=== PATIENT | female | born 1945 | race Caucasian/White ===

== ENCOUNTER 2016-11-04 13:53 | Inpatient (IN) ==
--- NOTE | 2016-11-04 14:21 | Emergency Department Note ---
Disposition Clinical Impression: Acute exacerbation of CHF (congestive heart failure) Qualifiers: Congestive heart failure type: diastolic Qualified Code(s): I50.33 - Acute on chronic diastolic (congestive) heart failure Dyspnea Qualifiers: Dyspnea type: unspecified Qualified Code(s): R06.00 - Dyspnea, unspecified Disposition: Admitted As Inpatient Referrals: Adalberto Quijano MD [Primary Care Provider] - Forms: ED Satisfaction Letter SOB HPI - General Chief Complaint: ED Shortness of Breath/Dyspnea Stated Complaint: Shortness of breaths Time Seen by Provider: 11/04/16 14:13 Source: patient, family Limitations: no limitations Nursing Notes Reviewed: Yes Vital Signs Reviewed: Yes - History of Present Illness She is a 71-year-old female who presents today from [facility] for increasing shortness of breath and fluid retention. The patient has gained weight over the past 2 weeks she took an extra dose of Lasix for several days and then went back to her once a day 40 mg. 's [facility] office today she has been complaining of more dyspnea she was sent down here for admission for IV diuresis. She has some intermittent chest pain but no chest pain at this time she denies any fevers chills or productive cough. She states she is having some lower extremity and abdominal swelling. Pt Subjective Complaint: shortness of breath Onset (ago): week(s) (1) Severity: mild Consistency/Duration: gradually worsening Improves with: oxygen, rest, upright position Worsens with: lying flat, exertion Associated symptoms: Reports: lower extremity pain. Denies: sputum production Treatment prior to arrival: none Cough present: No Sputum production: No - Related Data Home Medications Medication Instructions Recorded Confirmed Escitalopram [Lexapro] 20 mg PO QAM 05/16/15 09/19/16 Rosuvastatin [Crestor] 40 mg PO QPM 05/16/15 09/19/16 Warfarin [Coumadin] 1.5 mg PO SUWETHFR 01/15/16 09/19/16 Linaclotide [Linzess] 290 mcg PO DAILY PRN 01/23/16 09/19/16 Insulin Glargine,Hum.rec.anlog 20 unit SQ QPM 07/06/16 09/19/16 [Lantus Solostar] Insulin LISPRO [Humalog] 8 unit SQ TIDWM MDD Sliding 07/06/16 09/19/16 Losartan Potassium [Cozaar] 50 mg PO DAILY 07/06/16 09/19/16 Warfarin [Coumadin] 3 mg PO MOWEFR 07/06/16 09/19/16 Cholecalciferol (Vitamin D3) 8,000 unit PO DAILY 08/07/16 09/19/16 [Vitamin D3] Oxygen 2 l NS HS 08/07/16 09/19/16 Isosorbide MONOnitrate (24 HR) 90 mg PO DAILY 09/19/16 09/19/16 [Imdur] Melatonin 10 mg PO HS 09/19/16 09/19/16 Previous Rx's Medication Instructions Recorded Ranolazine [Ranexa] 1,000 mg PO BID #60 tab.er.12h 08/01/15 Aspirin 81 mg PO DAILY tab.chew 02/05/16 Magnesium Oxide [Mag-Ox] 400 mg PO BID 30 Days 02/05/16 Potassium Chloride 10 meq PO BIDWM 30 Days 02/05/16 Furosemide [Lasix] 60 mg PO BID #100 tablet 03/13/16 Metoprolol [Lopressor] 100 mg PO BID #0 tablet 07/10/16 Nitroglycerin 0.4 mg SL Q5MIN PRN #0 tab.subl 07/10/16 Clopidogrel [Plavix] 75 mg PO DAILY #30 tablet 08/15/16 Pantoprazole Sodium [Protonix] 40 mg PO DAILY #30 tablet. 08/15/16 Sucralfate [Carafate] 1 gm PO TID #90 udc 08/15/16 Furosemide [Lasix] 40 mg PO AD #15 tablet 10/17/16 Potassium Chloride [K-Tab ER] 20 meq PO DAILY #30 tablet.er 10/30/16 Allergies Allergy/AdvReac Type Severity Reaction Status Date / Time phenylbutazone Allergy Rash Verified 09/07/16 13:54 [From Butazolidin] amitriptyline [From Elavil] AdvReac Headache Verified 09/07/16 13:54 codeine AdvReac Headache Verified 09/07/16 13:54 desipramine AdvReac Headache Verified 09/07/16 13:54 lisinopril AdvReac Cough Verified 09/07/16 13:54 meperidine [From Demerol] AdvReac Headache Verified 09/07/16 13:54 nalbuphine AdvReac Headache Verified 09/07/16 13:54 Nortriptyline AdvReac Headache Verified 09/07/16 13:54 tiagabine AdvReac Headache Verified 09/07/16 13:54 All systems ED: reviewed and negative except as stated. Constitutional: Reports: weakness. Denies: fever, chills Gastrointestinal: Denies: abdominal pain, vomiting, melena Past Medical History - Past Medical History Source: patient, old records reviewed, nursing notes reviewed Medical history: Reports: arthritis, atrial fibrillation, cancer, CHF, coronary artery disease, CVA, DVT, diabetes, GERD, hyperlipidemia, hypertension, myocardial infarction, osteoporosis, peripheral artery disease, renal disease, TIA, valvular heart disease, other Surgical history: Reports: angioplasty/stent, breast surgery, carotid endarterectomy, cholecystectomy, orthopedic, other, other Psychiatric history: Reports: anxiety, depression INFORMATION SYSTEMS ARCHITECT history: Reports: no INFORMATION SYSTEMS ARCHITECT history - Social History Smoking Status: Never smoker Smokeless Tobacco Status: No Alcohol use: Reports: rarely Drug use: Reports: none Physical Exam - General Limitations: no limitations General appearance: alert, in no apparent distress Course Vital Signs Temperature 98.7 F 11/04/16 13:54 Pulse Rate 51 11/04/16 13:54 Respiratory Rate 18 11/04/16 13:54 Blood Pressure 139/87 11/04/16 13:54 O2 Sat by Pulse Oximetry 98 11/04/16 13:54 Temperature 98.7 F 11/04/16 13:54 Pulse Rate 48 11/04/16 15:00 Respiratory Rate 18 11/04/16 15:00 Blood Pressure 129/68 11/04/16 15:00 O2 Sat by Pulse Oximetry 93 L 11/04/16 15:00 Oxygen Delivery Oxygen Delivery Room Air Shortness of Breath/Dyspnea - MDM Narrative Medical decision making narrative: Cardiology team Dr. Coronado came down to evaluate the patient limited to the hospitalist service. - Differential Diagnosis Likely: acute exacerbation of chronic obstructive airways disease, congestive heart failure, pneumonia, asthma with exacerbation, pulmonary embolism, arrhythmia - Medical Records Medical records reviewed: Yes I reviewed the patient's medical records. - Lab Data Lab results reviewed: Yes I reviewed the patient's lab results. Result diagrams: 11/04/16 14:47 11/04/16 14:47 Lab Results 11/04/16 11/04/16 11/04/16 Range/Units 14:47 14:47 14:47 WBC 5.5 (4.3-11.1) K/mcL RBC 4.09 (3.82-4.97) M/mcL Hgb 10.9 L (11.5-15.4) g/dL Hct 32.9 L (35.3-44.9) % MCV 80.4 L (83.0-100.0) fL MCH 26.7 L (28.0-33.3) pg MCHC 33.1 (31.6-35.5) g/dL RDW 14.6 H (11.5-14.5) % Plt Count 187 (140-400) K/mcL MPV 10.0 (9.4-12.4) fL Immature Gran % 0.9 (0-4) % Seg Neutrophils % 65.0 % Lymphocytes % 22.0 % Monocytes % 7.7 % Eosinophils % 4.0 % Basophils % 0.4 % Neutrophils # 3.6 (1.6-8.9) K/mcL Lymphocytes # 1.2 (0.6-4.6) K/mcL Monocytes # 0.4 (0.0-1.3) K/mcL Eosinophils # 0.2 (0.0-0.6) K/mcL Basophils # 0.0 (0.0-0.2) K/mcL Sodium 140 (136-145) mEq/L Potassium 3.7 (3.5-4.5) mEq/L Chloride 105 (98-109) mEq/L Carbon Dioxide 26 (19-29) mEq/L BUN 21 H (7-20) mg/dL Creatinine 0.97 (0.57-1.11) mg/dL Est GFR ( Amer) > 60 (> 60) Est GFR (Non-Af Amer) 57 L (> 60) BUN/Creatinine Ratio 22 (6-26) Glucose 223 H (70-99) mg/dL Calculated Osmolality 300 (280-300) Calcium 9.4 (8.6-10.8) mg/dL Troponin I 0.05 H* (0-0.03) ng/mL B-Natriuretic Peptide (0-100) pg/mL 11/04/16 Range/Units 14:47 WBC (4.3-11.1) K/mcL RBC (3.82-4.97) M/mcL Hgb (11.5-15.4) g/dL Hct (35.3-44.9) % MCV (83.0-100.0) fL MCH (28.0-33.3) pg MCHC (31.6-35.5) g/dL RDW (11.5-14.5) % Plt Count (140-400) K/mcL MPV (9.4-12.4) fL Immature Gran % (0-4) % Seg Neutrophils % % Lymphocytes % % Monocytes % % Eosinophils % % Basophils % % Neutrophils # (1.6-8.9) K/mcL Lymphocytes # (0.6-4.6) K/mcL Monocytes # (0.0-1.3) K/mcL Eosinophils # (0.0-0.6) K/mcL Basophils # (0.0-0.2) K/mcL Sodium (136-145) mEq/L Potassium (3.5-4.5) mEq/L Chloride (98-109) mEq/L Carbon Dioxide (19-29) mEq/L BUN (7-20) mg/dL Creatinine (0.57-1.11) mg/dL Est GFR ( Amer) (> 60) Est GFR (Non-Af Amer) (> 60) BUN/Creatinine Ratio (6-26) Glucose (70-99) mg/dL Calculated Osmolality (280-300) Calcium (8.6-10.8) mg/dL Troponin I (0-0.03) ng/mL B-Natriuretic Peptide 451 H (0-100) pg/mL - Radiology Data Radiology results reviewed: Yes I reviewed the patient's radiology results. - EKG Data EKG attestation: Yes I reviewed and interpreted this EKG. EKG shows normal: Reports: sinus rhythm Rate: Reports: bradycardia (49) Heart block present: Reports: 1st Degree Interpretation: Reports: nonspecific ST-T wave changes
--- NOTE | 2016-11-04 14:38 | Cardiology Consult Note ---
<Amaury Espinal - Last Filed: 11/04/16 14:31> Date of Encounter: 11/04/16 Time of Encounter: 14:31 Assessment and Plan (1) Acute exacerbation of CHF (congestive heart failure) Current Visit: No Status: Acute Failed outpatient management IV diuresis Echocardiogram Admission to Hospitalist Group Qualifiers: Congestive heart failure type: diastolic Qualified Code(s): I50.33 - Acute on chronic diastolic (congestive) heart failure (2) Diastolic heart failure Current Visit: No Status: Chronic Noted from previous echo. Qualifiers: Heart failure chronicity: acute on chronic Qualified Code(s): I50.33 - Acute on chronic diastolic (congestive) heart failure (3) Atrial fibrillation Current Visit: No Status: Chronic Paraoxysmal. On Warfarin. Last INR 2.2 Qualifiers: Atrial fibrillation type: paroxysmal Qualified Code(s): I48.0 - Paroxysmal atrial fibrillation (4) Diabetes Current Visit: No Status: Acute Qualifiers: Diabetes mellitus type: type 1 Diabetes mellitus complication status: without complication Qualified Code(s): E10.9 - Type 1 diabetes mellitus without complications (5) HTN (hypertension) Current Visit: No Status: Chronic Qualifiers: Hypertension type: essential hypertension Qualified Code(s): I10 - Essential (primary) hypertension (6) CAD (coronary artery disease) Current Visit: No Status: Chronic Qualifiers: Coronary Disease-Associated Artery/Lesion type: [place] artery [place] vs. transplanted heart: [place] heart Associated angina: with unspecified angina Qualified Code(s): I25.119 - Atherosclerotic heart disease of [place] coronary artery with unspecified angina pectoris (7) COPD (chronic obstructive pulmonary disease) Current Visit: No Status: Chronic Qualifiers: COPD type: unspecified COPD Qualified Code(s): J44.9 - Chronic obstructive pulmonary disease, unspecified (8) Factor V Leiden Current Visit: No Status: Chronic On warfarin therapy. No new complaints. No unilateral leg swelling. Discussion w patient/family: The assessment and plan as outlined above was discussed with the patient and/or family members who expressed understanding and agreement. All questions were answered. Thank you for involving us in the care of your patient. Please call with any questions. History of Present Illness Consult date: 11/04/16 Requesting physician: Mo Glover Consult reason: CHF exacerbation Chief complaint: Weight gain, fatuge, Dyspnea History of present illness: Ms. Fischer is a 71 year old female with history of CHF arrives to the outpatient cardiology office for concern for weight gain and generalized fatigue. The patient was sent to the ED for further work-up and possible admission for failed outpatient management of CHF. The patient recently received cardiac cath in 09/30. A stent was placed at that time. The patient has since been admitted at [facility] and was placed on IV lasix at that admission with an Echo performed with noted LVEF of 45%. The patient was also noted to have Diastolic dysfunction as well. The patient was discharged on no diuretic home. She saw Dr. Hewitt in outpatient clinic and was started again on lasix 40 mg Daily. She subsequently, roughly 5 days later, went to the ED for dyspnea and generalized fatigue where her dose was increased to 40 mg BID. The patient states that she has continued to gain weight, roughly 7 lbs in 1 month. She states that she becomes short of breath when she lies flat. She does admit to intermittent chest pressure that goes unrelieved by nitro. She does state that the nitro does help her breathing after she takes it when she lies down. She does admit to new leg swelling, but not over the last few days. Patient does admit to Hx of HTN, DMII, Factor V Leiden. She is currently on coumadin with her last INR 2 days ago at 2.2. She denies fever, chills, vomiting, abdominal pain, focalized neuro deficits. Past Med Surg Social Fam HX - Past Medical History Attestation: Yes The following information was validated with the patient. Source: patient, old records reviewed Medical history: arthritis, atrial fibrillation, cancer, CHF, coronary artery disease, CVA, DVT, diabetes, GERD, hyperlipidemia, hypertension, myocardial infarction, osteoporosis, peripheral artery disease, renal disease, TIA, valvular heart disease, other Psychiatric history: anxiety, depression - Past Surgical History Surgical History: angioplasty/stent, breast surgery, carotid endarterectomy, cholecystectomy, orthopedic, other, other - Social History Smoking Status: Never smoker Smokeless Tobacco Status: No Alcohol use: rarely Drug use: none - Family History Father Family Member Ethnicity: Non- Living Status: Hx Family Cardiac Disorders: Yes Hx Family Respiratory Disorders: No Hx Family Cancer: No Hx Family GI Disorders: No Hx Family Endocrine Disorder: Yes Hx Family Neuromuscular Disorders: No Hx Family Neurologic Disorders: Yes Hx Family HEENT Disorders: No Hx Family Autoimmune Disorders: Yes Mother Family Member Ethnicity: Non- Living Status: Hx Family Cardiac Disorders: Yes Hx Family Respiratory Disorders: No Hx Family Cancer: Yes Hx Family GI Disorders: No Hx Family Endocrine Disorder: Yes Hx Family Neuromuscular Disorders: No Hx Family Neurologic Disorders: No Hx Family HEENT Disorders: No Hx Family Autoimmune Disorders: Yes (RA) Sister Living Status: Still Living Hx Family Cardiac Disorders: Yes Hx Family Respiratory Disorders: No Hx Family Cancer: No Hx Family GI Disorders: No Hx Family Endocrine Disorder: Yes Hx Family Neuromuscular Disorders: No Hx Family Neurologic Disorders: Yes Hx Family HEENT Disorders: No Hx Family Autoimmune Disorders: No Brother Living Status: Still Living Hx Family Cardiac Disorders: Yes Hx Family Respiratory Disorders: No Hx Family Cancer: No Hx Family GI Disorders: No Hx Family Endocrine Disorder: No Hx Family Neuromuscular Disorders: No Hx Family Neurologic Disorders: No Hx Family HEENT Disorders: No Hx Family Autoimmune Disorders: No Medications and Allergies Escitalopram [Lexapro] 20 mg PO QAM 05/16/15 [History] Rosuvastatin [Crestor] 40 mg PO QPM 05/16/15 [History] Ranolazine [Ranexa] 1,000 mg PO BID #60 tab.er.12h 08/01/15 [Rx] Warfarin [Coumadin] 1.5 mg PO SUTUSA 01/15/16 [History] Aspirin 81 mg PO DAILY tab.chew 02/05/16 [Rx] Insulin Glargine,Hum.rec.anlog [Lantus Solostar] 20 unit SQ QPM 07/06/16 [ History] Insulin LISPRO [Humalog] 10 unit SQ TIDWM MDD Sliding 07/06/16 [History] Losartan Potassium [Cozaar] 50 mg PO DAILY 07/06/16 [History] Warfarin [Coumadin] 3 mg PO MOWETHFR 07/06/16 [History] Nitroglycerin 0.4 mg SL Q5MIN PRN #0 tab.subl 07/10/16 [Rx] Oxygen 2 l NS HS 08/07/16 [History] Clopidogrel [Plavix] 75 mg PO DAILY #30 tablet 08/15/16 [Rx] Pantoprazole Sodium [Protonix] 40 mg PO DAILY #30 tablet.dr 08/15/16 [Rx] Sucralfate [Carafate] 1 gm PO TID #90 udc 08/15/16 [Rx] Melatonin 10 mg PO HS 09/19/16 [History] Potassium Chloride [K-Tab ER] 20 meq PO DAILY #30 tablet.er 10/30/16 [Rx] Albuterol Sulfate [Ventolin Hfa] 2 puff IH Q4H PRN 11/04/16 [History] Amlodipine [Norvasc] 5 mg PO DAILY 11/04/16 [History] Anastrozole [Arimidex] 1 mg PO DAILY 11/04/16 [History] Carvedilol 12.5 mg PO BID 11/04/16 [History] Cholecalciferol (D-3) [Vitamin D] 1,000 unit PO DAILY 11/04/16 [History] Furosemide [Lasix] 40 mg PO DAILY 11/04/16 [History] Isosorbide MONOnitrate [Isosorbide Mononitrate ER] 120 mg PO DAILY 11/04/16 [ History] Allergies phenylbutazone [From Butazolidin] Allergy (Verified 09/07/16 13:54) Rash amitriptyline [From Elavil] Adverse Reaction (Verified 09/07/16 13:54) Headache codeine Adverse Reaction (Verified 09/07/16 13:54) Headache desipramine Adverse Reaction (Verified 09/07/16 13:54) Headache lisinopril Adverse Reaction (Verified 09/07/16 13:54) Cough meperidine [From Demerol] Adverse Reaction (Verified 09/07/16 13:54) Headache nalbuphine Adverse Reaction (Verified 09/07/16 13:54) Headache Nortriptyline Adverse Reaction (Verified 09/07/16 13:54) Headache tiagabine Adverse Reaction (Verified 09/07/16 13:54) Headache All Systems Review: A 10-system review of systems was performed and is negative for pertinent findings except as documented above in the HPI. - Constitutional Constitutional: fatigue, weight gain - Cardiovascular Cardiovascular: leg edema, orthopnea Physical Examination Vital Signs, Last 4 Hours Temp Pulse Resp BP Pulse Ox 11/04/16 13:54 98.7 F 51 18 139/87 98 General: Conversant, No Apparent Distress HEENT: Atraumatic, Normocephaly, Mucus Membranes Moist Neck: No JVD, Normal carotid pulses Cardiac: Reg Rate and Rhythm, Normal S1 and S2, No Murmur Lungs: Other (Coarse breath sounds) Neuro: Alert and responsive, No focal deficits noted Abdomen: Soft, Non-Tender Skin: No rashes noted on visualized skin Musculoskeletal: No Chest Wall Tenderness Extremities: No Clubbing, No Cyanosis, No Edema, Normal Pulses Consult Discharge Plan - Plan Referrals: Adalberto Quijano MD [Primary Care Provider] - - Attending Attestation I examined this patient and my medical decision-making was reviewed with the Resident Physician. I agree with the documented findings, disposition and treatment plan as described except to the extent set forth below. <CliffYosi G - Last Filed: 11/05/16 10:25> Date of Encounter: 11/05/16 Assessment and Plan Discussion w patient/family: The assessment and plan as outlined above was discussed with the patient and/or family members who expressed understanding and agreement. All questions were answered. Thank you for involving us in the care of your patient. Please call with any questions. History of Present Illness History of present illness: Ms. Fischer is a 71 year old female All Systems Review: A 10-system review of systems was performed and is negative for pertinent findings except as documented above in the HPI. Physical Examination Vital Signs, Last 4 Hours Temp Pulse Resp BP Pulse Ox 11/05/16 08:53 99 11/05/16 07:02 97.2 F L 88 12 123/67 99 Results 11/05/16 03:28 11/05/16 03:28 Lab Results 11/04/16 11/04/16 11/05/16 20:02 20:02 03:28 WBC Hgb Hct Plt Count INR 2.8 Sodium Potassium Chloride Carbon Dioxide BUN Creatinine Glucose Calcium Magnesium Troponin I 0.04 H* 0.05 H* 11/05/16 11/05/16 11/05/16 03:28 03:28 03:28 WBC 5.6 Hgb 11.4 L Hct 34.5 L Plt Count 184 INR 2.7 Sodium 142 Potassium 3.2 L Chloride 105 Carbon Dioxide 27 BUN 18 Creatinine 0.82 Glucose 103 H Calcium 9.2 Magnesium 1.6 Troponin I - Attending Attestation pt seen yesterday , this is a late entry Pt has VILLA , PND, no cp, palpitations VSS JVD: 6-7 cm Chest: occ crackles CVS: RRR CXR reviewed : mild CHF echo normal ef: grade 1 diastolic dysfunction plan; IV diuresis low Na diet BiPap probABLY SWITCH to another diuretic such as Bumex prior to d/c PT OT Thanks !
[2016-11-04 15:01] LABS: Basophils % 0.4 %; Eosinophils # 0.2 K/mcL (0.0-0.6); Hematocrit 32.9 % (35.3-44.9); Hemoglobin 10.9 g/dL (11.5-15.4); Immature Granulocytes % 0.9 % (0-4); Lymphocytes # 1.2 K/mcL (0.6-4.6); Mean Corpuscular HGB Conc 33.1 g/dL (31.6-35.5); Mean Corpuscular Hemoglobin 26.7 pg (28.0-33.3); Mean Corpuscular Volume 80.4 fL (83.0-100.0); Monocytes # 0.4 K/mcL (0.0-1.3); Monocytes % 7.7 %; Neutrophils # 3.6 K/mcL (1.6-8.9); Platelet Count 187 K/mcL (140-400); Red Blood Count 4.09 M/mcL (3.82-4.97); Red Cell Distribution Width 14.6 % (11.5-14.5)
[2016-11-04 15:06] LABS: BUN/Creatinine Ratio 22 (6-26); Blood Urea Nitrogen 21 mg/dL (7-20); Calcium 9.4 mg/dL (8.6-10.8); Carbon Dioxide 26 mEq/L (19-29); Chloride 105 mEq/L (98-109); Glucose 223 mg/dL (70-99); Osmolality,Calculated 300 (280-300); Potassium 3.7 mEq/L (3.5-4.5); Sodium 140 mEq/L (136-145); eGFR For African Americans > 60 (> 60); eGFR For Non-African Americans 57 (> 60)
[2016-11-04] MEDS ORDERED: Furosemide 40 MG/4 ML VIAL IVP ONE (16:02)
[2016-11-04] MEDS ORDERED: Naloxone 0.4 MG/ML INJ IVP PRN (18:17)
[2016-11-04] MEDS ORDERED: Nitroglycerin 0.4 MG TAB.SUBL SL PRN (18:29)
[2016-11-04] MEDS ORDERED: *HR* Dextrose 50 % in Water (Syg) 50 ML SYRINGE IVP PRN (18:45)
[2016-11-04] MEDS ORDERED: D5% in Water 1,000 ML IV PRN (18:45)
[2016-11-04] MEDS ORDERED: Dextrose Gel 15 GM PO PRN ×2 (18:45)
--- NOTE | 2016-11-04 18:55 | Internal Med History&Physical ---
Date of Encounter: 11/04/16 Time of Encounter: 18:00 Assessment and Plan (1) Acute exacerbation of CHF (congestive heart failure) Current visit: Yes Status: Acute 1 per medical records last echo 09/30/16 LVEF of 45% with diastolic dysfunction. She has had increasing episodes of shortness of breath and fatigue and weight gain over the past month. Attempts made as an outpatient to manage with oral Lasix without improvement. Was given IV Lasix as well as oxygen in the ER. We will continue with oxygen to maintain SPO2 greater than 92% 2 we will continue with IV Lasix 40 mg twice a day 3 we will obtain cardiac echo to reassess EF 4 1500 mL fluid restriction 5 daily weights and monitor intake and output 6 cardiology consulted Qualifiers: Congestive heart failure type: combined Qualified Code(s): I50.43 - Acute on chronic combined systolic (congestive) and diastolic (congestive) heart failure (2) DVT prophylaxis Current visit: No Status: Acute 1 she is on Coumadin-apply PRASAD reyese (3) Diabetes Current visit: No Status: Acute 1 Accu-Cheks before meals and at bedtime-continue with basal as well as correctional and sliding scale maintain postprandial less than 180 2 diabetic diet Qualifiers: Diabetes mellitus type: type 1 Diabetes mellitus complication status: without complication Qualified Code(s): E10.9 - Type 1 diabetes mellitus without complications (4) Paroxysmal a-fib Current visit: No Status: Acute 1 presently sinus rhythm with first-degree block. We will continue with Coumadin for anticoagulation 2 we will obtain INR last INR was 2.2 2 days ago-pharmacy to dose- INR goal 2-3 (5) CAD (coronary artery disease) Current visit: No Status: Chronic 1 patient has hx stent placement will continue with aspirin Isorbid Renexa statin- presently chest pain-free nitroglycerin as needed for chest pain oxygen as needed Qualifiers: Coronary Disease-Associated Artery/Lesion type: [place] artery [place] vs. transplanted heart: [place] heart Associated angina: without angina Qualified Code(s): I25.10 - Atherosclerotic heart disease of [place] coronary artery without angina pectoris (6) Factor V Leiden Current visit: No Status: Chronic 1 history of factor V Leiden will continue with Coumadin will check INR daily INR goal 2- 3.0 (7) HTN (hypertension) Current visit: No Status: Chronic 1 presently controlled continue with home medications Colest[place] maintain systolic less than 140 Qualifiers: Hypertension type: essential hypertension Qualified Code(s): I10 - Essential (primary) hypertension (8) CKD (chronic kidney disease) stage 3, GFR 30-59 ml/min Current visit: Yes Status: Acute 1 is like creatinine stable. 0.97 will continue to monitor creatinine 2 avoid nephrotoxins 3 monitor intake and output 4 daily weights Internal Medicine - H&P: HPI Chief complaint: SOB weight gain Admitted From: Emergency Dept Plans for Post Hospital Care: Home History of present illness: Ms. Fischer is a 71 year old female with past medical history of CVA diabetes type 2 paroxysmal A. fib portal vein thrombosis CAD with stent CK D3 diastolic heart failure factor V Leiden on Coumadin. The patient underwent cardiac catheter 09/30/16 at the [facility] with stent placement at that time. Cardiac echo performed at [facility] noted vef. The patient was also noted to have diastolic dysfunction as well. Patient was discharged home 2016 and was not placed on any diuretics. She followed up with Dr. Bond outpatient clinic and was was placed back on her home dose of 40 mg Lasix daily. A few days later the patient presented to the ER for dyspnea and generalized fatigue her Lasix was increased to 40 mg twice a day. She continues to gain weight roughly 7 pounds in one month experiencing increased shortness of breath and orthopnea . She presented to Dr. Bond clinic today for follow-up visit continue to complain of increasing shortness of breath weight gain, abdominal, lower extremity edema and fatigue. She denies any fevers chills nausea vomiting abdominal pain. She does complain of off and on chest pressure however she does not have any at this time. She was advised to go to the ER for evaluation. According to ER records chest x-ray revealed cardiomegaly with vascular congestion. Lab workup unremarkable except for troponin 0.05 EKG bradycardic otherwise unchanged from previous EKG. Patient was seen by cardiology in the ER. She was given IV Lasix and oxygen and has been admitted for further workup and evaluation. Presently the patient denies any chest pain. She does have shortness of breath on exertion she does not appear to be in any respiratory distress at this time. Vital signs are stable. I reviewed the case with Dr. Agosto who agrees with plan Past Med Surg Social Fam HX - Past Medical History Medical history: arthritis, atrial fibrillation, cancer, CHF, coronary artery disease, CVA, DVT, diabetes, GERD, hyperlipidemia, hypertension, myocardial infarction, osteoporosis, peripheral artery disease, renal disease, TIA, valvular heart disease, other Psychiatric history: anxiety, depression - Past Surgical History Surgical History: angioplasty/stent, breast surgery, carotid endarterectomy, cholecystectomy, orthopedic, other, other - Social History Smoking Status: Never smoker Smokeless Tobacco Status: No Alcohol use: rarely Drug use: none - Family History Father Adopted: No Family Member Ethnicity: Non- Living Status: Hx Family Cardiac Disorders: Yes Hx Family Respiratory Disorders: No Hx Family Cancer: No Hx Family GI Disorders: No Hx Family Endocrine Disorder: Yes Hx Family Neuromuscular Disorders: No Hx Family Neurologic Disorders: Yes Hx Family HEENT Disorders: No Hx Family Autoimmune Disorders: Yes Mother Family Member Ethnicity: Non- Living Status: Hx Family Cardiac Disorders: Yes Hx Family Respiratory Disorders: No Hx Family Cancer: Yes Hx Family GI Disorders: No Hx Family Endocrine Disorder: Yes Hx Family Neuromuscular Disorders: No Hx Family Neurologic Disorders: No Hx Family HEENT Disorders: No Hx Family Autoimmune Disorders: Yes (RA) Sister History Unknown: Yes Adopted: No Living Status: Still Living Hx Family Cardiac Disorders: Yes Hx Family Respiratory Disorders: No Hx Family Cancer: No Hx Family GI Disorders: No Hx Family Endocrine Disorder: Yes Hx Family Neuromuscular Disorders: No Hx Family Neurologic Disorders: Yes Hx Family HEENT Disorders: No Hx Family Autoimmune Disorders: No Brother History Unknown: Yes Adopted: No Living Status: Still Living Hx Family Cardiac Disorders: Yes Hx Family Respiratory Disorders: No Hx Family Cancer: No Hx Family GI Disorders: No Hx Family Endocrine Disorder: No Hx Family Neuromuscular Disorders: No Hx Family Neurologic Disorders: No Hx Family HEENT Disorders: No Hx Family Autoimmune Disorders: No Internal Medicine - H&P: Meds Escitalopram [Lexapro] 20 mg PO QAM 05/16/15 [History] Rosuvastatin [Crestor] 40 mg PO QPM 05/16/15 [History] Ranolazine [Ranexa] 1,000 mg PO BID #60 tab.er.12h 08/01/15 [Rx] Warfarin [Coumadin] 1.5 mg PO SUTUSA 01/15/16 [History] Aspirin 81 mg PO DAILY tab.chew 02/05/16 [Rx] Insulin Glargine,Hum.rec.anlog [Lantus Solostar] 20 unit SQ QPM 07/06/16 [ History] Insulin LISPRO [Humalog] 10 unit SQ TIDWM MDD Sliding 07/06/16 [History] Losartan Potassium [Cozaar] 50 mg PO DAILY 07/06/16 [History] Warfarin [Coumadin] 3 mg PO MOWETHFR 07/06/16 [History] Nitroglycerin 0.4 mg SL Q5MIN PRN #0 tab.subl 07/10/16 [Rx] Oxygen 2 l NS HS 08/07/16 [History] Clopidogrel [Plavix] 75 mg PO DAILY #30 tablet 08/15/16 [Rx] Pantoprazole Sodium [Protonix] 40 mg PO DAILY #30 tablet.dr 08/15/16 [Rx] Sucralfate [Carafate] 1 gm PO TID #90 udc 08/15/16 [Rx] Melatonin 10 mg PO HS 09/19/16 [History] Potassium Chloride [K-Tab ER] 20 meq PO DAILY #30 tablet.er 10/30/16 [Rx] Albuterol Sulfate [Ventolin Hfa] 2 puff IH Q4H PRN 11/04/16 [History] Amlodipine [Norvasc] 5 mg PO DAILY 11/04/16 [History] Anastrozole [Arimidex] 1 mg PO DAILY 11/04/16 [History] Carvedilol 12.5 mg PO BID 11/04/16 [History] Cholecalciferol (D-3) [Vitamin D] 1,000 unit PO DAILY 11/04/16 [History] Furosemide [Lasix] 40 mg PO DAILY 11/04/16 [History] Isosorbide MONOnitrate [Isosorbide Mononitrate ER] 120 mg PO DAILY 11/04/16 [ History] Allergies phenylbutazone [From Butazolidin] Allergy (Verified 09/07/16 13:54) Rash amitriptyline [From Elavil] Adverse Reaction (Verified 09/07/16 13:54) Headache codeine Adverse Reaction (Verified 09/07/16 13:54) Headache desipramine Adverse Reaction (Verified 09/07/16 13:54) Headache lisinopril Adverse Reaction (Verified 09/07/16 13:54) Cough meperidine [From Demerol] Adverse Reaction (Verified 09/07/16 13:54) Headache nalbuphine Adverse Reaction (Verified 09/07/16 13:54) Headache Nortriptyline Adverse Reaction (Verified 09/07/16 13:54) Headache tiagabine Adverse Reaction (Verified 09/07/16 13:54) Headache All Systems PM: A 10-system review of systems was performed and is negative for pertinent findings except as documented above in the HPI. - Constitutional Constitutional: fatigue, weight gain - Cardiovascular Cardiovascular ROS IM: chest pain, dyspnea on exertion, edema, orthopnea - Respiratory Respiratory: dyspnea on exertion - Gastrointestinal Gastrointestinal: bloating - Neurological Neurological ROS: no confusion, no convulsions, no focal weakness, no numbness, no tingling, no tremor(s) - Constitutional Vitals: Temp Pulse Resp BP Pulse Ox 98.7 F 87 18 124/84 94 L 11/04/16 13:54 11/04/16 15:57 11/04/16 17:39 11/04/16 17:39 11/04/16 17:38 General appearance: Present: A&O X 3, obese - Head Head exam: Present: atraumatic, normocephalic - Eye Eye exam: Present: PERRL, conjuntiva pink, sclera anicteric Pupils: Present: PERRL - Neck Neck exam general surgery: Present: supple, trachea midline. Absent: lymphadenopathy - Respiratory Respiratory exam: Present: CTAB. Absent: accessory muscle use, rales, rhonchi, wheezes - Cardiovascular Cardiovascular exam: Present: RRR, +S1, +S2. Absent: diastolic murmur, gallop, rubs, systolic murmur - GI/Abdominal GI/Abdominal exam: Present: distended, normal bowel sounds, soft, no peritoneal signs. Absent: tenderness - Extremities Exam Extremities exam: Present: pedal edema, warm, radial pulses palpable and symetrical. Absent: calf tenderness, cyanotic - Neurological Exam Neurological exam: Present: CN II-XII intact, oriented X3, no focal deficits. Absent: pronater drift, facial droop, speech deficit Internal Med - H&P Results - Labs CBC & Chem 7: 11/04/16 14:47 11/04/16 14:47 - EKG Data EKG shows normal: ST-T waves Rate: bradycardia - EKG Data Prior EKG available for review: yes When compared to previous EKG: there is no significant change EKG comments: 11/04/16 19:21 I reviewed EKG with no acute ST-T wave changes noted - Diagnostic Studies Chest x-ray Additional comments: Per cardiology read as cardiomegaly with pulmonary congestion
[2016-11-04 20:22] LABS: INR 2.8; Prothrombin Time 30.8 Seconds (9.4-12.1)
[2016-11-04] MEDS: Ranolazine 500 MG TAB.ER.12H PO SCH (20:59)
[2016-11-04] MEDS: Insulin DETEMIR 100 UNIT/ML X5UNITS SQ SCH (20:59)
[2016-11-04] MEDS: Melatonin 3 MG TABLET PO SCH (20:59)
[2016-11-04] MEDS: Insulin LISPRO 300 UNITS/3 ML VIAL SQ SCH (21:12)
[2016-11-04] MEDS ORDERED: *HR* Warfarin 3 MG TABLET PO SCH (22:30)
[2016-11-04] MEDS ORDERED: Furosemide 40 MG/4 ML VIAL IVP SCH (23:00)
[2016-11-05 04:09] LABS: Basophils % 0.4 %; Eosinophils # 0.3 K/mcL (0.0-0.6); Eosinophils % 4.9 %; Hematocrit 34.5 % (35.3-44.9); Hemoglobin 11.4 g/dL (11.5-15.4); Immature Granulocytes % 0.7 % (0-4); Lymphocytes # 1.1 K/mcL (0.6-4.6); Lymphocytes % 20.5 %; Mean Corpuscular Hemoglobin 26.6 pg (28.0-33.3); Mean Corpuscular Volume 80.4 fL (83.0-100.0); Mean Platelet Volume 10.3 fL (9.4-12.4); Monocytes # 0.4 K/mcL (0.0-1.3); Monocytes % 7.7 %; Neutrophils # 3.7 K/mcL (1.6-8.9); Platelet Count 184 K/mcL (140-400); Red Blood Count 4.29 M/mcL (3.82-4.97); Red Cell Distribution Width 14.7 % (11.5-14.5); Segmented Neutrophils % 65.8 %
[2016-11-05 04:12] LABS: INR 2.7
[2016-11-05 04:15] LABS: BUN/Creatinine Ratio 22 (6-26); Blood Urea Nitrogen 18 mg/dL (7-20); Calcium 9.2 mg/dL (8.6-10.8); Carbon Dioxide 27 mEq/L (19-29); Chloride 105 mEq/L (98-109); Glucose 103 mg/dL (70-99); Magnesium 1.6 mg/dL (1.6-2.6); Osmolality,Calculated 296 (280-300); Potassium 3.2 mEq/L (3.5-4.5); Sodium 142 mEq/L (136-145); eGFR For African Americans > 60 (> 60); eGFR For Non-African Americans > 60 (> 60)
--- NOTE | 2016-11-05 09:05 | Cardiology Progress Note ---
Addendum entered and electronically signed by Amaury Espinal DO 11/05/16 11: 35: EKG repeat reviewed by myself and Dr. Coronado for concern during Echo. EKG revealed 2:1, 3:1 Atrial flutter without heart block. We will continue to administer her current warfarin therapy. Original Note: <Amaury Espinal - Last Filed: 11/05/16 09:01> Date of Encounter: 11/05/16 Time of Encounter: 09:02 Assessment and Plan (1) Acute exacerbation of CHF (congestive heart failure) Current Visit: No Status: Acute IV diuresis to continue, consider switching to PO today Echocardiogram pending Qualifiers: Congestive heart failure type: diastolic Qualified Code(s): I50.33 - Acute on chronic diastolic (congestive) heart failure (2) Diastolic heart failure Current Visit: No Status: Chronic Noted from previous echo. Qualifiers: Heart failure chronicity: acute on chronic Qualified Code(s): I50.33 - Acute on chronic diastolic (congestive) heart failure (3) Atrial fibrillation Current Visit: No Status: Chronic Paraoxysmal. On Warfarin. INR 2.7 Qualifiers: Atrial fibrillation type: paroxysmal Qualified Code(s): I48.0 - Paroxysmal atrial fibrillation (4) Diabetes Current Visit: No Status: Acute Qualifiers: Diabetes mellitus type: type 1 Diabetes mellitus complication status: without complication Qualified Code(s): E10.9 - Type 1 diabetes mellitus without complications (5) HTN (hypertension) Current Visit: No Status: Chronic Qualifiers: Hypertension type: essential hypertension Qualified Code(s): I10 - Essential (primary) hypertension (6) CAD (coronary artery disease) Current Visit: No Status: Chronic Qualifiers: Coronary Disease-Associated Artery/Lesion type: [place] artery [place] vs. transplanted heart: [place] heart Associated angina: without angina Qualified Code(s): I25.10 - Atherosclerotic heart disease of [place] coronary artery without angina pectoris (7) COPD (chronic obstructive pulmonary disease) Current Visit: No Status: Chronic Qualifiers: COPD type: unspecified COPD Qualified Code(s): J44.9 - Chronic obstructive pulmonary disease, unspecified (8) Factor V Leiden Current Visit: No Status: Chronic Discussion w patient/family: The assessment and plan as outlined above was discussed with the patient and/or family members who expressed understanding and agreement. All questions were answered. Thank you for involving us in the care of your patient. Please call with any questions. Subjective Principal diagnosis: Acute decompensation of CHF Interval history: Patient has been receiving IV lasix which she states have helped her overnight. She uses home O2 PRN but states that since she wore it overnight she feels better. She also used CPAP overnight which helped her breathing. Patient denies any new complaints. Objective Vital Signs, Last 4 Hours Temp Pulse Resp BP Pulse Ox 11/05/16 07:02 97.2 F L 88 12 123/67 99 General: Conversant, No Apparent Distress HEENT: Atraumatic, Normocephaly, Mucus Membranes Moist Neck: No JVD, Normal carotid pulses Cardiac: Reg Rate and Rhythm, Normal S1 and S2, No Murmur Lungs: Normal Breath Sounds, No Wheeze, Rales, Rhonchi Neuro: Alert and responsive, No focal deficits noted Abdomen: Soft, Non-Tender Skin: No rashes noted on visualized skin Musculoskeletal: No Chest Wall Tenderness Extremities: No Clubbing, No Cyanosis, No Edema Results 11/05/16 03:28 11/05/16 03:28 Lab Results 11/04/16 11/04/16 11/05/16 20:02 20:02 03:28 WBC Hgb Hct Plt Count INR 2.8 Sodium Potassium Chloride Carbon Dioxide BUN Creatinine Glucose Calcium Magnesium Troponin I 0.04 H* 0.05 H* 11/05/16 11/05/16 11/05/16 03:28 03:28 03:28 WBC 5.6 Hgb 11.4 L Hct 34.5 L Plt Count 184 INR 2.7 Sodium 142 Potassium 3.2 L Chloride 105 Carbon Dioxide 27 BUN 18 Creatinine 0.82 Glucose 103 H Calcium 9.2 Magnesium 1.6 Troponin I - Imaging and Cardiology Chest Xray: report reviewed Echo: pending - EKG Interpretation EKG results cardiology: personally reviewed, no diagnostic ischemia Consult Discharge Plan - Plan Referrals: Adalberto Quijano MD [Primary Care Provider] - Attending MD Adm Certification - Admission Certification Admission Certification: For traditional Medicare patients the provided hospital inpatient services are reasonable and necessary and in the case of services not specified as inpatient -only under 42 CFR 419.22 (n), that they are appropriately provided as inpatient services in accordance 42 CFR 412.3. For Critical Access Hospital the patient may reasonably be expected to be discharged or transferred to a hospital within 96 hours after admission to the Critical Access Hospital. Plans for Post Hospital Care: Home [facility] Certification: I certify that the beneficiary may reasonable be expected to be discharged or transferred to a hospital within 96 hours after admission to the Critical Access Hospital ([facility]). - Attending Attestation I examined this patient and my medical decision-making was reviewed with the Resident Physician. I agree with the documented findings, disposition and treatment plan as described except to the extent set forth below. <Yosi Coronado G - Last Filed: 11/05/16 12:20> Date of Encounter: 11/05/16 Assessment and Plan Discussion w patient/family: The assessment and plan as outlined above was discussed with the patient and/or family members who expressed understanding and agreement. All questions were answered. Thank you for involving us in the care of your patient. Please call with any questions. Objective Vital Signs, Last 4 Hours Temp Pulse Resp BP Pulse Ox 11/05/16 11:11 97.7 F 99 18 124/75 99 11/05/16 08:53 99 Results 11/05/16 03:28 11/05/16 03:28 Lab Results 11/04/16 11/04/16 11/05/16 20:02 20:02 03:28 WBC Hgb Hct Plt Count INR 2.8 Sodium Potassium Chloride Carbon Dioxide BUN Creatinine Glucose Calcium Magnesium Troponin I 0.04 H* 0.05 H* 11/05/16 11/05/16 11/05/16 03:28 03:28 03:28 WBC 5.6 Hgb 11.4 L Hct 34.5 L Plt Count 184 INR 2.7 Sodium 142 Potassium 3.2 L Chloride 105 Carbon Dioxide 27 BUN 18 Creatinine 0.82 Glucose 103 H Calcium 9.2 Magnesium 1.6 Troponin I 11/05/16 10:48 WBC Hgb Hct Plt Count INR Sodium Potassium Chloride Carbon Dioxide BUN Creatinine Glucose Calcium Magnesium Troponin I 0.03 Attending MD Adm Certification - Admission Certification Admission Certification: For traditional Medicare patients the provided hospital inpatient services are reasonable and necessary and in the case of services not specified as inpatient -only under 42 CFR 419.22 (n), that they are appropriately provided as inpatient services in accordance 42 CFR 412.3. For Critical Access Hospital the patient may reasonably be expected to be discharged or transferred to a hospital within 96 hours after admission to the Critical Access Hospital. [facility] Certification: I certify that the beneficiary may reasonable be expected to be discharged or transferred to a hospital within 96 hours after admission to the Critical Access Hospital ([facility]). Attestation Statement - Attestation Attestation: I examined this patient and my medical decision-making was reviewed with the CERTIFIED RESIDENTIAL MEDICATION AIDE/PA/Advanced Practice Nurse/Resident Physician. I agree with the documented findings, disposition and treatment plan as described except to the extent set forth below. Pt's sob is better, adina with oxygen echo shows a ef of 45% (essentially unchanged) Diastolic dysfunction VSS JVD: 6-7 cm Chest : clear CVR: irregular EKG reviewed by me shows aflutter 3:1 plan: 1 more day of diuresis IV then switch to po PT OT maybe a aflutter ablation candidate cont with anti coag d/w pt
[2016-11-05] MEDS: Insulin LISPRO 300 UNITS/3 ML VIAL SQ SCH ×7 (09:38→21:02)
[2016-11-05] MEDS: Magnesium Oxide 400 MG TABLET PO SCH ×2 (10:19→20:47)
[2016-11-05] MEDS: Aspirin 81 MG TAB.CHEW PO SCH (10:19)
[2016-11-05] MEDS: Isosorbide MONOnitrate (24 HR) 60 MG TAB.ER.24H PO SCH (10:19)
[2016-11-05] MEDS: Cholecalciferol (D-3) 1,000 UNIT TABLET PO SCH (10:19)
[2016-11-05] MEDS: Ranolazine 500 MG TAB.ER.12H PO SCH ×2 (10:19→20:48)
[2016-11-05] MEDS: Anastrozole 1 MG TABLET PO SCH (10:19)
[2016-11-05] MEDS: amLODIPine 5 MG TABLET PO SCH (10:21)
--- NOTE | 2016-11-05 11:04 | ECHO - Doppler Report ---
Echocardiogram Name: Miriam Fischer Date of Study: 11/05/2016 Date: 1945 Ht: 58.0 in Medical Record#: [id number] Age: 71 Wt: 154.0 lb Gender: Female BSA: 1.63 Order #: [id number] Location: [facility] Room #: 2A36 Reading Physician: Sayda Hewitt DO Ms Sql Server Developer: JIE StephensonT, [facility] Ordering Physician: Nena Stratton CNP Primary Physician: Adalberto Quijano MD Indications: Shortness of breath Impressions: LVEF 45-50%. Mild global LV systolic dysfunction. Moderate concentric left ventricular hypertrophy. Indeterminate diastolic function. Normal right ventricular size and function. Mild- moderate aortic regurgitation. No pulmonary hypertension. Rhythm appears to be junctional with AVB. Recommend ECG and further evaluation. Cardiology service aware. Left Ventricular Wall Motion: Rest Echo Findings The mid anterior septal, mid inferior lateral, basal anterior septal and basal inferior lateral hill were hypokinetic. All other wall segments showed normal motion. Findings: Study Quality * Technically adequate exam. ECG Findings * Junctional rhythm with AVB. Left Ventricle * Moderate concentric left ventricular hypertrophy. * Indeterminate diastolic function. * LVEF 45-50%. Mitral Valve * Mild mitral annular calcification * Trace mitral regurgitation. * No mitral stenosis. * Mildly calcified mitral valve leaflets. Left Atrium * Moderately dilated left atrium. Aortic Valve * Aortic valve not well visualized. * No aortic stenosis. * Mild-moderate aortic regurgitation. Tricuspid Valve * Tricuspid valve not well visualized. * No tricuspid regurgitation. * Estimated RA pressure is 3 mmHg. * Estimated RVSP is 15 mmHg. * No pulmonary hypertension. Pulmonic Valve * Pulmonic valve is not well visualized. * No pulmonic stenosis. * No pulmonic regurgitation. Pulmonary Artery * Pulmonary artery not well visualized. Right Atrium * Normal right atrial size. Right Ventricle * Normal right ventricular structure and function. Interatrial Septum * No evidence of PFO by color Doppler. IVC * Normal IVC dimensions and inspiratory collapse. Pericardium * There is no pericardial effusion present. Aorta * Normally sized aortic root. History Hypertension Diabetes Hypercholesteremia Family History of CAD History of CAD/PTCA Myocardial Infarction 2016 a Previous Echo was performed. Measurements: BP: 123/ 67 2D Normal Values IVSd: 1.70 cm 0.6 - 1.0 cm LVIDd: 3.80 cm 3.7 - 5.6 cm LVPWd: 1.50 cm 0.6 - 1.1 cm LVIDs: 2.80 cm 1.5 - 3.6 cm AO: 2.90 cm < 4.0 cm LA: 4.20 cm 2.0 - 4.0cm %FS: 26.30 cm >25 % LA volume: 35 Mitral Valve Peak E:1.00 m/sec Peak A:.57 m/sec E/A Ratio:1.8 Aortic Valve AI pressure Half-time: 684.00 msec Tricuspid Valve TV Regurg Peak Grad: 12.00mmHg TV Regurg Peak Lm: 1.73m/sec Updated by Sayda Hewitt on 11/05/2016 10:57:25 AM electronically signed on 11/05/2016 10:58:39 AM with status of Final Wall Motion [place]: 1=Normal, 2=Hypokinesis, 3=Akinesis, 4=Dyskinesis, 5=Aneurysmal, 6=Hyperkinetic, X=Not Visualized (Blank)=Missing
--- NOTE | 2016-11-05 13:17 | Internal Med Progress Note ---
<Rylie Glover - Last Filed: 11/05/16 13:12> Date of Encounter: 11/05/16 Time of Encounter: 10:50 - Assessment and plan (1) Acute exacerbation of CHF (congestive heart failure) Current Visit: Yes Status: Acute Assessment and plan: ECHO 11/05/16 with LVEF 45-50% moderate diastolic and mild systolic dysfunction. Rhythm during ECHO appeared junctional with AV block. However, cardiology repeated EKG which was found to be 2:1 and 3:1 atrial flutter without head block. It is difficult to measure diuresed urine output as patient is incontinent of urine. Patient is overall clinically improved with IV lasix at this time. Appreciate cardiology recommendations. Plan: IV lasix, will plan to switch to po tomorrow Oxygen supplemenation Daily weights, I&O measurements 1500mL fluid restriction Qualifiers: Congestive heart failure type: combined Qualified Code(s): I50.43 - Acute on chronic combined systolic (congestive) and diastolic (congestive) heart failure (2) Combined systolic and diastolic congestive heart failure Current Visit: Yes Status: Acute Assessment and plan: Plan as above Qualifiers: Congestive heart failure chronicity: acute on chronic Qualified Code(s): I50.43 - Acute on chronic combined systolic (congestive) and diastolic ( congestive) heart failure (3) Atrial fibrillation Current Visit: No Status: Chronic Assessment and plan: On coumadin, INR 2.7 Qualifiers: Atrial fibrillation type: paroxysmal Qualified Code(s): I48.0 - Paroxysmal atrial fibrillation (4) Diabetes mellitus Current Visit: No Status: Chronic Assessment and plan: Levemir 18u qhs Lispro 6u TIDWM Low dose SS ACHS Qualifiers: Diabetes mellitus type: type 2 Diabetes mellitus complication status: with unspecified complications Diabetes mellitus detention insulin use: with intermediate accountant use Qualified Code(s): E11.8 - Type 2 diabetes mellitus with unspecified complications; Z79.4 - senior living (current) use of insulin (5) CAD (coronary artery disease) Current Visit: No Status: Chronic Assessment and plan: Patient is s/p heart cath x 1 stent September, at [facility] Plan: Plavix ASA statin Qualifiers: Coronary Disease-Associated Artery/Lesion type: [place] artery [place] vs. transplanted heart: [place] heart Associated angina: without angina Qualified Code(s): I25.10 - Atherosclerotic heart disease of [place] coronary artery without angina pectoris (6) Elevated troponin Current Visit: No Status: Acute Assessment and plan: Troponin chronically elevated at baseline, likely demand ischemia due to CHF exacerbation (7) Factor V Leiden Current Visit: No Status: Chronic Assessment and plan: continue coumadin, INR 2.7 (8) HTN (hypertension) Current Visit: No Status: Chronic Assessment and plan: Continue home medication Qualifiers: Hypertension type: essential hypertension Qualified Code(s): I10 - Essential (primary) hypertension (9) DVT prophylaxis Current Visit: No Status: Acute Assessment and plan: Pt INR 2.7 - Time Spent With Patient 25 - 35 minutes (30 minutes including time with patient and coordinating care) - Subjective Interval history: Patient states that she is feeling better today compared to yesterday. States that she does continue to have increased work of breathing. Also, she had dyspnea on exertion with minimal activity. However, she denies feeling of anxiety associated with suffocation. She does admit to having an episode of palpitations in the middle of the night, which is uncommon for her. She has been urinating well. She is incontinent of urine and is using a diaper. Therefore it is difficult to measure urine output. She is scheduled to have urinary bladder botox injections next Thursday, November 10. Denies chest pain, pain with deep inspiration. - Constitutional Vitals: Temp Pulse Resp BP Pulse Ox 97.7 F 99 18 124/75 99 11/05/16 11:11 11/05/16 11:11 11/05/16 11:11 11/05/16 11:11 11/05/16 11:11 General appearance: Present: cooperative, A&O X 3, pleasant, obese, answers questions appropriately - Head Head exam: Present: atraumatic, normocephalic - Eye Eye exam: Present: conjuntiva pink, sclera anicteric Pupils: Present: PERRL - Neck Neck exam general surgery: Present: supple, trachea midline - Respiratory Respiratory exam: Present: CTAB. Absent: accessory muscle use, rales, rhonchi, wheezes - Cardiovascular Cardiovascular exam: Present: RRR, +S1, +S2. Absent: diastolic murmur, gallop, rubs, systolic murmur - GI/Abdominal GI/Abdominal exam: Present: normal bowel sounds, soft, no peritoneal signs. Absent: distended, tenderness - Extremities Exam Extremities exam: Present: warm, radial pulses palpable and symetrical. Absent : cyanotic, pedal edema - Neurological Exam Neurological exam: Present: CN II-XII intact, oriented X3, no focal deficits. Absent: pronater drift, facial droop, speech deficit - Skin Skin exam: Present: dry, intact Internal Medicine: Result - Labs CBC & Chem 7: 11/05/16 03:28 11/05/16 03:28 Labs: Short CBC 11/05/16 Range/Units 03:28 WBC 5.6 (4.3-11.1) K/mcL Hgb 11.4 L (11.5-15.4) g/dL Hct 34.5 L (35.3-44.9) % Plt Count 184 (140-400) K/mcL Neutrophils # 3.7 (1.6-8.9) K/mcL BMP 11/05/16 03:28 Sodium 142 Potassium 3.2 L Chloride 105 Carbon Dioxide 27 BUN 18 Creatinine 0.82 Glucose 103 H Calcium 9.2 Cardiac Enzymes 11/04/16 11/05/16 11/05/16 Range/Units 20:02 03:28 10:48 Troponin I 0.04 H* 0.05 H* 0.03 (0-0.03) ng/mL - ABG Interpretation ABG results: PT/INR, D-dimer PT 30.0 Seconds (9.4-12.1) H 11/05/16 03:28 Consult Discharge Plan - Plan Referrals: Adalberto Quijano MD [Primary Care Provider] - - Attending Attestation I examined this patient and my medical decision-making was reviewed with the COMPLIANCE VICE PRESIDENT/PA/Advanced Practice Nurse/Resident Physician. I agree with the documented findings, disposition and treatment plan as described except to the extent set forth below. <Rufus Almonte - Last Filed: 11/05/16 17:55> Date of Encounter: 11/05/16 - Constitutional Vitals: Temp Pulse Resp BP Pulse Ox 98.4 F 100 16 130/77 96 11/05/16 15:38 11/05/16 15:38 11/05/16 15:38 11/05/16 15:38 11/05/16 15:38 Internal Medicine: Result - Labs CBC & Chem 7: 11/05/16 03:28 11/05/16 03:28 Labs: Short CBC 11/05/16 Range/Units 03:28 WBC 5.6 (4.3-11.1) K/mcL Hgb 11.4 L (11.5-15.4) g/dL Hct 34.5 L (35.3-44.9) % Plt Count 184 (140-400) K/mcL Neutrophils # 3.7 (1.6-8.9) K/mcL BMP 11/05/16 03:28 Sodium 142 Potassium 3.2 L Chloride 105 Carbon Dioxide 27 BUN 18 Creatinine 0.82 Glucose 103 H Calcium 9.2 Cardiac Enzymes 11/04/16 11/05/16 11/05/16 Range/Units 20:02 03:28 10:48 Troponin I 0.04 H* 0.05 H* 0.03 (0-0.03) ng/mL - ABG Interpretation ABG results: PT/INR, D-dimer PT 30.0 Seconds (9.4-12.1) H 11/05/16 03:28 - Attending Attestation I examined this patient and my medical decision-making was reviewed with the COMPLIANCE VICE PRESIDENT/PA/Advanced Practice Nurse/Resident Physician. I agree with the documented findings, disposition and treatment plan as described except to the extent set forth below. CHF exacerbation, continue with lasix. Supplement potassium and monitor electrolytes and renal function tests tomorrow in am. Cardio input noted. D/W patient. Monitor coags.
[2016-11-05] MEDS ORDERED: *HR* Warfarin 3 MG TABLET PO SCH (18:00)
[2016-11-05] MEDS ORDERED: Warfarin perPT PO PRN (18:00)
[2016-11-05] MEDS ORDERED: Insulin DETEMIR 100 UNIT/ML X5UNITS SQ SCH (18:00)
[2016-11-05] MEDS: Furosemide 40 MG/4 ML VIAL IVP SCH (20:47)
[2016-11-05] MEDS: Insulin DETEMIR 100 UNIT/ML X5UNITS SQ SCH (20:47)
[2016-11-05] MEDS: Melatonin 3 MG TABLET PO SCH (20:48)
[2016-11-06 04:32] LABS: INR 2.7; Prothrombin Time 29.5 Seconds (9.4-12.1)
[2016-11-06 05:31] LABS: Basophils % 0.5 %; Eosinophils # 0.3 K/mcL (0.0-0.6); Eosinophils % 4.8 %; Hematocrit 38.1 % (35.3-44.9); Hemoglobin 12.1 g/dL (11.5-15.4); Immature Granulocytes % 1.7 % (0-4); Immature Platelets 3.7 % (1.1-6.1); Lymphocytes # 1.2 K/mcL (0.6-4.6); Lymphocytes % 20.8 %; Mean Corpuscular HGB Conc 31.8 g/dL (31.6-35.5); Mean Corpuscular Hemoglobin 25.8 pg (28.0-33.3); Mean Corpuscular Volume 81.2 fL (83.0-100.0); Mean Platelet Volume 10.5 fL (9.4-12.4); Monocytes # 0.4 K/mcL (0.0-1.3); Monocytes % 7.6 %; Neutrophils # 3.8 K/mcL (1.6-8.9); Platelet Count 200 K/mcL (140-400); Red Blood Count 4.69 M/mcL (3.82-4.97); Red Cell Distribution Width 14.6 % (11.5-14.5); Segmented Neutrophils % 64.6 %
[2016-11-06 06:21] LABS: BUN/Creatinine Ratio 18 (6-26); Blood Urea Nitrogen 15 mg/dL (7-20); Calcium 9.4 mg/dL (8.6-10.8); Carbon Dioxide 24 mEq/L (19-29); Chloride 105 mEq/L (98-109); Glucose 156 mg/dL (70-99); Magnesium 1.6 mg/dL (1.6-2.6); Osmolality,Calculated 294 (280-300); Sodium 140 mEq/L (136-145); eGFR For African Americans > 60 (> 60); eGFR For Non-African Americans > 60 (> 60)
[2016-11-06] MEDS: Furosemide 40 MG/4 ML VIAL IVP SCH (08:41)
[2016-11-06] MEDS: Ranolazine 500 MG TAB.ER.12H PO SCH (08:41)
[2016-11-06] MEDS: Isosorbide MONOnitrate (24 HR) 60 MG TAB.ER.24H PO SCH (08:43)
[2016-11-06] MEDS: Cholecalciferol (D-3) 1,000 UNIT TABLET PO SCH (08:43)
[2016-11-06] MEDS: Magnesium Oxide 400 MG TABLET PO SCH (08:43)
[2016-11-06] MEDS: Anastrozole 1 MG TABLET PO SCH (08:43)
[2016-11-06] MEDS: amLODIPine 5 MG TABLET PO SCH (08:44)
[2016-11-06] MEDS: Aspirin 81 MG TAB.CHEW PO SCH (08:44)
[2016-11-06] MEDS: Insulin LISPRO 300 UNITS/3 ML VIAL SQ SCH ×4 (08:47→12:16)
--- NOTE | 2016-11-06 11:11 | Cardiology Progress Note ---
<Amaury Espinal - Last Filed: 11/06/16 11:08> Date of Encounter: 11/06/16 Time of Encounter: 11:08 Assessment and Plan (1) Acute exacerbation of CHF (congestive heart failure) Current Visit: No Status: Acute Switch patient to PO lasix. Cardiology will sign off at this time. Follow-up appointment made with Dr. Hewitt in 1-2 weeks. Any further concerns please contact us. Qualifiers: Congestive heart failure type: diastolic Qualified Code(s): I50.33 - Acute on chronic diastolic (congestive) heart failure (2) Diastolic heart failure Current Visit: No Status: Chronic Noted from previous echo. Qualifiers: Heart failure chronicity: acute on chronic Qualified Code(s): I50.33 - Acute on chronic diastolic (congestive) heart failure (3) Atrial fibrillation Current Visit: No Status: Chronic Paraoxysmal. On Warfarin. INR 2.7 Qualifiers: Atrial fibrillation type: paroxysmal Qualified Code(s): I48.0 - Paroxysmal atrial fibrillation (4) Diabetes Current Visit: No Status: Acute 1 Accu-Cheks before meals and at bedtime-continue with basal as well as correctional and sliding scale maintain postprandial less than 180 2 diabetic diet Qualifiers: Diabetes mellitus type: type 1 Diabetes mellitus complication status: without complication Qualified Code(s): E10.9 - Type 1 diabetes mellitus without complications (5) HTN (hypertension) Current Visit: No Status: Chronic Qualifiers: Hypertension type: essential hypertension Qualified Code(s): I10 - Essential (primary) hypertension (6) CAD (coronary artery disease) Current Visit: No Status: Chronic 1 patient has hx stent placement will continue with aspirin Isorbid Renexa statin- presently chest pain-free nitroglycerin as needed for chest pain oxygen as needed Qualifiers: Coronary Disease-Associated Artery/Lesion type: [place] artery [place] vs. transplanted heart: [place] heart Associated angina: without angina Qualified Code(s): I25.10 - Atherosclerotic heart disease of [place] coronary artery without angina pectoris (7) COPD (chronic obstructive pulmonary disease) Current Visit: No Status: Chronic Qualifiers: COPD type: unspecified COPD Qualified Code(s): J44.9 - Chronic obstructive pulmonary disease, unspecified (8) Factor V Leiden Current Visit: No Status: Chronic 1 history of factor V Leiden will continue with Coumadin will check INR daily INR goal 2- 3.0 Discussion w patient/family: The assessment and plan as outlined above was discussed with the patient and/or family members who expressed understanding and agreement. All questions were answered. Thank you for involving us in the care of your patient. Please call with any questions. Subjective Principal diagnosis: Acute decompensation of CHF Interval history: Patient feeling much better this AM. Her breathing has improved. She continues to urinate without difficulty. Patient has no further complaints. Objective Vital Signs, Last 4 Hours Temp Pulse Resp BP Pulse Ox 11/06/16 08:56 97 11/06/16 08:53 100 11/06/16 07:35 98.3 F 105 18 134/71 100 General: Conversant, No Apparent Distress HEENT: Atraumatic, Normocephaly, Mucus Membranes Moist Neck: No JVD, Normal carotid pulses Cardiac: Reg Rate and Rhythm, Normal S1 and S2, No Murmur Lungs: Normal Breath Sounds, No Wheeze, Rales, Rhonchi Neuro: Alert and responsive, No focal deficits noted Abdomen: Soft, Non-Tender Skin: No rashes noted on visualized skin Musculoskeletal: No Chest Wall Tenderness Extremities: No Clubbing, No Cyanosis, No Edema, Normal Pulses Results 11/06/16 03:17 11/06/16 03:17 Lab Results 11/05/16 11/06/16 11/06/16 10:48 03:17 03:17 WBC 5.8 Hgb 12.1 Hct 38.1 Plt Count 200 INR 2.7 Sodium Potassium Chloride Carbon Dioxide BUN Creatinine Glucose Calcium Magnesium Troponin I 0.03 11/06/16 03:17 WBC Hgb Hct Plt Count INR Sodium 140 Potassium 4.0 Chloride 105 Carbon Dioxide 24 BUN 15 Creatinine 0.82 Glucose 156 H Calcium 9.4 Magnesium 1.6 Troponin I Consult Discharge Plan - Plan Referrals: Adalberto Quijano MD [Primary Care Provider] - 11/14/16 9:45 am (Requested on 11-06) - Attending Attestation I examined this patient and my medical decision-making was reviewed with the Resident Physician. I agree with the documented findings, disposition and treatment plan as described except to the extent set forth below. <Yosi Coronado G - Last Filed: 11/06/16 11:52> Date of Encounter: 11/06/16 Assessment and Plan Discussion w patient/family: The assessment and plan as outlined above was discussed with the patient and/or family members who expressed understanding and agreement. All questions were answered. Thank you for involving us in the care of your patient. Please call with any questions. Objective Vital Signs, Last 4 Hours Pulse Ox 11/06/16 08:56 97 11/06/16 08:53 100 Results 11/06/16 03:17 11/06/16 03:17 Lab Results 11/05/16 11/06/16 11/06/16 10:48 03:17 03:17 WBC 5.8 Hgb 12.1 Hct 38.1 Plt Count 200 INR 2.7 Sodium Potassium Chloride Carbon Dioxide BUN Creatinine Glucose Calcium Magnesium Troponin I 0.03 11/06/16 03:17 WBC Hgb Hct Plt Count INR Sodium 140 Potassium 4.0 Chloride 105 Carbon Dioxide 24 BUN 15 Creatinine 0.82 Glucose 156 H Calcium 9.4 Magnesium 1.6 Troponin I Attestation Statement - Attestation Attestation: I examined this patient and my medical decision-making was reviewed with the FAMILY PRACTICE MEDICAL DOCTOR/PA/Advanced Practice Nurse/Resident Physician. I agree with the documented findings, disposition and treatment plan as described except to the extent set forth below. pt is less sob, able to lie flat , VSS JVD: 6-7 m Chest Clear CVS: n o s3 switch to po lasix PT OT Cardiology will sign off. cont with rate control with aflutter and anticoagulation
[2016-11-06 11:52] VITALS: BP 103/74
--- NOTE | 2016-11-06 13:56 | Discharge Summary ---
<AdalbertoRyliemurray Marcos - Last Filed: 11/06/16 14:38> Date of Encounter: 11/06/16 Time of Encounter: 13:51 - Discharge Diagnosis (1) Acute exacerbation of CHF (congestive heart failure) Priority: Primary Status: Resolved Qualifiers: Congestive heart failure type: combined Qualified Code(s): I50.43 - Acute on chronic combined systolic (congestive) and diastolic (congestive) heart failure (2) Combined systolic and diastolic congestive heart failure Priority: Secondary Status: Chronic Qualifiers: Congestive heart failure chronicity: acute on chronic Qualified Code(s): I50.43 - Acute on chronic combined systolic (congestive) and diastolic ( congestive) heart failure (3) Atrial fibrillation Priority: Secondary Status: Chronic Qualifiers: Atrial fibrillation type: paroxysmal Qualified Code(s): I48.0 - Paroxysmal atrial fibrillation (4) Diabetes mellitus Priority: Secondary Status: Chronic Qualifiers: Diabetes mellitus type: type 2 Diabetes mellitus complication status: with unspecified complications Diabetes mellitus alf insulin use: with terminal gauger use Qualified Code(s): E11.8 - Type 2 diabetes mellitus with unspecified complications; Z79.4 - terminal gauger (current) use of insulin (5) CAD (coronary artery disease) Priority: Secondary Status: Chronic Qualifiers: Coronary Disease-Associated Artery/Lesion type: [place] artery [place] vs. transplanted heart: [place] heart Associated angina: without angina Qualified Code(s): I25.10 - Atherosclerotic heart disease of [place] coronary artery without angina pectoris (6) Elevated troponin Priority: Secondary Status: Acute (7) Factor V Leiden Priority: Secondary Status: Chronic (8) HTN (hypertension) Priority: Secondary Status: Chronic Qualifiers: Hypertension type: essential hypertension Qualified Code(s): I10 - Essential (primary) hypertension (9) DVT prophylaxis Priority: Secondary Status: Acute - Discharge Medications Prescriptions: Furosemide [Lasix] 60 mg PO BID #60 tab Home Medications: Escitalopram [Lexapro] 20 mg PO QAM 05/16/15 [History] Rosuvastatin [Crestor] 40 mg PO QPM 05/16/15 [History] Ranolazine [Ranexa] 1,000 mg PO BID #60 tab.er.12h 08/01/15 [Rx] Warfarin [Coumadin] 1.5 mg PO SUTUSA 01/15/16 [History] Aspirin 81 mg PO DAILY tab.chew 02/05/16 [Rx] Insulin Glargine,Hum.rec.anlog [Lantus Solostar] 20 unit SQ QPM 07/06/16 [ History] Insulin LISPRO [Humalog] 10 unit SQ TIDWM MDD Sliding 07/06/16 [History] Losartan Potassium [Cozaar] 50 mg PO DAILY 07/06/16 [History] Warfarin [Coumadin] 3 mg PO MOWETHFR 07/06/16 [History] Nitroglycerin 0.4 mg SL Q5MIN PRN #0 tab.subl 07/10/16 [Rx] Oxygen 2 l NS HS 08/07/16 [History] Clopidogrel [Plavix] 75 mg PO DAILY #30 tablet 08/15/16 [Rx] Pantoprazole Sodium [Protonix] 40 mg PO DAILY #30 tablet.dr 08/15/16 [Rx] Sucralfate [Carafate] 1 gm PO TID #90 udc 08/15/16 [Rx] Melatonin 10 mg PO HS 09/19/16 [History] Potassium Chloride [K-Tab ER] 20 meq PO DAILY #30 tablet.er 10/30/16 [Rx] Albuterol Sulfate [Ventolin Hfa] 2 puff IH Q4H PRN 11/04/16 [History] Amlodipine [Norvasc] 5 mg PO DAILY 11/04/16 [History] Anastrozole [Arimidex] 1 mg PO DAILY 11/04/16 [History] Carvedilol 12.5 mg PO BID 11/04/16 [History] Cholecalciferol (D-3) [Vitamin D] 1,000 unit PO DAILY 11/04/16 [History] Furosemide [Lasix] 40 mg PO DAILY 11/04/16 [History] Isosorbide MONOnitrate [Isosorbide Mononitrate ER] 120 mg PO DAILY 11/04/16 [ History] Furosemide [Lasix] 60 mg PO BID #60 tab 11/06/16 [Rx] Allergies/Adverse Reactions: Allergies phenylbutazone [From Butazolidin] Allergy (Verified 09/07/16 13:54) Rash amitriptyline [From Elavil] Adverse Reaction (Verified 09/07/16 13:54) Headache codeine Adverse Reaction (Verified 09/07/16 13:54) Headache desipramine Adverse Reaction (Verified 09/07/16 13:54) Headache lisinopril Adverse Reaction (Verified 09/07/16 13:54) Cough meperidine [From Demerol] Adverse Reaction (Verified 09/07/16 13:54) Headache nalbuphine Adverse Reaction (Verified 09/07/16 13:54) Headache Nortriptyline Adverse Reaction (Verified 09/07/16 13:54) Headache tiagabine Adverse Reaction (Verified 09/07/16 13:54) Headache Procedures/tests Complete & Pending: Procedures Performed prior 72 hours Category Date Time Status ECG 12 lead ECG [ECG] Stat Y 11/05/16 10:54 Ordered EV echocardiogram Routine Y 11/05/16 18:53 Completed Date of admission: 11/04/16 18:52 Primary care physician: Adalberto Quijano MD Consults: 11/05/16 11:39 Consult to Occupational Therapy [CONS] Routine Comment: Evaluate, develop and implement POC Consult to Physical Therapy [CONS] Routine Comment: Evaluate, develop and implement POC 11/05/16 11:40 Consult to Freight Clerk [CONS] Routine Reason for SW Consult: Patient may need home services upon d/c Discharging clinician: Rufus Almonte Anticipated date of discharge: 11/06/16 - Patient Status Disposition: Home, Self-Care Condition: Good Functional capacity at discharge: independent ambulation Overall status at discharge: patient is progressing back to baseline - Discharge Instructions Instructions: Heart Failure (DC) Follow Up With: Adalberto Quijano MD [Primary Care Provider] - 11/14/16 9:45 am (Requested on 11-06) - Diet and Activity Activity: increase activity as tolerated Diet: low salt diet Hospital course: Ms. Fischer is a 71 year old female who presented to hospital from Dr. Joseph's cardiology office for increasing dyspnea and fluid retention. Patient had been taking Lasix 60mg BID prior to a heart cath x1 stent in September,. She stated that after the heart cath, she was discharged without Lasix. She noticed a 10 pound weight gain over the last month. Patient restarted Lasix and was taking 40mg BID. However, she stated that she continued to "fill up with fluid". BNP was 451 on admission. Troponin was at baseline elevation. Patient required 3L O2 to maintain appropriate O2 saturation. XCR demonstrated cardiomegaly, pulmonary vascular congestion, without infiltrates or pneumothorax. She was admitted for diuresis. Patient has tolerated diuresis well and reports that dyspnea has improved. Patient is ambulating the hallways at this time without supplemental O2. She will be discharged to home with close follow up with her family doctor and assembler installer structures. She will have outpatient BNP done prior to her appointment with family doctor on November 14, 2016. - Time Spent with Patient Total time spent providing and/or coordinating discharge services: Greater than 30 minutes (30 minutes including time with patient and coordinating care) - Constitutional Vitals: Temp Pulse Resp BP Pulse Ox 97.4 F L 118 17 103/74 100 11/06/16 11:51 11/06/16 11:51 11/06/16 11:51 11/06/16 11:51 11/06/16 11:51 General appearance: Present: cooperative, A&O X 3, pleasant, obese, answers questions appropriately - Head Head exam: Present: atraumatic, normocephalic - Eye Eye exam: Present: PERRL, conjuntiva pink, sclera anicteric Pupils: Present: PERRL - Neck Neck exam general surgery: Present: supple, trachea midline. Absent: lymphadenopathy, thyromegaly - Respiratory Respiratory exam: Present: CTAB. Absent: accessory muscle use, rales, rhonchi, wheezes - Cardiovascular Cardiovascular exam: Present: irregular rhythm, +S1, +S2. Absent: diastolic murmur, gallop, rubs, systolic murmur - GI/Abdominal GI/Abdominal exam: Present: normal bowel sounds, soft (obese), no peritoneal signs. Absent: distended, tenderness - Extremities Exam Extremities exam: Present: warm, radial pulses palpable and symetrical. Absent : calf tenderness, cyanotic, pedal edema - Neurological Exam Neurological exam: Present: CN II-XII intact, oriented X3, no focal deficits. Absent: pronater drift, facial droop, speech deficit - Skin Skin exam: Present: dry, intact - Attending Attestation I examined this patient and my medical decision-making was reviewed with the LEGAL COUNSEL/PA/Advanced Practice Nurse/Resident Physician. I agree with the documented findings, disposition and treatment plan as described except to the extent set forth below. <Rufus Almonte - Last Filed: 11/06/16 16:19> Date of Encounter: 11/06/16 Procedures/tests Complete & Pending: Procedures Performed prior 72 hours Category Date Time Status ECG 12 lead ECG [ECG] Stat Y 11/05/16 10:54 Ordered EV echocardiogram Routine Y 11/05/16 18:53 Completed Date of admission: 11/04/16 18:52 Primary care physician: Adalberto Quijano MD Consults: 11/05/16 11:39 Consult to Occupational Therapy [CONS] Routine Comment: Evaluate, develop and implement POC Consult to Physical Therapy [CONS] Routine Comment: Evaluate, develop and implement POC 11/05/16 11:40 Consult to Freight Clerk [CONS] Routine Reason for SW Consult: Patient may need home services upon d/c Hospital course: Ms. Fischer is a 71 year old female - Time Spent with Patient Total time spent providing and/or coordinating discharge services: - Constitutional Vitals: Temp Pulse Resp BP Pulse Ox 97.4 F L 118 17 103/74 100 11/06/16 11:51 11/06/16 11:51 11/06/16 11:51 11/06/16 11:51 11/06/16 11:51 - Attending Attestation I examined this patient and my medical decision-making was reviewed with the LEGAL COUNSEL/PA/Advanced Practice Nurse/Resident Physician. I agree with the documented findings, disposition and treatment plan as described except to the extent set forth below. CHF exacerbation, responded well to therapy. D/C home today. Resume home meds. Follow up with pcp and cardio as outpatient.
[2016-11-06] MEDS ORDERED: Furosemide 40 MG TABLET PO SCH (17:00)
--- NOTE | 2016-11-07 06:25 | Electrocardiograph Report ---
[place] [id number] Test Date: 2016-11-05 Pat Name: Miriam Fischer Department: 112 Room: 2A26 Gender: F Carpenter Mate: : 1945 Requested By: Amaury Espinal Order Number: [id number] Reading MD: Harsh Bobby MD Measurements Intervals [place] Rate: 95 P: DC: 0 QRS: -36 QRSD: 112 T: 31 QT: 395 QTc: 448 Interpretive Statements ATRIAL FIBRILLATION WITH CONTROLLED RESPONSE MARKED LEFT AXIS DEVIATION POOR R WAVE PROGRESSION Electronically Signed On 11-07-2016 6:23:01 EST by Harsh Bobby MD
--- NOTE | 2016-11-07 06:56 | Electrocardiograph Report ---
[place] [id number] Test Date: 2016-11-04 Pat Name: Miriam Fischer Department: 103 Room: 2A26 Gender: F Tear Down Man: : 1945 Requested By: Ted Walton Order Number: [id number] Reading MD: Harsh Bobby MD Measurements Intervals [place] Rate: 49 P: -1 OK: 213 QRS: -12 QRSD: 99 T: 57 QT: 445 QTc: 416 Interpretive Statements SINUS BRADYCARDIA WITH FIRST DEGREE AV BLOCK WITH FREQUENT SUPRAVENTRICULAR PREMATURE COMPLEXES IN A BIGEMINAL PATTERN POOR R WAVE PROGRESSION Electronically Signed On 11-07-2016 6:54:26 EST by Harsh Bobby MD
== END 2016-11-06 15:43 | disposition home or self-care (01) | DRG 291 ==
LOC: 2ANU 13:53 → EMEROO 13:53 → 2ANU 18:18 → SUATTDRO 18:52
PROVIDERS: ADMIT Nurse Practitioner Acute Care; ATTEND Internal Medicine

== ENCOUNTER 2017-01-05 13:42 | Inpatient (IN) ==
[2017-01-05] MEDS ORDERED: Aspirin 81 MG TAB.CHEW PO STA (14:28)
--- NOTE | 2017-01-05 14:28 | Emergency Department Note ---
Disposition Clinical Impression: NSTEMI (non-ST elevated myocardial infarction) Disposition: Admitted As Inpatient Condition: Good Time of Disposition: 15:57 General Adult HPI - General Chief complaint: ED Chest Pain Stated complaint: SOB. Chest Pain Time Seen by Provider: 01/05/17 14:19 Source: patient Limitations: no limitations Nursing Notes Reviewed: Yes Vital Signs Reviewed: Yes - History of Present Illness HPI Narrative: Patient complaint of a two-day history of chest pain. She states she had an episode that was relieved yesterday with nitroglycerin. She states today her chest pain came back and is now radiating up to her right jaw. She states she does have a recent history of stent placement in September. Also complaining of a 5 pound weight gain in the past 2 days. Does have history of CHF. She is Short of breath with her chest pain. Pain Scale: 0 - Related Data Home Medications Medication Instructions Recorded Confirmed Escitalopram [Lexapro] 20 mg PO QAM 05/16/15 11/04/16 Rosuvastatin [Crestor] 40 mg PO QPM 05/16/15 11/04/16 Warfarin [Coumadin] 1.5 mg PO SUTUSA 01/15/16 11/04/16 Insulin Glargine,Hum.rec.anlog 20 unit SQ QPM 07/06/16 11/04/16 [Lantus Solostar] Insulin LISPRO [Humalog] 10 unit SQ TIDWM MDD Sliding 07/06/16 11/04/16 Losartan Potassium [Cozaar] 50 mg PO DAILY 07/06/16 11/04/16 Warfarin [Coumadin] 3 mg PO MOWETHFR 07/06/16 11/04/16 Oxygen 2 l NS HS 08/07/16 11/04/16 Melatonin 10 mg PO HS 09/19/16 11/04/16 Albuterol Sulfate [Ventolin Hfa] 2 puff IH Q4H PRN 11/04/16 11/04/16 Amlodipine [Norvasc] 5 mg PO DAILY 11/04/16 11/04/16 Anastrozole [Arimidex] 1 mg PO DAILY 11/04/16 11/04/16 Carvedilol 12.5 mg PO BID 11/04/16 11/04/16 Cholecalciferol (D-3) [Vitamin D] 1,000 unit PO DAILY 11/04/16 11/04/16 Furosemide [Lasix] 40 mg PO DAILY 11/04/16 11/04/16 Isosorbide MONOnitrate [Isosorbide 120 mg PO DAILY 11/04/16 11/04/16 Mononitrate ER] Previous Rx's Medication Instructions Recorded Ranolazine [Ranexa] 1,000 mg PO BID #60 tab.er.12h 08/01/15 Aspirin 81 mg PO DAILY tab.chew 02/05/16 Nitroglycerin 0.4 mg SL Q5MIN PRN #0 tab.subl 07/10/16 Clopidogrel [Plavix] 75 mg PO DAILY #30 tablet 08/15/16 Pantoprazole Sodium [Protonix] 40 mg PO DAILY #30 tablet.dr 08/15/16 Sucralfate [Carafate] 1 gm PO TID #90 udc 08/15/16 Potassium Chloride [K-Tab ER] 20 meq PO DAILY #30 tablet.er 10/30/16 Furosemide [Lasix] 60 mg PO BID #60 tab 11/06/16 Allergies Allergy/AdvReac Type Severity Reaction Status Date / Time phenylbutazone Allergy Rash Verified 09/07/16 13:54 [From Butazolidin] amitriptyline [From Elavil] AdvReac Headache Verified 09/07/16 13:54 codeine AdvReac Headache Verified 09/07/16 13:54 desipramine AdvReac Headache Verified 09/07/16 13:54 lisinopril AdvReac Cough Verified 09/07/16 13:54 meperidine [From Demerol] AdvReac Headache Verified 09/07/16 13:54 nalbuphine AdvReac Headache Verified 09/07/16 13:54 Nortriptyline AdvReac Headache Verified 09/07/16 13:54 tiagabine AdvReac Headache Verified 09/07/16 13:54 All systems ED: reviewed and negative except as stated. Constitutional: Denies: fever, chills Cardiovascular: Reports: chest pain (Radiates to her right jaw.). Denies: palpitations, syncope Respiratory: Reports: dyspnea (Associate with the chest pain.). Denies: cough, wheezes Gastrointestinal: Denies: abdominal pain, nausea, vomiting, diarrhea, hematemesis, melena, hematochezia Genitourinary: Denies: urgency, dysuria, frequency, hematuria Musculoskeletal: Denies: back pain, neck pain Integumentary: Denies: rash Neurological: Denies: headache, weakness Past Medical History - Past Medical History Medical history: Reports: arthritis, atrial fibrillation, cancer, CHF, coronary artery disease, CVA, DVT, diabetes, GERD, hyperlipidemia, hypertension, myocardial infarction, osteoporosis, peripheral artery disease, renal disease, TIA, valvular heart disease, other Surgical history: Reports: angioplasty/stent, breast surgery, carotid endarterectomy, cholecystectomy, orthopedic, other, other Psychiatric history: Reports: anxiety, depression CRUISE GUIDE history: Reports: no CRUISE GUIDE history - Social History Smoking Status: Never smoker Smokeless Tobacco Status: No Alcohol use: Reports: rarely Drug use: Reports: none Physical Exam - General Limitations: no limitations General appearance: alert, in distress (Appears in pain.) - Head Head exam: atraumatic, normocephalic - Eye Eye exam: Present: normal appearance, PERRL, EOMI. Absent: scleral icterus - ENT ENT exam: normal exam, normal oropharynx, mucous membranes moist - Neck Neck exam: Present: normal inspection, full ROM, trachea midline. Absent: meningismus - Chest Chest inspection: Present: normal inspection, symmetric chest wall rise - Respiratory Respiratory exam: Present: normal lung sounds bilaterally. Absent: respiratory distress - Cardiovascular Cardiovascular exam: Present: regular rate, normal rhythm, normal heart sounds - Abdominal Exam Abdominal exam: Present: soft, Non-Tender, normal bowel sounds - Extremities Exam Extremities exam: Present: normal inspection, full ROM, normal capillary refill. Absent: tenderness, pedal edema - Back Exam Back exam: Present: normal inspection, full ROM. Absent: tenderness, CVA tenderness (R), CVA tenderness (L) - Neurological Exam Neurological exam: Present: alert, oriented X3 - Psychiatric Psychiatric exam: Present: normal affect, normal mood - Skin Skin exam: Present: warm, dry, intact, normal color. Absent: rash, cyanosis, diaphoresis Course Course Narrative: Female patient presenting to the emergency department complaining of chest pain and shortness of breath. She does appear in some mild pain distress. Her pain started last night but was relieved with nitroglycerin. She states it started again today. So she came to the emergency department. She is also complaining of a 5 pound weight gain that this started since yesterday. His CHF. She states that she is short of breath with the chest pain and is radiating to her right jaw. She does take a 1 mg of baby aspirin a day as well as Coumadin. Patient denies any nausea vomiting. She denies any abdominal pain. We will do a cardiac workup on patient. - Reevaluation(s) Reevaluation #1: Patient reassessed. She states that she is still having the chest pain. It is still radiating to her right jaw. She stated has eased some but is stating that she does not want any more pain medication. She says it makes her feel funny in her head and she is refusing that at this time. We have made aware patient that she will be admitted to the hospital she is agreeable to this plan. She is also brought up the fact that she has a tachybradycardia syndrome that she has been told she must possibly need a pacemaker 4. Time: 15:18 - Consultations Consultation #1: Dr. Jean accepted patient in stable condition. Time: 15:23 Vital Signs Temperature 98.3 F 01/05/17 13:57 Pulse Rate 57 01/05/17 13:57 Respiratory Rate 22 01/05/17 13:57 Blood Pressure 107/58 01/05/17 13:57 O2 Sat by Pulse Oximetry 98 01/05/17 13:57 Temperature 98.3 F 01/05/17 13:57 Pulse Rate 57 01/05/17 15:18 Respiratory Rate 18 01/05/17 15:18 Blood Pressure 131/64 01/05/17 15:18 O2 Sat by Pulse Oximetry 99 01/05/17 15:18 Oxygen Delivery Oxygen Delivery Room Air Medical Decision Making - Medical Records Medical records reviewed: Yes I reviewed the patient's medical records. - Lab Data Lab results reviewed: Yes I reviewed the patient's lab results. Result diagrams: 01/05/17 14:34 01/05/17 14:34 Lab Results 01/05/17 01/05/17 01/05/17 Range/Units 14:34 14:34 14:34 WBC 5.4 (4.3-11.1) K/mcL RBC 4.98 H (3.82-4.97) M/mcL Hgb 12.7 (11.5-15.4) g/dL Hct 38.7 (35.3-44.9) % MCV 77.7 L (83.0-100.0) fL MCH 25.5 L (28.0-33.3) pg MCHC 32.8 (31.6-35.5) g/dL RDW 15.0 H (11.5-14.5) % Plt Count 175 (140-400) K/mcL MPV 10.6 (9.4-12.4) fL Immature Gran % 0.7 (0-4) % Seg Neutrophils % 66.6 % Lymphocytes % 21.0 % Monocytes % 8.3 % Eosinophils % 3.0 % Basophils % 0.4 % Neutrophils # 3.6 (1.6-8.9) K/mcL Lymphocytes # 1.1 (0.6-4.6) K/mcL Monocytes # 0.5 (0.0-1.3) K/mcL Eosinophils # 0.2 (0.0-0.6) K/mcL Basophils # 0.0 (0.0-0.2) K/mcL PT 36.4 H (9.4-12.1) Seconds INR 3.3 APTT 36.7 H (26.0-36.0) Seconds D-Dimer 339 (0-500) ng/mLFEU Sodium (136-145) mEq/L Potassium (3.5-4.5) mEq/L Chloride (98-109) mEq/L Carbon Dioxide (19-29) mEq/L BUN (7-20) mg/dL Creatinine (0.57-1.11) mg/dL Est GFR ( Amer) (> 60) Est GFR (Non-Af Amer) (> 60) BUN/Creatinine Ratio (6-26) Glucose (70-99) mg/dL Calculated Osmolality (280-300) Calcium (8.6-10.8) mg/dL Troponin I (0-0.03) ng/mL B-Natriuretic Peptide 206 H (0-100) pg/mL 01/05/17 01/05/17 Range/Units 14:34 14:34 WBC (4.3-11.1) K/mcL RBC (3.82-4.97) M/mcL Hgb (11.5-15.4) g/dL Hct (35.3-44.9) % MCV (83.0-100.0) fL MCH (28.0-33.3) pg MCHC (31.6-35.5) g/dL RDW (11.5-14.5) % Plt Count (140-400) K/mcL MPV (9.4-12.4) fL Immature Gran % (0-4) % Seg Neutrophils % % Lymphocytes % % Monocytes % % Eosinophils % % Basophils % % Neutrophils # (1.6-8.9) K/mcL Lymphocytes # (0.6-4.6) K/mcL Monocytes # (0.0-1.3) K/mcL Eosinophils # (0.0-0.6) K/mcL Basophils # (0.0-0.2) K/mcL PT (9.4-12.1) Seconds INR APTT (26.0-36.0) Seconds D-Dimer (0-500) ng/mLFEU Sodium 142 (136-145) mEq/L Potassium 2.9 L (3.5-4.5) mEq/L Chloride 102 (98-109) mEq/L Carbon Dioxide 31 H (19-29) mEq/L BUN 57 H (7-20) mg/dL Creatinine 1.22 H (0.57-1.11) mg/dL Est GFR ( Amer) 53 L (> 60) Est GFR (Non-Af Amer) 44 L (> 60) BUN/Creatinine Ratio 47 H (6-26) Glucose 112 H (70-99) mg/dL Calculated Osmolality 311 H (280-300) Calcium 9.3 (8.6-10.8) mg/dL Troponin I 0.05 H* (0-0.03) ng/mL B-Natriuretic Peptide (0-100) pg/mL - Radiology Data Radiology results reviewed: Yes I reviewed the patient's radiology results. Chest X-Ray 01/05/17 14:01 IMPRESSION: No acute cardiopulmonary disease. D/ / Saravanan Monte MD / Saravanan Monte MD Interpreting Provider: Saravanan Monte MD - EKG Data EKG #1 EKG attestation: Yes I reviewed and interpreted this EKG. EKG results narrative: Sinus bradycardia at a rate of 57. First-degree AV block. AL interval is 223. QRS duration is 98. QT is 455. QTC is 448. No ST elevation or depression noted. No significant changes from previous EKG dated 11/05/2016. Heart Score - Score History: Highly Suspicious EKG: Non Specific repolarisation Disturbance Age: Greater than 65 Risk Factors: Equal/Greater than 3 risk factor or history of atherosclerotic disease Troponin: 1-3x normal limit HEART Score Total: 8
[2017-01-05] MEDS ORDERED: *HR* Morphine 2 MG/ML SYRINGE IVP ONE (14:34)
[2017-01-05 14:44] LABS: Basophils % 0.4 %; Eosinophils # 0.2 K/mcL (0.0-0.6); Hematocrit 38.7 % (35.3-44.9); Hemoglobin 12.7 g/dL (11.5-15.4); Immature Granulocytes % 0.7 % (0-4); Lymphocytes # 1.1 K/mcL (0.6-4.6); Mean Corpuscular HGB Conc 32.8 g/dL (31.6-35.5); Mean Corpuscular Hemoglobin 25.5 pg (28.0-33.3); Mean Corpuscular Volume 77.7 fL (83.0-100.0); Mean Platelet Volume 10.6 fL (9.4-12.4); Monocytes # 0.5 K/mcL (0.0-1.3); Monocytes % 8.3 %; Neutrophils # 3.6 K/mcL (1.6-8.9); Platelet Count 175 K/mcL (140-400); Red Blood Count 4.98 M/mcL (3.82-4.97); Segmented Neutrophils % 66.6 %
[2017-01-05 14:58] LABS: Calcium 9.3 mg/dL (8.6-10.8); Potassium 2.9 mEq/L (3.5-4.5)
[2017-01-05 14:59] LABS: INR 3.3; Prothrombin Time 36.4 Seconds (9.4-12.1)
[2017-01-05 15:02] LABS: Activated Partial Thrombo Time 36.7 Seconds (26.0-36.0)
--- NOTE | 2017-01-05 16:50 | Emergency Department Note ---
START Narrative - START START: I examined this patient and my medical decision-making was reviewed with the OFFICE TECHNICIAN/PA/Advanced Practice Nurse/Resident Physician. I agree with the documented findings, disposition and treatment plan as described except to the extent set forth below. ED attending note: Patient seen with emergency medicine resident Dr. Cadet. Please see a copy of his note for details of the H&P, evaluation, management and disposition of this patient. We independently had [id number] contact with the patient Briefly: 71-year-old female history of cardiac stents presents with chest pain and pressure. EKG shows nonspecific changes negative troponin patient be admitted for chest pain rule out acute coronary syndrome. Provided 40 minutes critical care service with this patient patient received aspirin in the ED. Patient accepted for admission
[2017-01-05] MEDS ORDERED: Nitroglycerin 0.4 MG TAB.SUBL SL ONE (18:30)
[2017-01-05] MEDS: Nitroglycerin 0.4 MG TAB.SUBL SL PRN ×3 (18:33→18:47)
[2017-01-05] MEDS ORDERED: Nitroglycerin 0.4 MG TAB.SUBL SL PRN (18:38)
[2017-01-05] MEDS ORDERED: Nitroglycerin 25 MG/250 ML INFUS..BTL IVC SCH (18:45)
[2017-01-05] MEDS ORDERED: Naloxone 0.4 MG/ML INJ IVP PRN (18:49)
[2017-01-05] MEDS ORDERED: Acetaminophen 325 MG TABLET PO PRN (18:49)
--- NOTE | 2017-01-05 18:53 | Internal Med History&Physical ---
Date of Encounter: 01/05/17 Time of Encounter: 18:53 Assessment and Plan (1) Acute coronary syndrome Current visit: Yes Status: Acute Pt is status post stent to LAD in the past and stent to RCA in September 2016 - presents with chest pain at rest. Patient is on aspirin and Plavix and he is on warfarin. Does not need further anticoagulation at this time. Patient has persistent chest pain and hence started on nitroglycerin infusion. Cardiac monitoring, trend troponins, cardiac consultation. (2) CHF (congestive heart failure) Current visit: Yes Status: Chronic stable. Monitor. No evidence of overt pulmonary edema noted Qualifiers: Congestive heart failure type: diastolic Congestive heart failure chronicity: chronic Qualified Code(s): I50.32 - Chronic diastolic (congestive ) heart failure (3) Diabetes Current visit: Yes Status: Chronic Started on sliding scale insulin Qualifiers: Diabetes mellitus type: type 2 Diabetes mellitus complication status: with hyperglycemia Diabetes mellitus terminal operator insulin use: with terminal operator use Qualified Code(s): E11.65 - Type 2 diabetes mellitus with hyperglycemia (4) Factor V Leiden Current visit: Yes Status: Chronic Patient is on warfarin - continue (5) CAD (coronary artery disease) Current visit: Yes Status: Chronic H/O status post stent to LAD in the past and stent to RCA in September 2016 - continue home medications Qualifiers: Coronary Disease-Associated Artery/Lesion type: [place] artery [place] vs. transplanted heart: [place] heart Associated angina: without angina Qualified Code(s): I25.10 - Atherosclerotic heart disease of [place] coronary artery without angina pectoris (6) Hypokalemia Current visit: Yes Status: Acute Replenish potassium (7) CKD (chronic kidney disease) stage 3, GFR 30-59 ml/min Current visit: Yes Status: Chronic Supportive care. avoid nephrotoxics (8) Chronic anticoagulation Current visit: Yes Status: Chronic Pt has h/o factor V leiden. INR is therapeutic. Internal Medicine - H&P: HPI Chief complaint: chest pain Admitted From: Emergency Dept Plans for Post Hospital Care: Home History of present illness: Ms. Fischer is a 71 year old female with past medical history significant for coronary disease - status post stent to LAD in the past and stent to RCA in September 2016 diabetes mellitus on insulin, hypertension, CVA 2, factor 5 Leiden , portal vein thrombosis, CK 80, GERD, sleep apnea. She apparently had done midsternal chest pain yesterday, which was relieved with the nitroglycerin. She noticed chest pain began this morning, which felt like an ache with radiation to the jaws and left upper extremity. She continued to have intermittent chest pains, and felt like she had difficulty breathing. She presented to her primary care physicians office, who referred her to the emergency department. She was evaluated in the emergency department and was noted to have troponin of 0.05. She was given aspirin and nitroglycerin. She is admitted to hospitalist service for further management. At my evaluation, She reports midsternal chest pressure, 6/10, with radiation to the left upper extremity. Denies palpitations. Reports sensation of shortness of breath. She denies cough, expectoration, fever, chills, nausea, vomiting, abdominal pain, dysuria, hematuria, bowel problems. She reports 5 pound weight gain in the last 3 days Past Med Surg Social Fam HX - Past Medical History Medical history: arthritis, atrial fibrillation, cancer, CHF, coronary artery disease, CVA, DVT, diabetes, GERD, hyperlipidemia, hypertension, myocardial infarction, osteoporosis, peripheral artery disease, renal disease, TIA, valvular heart disease, other Psychiatric history: anxiety, depression - Past Surgical History Surgical History: angioplasty/stent, breast surgery, carotid endarterectomy, cholecystectomy, orthopedic, other, other - Social History Smoking Status: Never smoker Smokeless Tobacco Status: No Alcohol use: rarely Drug use: none - Family History Father Adopted: No Family Member Ethnicity: Non- Living Status: Hx Family Cardiac Disorders: Yes Hx Family Respiratory Disorders: No Hx Family Cancer: No Hx Family GI Disorders: No Hx Family Endocrine Disorder: Yes Hx Family Neuromuscular Disorders: No Hx Family Neurologic Disorders: Yes Hx Family HEENT Disorders: No Hx Family Autoimmune Disorders: Yes Mother Family Member Ethnicity: Non- Living Status: Hx Family Cardiac Disorders: Yes Hx Family Respiratory Disorders: No Hx Family Cancer: Yes Hx Family GI Disorders: No Hx Family Endocrine Disorder: Yes Hx Family Neuromuscular Disorders: No Hx Family Neurologic Disorders: No Hx Family HEENT Disorders: No Hx Family Autoimmune Disorders: Yes (RA) Sister Adopted: No Living Status: Still Living Hx Family Cardiac Disorders: Yes Hx Family Respiratory Disorders: No Hx Family Cancer: No Hx Family GI Disorders: No Hx Family Endocrine Disorder: Yes Hx Family Neuromuscular Disorders: No Hx Family Neurologic Disorders: Yes Hx Family HEENT Disorders: No Hx Family Autoimmune Disorders: No Brother Adopted: No Living Status: Still Living Hx Family Cardiac Disorders: Yes Hx Family Respiratory Disorders: No Hx Family Cancer: No Hx Family GI Disorders: No Hx Family Endocrine Disorder: No Hx Family Neuromuscular Disorders: No Hx Family Neurologic Disorders: No Hx Family HEENT Disorders: No Hx Family Autoimmune Disorders: No Internal Medicine - H&P: Meds Escitalopram [Lexapro] 20 mg PO QAM 05/16/15 [History] Rosuvastatin [Crestor] 40 mg PO QPM 05/16/15 [History] Ranolazine [Ranexa] 1,000 mg PO BID #60 tab.er.12h 08/01/15 [Rx] Warfarin [Coumadin] 1.5 mg PO DAILY 01/15/16 [History] Aspirin 81 mg PO DAILY tab.chew 02/05/16 [Rx] Insulin Glargine,Hum.rec.anlog [Lantus Solostar] 40 unit SQ QPM 07/06/16 [ History] Insulin LISPRO [Humalog] 0 unit SQ TIDWM 07/06/16 [History] Losartan Potassium [Cozaar] 50 mg PO DAILY 07/06/16 [History] Nitroglycerin 0.4 mg SL Q5MIN PRN #0 tab.subl 07/10/16 [Rx] Oxygen 2 l NS AD 08/07/16 [History] Clopidogrel [Plavix] 75 mg PO DAILY #30 tablet 08/15/16 [Rx] Pantoprazole Sodium [Protonix] 40 mg PO DAILY #30 tablet.dr 08/15/16 [Rx] Melatonin 10 mg PO HS 09/19/16 [History] Amlodipine [Norvasc] 5 mg PO DAILY 11/04/16 [History] Anastrozole [Arimidex] 1 mg PO DAILY 11/04/16 [History] Carvedilol 12.5 mg PO BID 11/04/16 [History] Cholecalciferol (D-3) [Vitamin D] 1,000 unit PO DAILY 11/04/16 [History] Isosorbide MONOnitrate [Isosorbide Mononitrate ER] 120 mg PO DAILY 11/04/16 [ History] Furosemide [Lasix] 60 mg PO BID #60 tab 02/23/17 [Rx] Metolazone [Zaroxolyn] 2.5 mg PO WE 01/05/17 [History] Potassium Chloride [K-Tab ER] 20 meq PO BID 01/05/17 [History] Allergies phenylbutazone [From Butazolidin] Allergy (Verified 09/07/16 13:54) Rash amitriptyline [From Elavil] Adverse Reaction (Verified 09/07/16 13:54) Headache codeine Adverse Reaction (Verified 09/07/16 13:54) Headache desipramine Adverse Reaction (Verified 09/07/16 13:54) Headache lisinopril Adverse Reaction (Verified 09/07/16 13:54) Cough meperidine [From Demerol] Adverse Reaction (Verified 09/07/16 13:54) Headache nalbuphine Adverse Reaction (Verified 09/07/16 13:54) Headache Nortriptyline Adverse Reaction (Verified 09/07/16 13:54) Headache tiagabine Adverse Reaction (Verified 09/07/16 13:54) Headache All Systems PM: A 10-system review of systems was performed and is negative for pertinent findings except as documented above in the HPI. - Constitutional Vitals: Temp Pulse Resp BP Pulse Ox 97.8 F 54 16 127/59 95 01/05/17 17:59 01/05/17 18:47 01/05/17 18:47 01/05/17 18:47 01/05/17 18:47 Exam: General: In mild distress at the time of my evaluation HEENT: Oral mucosa is moist. No conjunctival palor or scleral icterus Neck: No obvious neck swellings Lungs: Clear to auscultation Cardiac: Regular rate and rhythm. No significant murmurs Abdomen: Soft, non tender. Bowel sounds present Genitourinary: No bender catheter Neurological: Alert and oriented. No gross localizing deficits Psych: Not aggressive or agitated Extremities: no significant leg edema Skin: No generalized rash Internal Med - H&P Results - Labs CBC & Chem 7: 01/05/17 14:34 01/05/17 19:31 - EKG Data -: EKG Interpreted by Myself EKG shows normal: sinus rhythm Rate: bradycardia - EKG Data EKG comments: First-degree AV block 01/05/17 19:49 - Impressions ITS Impressions Chest X-Ray 01/05/17 14:01 IMPRESSION: No acute cardiopulmonary disease. D/ / Saravanan Monte MD / Saravanan Monte MD Interpreting Provider: Saravanan Monte MD - VTE Reasons for not Prescribing Prophylaxis: Not indicated-Anticoagulated or INR therapeutic
[2017-01-05] MEDS: *HR* Morphine 2 MG/ML SYRINGE IVP PRN (19:05)
[2017-01-05] MEDS ORDERED: D5% in Water 1,000 ML IVC PRN (19:19)
[2017-01-05] MEDS ORDERED: *HR* Dextrose 50 % in Water (Syg) 50 ML SYRINGE IVP PRN (19:19)
[2017-01-05] MEDS ORDERED: Dextrose Gel 15 GM PO PRN ×2 (19:19)
[2017-01-05 19:54] LABS: Magnesium 2.1 mg/dL (1.6-2.6); Potassium 3.2 mEq/L (3.5-4.5)
[2017-01-05] MEDS: Insulin LISPRO 300 UNITS/3 ML VIAL SQ SCH (20:37)
[2017-01-06] MEDS: Melatonin 3 MG TABLET PO SCH ×2 (00:35→21:17)
[2017-01-06 05:18] LABS: Basophils % 0.5 %; Eosinophils # 0.2 K/mcL (0.0-0.6); Eosinophils % 4.7 %; Hematocrit 34.4 % (35.3-44.9); Hemoglobin 11.2 g/dL (11.5-15.4); Immature Granulocytes % 0.7 % (0-4); Lymphocytes # 1.2 K/mcL (0.6-4.6); Lymphocytes % 28.4 %; Mean Corpuscular HGB Conc 32.6 g/dL (31.6-35.5); Mean Corpuscular Hemoglobin 25.5 pg (28.0-33.3); Mean Corpuscular Volume 78.4 fL (83.0-100.0); Mean Platelet Volume 10.8 fL (9.4-12.4); Monocytes # 0.4 K/mcL (0.0-1.3); Monocytes % 9.4 %; Neutrophils # 2.4 K/mcL (1.6-8.9); Platelet Count 151 K/mcL (140-400); Red Blood Count 4.39 M/mcL (3.82-4.97); Red Cell Distribution Width 14.9 % (11.5-14.5); Segmented Neutrophils % 56.3 %
[2017-01-06 05:22] LABS: INR 2.9; Prothrombin Time 32.1 Seconds (9.4-12.1)
[2017-01-06 05:31] LABS: Calcium 9.7 mg/dL (8.6-10.8); Chol/HDL Ratio 4.7 (0-4.9); Potassium 3.3 mEq/L (3.5-4.5)
--- NOTE | 2017-01-06 11:13 | Cardiology Consult Note ---
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 EKG upon review of eCW was noted to be sinus mikael at rate of [address]-t changes and left axis deviation. EKG in ED revealed sinus mikael with rate 57, 1st degree av block with pr 223, no st elevations or depressions or t wave inversions, no changes from prior ekg. CXR revealed no acute cardiopulm process, dense aortic vascular calcification, lungs clear, and small calcified granuloma at left lateral lung base. Troponins have been 0.06, 0.05, 0.05. BNP 206, Cr 1.22 Home medications include Imdur 120mg qd, Ranexa 1000 bid, and Amlodipine 5mg qd. Patient on maximal medical therapy for Angina. C not indicated at this time, continue with medical management. Discontinue Nitro drip Resume home amlodipine 5mg qd. Hold home Imdur dosing. Nuclear Stress Test ordered for tomorrow. Qualifiers: Chest pain type: other chest pain Qualified Code(s): R07.89 - Other chest pain; R07.8 - Other chest pain (2) CAD (coronary artery disease) Current Visit: Yes Status: Chronic S/p stent to LAD and stent to RCA in Sep 2016 at [facility]. [facility] 08/10/16 revealed severe one vessel disease of distal RCA 99% stenosis, 50% stenosis in right PDA. Continue home medications for chronic disease management per plan in assessment above. Hold Imdur for Nuclear Stress testing tomorrow. Qualifiers: Coronary Disease-Associated Artery/Lesion type: [place] artery [place] vs. transplanted heart: [place] heart Associated angina: without angina Qualified Code(s): I25.10 - Atherosclerotic heart disease of [place] coronary artery without angina pectoris (3) Atrial fibrillation Current Visit: Yes Status: Chronic History of afib on coumadin Currently rate controlled. Rate 61bpm. Continue home medications for chronic disease management. Qualifiers: Atrial fibrillation type: paroxysmal Qualified Code(s): I48.0 - Paroxysmal atrial fibrillation (4) HTN (hypertension) Current Visit: Yes Status: Chronic Bp elevated at 150/66. Continue home medications for chronic disease management. Continue monitoring. Qualifiers: Hypertension type: essential hypertension Qualified Code(s): I10 - Essential (primary) hypertension (5) CKD (chronic kidney disease) stage 3, GFR 30-59 ml/min Current Visit: Yes Status: Chronic Cr 1.22 upon admission, at baseline. Continue per Hospitalist plan. (6) Hyperlipidemia Current Visit: Yes Status: Acute Continue home medications for chronic disease management. Qualifiers: Hyperlipidemia type: unspecified Qualified Code(s): E78.5 - Hyperlipidemia , unspecified Discussion w patient/family: The assessment and plan as outlined above was discussed with the patient and/or family members who expressed understanding and agreement. All questions were answered. Thank you for involving us in the care of your patient. Please call with any questions. History of Present Illness Consult date: 01/05/17 Requesting physician: Kushal Angulo Consult reason: ACS Chief complaint: Chest pain History of present illness: Ms. Fischer is a 71 year old female with history of CAD s/p [facility] with most recent stent in RCA Sep 2016, systolic CHF, afib on coumadin, reported tachy- mikael syndrome, hypertension, history of CVA x2, hx of TIA, mitral regrugitation , PAD, diabetes on custodial insulin, gerd, hyperlipidemia, factor V ledien, INEZ , and CKD stage 3 who presented to the ED yesterday after seeing PCP with complaint of intermittent achy substernal chest pain at rest with radiation into her jaw and left upper extremity for 2 days prior to arrival. Patient reports improvement with sunblingual nitroglycerin. Patient denies fevers, chills, sweats, headaches, lightheadedness, dizziness, shortness of breath, abdominal pain, changes in bowels or bladder, weakness, or loss of sensation. EKG revealed sinus bradycardia with rate of [address] elevations or depressions or t wave inversions, no changes from comparison. CXR revealed no acute cardiopulm disease, dense aortic vascular calcification, lungs clear, and small calcified granuloma at the left lateral lung base. Troponins have been 0.06, 0.05, 0.05. BNP 206, Cr 1.22, potassium 3.2. Patient was started on a nitro drip and admitted for ACS. Cardiology was consulted for management of ACS. Overnight patient denies chest pain or pressure, palpitations, shortness of breath. Also denies sweats, nausea, vomiting, abdominal pain, back pain, dizziness, lightheadedness, or weakness. Past Med Surg Social Fam HX - Past Medical History Medical history: arthritis, atrial fibrillation, cancer, CHF, coronary artery disease, CVA, DVT, diabetes, GERD, hyperlipidemia, hypertension, myocardial infarction, osteoporosis, peripheral artery disease, renal disease, TIA, valvular heart disease, other Psychiatric history: anxiety, depression - Past Surgical History Surgical History: angioplasty/stent, breast surgery, carotid endarterectomy, cholecystectomy, orthopedic, other, other - Social History Smoking Status: Never smoker Smokeless Tobacco Status: No Alcohol use: rarely Drug use: none - Family History Father Adopted: No Family Member Ethnicity: Non- Living Status: Hx Family Cardiac Disorders: Yes Hx Family Respiratory Disorders: No Hx Family Cancer: No Hx Family GI Disorders: No Hx Family Endocrine Disorder: Yes Hx Family Neuromuscular Disorders: No Hx Family Neurologic Disorders: Yes Hx Family HEENT Disorders: No Hx Family Autoimmune Disorders: Yes Mother Family Member Ethnicity: Non- Living Status: Hx Family Cardiac Disorders: Yes Hx Family Respiratory Disorders: No Hx Family Cancer: Yes Hx Family GI Disorders: No Hx Family Endocrine Disorder: Yes Hx Family Neuromuscular Disorders: No Hx Family Neurologic Disorders: No Hx Family HEENT Disorders: No Hx Family Autoimmune Disorders: Yes (RA) Sister Adopted: No Living Status: Still Living Hx Family Cardiac Disorders: Yes Hx Family Respiratory Disorders: No Hx Family Cancer: No Hx Family GI Disorders: No Hx Family Endocrine Disorder: Yes Hx Family Neuromuscular Disorders: No Hx Family Neurologic Disorders: Yes Hx Family HEENT Disorders: No Hx Family Autoimmune Disorders: No Brother Adopted: No Living Status: Still Living Hx Family Cardiac Disorders: Yes Hx Family Respiratory Disorders: No Hx Family Cancer: No Hx Family GI Disorders: No Hx Family Endocrine Disorder: No Hx Family Neuromuscular Disorders: No Hx Family Neurologic Disorders: No Hx Family HEENT Disorders: No Hx Family Autoimmune Disorders: No Medications and Allergies Escitalopram [Lexapro] 20 mg PO QAM 05/16/15 [History] Rosuvastatin [Crestor] 40 mg PO QPM 05/16/15 [History] Ranolazine [Ranexa] 1,000 mg PO BID #60 tab.er.12h 08/01/15 [Rx] Warfarin [Coumadin] 1.5 mg PO DAILY 01/15/16 [History] Aspirin 81 mg PO DAILY tab.chew 02/05/16 [Rx] Insulin Glargine,Hum.rec.anlog [Lantus Solostar] 40 unit SQ QPM 07/06/16 [ History] Insulin LISPRO [Humalog] 0 unit SQ TIDWM 07/06/16 [History] Losartan Potassium [Cozaar] 50 mg PO DAILY 07/06/16 [History] Nitroglycerin 0.4 mg SL Q5MIN PRN #0 tab.subl 07/10/16 [Rx] Oxygen 2 l NS AD 08/07/16 [History] Clopidogrel [Plavix] 75 mg PO DAILY #30 tablet 08/15/16 [Rx] Pantoprazole Sodium [Protonix] 40 mg PO DAILY #30 tablet.dr 08/15/16 [Rx] Melatonin 10 mg PO HS 09/19/16 [History] Amlodipine [Norvasc] 5 mg PO DAILY 11/04/16 [History] Anastrozole [Arimidex] 1 mg PO DAILY 11/04/16 [History] Carvedilol 12.5 mg PO BID 11/04/16 [History] Cholecalciferol (D-3) [Vitamin D] 1,000 unit PO DAILY 11/04/16 [History] Isosorbide MONOnitrate [Isosorbide Mononitrate ER] 120 mg PO DAILY 11/04/16 [ History] Furosemide [Lasix] 60 mg PO BID #60 tab 11/06/16 [Rx] Metolazone [Zaroxolyn] 2.5 mg PO WE 01/05/17 [History] Potassium Chloride [K-Tab ER] 20 meq PO BID 01/05/17 [History] Allergies phenylbutazone [From Butazolidin] Allergy (Verified 09/07/16 13:54) Rash amitriptyline [From Elavil] Adverse Reaction (Verified 09/07/16 13:54) Headache codeine Adverse Reaction (Verified 09/07/16 13:54) Headache desipramine Adverse Reaction (Verified 09/07/16 13:54) Headache lisinopril Adverse Reaction (Verified 09/07/16 13:54) Cough meperidine [From Demerol] Adverse Reaction (Verified 09/07/16 13:54) Headache nalbuphine Adverse Reaction (Verified 09/07/16 13:54) Headache Nortriptyline Adverse Reaction (Verified 09/07/16 13:54) Headache tiagabine Adverse Reaction (Verified 09/07/16 13:54) Headache All Systems Review: A 10-system review of systems was performed and is negative for pertinent findings except as documented above in the HPI. Physical Examination Vital Signs, Last 4 Hours Pulse Ox 01/06/17 08:00 97 General: Conversant, No Apparent Distress HEENT: Atraumatic, Normocephaly, Mucus Membranes Moist Neck: No JVD, Normal carotid pulses Cardiac: Normal S1 and S2, Other (irregular rate, irregular rhythm) Lungs: Normal Breath Sounds, No Wheeze, Rales, Rhonchi Neuro: Alert and responsive, No focal deficits noted Abdomen: Soft, Non-Tender Skin: No rashes noted on visualized skin Musculoskeletal: No Chest Wall Tenderness Extremities: No Clubbing, No Cyanosis, Normal Pulses Results 01/06/17 04:19 01/06/17 04:19 Lab Results 01/05/17 01/05/17 01/06/17 19:31 19:31 04:19 WBC 4.3 Hgb 11.2 L D Hct 34.4 L Plt Count 151 INR Sodium Potassium 3.2 L Chloride Carbon Dioxide BUN Creatinine Glucose Calcium Magnesium 2.1 Troponin I 0.05 H* 01/06/17 01/06/17 01/06/17 04:19 04:19 04:19 WBC Hgb Hct Plt Count INR 2.9 Sodium 143 Potassium 3.3 L Chloride 104 Carbon Dioxide 29 BUN 47 H D Creatinine 1.14 H Glucose 154 H Calcium 9.7 Magnesium Troponin I 0.06 H* Consult Discharge Plan - Plan Referrals: Adalberto Quijano MD [Primary Care Provider] -
[2017-01-06] MEDS: Insulin LISPRO 300 UNITS/3 ML VIAL SQ SCH ×4 (12:15→21:18)
[2017-01-06] MEDS: Aspirin 81 MG TAB.CHEW PO SCH (12:16)
[2017-01-06] MEDS: Ranolazine 500 MG TAB.ER.12H PO SCH ×2 (12:16→21:17)
[2017-01-06] MEDS: Anastrozole 1 MG TABLET PO SCH (12:16)
[2017-01-06] MEDS: Furosemide 20 MG TABLET PO SCH ×2 (12:18→17:38)
--- NOTE | 2017-01-06 13:41 | Internal Med Progress Note ---
Date of Encounter: 01/06/17 Time of Encounter: 13:38 - Assessment and plan (1) Elevated troponin Current Visit: No Status: Acute Assessment and plan: Elevated troponin is likely secondary to multifactorial etiology. Plan: Will continue aspirin/beta blockers/statins. Cardiology on the board and we will follow the recommendation (2) COPD (chronic obstructive pulmonary disease) Current Visit: No Status: Chronic Assessment and plan: Stable and we will continue home medication. Qualifiers: COPD type: unspecified COPD Qualified Code(s): J44.9 - Chronic obstructive pulmonary disease, unspecified (3) HTN (hypertension) Current Visit: No Status: Chronic Assessment and plan: Within acceptable limits. Will continue home medications. Qualifiers: Hypertension type: essential hypertension Qualified Code(s): I10 - Essential (primary) hypertension (4) Factor V Leiden Current Visit: Yes Status: Chronic Assessment and plan: Patient is on Coumadin. (5) CAD (coronary artery disease) Current Visit: Yes Status: Chronic Assessment and plan: Strong history of coronary artery disease. Cardiology is planning for nuclear stress test. Will follow the recommendation. Qualifiers: Coronary Disease-Associated Artery/Lesion type: [place] artery [place] vs. transplanted heart: [place] heart Associated angina: without angina Qualified Code(s): I25.10 - Atherosclerotic heart disease of [place] coronary artery without angina pectoris - Subjective Interval history: Patient seen and examined. Chart reviewed. Patient denies chest pain, shortness of breath, palpitation, dizziness, vomiting and diarrhea. - Constitutional Vitals: Temp Pulse Resp BP Pulse Ox 97.8 F 61 17 150/66 98 01/06/17 11:00 01/06/17 11:00 01/06/17 11:00 01/06/17 11:00 01/06/17 11:00 General appearance: Present: A&O X 3, pleasant, no acute distress, answers questions appropriately - Head Head exam: Present: atraumatic, normocephalic - Eye Eye exam: Present: PERRL, conjuntiva pink, sclera anicteric Pupils: Present: PERRL - Neck Neck exam general surgery: Present: supple, trachea midline. Absent: lymphadenopathy - Respiratory Respiratory exam: Present: CTAB. Absent: accessory muscle use, rales, rhonchi, wheezes - Cardiovascular Cardiovascular exam: Present: RRR, +S1, +S2. Absent: diastolic murmur, gallop, rubs, systolic murmur - GI/Abdominal GI/Abdominal exam: Present: normal bowel sounds, soft, no peritoneal signs. Absent: distended, tenderness - Extremities Exam Extremities exam: Present: warm, radial pulses palpable and symetrical. Absent : calf tenderness, cyanotic, pedal edema - Neurological Exam Neurological exam: Present: CN II-XII intact, oriented X3, no focal deficits. Absent: pronater drift, facial droop, speech deficit - Skin Skin exam: Present: dry, intact Internal Medicine: Result - Labs CBC & Chem 7: 01/06/17 04:19 01/06/17 04:19 Labs: Short CBC 01/06/17 Range/Units 04:19 WBC 4.3 (4.3-11.1) K/mcL Hgb 11.2 L D (11.5-15.4) g/dL Hct 34.4 L (35.3-44.9) % Plt Count 151 (140-400) K/mcL Neutrophils # 2.4 (1.6-8.9) K/mcL BMP 01/05/17 01/06/17 19:31 04:19 Sodium 143 Potassium 3.2 L 3.3 L Chloride 104 Carbon Dioxide 29 BUN 47 H D Creatinine 1.14 H Glucose 154 H Calcium 9.7 Cardiac Enzymes 01/05/17 01/06/17 Range/Units 19:31 04:19 Troponin I 0.05 H* 0.06 H* (0-0.03) ng/mL - ABG Interpretation ABG results: PT/INR, D-dimer PT 32.1 Seconds (9.4-12.1) H 01/06/17 04:19 D-Dimer 339 ng/mLFEU (0-500) 01/05/17 14:34 - VTE Reasons for not Prescribing Prophylaxis: Not indicated-Anticoagulated or INR therapeutic Consult Discharge Plan - Plan Referrals: Adalberto Quijano MD [Primary Care Provider] -
--- NOTE | 2017-01-06 14:33 | Electrocardiograph Report ---
[facility] [employer] Test Date: 2017-01-05 Pat Name: Miriam Fischer Department: 102 Room: 2NE29 Gender: F Gem Carver: : 1945 Requested By: Ye Sommers Order Number: [id number] Reading MD: Robbie Hodges MD Measurements Intervals [place] Rate: 57 P: 67 [place]: 223 QRS: -12 QRSD: 98 T: 45 QT: 455 QTc: 448 Interpretive Statements SINUS BRADYCARDIA WITH FIRST DEGREE AV BLOCK NONSPECIFIC ST \T\ T-WAVE ABNORMALITY Electronically Signed On 01-06-2017 14:31:32 EDT by Robbie Hodges MD
--- NOTE | 2017-01-06 14:35 | Electrocardiograph Report ---
[facility] [employer] Test Date: 2017-01-05 Pat Name: Miriam Fischer Department: 102 Room: 2NE29 Gender: F Track Service Person: Denise : 1945 Requested By: eY Sommers Order Number: [id number] Reading MD: Robbie Hodges MD Measurements Intervals [place] Rate: 55 P: 62 [place]: 227 QRS: -8 QRSD: 107 T: 42 QT: 460 QTc: 448 Interpretive Statements SINUS BRADYCARDIA WITH FIRST DEGREE AV BLOCK WITH OCCASIONAL VENTRICULAR PREMATURE COMPLEXES NONSPECIFIC ST \T\ T-WAVE ABNORMALITY Electronically Signed On 01-06-2017 14:33:33 EDT by Robbie Hodges MD
[2017-01-06] MEDS ORDERED: Warfarin perPT PO PRN (18:00)
[2017-01-06] MEDS ORDERED: *HR* Warfarin 3 MG TABLET PO ONE (18:00)
[2017-01-06] MEDS: Nitroglycerin 0.4 MG TAB.SUBL SL PRN (23:59)
[2017-01-07] MEDS: Nitroglycerin 0.4 MG TAB.SUBL SL PRN ×5 (00:36→10:20)
[2017-01-07 04:15] LABS: INR 2.2; Prothrombin Time 24.5 Seconds (9.4-12.1)
[2017-01-07] MEDS ORDERED: Regadenoson 0.4 MG/5 ML SYRINGE IVP ONE (06:21)
[2017-01-07] MEDS: Ranolazine 500 MG TAB.ER.12H PO SCH ×2 (09:26→20:48)
[2017-01-07] MEDS: Furosemide 20 MG TABLET PO SCH ×2 (09:27→17:32)
[2017-01-07] MEDS: amLODIPine 5 MG TABLET PO SCH (09:27)
[2017-01-07] MEDS: Aspirin 81 MG TAB.CHEW PO SCH (09:27)
[2017-01-07] MEDS: Insulin LISPRO 300 UNITS/3 ML VIAL SQ SCH ×5 (09:27→20:49)
[2017-01-07] MEDS: Anastrozole 1 MG TABLET PO SCH (09:27)
--- NOTE | 2017-01-07 10:35 | Cardiology Progress Note ---
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 EKG upon review of eCW was noted to be sinus mikael at rate of [address]-t changes and left axis deviation. EKG in ED revealed sinus mikael with rate 57, 1st degree av block with pr 223, no st elevations or depressions or t wave inversions, no changes from prior ekg. CXR revealed no acute cardiopulm process, dense aortic vascular calcification, lungs clear, and small calcified granuloma at left lateral lung base. Troponins have been 0.05, 0.05, 0.06 BNP 206, Cr 1.22 INR 2.2 Patient reports one episode of chest pain overnight requiring sublingual nitroglycerin x3. Nuclear stress test this morning Abnormal. Pharmacologic stress ecg non diagnostic for ischemia due to submaximal hr and baseline st-t changes, gated EF 67%. Medium sized mild to moderate intensity, reversible inferolateral defect consistent with ischemia. Patient reported chest pain and nausea throughout testing. Home medications include Imdur 120mg qd, Ranexa 1000 bid, and Amlodipine 5mg qd. Patient on maximal medical therapy for Angina. Resume above home meds. Hold coumadin overnight. [facility] indicated, plan for tomorrow. Qualifiers: Chest pain type: other chest pain Qualified Code(s): R07.89 - Other chest pain; R07.8 - Other chest pain (2) CAD (coronary artery disease) Current Visit: Yes Status: Chronic S/p stent to LAD and stent to RCA in Sep 2016 at [facility]. [facility] 08/10/16 revealed severe one vessel disease of distal RCA 99% stenosis, 50% stenosis in right PDA. Nuclear stress test this morning Abnormal. Pharmacologic stress ecg non diagnostic for ischemia due to submaximal hr and baseline st-t changes, gated EF 67%. Medium sized mild to moderate intensity, reversible inferolateral defect consistent with ischemia. Patient reported chest pain and nausea throughout testing. Continue home medications for chronic disease management per plan in assessment above, [facility] indicated. Qualifiers: Coronary Disease-Associated Artery/Lesion type: [place] artery [place] vs. transplanted heart: [place] heart Associated angina: without angina Qualified Code(s): I25.10 - Atherosclerotic heart disease of [place] coronary artery without angina pectoris (3) Atrial fibrillation Current Visit: Yes Status: Chronic History of afib on coumadin Currently rate controlled. Rate controlled overnight in upper 50 to lower 60s. Rate has been mikael in mid to upper 40s post nuclear stress testing. Continue home medications for chronic disease management. Qualifiers: Atrial fibrillation type: paroxysmal Qualified Code(s): I48.0 - Paroxysmal atrial fibrillation (4) HTN (hypertension) Current Visit: Yes Status: Chronic Bp at 157/43. Continue home medications for chronic disease management. Carvedilol 12.5 bid held due to low heart rates. Continue losartan and amlodipine. Continue monitoring. Qualifiers: Hypertension type: essential hypertension Qualified Code(s): I10 - Essential (primary) hypertension (5) CKD (chronic kidney disease) stage 3, GFR 30-59 ml/min Current Visit: Yes Status: Chronic Cr 1.22 upon admission, at baseline. Continue per Hospitalist plan. (6) Hyperlipidemia Current Visit: Yes Status: Acute Continue home medications for chronic disease management. Qualifiers: Hyperlipidemia type: unspecified Qualified Code(s): E78.5 - Hyperlipidemia , unspecified Discussion w patient/family: The assessment and plan as outlined above was discussed with the patient and/or family members who expressed understanding and agreement. All questions were answered. Thank you for involving us in the care of your patient. Please call with any questions. Subjective Principal diagnosis: Chest pain Interval history: Patient reports one episode of chest pain at rest overnight without associated symptoms requiring 3 doses of sublingual nitroglycerin. Patient reports she did not like the stress test this morning as it made her develop chest pain and nausea, though patient appears to be comfortable in bed eating breakfast less than 30 minutes after leaving testing. Patient denies fevers, chills, sweats, changes in vision or hearing, lightheadedness, dizziness, headaches, shortness of breath, abdominal pain, changes in bowels or bladder, weakness, or loss of sensation. Objective Vital Signs, Last 4 Hours Temp Pulse Resp BP Pulse Ox 01/07/17 07:03 97.3 F L 45 15 157/43 99 General: Conversant, No Apparent Distress HEENT: Atraumatic, Normocephaly, Mucus Membranes Moist Neck: No JVD, Normal carotid pulses Cardiac: Normal S1 and S2, No Murmur, Other (irregularly irregular) Lungs: Normal Breath Sounds, No Wheeze, Rales, Rhonchi Neuro: Alert and responsive, No focal deficits noted Abdomen: Soft, Non-Tender Skin: No rashes noted on visualized skin Musculoskeletal: No Chest Wall Tenderness Extremities: No Clubbing, No Cyanosis, No Edema, Normal Pulses Results 01/06/17 04:19 01/06/17 04:19 Lab Results 01/07/17 03:29 INR 2.2 - VTE Reasons for not Prescribing Prophylaxis: Not indicated-Anticoagulated or INR therapeutic Consult Discharge Plan - Plan Referrals: Adalberto Quijano MD [Primary Care Provider] -
[2017-01-07] MEDS ORDERED: NON-FORMULARY MEDICATION 1 EACH EACH (Isosorbide Mononitrate [Isosorbide Mononitrate Er] 1 PO SCH (11:00)
--- NOTE | 2017-01-07 11:13 | Nuclear Medicine Stress Report ---
Regadenoson Nuclear Stress Name: Miriam Fischer Date of Study: 01/07/2017 Date: 1945 Ht: 58.0 in Medical Record#: [id number] Age: 71 Wt: 150.0 lb Gender: Female Order #: [id number] Location: [facility] Room: [facility] Supervising Provider: Maryellen Ferrara CNP Reading Physician: Charan Chaidez DO, LOLLY ADAIR FASNC Ordering Physician: Sanjay Nieves MD Primary Care Physician: Adalberto Quijano MD Stress Technologist: Ervin Kelly CRT Evaluation Analyst: Hector Thompson Impression: Pharmacologic stress ECG is non diagnostic for ischemia due to submaximal HR and baseline ST-T changes. Gated EF = 67%. Medium sized, mild to moderate intensity, reversible inferolateral defect consistent with ischemia. Dr. Nieves notified via [employer]. History: Hypertension Diabetes Hypercholesteremia Prior PCI Stress Test Summary: Stress Test Type: Pharmacologic Baseline Information: Initial Heart Rate: 55 Blood Pressure: 143/70 Stress Information: Test Terminated Due to (primary): As per protocol Maximum Blood Pressure: 112/64 Maximum Heart Rate: 66 Percent Maximum Heart Rate Achieved: 7392 Double Product: 7392 METS Reached: 1 Symptoms: Chest pain Nuclear Summary: SPECT myocardial perfusion imaging using Tc99m Sestamibi given intravenously was performed at rest and following cardiac stress testing. The resting images were obtained following initial dose of 11.0 mCi. Following stress an additional dose of 35.9 mCi was given at peak exercise or 30 seconds post regadenoson infusion. Medication Given: Time Medication Dose Units Route Findings: Stress Note * Resting ECG demonstrated normal sinus rhythm with sinus arrhythmia and baselline ST-T changes * Rare PVCs noted prior to exam beginning. * Pharmacologic stress ECG is non diagnostic for ischemia due to submaximal HR and baseline ST-T changes. * Occasional PVCs noted during stress. * Chest pain reported prior to, during, and after the study. Hemodynamic responses * Normal hemodynamic responses to pharmacologic stress. Study Quality * Study quality is average. Gated EF % * Gated EF = 67%. Left Ventricle * The left ventricle is not dilated. * LVEDV = 107 mL. NORMALS * Normal wall motion. Inferior Perfusion Rest * The basal inferior segment shows a mild reduction in perfusion. Inferior Perfusion Stress * The inferolateral segments show a mild to moderate reduction in perfusion. TID * No evidence of transient ischemic dilatation. TID ratio * TID ratio = 1.27. Lung Uptake * There is no evidence of increase lung uptake. Updated by Charan Chaidez DO, GIOVANY, LOLLY, [place] on 01/07/2017 11:06:07 AM electronically signed on 01/07/2017 11:06:51 AM with status of Final
[2017-01-07] MEDS ORDERED: Isosorbide MONOnitrate (24 HR) 60 MG TAB.ER.24H PO SCH (11:15)
--- NOTE | 2017-01-07 13:41 | Internal Med Progress Note ---
Date of Encounter: 01/07/17 Time of Encounter: 13:39 - Assessment and plan (1) CAD (coronary artery disease) Current Visit: Yes Status: Chronic Assessment and plan: Strong history of coronary artery disease. Cardiology is planning for nuclear stress test. Will follow the recommendation. 01/07/2017 Patient has a persistent chest pain this morning. Responded to nitroglycerin. Noted that this morning patient had a stress test done. Case discussed with the cardiology. Stress test: Reversible inferolateral ischemia. Cardiology discussed findings of stress test with the patient. Patient agreed for cardiac catheterization. Plan for cardiac catheterization tomorrow as per cardiology Qualifiers: Coronary Disease-Associated Artery/Lesion type: [place] artery [place] vs. transplanted heart: [place] heart Associated angina: without angina Qualified Code(s): I25.10 - Atherosclerotic heart disease of [place] coronary artery without angina pectoris (2) Elevated troponin Current Visit: No Status: Acute Assessment and plan: Elevated troponin is likely secondary to multifactorial etiology. Plan: Will continue aspirin/beta blockers/statins. Cardiology on the board and we will follow the recommendation (3) COPD (chronic obstructive pulmonary disease) Current Visit: No Status: Chronic Assessment and plan: Stable and we will continue home medication. Qualifiers: COPD type: unspecified COPD Qualified Code(s): J44.9 - Chronic obstructive pulmonary disease, unspecified (4) HTN (hypertension) Current Visit: No Status: Chronic Assessment and plan: Within acceptable limits. Will continue home medications. Qualifiers: Hypertension type: essential hypertension Qualified Code(s): I10 - Essential (primary) hypertension (5) Factor V Leiden Current Visit: Yes Status: Chronic Assessment and plan: Patient is on Coumadin. - Subjective Interval history: Patient seen and examined. Chart reviewed. Patient denies chest pain, shortness of breath, palpitation, dizziness, vomiting and diarrhea. 01/07/2017 Patient seen and examined. Chart reviewed. Patient's at bedside. Patient was complaining of persistent, crushing, retrosternal, nonradiating, localized, chest pain. Patient had a stress test this morning. Patient responded to 4 nitroglycerin sublingually. - Constitutional Vitals: Temp Pulse Resp BP Pulse Ox 98.2 F 95 16 131/75 96 01/07/17 11:14 01/07/17 11:14 01/07/17 11:14 01/07/17 11:14 01/07/17 11:14 General appearance: Present: A&O X 3, pleasant, no acute distress, answers questions appropriately - Head Head exam: Present: atraumatic, normocephalic - Eye Eye exam: Present: PERRL, conjuntiva pink, sclera anicteric Pupils: Present: PERRL - Neck Neck exam general surgery: Present: supple, trachea midline. Absent: lymphadenopathy - Respiratory Respiratory exam: Present: CTAB. Absent: accessory muscle use, rales, rhonchi, wheezes - Cardiovascular Cardiovascular exam: Present: RRR, +S1, +S2. Absent: diastolic murmur, gallop, rubs, systolic murmur - GI/Abdominal GI/Abdominal exam: Present: normal bowel sounds, soft, no peritoneal signs. Absent: distended, tenderness - Extremities Exam Extremities exam: Present: warm, radial pulses palpable and symetrical. Absent : calf tenderness, cyanotic, pedal edema - Neurological Exam Neurological exam: Present: CN II-XII intact, oriented X3, no focal deficits. Absent: pronater drift, facial droop, speech deficit - Skin Skin exam: Present: dry, intact Internal Medicine: Result - Labs CBC & Chem 7: 01/06/17 04:19 01/06/17 04:19 - ABG Interpretation ABG results: PT/INR, D-dimer PT 24.5 Seconds (9.4-12.1) H 01/07/17 03:29 D-Dimer 339 ng/mLFEU (0-500) 01/05/17 14:34 - VTE Reasons for not Prescribing Prophylaxis: Not indicated-Anticoagulated or INR therapeutic Consult Discharge Plan - Plan Referrals: Adalberto Quijano MD [Primary Care Provider] -
[2017-01-07] MEDS ORDERED: *HR* Atropine Sulfate 1 MG/10 ML SYRINGE IVP ONE (15:15)
[2017-01-07] MEDS ORDERED: *HR* Warfarin 3 MG TABLET PO ONE (18:00)
--- NOTE | 2017-01-07 20:31 | Pre-Sedation Evaluation ---
Pre-sedation evaluation - Pre-sedation checklist Date of procedure: 01/08/17 Procedure: [facility] Recent Vitals: Last Vital Signs Temp 98.0 F 01/07/17 15:17 Pulse 51 01/07/17 15:17 Resp 16 01/07/17 15:17 BP 146/62 01/07/17 15:17 Pulse Ox 96 01/07/17 15:17 H&P (including ROS) documented in medical record: Yes Previous reaction to sedatives/anesthetics: No Dietary Status: No solid food in preceding 4 hrs and no liquid in preceding 2 hrs Airway Assessment: Patient can open mouth completely, TMJ function normal Dentition: full dentition ASA Classification *see protocol: CLASS II-Mild systemic disease Plan of Care: Pt appropriate candidate for procedure/moderate/conscious sedation , Risks/benefits of procedure/sedation discussed w/ patient/family
[2017-01-07] MEDS: Melatonin 3 MG TABLET PO SCH (20:48)
[2017-01-08] MEDS: Nitroglycerin 0.4 MG TAB.SUBL SL PRN (03:11)
--- NOTE | 2017-01-08 03:14 | Event Note ---
<Harsha Kunz - Last Filed: 01/08/17 03:29> Date of Encounter: 01/08/17 Time of Encounter: 03:13 Page concerning AMS, chest pain, bradycardia. Patient woke up, took off her bipap, and was confused complaining of chest pain. EKG, Trop and ABG ordered, nitro given stat. Evaluated patient. Is is now A&O x3, she is less confused. Feels like she is back to her baseline mentally. Admits to CP, which has improved with the nitro. Admits to SOB, feels like the bipap helps and she is more comfortable with the bipap. Heart irregular. No murmurs. Lungs CTAB. She reports a low HR normally since March. BP 149/59. HR is 48. EKG shows no changes when compared to previous. Patient is resting comfortably in bed. Awaiting troponin. Atropine is ordered. <Jair Nolen - Last Filed: 01/14/17 01:18> Date of Encounter: 01/08/17 My signature below is to certify that this patient is under my care and that I, or the Resident Physician, Dr. Kunz, working with me, has had a face-to- face encounter with this patient.
[2017-01-08 03:54] LABS: Prothrombin Time 22.4 Seconds (9.4-12.1)
[2017-01-08 04:20] LABS: ABG Base Excess 7.7 mEq/L (-2.0 to 3.0); ABG Oxygen Saturation 93 % (95-98); ABG PCO2 43 mmHg (35-45); ABG PH 7.48 pH Units (7.32-7.45); ABG PO2 62 mmHg (85-104); ABG TCO2 33.3 mEq/L (20-26)
[2017-01-08 04:21] LABS: Blood Gas FiO2 21 %
[2017-01-08] MEDS ORDERED: *HR* Heparin 10,000 UNIT/10 ML VIAL ONE (07:20)
[2017-01-08] MEDS ORDERED: Verapamil 5 MG/2 ML VIAL ONE (07:20)
[2017-01-08] MEDS ORDERED: 0.9 % Sodium Chloride 1,000 ML ONE (07:20)
[2017-01-08] MEDS ORDERED: Heparin 1,000 UNITS/500 mL NS 500 ML ONE (07:20)
[2017-01-08] MEDS ORDERED: Nitroglycerin 1,000 MCG/10 ML VIAL IV ONE (07:21)
[2017-01-08] MEDS ORDERED: *HR* Midazolam HCl 2 MG/2 ML VIAL ONE (07:49)
[2017-01-08] MEDS ORDERED: *HR* FentaNYL (PF) 100 MCG/2 ML VIAL ONE ×2 (07:50→07:52)
--- NOTE | 2017-01-08 09:04 | Invasive Diagnostic Lab Proc ---
Name: Miriam Fischer Date of Study: 01/08/2017 Date: 1945 Ht: 57.9in Medical Record#: [id number] Age: 71 Wt: 152.78lb Gender: Female BSA: 1.62 Order #: [id number] BMI: 32.07 Physicians Procedure Physician: Harsh Bobby MD, FACC Referring MD: Adalberto Quijano MD Referring MD: Staff Name Position Time In Osiel Black RN Medical Payment Poster 07:56 AM Ирина Lopez RN Monitor 07:56 AM Kina Marquez RN Monitor 07:56 AM Leyda Ogden RT (R) Scrub 07:57 AM Indications Indication Non-Stemi Procedures Performed Procedure L HRT ARTERY/VENTRICLE ANGIO Pre-Procedure Checklist Informed consent is complete signed and on chart. H\\T\\P is on chart. ID band is on and ID verified with patient. Patient NPO for procedure The procedure was described for the patient and questions were answered. Blood Pressure: 183/71 ECG is on chart. Rhythm: NSR Plan of Care Patient will tolerate the procedure without complications. Adequate level of comfort will be maintained. Hemodynamics will remain stable Patient will recover from procedure without complications. Respiratory function will be maintained. Cardiac rhythm will remain stable. Patient temperature will be maintained. Patient and/or family have verbalized understanding of the procedure. Patient Education Chief Complaint/Reason for Test: Cardiac Cath Developmental Category: Geriatric (65+ years) Developmentally Appropriate for Age: Yes Learning Barriers: None Education Needs: Procedure Education Method: Verbal Information Taught: Cardiac Cath Educational Evaluation: Able to repeat information Intravenous Access Time IV Size Location DC'd Fluid/Drip Rate Units RN 08:03 AM 22g 1" Patent On Arrival Lt Arm 0.9NaCl 25 ml/hr Osiel Black RN Allergies codeine phenylbutazone amitriptyline lisinopril Nortriptyline desipramine Vital Signs Time BP (mmHg) HR (bpm) O2 Sat. RR (bpm) LOC 08:00 AM 183 / 71 52 100 % 12 5 = Fully awake and oriented or at pre-proc level 08:00 AM / % 4 = Oriented but drowsy 08:15 AM / % 4 = Oriented but drowsy 08:31 AM / % 5 = Fully awake and oriented or at pre-proc level 08:14 AM 157 / 75 56 98 % 19 08:19 AM 159 / 67 56 100 % 20 08:24 AM 164 / 65 55 100 % 08:29 AM 134 / 70 58 100 % 17 08:35 AM 157 / 77 53 96 % 18 08:40 AM 170 / 72 58 100 % 21 08:44 AM 167 / 69 52 100 % 17 08:49 AM 164 / 74 59 100 % 13 07:55 AM 183 / 71 52 100 % 12 07:59 AM 172 / 72 55 100 % 21 08:04 AM 150 / 66 54 96 % 24 08:09 AM 159 / 73 54 98 % 13 Procedural Medications Time Medication Dose Units Method Given By 07:58 AM Versed 1 mg Intravenous JuaniornOsiel botello RN 07:59 AM Fentanyl 25 mcg Intravenous JuaniornOsiel botello RN 08:10 AM Versed 1 mg Intravenous IvanthorneOsiel RN 08:10 AM Fentanyl 25 mcg Intravenous MarianelaeOsiel RN 08:15 AM Lidocaine 2% 19 ml Subcutaneous Harsh Bobby MD, FACC 08:00 AM Oxygen 2 L/min nasal cannula Osiel Black RN ASA Classification: CLASS II- Mild systemic disease (i.e. well-controlled diabetes, hypertension, asthma, cigarette smoking) Angelita Score Preprocedure Postprocedure Activity 2- Moves 4 extremities sustained head lift Activity 2- Moves 4 extremities sustained head lift Circulation 2- SBP +/= 20 points of pre-anesthetic level Circulation 2- SBP +/= 20 points of pre-anesthetic level Consciousness 2- Awake and alert oriented x 3 Consciousness 2- Awake and alert oriented x 3 O2 Saturation 2- Able to maintain O2 satruation of 92% on room air O2 Saturation 2- Able to maintain O2 satruation of 92% on room air Respiratory 2- Able to deep breathe and cough well Respiratory 2- Able to deep breathe and cough well Total Score 10 Total Score 10 Contrast Agent: Isovue Diagnostic Contrast: 56 ml Total Contrast: 56 ml Fluoro Dose: 227 mGy Procedure Log Time Note Enter By 07:32 AM CathStat 07:54 AM Vitals capture started with the following parameters, Patient=Adult, Interval=5 min, Initial Rvnrdvno=265 mmHg, Deflation Rate=5 mmHg, Cuff placed on Left Arm 07:55 AM HR=52 bpm, MULH=801/71 mmhg, QpE6=321.0 %, Resp=12 B/min, Comment=Sinus Bear 07:56 AM Pt arrived to mechanical laboratory technician 2 at 07:56 tsites 07:56 AM Osiel Black RN Position: Medical Payment Poster Time in: 07:56 tsites 07:56 AM Ирина Lopez RN Position: Monitor Time in: 07:56 tsites 07:57 AM Kina Marquez RN Position: Monitor Time in: 07:56 tsites 07:57 AM Leyda Ogden RT (R) Position: Scrub Time in: 07:57 tsites 07:57 AM Patient charges- Angio tray pack, Navilyst 3mm J, Pulse Oximetry and ACIST tubing and transducer tsites 07:58 AM Physician arrived 07:58 tsites 07:58 AM ASA Class CLASS II- Mild systemic disease (i.e. well-controlled diabetes, hypertension, asthma, cigarette smoking) tsites 07:58 AM Meet and greet completed tsites 07:58 AM Sign in performed according to hospital policy. tsites 07:58 AM Procedure start 07:58 tsites 07:59 AM Time: 07:58 Versed 1 mg Intravenous Given by Osile Black RN tsites 07:59 AM Time: 07:59 Fentanyl 25 mcg Intravenous Given by Osiel Black RN tsites 07:59 AM HR=55 bpm, CMNR=002/72 mmhg, AqW8=426.0 %, Resp=21 B/min, Comment=Sinus Bear 08:00 AM Hair removed from procedure site in procedure lab using clippers. Bilateral groin prepped with Chloraprep by Osiel Black RN, safety strap applied then patient was draped. Skin intact. tsites 08:00 AM Time: 08:00 Oxygen on at 2 L/min per nasal cannula by Osiel Black RN pvannoy 08:00 AM Time: 08:00 Patient comfortable and pain free: Yes pvannoy 08:00 AM Time: 08:00LOC: 5 = Fully awake and oriented or at pre-proc level pvannoy 08:04 AM HR=54 bpm, HZEO=985/66 mmhg, SpO2=96.0 %, Resp=24 B/min, Comment=Sinus Bear 08:06 AM Case Delayed No pvannoy 08:06 AM Clinical Presentation: Non-STEMI pvannoy 08:07 AM Pressure channel 1 zeroed. 08:09 AM HR=54 bpm, RHFH=801/73 mmhg, SpO2=98.0 %, Resp=13 B/min, Comment=Sinus Bear 08:10 AM Time: 08:10 Versed 1 mg Intravenous Given by Osiel Black RN pvannoy 08:10 AM Time: 08:10 Fentanyl 25 mcg Intravenous Given by Osiel Black RN pvannoy 08:12 AM Time out performed according to hospital policy pvannoy 08:14 AM HR=56 bpm, NJRU=701/75 mmhg, SpO2=98.0 %, Resp=19 B/min, Comment=Sinus Bear 08:15 AM Time: 08:15 19 ml Lidocaine 2% to right groin Subcutaneous Given by Harsh Bobby MD, [facility] pvannoy 08:15 AM Time: 08:00LOC: 4 = Oriented but drowsy pvannoy 08:16 AM Time: 08:00 Patient comfortable and pain free: Yes pvannoy 08:17 AM Unsuccessful access attempt # 1 into the right Femoral artery. Manual pressure applied to achieve hemostasis.. pvannoy 08:19 AM HR=56 bpm, IABI=581/67 mmhg, ZmH3=918.0 %, Resp=20 B/min, Comment=Sinus Bear 08:21 AM Access obtained by percutaneous puncture. 5Fr 10cm Terumo [place] sheath placed in Rt Femoral artery. [id number] pvannoy 08:21 AM 5Fr FL 4 catheter inserted over the wire DN pvannoy 08:21 AM 0.035 145cm Navilyst 3mmJ wire [id number] pvannoy 08:22 AM 0.035 145cm VSI Tong-Torque wire [id number] pvannoy 08:23 AM LCA angiography performed in multiple views. pvannoy 08:24 AM Pressure channel 1 zeroed. 08:24 AM Recorded Pressure: Ao, HR=57, Condition=Condition 1 (Aorta) Ao 92/49/68 08:24 AM HR=55 bpm, HVKM=684/65 mmhg, VhV6=045.0 %, Comment=Sinus Bear 08:26 AM Catheter removed pvannoy 08:26 AM 5Fr FR 4 catheter inserted over the wire DN pvannoy 08:27 AM Recorded Pressure: Ao, HR=48, Condition=Condition 1 (Aorta) Ao 91/48/68 08:27 AM RCA angiography performed in multiple views. pvannoy 08:28 AM Recorded Pressure: Ao, HR=60, Condition=Condition 1 (Aorta) Ao 88/50/68 08:28 AM Catheter removed pvannoy 08:29 AM 5Fr Pigtail catheter inserted over the wire DNC pvannoy 08:29 AM Catheter selectively placed in left ventricle pvannoy 08:29 AM HR=58 bpm, ZVRX=238/70 mmhg, HhO7=110.0 %, Resp=17 B/min, Comment=Sinus Bear 08:29 AM Recorded Pressure: LV, HR=62, Condition=Condition 1 (Left Ventricle) LV 121/13/14 08:30 AM Bolus angiogram of left Ventricle complete: 10 ml/sec for a total of 20 mls pvannoy 08:30 AM Recorded Pressure: LV, Ao, HR=55, Condition=Condition 1 (Left Ventricle) LV 115/15/11, (Aorta) Ao 123/42/70 08:31 AM Time: 08:16 Patient comfortable and pain free: Yes pvannoy 08:31 AM Time: 08:15LOC: 4 = Oriented but drowsy pvannoy 08:32 AM Catheter removed pvannoy 08:33 AM Bolus angiogram of right Femoral complete: 4 ml/sec for a total of 7 mls pvannoy 08:34 AM Procedure completed at 08:34 pvannoy 08:34 AM Sign out completed: Radiation Dose 226.9 mGy Fluoro Time: 2.1 Isovue 370 - 200ml contrast 56 ml given by Harsh Bobby MD, [facility]. Complications: NoneCardiac Rehab Consult needed: NoConfirmed administered medications: Yes pvannoy 08:34 AM Isovue 370 - 200ml,1 Bottle(s) used. pvannoy 08:35 AM Post ECG Sinus Bradycardia pvannoy 08:35 AM HR=53 bpm, HGZL=180/77 mmhg, SpO2=96.0 %, Resp=18 B/min, Comment=Sinus Bear 08:35 AM Post Blood Pressure 157/77 pvannoy 08:35 AM 08:35 Post Pulses Rt DP \\T\\ PT 2+ pvannoy 08:37 AM Information taught Cardiac Cath pvannoy 08:37 AM Learning barriers :None pvannoy 08:37 AM Education Methods Verbal pvannoy 08:37 AM Complications: None pvannoy 08:38 AM Arterial sheath pulled using manual compression for 15 minutes by Sites, Leyda RT (R) pvannoy 08:39 AM Coronary Dominance: right pvannoy 08:40 AM Lesion found in Mid RCA. Pre Stenosis: 40 Pre DAYANARA Flow: 3: Complete and Brisk Flow/Perfusion pvannoy 08:40 AM Lesion found in Distal RCA. Pre Stenosis: 60 Pre DAYANARA Flow: 3: Complete and Brisk Flow/Perfusion pvannoy 08:40 AM HR=58 bpm, IMYR=246/72 mmhg, QdE6=997.0 %, Resp=21 B/min, Comment=Sinus Bear 08:40 AM Lesion found in Proximal Circumflex. Pre Stenosis: 50 Pre DAYANARA Flow: 3: Complete and Brisk Flow/Perfusion pvannoy 08:40 AM Lesion found in 1st Marginal. Pre Stenosis: 30 Pre DAYANARA Flow: 3: Complete and Brisk Flow/Perfusion pvannoy 08:41 AM Right Coronary, Right Posterior Descending Arteries with Right Posterolateral and Acute Marginal branches with 60 % stenosis. pvannoy 08:41 AM Circumflex, Obtuse Marginal, Left Posterior Descending, and Left Posterolateral Coronary Arteries with 50 % stenosis. pvannoy 08:44 AM HR=52 bpm, CMCB=336/69 mmhg, NzZ2=871.0 %, Resp=17 B/min, Comment=Sinus Bear 08:46 AM Time: 08:31LOC: 5 = Fully awake and oriented or at pre-proc level pvannoy 08:46 AM Time: 08:31 Patient comfortable and pain free: Yes pvannoy 08:49 AM HR=59 bpm, ACYB=794/74 mmhg, CaP5=857.0 %, Resp=13 B/min, Comment=Sinus Bear 08:50 AM Site status No bleeding/hematoma - Rt Groin as reported by Sites, Leyda RT (R) at 08:50 pvannoy 08:50 AM Opsite applied pvannoy 08:51 AM Vitals capture stopped. 08:55 AM Report given to Leyda KELLOGG Pt taken to 2N Room #29. 08:55 pvannoy 08:57 AM Family placed in consult room. pvannoy 08:57 AM Patient out of room: 08:57 pvannoy Complications Complication None Hemodynamics Pressures Site Systolic/A Wave Diastolic/V Wave Mean AO 92 49 68 AO 91 48 68 AO 88 50 68 LV 121 13 14 LV 115 15 11 AO 123 42 70 Post Procedure Information Blood Pressure: 157/77 mmHg Rhythm: Sinus Bradycardia Post procedural instructions were given Closure Device Time Device Success/Fail 01/08/2017 8:42:00 AM Manual Compression Successful Site Checks Time Location Status Staff Sheath In? Note 08:50 AM Rt Groin No bleeding/hematoma Sites, Leyda RT (R) Pulses Time Site Pre-Procedure Post-Procedure Note 01/08/2017 8:03:00 AM Bilateral DP \\T\\ PT 2+ 01/08/2017 8:03:00 AM Bilateral radial 2+ 8:35:00 AM Rt DP \\T\\ PT 2+ Updated by Kina Marquez RN on 01/08/2017 9:00:16 AM electronically signed on 01/08/2017 9:00:46 AM with status of Final
--- NOTE | 2017-01-08 10:03 | Event Note ---
Date of Encounter: 01/08/17 Time of Encounter: 10:01 Patient seen and examined after [facility] per Dr. Bobby this morning. LHC revealed small vessel disease. During anesthesia, hr dropped into the 30s. Event note placed last evening by Dr. Kunz, Lindaera page at 03:09am, for AMS , chest pain. Troponin reviewed, EKG negative for acute changes compared to admitting EKG. Patient reports doing well at this time. Reports episode last night where she felt very poorly and was worried her heart wasn't going to start beating again. Patient reports associated chest pain and shortness of breath. Patient had relief of pain following one dose of sublingual nitroglycerin. Exam: Heart: irregularly irregular, bradycardic, no murmurs. Lungs: CTAB, no wheezes, rhonchi, or rales. Abd: normal bowel sounds, Neuro: AxO to person place time and situation, no focal deficits noted, normal gait, normal speech. Patient had breakfast this morning after [facility]. Plan: Pacemaker per Dr. Neville tomorrow. Continue NPO status.
[2017-01-08] MEDS: Insulin LISPRO 300 UNITS/3 ML VIAL SQ SCH ×4 (10:39→22:08)
[2017-01-08] MEDS: Aspirin 81 MG TAB.CHEW PO SCH (10:42)
[2017-01-08] MEDS: Furosemide 20 MG TABLET PO SCH ×2 (10:42→17:41)
[2017-01-08] MEDS: Ranolazine 500 MG TAB.ER.12H PO SCH ×2 (10:42→22:08)
[2017-01-08] MEDS: Anastrozole 1 MG TABLET PO SCH (10:42)
[2017-01-08] MEDS: amLODIPine 5 MG TABLET PO SCH (10:42)
--- NOTE | 2017-01-08 12:49 | Internal Med Progress Note ---
Date of Encounter: 01/08/17 Time of Encounter: 12:47 - Assessment and plan (1) CAD (coronary artery disease) Current Visit: Yes Status: Chronic Assessment and plan: Strong history of coronary artery disease. Cardiology is planning for nuclear stress test. Will follow the recommendation. 01/07/2017 Patient has a persistent chest pain this morning. Responded to nitroglycerin. Noted that this morning patient had a stress test done. Case discussed with the cardiology. Stress test: Reversible inferolateral ischemia. Cardiology discussed findings of stress test with the patient. Patient agreed for cardiac catheterization. Plan for cardiac catheterization tomorrow as per cardiology 01/08/2017 Patient underwent cardiac catheterization today. no stents Were placed. Events from last night noted. Cardiology is aware of the events. Noted that patient is scheduled for pacemaker insertion today at 3 PM. Qualifiers: Coronary Disease-Associated Artery/Lesion type: [place] artery [place] vs. transplanted heart: [place] heart Associated angina: without angina Qualified Code(s): I25.10 - Atherosclerotic heart disease of [place] coronary artery without angina pectoris (2) Elevated troponin Current Visit: No Status: Acute Assessment and plan: Elevated troponin is likely secondary to multifactorial etiology. Plan: Will continue aspirin/beta blockers/statins. Cardiology on the board and we will follow the recommendation (3) COPD (chronic obstructive pulmonary disease) Current Visit: No Status: Chronic Assessment and plan: Stable and we will continue home medication. Qualifiers: COPD type: unspecified COPD Qualified Code(s): J44.9 - Chronic obstructive pulmonary disease, unspecified (4) HTN (hypertension) Current Visit: No Status: Chronic Assessment and plan: Within acceptable limits. Will continue home medications. Qualifiers: Hypertension type: essential hypertension Qualified Code(s): I10 - Essential (primary) hypertension (5) Factor V Leiden Current Visit: Yes Status: Chronic Assessment and plan: Patient is on Coumadin. - Subjective Interval history: Patient seen and examined. Chart reviewed. Patient denies chest pain, shortness of breath, palpitation, dizziness, vomiting and diarrhea. 01/07/2017 Patient seen and examined. Chart reviewed. Patient's at bedside. Patient was complaining of persistent, crushing, retrosternal, nonradiating, localized, chest pain. Patient had a stress test this morning. Patient responded to 4 nitroglycerin sublingually. 01/08/2017 Patient seen and examined. Chart reviewed. Patient just came back from cardiac catheterization. Patient's at bedside. Events from the last night noted. Cardiology is aware of these events. - Constitutional Vitals: Temp Pulse Resp BP Pulse Ox 97.8 F 60 18 156/67 98 01/08/17 12:00 01/08/17 12:00 01/08/17 12:00 01/08/17 12:00 01/08/17 12:00 General appearance: Present: A&O X 3, pleasant, no acute distress, answers questions appropriately - Head Head exam: Present: atraumatic, normocephalic - Eye Eye exam: Present: PERRL, conjuntiva pink, sclera anicteric Pupils: Present: PERRL - Neck Neck exam general surgery: Present: supple, trachea midline. Absent: lymphadenopathy - Respiratory Respiratory exam: Present: CTAB. Absent: accessory muscle use, rales, rhonchi, wheezes - Cardiovascular Cardiovascular exam: Present: RRR, +S1, +S2. Absent: diastolic murmur, gallop, rubs, systolic murmur - GI/Abdominal GI/Abdominal exam: Present: normal bowel sounds, soft, no peritoneal signs. Absent: distended, tenderness - Extremities Exam Extremities exam: Present: warm, radial pulses palpable and symetrical. Absent : calf tenderness, cyanotic, pedal edema - Neurological Exam Neurological exam: Present: CN II-XII intact, oriented X3, no focal deficits. Absent: pronater drift, facial droop, speech deficit - Skin Skin exam: Present: dry, intact Internal Medicine: Result - Labs CBC & Chem 7: 01/06/17 04:19 01/06/17 04:19 Labs: Cardiac Enzymes 01/08/17 Range/Units 03:41 Troponin I 0.05 H* (0-0.03) ng/mL - ABG Interpretation ABG results: ABG ABG pH 7.48 pH Units (7.32-7.45) H 01/08/17 04:00 ABG pCO2 43 mmHg (35-45) 01/08/17 04:00 ABG pO2 62 mmHg (85-104) L 01/08/17 04:00 ABG O2 Saturation 93 % (95-98) L 01/08/17 04:00 PT/INR, D-dimer PT 22.4 Seconds (9.4-12.1) H 01/08/17 03:41 D-Dimer 339 ng/mLFEU (0-500) 01/05/17 14:34 - VTE Reasons for not Prescribing Prophylaxis: Not indicated-Anticoagulated or INR therapeutic Consult Discharge Plan - Plan Referrals: Adalberto Quijano MD [Primary Care Provider] -
--- NOTE | 2017-01-08 19:20 | Electrocardiograph Report ---
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
--- NOTE | 2017-01-08 19:21 | Electrocardiograph Report ---
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
--- NOTE | 2017-01-08 19:22 | Electrocardiograph Report ---
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
--- NOTE | 2017-01-08 19:25 | Electrocardiograph Report ---
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
--- NOTE | 2017-01-08 19:40 | Electrocardiograph Report ---
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
[2017-01-08] MEDS: Melatonin 3 MG TABLET PO SCH (22:08)
[2017-01-09 06:33] LABS: INR 1.9; Prothrombin Time 20.9 Seconds (9.4-12.1)
[2017-01-09] MEDS: amLODIPine 5 MG TABLET PO SCH (10:03)
[2017-01-09] MEDS: Anastrozole 1 MG TABLET PO SCH (10:03)
[2017-01-09] MEDS: Furosemide 20 MG TABLET PO SCH ×2 (10:03→18:23)
[2017-01-09] MEDS: Ranolazine 500 MG TAB.ER.12H PO SCH ×2 (10:03→22:16)
[2017-01-09] MEDS: Aspirin 81 MG TAB.CHEW PO SCH (10:03)
[2017-01-09] MEDS: Insulin LISPRO 300 UNITS/3 ML VIAL SQ SCH ×4 (10:03→22:23)
--- NOTE | 2017-01-09 14:19 | Invasive Diagnostic Lab ---
Name: Miriam Fischer Date of Study: 01/08/2017 Date: 1945 Ht: 147.0 cm /57.9 in Medical Record#: [id number] Age: 71 Wt: 69.3 kg / 152.78 lb Account/Order#: [id number] Gender: Female BSA: 1.62 Order #: [id number] Fluoro Dose: 227 mGy BMI: 32.07 Procedure Physician: Harsh Bobby MD, [facility] Referring MD: Adalberto Quijano MD Referring MD: Procedures Performed: LEFT HEART CATH Indications: Non-Stemi Impressions: There is moderate three vessel coronary artery disease. The left ventricle is normal and has normal contractility EF 55% Sinus bradycardia in the low 30s during procedure Recommendations: Optimal medical therapy of patient's disease. Aggressive risk factor modification. Consider PPM for tachybrady syndrome History/Risk Factors: hx of cancer hx dvt valvular heart dx Diabetes Hypertension Dyslipidemia Cerebrovascular disease Peripheral Vascular Disease Prior [place] Previous PCI Procedure Access obtained in the Femoral artery by percutaneous puncture Complications: None Contrast: Isovue 56ml Closure Device: Manual Compression Hemodynamics: Pressures Site Systolic/ A Wave Diastolic/ V Wave End Diastolic/ Mean HR AO 92 49 68 57 AO 91 48 68 48 AO 88 50 68 60 LV 121 13 14 62 LV 115 15 11 57 AO 123 42 70 54 LV Ventriculography Ejection Method: LV Gram Ejection Fraction: 55% Wall Motion: FLROES Anterobasal Normal Anterolateral Normal Apical: Normal Inferoapical Normal Inferobasal Normal Coronary Dominance: right Lesion Findings/Interventions * Left Main Coronary Artery The LMCA is angiographically free of disease. * Left Anterior Descending The Proximal LAD has patent stents present from a previous procedure. The LAD has mild diffuse disease with probably negative remodeling The 1st Diagonal is angiographically free of significant disease. * Circumflex There is a 50% stenosis in the Proximal Circumflex. The lesion has a DAYANARA flow of 3. This lesion is further described as diffusely diseased. There is a 30% stenosis in the 1st Marginal. The lesion has a DAYANARA flow of 3. This lesion is further described as diffusely diseased. * Right Coronary Artery The Proximal RCA has patent stents present from a previous procedure. The Mid RCA has patent stents present from a previous procedure. There is a 40% stenosis in the Mid RCA. The lesion has a DAYANARA flow of 3. This lesion is further described as diffusely diseased. There is a 60% stenosis in the Distal RCA. The lesion has a DAYANARA flow of 3. This lesion is further described as diffusely diseased. Updated by Kina Marquez RN on 01/08/2017 8:59:52 AM Harsh Bobby MD, FACC electronically signed on 01/09/2017 2:15:14 PM with status of Final
[2017-01-09] MEDS ORDERED: Water for inj. (sterile) 10 ML IV ONE (16:37)
[2017-01-09] MEDS ORDERED: *HR* Midazolam HCl 2 MG/2 ML VIAL ONE (16:37)
[2017-01-09] MEDS ORDERED: *HR* FentaNYL (PF) 100 MCG/2 ML VIAL ONE (16:37)
[2017-01-09] MEDS ORDERED: D5% in Water (Mini-Bag+) 100 ML IVPB ONE (16:38)
[2017-01-09] MEDS ORDERED: 0.9 % Sodium Chloride 500 ML ONE (16:38)
--- NOTE | 2017-01-09 16:49 | Pre-Sedation Evaluation ---
Pre-sedation evaluation - Pre-sedation checklist Date of procedure: 01/09/17 Procedure: pacemaker Recent Vitals: Last Vital Signs Temp 98.7 F 01/09/17 11:48 Pulse 91 01/09/17 16:06 Resp 18 01/09/17 16:06 BP 172/87 01/09/17 16:06 Pulse Ox 96 01/09/17 16:06 H&P (including ROS) documented in medical record: Yes Previous reaction to sedatives/anesthetics: No Dietary Status: NPO after Midnight Airway Assessment: Patient can open mouth completely, TMJ function normal, Micrognathia (under-bite, receding chin) absent, Neck with adequate range of motion Dentition: No loose teeth or bridges Possible difficult airway: No ASA Classification *see protocol: CLASS II-Mild systemic disease Plan of Care: Pt appropriate candidate for procedure/moderate/conscious sedation , Risks/benefits of procedure/sedation discussed w/ patient/family
--- NOTE | 2017-01-09 18:08 | Invasive Diagnostic Lab ---
Dual Chamber Pacemaker Insertion Name: Miriam Fischer Date of Study: 01/09/2017 Date: 1945 Ht: 147.3 cm / 58.0 in Medical Record#: [id number] Age: 71 Wt: 69.0 kg / 152.1 lb Gender: Female BSA: 1.62 Location: Fluoro Dose: 51 mGy BMI: 31.8 Performing MD: Andrew Neville MD, [facility] Procedures Performed: Procedure PM INSERTION DUAL LEADS Indications: Description Sick Sinus Syndrome tachy mikael Impressions: * Successful implant of dual chamber generator. Degree of difficulty was moderate. Appropriate functionality was observed at the end of the case. Procedure completed without incident. Recommendations: The patient will follow-up in 4-6 weeks for a post-pacemaker interrogation and evaluation with their Shaper Machine Hand. Procedure Description: After informed consent was obtained, the patient was brought to the laboratory in the fasting, post absorptive state. The left subclavicular region was prepped and draped in sterile fashion. Local anesthesia was performed using 1% Lidocaine. A 4cm incision was created two fingerbreadths below and parallel to the clavicle and carried down to the prepectoral fascia. At that level, a pocket was created to accomodate and size the hardware. This portion of the procedure used sharp dissection, blunt dissection and electrocautery. Venous access was obtained using a dual axillary vein stick with the modified Seldinger technique using two 7 Fr. Safe sheaths. The right atrial lead was manipulated under direct fluoroscopy to find a physically stable and electrically optimal location in the RA appendage. Next, the right ventricular lead was placed and again manipulated under direct fluoroscopy to find a physically stable electrically optimal location in the RV [place]. Hemostasis was obtained. The pocket was copiously irrigated with antibiotic solution. The device was connected to the leads in standard fashion and set screws deployed. The device was placed in the pocket. No anchoring sutures were placed. The wound was closed in layers starting with 2-0 Vicryl for the deep layer and 4-0 Vicryl for the skin. Steri-Strips were placed and 4x4s secured with tape. The patient tolerated the procedure well. Complications: None Disposition: The patient was returned to the recovery room. Patient will be scheduled to have a follow-up wound check in one week here at [facility]. PPM Device Information: Fingerprint Classifier Model Name Model No. Serial No. Medtronic Margaa genet campoverde [id number] PPM Lead(s) Information: Fingerprint Classifier Model Name Model No. Serial No. Placement Medtronic CapSure Fix Novus 5076-45 [id number] RA appendage Medtronic CapSure Fix Novus 5076-52 [id number] RV [place] Device Measurement Data: Sensing (mV) Threshold (V) / (msec) Impedance (Ohms) Atrial Lead 6.2 1.2 / 0.5 1010 RV Lead 8.3 0.5 / 0.5 550 LV Lead Device Settings: MODE: AAIR <-> DDDR Lower Rate: 60 bpm CHANTELLE Delay: Upper Rate: 130 bpm PAV Delay: Procedure Medications: Time Medication Dose Unit Route 04:26 PM Oxygen 2 L/min nasal cannula 04:42 PM Oxygen 2 L/min nasal cannula 04:42 PM Ancef 1 gram Intravenous 04:47 PM Versed 1 Mg Intravenous 04:47 PM Fentanyl 25 Mcg Intravenous 04:51 PM Lidocaine 2% 10 mL Subcutaneous 04:53 PM Versed 1 Mg Intravenous Contrast: Isovue 0 ml. Complications: No complications occurred during the procedure. Complication None Updated by Andrew Neville MD, FACC on 01/09/2017 6:03:45 PM electronically signed on 01/09/2017 6:04:09 PM with status of Final
--- NOTE | 2017-01-09 18:56 | Internal Med Progress Note ---
Date of Encounter: 01/09/17 Time of Encounter: 18:55 - Assessment and plan (1) CAD (coronary artery disease) Current Visit: Yes Status: Chronic Assessment and plan: Strong history of coronary artery disease. Cardiology is planning for nuclear stress test. Will follow the recommendation. 01/07/2017 Patient has a persistent chest pain this morning. Responded to nitroglycerin. Noted that this morning patient had a stress test done. Case discussed with the cardiology. Stress test: Reversible inferolateral ischemia. Cardiology discussed findings of stress test with the patient. Patient agreed for cardiac catheterization. Plan for cardiac catheterization tomorrow as per cardiology 01/08/2017 Patient underwent cardiac catheterization today. no stents Were placed. Events from last night noted. Cardiology is aware of the events. Noted that patient is scheduled for pacemaker insertion today at 3 PM. 01/09/2017 Patient underwent insertion of pacemaker today. Tolerated the procedure well. No new events last night. Hopefully home tomorrow. Qualifiers: Coronary Disease-Associated Artery/Lesion type: [place] artery [place] vs. transplanted heart: [place] heart Associated angina: without angina Qualified Code(s): I25.10 - Atherosclerotic heart disease of [place] coronary artery without angina pectoris (2) Elevated troponin Current Visit: No Status: Acute Assessment and plan: Elevated troponin is likely secondary to multifactorial etiology. Plan: Will continue aspirin/beta blockers/statins. Cardiology on the board and we will follow the recommendation (3) COPD (chronic obstructive pulmonary disease) Current Visit: No Status: Chronic Assessment and plan: Stable and we will continue home medication. Qualifiers: COPD type: unspecified COPD Qualified Code(s): J44.9 - Chronic obstructive pulmonary disease, unspecified (4) HTN (hypertension) Current Visit: No Status: Chronic Assessment and plan: Within acceptable limits. Will continue home medications. Qualifiers: Hypertension type: essential hypertension Qualified Code(s): I10 - Essential (primary) hypertension (5) Factor V Leiden Current Visit: Yes Status: Chronic Assessment and plan: Patient is on Coumadin. - Subjective Interval history: Patient seen and examined. Chart reviewed. Patient denies chest pain, shortness of breath, palpitation, dizziness, vomiting and diarrhea. 01/07/2017 Patient seen and examined. Chart reviewed. Patient's at bedside. Patient was complaining of persistent, crushing, retrosternal, nonradiating, localized, chest pain. Patient had a stress test this morning. Patient responded to 4 nitroglycerin sublingually. 01/08/2017 Patient seen and examined. Chart reviewed. Patient just came back from cardiac catheterization. Patient's at bedside. Events from the last night noted. Cardiology is aware of these events. 01/09/2017 Seen and examined. Chart reviewed. Patient came back from insertion of pacemaker. She is able to eat well Family at bedside. - Constitutional Vitals: Temp Pulse Resp BP Pulse Ox 98.7 F 59 18 152/74 93 01/09/17 11:48 01/09/17 18:09 01/09/17 18:09 01/09/17 18:09 01/09/17 18:09 General appearance: Present: A&O X 3, pleasant, no acute distress, answers questions appropriately - Head Head exam: Present: atraumatic, normocephalic - Eye Eye exam: Present: PERRL, conjuntiva pink, sclera anicteric Pupils: Present: PERRL - Neck Neck exam general surgery: Present: supple, trachea midline. Absent: lymphadenopathy - Respiratory Respiratory exam: Present: CTAB. Absent: accessory muscle use, rales, rhonchi, wheezes - Cardiovascular Cardiovascular exam: Present: RRR, +S1, +S2. Absent: diastolic murmur, gallop, rubs, systolic murmur - GI/Abdominal GI/Abdominal exam: Present: normal bowel sounds, soft, no peritoneal signs. Absent: distended, tenderness - Extremities Exam Extremities exam: Present: warm, radial pulses palpable and symetrical. Absent : calf tenderness, cyanotic, pedal edema - Neurological Exam Neurological exam: Present: CN II-XII intact, oriented X3, no focal deficits. Absent: pronater drift, facial droop, speech deficit - Skin Skin exam: Present: dry, intact Internal Medicine: Result - Labs CBC & Chem 7: 01/06/17 04:19 01/06/17 04:19 - ABG Interpretation ABG results: ABG ABG pH 7.48 pH Units (7.32-7.45) H 01/08/17 04:00 ABG pCO2 43 mmHg (35-45) 01/08/17 04:00 ABG pO2 62 mmHg (85-104) L 01/08/17 04:00 ABG O2 Saturation 93 % (95-98) L 01/08/17 04:00 PT/INR, D-dimer PT 20.9 Seconds (9.4-12.1) H 01/09/17 05:43 D-Dimer 339 ng/mLFEU (0-500) 01/05/17 14:34 - VTE Reasons for not Prescribing Prophylaxis: Not indicated-Anticoagulated or INR therapeutic Consult Discharge Plan - Plan Referrals: Adalberto Quijano MD [Primary Care Provider] -
[2017-01-09] MEDS: Melatonin 3 MG TABLET PO SCH (22:16)
[2017-01-10] MEDS: ceFAZolin 2,000 MG in D5% in Water 100 ML IVPB SCH ×2 (00:43→09:34)
[2017-01-10] MEDS: *HR* Morphine 2 MG/ML SYRINGE IVP PRN (04:45)
[2017-01-10] MEDS: Nitroglycerin 0.4 MG TAB.SUBL SL PRN (05:38)
[2017-01-10] MEDS ORDERED: Ondansetron 4 MG/2 ML VIAL IVP PRN (05:49)
[2017-01-10] MEDS ORDERED: Ketorolac 30 MG/ML VIAL IVP ONE (05:51)
[2017-01-10 06:26] LABS: Basophils % 0.3 %; Eosinophils # 0.2 K/mcL (0.0-0.6); Eosinophils % 2.6 %; Hematocrit 37.7 % (35.3-44.9); Immature Granulocytes % 0.6 % (0-4); Lymphocytes # 1.1 K/mcL (0.6-4.6); Lymphocytes % 13.8 %; Mean Corpuscular HGB Conc 34.2 g/dL (31.6-35.5); Mean Corpuscular Hemoglobin 26.2 pg (28.0-33.3); Mean Corpuscular Volume 76.5 fL (83.0-100.0); Mean Platelet Volume 10.3 fL (9.4-12.4); Monocytes # 0.6 K/mcL (0.0-1.3); Monocytes % 7.4 %; Neutrophils # 5.9 K/mcL (1.6-8.9); Platelet Count 147 K/mcL (140-400); Red Blood Count 4.93 M/mcL (3.82-4.97); Red Cell Distribution Width 14.9 % (11.5-14.5); Segmented Neutrophils % 75.3 %
[2017-01-10 06:29] LABS: Hemoglobin 12.9 g/dL (11.5-15.4); INR 1.8; Prothrombin Time 19.3 Seconds (9.4-12.1)
[2017-01-10 06:38] LABS: Alanine Aminotransferase 35 Units/L (0-55); Albumin 3.7 g/dL (3.5-5.0); Albumin/Globulin Ratio 1.2 (1.1-2.2); Alkaline Phosphatase 66 Units/L (38-126); Aspartate Amino Transferase 42 Units/L (5-34); BUN/Creatinine Ratio 18 (6-26); Bilirubin,Total 0.5 mg/dL (0.2-1.2); Blood Urea Nitrogen 17 mg/dL (7-20); Calcium 9.8 mg/dL (8.6-10.8); Carbon Dioxide 28 mEq/L (19-29); Chloride 103 mEq/L (98-109); Globulin 3.2 g/dL (2.4-3.5); Glucose 170 mg/dL (70-99); Osmolality,Calculated 298 (280-300); Potassium 3.1 mEq/L (3.5-4.5); Sodium 141 mEq/L (136-145); Total Protein 6.9 g/dL (6.0-8.3); eGFR For African Americans > 60 (> 60); eGFR For Non-African Americans 57 (> 60)
[2017-01-10 07:51] VITALS: BP 85/53
[2017-01-10] MEDS: Insulin LISPRO 300 UNITS/3 ML VIAL SQ SCH ×2 (09:35→11:36)
[2017-01-10] MEDS: amLODIPine 5 MG TABLET PO SCH (09:36)
[2017-01-10] MEDS: Ranolazine 500 MG TAB.ER.12H PO SCH (09:36)
[2017-01-10] MEDS: Anastrozole 1 MG TABLET PO SCH (09:36)
[2017-01-10] MEDS: Furosemide 20 MG TABLET PO SCH (09:36)
[2017-01-10] MEDS: Aspirin 81 MG TAB.CHEW PO SCH (09:36)
--- NOTE | 2017-01-10 10:31 | Cardiology Progress Note ---
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 24 hour tele AVG HR 63, no significant pauses or arrhythmias. CXR okay. [employer] rep called to interrogate device. Steri strips intact. No bleeding or hematoma noted. If interrogation okay, will sign off from cardiology standpoint. Will follow up on device check. BP 80s systolic this AM. Consider adding BB as outpt if BP will tolerate. Follow-up in 7-10 days for wound check, 4-6 weeks device check and [address] Andrew Neville. (2) Atrial fibrillation Current Visit: Yes Status: Chronic Hx of A-Fib on Coumadin. Appears SR/paced on telemetry. Continue coumadin with her hx of CVA and Factor V Leiden. INR 1.8. Will consider adding BB as outpt if BP tolerates. K 3.1 today. Replace. Qualifiers: Atrial fibrillation type: paroxysmal Qualified Code(s): I48.0 - Paroxysmal atrial fibrillation (3) CAD (coronary artery disease) Current Visit: Yes Status: Chronic S/p stent to LAD and stent to RCA in Sep 2016 at [facility]. Abnormal stress test during stay. S/P [facility] 01/08/17. Moderate 3 vessel CAD, no intervention warranted. Continue ASA, Plavix, Statin, nitrates. Currently not on BB due to previous bradycardia, now with PPM. Currently hypotensive and unable to add. Consider BB as outpt. Follow-up with general cardiology in 3-4 weeks. Will coordinate. Qualifiers: Coronary Disease-Associated Artery/Lesion type: morongo artery [place] vs. transplanted heart: morongo heart Associated angina: without angina Qualified Code(s): I25.10 - Atherosclerotic heart disease of mor[place] coronary artery without angina pectoris Discussion w patient/family: The assessment and plan as outlined above was discussed with the patient and/or family members who expressed understanding and agreement. All questions were answered. Thank you for involving us in the care of your patient. Please call with any questions. I will discuss all the above with Dr. Sherwood and make changes as necessary. Subjective Principal diagnosis: Chest pain Interval history: S/P [facility] 01/08/17 with moderate 3 vessel disease without intervention. HR noted to be in 30s during cath and noted to have tachy-mikael with sinus pauses. PPM was recommended. S/P dual chamber PPM yesterday. Pt reports abdominal pain this AM, but denies any cardiac complaints. CXR okay. Objective Vital Signs, Last 4 Hours Temp Pulse Resp BP Pulse Ox 01/10/17 07:50 98.1 F 60 16 85/53 96 Vital Signs Temp Pulse Resp BP Pulse Ox 01/10/17 07:50 98.1 F 60 16 85/53 96 01/10/17 05:41 98.4 F 62 18 115/78 98 01/09/17 22:31 97 01/09/17 20:27 98.7 F 62 15 175/70 97 01/09/17 18:30 86 16 164/89 96 01/09/17 18:09 59 18 152/74 93 01/09/17 16:06 91 18 172/87 96 01/09/17 11:48 98.7 F 61 18 144/63 97 Intake and Output 01/09/17 01/10/17 01/10/17 23:59 07:59 15:59 Intake Total 100 / 100 Balance 100 / 100 Intake: IV Fluids 100 / 100 Ancef 2,000 MG In 100 / 100 Dextrose 5% 100 ML @ 200 mls/hr IVPB Q8HR [facility] Rx#: [id number] Other: Meal Breakfast Percent of Meal Consumed 0% # Voids 1 Blood Glucose* 280 General: Conversant, No Apparent Distress HEENT: Atraumatic, Normocephaly, Mucus Membranes Moist Neck: No JVD, Normal carotid pulses Lungs: Normal Breath Sounds, No Wheeze, Rales, Rhonchi Neuro: Alert and responsive, No focal deficits noted Abdomen: Soft, Non-Tender Skin: Other (left chest device site steri strips intact. No evidence of bleeding or hematoma. ) Musculoskeletal: No Chest Wall Tenderness Extremities: No Clubbing, No Cyanosis, No Edema, Normal Pulses Results 01/10/17 06:10 01/10/17 06:10 Lab Results 01/10/17 01/10/17 01/10/17 06:10 06:10 06:10 WBC 7.8 D Hgb 12.9 D Hct 37.7 Plt Count 147 INR 1.8 Sodium 141 Potassium 3.1 L Chloride 103 Carbon Dioxide 28 BUN 17 Creatinine 0.96 Glucose 170 H Calcium 9.8 Total Bilirubin 0.5 AST 42 H ALT 35 Alkaline Phosphatase 66 Short CBC 01/10/17 Range/Units 06:10 WBC 7.8 D (4.3-11.1) K/mcL Hgb 12.9 D (11.5-15.4) g/dL Hct 37.7 (35.3-44.9) % Plt Count 147 (140-400) K/mcL Neutrophils # 5.9 (1.6-8.9) K/mcL BMP 01/10/17 Range/Units 06:10 Sodium 141 (136-145) mEq/L Potassium 3.1 L (3.5-4.5) mEq/L Chloride 103 (98-109) mEq/L Carbon Dioxide 28 (19-29) mEq/L BUN 17 (7-20) mg/dL Creatinine 0.96 (0.57-1.11) mg/dL Glucose 170 H (70-99) mg/dL Calcium 9.8 (8.6-10.8) mg/dL Liver Function 01/10/17 Range/Units 06:10 Total Bilirubin 0.5 (0.2-1.2) mg/dL AST 42 H (5-34) Units/L ALT 35 (0-55) Units/L Alkaline Phosphatase 66 (38-126) Units/L Albumin 3.7 (3.5-5.0) g/dL Impressions Chest X-Ray 01/09/17 17:54 IMPRESSION: Interval placement of left-sided pacemaker with no pneumothorax. D/ / Rai Forde MD / Rai Forde MD Interpreting Provider: Rai Forde MD Chest X-Ray 01/10/17 06:00 IMPRESSION: No acute cardiopulmonary disease. D/ / 01/10/2017 08:22:33 Wei Shearer MD / ur Interpreting Provider: Wei Shearer MD Active Medications Acetaminophen (Tylenol) 650 mg PO Q6HR PRN PRN Reason: Mild Pain (1-3) Stop: 07/07/17 18:50 Last Admin: 01/09/17 22:20 Dose: 650 mg Amlodipine Besylate (Norvasc) 5 mg PO DAILY [facility] PRN Reason: Protocol Stop: 07/09/17 09:01 Last Admin: 01/10/17 09:36 Dose: Not Given Anastrozole (Arimidex) 1 mg PO DAILY [facility] Stop: 07/08/17 09:01 Last Admin: 01/10/17 09:36 Dose: 1 mg Aspirin (Aspirin) 81 mg PO DAILY [facility] Stop: 07/08/17 09:01 Last Admin: 01/10/17 09:36 Dose: 81 mg Clopidogrel Bisulfate (Plavix) 75 mg PO DAILY [facility] Stop: 07/08/17 09:01 Last Admin: 01/10/17 09:36 Dose: 75 mg Dextrose/Water (Dextrose 50% (Syg)) 25 ml IVP AD PRN PRN Reason: Hypoglycemia Stop: 07/07/17 19:20 Escitalopram Oxalate (Lexapro) 20 mg PO QAM [facility] Stop: 07/08/17 09:01 Last Admin: 01/10/17 09:36 Dose: 20 mg Furosemide (Lasix) 60 mg PO BIDDIURETIC [facility] Stop: 07/08/17 08:01 Last Admin: 01/10/17 09:36 Dose: Not Given Glucagon (Glucagen) 1 mg IM ONCE PRN PRN Reason: Hypoglycemia Stop: 07/07/17 19:20 Glucose (Gluctose) 15 gm PO ONCE PRN PRN Reason: Hypoglycemia Stop: 07/07/17 19:20 Glucose (Gluctose) 30 gm PO ONCE PRN PRN Reason: Hypoglycemia Stop: 07/07/17 19:20 Dextrose (Dextrose 5%) 1,000 mls @ 100 mls/hr IVC .Q10H PRN PRN Reason: HYPOGLYCEMIA Stop: 07/07/17 19:20 Insulin Human Lispro (Humalog) 0 units SQ HS [facility] PRN Reason: Protocol Stop: 07/07/17 21:01 Last Admin: 01/09/17 22:23 Dose: 4 units Insulin Human Lispro (Humalog) 0 units SQ TIDAC [facility] PRN Reason: Protocol Stop: 07/08/17 07:31 Last Admin: 01/10/17 09:35 Dose: Not Given Melatonin (Melatonin) 9 mg PO HS [facility] Stop: 07/08/17 00:16 Last Admin: 01/09/17 22:16 Dose: 9 mg Morphine Sulfate (Morphine Sulfate) 2 mg IVP Q2HR PRN PRN Reason: Severe Pain (7-10) Stop: 07/07/17 18:50 Last Admin: 01/10/17 04:45 Dose: 2 mg Naloxone HCl (Narcan) 0.4 mg IVP Q2MIN PRN PRN Reason: Opioid Reversal Stop: 07/07/17 18:50 Nitroglycerin (Nitroglycerin) 0.4 mg SL Q5MIN PRN PRN Reason: Chest Pain Stop: 07/07/17 18:29 Last Admin: 01/10/17 05:38 Dose: 0.4 mg Omeprazole (Prilosec) 20 mg PO 0630 [facility] Stop: 07/08/17 06:31 Last Admin: 01/10/17 06:23 Dose: 20 mg Ondansetron HCl (Zofran) 4 mg IVP Q6HR PRN; Protocol PRN Reason: Nausea Stop: 07/12/17 05:50 Last Admin: 01/10/17 06:22 Dose: 4 mg Ranolazine (Ranexa) 1,000 mg PO BID [facility] Stop: 07/08/17 09:01 Last Admin: 01/10/17 09:36 Dose: 1,000 mg Rosuvastatin Calcium (Crestor) 40 mg PO QPM [facility] Stop: 07/08/17 18:01 Last Admin: 01/09/17 18:23 Dose: 40 mg - Imaging and Cardiology Echo: report reviewed Cardiac cath: report reviewed - EKG Interpretation EKG results cardiology: other (24 hour tele AVG HR 63, no significant pauses or arrhythmias noted.) - VTE Reasons for not Prescribing Prophylaxis: Not indicated-Anticoagulated or INR therapeutic Consult Discharge Plan - Plan Additional Instructions: ACTIVITY: Moderate activity for the next 7 days. No lifting more than 5 pounds ( gallon of milk) for 4-6 weeks. Avoid lifting your arm on the same side as the device for 4 weeks. BATHING /SHOWERING: Do not remove the large bandage over the site for 2 days. Do not allow the device to get wet for 7-10 days. You may bathe/shower, but do not use soap and water on the site. When bathing, keep the site dry by covering with Saran wrap or a towel. WOUND CARE: The white steri-strips will start to peel away and come off after 14 days, or your doctor will remove them after [address] into or on top of the incision. Do not use cotton swabs. Do not use any antibiotic ointment or Vitamin E on the site. REMINDERS: You may use electrical devices, such as, microwaves, hair dryers, electric razors, electric blankets, etc. as long as they are in good condition and kept 6 -8 inches away from the device. It is recommended to use cell phones on the opposite side of your device. Notify security personnel at the airport that you have a device before you go through airport security screening. When at places with security monitors, such as a grocery store, do not linger near these monitors. It is fine to walk past them in a normal manner. Refer to your owners manual for more specific directions. CARRY YOUR PACEMAKER/ICD CARD WITH YOU AT ALL TIMES Return to work as instructed per physician Resume driving as instructed per physician Keep all scheduled follow up appointments Resume medications as instructed Contact [facility] ( ) if: You develop excessive bleeding from insertion or wound site not controlled by applying pressure You develop a fever greater than 101 degrees Fahrenheit Your incision becomes reddened at or around the site Your incision develops yellowish or greenish drainage or development of white pimple-like bumps You experience excessive pain You develop swelling in your ankles You experience muscle switching You develop excessive hiccupping If you experience chest pain, shortness of breath, dizziness, or extreme tiredness, stop the activity and rest. Please notify [facility] office if you experience any of these symptoms and they are not relieved by rest please call [phone]!RISK FACTORS: STOP SMOKING: If you smoke, STOP. Smoking or tobacco use significantly increases your risk of heart disease because nicotine causes the arteries to narrow or constrict. It also causes fats to stick to the artery. Your chances of having a heart attack are greatly increased if you continue to smoke. For more information, call the education line for smoking cessation 8-157-EXDOGOG EAT A LOW FAT/CHOLESTEROL/SODIUM DIET: This diet may help reduce your chances of having a heart attack. LIFTING: Avoid lifting anything more than 10 pounds for 5-7 days Prior to straining, laughing, sneezing and/or coughing, apply manual pressure directly over insertion site. ACTIVITY: You may walk or climb stairs as tolerated You can resume sexual activity as tolerated In general, you are encouraged to engage in a minimum of 30 minutes or more of moderate intensity physical activity, such as brisk walking, daily or at least 3 -4 times weekly BATHING Do not submerge the site into water (bath tub, hot tub, swimming pool) for 1 week. This can be a source for infection into the blood stream. You may shower after 24 hours SITE CARE: After 24 hours, you may remove the dressing and leave the site open to air. Keep the site clean and dry. Clean gently and pat dry. You can expect bruising and tenderness that gradually resolve within a week or two. Return to work as instructed per your physician Resume driving as instructed per physician Keep all scheduled follow up appointments Resume medications as instructed IMPORTANT: If prescribed a Platelet Aggregation Inhibitor such as, Plavix, Brilinta or Effient: Duration of therapy is minimum one year These medications are often used in combination with Aspirin in prevention of future heart attacks Never discontinue unless consult with your [employer] STROKE (CVA) Risk factors for a stroke are: Age, cigarette smoking, diabetes, excessive alcohol consumption, family history, high blood pressure, overweight, physical inactivity, prior stroke, heart attack, diagnosis of carotid artery stenosis or other artery disease. Warning signs: Sudden numbness or weakness of the face, arm or leg; especially on one side of the body, sudden confusion, trouble speaking or understanding, sudden trouble seeing in one or both eyes, sudden trouble walking, dizziness, loss of balance or coordination, sudden severe headache with no cause. Call 911 or go to the Emergency Room. CONGESTIVE HEART FAILURE: If you have been diagnosed with Congestive Heart Failure (CHF) and your symptoms return, make an appointment with your physician Weigh yourself daily. Notify your physician if you have a weight gain of two or more pounds in one day or five or more pounds in one week. If you experience any difficulty breathing, please call 911 BLEEDING: Although the risk of bleeding is minimal, it can happen. If you have any bleeding from the site, apply firm pressure above the puncture site for 10-15 minutes. If the bleeding does not stop, continue manual pressure and call 911 Contact your physician if: You develop a fever greater than 101 degrees Fahrenheit Your site becomes reddened or has any drainage You have an increase in pain or burning at the site or if a large knot forms at the site. If you experience chest pain, shortness of breath, dizziness, or extreme tiredness, stop the activity and rest. Please notify your physicians office if you experience any of these symptoms and they are not relieved by rest please call 911! Referrals: Adalberto Quijano MD [Primary Care Provider] -
--- NOTE | 2017-01-10 11:43 | Discharge Summary ---
Date of Encounter: 01/10/17 Time of Encounter: 11:38 - Discharge Diagnosis (1) NSTEMI (non-ST elevated myocardial infarction) Priority: Primary Status: Acute (2) CAD (coronary artery disease) Priority: Primary Status: Chronic Qualifiers: Coronary Disease-Associated Artery/Lesion type: [place] artery [place] vs. transplanted heart: [place] heart Associated angina: without angina Qualified Code(s): I25.10 - Atherosclerotic heart disease of [place] coronary artery without angina pectoris (3) Elevated troponin Priority: Primary Status: Acute (4) COPD (chronic obstructive pulmonary disease) Priority: Secondary Status: Chronic Qualifiers: COPD type: unspecified COPD Qualified Code(s): J44.9 - Chronic obstructive pulmonary disease, unspecified (5) HTN (hypertension) Priority: Secondary Status: Chronic Qualifiers: Hypertension type: essential hypertension Qualified Code(s): I10 - Essential (primary) hypertension (6) Factor V Leiden Priority: Secondary Status: Chronic - Discharge Medications Home Medications: Escitalopram [Lexapro] 20 mg PO QAM 05/16/15 [History] Rosuvastatin [Crestor] 40 mg PO QPM 05/16/15 [History] Ranolazine [Ranexa] 1,000 mg PO BID #60 tab.er.12h 08/01/15 [Rx] Warfarin [Coumadin] 1.5 mg PO DAILY 01/15/16 [History] Aspirin 81 mg PO DAILY tab.chew 02/05/16 [Rx] Insulin Glargine,Hum.rec.anlog [Lantus Solostar] 40 unit SQ QPM 07/06/16 [ History] Insulin LISPRO [Humalog] 0 unit SQ TIDWM 07/06/16 [History] Losartan Potassium [Cozaar] 50 mg PO DAILY 07/06/16 [History] Nitroglycerin 0.4 mg SL Q5MIN PRN #0 tab.subl 07/10/16 [Rx] Oxygen 2 l NS AD 08/07/16 [History] Clopidogrel [Plavix] 75 mg PO DAILY #30 tablet 08/15/16 [Rx] Pantoprazole Sodium [Protonix] 40 mg PO DAILY #30 tablet.dr 08/15/16 [Rx] Melatonin 10 mg PO HS 09/19/16 [History] Amlodipine [Norvasc] 5 mg PO DAILY 11/04/16 [History] Anastrozole [Arimidex] 1 mg PO DAILY 11/04/16 [History] Carvedilol 12.5 mg PO BID 11/04/16 [History] Cholecalciferol (D-3) [Vitamin D] 1,000 unit PO DAILY 11/04/16 [History] Isosorbide MONOnitrate [Isosorbide Mononitrate ER] 120 mg PO DAILY 11/04/16 [ History] Furosemide [Lasix] 60 mg PO BID #60 tab 11/06/16 [Rx] Metolazone [Zaroxolyn] 2.5 mg PO WE 01/05/17 [History] Potassium Chloride [K-Tab ER] 20 meq PO BID 01/05/17 [History] Allergies/Adverse Reactions: Allergies phenylbutazone [From Butazolidin] Allergy (Verified 09/07/16 13:54) Rash amitriptyline [From Elavil] Adverse Reaction (Verified 09/07/16 13:54) Headache codeine Adverse Reaction (Verified 09/07/16 13:54) Headache desipramine Adverse Reaction (Verified 09/07/16 13:54) Headache lisinopril Adverse Reaction (Verified 09/07/16 13:54) Cough meperidine [From Demerol] Adverse Reaction (Verified 09/07/16 13:54) Headache nalbuphine Adverse Reaction (Verified 09/07/16 13:54) Headache Nortriptyline Adverse Reaction (Verified 09/07/16 13:54) Headache tiagabine Adverse Reaction (Verified 09/07/16 13:54) Headache Procedures/tests Complete & Pending: Procedures Performed prior 72 hours Category Date Time Status CL Insert Permanent Pacemaker [CL] Routine Irrigation Worker 01/08/17 11:12 Completed Left Heart Cath [CL Cardiac Catheterization] [CL] Irrigation Worker 01/08/17 00:01 Completed Routine ECG 12 lead ECG [ECG] Routine Y 01/07/17 15:11 Completed ECG 12 lead ECG [ECG] Routine Y 01/08/17 03:20 Completed Date of admission: 01/05/17 18:49 Primary care physician: Adalberto Quijano MD Consults: 01/05/17 18:52 Consult to Cardiology [CONS] Routine Comment: Consulting Provider: Cardiology Sandie Reason for Consult: ACS Call Completed: No Discharging clinician: Sanjay Nieves - Patient Status Disposition: Home, Self-Care Condition: Good Functional capacity at discharge: independent ambulation Overall status at discharge: patient is progressing back to baseline - Discharge Instructions Follow Up With: Adalberto Quijano MD [Primary Care Provider] - Charan Chaidez DO [Partnered Physician] - Additional Instructions: ACTIVITY: Moderate activity for the next 7 days. No lifting more than 5 pounds ( gallon of milk) for 4-6 weeks. Avoid lifting your arm on the same side as the device for 4 weeks. BATHING /SHOWERING: Do not remove the large bandage over the site for 2 days. Do not allow the device to get wet for 7-10 days. You may bathe/shower, but do not use soap and water on the site. When bathing, keep the site dry by covering with Saran wrap or a towel. WOUND CARE: The white steri-strips will start to peel away and come off after 14 days, or your doctor will remove them after [address] into or on top of the incision. Do not use cotton swabs. Do not use any antibiotic ointment or Vitamin E on the site. REMINDERS: You may use electrical devices, such as, microwaves, hair dryers, electric razors, electric blankets, etc. as long as they are in good condition and kept 6 -8 inches away from the device. It is recommended to use cell phones on the opposite side of your device. Notify security personnel at the airport that you have a device before you go through airport security screening. When at places with security monitors, such as a grocery store, do not linger near these monitors. It is fine to walk past them in a normal manner. Refer to your owners manual for more specific directions. CARRY YOUR PACEMAKER/ICD CARD WITH YOU AT ALL TIMES Return to work as instructed per physician Resume driving as instructed per physician Keep all scheduled follow up appointments Resume medications as instructed Contact [facility] ( ) if: You develop excessive bleeding from insertion or wound site not controlled by applying pressure You develop a fever greater than 101 degrees Fahrenheit Your incision becomes reddened at or around the site Your incision develops yellowish or greenish drainage or development of white pimple-like bumps You experience excessive pain You develop swelling in your ankles You experience muscle switching You develop excessive hiccupping If you experience chest pain, shortness of breath, dizziness, or extreme tiredness, stop the activity and rest. Please notify [facility] office if you experience any of these symptoms and they are not relieved by rest please call 911!RISK FACTORS: STOP SMOKING: If you smoke, STOP. Smoking or tobacco use significantly increases your risk of heart disease because nicotine causes the arteries to narrow or constrict. It also causes fats to stick to the artery. Your chances of having a heart attack are greatly increased if you continue to smoke. For more information, call the education line for smoking cessation 1-596-OCHWEZR EAT A LOW FAT/CHOLESTEROL/SODIUM DIET: This diet may help reduce your chances of having a heart attack. LIFTING: Avoid lifting anything more than 10 pounds for 5-7 days Prior to straining, laughing, sneezing and/or coughing, apply manual pressure directly over insertion site. ACTIVITY: You may walk or climb stairs as tolerated You can resume sexual activity as tolerated In general, you are encouraged to engage in a minimum of 30 minutes or more of moderate intensity physical activity, such as brisk walking, daily or at least 3 -4 times weekly BATHING Do not submerge the site into water (bath tub, hot tub, swimming pool) for 1 week. This can be a source for infection into the blood stream. You may shower after 24 hours SITE CARE: After 24 hours, you may remove the dressing and leave the site open to air. Keep the site clean and dry. Clean gently and pat dry. You can expect bruising and tenderness that gradually resolve within a week or two. Return to work as instructed per your physician Resume driving as instructed per physician Keep all scheduled follow up appointments Resume medications as instructed IMPORTANT: If prescribed a Platelet Aggregation Inhibitor such as, Plavix, Brilinta or Effient: Duration of therapy is minimum one year These medications are often used in combination with Aspirin in prevention of future heart attacks Never discontinue unless consult with your Peer Health Promoter STROKE (CVA) Risk factors for a stroke are: Age, cigarette smoking, diabetes, excessive alcohol consumption, family history, high blood pressure, overweight, physical inactivity, prior stroke, heart attack, diagnosis of carotid artery stenosis or other artery disease. Warning signs: Sudden numbness or weakness of the face, arm or leg; especially on one side of the body, sudden confusion, trouble speaking or understanding, sudden trouble seeing in one or both eyes, sudden trouble walking, dizziness, loss of balance or coordination, sudden severe headache with no cause. Call 911 or go to the Emergency Room. CONGESTIVE HEART FAILURE: If you have been diagnosed with Congestive Heart Failure (CHF) and your symptoms return, make an appointment with your physician Weigh yourself daily. Notify your physician if you have a weight gain of two or more pounds in one day or five or more pounds in one week. If you experience any difficulty breathing, please call 911 BLEEDING: Although the risk of bleeding is minimal, it can happen. If you have any bleeding from the site, apply firm pressure above the puncture site for 10-15 minutes. If the bleeding does not stop, continue manual pressure and call 911 Contact your physician if: You develop a fever greater than 101 degrees Fahrenheit Your site becomes reddened or has any drainage You have an increase in pain or burning at the site or if a large knot forms at the site. If you experience chest pain, shortness of breath, dizziness, or extreme tiredness, stop the activity and rest. Please notify your physicians office if you experience any of these symptoms and they are not relieved by rest please call 911! - Diet and Activity Activity: increase activity as tolerated Diet: diabetic diet Interval History: Ms. Fischer is a 71 year old female with past medical history significant for coronary disease - status post stent to LAD in the past and stent to RCA in September 2016 diabetes mellitus on insulin, hypertension, CVA 2, factor 5 Leiden , portal vein thrombosis, CK 80, GERD, sleep apnea. She apparently had done midsternal chest pain yesterday, which was relieved with the nitroglycerin. She noticed chest pain began this morning, which felt like an ache with radiation to the jaws and left upper extremity. She continued to have intermittent chest pains, and felt like she had difficulty breathing. She presented to her primary care physicians office, who referred her to the emergency department. She was evaluated in the emergency department and was noted to have troponin of 0.05. She was given aspirin and nitroglycerin. She is admitted to hospitalist service for further management. Hospital course: Patient was hospitalized. She had a persistent chest pain. Troponins were elevated mildly. Cardiology was on the board. She underwent cardiac catheterization. At cardiac catheterization there were no major obstructive changes noted. Patient had a long pause of more than 6 seconds. Patient kept well-hydrated and it was decided to put a permanent pacemaker. Plan: Patient can go home today after she gets evaluation by cardiology. Patient to follow-up with her primary care provider. Patient should follow-up with the cardiology. At the time of discharge all questions addressed. The time of discharge patient does not have any questions, concerns, updated or recommendations. - Time Spent with Patient Total time spent providing and/or coordinating discharge services: - Constitutional Vitals: Temp Pulse Resp BP Pulse Ox 98.1 F 60 16 85/53 96 01/10/17 07:50 01/10/17 07:50 01/10/17 07:50 01/10/17 07:50 01/10/17 07:50 General appearance: Present: A&O X 3, pleasant, no acute distress, answers questions appropriately - Head Head exam: Present: atraumatic, normocephalic - Eye Eye exam: Present: PERRL, conjuntiva pink, sclera anicteric Pupils: Present: PERRL - Neck Neck exam general surgery: Present: supple, trachea midline. Absent: lymphadenopathy - Respiratory Respiratory exam: Present: CTAB. Absent: accessory muscle use, rales, rhonchi, wheezes - Cardiovascular Cardiovascular exam: Present: RRR, +S1, +S2. Absent: diastolic murmur, gallop, rubs, systolic murmur - GI/Abdominal GI/Abdominal exam: Present: normal bowel sounds, soft, no peritoneal signs. Absent: distended, tenderness - Extremities Exam Extremities exam: Present: warm, radial pulses palpable and symetrical. Absent : calf tenderness, cyanotic, pedal edema - Neurological Exam Neurological exam: Present: CN II-XII intact, oriented X3, no focal deficits. Absent: pronater drift, facial droop, speech deficit - Skin Skin exam: Present: dry, intact - VTE Reasons for not Prescribing Prophylaxis: Not indicated-Anticoagulated or INR therapeutic
--- NOTE | 2017-01-12 09:03 | Electrocardiograph Report ---
[place] [id number] Test Date: 2017-01-10 Pat Name: Miriam Fischer Department: 111 Room: [id number] Gender: F Senior Medical Writer: ERNIE : 1945 Requested By: Sanjay Nieves Order Number: [id number] Reading MD: Harsh Bobby MD Measurements Intervals [place] Rate: 74 P: 73 [place]: 185 QRS: -10 QRSD: 102 T: 42 QT: 449 QTc: 476 Interpretive Statements SINUS RHYTHM BASELINE ARTIFACT Electronically Signed On 01-12-2017 9:02:00 EDT by Harsh Bobby MD
== END 2017-01-10 12:59 | disposition home or self-care (01) | DRG 242 ==
LOC: EMEROO 13:42 → 2NENU 13:42 → SUATTDRO 18:49
PROVIDERS: ADMIT Hospitalist; ATTEND Internal Medicine

== ENCOUNTER 2017-01-24 10:38 | Observation (INO) ==
--- NOTE | 2017-01-24 11:24 | Emergency Department Note ---
Disposition Clinical Impression: Chest pain Qualifiers: Chest pain type: unspecified Qualified Code(s): R07.9 - Chest pain, unspecified Disposition: Admitted As Inpatient Condition: Good Referrals: Adalberto Quijano MD [Primary Care Provider] - Forms: ED Satisfaction Letter Time of Disposition: 14:57 Extremity Problem HPI - General Chief complaint: ED Extremity Problem,Nontraumatic Stated complaint: "swollen lymphnode pain in left shoulder" Time Seen by Provider: 01/24/17 11:02 Source: patient Mode of arrival: ambulatory Limitations: no limitations Nursing Notes Reviewed: Yes Vital Signs Reviewed: Yes - History of Present Illness HPI Narrative: 71-year-old female presents with chief complaint of left shoulder bursitis. She states over the last 2 days she has had worsening of diffuse left shoulder pain that is exactly the same as prior episodes of shoulder bursitis which she has been dealing with for the last 60 years. She denies any inciting injury. She denies any fever or chills, nausea or vomiting. She states that these symptoms typically resolve after oral steroids, but sometimes require joint injection of the shoulder. She does note that she has a swollen supraclavicular lymph node which is not abnormal for her with episodes of bursitis. She went to urgent care today to be evaluated, they sent her here because she is to weeks postop status post pacemaker placement for sick sinus. She denies any drainage, pain, or swelling to the pacemaker site. She denies any chest pain or shortness of breath. Symptoms are worse with range of motion of the left shoulder. Improved with rest. Pt Subjective Complaint: joint paint Pain Scale: 5 - Related Data Home Medications Medication Instructions Recorded Confirmed Escitalopram [Lexapro] 20 mg PO QAM 05/16/15 01/05/17 Rosuvastatin [Crestor] 40 mg PO QPM 05/16/15 01/05/17 Warfarin [Coumadin] 1.5 mg PO DAILY 01/15/16 01/05/17 Insulin Glargine,Hum.rec.anlog 40 unit SQ QPM 07/06/16 01/05/17 [Lantus Solostar] Insulin LISPRO [Humalog] 0 unit SQ TIDWM 07/06/16 01/05/17 Losartan Potassium [Cozaar] 50 mg PO DAILY 07/06/16 01/05/17 Oxygen 2 l NS AD 08/07/16 01/05/17 Melatonin 10 mg PO HS 09/19/16 01/05/17 Anastrozole [Arimidex] 1 mg PO DAILY 11/04/16 01/05/17 Carvedilol 12.5 mg PO BID 11/04/16 01/05/17 Cholecalciferol (D-3) [Vitamin D] 1,000 unit PO DAILY 11/04/16 01/05/17 Isosorbide MONOnitrate [Isosorbide 120 mg PO DAILY 11/04/16 01/05/17 Mononitrate ER] amLODIPine [Norvasc] 5 mg PO DAILY 11/04/16 01/05/17 Potassium Chloride [K-Tab ER] 20 meq PO BID 01/05/17 01/05/17 metOLazone [Zaroxolyn] 2.5 mg PO WE 01/05/17 01/05/17 Previous Rx's Medication Instructions Recorded Ranolazine [Ranexa] 1,000 mg PO BID #60 tab.er.12h 08/01/15 Aspirin 81 mg PO DAILY tab.chew 02/05/16 Nitroglycerin 0.4 mg SL Q5MIN PRN #0 tab.subl 07/10/16 Clopidogrel [Plavix] 75 mg PO DAILY #30 tablet 08/15/16 Pantoprazole Sodium [Protonix] 40 mg PO DAILY #30 tablet.dr 08/15/16 Furosemide [Lasix] 60 mg PO BID #60 tab 11/06/16 Allergies Allergy/AdvReac Type Severity Reaction Status Date / Time phenylbutazone Allergy Rash Verified 09/07/16 13:54 [From Butazolidin] amitriptyline [From Elavil] AdvReac Headache Verified 09/07/16 13:54 codeine AdvReac Headache Verified 09/07/16 13:54 desipramine AdvReac Headache Verified 09/07/16 13:54 lisinopril AdvReac Cough Verified 09/07/16 13:54 meperidine [From Demerol] AdvReac Headache Verified 09/07/16 13:54 nalbuphine AdvReac Headache Verified 09/07/16 13:54 Nortriptyline AdvReac Headache Verified 09/07/16 13:54 tiagabine AdvReac Headache Verified 12/25/16 13:54 All systems ED: reviewed and negative except as stated. Past Medical History - Past Medical History Attestation: Yes The following information was validated with the patient. Source: patient Medical history: Reports: arthritis, atrial fibrillation, cancer, CHF, coronary artery disease, CVA, DVT, diabetes, GERD, hyperlipidemia, hypertension, myocardial infarction, osteoporosis, peripheral artery disease, renal disease, TIA, valvular heart disease, other Surgical history: Reports: angioplasty/stent, breast surgery, carotid endarterectomy, cholecystectomy, orthopedic, other, other Psychiatric history: Reports: depression CLINICAL SOCIAL WORKER history: Reports: no CLINICAL SOCIAL WORKER history - Social History Smoking Status: Never smoker Smokeless Tobacco Status: No Alcohol use: Reports: rarely Drug use: Reports: none Physical Exam - Head Head exam: atraumatic, normocephalic, normal inspection - Eye Eye exam: Present: normal appearance, PERRL, EOMI - ENT ENT exam: normal exam, normal oropharynx, mucous membranes moist - Neck Neck exam: Present: normal inspection, full ROM, trachea midline - Chest Pacemaker site has no signs of infection. Incision is clean dry and intact. There is no warmth. There is a tender supraclavicular lymph node on the left. - Respiratory Respiratory exam: Clear to auscultation bilaterally without wheezes rales or rhonchi Cardiovascular Cardiovascular exam: Present: regular rate, normal rhythm, normal heart sounds - Abdominal Exam Abdominal exam: Present: soft, Non-Tender. Absent: tenderness, distention, guarding, rebound, rigidity - Extremities Exam There is diffuse mild tenderness to the left shoulder without significant warmth. No deformity. Full range of motion. Normal strength. - Back Exam Back exam: Present: normal inspection, full ROM. Absent: tenderness, CVA tenderness (R), CVA tenderness (L) - Neurological Exam Neurological exam: Present: alert, oriented X3, CN II-XII intact - Psychiatric Psychiatric exam: Present: normal affect, normal mood - Skin Skin exam: Present: warm, dry, intact, normal color - General Limitations: no limitations General appearance: alert Course - Reevaluation(s) Reevaluation #1: Initial troponin was elevated to 0.05. This is stable from prior troponins.. She received nitroglycerin without significant improvement of her pain, but did have resolution of her pain after morphine. Given her extensive cardiac history including multiple stents and sick sinus syndrome we recommended admission for the patient. Initially, she declined stating that she did not want to be admitted and there was consideration to repeat a troponin, but finally the patient did change her mind and stated that she wanted to be admitted. Accepted by Dr. Parker Time: 14:59 Vital Signs Temperature 98.2 F 01/24/17 10:41 Pulse Rate 81 01/24/17 10:41 Respiratory Rate 16 01/24/17 10:41 Blood Pressure 159/84 01/24/17 10:41 O2 Sat by Pulse Oximetry 98 01/24/17 10:41 Temperature 97.2 F L 01/24/17 13:00 Pulse Rate 88 01/24/17 13:00 Respiratory Rate 18 01/24/17 13:00 Blood Pressure 139/90 01/24/17 13:00 O2 Sat by Pulse Oximetry 97 01/24/17 13:00 Oxygen Delivery Oxygen Delivery Room Air Extremity Problem, Nontraumati - Lab Data Result diagrams: 01/24/17 12:01 01/24/17 12:01 Lab Results 01/24/17 01/24/17 01/24/17 Range/Units 12:01 12:01 12:01 WBC 7.9 (4.3-11.1) K/mcL RBC 4.52 (3.82-4.97) M/mcL Hgb 11.7 (11.5-15.4) g/dL Hct 35.0 L (35.3-44.9) % MCV 77.4 L (83.0-100.0) fL MCH 25.9 L (28.0-33.3) pg MCHC 33.4 (31.6-35.5) g/dL RDW 15.3 H (11.5-14.5) % Plt Count 172 (140-400) K/mcL MPV 10.4 (9.4-12.4) fL Immature Gran % 0.3 (0-4) % Seg Neutrophils % 75.4 % Lymphocytes % 14.6 % Monocytes % 6.5 % Eosinophils % 2.8 % Basophils % 0.4 % Neutrophils # 6.0 (1.6-8.9) K/mcL Lymphocytes # 1.2 (0.6-4.6) K/mcL Monocytes # 0.5 (0.0-1.3) K/mcL Eosinophils # 0.2 (0.0-0.6) K/mcL Basophils # 0.0 (0.0-0.2) K/mcL PT 40.5 H (9.4-12.1) Seconds INR 3.6 APTT 37.5 H (26.0-36.0) Seconds Sodium (136-145) mEq/L Potassium (3.5-4.5) mEq/L Chloride (98-109) mEq/L Carbon Dioxide (19-29) mEq/L BUN (7-20) mg/dL Creatinine (0.57-1.11) mg/dL Est GFR ( Amer) (> 60) Est GFR (Non-Af Amer) (> 60) BUN/Creatinine Ratio (6-26) Glucose (70-99) mg/dL Calculated Osmolality (280-300) Calcium (8.6-10.8) mg/dL Troponin I (0-0.03) ng/mL B-Natriuretic Peptide 202 H (0-100) pg/mL 01/24/17 01/24/17 Range/Units 12:01 12:01 WBC (4.3-11.1) K/mcL RBC (3.82-4.97) M/mcL Hgb (11.5-15.4) g/dL Hct (35.3-44.9) % MCV (83.0-100.0) fL MCH (28.0-33.3) pg MCHC (31.6-35.5) g/dL RDW (11.5-14.5) % Plt Count (140-400) K/mcL MPV (9.4-12.4) fL Immature Gran % (0-4) % Seg Neutrophils % % Lymphocytes % % Monocytes % % Eosinophils % % Basophils % % Neutrophils # (1.6-8.9) K/mcL Lymphocytes # (0.6-4.6) K/mcL Monocytes # (0.0-1.3) K/mcL Eosinophils # (0.0-0.6) K/mcL Basophils # (0.0-0.2) K/mcL PT (9.4-12.1) Seconds INR APTT (26.0-36.0) Seconds Sodium 137 (136-145) mEq/L Potassium 2.9 L (3.5-4.5) mEq/L Chloride 94 L (98-109) mEq/L Carbon Dioxide 30 H (19-29) mEq/L BUN 43 H (7-20) mg/dL Creatinine 1.37 H (0.57-1.11) mg/dL Est GFR ( Amer) 46 L (> 60) Est GFR (Non-Af Amer) 38 L (> 60) BUN/Creatinine Ratio 31 H (6-26) Glucose 259 H (70-99) mg/dL Calculated Osmolality 304 H (280-300) Calcium 9.8 (8.6-10.8) mg/dL Troponin I 0.05 H* (0-0.03) ng/mL B-Natriuretic Peptide (0-100) pg/mL - EKG Data EKG attestation: Yes I reviewed and interpreted this EKG. EKG results narrative: Normal sinus rhythm at 66 with first-degree AV block with AK of 232. No ST elevation or depression. There is lateral T-wave flattening that is mild and unchanged from 01/10/2017. Attestation Statement - Attestation Attestation: I personally interviewed and examined this patient and my medical decision- making was reviewed with the ED Resident Physician, Dr. Bonilla. I agree with the documented findings, disposition and treatment plan as described except to the extent set forth below. Patient is a 71-year-old white female with extensive cardiac history including recent left heart catheter followed by pacemaker placement for sick sinus syndrome 2 weeks ago, on Coumadin for atrial fibrillation, and a history of CHF and prior AL. Patient presents with one to 2 day history of left shoulder pain that she describes as "my bursitis flaring up", but patient describes the pain as radiating up into her neck and left jaw line. Patient also complained of a bump on the left side of her neck which on evaluation here to be a palpable lymph node on the left but is symmetrical with the lymph nodes on the right. There is no overlying skin changes or visible swelling to the left side of her neck. Patient denies any actual chest pain heaviness or discomfort, no shortness of breath, no diaphoresis, no nausea vomiting. Pt is hemodynamically stable. No significant change in EKG compared to prior. And administered aspirin and nitroglycerin on arrival, patient with no change in her symptoms following nitroglycerin trial. Morphine's been ordered for pain. Obtain labs and chest imaging. Chest x-ray within normal limits shows no pulmonary edema, heart size normal. Labs show an elevated troponin at 0.05, this was compared to her prior troponin levels which the last 5 benefit 0.05 so no change from prior at this time. Patient with a low potassium at 2.9 we will replace orally. We did discuss with the patient our concerns about her symptoms being atypical angina and the desire to admit her for further evaluation by cardiology. At this time patient is hesitant on admission and she has been in the hospital so much recently so we will reassess the patient following potassium administration and morphine, reassess her left shoulder pain and symptoms. Recommend admission considering patient's extensive cardiac history and still elevated troponin. Patient agrees with admission. Patient's vital signs stable at this time and no change in her level of pain.
[2017-01-24] MEDS: Aspirin 81 MG TAB.CHEW PO ONE (11:45)
[2017-01-24] MEDS: Nitroglycerin 0.4 MG TAB.SUBL SL ONE (11:58)
[2017-01-24 12:16] LABS: Basophils % 0.4 %; Eosinophils # 0.2 K/mcL (0.0-0.6); Eosinophils % 2.8 %; Hemoglobin 11.7 g/dL (11.5-15.4); Immature Granulocytes % 0.3 % (0-4); Lymphocytes # 1.2 K/mcL (0.6-4.6); Lymphocytes % 14.6 %; Mean Corpuscular HGB Conc 33.4 g/dL (31.6-35.5); Mean Corpuscular Hemoglobin 25.9 pg (28.0-33.3); Mean Corpuscular Volume 77.4 fL (83.0-100.0); Mean Platelet Volume 10.4 fL (9.4-12.4); Monocytes # 0.5 K/mcL (0.0-1.3); Monocytes % 6.5 %; Platelet Count 172 K/mcL (140-400); Red Blood Count 4.52 M/mcL (3.82-4.97); Red Cell Distribution Width 15.3 % (11.5-14.5); Segmented Neutrophils % 75.4 %
[2017-01-24 12:27] LABS: INR 3.6; Prothrombin Time 40.5 Seconds (9.4-12.1)
[2017-01-24 12:30] LABS: Activated Partial Thrombo Time 37.5 Seconds (26.0-36.0)
[2017-01-24 12:33] LABS: Calcium 9.8 mg/dL (8.6-10.8); Potassium 2.9 mEq/L (3.5-4.5)
[2017-01-24] MEDS ORDERED: *HR* Morphine 2 MG/ML SYRINGE IVP ONE ×2 (12:52→16:43)
[2017-01-24] MEDS ORDERED: Ondansetron 4 MG/2 ML VIAL IVP ONE (12:53)
[2017-01-24] MEDS ORDERED: *HR* Heparin 5,000 UNIT/ML VIAL IVP ONE (15:28)
[2017-01-24] MEDS ORDERED: *HR* Heparin 5,000 UNIT/ML VIAL IVP PRN ×2 (15:28)
[2017-01-24] MEDS ORDERED: Heparin 25,000 UNIT/500 ML D5W 25,000 UNIT/500 ML MLS IVC SCH (15:30)
[2017-01-24] MEDS: Nitroglycerin 0.4 MG TAB.SUBL SL PRN ×3 (15:35→16:06)
[2017-01-24 16:09] LABS: Hematocrit 39.5 % (35.3-44.9); Mean Corpuscular HGB Conc 33.7 g/dL (31.6-35.5); Mean Corpuscular Hemoglobin 25.9 pg (28.0-33.3); Mean Corpuscular Volume 76.8 fL (83.0-100.0); Mean Platelet Volume 10.4 fL (9.4-12.4); Platelet Count 200 K/mcL (140-400); Red Blood Count 5.14 M/mcL (3.82-4.97); Red Cell Distribution Width 15.2 % (11.5-14.5)
[2017-01-24 16:11] LABS: Hemoglobin 13.3 g/dL (11.5-15.4)
[2017-01-24] MEDS ORDERED: Naloxone 0.4 MG/ML INJ IVP PRN (16:11)
[2017-01-24] MEDS ORDERED: Ondansetron 4 MG/2 ML VIAL IVP PRN (16:11)
[2017-01-24] MEDS ORDERED: Acetaminophen 325 MG TABLET PO PRN (16:11)
[2017-01-24] MEDS ORDERED: Mag Hydrox/Al Hydrox/Simeth 30 ML UDC PO PRN (16:11)
[2017-01-24] MEDS ORDERED: MOM Conc 10 ML UD.LIQ PO PRN (16:11)
[2017-01-24] MEDS ORDERED: *HR* Morphine 2 MG/ML SYRINGE IVP PRN (16:16)
[2017-01-24 16:18] LABS: INR 3.5; Prothrombin Time 39.1 Seconds (9.4-12.1)
[2017-01-24 16:21] LABS: Activated Partial Thrombo Time 38.4 Seconds (26.0-36.0)
[2017-01-24] MEDS ORDERED: *HR* Dextrose 50 % in Water (Syg) 50 ML SYRINGE IVP PRN (16:21)
[2017-01-24] MEDS ORDERED: D5% in Water 1,000 ML IVC PRN (16:21)
[2017-01-24] MEDS ORDERED: Dextrose Gel 15 GM PO PRN ×2 (16:21)
[2017-01-24] MEDS ORDERED: Nitroglycerin 1 INCH/GM PACKET TP ONE (16:43)
[2017-01-24 18:00] LABS: Hemoglobin A1C 6.6 %
[2017-01-24] MEDS ORDERED: Nitroglycerin 25 MG/250 ML INFUS..BTL IVC SCH (18:00)
--- NOTE | 2017-01-24 18:00 | Internal Med History&Physical ---
Date of Encounter: 01/24/17 Time of Encounter: 17:55 Assessment and Plan (1) Chest pain Current visit: Yes Status: Acute Pt with hx of coronary disease. Stent 09/2016. Still with some discomfort. Will start nitro drip. Heparin started in ED but patient is supratherapeutic on coumadin (INR 3.5) so will d/c. Cycle troponin. NPO after midnight. Cardiology evaluation (called in ED). Ms. Fischer is current high risk due to potential for worsening cardiac status. She has significant history of previous complications. Qualifiers: Chest pain type: chest pain due to myocardial ischemia Ischemic chest pain type: unstable angina pectoris Qualified Code(s): I20.0 - Unstable angina (2) CAD (coronary artery disease) Current visit: Yes Status: Chronic As above Qualifiers: Coronary Disease-Associated Artery/Lesion type: [place] artery [place] vs. transplanted heart: [place] heart Associated angina: without angina Qualified Code(s): I25.10 - Atherosclerotic heart disease of [place] coronary artery without angina pectoris (3) Hypokalemia Current visit: Yes Status: Acute Given PO potassium in ED. will recheck tonight and replace if needed. (4) Diabetes Current visit: No Status: Chronic Follow blood sugars and cover. Qualifiers: Diabetes mellitus type: type 1 Diabetes mellitus complication status: with kidney complications Diabetes mellitus complication detail: with chronic kidney disease Chronic kidney disease stage: stage 3 (moderate) Qualified Code(s): E10.22 - Type 1 diabetes mellitus with diabetic chronic kidney disease ; N18.3 - Chronic kidney disease, stage 3 (moderate) (5) COPD (chronic obstructive pulmonary disease) Current visit: No Status: Chronic Follow Qualifiers: COPD type: unspecified COPD Qualified Code(s): J44.9 - Chronic obstructive pulmonary disease, unspecified (6) HTN (hypertension) Current visit: No Status: Chronic Follow Qualifiers: Hypertension type: essential hypertension Qualified Code(s): I10 - Essential (primary) hypertension (7) Pacemaker Current visit: Yes Status: Acute Recent placement 2 weeks ago. Internal Medicine - H&P: HPI Chief complaint: L shoulder pain Admitted From: Emergency Dept Plans for Post Hospital Care: Home History of present illness: Ms. Fischer is a 71 year old female with significant cardiac history presented to ED with L shoulder pain. Pt recently had pacer placed about 2 weeks ago. She has [facility] over the last year. Today she was experiencing L shoulder pain consistent with prior episodes of bursitis. It was not improving with conservative measures so she went to urgent care and was sent to ED. She underwent evaluation in ED and during that time developed substernal chest discomfort with changes in her EKG. At that time cardiology was called and she was placed on heparin drip and placed in observation. She denies associated symptoms of diaphoresis, nausea or dyspnea. She has prior hx of pulmonary edema which improved after cardiac stent placement in 2016. At this time she still has some substernal heaviness and discomfort in shoulder. She is eating dinner. Past Med Surg Social Fam HX - Past Medical History Attestation: Yes The following information was validated with the patient. Source: patient Medical history: arthritis, atrial fibrillation, cancer, CHF, coronary artery disease, CVA, diabetes, GERD, hyperlipidemia, hypertension, myocardial infarction, osteoporosis, peripheral artery disease, renal disease, TIA, valvular heart disease Psychiatric history: depression - Past Surgical History Surgical History: angioplasty/stent, breast surgery, carotid endarterectomy, cholecystectomy, orthopedic, other, pacemaker - Social History Smoking Status: Never smoker Smokeless Tobacco Status: No Alcohol use: rarely Drug use: none Current living situation: Home - Independent Recent Out of Country Travel Within the Last 8 Weeks: No Exposure or Possible Exposure to Illness During Travel: No - Family History Father Adopted: No Family Member Ethnicity: Non- Living Status: Hx Family Cardiac Disorders: Yes Hx Family Respiratory Disorders: No Hx Family Cancer: No Hx Family GI Disorders: No Hx Family Endocrine Disorder: Yes Hx Family Neuromuscular Disorders: No Hx Family Neurologic Disorders: Yes Hx Family HEENT Disorders: No Hx Family Autoimmune Disorders: Yes Mother Family Member Ethnicity: Non- Living Status: Hx Family Cardiac Disorders: Yes Hx Family Respiratory Disorders: No Hx Family Cancer: Yes Hx Family GI Disorders: No Hx Family Endocrine Disorder: Yes Hx Family Neuromuscular Disorders: No Hx Family Neurologic Disorders: No Hx Family HEENT Disorders: No Hx Family Autoimmune Disorders: Yes (RA) Sister Adopted: No Living Status: Still Living Hx Family Cardiac Disorders: Yes Hx Family Respiratory Disorders: No Hx Family Cancer: No Hx Family GI Disorders: No Hx Family Endocrine Disorder: Yes Hx Family Neuromuscular Disorders: No Hx Family Neurologic Disorders: Yes Hx Family HEENT Disorders: No Hx Family Autoimmune Disorders: No Brother Adopted: No Living Status: Still Living Hx Family Cardiac Disorders: Yes Hx Family Respiratory Disorders: No Hx Family Cancer: No Hx Family GI Disorders: No Hx Family Endocrine Disorder: No Hx Family Neuromuscular Disorders: No Hx Family Neurologic Disorders: No Hx Family HEENT Disorders: No Hx Family Autoimmune Disorders: No Internal Medicine - H&P: Meds Escitalopram [Lexapro] 20 mg PO QAM 05/16/15 [History] Rosuvastatin [Crestor] 40 mg PO QPM 05/16/15 [History] Ranolazine [Ranexa] 1,000 mg PO BID #60 tab.er.12h 08/01/15 [Rx] Warfarin [Coumadin] 1.5 mg PO DAILY 01/15/16 [History] Aspirin 81 mg PO DAILY tab.chew 02/05/16 [Rx] Insulin Glargine,Hum.rec.anlog [Lantus Solostar] 40 unit SQ QPM 07/06/16 [ History] Insulin LISPRO [Humalog] 2 - 10 unit SQ TIDWM 07/06/16 [History] Losartan Potassium [Cozaar] 50 mg PO DAILY 07/06/16 [History] Nitroglycerin 0.4 mg SL Q5MIN PRN #0 tab.subl 07/10/16 [Rx] Oxygen 2 l NS AD 08/07/16 [History] Clopidogrel [Plavix] 75 mg PO DAILY #30 tablet 08/15/16 [Rx] Pantoprazole Sodium [Protonix] 40 mg PO DAILY #30 tablet.dr 08/15/16 [Rx] Melatonin 10 mg PO HS 09/19/16 [History] Anastrozole [Arimidex] 1 mg PO DAILY 11/04/16 [History] Carvedilol 12.5 mg PO BID 11/04/16 [History] Cholecalciferol (D-3) [Vitamin D] 1,000 unit PO DAILY 11/04/16 [History] Isosorbide MONOnitrate [Isosorbide Mononitrate ER] 120 mg PO DAILY 11/04/16 [ History] amLODIPine [Norvasc] 5 mg PO DAILY 11/04/16 [History] Furosemide [Lasix] 60 mg PO BID #60 tab 11/06/16 [Rx] Potassium Chloride [K-Tab ER] 20 meq PO BID 01/05/17 [History] metOLazone [Zaroxolyn] 2.5 mg PO WE 01/05/17 [History] Allergies phenylbutazone [From Butazolidin] Allergy (Verified 09/07/16 13:54) Rash amitriptyline [From Elavil] Adverse Reaction (Verified 09/07/16 13:54) Headache codeine Adverse Reaction (Verified 09/07/16 13:54) Headache desipramine Adverse Reaction (Verified 09/07/16 13:54) Headache lisinopril Adverse Reaction (Verified 09/07/16 13:54) Cough meperidine [From Demerol] Adverse Reaction (Verified 09/07/16 13:54) Headache nalbuphine Adverse Reaction (Verified 09/07/16 13:54) Headache Nortriptyline Adverse Reaction (Verified 09/07/16 13:54) Headache tiagabine Adverse Reaction (Verified 09/07/16 13:54) Headache All Systems PM: A 10-system review of systems was performed and is negative for pertinent findings except as documented above in the HPI. - Constitutional Constitutional: as per HPI, no chills, no fatigue, no lethargy - EENT Eyes: as per HPI, no change in vision, no loss of vision Ears: no decreased hearing, no ear pain Nose, mouth and throat: no dysphagia, no mouth pain, no neck pain - Cardiovascular Cardiovascular ROS IM: chest pain, no irregular heart rhythm, no lightheadedness , no orthopnea - Respiratory Respiratory: no cough, no dyspnea, no wheezing, no chest congestion - Gastrointestinal Gastrointestinal: no constipation, no diarrhea, no dyspepsia - Genitourinary Genitourinary: no urinary frequency, no urinary incontinence - Musculoskeletal Musculoskeletal ROS IM: stiffness Additional comments: Has discomfort in L shoulder and history of bursitis. - Integumentary Integumentary IM: no erythema, no non-healing lesions, no rash - Neurological Neurological ROS: no convulsions, no disequilibrium, no dizziness, no numbness - Endocrine Endocrine IM: no cold intolerance, no excessive sweating, no flushing - Hematologic/Lymphatic Hematologic/Lymphatic: easy bleeding (Coumadin), easy bruising - Allergic/Immunologic Allergic/Immunologic: no itchy eyes, no wheezing - Constitutional Vitals: Temp Pulse Resp BP Pulse Ox 98.0 F 62 18 129/55 96 01/24/17 17:36 01/24/17 17:36 01/24/17 17:36 01/24/17 17:36 01/24/17 17:36 General appearance: Present: A&O X 3, pleasant, answers questions appropriately - Head Head exam: Present: normocephalic - Eye Eye exam: Present: conjuntiva pink - ENT ENT exam: Present: mucous membranes moist - Respiratory Respiratory exam: Present: CTAB. Absent: rales, rhonchi, wheezes - Cardiovascular Cardiovascular exam: Present: distant heart sounds, RRR. Absent: tachycardia - GI/Abdominal GI/Abdominal exam: Present: soft. Absent: mass, tenderness - Extremities Exam Extremities exam: Present: warm. Absent: pedal edema - Neurological Exam Neurological exam: Present: alert, oriented X3. Absent: facial droop, speech deficit - Psychiatric Psychiatric exam: Present: normal affect, normal mood - Skin Skin exam: Present: dry, warm. Absent: rash Internal Med - H&P Results - Labs CBC & Chem 7: 01/24/17 15:54 01/24/17 12:01 Labs: Short CBC 01/24/17 Range/Units 15:54 WBC 7.4 (4.3-11.1) K/mcL Hgb 13.3 D (11.5-15.4) g/dL Hct 39.5 (35.3-44.9) % Plt Count 200 (140-400) K/mcL Cardiac Enzymes 01/24/17 Range/Units 15:54 Troponin I 0.06 H* (0-0.03) ng/mL
[2017-01-24] MEDS: Insulin LISPRO 300 UNITS/3 ML VIAL SQ SCH (18:04)
[2017-01-24] MEDS ORDERED: 0.9 % Sodium Chloride 1,000 ML ONE (18:08)
[2017-01-24] MEDS ORDERED: Insulin LISPRO 300 UNITS/3 ML VIAL SQ SCH (21:00)
[2017-01-25 03:48] LABS: Hematocrit 34.4 % (35.3-44.9); Immature Granulocytes % 0.5 % (0-4); Lymphocytes % 21.4 %; Mean Corpuscular HGB Conc 33.4 g/dL (31.6-35.5); Mean Corpuscular Hemoglobin 26.3 pg (28.0-33.3); Mean Corpuscular Volume 78.5 fL (83.0-100.0); Mean Platelet Volume 10.6 fL (9.4-12.4); Platelet Count 164 K/mcL (140-400); Red Blood Count 4.38 M/mcL (3.82-4.97); Red Cell Distribution Width 15.5 % (11.5-14.5); Segmented Neutrophils % 64.8 %
[2017-01-25 03:49] LABS: Basophils % 0.3 %; Eosinophils # 0.3 K/mcL (0.0-0.6); Eosinophils % 5.1 %; Lymphocytes # 1.3 K/mcL (0.6-4.6); Monocytes # 0.5 K/mcL (0.0-1.3); Monocytes % 7.9 %; Neutrophils # 3.8 K/mcL (1.6-8.9)
[2017-01-25 03:53] LABS: INR 2.8; Prothrombin Time 30.7 Seconds (9.4-12.1)
[2017-01-25 04:05] LABS: Albumin 3.5 g/dL (3.5-5.0); Albumin/Globulin Ratio 1.2 (1.1-2.2); Bilirubin,Total 0.5 mg/dL (0.2-1.2); Calcium 9.5 mg/dL (8.6-10.8); Chol/HDL Ratio 4.6 (0-4.9); Globulin 2.9 g/dL (2.4-3.5); Magnesium 1.6 mg/dL (1.6-2.6); Total Protein 6.4 g/dL (6.0-8.3)
[2017-01-25 04:13] LABS: Hemoglobin 11.5 g/dL (11.5-15.4)
[2017-01-25] MEDS: Insulin LISPRO 300 UNITS/3 ML VIAL SQ SCH ×2 (06:34→12:18)
[2017-01-25] MEDS ORDERED: Aspirin 81 MG TAB.CHEW PO SCH (09:00)
--- NOTE | 2017-01-25 09:31 | ECHO - Doppler Report ---
Echocardiogram Name: Miriam Fischer Date of Study: 01/25/2017 Date: 1945 Ht: 58.0 in Medical Record#: [id number] Age: 71 Wt: 146.0 lb Gender: Female BSA: 1.59 Order #: [id number] Location: [facility] Room #: 2N07 Reading Physician: Charan Chaidez DO, FACC, LOLLY Salon/Spa Manager: JIE DingT, [facility] Ordering Physician: Van Atwood DO Primary Physician: Adalberto Quijano MD Indications: Chest pain Impressions: Technically sub-optimal due to poor echocardiographic windows. LVEF 60%. Normal LV chamber size and function. Mild concentric left ventricular hypertrophy. Atypical septal motion consistent with paced rhythm. Moderate left ventricular diastolic dysfunction. Normal right ventricular structure and function. Mild aortic regurgitation. Unable to estimate RVSP due to lack of TR jet. Left Ventricular Wall Motion: Rest Echo Findings All wall segments showed normal motion. Findings: Study Quality * Technically sub-optimal due to poor echocardiographic windows. ECG Findings * Paced rhythm. Left Ventricle * LVEF 60%. * Normal LV chamber size and function. * Mild to moderate concentric left ventricular hypertrophy. * Moderate left ventricular diastolic dysfunction. * Atypical septal motion consistent with paced rhythm. Right Ventricle * Normal right ventricular structure and function. Left Atrium * Mildly dilated left atrium. Right Atrium * Normal right atrial size. Interatrial Septum * Interatrial septum not well evaluated. Aortic Valve * Aortic valve not well visualized. * Grossly, the aortic valve leaflets appear mildly sclerotic. * Mild aortic regurgitation. * No aortic stenosis. Mitral Valve * Mild mitral annular calcification. * Moderately thickened mitral valve leaflets. * No mitral regurgitation. * No mitral stenosis. Tricuspid Valve * Normal tricuspid valve structure and function. * No tricuspid regurgitation. * Unable to estimate RVSP due to lack of TR jet. Pulmonic Valve * Pulmonic valve is not well visualized. * No pulmonic regurgitation. Aorta * Normally sized aortic root. Pericardium * The pericardium appears normal. IVC * Normal IVC dimensions and inspiratory collapse. Pulmonary Artery * Normal visualized portions of the main pulmonary artery. Device lead * A device lead was visualized in the right atrium and right ventricle. History Hypertension Diabetes Hypercholesteremia Family History of CAD History of CAD/PTCA Myocardial Infarction Congestive Heart Failure Measurements: BP: 109/ 87 2D Normal Values RVIDd: 3.80 cm <2.7 cm IVSd: 1.40 cm 0.6 - 1.0 cm LVIDd: 3.90 cm 3.7 - 5.6 cm LVPWd: 1.40 cm 0.6 - 1.1 cm LVIDs: 3.10 cm 1.5 - 3.6 cm AO: 2.50 cm < 4.0 cm LA: 4.90 cm 2.0 - 4.0cm %FS: 20.50 cm >25 % LA volume: 32 Mitral Valve Dec Time:271.00 msec Peak E:.91 m/sec Peak A:.55 m/sec E/A Ratio:1.7 Peak E' Lat Lm:4.58 cm/s Peak E' Med Lm:10 cm/s E/E' Lat Ratio:19.8 E/E' Med Ratio:9.1 Aortic Valve AI pressure Half-time: 580.00 msec Updated by Charan Chaidez DO, GIOVANY, [place] AMBROCIO on 01/25/2017 9:26:23 AM electronically signed on 01/25/2017 9:27:41 AM with status of Final Wall Motion Meier: 1=Normal, 2=Hypokinesis, 3=Akinesis, 4=Dyskinesis, 5=Aneurysmal, 6=Hyperkinetic, X=Not Visualized (Blank)=Missing
--- NOTE | 2017-01-25 09:51 | Cardiology Consult Note ---
Date of Encounter: 01/25/17 Time of Encounter: 08:10 Assessment and Plan (1) Elevated troponin Current Visit: Yes Status: Acute Mild, adynamic troponin elevation. Mild FLORES. Upon review, troponin has been chronically elevated. Episode of epigastric pain and indigestion in the ED--reports symptoms are not similar to angina. No acute ECG changes noted. Recommend medical management. Recent LHC 01/08/17 demonstrated stable CAD with patent stents, medical management recommended. EF preserved per TTE with normal wall motion. Stop IV NTG gtt, will resume home dose of Imdur. Continue home CV medications including asa and statin. Betablocker has been held as outpatient d/t hypotension. No further inpatient testing recommended from Cardiology standpoint. Follow-up with [facility] as scheduled on 02/04/17. (2) Paroxysmal a-fib Current Visit: No Status: Acute Hx of PAF. SR upon exam. 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 Has appts scheduled with [facility]. Anticoagulated on Coumadin for hx of Factor V. Discussion w patient/family: The assessment and plan as outlined above was discussed with the patient and/or family members who expressed understanding and agreement. All questions were answered. Thank you for involving us in the care of your patient. Please call with any questions. The patient will be discussed and reviewed with Dr. Andrew Neville; changes to be made accordingly. History of Present Illness Consult date: 01/25/17 Requesting physician: Van Atwood Consult reason: Elevated troponin Chief complaint: Left shoulder pain History of present illness: Ms. Fischer is a 71 year old female with PMH significant for CAD s/p PCI, PAF( coumadin), tachy-mikael syndrome s/p PPM, HTN, CVA x2, PAD, DMII, GERD, Factor V , INEZ, CKD who presented to the ED with left shoulder pain; she initially went to urgent care, but was then transferred to [facility]. She reports arthritic pain for the past several days (elbows, knees, ankles, shoulders); she woke up yesterday morning with reported swollen lymph node near left side of neck, this has since resolved. While in the ED, she reported severe epigastric "burning," states felt like indigestion. Symptoms were not similar to prior NM or angina. Past Med Surg Social Fam HX - Past Medical History Medical history: arthritis, atrial fibrillation, cancer, CHF, coronary artery disease, CVA, diabetes, GERD, hyperlipidemia, hypertension, myocardial infarction, osteoporosis, peripheral artery disease, renal disease, TIA, valvular heart disease Psychiatric history: depression - Past Surgical History Surgical History: angioplasty/stent, breast surgery, carotid endarterectomy, cholecystectomy, orthopedic, other, pacemaker - Social History Smoking Status: Never smoker Smokeless Tobacco Status: No Alcohol use: rarely Drug use: none - Family History Father Adopted: No Family Member Ethnicity: Non- Living Status: Hx Family Cardiac Disorders: Yes Hx Family Respiratory Disorders: No Hx Family Cancer: No Hx Family GI Disorders: No Hx Family Endocrine Disorder: Yes Hx Family Neuromuscular Disorders: No Hx Family Neurologic Disorders: Yes Hx Family HEENT Disorders: No Hx Family Autoimmune Disorders: Yes Mother Family Member Ethnicity: Non- Living Status: Hx Family Cardiac Disorders: Yes Hx Family Respiratory Disorders: No Hx Family Cancer: Yes Hx Family GI Disorders: No Hx Family Endocrine Disorder: Yes Hx Family Neuromuscular Disorders: No Hx Family Neurologic Disorders: No Hx Family HEENT Disorders: No Hx Family Autoimmune Disorders: Yes (RA) Sister Adopted: No Living Status: Still Living Hx Family Cardiac Disorders: Yes Hx Family Respiratory Disorders: No Hx Family Cancer: No Hx Family GI Disorders: No Hx Family Endocrine Disorder: Yes Hx Family Neuromuscular Disorders: No Hx Family Neurologic Disorders: Yes Hx Family HEENT Disorders: No Hx Family Autoimmune Disorders: No Brother Adopted: No Living Status: Still Living Hx Family Cardiac Disorders: Yes Hx Family Respiratory Disorders: No Hx Family Cancer: No Hx Family GI Disorders: No Hx Family Endocrine Disorder: No Hx Family Neuromuscular Disorders: No Hx Family Neurologic Disorders: No Hx Family HEENT Disorders: No Hx Family Autoimmune Disorders: No Medications and Allergies Escitalopram [Lexapro] 20 mg PO QAM 05/16/15 [History] Rosuvastatin [Crestor] 40 mg PO QPM 05/16/15 [History] Ranolazine [Ranexa] 1,000 mg PO BID #60 tab.er.12h 08/01/15 [Rx] Warfarin [Coumadin] 1.5 mg PO DAILY 01/15/16 [History] Aspirin 81 mg PO DAILY tab.chew 02/05/16 [Rx] Insulin Glargine,Hum.rec.anlog [Lantus Solostar] 40 unit SQ QPM 07/06/16 [ History] Insulin LISPRO [Humalog] 2 - 10 unit SQ TIDWM 07/06/16 [History] Losartan Potassium [Cozaar] 50 mg PO DAILY 07/06/16 [History] Nitroglycerin 0.4 mg SL Q5MIN PRN #0 tab.subl 07/10/16 [Rx] Oxygen 2 l NS AD 08/07/16 [History] Clopidogrel [Plavix] 75 mg PO DAILY #30 tablet 08/15/16 [Rx] Pantoprazole Sodium [Protonix] 40 mg PO DAILY #30 tablet.dr 08/15/16 [Rx] Melatonin 10 mg PO HS 09/19/16 [History] Anastrozole [Arimidex] 1 mg PO DAILY 11/04/16 [History] Carvedilol 12.5 mg PO BID 11/04/16 [History] Cholecalciferol (D-3) [Vitamin D] 1,000 unit PO DAILY 11/04/16 [History] Isosorbide MONOnitrate [Isosorbide Mononitrate ER] 120 mg PO DAILY 11/04/16 [ History] amLODIPine [Norvasc] 5 mg PO DAILY 11/04/16 [History] Furosemide [Lasix] 60 mg PO BID #60 tab 11/06/16 [Rx] Potassium Chloride [K-Tab ER] 20 meq PO BID 01/05/17 [History] metOLazone [Zaroxolyn] 2.5 mg PO WE 01/05/17 [History] Allergies phenylbutazone [From Butazolidin] Allergy (Verified 09/07/16 13:54) Rash amitriptyline [From Elavil] Adverse Reaction (Verified 09/07/16 13:54) Headache codeine Adverse Reaction (Verified 09/07/16 13:54) Headache desipramine Adverse Reaction (Verified 09/07/16 13:54) Headache lisinopril Adverse Reaction (Verified 09/07/16 13:54) Cough meperidine [From Demerol] Adverse Reaction (Verified 09/07/16 13:54) Headache nalbuphine Adverse Reaction (Verified 09/07/16 13:54) Headache Nortriptyline Adverse Reaction (Verified 09/07/16 13:54) Headache tiagabine Adverse Reaction (Verified 09/07/16 13:54) Headache All Systems Review: A 10-system review of systems was performed and is negative for pertinent findings except as documented above in the HPI. - Cardiovascular Cardiovascular: as per HPI Physical Examination Vital Signs, Last 4 Hours Temp Pulse BP 01/25/17 08:57 97.8 F 63 109/87 General: Conversant, No Apparent Distress HEENT: Atraumatic, Normocephaly, Mucus Membranes Moist Cardiac: Reg Rate and Rhythm, Normal S1 and S2 Lungs: Normal Breath Sounds Neuro: Alert and responsive Abdomen: Soft Skin: No rashes noted on visualized skin Musculoskeletal: No Chest Wall Tenderness Extremities: No Edema, Normal Pulses Other: Left upper chest wall: s/p PPM--steri strips intact. No bleeding, oozing, or hematoma at site. Results 01/25/17 03:34 01/25/17 03:34 Lab Results 01/24/17 01/24/17 01/24/17 15:54 15:54 15:54 WBC 7.4 Hgb 13.3 D Hct 39.5 Plt Count 200 INR 3.5 APTT 38.4 H Sodium Potassium Chloride Carbon Dioxide BUN Creatinine Glucose Calcium Magnesium Total Bilirubin AST ALT Alkaline Phosphatase Troponin I 0.06 H* 01/25/17 01/25/17 01/25/17 03:34 03:34 03:34 WBC 5.9 Hgb 11.5 D Hct 34.4 L Plt Count 164 INR 2.8 APTT Sodium 138 Potassium 3.0 L Chloride 96 L Carbon Dioxide 32 H BUN 47 H Creatinine 1.69 H Glucose 194 H Calcium 9.5 Magnesium 1.6 Total Bilirubin 0.5 AST 123 H ALT 134 H Alkaline Phosphatase 92 Troponin I Active Medications Acetaminophen (Tylenol) 650 mg PO Q6HR PRN PRN Reason: Mild Pain (1-3) Stop: 07/26/17 16:12 Al Hydrox/Mg Hydrox/Simethicone (Maalox) 15 ml PO Q6HR PRN PRN Reason: Dyspepsia Stop: 07/26/17 16:12 Last Admin: 01/24/17 20:57 Dose: 15 ml Aspirin (Aspirin) 81 mg PO DAILY SETH Stop: 07/27/17 09:01 Dextrose/Water (Dextrose 50% (Syg)) 25 ml IVP AD PRN PRN Reason: Hypoglycemia Stop: 07/26/17 16:22 Glucagon (Glucagen) 1 mg IM ONCE PRN PRN Reason: Hypoglycemia Stop: 07/26/17 16:22 Glucose (Gluctose) 15 gm PO ONCE PRN PRN Reason: Hypoglycemia Stop: 07/26/17 16:22 Glucose (Gluctose) 30 gm PO ONCE PRN PRN Reason: Hypoglycemia Stop: 07/26/17 16:22 Dextrose (Dextrose 5%) 1,000 mls @ 100 mls/hr IVC .Q10H PRN PRN Reason: HYPOGLYCEMIA Stop: 07/26/17 16:22 Insulin Human Lispro (Humalog) 0 units SQ TIDAC SETH PRN Reason: Protocol Stop: 07/26/17 16:31 Last Admin: 01/25/17 06:34 Dose: 4 units Insulin Human Lispro (Humalog) 0 units SQ HS SETH PRN Reason: Protocol Stop: 07/26/17 21:01 Last Admin: 01/24/17 20:39 Dose: 2 units Isosorbide Mononitrate (Imdur) 120 mg PO DAILY [facility] Stop: 07/27/17 10:01 Magnesium Hydroxide (Milk Of Magnesia Conc) 10 ml PO DAILY PRN PRN Reason: Indigestion Stop: 07/26/17 16:12 Morphine Sulfate (Morphine Sulfate) 2 mg IVP Q2H PRN PRN Reason: Chest Pain Stop: 07/26/17 16:17 Naloxone HCl (Narcan) 0.4 mg IVP Q2MIN PRN PRN Reason: Opioid Reversal Stop: 07/26/17 16:12 Nitroglycerin (Nitroglycerin) 0.4 mg SL Q5MIN PRN PRN Reason: Chest Pain Stop: 07/26/17 15:18 Last Admin: 01/24/17 16:06 Dose: 0.4 mg Ondansetron HCl (Zofran) 4 mg IVP Q8HR PRN PRN Reason: Nausea And Vomiting Stop: 07/26/17 16:12 Last Admin: 01/24/17 20:57 Dose: 4 mg Potassium Chloride (Potassium Chloride) 40 meq PO BID [facility] Stop: 01/25/17 21:01 - Imaging and Cardiology Echo: report reviewed Cardiac cath: report reviewed Other Results: 12 hour tele: avg HR=62, paced at times. - EKG Interpretation EKG results cardiology: personally reviewed Consult Discharge Plan - Plan Referrals: Okolie,Glover, MD [Primary Care Provider] -
[2017-01-25] MEDS ORDERED: GI Cocktail 40 ML EACH PO ONE (09:52)
[2017-01-25] MEDS ORDERED: Isosorbide MONOnitrate (24 HR) 30 MG TAB.ER.24H PO SCH (10:00)
--- NOTE | 2017-01-25 12:46 | Electrocardiograph Report ---
[address] [address] Test Date: 2017-01-24 Pat Name: Miriam Fischer Department: 102 Room: 2N07 Gender: F Data Conversion Operator: : 1945 Requested By: Zoial Bowers Order Number: [id number] Reading MD: Andrew Neville Measurements Intervals [place] Rate: 66 P: 69 OK: 232 QRS: -9 QRSD: 98 T: 32 QT: 423 QTc: 436 Interpretive Statements SINUS RHYTHM WITH FIRST DEGREE AV BLOCK MINIMAL VOLTAGE CRITERIA FOR LVH NONSPECIFIC ST \T\ T-WAVE ABNORMALITY Electronically Signed On 01-25-2017 12:44:09 EDT by Andrew Neville
--- NOTE | 2017-01-25 12:49 | Electrocardiograph Report ---
[place] [address] Test Date: 2017-01-24 Pat Name: Miriam Fischer Department: 102 Room: 2N07 Gender: F Cell Manager: : 1945 Requested By: Robinson Bonilla Order Number: [id number] Reading MD: Andrew Neville Measurements Intervals [place] Rate: 68 P: 70 ID: [id number] QRS: 1 QRSD: 99 T: 65 QT: 399 QTc: 417 Interpretive Statements SINUS RHYTHM WITH FIRST DEGREE AV BLOCK NONSPECIFIC ST \T\ T-WAVE ABNORMALITY Electronically Signed On 01-25-2017 12:47:55 EDT by Andrew Neville
[2017-01-25 13:41] LABS: Calcium 9.4 mg/dL (8.6-10.8); Potassium 3.6 mEq/L (3.5-4.5)
[2017-01-25 15:34] VITALS: BP 109/51
--- NOTE | 2017-01-25 15:53 | Discharge Summary ---
Date of Encounter: 01/25/17 Time of Encounter: 15:42 - Discharge Diagnosis (1) Chest pain Priority: Primary Status: Acute Qualifiers: Chest pain type: chest pain due to myocardial ischemia Ischemic chest pain type: unstable angina pectoris Qualified Code(s): I20.0 - Unstable angina (2) [id number] kidney injury Priority: Primary Status: Acute (3) COPD (chronic obstructive pulmonary disease) Priority: Secondary Status: Chronic Qualifiers: COPD type: unspecified COPD Qualified Code(s): J44.9 - Chronic obstructive pulmonary disease, unspecified (4) Moderate mitral regurgitation Priority: Secondary Status: Chronic (5) Diastolic heart failure Priority: Secondary Status: Chronic Qualifiers: Heart failure chronicity: acute on chronic Qualified Code(s): I50.33 - Acute on chronic diastolic (congestive) heart failure (6) HTN (hypertension) Priority: Secondary Status: Chronic Qualifiers: Hypertension type: essential hypertension Qualified Code(s): I10 - Essential (primary) hypertension (7) Diabetes mellitus Priority: Secondary Status: Chronic Qualifiers: Diabetes mellitus type: type 2 Diabetes mellitus complication status: with unspecified complications Diabetes mellitus termite 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 insulin use: with termite 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 use Qualified Code(s): E11.8 - Type 2 diabetes mellitus with unspecified complications; Z79.4 - longterm (current) use of insulin (8) CKD (chronic kidney disease) stage 3, GFR 30-59 ml/min Priority: Secondary Status: Chronic - Discharge Medications Home Medications: Escitalopram [Lexapro] 20 mg PO QAM 05/16/15 [History] Rosuvastatin [Crestor] 40 mg PO QPM 05/16/15 [History] Ranolazine [Ranexa] 1,000 mg PO BID #60 tab.er.12h 08/01/15 [Rx] Warfarin [Coumadin] 1.5 mg PO DAILY 01/15/16 [History] Aspirin 81 mg PO DAILY tab.chew 02/05/16 [Rx] Insulin Glargine,Hum.rec.anlog [Lantus Solostar] 40 unit SQ QPM 07/06/16 [ History] Insulin LISPRO [Humalog] 2 - 10 unit SQ TIDWM 07/06/16 [History] Nitroglycerin 0.4 mg SL Q5MIN PRN #0 tab.subl 07/10/16 [Rx] Oxygen 2 l NS AD 08/07/16 [History] Clopidogrel [Plavix] 75 mg PO DAILY #30 tablet 08/15/16 [Rx] Pantoprazole Sodium [Protonix] 40 mg PO DAILY #30 tablet. 08/15/16 [Rx] Melatonin 10 mg PO HS 09/19/16 [History] Anastrozole [Arimidex] 1 mg PO DAILY 11/04/16 [History] Cholecalciferol (D-3) [Vitamin D] 1,000 unit PO DAILY 11/04/16 [History] Isosorbide MONOnitrate [Isosorbide Mononitrate ER] 120 mg PO DAILY 11/04/16 [ History] amLODIPine [Norvasc] 5 mg PO DAILY 11/04/16 [History] Allergies/Adverse Reactions: Allergies phenylbutazone [From Butazolidin] Allergy (Verified 09/07/16 13:54) Rash amitriptyline [From Elavil] Adverse Reaction (Verified 09/07/16 13:54) Headache codeine Adverse Reaction (Verified 09/07/16 13:54) Headache desipramine Adverse Reaction (Verified 09/07/16 13:54) Headache lisinopril Adverse Reaction (Verified 09/07/16 13:54) Cough meperidine [From Demerol] Adverse Reaction (Verified 09/07/16 13:54) Headache nalbuphine Adverse Reaction (Verified 09/07/16 13:54) Headache Nortriptyline Adverse Reaction (Verified 09/07/16 13:54) Headache tiagabine Adverse Reaction (Verified 09/07/16 13:54) Headache Procedures/tests Complete & Pending: Procedures Performed prior 72 hours Category Date Time Status EV echocardiogram Routine Y 01/25/17 07:00 Completed Date of admission: 01/24/17 15:51 Primary care physician: Adalberto Quijano MD Consults: 01/24/17 16:16 Consult to Cardiology [CONS] Routine Comment: Consulting Provider: Cardiology [place] Reason for Consult: Chest pain - notified by ED Call Completed: Yes - Patient Status Disposition: Home, Self-Care Condition: Good Functional capacity at discharge: independent ambulation Overall status at discharge: patient is progressing back to baseline - Discharge Instructions Instructions: Warfarin (By mouth), Chest Pain (DC), Pacemaker (DC), Urinary Tract Infection in Women (DC), Diabetes Mellitus Type 2 in Adults (DC), Vitamin K in Foods (NC) Follow Up With: Adalberto Quijano MD [Primary Care Provider] - (Web request sent) Additional Instructions: please follow up with your primary care doctor on friday January 27, 2017. please have blood test done tomorrow to check your kidney function. do not take your lasix, losartan and metolazone until you see your doctor on thursday. follow a strict heart diet and do not drink more than 1.8 Liters of fluids a day. weight yourself daily, if you gain more than 1 pound in a day, please call your doctor. - Diet and Activity Activity: resume usual activities as tolerated Diet: low fat, low cholesterol, low salt diet, other (fluid restriction 1.8 liters a day) Interval History: Patient denies any chest pain. No shortness of breath. No lower extremity edema. She is eating well. She is eager to go home. Hospital course: Ms. Fischer is a 71 year old female with a past medical history CAD, diastolic heart failure, tachybradycardia syndrome status post PPM, hypertension, diabetes , and atrial fibrillation who presented with a chief complaint of chest pain. Patient has chronic elevated troponins. No acute EKG changes. Mild acute kidney injury. Chest pain likely secondary to indigestion. She has had left heart catheterization in December 2016 showing a stable CAD with patent stents. Echocardiogram revealed LVEF 60%, moderate left ventricular diastolic dysfunction. Physical examination revealed patient was euvolemic, no lower extremity edema. Chest x-ray showed no acute pulmonary process. On admission, patient is started on nitroglycerin drip but this was discontinue after adynamic troponins and resolution of chest pain. Her Lasix and metolazone were discontinued due to acute kidney injury and possible over diuresis. PLAN: Patient instructed to hold her Lasix and metolazone for 1 more day. She will follow-up advised strict restriction and low-salt diet. She will wake herself daily. She will follow-up with her primary care physician on Thursday. Patient and family were explained in detail her diagnosis and treatment. They verbalized understanding and agreed with the plan. All questions answered. - Time Spent with Patient Total time spent providing and/or coordinating discharge services: - Constitutional Vitals: Temp Pulse Resp BP Pulse Ox 98 F 68 20 109/51 99 01/25/17 15:00 01/25/17 13:00 01/25/17 15:00 01/25/17 15:00 01/25/17 15:00 General appearance: Present: cooperative, A&O X 3, pleasant, no acute distress, answers questions appropriately - Neck Neck exam general surgery: Present: supple, trachea midline. Absent: lymphadenopathy - Respiratory Respiratory exam: Present: CTAB - Cardiovascular Cardiovascular exam: Present: RRR - GI/Abdominal GI/Abdominal exam: Present: normal bowel sounds, soft. Absent: distended, tenderness - Extremities Exam Extremities exam: Absent: pedal edema - Neurological Exam Neurological exam: Present: alert, oriented X3. Absent: facial droop, speech deficit
== END 2017-01-25 17:00 | disposition home or self-care (01) ==
LOC: 2NNU 10:38 → EMEROO 10:38 → 2NNU 17:18
PROVIDERS: ADMIT Internal Medicine; ATTEND Internal Medicine

== ENCOUNTER 2017-02-05 17:23 | Inpatient (IN) ==
--- NOTE | 2017-02-05 17:35 | Emergency Department Note ---
Disposition Clinical Impression: Atrial fibrillation with rapid ventricular response, Subtherapeutic international normalized ratio (INR), Hypokalemia Disposition: Admitted As Inpatient Condition: Fair Referrals: Adalberto Quijano MD [Primary Care Provider] - Forms: ED Satisfaction Letter Arrhythmia/Palpitations HPI - General Chief Complaint: ED Chest Pain Stated Complaint: "a-fib" Time Seen by Provider: 02/05/17 17:34 Source: patient Limitations: no limitations Nursing Notes Reviewed: Yes Vital Signs Reviewed: Yes - History of Present Illness Pt Subjective Complaint: rapid heart beat, "heart racing", palpitations Onset (ago): day(s) (1) Duration: constant Severity: moderate, similar to previous episodes Context: occurred during rest Arrhythmia History: atrial fibrillation Associated symptoms: Reports: chest pain. Denies: nausea, vomiting Treatments prior to arrival: beta-jocelyne - Related Data Home Medications Medication Instructions Recorded Confirmed Escitalopram [Lexapro] 20 mg PO QAM 05/16/15 01/24/17 Rosuvastatin [Crestor] 40 mg PO QPM 05/16/15 01/24/17 Warfarin [Coumadin] 1.5 mg PO DAILY 01/15/16 01/24/17 Insulin Glargine,Hum.rec.anlog 40 unit SQ QPM 07/06/16 01/24/17 [Lantus Solostar] Insulin LISPRO [Humalog] 2 - 10 unit SQ TIDWM 07/06/16 01/24/17 Oxygen 2 l NS AD 08/07/16 01/24/17 Melatonin 10 mg PO HS 09/19/16 01/24/17 Anastrozole [Arimidex] 1 mg PO DAILY 11/04/16 01/24/17 Cholecalciferol (D-3) [Vitamin D] 1,000 unit PO DAILY 11/04/16 01/24/17 Isosorbide MONOnitrate [Isosorbide 120 mg PO DAILY 11/04/16 01/24/17 Mononitrate ER] amLODIPine [Norvasc] 5 mg PO DAILY 11/04/16 01/24/17 Previous Rx's Medication Instructions Recorded Ranolazine [Ranexa] 1,000 mg PO BID #60 tab.er.12h 08/01/15 Aspirin 81 mg PO DAILY tab.chew 02/05/16 Nitroglycerin 0.4 mg SL Q5MIN PRN #0 tab.subl 07/10/16 Clopidogrel [Plavix] 75 mg PO DAILY #30 tablet 08/15/16 Pantoprazole Sodium [Protonix] 40 mg PO DAILY #30 tablet. 08/15/16 Allergies Allergy/AdvReac Type Severity Reaction Status Date / Time phenylbutazone Allergy Rash Verified 02/05/17 17:30 [From Butazolidin] amitriptyline [From Elavil] AdvReac Headache Verified 02/05/17 17:30 codeine AdvReac Headache Verified 02/05/17 17:30 desipramine AdvReac Headache Verified 02/05/17 17:30 lisinopril AdvReac Cough Verified 02/05/17 17:30 meperidine [From Demerol] AdvReac Headache Verified 02/05/17 17:30 nalbuphine AdvReac Headache Verified 02/05/17 17:30 Nortriptyline AdvReac Headache Verified 02/05/17 17:30 tiagabine AdvReac Headache Verified 02/05/17 17:30 All systems ED: reviewed and negative except as stated. Constitutional: Denies: fever, chills, weakness Respiratory: Denies: hemoptysis Past Medical History - Past Medical History Source: patient, old records reviewed, nursing notes reviewed Medical history: Reports: arthritis, atrial fibrillation, cancer, CHF, coronary artery disease, CVA, diabetes, GERD, hyperlipidemia, hypertension, myocardial infarction, osteoporosis, peripheral artery disease, renal disease, TIA, valvular heart disease Surgical history: Reports: angioplasty/stent, breast surgery, carotid endarterectomy, cholecystectomy, orthopedic, other, pacemaker Psychiatric history: Reports: depression 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 - Social History Smoking Status: Never smoker Smokeless Tobacco Status: No Alcohol use: Reports: none, rarely Drug use: Reports: none Physical Exam - General Limitations: no limitations General appearance: alert - Head Head exam: atraumatic, normocephalic, normal inspection - Eye Eye exam: Present: normal appearance, PERRL, EOMI - Expanded Eye Exam Pupils: Left: reactive - ENT ENT exam: normal exam, normal oropharynx, mucous membranes moist - Expanded ENT Exam External ear exam: Present: normal external inspection Mouth exam: Present: normal external inspection Teeth exam: Present: normal inspection Throat exam: Present: normal inspection - Neck Neck exam: Present: normal inspection, full ROM, trachea midline - Chest Chest inspection: Present: normal inspection, symmetric chest wall rise - Respiratory Respiratory exam: Present: normal lung sounds bilaterally - Cardiovascular Cardiovascular exam: Present: tachycardia, irregular rhythm - Abdominal Exam Abdominal exam: Present: soft, Non-Tender. Absent: tenderness, distention, guarding, rebound, rigidity - Extremities Exam Extremities exam: Present: normal inspection, full ROM. Absent: tenderness, pedal edema - Expanded Upper Extremity Exam Shoulder exam: Present: normal inspection, full ROM Arm exam: Present: normal inspection, full ROM Elbow exam: Present: normal inspection, full ROM Forearm/Wrist exam: Present: normal inspection, full ROM Hand exam: Present: normal inspection, full ROM Vascular exam: Normal: capillary refill, radial pulse - Expanded Lower Extremity Exam Hip/Pelvis exam: Present: normal inspection, full ROM Upper leg exam: Present: normal inspection, full ROM Knee exam: Present: normal inspection, full ROM Lower leg exam: Present: normal inspection, full ROM Ankle exam: Present: normal inspection, full ROM Foot/toe exam: Present: normal inspection, full ROM Neurovascular/Tendon exam: Absent: motor deficit, sensory deficit, tendon deficit - Back Exam Back exam: Present: normal inspection, full ROM. Absent: tenderness - Neurological Exam Neurological exam: Present: alert, oriented X3 - Expanded Neurological Exam Patient oriented to: Present: person, place, time Coma Scale Eye Opening: Spontaneous Coma Scale Motor Response: Obeys Commands Coma Scale Verbal Response: Oriented Coma Scale Total: 15 - Psychiatric Psychiatric exam: Present: normal affect, normal mood - Skin Skin exam: Present: warm, dry, intact, normal color Course Vital Signs Temperature 97.6 F 02/05/17 17:25 Pulse Rate 141 02/05/17 17:25 Respiratory Rate 22 02/05/17 17:25 Blood Pressure 80/58 02/05/17 17:25 O2 Sat by Pulse Oximetry 97 02/05/17 17:25 Temperature 97.6 F 02/05/17 17:25 Pulse Rate 97 02/05/17 18:18 Respiratory Rate 24 02/05/17 18:10 Blood Pressure 100/67 02/05/17 18:18 O2 Sat by Pulse Oximetry 98 02/05/17 18:10 Oxygen Delivery Oxygen Delivery Room Air Arrhythmia/Palpitations - MDM Narrative Medical decision making narrative: marta wright accepts - Differential Diagnosis Differential Diagnosis: Likely: palpitations, artial arrhythmia, ventricular premature beats, ventricular tachycardia, metabolic/electrolyte disturbance, undetermined arrhythmia - Medical Records Medical records reviewed: Yes I reviewed the patient's medical records. - Lab Data Lab results reviewed: Yes I reviewed the patient's lab results. Result diagrams: 02/05/17 17:59 02/05/17 17:59 Lab Results 02/05/17 02/05/17 02/05/17 Range/Units 17:59 17:59 17:59 WBC 15.0 H (4.3-11.1) K/mcL RBC 6.03 H (3.82-4.97) M/mcL Hgb 15.6 H (11.5-15.4) g/dL Hct 45.0 H (35.3-44.9) % MCV 74.6 L (83.0-100.0) fL MCH 25.9 L (28.0-33.3) pg MCHC 34.7 (31.6-35.5) g/dL RDW 15.5 H (11.5-14.5) % Plt Count 266 (140-400) K/mcL MPV 10.1 (9.4-12.4) fL Immature Gran % 1.6 (0-4) % Seg Neutrophils % 68.7 % Lymphocytes % 17.7 % Monocytes % 9.4 % Eosinophils % 2.3 % Basophils % 0.3 % Neutrophils # 10.3 H (1.6-8.9) K/mcL Lymphocytes # 2.7 (0.6-4.6) K/mcL Monocytes # 1.4 H (0.0-1.3) K/mcL Eosinophils # 0.3 (0.0-0.6) K/mcL Basophils # 0.1 (0.0-0.2) K/mcL Nucleated RBCs/100 WBC 0.1 H (0) /100 WBC PT 46.0 H* (9.4-12.1) Seconds INR 4.1 APTT 32.2 (26.0-36.0) Seconds Sodium 134 L (136-145) mEq/L Potassium 2.6 L (3.5-4.5) mEq/L Chloride 89 L (98-109) mEq/L Carbon Dioxide 28 (19-29) mEq/L BUN 68 H (7-20) mg/dL Creatinine 1.69 H (0.57-1.11) mg/dL Est GFR ( Amer) 36 L (> 60) Est GFR (Non-Af Amer) 30 L (> 60) BUN/Creatinine Ratio 40 H (6-26) Glucose 201 H (70-99) mg/dL Calculated Osmolality 303 H (280-300) Calcium 11.0 H (8.6-10.8) mg/dL Troponin I (0-0.03) ng/mL 02/05/17 Range/Units 17:59 WBC (4.3-11.1) K/mcL RBC (3.82-4.97) M/mcL Hgb (11.5-15.4) g/dL Hct (35.3-44.9) % MCV (83.0-100.0) fL MCH (28.0-33.3) pg MCHC (31.6-35.5) g/dL RDW (11.5-14.5) % Plt Count (140-400) K/mcL MPV (9.4-12.4) fL Immature Gran % (0-4) % Seg Neutrophils % % Lymphocytes % % Monocytes % % Eosinophils % % Basophils % % Neutrophils # (1.6-8.9) K/mcL Lymphocytes # (0.6-4.6) K/mcL Monocytes # (0.0-1.3) K/mcL Eosinophils # (0.0-0.6) K/mcL Basophils # (0.0-0.2) K/mcL Nucleated RBCs/100 WBC (0) /100 WBC PT (9.4-12.1) Seconds INR APTT (26.0-36.0) Seconds Sodium (136-145) mEq/L Potassium (3.5-4.5) mEq/L Chloride (98-109) mEq/L Carbon Dioxide (19-29) mEq/L BUN (7-20) mg/dL Creatinine (0.57-1.11) mg/dL Est GFR ( Amer) (> 60) Est GFR (Non-Af Amer) (> 60) BUN/Creatinine Ratio (6-26) Glucose (70-99) mg/dL Calculated Osmolality (280-300) Calcium (8.6-10.8) mg/dL Troponin I 0.18 H* (0-0.03) ng/mL - Radiology Data Radiology results reviewed: Yes I reviewed the patient's radiology results. - EKG Data EKG attestation: Yes I reviewed and interpreted this EKG. Rate: tachycardia (137) Rhythm: A.Fib Interpretation: nonspecific ST-T wave changes Critical Care Time Critical Care Time: Yes Total Critical Care Time: 40 Attestation: Critical care performed: Time is exclusive of separately billable procedures. Time includes: direct patient care, patient reassessment, coordination of patient care, interpretation of data (laboratory data, radiology data, and respiratory data), review of patient's medical records, medical consultation and documentation of patient care. Procedures included in critical care time: Procedures excluded from critical care time:
[2017-02-05] MEDS ORDERED: Pantoprazole 40 MG VIAL IVP ONE (17:42)
[2017-02-05] MEDS: 0.9 % Sodium Chloride 500 ML IVC ONE ×2 (18:00→23:43)
[2017-02-05 18:15] LABS: Basophils # 0.1 K/mcL (0.0-0.2); Basophils % 0.3 %; Eosinophils # 0.3 K/mcL (0.0-0.6); Eosinophils % 2.3 %; Hemoglobin 15.6 g/dL (11.5-15.4); Immature Granulocytes % 1.6 % (0-4); Lymphocytes # 2.7 K/mcL (0.6-4.6); Lymphocytes % 17.7 %; Mean Corpuscular HGB Conc 34.7 g/dL (31.6-35.5); Mean Corpuscular Hemoglobin 25.9 pg (28.0-33.3); Mean Corpuscular Volume 74.6 fL (83.0-100.0); Mean Platelet Volume 10.1 fL (9.4-12.4); Monocytes # 1.4 K/mcL (0.0-1.3); Monocytes % 9.4 %; Neutrophils # 10.3 K/mcL (1.6-8.9); Nucleated Red Blood Cells 0.1 /100 WBC (0); Platelet Count 266 K/mcL (140-400); Red Blood Count 6.03 M/mcL (3.82-4.97); Red Cell Distribution Width 15.5 % (11.5-14.5); Segmented Neutrophils % 68.7 %
[2017-02-05 18:23] LABS: INR 4.1
[2017-02-05 18:27] LABS: Activated Partial Thrombo Time 32.2 Seconds (26.0-36.0)
[2017-02-05 18:31] LABS: Potassium 2.6 mEq/L (3.5-4.5)
[2017-02-05] MEDS ORDERED: Potassium Chloride 40 MEQ, Lidocaine 1% 2 ML in D5% in Water 500 ML IVPB ONE (18:35)
[2017-02-05] MEDS ORDERED: Potassium Effervescent 25 MEQ TABLET.EFF PO ONE (18:35)
[2017-02-05 18:55] LABS: Thyroid Stimulating Hormone 6.409 mcIU/mL (0.350-4.840)
[2017-02-05] MEDS ORDERED: Naloxone 0.4 MG/ML INJ IVP PRN ×2 (19:23→19:27)
[2017-02-05] MEDS ORDERED: NON-FORMULARY MEDICATION 1 EACH EACH (Oxygen [Oxygen] 2 L) NS SCH (19:30)
[2017-02-05] MEDS ORDERED: *HR* Warfarin 3 MG TABLET PO SCH (19:30)
--- NOTE | 2017-02-05 19:31 | Internal Med History&Physical ---
Date of Encounter: 02/05/17 Time of Encounter: 19:29 Assessment and Plan (1) Atrial fibrillation with rapid ventricular response Current visit: Yes Status: Acute patient with history of paroxysmal AFIB and prior admissions for RVR comes in with symptomatic AFIB RVR for which she was started on cardizem drip, we will transition her to her oral medications, elevated cardiac enzymes is suggestive of demand ischemia, we will repeat in AM, she currently denies chest pain, will check TSH/FT4, will continue systemic anticoagulation (2) Elevated troponin Current visit: Yes Status: Acute related to demand ischemia in the setting of AFIB RVR, poor renal clearance from CKD may also be playing a role, we will repeat in AM (3) Supratherapeutic INR Current visit: Yes Status: Acute INR is 4.1today, we will hold today's dose and follow AM INR (4) Hypokalemia Current visit: Yes Status: Acute etiology is unknown, we will replace and follow BMP (5) COPD (chronic obstructive pulmonary disease) Current visit: Yes Status: Chronic will do PRN nebs Qualifiers: COPD type: chronic bronchitis Chronic bronchitis type: simple Qualified Code(s): J41.0 - Simple chronic bronchitis (6) Diabetes Current visit: Yes Status: Chronic Hx of type 2 DM on insulin therapy, A1c was 6.6% this month, will continue basal bolus insulin regimen with sliding scale for coverage Qualifiers: Diabetes mellitus type: type 2 Diabetes mellitus complication status: with neurologic complications Diabetes mellitus complication detail: with polyneuropathy Diabetes mellitus joint terminal attack controller insulin use: with skilled nursing use Qualified Code(s): E11.42 - Type 2 diabetes mellitus with diabetic polyneuropathy; Z79.4 - halfway (current) use of insulin (7) HTN (hypertension) Current visit: Yes Status: Chronic will continue home medications whilst monitoring BP Qualifiers: Hypertension type: essential hypertension Qualified Code(s): I10 - Essential (primary) hypertension (8) CKD (chronic kidney disease), stage III Current visit: Yes Status: Chronic her renal function seems to be at baseline, will avoid nephrotoxins, renally dose al medications and follow BMP (9) GERD (gastroesophageal reflux disease) Current visit: Yes Status: Chronic will continue PPI, her distressing reflux symptoms may have triggered her current predicament Qualifiers: Esophagitis presence: without esophagitis Qualified Code(s): K21.9 - Gastro -esophageal reflux disease without esophagitis (10) INEZ treated with BiPAP Current visit: Yes Status: Chronic will order BiPAP [facility] Internal Medicine - H&P: HPI Chief complaint: palpitations Admitted From: Emergency Dept Plans for Post Hospital Care: Home History of present illness: Ms. Fischer is a 71 year old female with a history of paroxysmal AFIB on Coumadin as well as recent pacemaker placement about 3 weeks ago for sick sinus syndrome was brought in for palpitations. She was in her usual state of health until at 2am today when she was awoken by severe acid reflux symptoms. Around the same time she felt that her heart was racing and when she checked her heart rate it was in the 150's. She tried to go back to sleep in the hope that it will subside but when she woke up this morning she was still having the symptoms, her heart rate was in the 130's then. She took an extra dose of her coreg 6.25mg and tried to wait it out. Throughout the day her symptoms continued so her brought her in for further evaluation. In the ER of [place] her EKG was suggestive of AFIB with an RVR of 137bpm, so she was started on cardizem drip and is being admitted for management. She reports fatigue, dyspnea and dyspnea on exertion, she also feels lightheaded. Past Med Surg Social Fam HX - Past Medical History Source: patient, old records reviewed, obtained from family Medical history: arthritis, atrial fibrillation, cancer, CHF, coronary artery disease, CVA, diabetes, GERD, hyperlipidemia, hypertension, myocardial infarction, osteoporosis, peripheral artery disease, renal disease, TIA, valvular heart disease Psychiatric history: depression - Past Surgical History Surgical History: angioplasty/stent (one 20 years ago and a recent one in 09/2016 ), breast surgery, carotid endarterectomy, cholecystectomy, orthopedic, other, pacemaker (3 weeks ago for sick sinus syndrome) - Social History Smoking Status: Never smoker Smokeless Tobacco Status: No Alcohol use: none, rarely Drug use: none - Family History Father Adopted: No Family Member Ethnicity: Non- Living Status: Hx Family Cardiac Disorders: Yes Hx Family Respiratory Disorders: No Hx Family Cancer: No Hx Family GI Disorders: No Hx Family Endocrine Disorder: Yes Hx Family Neuromuscular Disorders: No Hx Family Neurologic Disorders: Yes Hx Family HEENT Disorders: No Hx Family Autoimmune Disorders: Yes Mother Family Member Ethnicity: Non- Living Status: Hx Family Cardiac Disorders: Yes Hx Family Respiratory Disorders: No Hx Family Cancer: Yes Hx Family GI Disorders: No Hx Family Endocrine Disorder: Yes Hx Family Neuromuscular Disorders: No Hx Family Neurologic Disorders: No Hx Family HEENT Disorders: No Hx Family Autoimmune Disorders: Yes (RA) Sister Adopted: No Living Status: Still Living Hx Family Cardiac Disorders: Yes Hx Family Respiratory Disorders: No Hx Family Cancer: No Hx Family GI Disorders: No Hx Family Endocrine Disorder: Yes Hx Family Neuromuscular Disorders: No Hx Family Neurologic Disorders: Yes Hx Family HEENT Disorders: No Hx Family Autoimmune Disorders: No Brother Adopted: No Living Status: Still Living Hx Family Cardiac Disorders: Yes Hx Family Respiratory Disorders: No Hx Family Cancer: No Hx Family GI Disorders: No Hx Family Endocrine Disorder: No Hx Family Neuromuscular Disorders: No Hx Family Neurologic Disorders: No Hx Family HEENT Disorders: No Hx Family Autoimmune Disorders: No Internal Medicine - H&P: Meds Escitalopram [Lexapro] 20 mg PO QAM 05/16/15 [History] Rosuvastatin [Crestor] 40 mg PO QPM 05/16/15 [History] Ranolazine [Ranexa] 1,000 mg PO BID #60 tab.er.12h 08/01/15 [Rx] Warfarin [Coumadin] 1.5 mg PO [id number] 01/15/16 [History] Aspirin 81 mg PO DAILY tab.chew 02/05/16 [Rx] Insulin Glargine,Hum.rec.anlog [Lantus Solostar] 40 unit SQ QPM 07/06/16 [ History] Insulin LISPRO [Humalog] 2 - 10 unit SQ TIDWM 07/06/16 [History] Nitroglycerin 0.4 mg SL Q5MIN PRN #0 tab.subl 07/10/16 [Rx] Oxygen 2 l NS AD 08/07/16 [History] Clopidogrel [Plavix] 75 mg PO DAILY #30 tablet 08/15/16 [Rx] Pantoprazole Sodium [Protonix] 40 mg PO DAILY #30 tablet.dr 08/15/16 [Rx] Melatonin 10 mg PO HS 09/19/16 [History] Anastrozole [Arimidex] 1 mg PO DAILY 11/04/16 [History] Cholecalciferol (D-3) [Vitamin D] 1,000 unit PO DAILY 11/04/16 [History] Isosorbide MONOnitrate [Isosorbide Mononitrate ER] 120 mg PO DAILY 11/04/16 [ History] Amlodipine Besylate 10 mg PO DAILY 02/05/17 [History] Warfarin [Coumadin] 3 mg PO NEGRETE 02/05/17 [History] Allergies phenylbutazone [From Butazolidin] Allergy (Verified 02/05/17 17:30) Rash amitriptyline [From Elavil] Adverse Reaction (Verified 02/05/17 17:30) Headache codeine Adverse Reaction (Verified 02/05/17 17:30) Headache desipramine Adverse Reaction (Verified 02/05/17 17:30) Headache lisinopril Adverse Reaction (Verified 02/05/17 17:30) Cough meperidine [From Demerol] Adverse Reaction (Verified 02/05/17 17:30) Headache nalbuphine Adverse Reaction (Verified 02/05/17 17:30) Headache Nortriptyline Adverse Reaction (Verified 02/05/17 17:30) Headache tiagabine Adverse Reaction (Verified 02/05/17 17:30) Headache All Systems PM: A 10-system review of systems was performed and is negative for pertinent findings except as documented above in the HPI. - Constitutional Vitals: Temp Pulse Resp BP Pulse Ox 97.6 F 112 20 115/62 100 02/05/17 17:25 02/05/17 19:10 02/05/17 19:10 02/05/17 19:10 02/05/17 19:10 PHYSICAL EXAMINATION: GENERAL: Adult female, lying in bed with on oxygen via nasal cannula, Alert, in mild acute respiratory distress, HEENT: NC/AT, EOMI, PERRLA, anicteric sclera, normal conjunctiva, supple, clear nares, moist mucous membranes, clear oropharynx, central uvula RESP: no chest wall tenderness with palpation, lungs are clear to auscultation bilaterally, good AE bilaterally, No crackles or wheeze CARDIO: pacemaker in place, irregularly irregular heart sounds with no murmurs , no JVD, no ankle edema GI: Soft, full, no tenderness, no organomegaly felt, normal bowel sounds heard MUSCULOSKELETAL: grossly normal movements bilaterally, no deformities noted, no calf tenderness NEUROLOGIC: CN 2-12 intact grossly. No motor/sensory deficit appreciated, PSYCHIATRY: AAO x 3. Mood is fair, SKIN: no skin rash Internal Med - H&P Results - Labs CBC & Chem 7: 02/05/17 17:59 02/05/17 17:59 - EKG Data -: EKG Interpreted by Myself Rate: tachycardia - Diagnostic Studies Chest x-ray Status: image reviewed by me
[2017-02-05] MEDS ORDERED: Dextrose Gel 15 GM PO PRN ×2 (19:33)
[2017-02-05] MEDS ORDERED: D5% in Water 1,000 ML IVC PRN (19:33)
[2017-02-05] MEDS ORDERED: *HR* Dextrose 50 % in Water (Syg) 50 ML SYRINGE IVP PRN (19:33)
[2017-02-05] MEDS: Ranolazine 500 MG TAB.ER.12H PO SCH (23:34)
[2017-02-05] MEDS: Melatonin 3 MG TABLET PO SCH (23:34)
[2017-02-05] MEDS ORDERED: 0.9 % Sodium Chloride 500 ML ONE (23:40)
[2017-02-05] MEDS: Insulin LISPRO 300 UNITS/3 ML VIAL SQ SCH (23:51)
[2017-02-06] MEDS: Insulin LISPRO 300 UNITS/3 ML VIAL SQ SCH ×5 (02:27→20:31)
[2017-02-06] MEDS ORDERED: Potassium Chloride 40 MEQ, Lidocaine 1% 2 ML in D5% in Water 500 ML IVPB ONE (04:47)
[2017-02-06 05:37] LABS: Hematocrit 41.6 % (35.3-44.9); Hemoglobin 14.3 g/dL (11.5-15.4); Mean Corpuscular HGB Conc 34.4 g/dL (31.6-35.5); Mean Corpuscular Hemoglobin 25.9 pg (28.0-33.3); Mean Corpuscular Volume 75.2 fL (83.0-100.0); Mean Platelet Volume 10.2 fL (9.4-12.4); Platelet Count 200 K/mcL (140-400); Red Blood Count 5.53 M/mcL (3.82-4.97); Red Cell Distribution Width 15.5 % (11.5-14.5)
[2017-02-06 05:51] LABS: Calcium 9.8 mg/dL (8.6-10.8); Magnesium 1.7 mg/dL (1.6-2.6); Potassium 2.7 mEq/L (3.5-4.5)
[2017-02-06 05:57] LABS: Prothrombin Time 33.2 Seconds (9.4-12.1)
[2017-02-06] MEDS: Ranolazine 500 MG TAB.ER.12H PO SCH ×2 (07:47→20:31)
[2017-02-06] MEDS: Isosorbide MONOnitrate (24 HR) 60 MG TAB.ER.24H PO SCH (07:47)
[2017-02-06] MEDS: Anastrozole 1 MG TABLET PO SCH (07:48)
[2017-02-06] MEDS: Aspirin 81 MG TAB.CHEW PO SCH (07:48)
[2017-02-06] MEDS: Cholecalciferol (D-3) 1,000 UNIT TABLET PO SCH (07:48)
[2017-02-06] MEDS ORDERED: amLODIPine 5 MG TABLET PO SCH (09:00)
--- NOTE | 2017-02-06 13:40 | Internal Med Progress Note ---
Date of Encounter: 02/06/17 Time of Encounter: 13:40 - Assessment and plan (1) Anticoagulated on Coumadin Current Visit: Yes Status: Acute Assessment and plan: Resumed Coumadin anticoagulation. We will give 1 mg today. Dosing per pharmacy tomorrow. Daily INR. (2) COPD (chronic obstructive pulmonary disease) Current Visit: Yes Status: Chronic Assessment and plan: Inhaled Atrovent and ipratropium as needed for shortness of breath. No evidence of exacerbation. Qualifiers: COPD type: chronic bronchitis Chronic bronchitis type: simple Qualified Code(s): J41.0 - Simple chronic bronchitis (3) Atrial fibrillation with rapid ventricular response Current Visit: No Status: Chronic Assessment and plan: Patient is currently on Cardizem drip. Heart rate is better controlled. We will transition to oral. We will titrate off the Cardizem drip and start 30 mg Cardizem every 6 hours. Monitor on telemetry. (4) Hypokalemia Current Visit: Yes Status: Acute Assessment and plan: We will replete with IV and oral potassium. Check magnesium level and potassium in the morning. (5) Elevated troponin Current Visit: Yes Status: Acute Assessment and plan: Possibly secondary to demand ischemia due to rapid heart rate. We will continue to trend troponin. (6) DVT prophylaxis Current Visit: No Status: Acute Assessment and plan: Fully anticoagulated with Coumadin - Subjective Interval history: 02/06/2017: Patient reported sudden onset rapid palpitations in the substernal area associated with chest tightness, now palpitations have resolved, denies chest pain nausea and diaphoresis. - Constitutional Vitals: Temp Pulse Resp BP Pulse Ox 98.3 F 96 18 93/55 96 02/06/17 11:00 02/06/17 11:00 02/06/17 11:00 02/06/17 11:00 02/06/17 11:00 General appearance: Present: A&O X 3 - Eye Eye exam: Present: PERRL, conjuntiva pink, sclera anicteric Pupils: Present: PERRL - Respiratory Respiratory exam: Present: CTAB. Absent: accessory muscle use, rales, rhonchi, wheezes - Cardiovascular Cardiovascular exam: Present: irregular rhythm, +S1, +S2. Absent: diastolic murmur, gallop, rubs, systolic murmur - GI/Abdominal GI/Abdominal exam: Present: normal bowel sounds, soft, no peritoneal signs. Absent: distended, tenderness - Extremities Exam Extremities exam: Present: warm, radial pulses palpable and symetrical. Absent : calf tenderness, cyanotic, pedal edema - Skin Skin exam: Present: dry, intact Internal Medicine: Result - Labs CBC & Chem 7: 02/06/17 05:23 02/06/17 13:29 Labs: Short CBC 02/06/17 Range/Units 05:23 WBC 10.7 (4.3-11.1) K/mcL Hgb 14.3 (11.5-15.4) g/dL Hct 41.6 (35.3-44.9) % Plt Count 200 (140-400) K/mcL BMP 02/06/17 02/06/17 05:23 08:45 Sodium 133 L Potassium 2.7 L 3.0 L Chloride 92 L Carbon Dioxide 25 BUN 62 H Creatinine 1.37 H Glucose 308 H Calcium 9.8 Cardiac Enzymes 02/06/17 Range/Units 08:45 Troponin I 0.15 H* (0-0.03) ng/mL - ABG Interpretation ABG results: PT/INR, D-dimer PT 33.2 Seconds (9.4-12.1) H 02/06/17 05:23 Consult Discharge Plan - Plan Referrals: Adalberto Quijano MD [Primary Care Provider] - 02/13/17 9:45 am
--- NOTE | 2017-02-06 16:35 | Electrocardiograph Report ---
[address] [address] Test Date: 2017-02-05 Pat Name: Miriam Fischer Department: 104 Room: 2A48 Gender: F Penetration Tester: : [id number] Requested By: Mo Glover Order Number: [id number] Reading MD: Loyda Neville Measurements Intervals [place] Rate: 137 P: LA: 0 QRS: -25 QRSD: 98 T: 144 QT: 327 QTc: 407 Interpretive Statements ATRIAL FIBRILLATION WITH RAPID VENTRICULAR RESPONSE BORDERLINE LEFT AXIS DEVIATION MODERATE VOLTAGE CRITERIA FOR LVH, CONSIDER NORMAL VARIANT ST DEVIATION AND MODERATE T-WAVE ABNORMALITY, CONSIDER LATERAL ISCHEMIA Electronically Signed On 02-06-2017 16:34:09 EDT by Loyda Neville
[2017-02-06] MEDS: Insulin DETEMIR 100 UNIT/ML X5UNITS SQ SCH (17:01)
[2017-02-06] MEDS: Potassium Chloride Elixir 20 MEQ/15 ML UDC PO SCH (17:44)
[2017-02-06] MEDS ORDERED: *HR* Warfarin 1 MG TABLET PO ONE (18:00)
[2017-02-06] MEDS: Melatonin 3 MG TABLET PO SCH (20:31)
[2017-02-07] MEDS ORDERED: Warfarin perPT PO PRN
[2017-02-07 05:01] LABS: Basophils % 0.3 %; Eosinophils # 0.4 K/mcL (0.0-0.6); Eosinophils % 4.2 %; Hematocrit 42.3 % (35.3-44.9); Hemoglobin 13.9 g/dL (11.5-15.4); Immature Granulocytes % 1.1 % (0-4); Lymphocytes # 1.9 K/mcL (0.6-4.6); Lymphocytes % 19.4 %; Mean Corpuscular HGB Conc 32.9 g/dL (31.6-35.5); Mean Corpuscular Hemoglobin 25.3 pg (28.0-33.3); Mean Platelet Volume 10.4 fL (9.4-12.4); Monocytes # 0.9 K/mcL (0.0-1.3); Monocytes % 8.6 %; Neutrophils # 6.6 K/mcL (1.6-8.9); Platelet Count 198 K/mcL (140-400); Red Blood Count 5.49 M/mcL (3.82-4.97); Red Cell Distribution Width 15.9 % (11.5-14.5); Segmented Neutrophils % 66.4 %
[2017-02-07 05:13] LABS: Calcium 9.6 mg/dL (8.6-10.8); Magnesium 2.2 mg/dL (1.6-2.6); Potassium 2.9 mEq/L (3.5-4.5)
[2017-02-07] MEDS ORDERED: Potassium Chloride 40 MEQ, Lidocaine 1% 2 ML in D5% in Water 500 ML IVPB ONE (07:57)
[2017-02-07] MEDS: Potassium Chloride Elixir 20 MEQ/15 ML UDC PO SCH ×2 (08:27→17:15)
[2017-02-07] MEDS: Anastrozole 1 MG TABLET PO SCH (08:28)
[2017-02-07] MEDS: Isosorbide MONOnitrate (24 HR) 60 MG TAB.ER.24H PO SCH (08:28)
[2017-02-07] MEDS: Cholecalciferol (D-3) 1,000 UNIT TABLET PO SCH (08:28)
[2017-02-07] MEDS: Ranolazine 500 MG TAB.ER.12H PO SCH ×2 (08:28→20:44)
[2017-02-07] MEDS: Aspirin 81 MG TAB.CHEW PO SCH (08:28)
[2017-02-07] MEDS: Insulin LISPRO 300 UNITS/3 ML VIAL SQ SCH ×4 (08:37→20:48)
[2017-02-07] MEDS: Diltiazem CD (24hr) 120 MG CAPSULE PO SCH (11:33)
--- NOTE | 2017-02-07 12:34 | Internal Med Progress Note ---
Date of Encounter: 02/07/17 Time of Encounter: 12:31 - Subjective Interval history: Pt seen and examined with family present at bedside. reports of feeling better and eating lunch at this time. reports of chronic constipation for which she takes metamucil. Denies any discomfort at this time. Rate controlled. Will switch to Cardizem 120mg PO qd No overnight issues reported. Pt states she can ambulate without any difficulties and is independent at home. - Assessment and plan (1) Anticoagulated on Coumadin Current Visit: Yes Status: Acute Assessment and plan: INR: 3.0 will continue coumadin pharmacist to dose coumadin monitor INR, goal INR: 2-3 (2) COPD (chronic obstructive pulmonary disease) Current Visit: Yes Status: Chronic Assessment and plan: No evidence of exacerbation. Inhaled Atrovent and ipratropium as needed for shortness of breath. Qualifiers: COPD type: chronic bronchitis Chronic bronchitis type: simple Qualified Code(s): J41.0 - Simple chronic bronchitis (3) Atrial fibrillation with rapid ventricular response Current Visit: No Status: Chronic Assessment and plan: Off Cardizem gtt rate controlled with cardizem 30mg PO q6h, will start cardizem 120mg PO qd today continue telemonitoring will adjust therapy as needed (4) Hypokalemia Current Visit: Yes Status: Acute Assessment and plan: We will replete with IV and oral potassium. continue to monitor electrolytes and replace as needed (5) Elevated troponin Current Visit: Yes Status: Acute Assessment and plan: Possibly secondary to demand ischemia due to rapid heart rate. We will continue to trend troponin. (6) DVT prophylaxis Current Visit: No Status: Acute Assessment and plan: Fully anticoagulated with Coumadin (7) Hypertension Noted to be hypertensive will add Metoprolol 25mg PO q12h closely monitor HR and BP hydralazine 10mg IV q6h PRN SBP>160 - Constitutional Vitals: Temp Pulse Resp BP Pulse Ox 98.8 F 111 18 162/116 95 02/07/17 11:13 02/07/17 11:13 02/07/17 11:13 02/07/17 11:13 02/07/17 11:13 General appearance: Present: A&O X 3, no acute distress, obese, answers questions appropriately - Head Head exam: Present: atraumatic, normocephalic - Eye Eye exam: Present: normal appearance, conjuntiva pink, sclera anicteric - Respiratory Respiratory exam: Present: CTAB. Absent: respiratory distress, wheezes - Cardiovascular Cardiovascular exam: Present: irregular rhythm, +S1, +S2 - GI/Abdominal GI/Abdominal exam: Present: distended (obese), normal bowel sounds, soft. Absent: tenderness - Extremities Exam Extremities exam: Present: warm, radial pulses palpable and symetrical. Absent : calf tenderness, pedal edema Internal Medicine: Result - Labs CBC & Chem 7: 02/07/17 04:38 02/07/17 04:38 Labs: Short CBC 02/07/17 Range/Units 04:38 WBC 9.9 (4.3-11.1) K/mcL Hgb 13.9 (11.5-15.4) g/dL Hct 42.3 (35.3-44.9) % Plt Count 198 (140-400) K/mcL Neutrophils # 6.6 (1.6-8.9) K/mcL BMP 02/06/17 02/07/17 13:29 04:38 Sodium 143 D Potassium 3.2 L 2.9 L Chloride 101 Carbon Dioxide 30 H BUN 43 H D Creatinine 1.16 H Glucose 66 L Calcium 9.6 Cardiac Enzymes 02/07/17 Range/Units 04:38 Troponin I 0.11 H* (0-0.03) ng/mL - ABG Interpretation ABG results: PT/INR, D-dimer PT 33.2 Seconds (9.4-12.1) H 02/06/17 05:23 Consult Discharge Plan - Plan Referrals: Adalberto Quijano MD [Primary Care Provider] - 02/13/17 9:45 am
[2017-02-07] MEDS: Psyllium 1 PACKET POWD.PACK PO SCH ×2 (16:00→20:44)
[2017-02-07] MEDS: Insulin DETEMIR 100 UNIT/ML X5UNITS SQ SCH (17:15)
[2017-02-07] MEDS: Melatonin 3 MG TABLET PO SCH (20:44)
[2017-02-08 04:18] LABS: Basophils % 0.2 %; Eosinophils # 0.4 K/mcL (0.0-0.6); Eosinophils % 5.2 %; Immature Granulocytes % 0.9 % (0-4); Lymphocytes # 1.7 K/mcL (0.6-4.6); Lymphocytes % 20.3 %; Mean Corpuscular HGB Conc 33.1 g/dL (31.6-35.5); Mean Corpuscular Hemoglobin 26.2 pg (28.0-33.3); Mean Corpuscular Volume 79.1 fL (83.0-100.0); Mean Platelet Volume 10.9 fL (9.4-12.4); Monocytes # 0.6 K/mcL (0.0-1.3); Monocytes % 7.3 %; Neutrophils # 5.7 K/mcL (1.6-8.9); Platelet Count 162 K/mcL (140-400); Red Blood Count 4.55 M/mcL (3.82-4.97); Red Cell Distribution Width 16.1 % (11.5-14.5); Segmented Neutrophils % 66.1 %
[2017-02-08 04:22] LABS: INR 2.4; Prothrombin Time 26.4 Seconds (9.4-12.1)
[2017-02-08 04:31] LABS: Hemoglobin 11.9 g/dL (11.5-15.4)
[2017-02-08 04:33] LABS: BUN/Creatinine Ratio 31 (6-26); Blood Urea Nitrogen 32 mg/dL (7-20); Calcium 9.1 mg/dL (8.6-10.8); Carbon Dioxide 27 mEq/L (19-29); Chloride 102 mEq/L (98-109); Glucose 209 mg/dL (70-99); Magnesium 1.8 mg/dL (1.6-2.6); Osmolality,Calculated 299 (280-300); Potassium 3.3 mEq/L (3.5-4.5); Sodium 138 mEq/L (136-145); eGFR For African Americans > 60 (> 60); eGFR For Non-African Americans 52 (> 60)
[2017-02-08] MEDS: Aspirin 81 MG TAB.CHEW PO SCH (08:05)
[2017-02-08] MEDS: Isosorbide MONOnitrate (24 HR) 60 MG TAB.ER.24H PO SCH (08:05)
[2017-02-08] MEDS: Potassium Chloride Elixir 20 MEQ/15 ML UDC PO SCH ×2 (08:05→16:55)
[2017-02-08] MEDS: Psyllium 1 PACKET POWD.PACK PO SCH ×3 (08:06→21:28)
[2017-02-08] MEDS: Cholecalciferol (D-3) 1,000 UNIT TABLET PO SCH (08:06)
[2017-02-08] MEDS: Anastrozole 1 MG TABLET PO SCH (08:06)
[2017-02-08] MEDS: Ranolazine 500 MG TAB.ER.12H PO SCH ×2 (08:06→21:28)
[2017-02-08] MEDS: Diltiazem CD (24hr) 120 MG CAPSULE PO SCH ×3 (08:13→09:10)
[2017-02-08] MEDS: Insulin LISPRO 300 UNITS/3 ML VIAL SQ SCH ×4 (08:14→22:00)
--- NOTE | 2017-02-08 13:04 | Internal Med Progress Note ---
Date of Encounter: 02/08/17 Time of Encounter: 12:05 - Subjective Interval history: Pt seen and examined. Resting in bed and noted to remain tachycardic with HR in low 100s. Denies any discomfort at this time No overnight issues reported. Pt states she can ambulate without any difficulties and is independent at home. - Assessment and plan (1) Anticoagulated on Coumadin Current Visit: Yes Status: Acute Assessment and plan: INR: 2.4 will continue coumadin pharmacist to dose coumadin monitor INR, goal INR: 2-3 (2) COPD (chronic obstructive pulmonary disease) Current Visit: Yes Status: Chronic Assessment and plan: No evidence of exacerbation. Inhaled Atrovent and ipratropium as needed for shortness of breath. Qualifiers: COPD type: chronic bronchitis Chronic bronchitis type: simple Qualified Code(s): J41.0 - Simple chronic bronchitis (3) Atrial fibrillation with rapid ventricular response Current Visit: No Status: Chronic Assessment and plan: Off Cardizem gtt noted to remain tachycardic will increase Cardizem to 180mg PO qd closely monitor once rate is controlled with goal HR <100, pt will be discharged. LIkely d/c in am will adjust therapy as needed (4) Hypokalemia Current Visit: Yes Status: Acute Assessment and plan: We will replete with oral potassium. continue to monitor electrolytes and replace as needed (5) Elevated troponin Current Visit: Yes Status: Acute Assessment and plan: demand ischemia and secondary to AFib Trended down asymptomatic (6) DVT prophylaxis Current Visit: No Status: Acute Assessment and plan: Fully anticoagulated with Coumadin (7) Hypertension BP within acceptable range closely monitor HR and BP hydralazine 10mg IV q6h PRN SBP>160 continue home meds - Constitutional Vitals: Temp Pulse Resp BP Pulse Ox 97.7 F 102 16 124/51 97 02/08/17 10:29 02/08/17 10:29 02/08/17 10:29 02/08/17 10:29 02/08/17 10:29 General appearance: Present: A&O X 3, no acute distress, obese, answers questions appropriately - Head Head exam: Present: atraumatic, normocephalic - Eye Eye exam: Present: normal appearance, conjuntiva pink, sclera anicteric - Respiratory Respiratory exam: Present: CTAB. Absent: accessory muscle use, rales, rhonchi, wheezes - Cardiovascular Cardiovascular exam: Present: irregular rhythm, +S1, +S2, tachycardia - GI/Abdominal GI/Abdominal exam: Present: normal bowel sounds, soft, no peritoneal signs. Absent: distended, tenderness - Extremities Exam Extremities exam: Present: warm, radial pulses palpable and symetrical. Absent : calf tenderness, cyanotic, pedal edema - Neurological Exam Neurological exam: Present: alert, oriented X3 - Psychiatric Psychiatric exam: Present: normal affect, normal mood Internal Medicine: Result - Labs CBC & Chem 7: 02/08/17 03:52 02/08/17 03:52 Labs: Short CBC 02/08/17 Range/Units 03:52 WBC 8.5 (4.3-11.1) K/mcL Hgb 11.9 D (11.5-15.4) g/dL Hct 36.0 (35.3-44.9) % Plt Count 162 (140-400) K/mcL Neutrophils # 5.7 (1.6-8.9) K/mcL BMP 02/08/17 03:52 Sodium 138 Potassium 3.3 L Chloride 102 Carbon Dioxide 27 BUN 32 H D Creatinine 1.04 Glucose 209 H Calcium 9.1 - ABG Interpretation ABG results: PT/INR, D-dimer PT 26.4 Seconds (9.4-12.1) H 02/08/17 03:52 Consult Discharge Plan - Plan Referrals: Adalberto Quijano MD [Primary Care Provider] - 02/13/17 9:45 am
[2017-02-08] MEDS ORDERED: Magnesium Sulfate 1 GM in D5% in Water 100 ML IVPB ONE (14:00)
[2017-02-08] MEDS: Nitroglycerin 0.4 MG TAB.SUBL SL PRN ×3 (14:09→14:20)
[2017-02-08] MEDS ORDERED: *HR* Morphine 2 MG/ML SYRINGE IVP STA ×2 (14:28→15:50)
[2017-02-08] MEDS ORDERED: Aspirin 81 MG TAB.CHEW PO STA (14:30)
[2017-02-08] MEDS ORDERED: Aspirin 81 MG TAB.CHEW ONE (14:37)
[2017-02-08] MEDS ORDERED: *HR* Morphine 2 MG/ML SYRINGE ONE (15:53)
[2017-02-08] MEDS: Insulin DETEMIR 100 UNIT/ML X5UNITS SQ SCH (16:55)
[2017-02-08] MEDS ORDERED: *HR* Warfarin 3 MG TABLET PO ONE (18:00)
[2017-02-08] MEDS ORDERED: *HR* Warfarin 3 MG TABLET PO SCH (18:00)
[2017-02-08] MEDS: Melatonin 3 MG TABLET PO SCH (21:28)
[2017-02-08] MEDS ORDERED: traZODone 50 MG TABLET PO ONE ×2 (22:53→23:07)
[2017-02-09 02:08] LABS: Basophils % 0.4 %; Eosinophils # 0.4 K/mcL (0.0-0.6); Eosinophils % 5.1 %; Hematocrit 33.7 % (35.3-44.9); Immature Granulocytes % 1.3 % (0-4); Lymphocytes # 1.7 K/mcL (0.6-4.6); Lymphocytes % 23.1 %; Mean Corpuscular HGB Conc 32.6 g/dL (31.6-35.5); Mean Corpuscular Hemoglobin 26.3 pg (28.0-33.3); Mean Corpuscular Volume 80.6 fL (83.0-100.0); Mean Platelet Volume 10.3 fL (9.4-12.4); Monocytes # 0.5 K/mcL (0.0-1.3); Monocytes % 6.5 %; Neutrophils # 4.7 K/mcL (1.6-8.9); Platelet Count 146 K/mcL (140-400); Red Blood Count 4.18 M/mcL (3.82-4.97); Red Cell Distribution Width 16.5 % (11.5-14.5); Segmented Neutrophils % 63.6 %
[2017-02-09 02:15] LABS: INR 1.8; Prothrombin Time 20.1 Seconds (9.4-12.1)
[2017-02-09 02:19] LABS: BUN/Creatinine Ratio 27 (6-26); Blood Urea Nitrogen 27 mg/dL (7-20); Calcium 8.8 mg/dL (8.6-10.8); Carbon Dioxide 28 mEq/L (19-29); Chloride 107 mEq/L (98-109); Glucose 158 mg/dL (70-99); Magnesium 1.9 mg/dL (1.6-2.6); Osmolality,Calculated 300 (280-300); Phosphorous 2.7 mg/dL (2.3-4.7); Potassium 3.8 mEq/L (3.5-4.5); Sodium 141 mEq/L (136-145); eGFR For African Americans > 60 (> 60); eGFR For Non-African Americans 55 (> 60)
[2017-02-09] MEDS ORDERED: Diltiazem CD (24hr) 180 MG CAPSULE PO SCH (09:00)
[2017-02-09] MEDS: Potassium Chloride Elixir 20 MEQ/15 ML UDC PO SCH (09:21)
[2017-02-09] MEDS: Ranolazine 500 MG TAB.ER.12H PO SCH (09:21)
[2017-02-09] MEDS: Cholecalciferol (D-3) 1,000 UNIT TABLET PO SCH (09:22)
[2017-02-09] MEDS: Aspirin 81 MG TAB.CHEW PO SCH (09:22)
[2017-02-09] MEDS: Psyllium 1 PACKET POWD.PACK PO SCH (09:22)
[2017-02-09] MEDS: Isosorbide MONOnitrate (24 HR) 60 MG TAB.ER.24H PO SCH (09:22)
[2017-02-09] MEDS: Insulin LISPRO 300 UNITS/3 ML VIAL SQ SCH (09:23)
[2017-02-09] MEDS: Anastrozole 1 MG TABLET PO SCH (09:23)
--- NOTE | 2017-02-09 09:45 | Discharge Summary ---
Date of Encounter: 02/09/17 Time of Encounter: 09:05 - Discharge Medications Prescriptions: Diltiazem HCl [Diltiazem ER] 180 mg PO DAILY #30 cap.er.deg Home Medications: Escitalopram [Lexapro] 20 mg PO QAM 05/16/15 [History] Rosuvastatin [Crestor] 40 mg PO QPM 05/16/15 [History] Ranolazine [Ranexa] 1,000 mg PO BID #60 tab.er.12h 08/01/15 [Rx] Warfarin [Coumadin] 1.5 mg PO MOTUWETHFRSA 01/15/16 [History] Aspirin 81 mg PO DAILY tab.chew 02/05/16 [Rx] Insulin Glargine,Hum.rec.anlog [Lantus Solostar] 40 unit SQ QPM 07/06/16 [ History] Insulin LISPRO [Humalog] 2 - 10 unit SQ TIDWM 07/06/16 [History] Nitroglycerin 0.4 mg SL Q5MIN PRN #0 tab.subl 07/10/16 [Rx] Oxygen 2 l NS AD 08/07/16 [History] Clopidogrel [Plavix] 75 mg PO DAILY #30 tablet 08/15/16 [Rx] Pantoprazole Sodium [Protonix] 40 mg PO DAILY #30 tablet.dr 08/15/16 [Rx] Melatonin 10 mg PO HS 09/19/16 [History] Anastrozole [Arimidex] 1 mg PO DAILY 11/04/16 [History] Cholecalciferol (D-3) [Vitamin D] 1,000 unit PO DAILY 11/04/16 [History] Isosorbide MONOnitrate [Isosorbide Mononitrate ER] 120 mg PO DAILY 11/04/16 [ History] Amlodipine Besylate 10 mg PO DAILY 02/05/17 [History] Warfarin [Coumadin] 3 mg PO NEGRETE 02/05/17 [History] Diltiazem HCl [Diltiazem ER] 180 mg PO DAILY #30 cap.er.deg 02/09/17 [Rx] Allergies/Adverse Reactions: Allergies phenylbutazone [From Butazolidin] Allergy (Verified 02/05/17 17:30) Rash amitriptyline [From Elavil] Adverse Reaction (Verified 02/05/17 17:30) Headache codeine Adverse Reaction (Verified 02/05/17 17:30) Headache desipramine Adverse Reaction (Verified 02/05/17 17:30) Headache lisinopril Adverse Reaction (Verified 02/05/17 17:30) Cough meperidine [From Demerol] Adverse Reaction (Verified 02/05/17 17:30) Headache nalbuphine Adverse Reaction (Verified 02/05/17 17:30) Headache Nortriptyline Adverse Reaction (Verified 02/05/17 17:30) Headache tiagabine Adverse Reaction (Verified 02/05/17 17:30) Headache Date of admission: 02/05/17 21:35 Primary care physician: Adalberto Quijano MD Consults: 02/08/17 13:57 Consult to Cardiology [CONS] Routine Comment: Consulting Provider: Cardiology Sandie Reason for Consult: afib with rvr Call Completed: Yes Discharging clinician: Aviva Bowles Anticipated date of discharge: 02/09/17 - Patient Status Disposition: Home, Self-Care Condition: Good Functional capacity at discharge: independent ambulation Overall status at discharge: patient is back to baseline - Discharge Instructions Follow Up With: Adalberto Quijano MD [Primary Care Provider] - 02/13/17 9:45 am Additional Instructions: Please follow up with your primary care physician within five days after your discharge from the hospital. Please follow up with your automation/controls manager within one week after your discharge from the hospital. Cardizem 180mg once a day has been added to your home medications. Please take this medication as prescribed. Please follow up with coumadin clinic as per your outpatient schedule. Please resume all your other home medications as prescribed by your primary care physician. - Diet and Activity Activity: resume usual activities as tolerated Diet: diabetic diet, low salt diet Hospital course: Ms. Fischer is a 71 year old female with PMH of paroxsmal Afib on coumadin, CHF , DM, HLD, HTN, CKD who was admitted for management of poorly rate controlled afib with rvr. She was started on IV cardizem gtt and transitioned to PO cardizem once rate control was achieved. She recently has had a pacemaker placed. Her hospital course was prolonged with difficulty in accomplishing appropriate rate control with PO cardizem, which is a chronic issue with the patient as per her records. She also complained of chest heaviness for which cardiac work up was done and cardiology was consulted. Pt had no EKG changes concerning for an acute WA and her TNI were trending down with resolution of her chest discomfort. At this time patient's HR is appropriately controlled and she is on anticoagulation with coumadin. She will be discharged to home with follow up with PCP and cardiology. Patient demonstrates understanding of her diagnosis and agrees with the discharge care and plan. - Time Spent with Patient Total time spent providing and/or coordinating discharge services: Greater than 30 minutes - Constitutional Vitals: Temp Pulse Resp BP Pulse Ox 98.1 F 103 15 113/73 98 02/09/17 07:01 02/09/17 07:01 02/09/17 07:01 02/09/17 07:01 02/09/17 07:01 General appearance: Present: A&O X 3, no acute distress, obese, answers questions appropriately - Head Head exam: Present: atraumatic, normocephalic - Eye Eye exam: Present: normal appearance, conjuntiva pink, sclera anicteric - Respiratory Respiratory exam: Present: CTAB. Absent: respiratory distress, wheezes - Cardiovascular Cardiovascular exam: Present: irregular rhythm, +S1, +S2 - GI/Abdominal GI/Abdominal exam: Present: normal bowel sounds, soft, no peritoneal signs. Absent: distended, tenderness - Extremities Exam Extremities exam: Present: warm, radial pulses palpable and symetrical. Absent : calf tenderness, cyanotic, pedal edema - Neurological Exam Neurological exam: Present: alert, oriented X3 - Psychiatric Psychiatric exam: Present: normal affect, normal mood
--- NOTE | 2017-02-09 09:47 | Cardiology Consult Note ---
<Maryellen Ferrara Marlen - Last Filed: 02/09/17 09:52> Date of Encounter: 02/09/17 Time of Encounter: 08:30 Assessment and Plan (1) Atrial fibrillation with rapid ventricular response Status: Chronic Presented to the ED with Afib with RVR--long standing hx of PAF. Required IV cardizem gtt for a few days, now on po. Now rate controlled on oral CCB, will resume home betablocker. Hx of PPM. Anticoagulated on Coumadin, INR followed by [facility]. No further recommendations from cardiac standpoint. Encouraged patient to monitor BP/HR at home. (2) Elevated troponin Status: Acute Mild, adynamic troponin elevation. Mild FLORES. Upon review, troponin has been chronically elevated. Patient reports chest discomfort with RVR, denies recurrent chest pain since admission. No acute ECG changes noted. Recommend medical management--continue asa, statin, nitrates, and plavix. Will resume home betablocker. TTE 01/25/17: EF 60%, mild cLVH, moderate LVDD, mild AR, normal wall motion. Recent LHC 01/08/17 demonstrated stable CAD with patent stents, medical management recommended. EF preserved per TTE with normal wall motion. No further inpatient testing recommended from Cardiology standpoint. Follow-up with [facility], will coordinate appt. Discussion w patient/family: The assessment and plan as outlined above was discussed with the patient and/or family members who expressed understanding and agreement. All questions were answered. Thank you for involving us in the care of your patient. Please call with any questions. The patient will be discussed and reviewed with Dr. Hewitt; anticipate Cardiology sign-off. Will coordinate appt in the outpatient setting. History of Present Illness Consult date: 02/09/17 Requesting physician: Aviva Bowles Consult reason: Afib, CP Chief complaint: Afib History of present illness: Ms. Fischer is a 71 year old female with PMH significant for CAD s/p PCI, tachybrady syndrome s/p PPM, Afib, factor 5 leiden, CVA, HTN, GERD, and HLD who presented to the ED with complaints of dyspnea and chest discomfort--patient reports she knew she was back in atrial fibrillation. Since admission, patient has been on cardizem gtt. She is now rate controlled on oral calcium channel jocelyne. She has no complaints upon exam this morning including chest pain or discomfort, dyspnea, palpitations, dizziness, or syncope. Reports chest discomfort only with tachycardia. She notes prior to admission she has been exercising and tolerating increase in activity without symptoms. Recent CV testing: [facility] 01/08/17: stable cCAD, patent stents, small vessel disease--medical management recommended PPM 01/09/17: dual chamber PPM implant TTE 01/25/17: EF 60%, mild cLVH, moderate LVDD, mild AR, normal wall motion Past Med Surg Social Fam HX - Past Medical History Attestation: Yes The following information was validated with the patient. Source: patient, old records reviewed Medical history: arthritis, atrial fibrillation, cancer, coronary artery disease , CVA, diabetes, GERD, hyperlipidemia, hypertension, myocardial infarction, osteoporosis, peripheral artery disease, renal disease, TIA, valvular heart disease Psychiatric history: depression - Past Surgical History Surgical History: angioplasty/stent (one 20 years ago and a recent one in 09/2016 ), breast surgery, carotid endarterectomy, cholecystectomy, orthopedic, other, pacemaker (3 weeks ago for sick sinus syndrome) - Social History Smoking Status: Never smoker Smokeless Tobacco Status: No Alcohol use: none, rarely Drug use: none - Family History Father Adopted: No Family Member Ethnicity: Non- Living Status: Hx Family Cardiac Disorders: Yes Hx Family Respiratory Disorders: No Hx Family Cancer: No Hx Family GI Disorders: No Hx Family Endocrine Disorder: Yes Hx Family Neuromuscular Disorders: No Hx Family Neurologic Disorders: Yes Hx Family HEENT Disorders: No Hx Family Autoimmune Disorders: Yes Mother Family Member Ethnicity: Non- Living Status: Hx Family Cardiac Disorders: Yes Hx Family Respiratory Disorders: No Hx Family Cancer: Yes Hx Family GI Disorders: No Hx Family Endocrine Disorder: Yes Hx Family Neuromuscular Disorders: No Hx Family Neurologic Disorders: No Hx Family HEENT Disorders: No Hx Family Autoimmune Disorders: Yes (RA) Sister Adopted: No Living Status: Still Living Hx Family Cardiac Disorders: Yes Hx Family Respiratory Disorders: No Hx Family Cancer: No Hx Family GI Disorders: No Hx Family Endocrine Disorder: Yes Hx Family Neuromuscular Disorders: No Hx Family Neurologic Disorders: Yes Hx Family HEENT Disorders: No Hx Family Autoimmune Disorders: No Brother Adopted: No Living Status: Still Living Hx Family Cardiac Disorders: Yes Hx Family Respiratory Disorders: No Hx Family Cancer: No Hx Family GI Disorders: No Hx Family Endocrine Disorder: No Hx Family Neuromuscular Disorders: No Hx Family Neurologic Disorders: No Hx Family HEENT Disorders: No Hx Family Autoimmune Disorders: No Medications and Allergies Escitalopram [Lexapro] 20 mg PO QAM 05/16/15 [History] Rosuvastatin [Crestor] 40 mg PO QPM 05/16/15 [History] Ranolazine [Ranexa] 1,000 mg PO BID #60 tab.er.12h 08/01/15 [Rx] Warfarin [Coumadin] 1.5 mg PO MOTUWETHFRSA 01/15/16 [History] Aspirin 81 mg PO DAILY tab.chew 02/05/16 [Rx] Insulin Glargine,Hum.rec.anlog [Lantus Solostar] 40 unit SQ QPM 07/06/16 [ History] Insulin LISPRO [Humalog] 2 - 10 unit SQ TIDWM 07/06/16 [History] Nitroglycerin 0.4 mg SL Q5MIN PRN #0 tab.subl 07/10/16 [Rx] Oxygen 2 l NS AD 08/07/16 [History] Clopidogrel [Plavix] 75 mg PO DAILY #30 tablet 08/15/16 [Rx] Pantoprazole Sodium [Protonix] 40 mg PO DAILY #30 tablet.dr 08/15/16 [Rx] Melatonin 10 mg PO HS 09/19/16 [History] Anastrozole [Arimidex] 1 mg PO DAILY 11/04/16 [History] Cholecalciferol (D-3) [Vitamin D] 1,000 unit PO DAILY 11/04/16 [History] Isosorbide MONOnitrate [Isosorbide Mononitrate ER] 120 mg PO DAILY 11/04/16 [ History] Amlodipine Besylate 10 mg PO DAILY 02/05/17 [History] Warfarin [Coumadin] 3 mg PO NEGRETE 02/05/17 [History] Diltiazem HCl [Diltiazem ER] 180 mg PO DAILY #30 cap.er.deg 02/09/17 [Rx] Allergies phenylbutazone [From Butazolidin] Allergy (Verified 02/05/17 17:30) Rash amitriptyline [From Elavil] Adverse Reaction (Verified 02/05/17 17:30) Headache codeine Adverse Reaction (Verified 02/05/17 17:30) Headache desipramine Adverse Reaction (Verified 02/05/17 17:30) Headache lisinopril Adverse Reaction (Verified 02/05/17 17:30) Cough meperidine [From Demerol] Adverse Reaction (Verified 02/05/17 17:30) Headache nalbuphine Adverse Reaction (Verified 02/05/17 17:30) Headache Nortriptyline Adverse Reaction (Verified 02/05/17 17:30) Headache tiagabine Adverse Reaction (Verified 02/05/17 17:30) Headache All Systems Review: A 10-system review of systems was performed and is negative for pertinent findings except as documented above in the HPI. - Cardiovascular Cardiovascular: as per HPI Physical Examination Vital Signs, Last 4 Hours Temp Pulse Resp BP Pulse Ox 02/09/17 07:01 98.1 F 103 15 113/73 98 General: Conversant, No Apparent Distress HEENT: Atraumatic, Normocephaly, Mucus Membranes Moist Neck: No JVD, Normal carotid pulses Cardiac: No Murmur, Other (irregularly irregular) Lungs: Normal Breath Sounds, No Wheeze, Rales, Rhonchi Neuro: Alert and responsive, No focal deficits noted Abdomen: Soft, Non-Tender Skin: No rashes noted on visualized skin Musculoskeletal: No Chest Wall Tenderness Extremities: No Clubbing, No Cyanosis, No Edema, Normal Pulses Results 02/09/17 01:46 02/09/17 01:46 Lab Results 02/08/17 02/08/17 02/09/17 14:28 20:02 01:46 WBC 7.4 Hgb 11.0 L Hct 33.7 L Plt Count 146 INR Sodium Potassium Chloride Carbon Dioxide BUN Creatinine Glucose Calcium Magnesium Troponin I 0.06 H* 0.06 H* 02/09/17 02/09/17 02/09/17 01:46 01:46 01:46 WBC Hgb Hct Plt Count INR 1.8 Sodium 141 Potassium 3.8 Chloride 107 Carbon Dioxide 28 BUN 27 H Creatinine 0.99 Glucose 158 H Calcium 8.8 Magnesium 1.9 Troponin I 0.06 H* - Imaging and Cardiology Chest Xray: report reviewed Echo: report reviewed Cardiac cath: report reviewed Other Results: 12 hour tele: avg HR=83 afib, paced at times. - EKG Interpretation EKG results cardiology: personally reviewed Consult Discharge Plan - Plan Instructions: Warfarin (By mouth), Atrial Fibrillation (DC), Urinary Tract Infection in Women (DC), Diabetes Mellitus Type 2 in Adults (DC), Chronic Hypertension (DC), Vitamin K in Foods (DC) Additional Instructions: Please follow up with your primary care physician within five days after your discharge from the hospital. Please follow up with your office manager receptionist within one week after your discharge from the hospital. Cardizem 180mg once a day has been added to your home medications. Please take this medication as prescribed. Please follow up with coumadin clinic as per your outpatient schedule. Please resume all your other home medications as prescribed by your primary care physician. Referrals: Adalberto Quijano MD [Primary Care Provider] - 02/13/17 9:45 am Prescriptions: Diltiazem HCl [Diltiazem ER] 180 mg PO DAILY #30 cap.er.deg <[email or web address] - Last Filed: 02/09/17 13:11> Date of Encounter: 02/09/17 Assessment and Plan Discussion w patient/family: The assessment and plan as outlined above was discussed with the patient and/or family members who expressed understanding and agreement. All questions were answered. Thank you for involving us in the care of your patient. Please call with any questions. History of Present Illness History of present illness: Ms. Fischer is a 71 year old female All Systems Review: A 10-system review of systems was performed and is negative for pertinent findings except as documented above in the HPI. Physical Examination Vital Signs, Last 4 Hours Temp Pulse Resp BP Pulse Ox 02/09/17 10:52 97.5 F L 102 14 109/71 99 Results 02/09/17 01:46 02/09/17 01:46 Lab Results 02/08/17 02/08/17 02/09/17 14:28 20:02 01:46 WBC 7.4 Hgb 11.0 L Hct 33.7 L Plt Count 146 INR Sodium Potassium Chloride Carbon Dioxide BUN Creatinine Glucose Calcium Magnesium Troponin I 0.06 H* 0.06 H* 02/09/17 02/09/17 02/09/17 01:46 01:46 01:46 WBC Hgb Hct Plt Count INR 1.8 Sodium 141 Potassium 3.8 Chloride 107 Carbon Dioxide 28 BUN 27 H Creatinine 0.99 Glucose 158 H Calcium 8.8 Magnesium 1.9 Troponin I 0.06 H* - Attending Attestation I examined this patient and my medical decision-making was reviewed with the SEAM STAY STITCHER/PA/Advanced Practice Nurse/Resident Physician. I agree with the documented findings, disposition and treatment plan. Recently seen as an outpatient and was doing well. Recently presented to the hospital with AF RVR. Recommend restarting her home dose of coreg and continuing diltiazem. She is feeling better and wants to go home. We will see her as an outpatient and consider having her undergo an EP evaluation for antiarrhythmic therapy. Will sign off.
[2017-02-09 11:01] VITALS: BP 109/71
--- NOTE | 2017-02-10 17:53 | Electrocardiograph Report ---
[place] [id number] Test Date: 2017-02-08 Pat Name: Miriam Fischer Department: 112 Room: 2A48 Gender: F Government Contracts Manager: : [id number] Requested By: Aviva Bowles Order Number: [id number] Reading MD: Loyda Neville Measurements Intervals [place] Rate: 59 P: [place]: 0 QRS: -70 QRSD: 167 T: 103 QT: 518 QTc: 518 Interpretive Statements ELECTRONIC VENTRICULAR PACEMAKER ABNORMAL RHYTHM ECG Electronically Signed On 02-10-2017 17:51:27 EDT by Loyda Neville
== END 2017-02-09 11:37 | disposition home or self-care (01) | DRG 309 ==
LOC: EMEROO 17:23 → 2ANU 17:23 → SUATTDRO 21:35
PROVIDERS: ADMIT Registered Nurse; ATTEND Internal Medicine

== ENCOUNTER 2017-07-05 19:37 | Observation (INO) ==
--- NOTE | 2017-07-05 19:59 | Emergency Department Note ---
Disposition Clinical Impression: Cardiac enzymes elevated, Renal insufficiency, Left bundle branch block Abdominal pain Qualifiers: Abdominal location: generalized Qualified Code(s): R10.84 - Generalized abdominal pain Chest pain Qualifiers: Chest pain type: unspecified Qualified Code(s): R07.9 - Chest pain, unspecified Disposition: Admitted As Inpatient Condition: Fair Referrals: Adalberto Quijano MD [Primary Care Provider] - Forms: ED Satisfaction Letter, Work/School Release Time of Disposition: 21:04 Abdominal Pain HPI - General Chief Complaint: ED Abdominal Pain Stated Complaint: Abdomnial Pain Time Seen by Provider: 07/05/17 19:40 Source: patient Mode of arrival: ambulatory Limitations: no limitations Nursing Notes Reviewed: Yes Vital Signs Reviewed: Yes - History of Present Illness HPI Narrative: 71-year-old female comes in complaining of abdominal pain. States she hasn't had a bowel movement in 6 days. She states her family doctor's been working on constipation but nothing seems to be working. Also had nausea vomiting. No fevers. Has had some back pain. 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 Consistency: constant Location: diffuse Pain Severity: moderate Pain Scale: 6 Quality: cramping Radiation: none Migration to: no migration Improves with: nothing Worsens with: nothing Associated symptoms: Reports: nausea, vomiting - Related Data Home Medications Medication Instructions Recorded Confirmed Escitalopram [Lexapro] 20 mg PO QAM 05/16/15 03/19/17 Rosuvastatin [Crestor] 40 mg PO QPM 05/16/15 03/19/17 Insulin Glargine,Hum.rec.anlog 40 unit SQ QPM 07/06/16 03/19/17 [Lantus Solostar] Insulin LISPRO [Humalog] 2 - 10 unit SQ TIDWM 07/06/16 03/19/17 Oxygen 2 l NS AD 08/07/16 03/19/17 Melatonin 10 mg PO HS 09/19/16 03/19/17 Anastrozole [Arimidex] 1 mg PO DAILY 11/04/16 03/19/17 Cholecalciferol (D-3) [Vitamin D] 1,000 unit PO DAILY 11/04/16 03/19/17 Isosorbide MONOnitrate [Isosorbide 120 mg PO DAILY 11/04/16 03/19/17 Mononitrate ER] Amlodipine Besylate 10 mg PO DAILY 02/05/17 03/19/17 Carvedilol 6.25 mg PO BID 03/19/17 03/19/17 Famotidine [Heartburn Prevention] 20 mg PO HS 03/19/17 03/19/17 Furosemide [Lasix] 60 mg PO BID 03/19/17 03/19/17 Linaclotide [Linzess] 290 mcg PO DAILY PRN 03/19/17 03/19/17 Pantoprazole Sodium [Protonix] 40 mg PO QAM 03/19/17 03/19/17 Potassium Chloride [K-Tab ER] 10 meq PO BID 03/19/17 03/19/17 traZODone [TraZODone] 50 mg PO HS PRN 03/19/17 03/19/17 Previous Rx's Medication Instructions Recorded Ranolazine [Ranexa] 1,000 mg PO BID #60 tab.er.12h 08/01/15 Aspirin 81 mg PO DAILY tab.chew 02/05/16 Nitroglycerin 0.4 mg SL Q5MIN PRN #0 tab.subl 07/10/16 Clopidogrel [Plavix] 75 mg PO DAILY #30 tablet 08/15/16 Diltiazem HCl [Diltiazem ER] 180 mg PO DAILY #30 cap.er.deg 02/09/17 Warfarin [Coumadin] 2 mg PO 1800 #30 tablet 03/20/17 Allergies Allergy/AdvReac Type Severity Reaction Status Date / Time phenylbutazone Allergy Rash Verified 03/19/17 17:55 [From Butazolidin] amitriptyline [From Elavil] AdvReac Headache Verified 03/19/17 17:55 codeine AdvReac Headache Verified 03/19/17 17:55 desipramine AdvReac Headache Verified 03/19/17 17:55 lisinopril AdvReac Cough Verified 03/19/17 17:55 meperidine [From Demerol] AdvReac Headache Verified 03/19/17 17:55 nalbuphine AdvReac Headache Verified 03/19/17 17:55 Nortriptyline AdvReac Headache Verified 03/19/17 17:55 tiagabine AdvReac Headache Verified 03/19/17 17:55 All systems ED: reviewed and negative except as stated. Constitutional: Denies: fever, chills, weakness, weight change Eyes: Denies: eye pain, eye discharge, vision change ENT ED: Denies: ear pain, throat pain, dental pain, hearing loss, epistaxis, congestion, dysphagia Cardiovascular: Denies: chest pain, palpitations, dyspnea on exertion, edema, syncope Respiratory: Denies: cough, dyspnea, wheezes, hemoptysis, stridor Gastrointestinal: Reports: abdominal pain, nausea, vomiting, constipation. Denies: diarrhea, hematemesis, melena, hematochezia Genitourinary: Denies: dysuria, frequency, hematuria, discharge Musculoskeletal: Denies: back pain, neck pain, arthralgia, myalgia Integumentary: Denies: rash, abrasion, lesions Neurological: Denies: headache, weakness, numbness, paresthesias, confusion, abnormal gait, vertigo Psychiatric: Denies: anxiety, depression, suicidal thoughts, homicidal thoughts , auditory hallucinations, visual hallucinations Endocrine: Denies: fatigue Hematological/Lymphatic: Denies: easy bleeding, easy bruising Allergic/Immunologic: Denies: facial swelling, urticaria Abdominal Pain PMH - Past Medical History Medical history: Reports: arthritis, atrial fibrillation, cancer, coronary artery disease, CVA, diabetes, GERD, hyperlipidemia, hypertension, myocardial infarction, osteoporosis, peripheral artery disease, renal disease, TIA, valvular heart disease Female Surgical History: Reports: carotid endarterectomy, cholecystectomy, pacemaker/AICD, Tonsillectomy, other PROPERTY DISPOSAL OFFICER history: Reports: no PROPERTY DISPOSAL OFFICER history Psychiatric history: Reports: depression - Social History Smoking status: Never smoker Alcohol use: Reports: none, rarely Drug use: Reports: none Physical Exam - General Limitations: no limitations General appearance: alert, in distress - Head Head exam: atraumatic, normocephalic, normal inspection - Eye Eye exam: Present: normal appearance, PERRL, EOMI - ENT ENT exam: normal exam, normal oropharynx, mucous membranes moist - Neck Neck exam: Present: normal inspection, full ROM, trachea midline - Chest Chest inspection: Present: normal inspection, symmetric chest wall rise - Respiratory Respiratory exam: Present: normal lung sounds bilaterally - Cardiovascular Cardiovascular exam: Present: regular rate, normal rhythm, normal heart sounds - Abdominal Exam Abdominal exam: Present: soft, tenderness. Absent: distention, guarding, rebound, rigidity - Extremities Exam Extremities exam: Present: normal inspection, full ROM. Absent: tenderness, pedal edema - Expanded Lower Extremity Exam Neurovascular/Tendon exam: Absent: motor deficit, sensory deficit, tendon deficit Gait: observed and normal - Back Exam Back exam: Present: normal inspection, full ROM. Absent: tenderness - Neurological Exam Neurological exam: Present: alert, oriented X3 - Psychiatric Psychiatric exam: Present: normal affect, normal mood - Skin Skin exam: Present: warm, dry, intact, normal color Course - Reevaluation(s) Reevaluation #1: 71-year-old female who comes in with complaints of abdominal pain and some intermittent chest pain. Workup included a slightly elevated troponin however her troponin seem to always be elevated. She does have a new left bundle branch block as compared to the previous EKG. Time: 21:24 - Consultations Consultation #1: Discussed with , admit he discussed heparinizing the patient however the patient is on warfarin, Plavix, aspirin. Time: 21:04 Consultation #2: Discussed with Dr. Jean, admit Time: 21:24 Vital Signs Temperature 97.5 F L 07/05/17 19:38 Pulse Rate 75 07/05/17 19:38 Respiratory Rate 13 07/05/17 19:38 Blood Pressure 124/68 07/05/17 19:38 O2 Sat by Pulse Oximetry 95 07/05/17 19:38 Temperature 97.5 F L 07/05/17 19:38 Pulse Rate 66 07/05/17 19:48 Respiratory Rate 18 07/05/17 19:48 Blood Pressure 143/74 07/05/17 19:48 O2 Sat by Pulse Oximetry 99 07/05/17 19:48 Oxygen Delivery Oxygen Delivery Room Air Abdominal Pain - Lab Data Lab results reviewed: Yes I reviewed the patient's lab results. Result diagrams: 07/05/17 20:25 07/05/17 20:25 Lab Results 07/05/17 07/05/17 07/05/17 Range/Units 20:25 20:25 20:25 WBC 11.8 H (4.3-11.1) K/mcL RBC 5.03 H (3.82-4.97) M/mcL Hgb 13.9 (11.5-15.4) g/dL Hct 40.3 (35.3-44.9) % MCV 80.1 L (83.0-100.0) fL MCH 27.6 L (28.0-33.3) pg MCHC 34.5 (31.6-35.5) g/dL RDW 15.4 H (11.5-14.5) % Plt Count 190 (140-400) K/mcL MPV 10.6 (9.4-12.4) fL Immature Gran % 0.8 (0-4) % Seg Neutrophils % 72.2 % Lymphocytes % 15.3 % Monocytes % 9.2 % Eosinophils % 2.0 % Basophils % 0.5 % Neutrophils # 8.5 (1.6-8.9) K/mcL Lymphocytes # 1.8 (0.6-4.6) K/mcL Monocytes # 1.1 (0.0-1.3) K/mcL Eosinophils # 0.2 (0.0-0.6) K/mcL Basophils # 0.1 (0.0-0.2) K/mcL Immature Plt Fraction 4.7 (1.1-6.1) % Sodium 136 (136-145) mEq/L Potassium 3.6 (3.5-4.5) mEq/L Chloride 100 (98-109) mEq/L Carbon Dioxide 23 (19-29) mEq/L BUN 44 H (7-20) mg/dL Creatinine 1.79 H (0.57-1.11) mg/dL Est GFR ( Amer) 34 L (> 60) Est GFR (Non-Af Amer) 28 L (> 60) BUN/Creatinine Ratio 25 (6-26) Glucose 99 (70-99) mg/dL Calculated Osmolality 293 (280-300) Lactic Acid (0.5-2.2) mmol/L Calcium 10.5 (8.6-10.8) mg/dL Total Bilirubin 0.5 (0.2-1.2) mg/dL Direct Bilirubin 0.2 (0.0-0.5) mg/dL Indirect Bilirubin 0.3 (0.0-1.2) mg/dL AST 18 (5-34) Units/L ALT 21 (0-55) Units/L Alkaline Phosphatase 58 (38-126) Units/L Troponin I 0.05 H* (0-0.03) ng/mL Serum Total Protein 7.6 (6.0-8.3) g/dL Albumin 4.1 (3.5-5.0) g/dL Globulin 3.5 (2.4-3.5) g/dL Albumin/Globulin Ratio 1.2 (1.1-2.2) Amylase 70 (25-125) Units/L Lipase 51 (8-78) Units/L Ur Specimen Adequacy Urine Color (Yellow) Urine Clarity (Clear) Urine pH (5.0-8.0) pH Units Ur Specific Bolt (1.010-1.025) Urine Protein (Neg-Trace) mg/dL Urine Glucose (UA) (Normal) mg/dL Urine Ketones (Negative) mg/dL Urine Blood (Negative) Urine Nitrite (Negative) Urine Bilirubin (Negative) Urine Urobilinogen (Normal) mg/dL Ur Leukocyte Esterase (Negative) Ur Culture Indicated? (NO) 07/05/17 07/05/17 Range/Units 20:32 20:35 WBC (4.3-11.1) K/mcL RBC (3.82-4.97) M/mcL Hgb (11.5-15.4) g/dL Hct (35.3-44.9) % MCV (83.0-100.0) fL MCH (28.0-33.3) pg MCHC (31.6-35.5) g/dL RDW (11.5-14.5) % Plt Count (140-400) K/mcL MPV (9.4-12.4) fL Immature Gran % (0-4) % Seg Neutrophils % % Lymphocytes % % Monocytes % % Eosinophils % % Basophils % % Neutrophils # (1.6-8.9) K/mcL Lymphocytes # (0.6-4.6) K/mcL Monocytes # (0.0-1.3) K/mcL Eosinophils # (0.0-0.6) K/mcL Basophils # (0.0-0.2) K/mcL Immature Plt Fraction (1.1-6.1) % Sodium (136-145) mEq/L Potassium (3.5-4.5) mEq/L Chloride (98-109) mEq/L Carbon Dioxide (19-29) mEq/L BUN (7-20) mg/dL Creatinine (0.57-1.11) mg/dL Est GFR ( Amer) (> 60) Est GFR (Non-Af Amer) (> 60) BUN/Creatinine Ratio (6-26) Glucose (70-99) mg/dL Calculated Osmolality (280-300) Lactic Acid 2.0 (0.5-2.2) mmol/L Calcium (8.6-10.8) mg/dL Total Bilirubin (0.2-1.2) mg/dL Direct Bilirubin (0.0-0.5) mg/dL Indirect Bilirubin (0.0-1.2) mg/dL AST (5-34) Units/L ALT (0-55) Units/L Alkaline Phosphatase (38-126) Units/L Troponin I (0-0.03) ng/mL Serum Total Protein (6.0-8.3) g/dL Albumin (3.5-5.0) g/dL Globulin (2.4-3.5) g/dL Albumin/Globulin Ratio (1.1-2.2) Amylase (25-125) Units/L Lipase (8-78) Units/L Ur Specimen Adequacy See below A Urine Color Yellow (Yellow) Urine Clarity Clear (Clear) Urine pH 5.5 (5.0-8.0) pH Units Ur Specific Bolt 1.019 (1.010-1.025) Urine Protein Negative (Neg-Trace) mg/dL Urine Glucose (UA) Normal (Normal) mg/dL Urine Ketones Negative (Negative) mg/dL Urine Blood Negative (Negative) Urine Nitrite Negative (Negative) Urine Bilirubin Negative (Negative) Urine Urobilinogen Normal (Normal) mg/dL Ur Leukocyte Esterase Negative (Negative) Ur Culture Indicated? NO (NO) - Radiology Data Radiology results reviewed: Yes I reviewed the patient's radiology results. Abdomen/Pelvis CT 07/05/17 19:56 IMPRESSION: 1. No acute abnormality in the abdomen or pelvis. 2. Unchanged 3.7 cm benign left adrenal myelolipoma. 3. 1.8 cm indeterminate right renal lesion mildly increased in size from 08/24/2016. Small indeterminate lesions in the left kidney. Recommend further evaluation with nonemergent renal ultrasound or contrast-enhanced MRI. Most likely these represent benign cysts. 4. Small sliding-type hiatal hernia. D/ / Charan Castaneda MD / Charan Castaneda MD Interpreting Provider: Charan Castaneda MD - EKG Data EKG attestation: Yes I reviewed and interpreted this EKG. EKG shows normal: sinus rhythm Rate: normal Rhythm: NSR [place]/QRS: LBBB When compared to previous EKG there are: changes noted (Ears to be a new left bundle branch block although the patient says she's had in the past. Previous EKG 03/19/2017 shows no QRS) Interpretation: other (Left bundle branch)
[2017-07-05 20:31] LABS: Basophils # 0.1 K/mcL (0.0-0.2); Basophils % 0.5 %; Eosinophils # 0.2 K/mcL (0.0-0.6); Hematocrit 40.3 % (35.3-44.9); Hemoglobin 13.9 g/dL (11.5-15.4); Immature Granulocytes % 0.8 % (0-4); Immature Platelets 4.7 % (1.1-6.1); Lymphocytes # 1.8 K/mcL (0.6-4.6); Lymphocytes % 15.3 %; Mean Corpuscular HGB Conc 34.5 g/dL (31.6-35.5); Mean Corpuscular Hemoglobin 27.6 pg (28.0-33.3); Mean Corpuscular Volume 80.1 fL (83.0-100.0); Mean Platelet Volume 10.6 fL (9.4-12.4); Monocytes # 1.1 K/mcL (0.0-1.3); Monocytes % 9.2 %; Neutrophils # 8.5 K/mcL (1.6-8.9); Platelet Count 190 K/mcL (140-400); Red Blood Count 5.03 M/mcL (3.82-4.97); Red Cell Distribution Width 15.4 % (11.5-14.5); Segmented Neutrophils % 72.2 %
[2017-07-05 20:38] LABS: Bilirubin,Urine Negative (Negative); Blood,Urine Negative (Negative); Clarity,Urine Clear (Clear); Color,Urine Yellow (Yellow); Glucose,Urine (UA) Normal (Normal); Ketones,Urine Negative (Negative); Leukocyte Esterase,Urine Negative (Negative); Nitrite,Urine Negative (Negative); PH,Urine 5.5 pH Units (5.0-8.0); Protein,Urine Negative (Neg-Trace); Specific Gravity,Urine 1.019 (1.010-1.025); Urobilinogen,Urine Normal (Normal)
[2017-07-05 20:51] LABS: Albumin 4.1 g/dL (3.5-5.0); Albumin/Globulin Ratio 1.2 (1.1-2.2); Bilirubin,Direct 0.2 mg/dL (0.0-0.5); Bilirubin,Indirect 0.3 mg/dL (0.0-1.2); Bilirubin,Total 0.5 mg/dL (0.2-1.2); Calcium 10.5 mg/dL (8.6-10.8); Globulin 3.5 g/dL (2.4-3.5); Potassium 3.6 mEq/L (3.5-4.5); Total Protein 7.6 g/dL (6.0-8.3)
[2017-07-05 21:19] LABS: INR 4.2
[2017-07-05 21:22] LABS: Activated Partial Thrombo Time 40.5 Seconds (26.0-36.0)
[2017-07-05 21:25] LABS: Prothrombin Time 47.2 Seconds (9.4-12.1)
[2017-07-05] MEDS ORDERED: Naloxone 0.4 MG/ML INJ IVP PRN (22:04)
[2017-07-05] MEDS ORDERED: Nitroglycerin 0.4 MG TAB.SUBL SL PRN (22:07)
[2017-07-05] MEDS ORDERED: traZODone 50 MG TABLET PO PRN (22:07)
[2017-07-05] MEDS ORDERED: D5% in Water 1,000 ML IVC PRN (22:11)
[2017-07-05] MEDS ORDERED: Dextrose Gel 15 GM PO PRN ×2 (22:11)
[2017-07-05] MEDS ORDERED: *HR* Dextrose 50 % in Water (Syg) 50 ML SYRINGE IVP PRN (22:11)
[2017-07-05] MEDS ORDERED: Famotidine 20 MG TABLET PO SCH (22:15)
[2017-07-05] MEDS: Ranolazine 500 MG TAB.ER.12H PO SCH (23:09)
[2017-07-05] MEDS ORDERED: Ondansetron 4 MG/2 ML VIAL IVP PRN (23:12)
[2017-07-05] MEDS ORDERED: *HR* HYDROcodone/Acet 5/325 mg TABLET PO PRN (23:13)
[2017-07-05] MEDS ORDERED: *HR* Morphine 2 MG/ML SYRINGE IVP PRN (23:13)
[2017-07-05] MEDS ORDERED: 0.9 % Sodium Chloride 1,000 ML IVC SCH (23:15)
--- NOTE | 2017-07-05 23:20 | Internal Med History&Physical ---
<Doe Zuleta - Last Filed: 07/05/17 23:15> Date of Encounter: 07/05/17 Time of Encounter: 23:15 Assessment and Plan (1) Acute gastritis Current visit: Yes Status: Acute abdominal pain, intermittent constipation, nausea and vomiting. CT abdomen and pelvis unremarkable. Continues to endorse nausea, last vomited this afternoon. Zofran has helped decrease discomfort. Has poor nutritional intake d/t discomfort. 0.9% NS @100ML/HR, H2 AND PPI ZOFRAN Q 8hrs manage pain with norco 5/325 Q4hrs prn and morphine 1mg Q6hrs prn clears diet Qualifiers: Qualified Code(s): K29.00 - Acute gastritis without bleeding (2) LBBB (left bundle branch block) Current visit: Yes Status: Acute New LBBB, and a troponin elevation. However, trop is chronically elevated. Cardio consulted and recommended adding heparin. Will hold heparin at this time as the patient has a supratherapeutic PT/INR and is on coumadin, plavix and ASA. hemodynamically stable, in no distress. (3) Chest pain Current visit: Yes Status: Acute h/o anginal chest pain. Reports it as intermittent and increasing with activity , slight troponin elevation, but it is chronically elevated, new LBBB on ekg. No active chest pain at this time. Hemodynamically stable. SL nitro PRN for CP. Had LHC in december 2016, 40% stenosis noted with no significant disease. consult cardio- to see tomorrow sl nitro prn for chest pain Qualifiers: Chest pain type: chest pain due to myocardial ischemia Ischemic chest pain type: unstable angina pectoris Qualified Code(s): I20.0 - Unstable angina (4) Elevated troponin Current visit: Yes Status: Acute Chronically elevated. Will trend troponins as she has a new LBBB on EKG. Cardiology consulted and will see tomorrow. Consult called in ED. (5) Factor V Leiden Current visit: Yes Status: Chronic h/o factor V leiden, CVA, TIA'S. On coumadin, continue with pharmacy to dose (6) Atrial fibrillation with rapid ventricular response Current visit: Yes Status: Acute Paced rhythm, on coumadin, ASA and plavix, Continue CCB and BB. 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 Continue BB and CCB Qualifiers: Hypertension type: essential hypertension Qualified Code(s): I10 - Essential (primary) hypertension (9) DVT prophylaxis Current visit: Yes Status: Acute on coumadin, and ASA Internal Medicine - H&P: HPI Chief complaint: abdominal pain, nausea, vomiting Admitted From: Home Plans for Post Hospital Care: Home History of present illness: Ms. Fischer is a 71 year old female with a PMH of arthritis, a-fib, breast cancer, CAD, CVA, DM, GERD, HLD, HTN, NV, osteoporosis, PAD, TIA, renal disease , valvular heart disease, pacer, factor V leiden. [facility] with abdominal pain, constipation, nausea and vomiting . She reports abdominal pain and constipation began approximately 3 weeks ago, and nausea began 1 week ago. She reports vomiting this morning with last episode this afternoon. Last Bm was yesterday. She is concerned because she has had poor nutritional intake for the last [address] abdomen and pelvis was normal. She is additionally reporting intermittent CP, troponin elevated at 0.05 Being admitted for further workup and evaluation. Past Med Surg Social Fam HX - Past Medical History Medical history: arthritis, atrial fibrillation, cancer, coronary artery disease , CVA, diabetes, GERD, hyperlipidemia, hypertension, myocardial infarction, osteoporosis, peripheral artery disease, renal disease, TIA, valvular heart disease Psychiatric history: depression - Past Surgical History Surgical History: breast surgery, pacemaker/AICD - Social History Smoking Status: Never smoker Smokeless Tobacco Status: No Alcohol use: none, rarely Drug use: none - Family History Father Adopted: No Family Member Ethnicity: Non- Living Status: Hx Family Cardiac Disorders: Yes Hx Family Respiratory Disorders: No Hx Family Cancer: No Hx Family GI Disorders: No Hx Family Endocrine Disorder: Yes Hx Family Neuromuscular Disorders: No Hx Family Neurologic Disorders: Yes Hx Family HEENT Disorders: No Hx Family Autoimmune Disorders: Yes Mother Family Member Ethnicity: Non- Living Status: Hx Family Cardiac Disorders: Yes Hx Family Respiratory Disorders: No Hx Family Cancer: Yes Hx Family GI Disorders: No Hx Family Endocrine Disorder: Yes Hx Family Neuromuscular Disorders: No Hx Family Neurologic Disorders: No Hx Family HEENT Disorders: No Hx Family Autoimmune Disorders: Yes (RA) Sister Adopted: No Living Status: Still Living Hx Family Cardiac Disorders: Yes Hx Family Respiratory Disorders: No Hx Family Cancer: No Hx Family GI Disorders: No Hx Family Endocrine Disorder: Yes Hx Family Neuromuscular Disorders: No Hx Family Neurologic Disorders: Yes Hx Family HEENT Disorders: No Hx Family Autoimmune Disorders: No Brother Adopted: No Living Status: Still Living Hx Family Cardiac Disorders: Yes Hx Family Respiratory Disorders: No Hx Family Cancer: No Hx Family GI Disorders: No Hx Family Endocrine Disorder: No Hx Family Neuromuscular Disorders: No Hx Family Neurologic Disorders: No Hx Family HEENT Disorders: No Hx Family Autoimmune Disorders: No Internal Medicine - H&P: Meds Escitalopram [Lexapro] 20 mg PO QAM 05/16/15 [History] Rosuvastatin [Crestor] 40 mg PO QPM 05/16/15 [History] Ranolazine [Ranexa] 1,000 mg PO BID #60 tab.er.12h 08/01/15 [Rx] Aspirin 81 mg PO DAILY tab.chew 02/05/16 [Rx] Insulin Glargine,Hum.rec.anlog [Lantus Solostar] 40 unit SQ QPM 07/06/16 [ History] Insulin LISPRO [Humalog] 2 - 10 unit SQ TIDWM 07/06/16 [History] Nitroglycerin 0.4 mg SL Q5MIN PRN #0 tab.subl 07/10/16 [Rx] Oxygen 2 l NS AD 08/07/16 [History] Clopidogrel [Plavix] 75 mg PO DAILY #30 tablet 08/15/16 [Rx] Melatonin 10 mg PO HS 09/19/16 [History] Anastrozole [Arimidex] 1 mg PO DAILY 11/04/16 [History] Cholecalciferol (D-3) [Vitamin D] 1,000 unit PO DAILY 11/04/16 [History] Isosorbide MONOnitrate [Isosorbide Mononitrate ER] 120 mg PO DAILY 11/04/16 [ History] Amlodipine Besylate 10 mg PO DAILY 02/05/17 [History] Diltiazem HCl [Diltiazem ER] 180 mg PO DAILY #30 cap.er.deg 02/09/17 [Rx] Carvedilol 6.25 mg PO BID 03/19/17 [History] Famotidine [Heartburn Prevention] 20 mg PO HS 03/19/17 [History] Furosemide [Lasix] 60 mg PO BID 03/19/17 [History] Linaclotide [Linzess] 290 mcg PO DAILY PRN 03/19/17 [History] Pantoprazole Sodium [Protonix] 40 mg PO QAM 03/19/17 [History] Potassium Chloride [K-Tab ER] 10 meq PO BID 03/19/17 [History] traZODone [TraZODone] 50 mg PO HS PRN 03/19/17 [History] Warfarin [Coumadin] 2 mg PO 1800 #30 tablet 03/20/17 [Rx] 3 Allergy/AdvReac Type Severity Reaction Status Date / Time phenylbutazone Allergy Rash Verified 03/19/17 17:55 [From Butazolidin] amitriptyline [From Elavil] AdvReac Headache Verified 03/19/17 17:55 codeine AdvReac Headache Verified 03/19/17 17:55 desipramine AdvReac Headache Verified 03/19/17 17:55 lisinopril AdvReac Cough Verified 03/19/17 17:55 meperidine [From Demerol] AdvReac Headache Verified 03/19/17 17:55 nalbuphine AdvReac Headache Verified 03/19/17 17:55 Nortriptyline AdvReac Headache Verified 03/19/17 17:55 tiagabine AdvReac Headache Verified 03/19/17 17:55 All Systems PM: A 10-system review of systems was performed and is negative for pertinent findings except as documented above in the HPI. - Constitutional Constitutional: fever(s) (subjective fevers; clammy), no chills, no night sweats , no weakness - EENT Eyes: no change in vision, no discharge, no pain, no photophobia Ears: no ear discharge, no ear pain, no tinnitus Nose, mouth and throat: no dysphagia, no nasal discharge, no neck pain, no sore throat - Cardiovascular Cardiovascular ROS IM: as per HPI, chest pain, no diaphoresis, no dyspnea, no dyspnea on exertion, no edema, no lightheadedness, no palpitations, no syncope - Respiratory Respiratory: no cough, no dyspnea, no wheezing, no excessive phlegm production - Gastrointestinal Gastrointestinal: as per HPI, abdominal pain (diffuse), constipation, nausea, vomiting, no diarrhea, no hematemesis, no hematochezia, no melena - Genitourinary Genitourinary: no change in urinary stream, no dysuria, no flank pain, no hematuria - Musculoskeletal Musculoskeletal ROS IM: no numbness, no tingling - Integumentary Integumentary IM: no rash, no unusual bruising - Neurological Neurological ROS: headache(s), no confusion, no convulsions, no focal weakness, no numbness, no tingling, no tremor(s) - Hematologic/Lymphatic Hematologic/Lymphatic: no easy bruising - Constitutional Vitals: Temp Pulse Resp BP Pulse Ox 97.8 F 73 17 119/65 97 07/05/17 23:06 07/05/17 23:06 07/05/17 23:06 07/05/17 23:06 07/05/17 23:06 General appearance: Present: cooperative, A&O X 3, no acute distress, answers questions appropriately - Head Head exam: Present: atraumatic, normocephalic - Eye Eye exam: Present: PERRL, conjuntiva pink, sclera anicteric Pupils: Present: PERRL - Neck Neck exam general surgery: Present: supple, trachea midline. Absent: lymphadenopathy - Respiratory Respiratory exam: Present: CTAB. Absent: accessory muscle use, rales, rhonchi, wheezes - Cardiovascular Cardiovascular exam: Present: RRR, +S1, +S2. Absent: diastolic murmur, gallop, rubs, systolic murmur - GI/Abdominal GI/Abdominal exam: Present: normal bowel sounds, soft, tenderness (diffuse), no peritoneal signs. Absent: distended, firm, guarding, pulsatile mass, rebound, rigid - Extremities Exam Extremities exam: Present: warm, radial pulses palpable and symmetrical. Absent : calf tenderness, cyanotic, pedal edema - Neurological Exam Neurological exam: Present: CN II-XII intact, oriented X3, no focal deficits. Absent: pronater drift, facial droop, speech deficit - Skin Skin exam: Present: dry, intact Internal Med - H&P Results - Labs CBC & Chem 7: 07/05/17 20:25 07/05/17 20:25 - Diagnostic Studies CT scan - abdomen Status: image reviewed by me Additional comments: no acute intraabdominal abnormalities <Robin Gómez - Last Filed: 07/06/17 02:25> Date of Encounter: 07/06/17 Internal Medicine - H&P: HPI History of present illness: Ms. Fischer is a 71 year old female All Systems PM: A 10-system review of systems was performed and is negative for pertinent findings except as documented above in the HPI. - Constitutional Vitals: Temp Pulse Resp BP Pulse Ox 97.8 F 73 17 119/65 97 07/05/17 23:06 07/05/17 23:06 07/05/17 23:06 07/05/17 23:06 07/05/17 23:06 Internal Med - H&P Results - Labs CBC & Chem 7: 07/05/17 20:25 07/05/17 20:25 - Attending Attestation I have seen and examined the patient independently. I have discussed with ELOCUTION TEACHER Mr Zuleta regarding the management plan. Agree with the documentation. Patient has abdominal pain with nausea vomiting for about 2 weeks. Abdominal pain worsening after eating. CT abdomen shows no acute change. Consider gastritis, either viral or ischemic. Will place patient on clear liquid diet, IV fluids, and symptomatic treatment. Patient also has chronic intermittent chest pain. EKG shows LBBB, which is not shown on the EKG 3 months ago. Will check 3 sets of troponin, cardiology consult informed by ER and will see patient.
[2017-07-05] MEDS: Insulin DETEMIR 100 UNIT/ML X5UNITS SQ SCH (23:34)
[2017-07-06 04:13] LABS: Hematocrit 37.3 % (35.3-44.9); Hemoglobin 12.9 g/dL (11.5-15.4); Mean Corpuscular HGB Conc 34.6 g/dL (31.6-35.5); Mean Corpuscular Hemoglobin 27.4 pg (28.0-33.3); Mean Corpuscular Volume 79.4 fL (83.0-100.0); Mean Platelet Volume 10.8 fL (9.4-12.4); Platelet Count 158 K/mcL (140-400); Red Cell Distribution Width 15.4 % (11.5-14.5)
[2017-07-06 04:17] LABS: INR 3.6; Prothrombin Time 39.3 Seconds (9.4-12.1)
[2017-07-06 04:31] LABS: Calcium 9.5 mg/dL (8.6-10.8); Potassium 3.4 mEq/L (3.5-4.5)
[2017-07-06] MEDS: 0.9 % Sodium Chloride 1,000 ML IVC SCH ×2 (05:46→13:38)
[2017-07-06] MEDS: Insulin LISPRO 300 UNITS/3 ML VIAL SQ SCH ×3 (08:20→17:18)
[2017-07-06] MEDS: Ranolazine 500 MG TAB.ER.12H PO SCH ×2 (08:49→21:27)
[2017-07-06] MEDS: Isosorbide MONOnitrate (24 HR) 60 MG TAB.ER.24H PO SCH (08:49)
[2017-07-06] MEDS: Aspirin 81 MG TAB.CHEW PO SCH (08:50)
[2017-07-06] MEDS: Furosemide 20 MG TABLET PO SCH ×2 (08:50→18:37)
[2017-07-06] MEDS: Anastrozole 1 MG TABLET PO SCH (08:50)
[2017-07-06] MEDS: Diltiazem CD (24hr) 180 MG CAPSULE PO SCH (08:50)
[2017-07-06] MEDS: amLODIPine 5 MG TABLET PO SCH (08:52)
--- NOTE | 2017-07-06 10:25 | Cardiology Consult Note ---
<ChilangoAmita - Last Filed: 07/06/17 11:27> Date of Encounter: 07/06/17 Time of Encounter: 08:30 Assessment and Plan (1) Acute gastritis Current Visit: Yes Status: Acute Per cardiology: -Admitted with acute gastritis. -Management per primary service. Qualifiers: Gastritis type: unspecified gastritis Qualified Code(s): K29.00 - Acute gastritis without bleeding (2) Elevated troponin Current Visit: Yes Status: Chronic Per cardiology: -Troponins 0.05, 0.06, 0.04. -Troponins flat and adynamic in the setting of acute gastritis, CKD. -Patient has chronically elevated troponins. -ECG with new left bundle branch block. -Reports chest achiness with nausea. Denies current achiness. -Denies exertional symtpoms. -Last [facility] 12/2016, see below. -Will check limited echo. -Do not suspect NSTEMI, suspect demand ischemia related to above. No cardiac rehab consult warranted at this time. (3) LBBB (left bundle branch block) Current Visit: Yes Status: Acute Per cardiology: -New left bundle branch block. -Denies current chest pain. -Troponins flat and adynamic. -Will check limited echo. (4) Chest discomfort Current Visit: Yes Status: Chronic Per cardiology: -Patient with known chronic chest discomfort. -Reports chest achiness associated with nause/vomiting. -Denies current chest achiness. -Troponins flat and adynamic. -ON imdur and ranexa. -Will check limited echo. (5) Diastolic dysfunction Current Visit: Yes Status: Chronic Per cardiology: -Known moderate diastolic dysfunction. -Euvolemic on exam. -Denies weight gain at home. -Denies shortness of breath. -Will continue to monitor. (6) CKD (chronic kidney disease) stage 3, GFR 30-59 ml/min Current Visit: No Status: Chronic Per cardiology: -KNown CKD. -Creatinine today 1.51. -Baseline creatinine 1.2-1.7 -Management per primary service. (7) Pacemaker Current Visit: No Status: Chronic Per cardiology: -Known pacemaker for tachybrady syndrome. -PPM was implanted 12/2016, per review of records has not had in office device check since implantation. -Will check device. -Will reschedule in office device checks. (8) CAD (coronary artery disease) Current Visit: No Status: Chronic Per cardiology: -Known CAD. -C 12/2016 with patent LAD stenting, proximal circumflex 50% stenosis, OM1 30% , patent proximal and mid RCA stents, mid RCA 40%, distal RCA 60%. -Last coronary intervention 09/2016 at [facility]. -On asa, statin, plavix. beta jocelyne, imdur and ranexa. -Last TTE 01/2017 with LVEF 60%, mild concentric LVH, atypical septal motion consistent with paced rhythm, moderate diastolic dysfunction, mild AR, all wall segments with normal motion. -Will check limited echo. -Will continue to monitor. . Qualifiers: Coronary Disease-Associated Artery/Lesion type: [place] artery [place] vs. transplanted heart: [place] heart Associated angina: with unspecified angina Qualified Code(s): I25.119 - Atherosclerotic heart disease of tel[place] coronary artery with unspecified angina pectoris (9) Paroxysmal a-fib Current Visit: No Status: Acute Per cardiology: -Known PAF. -SR per telemetry. -Average HR 62. -Has PPM for tachybrady syndrome. -On coreg and cardizem. -On coumadin (also has factor V) -INR today 3.6. -Will continue to monitor. Discussion w patient/family: The assessment and plan as outlined above was discussed with the patient who expressed understanding and agreement. All questions were answered. Thank you for involving us in the care of your patient. Please call with any questions. Discussed and reviewed with . History of Present Illness Consult date: 07/05/17 Requesting physician: Ted Walton Consult reason: elevated troponin, ECG changes Chief complaint: abdominal pain History of present illness: Ms. Fischer is a 71 year old female with a relevant past medical history of CAD s/p PCI, DMII, HTN, CVA x2, factor V, portal vein thrombosis, CKD, GERD, sleep apnea, diastolic CHF. Patient presented to [facility] with complaints of abdominal pain. Patient states for the past couple of week she has had intermittent severe abdominal pain. Patient reports poor oral intake. Patient also reports nausea, vomiting, and constipation. Patient states has had some mild chest "achiness." Patient states she notices achiness more when she is nauseated/ vomiting. Patient reports this "achiness" is similar to previous angina symptoms , however much less severe. Patient denies exertional chest pain/achiness. Patient denies increased shortness of breath. Patient reports increased fatigue with abdominal symptoms. Patient denies current chest achiness. Past Med Surg Social Fam HX - Past Medical History Attestation: Yes The following information was validated with the patient. Source: patient, old records reviewed Medical history: arthritis, atrial fibrillation, cancer, coronary artery disease , CVA, diabetes, GERD, hyperlipidemia, hypertension, myocardial infarction, osteoporosis, peripheral artery disease, renal disease, TIA, valvular heart disease Psychiatric history: depression - Past Surgical History Surgical History: breast surgery, pacemaker/AICD - Social History Smoking Status: Never smoker Smokeless Tobacco Status: No Alcohol use: none, rarely Drug use: none - Family History Father Adopted: No Family Member Ethnicity: Non- Living Status: Hx Family Cardiac Disorders: Yes Hx Family Respiratory Disorders: No Hx Family Cancer: No Hx Family GI Disorders: No Hx Family Endocrine Disorder: Yes Hx Family Neuromuscular Disorders: No Hx Family Neurologic Disorders: Yes Hx Family HEENT Disorders: No Hx Family Autoimmune Disorders: Yes Mother Family Member Ethnicity: Non- Living Status: Hx Family Cardiac Disorders: Yes Hx Family Respiratory Disorders: No Hx Family Cancer: Yes Hx Family GI Disorders: No Hx Family Endocrine Disorder: Yes Hx Family Neuromuscular Disorders: No Hx Family Neurologic Disorders: No Hx Family HEENT Disorders: No Hx Family Autoimmune Disorders: Yes (RA) Sister Adopted: No Living Status: Still Living Hx Family Cardiac Disorders: Yes Hx Family Respiratory Disorders: No Hx Family Cancer: No Hx Family GI Disorders: No Hx Family Endocrine Disorder: Yes Hx Family Neuromuscular Disorders: No Hx Family Neurologic Disorders: Yes Hx Family HEENT Disorders: No Hx Family Autoimmune Disorders: No Brother Adopted: No Living Status: Still Living Hx Family Cardiac Disorders: Yes Hx Family Respiratory Disorders: No Hx Family Cancer: No Hx Family GI Disorders: No Hx Family Endocrine Disorder: No Hx Family Neuromuscular Disorders: No Hx Family Neurologic Disorders: No Hx Family HEENT Disorders: No Hx Family Autoimmune Disorders: No Medications and Allergies Escitalopram [Lexapro] 20 mg PO QAM 05/16/15 [History] Rosuvastatin [Crestor] 40 mg PO QPM 05/16/15 [History] Ranolazine [Ranexa] 1,000 mg PO BID #60 tab.er.12h 08/01/15 [Rx] Aspirin 81 mg PO DAILY tab.chew 02/05/16 [Rx] Insulin Glargine,Hum.rec.anlog [Lantus Solostar] 40 unit SQ QPM 07/06/16 [ History] Insulin LISPRO [Humalog] 2 - 10 unit SQ TIDWM 07/06/16 [History] Nitroglycerin 0.4 mg SL Q5MIN PRN #0 tab.subl 07/10/16 [Rx] Oxygen 2 l NS AD 08/07/16 [History] Clopidogrel [Plavix] 75 mg PO DAILY #30 tablet 08/15/16 [Rx] Melatonin 10 mg PO HS 09/19/16 [History] Anastrozole [Arimidex] 1 mg PO DAILY 11/04/16 [History] Cholecalciferol (D-3) [Vitamin D] 1,000 unit PO DAILY 11/04/16 [History] Isosorbide MONOnitrate [Isosorbide Mononitrate ER] 120 mg PO DAILY 11/04/16 [ History] Diltiazem HCl [Diltiazem ER] 180 mg PO DAILY #30 cap.er.deg 02/09/17 [Rx] Carvedilol 6.25 mg PO BID 03/19/17 [History] Famotidine [Heartburn Prevention] 20 mg PO HS 03/19/17 [History] Furosemide [Lasix] 60 mg PO BID 03/19/17 [History] Pantoprazole Sodium [Protonix] 40 mg PO QAM 03/19/17 [History] traZODone [TraZODone] 50 mg PO HS PRN 03/19/17 [History] Warfarin [Coumadin] 2 mg PO 1800 #30 tablet 03/20/17 [Rx] Lactulose [Enulose] 10 gm PO Q72H PRN 07/06/17 [History] Lubiprostone [Amitiza] 24 mcg PO BID 07/06/17 [History] Potassium Chloride [K-Tab ER] 20 meq PO BID 07/06/17 [History] Spironolactone [Aldactone] 25 mg PO DAILY 07/06/17 [History] 3 Allergy/AdvReac Type Severity Reaction Status Date / Time phenylbutazone Allergy Rash Verified 03/19/17 17:55 [From Butazolidin] amitriptyline [From Elavil] AdvReac Headache Verified 03/19/17 17:55 codeine AdvReac Headache Verified 03/19/17 17:55 desipramine AdvReac Headache Verified 03/19/17 17:55 lisinopril AdvReac Cough Verified 03/19/17 17:55 meperidine [From Demerol] AdvReac Headache Verified 03/19/17 17:55 nalbuphine AdvReac Headache Verified 03/19/17 17:55 Nortriptyline AdvReac Headache Verified 03/19/17 17:55 tiagabine AdvReac Headache Verified 03/19/17 17:55 All Systems Review: A 10-system review of systems was performed and is negative for pertinent findings except as documented above in the HPI. - Cardiovascular Cardiovascular: as per HPI, chest pain at rest - Gastrointestinal Gastrointestinal: abdominal pain, nausea Physical Examination Vital Signs, Last 4 Hours Temp Pulse Resp BP Pulse Ox 07/06/17 07:37 97.6 F 81 16 115/64 99 General: Conversant, No Apparent Distress HEENT: Atraumatic, Normocephaly, Mucus Membranes Moist Neck: No JVD, Normal carotid pulses Cardiac: Reg Rate and Rhythm, Normal S1 and S2, No Murmur Lungs: Normal Breath Sounds, No Wheeze, Rales, Rhonchi Neuro: Alert and responsive, No focal deficits noted Abdomen: Soft, Non-Tender Skin: No rashes noted on visualized skin Musculoskeletal: No Chest Wall Tenderness Extremities: No Clubbing, No Cyanosis, No Edema, Normal Pulses Results 07/06/17 03:50 07/06/17 03:50 Lab Results Impressions Abdomen/Pelvis CT 07/05/17 19:56 IMPRESSION: 1. No acute abnormality in the abdomen or pelvis. 2. Unchanged 3.7 cm benign left adrenal myelolipoma. 3. 1.8 cm indeterminate right renal lesion mildly increased in size from 08/24/2016. Small indeterminate lesions in the left kidney. Recommend further evaluation with nonemergent renal ultrasound or contrast-enhanced MRI. Most likely these represent benign cysts. 4. Small sliding-type hiatal hernia. D/ / Charan Castaneda MD / Charan Castaneda MD Interpreting Provider: Charan Castaneda MD Active Medications Hydrocodone Bitart/Acetaminophen ([place] 5-325 Mg) 1 tab PO Q4HR PRN PRN Reason: Pain Stop: 01/04/18 23:14 Amlodipine Besylate (Norvasc) 10 mg PO DAILY SETH Stop: 01/05/18 09:01 Last Admin: 07/06/17 08:52 Dose: Not Given Anastrozole (Arimidex) 1 mg PO DAILY SETH Stop: 01/05/18 09:01 Last Admin: 07/06/17 08:50 Dose: 1 mg Aspirin (Aspirin) 81 mg PO DAILY SETH Stop: 01/05/18 09:01 Last Admin: 07/06/17 08:50 Dose: 81 mg Carvedilol (Coreg) 6.25 mg PO BIDWM SETH Stop: 01/04/18 22:16 Last Admin: 07/06/17 08:50 Dose: 6.25 mg Clopidogrel Bisulfate (Plavix) 75 mg PO DAILY SETH Stop: 01/05/18 09:01 Last Admin: 07/06/17 08:49 Dose: 75 mg Dextrose/Water (Dextrose 50% (Syg)) 25 ml IVP AD PRN PRN Reason: Hypoglycemia Stop: 01/04/18 22:12 Diltiazem HCl (Cardizem Cd) 180 mg PO DAILY SETH Stop: 01/05/18 09:01 Last Admin: 07/06/17 08:50 Dose: 180 mg Escitalopram Oxalate (Lexapro) 20 mg PO QAM SETH Stop: 01/05/18 09:01 Last Admin: 07/06/17 08:50 Dose: 20 mg Furosemide (Lasix) 60 mg PO BIDDIURETIC SETH Stop: 01/05/18 08:01 Last Admin: 07/06/17 08:50 Dose: 60 mg Glucagon (Glucagen) 1 mg IM ONCE PRN PRN Reason: Hypoglycemia Stop: 01/04/18 22:12 Glucose (Gluctose) 15 gm PO ONCE PRN PRN Reason: Hypoglycemia Stop: 01/04/18 22:12 Glucose (Gluctose) 30 gm PO ONCE PRN PRN Reason: Hypoglycemia Stop: 01/04/18 22:12 Dextrose (Dextrose 5%) 1,000 mls @ 100 mls/hr IVC .Q10H PRN PRN Reason: HYPOGLYCEMIA Stop: 01/04/18 22:12 Sodium Chloride (0.9 % Sodium Chloride) 1,000 mls @ 60 mls/hr IVC .[id number] [facility] Stop: 01/05/18 03:04 Last Admin: 07/06/17 05:46 Dose: 60 mls/hr Insulin Detemir (Levemir) 40 unit SQ HS [facility] Stop: 01/04/18 22:46 Last Admin: 07/05/17 23:34 Dose: 40 unit Insulin Human Lispro (Humalog) 0 units SQ HS [facility] PRN Reason: Protocol Stop: 01/05/18 21:01 Insulin Human Lispro (Humalog) 0 units SQ TIDAC [facility] PRN Reason: Protocol Stop: 01/05/18 07:31 Last Admin: 07/06/17 08:20 Dose: Not Given Isosorbide Mononitrate (Imdur) 120 mg PO DAILY [facility] Stop: 01/05/18 09:01 Last Admin: 07/06/17 08:49 Dose: 120 mg Lansoprazole (Prevacid) 30 mg PO DAILY@0730 [facility] PRN Reason: Protocol Stop: 01/06/18 07:31 Melatonin (Melatonin) 9 mg PO HS [facility] Stop: 01/05/18 21:01 Naloxone HCl (Narcan) 0.4 mg IVP Q2MIN PRN PRN Reason: Opioid Reversal Stop: 01/04/18 22:05 Nitroglycerin (Nitroglycerin) 0.4 mg SL Q5MIN PRN PRN Reason: Chest Pain Stop: 01/04/18 22:08 Ondansetron HCl (Zofran) 4 mg IVP Q8HR PRN; Protocol PRN Reason: Nausea And Vomiting Stop: 01/04/18 23:13 Last Admin: 07/05/17 23:44 Dose: 4 mg Potassium Chloride (Potassium Chloride) 10 meq PO BID [facility] Stop: 01/04/18 22:16 Last Admin: 07/06/17 08:50 Dose: 10 meq Ranolazine (Ranexa) 1,000 mg PO BID [facility] Stop: 01/04/18 22:16 Last Admin: 07/06/17 08:49 Dose: 1,000 mg Rosuvastatin Calcium (Crestor) 40 mg PO QPM [facility] Stop: 01/04/18 22:16 Last Admin: 07/05/17 23:09 Dose: 40 mg Trazodone HCl (Trazodone) 50 mg PO HS PRN PRN Reason: Sleep Stop: 01/04/18 22:08 Warfarin Sodium (Coumadin Perpt) 1 each PO DAILY@1800 PRN PRN Reason: SEE COMMENTS Stop: 01/05/18 18:01 Laboratory Tests 06/23/17 07/01/17 07/05/17 08:43 17:37 20:25 Hgb INR Creatinine 1.88 H 1.94 H 1.79 H Troponin I 07/05/17 07/06/17 07/06/17 20:25 03:50 03:50 Hgb 12.9 INR Creatinine Troponin I 0.05 H* 0.06 H* 07/06/17 07/06/17 07/06/17 03:50 03:50 09:48 Hgb INR 3.6 Creatinine 1.51 H Troponin I 0.04 H* - Imaging and Cardiology Chest Xray: report reviewed Echo: report reviewed Cardiac cath: report reviewed - EKG Interpretation EKG results cardiology: personally reviewed (ECG with SR, HR 66, left bundle branch block noted.), other (Telemetry reviewed with average HR previous 12 hours noted to be 62, SR with intermittent pacing noted. PACs and PVCs noted.) Consult Discharge Plan - Plan Referrals: Adalberto Quijano MD [Primary Care Provider] - 07/13/17 9:45 am <Gideon Hernandes - Last Filed: 07/06/17 11:57> Date of Encounter: 07/06/17 - Attending Attestation I examined this patient and my medical decision-making was reviewed with the Nurse Practioner. I agree with the documented findings, disposition and treatment plan as described except to the extent set forth below. 71 YOF with h/o DM, CAD s/p LHC 12/29 found to have patent stents in LAD, and RCA. Presents with abdominal pain but found to have non ischemic pattern troponin elevation peak at .05. Denies chest pain, SOB, Orthopnea or PND. Currently on AC for afib. Likely non cardiac elevation of troponins despite recent changes on EKG especially in setting of recent LHC. Will obtain limited echo otherwise no further work up reccomended. Assessment and Plan Discussion w patient/family: The assessment and plan as outlined above was discussed with the patient and/or family members who expressed understanding and agreement. All questions were answered. Thank you for involving us in the care of your patient. Please call with any questions. History of Present Illness History of present illness: Ms. Fischer is a 71 year old female All Systems Review: A 10-system review of systems was performed and is negative for pertinent findings except as documented above in the HPI. Physical Examination Vital Signs, Last 4 Hours Temp Pulse Resp BP Pulse Ox 07/06/17 10:48 97.8 F 67 16 114/55 96 07/06/17 07:37 97.6 F 81 16 115/64 99 Results 07/06/17 03:50 07/06/17 03:50 Lab Results 07/06/17 07/06/17 07/06/17 03:50 03:50 03:50 WBC 9.4 Hgb 12.9 Hct 37.3 Plt Count 158 INR Sodium 137 Potassium 3.4 L Chloride 104 Carbon Dioxide 23 BUN 42 H Creatinine 1.51 H Glucose 111 H Calcium 9.5 Troponin I 0.06 H* 07/06/17 07/06/17 03:50 09:48 WBC Hgb Hct Plt Count INR 3.6 Sodium Potassium Chloride Carbon Dioxide BUN Creatinine Glucose Calcium Troponin I 0.04 H*
--- NOTE | 2017-07-06 12:26 | Discharge Summary ---
Date of Encounter: 07/09/17 Time of Encounter: 12:24 - Discharge Diagnosis (1) Dyspepsia and disorder of function of stomach Priority: Primary Status: Chronic (2) LBBB (left bundle branch block) Priority: Primary Status: Acute Comments: New LBBB, no evidence of ACS (3) COPD (chronic obstructive pulmonary disease) Priority: Secondary Status: Chronic Qualifiers: COPD type: chronic bronchitis Chronic bronchitis type: simple Qualified Code(s): J41.0 - Simple chronic bronchitis (4) Diabetes mellitus Priority: Secondary Status: Chronic Qualifiers: Diabetes mellitus type: type 2 Diabetes mellitus complication status: with unspecified complications Diabetes mellitus ferry terminal supervisor insulin use: with ferry terminal supervisor use Qualified Code(s): E11.8 - Type 2 diabetes mellitus with unspecified complications; Z79.4 - termite helper (current) use of insulin (5) Congestive heart failure Priority: Secondary Status: Chronic Comments: no exacerbation Qualifiers: Congestive heart failure type: unspecified congestive heart failure type Congestive heart failure chronicity: unspecified congestive heart failure chronicity Qualified Code(s): I50.9 - Heart failure, unspecified (6) CKD (chronic kidney disease) stage 3, GFR 30-59 ml/min Priority: Secondary Status: Chronic (7) Pacemaker Priority: Secondary Status: Acute (8) INEZ treated with BiPAP Priority: Secondary Status: Chronic (9) Factor V Leiden Priority: Secondary Status: Acute (10) Diastolic dysfunction Priority: Secondary Status: Chronic (11) Anticoagulated on Coumadin Priority: Secondary Status: Chronic (12) Supratherapeutic INR Priority: Secondary Status: Acute (13) Atrial fibrillation Priority: Secondary Status: Chronic Qualifiers: Atrial fibrillation type: paroxysmal Qualified Code(s): I48.0 - Paroxysmal atrial fibrillation - Discharge Medications Prescriptions: Pantoprazole Sodium [Protonix] 40 mg PO BID #60 tablet.dr Home Medications: Escitalopram [Lexapro] 20 mg PO QAM 05/16/15 [History] Rosuvastatin [Crestor] 40 mg PO QPM 05/16/15 [History] Ranolazine [Ranexa] 1,000 mg PO BID #60 tab.er.12h 08/01/15 [Rx] Aspirin 81 mg PO DAILY tab.chew 02/05/16 [Rx] Insulin Glargine,Hum.rec.anlog [Lantus Solostar] 40 unit SQ QPM 07/06/16 [ History] Insulin LISPRO [Humalog] 2 - 10 unit SQ TIDWM 07/06/16 [History] Nitroglycerin 0.4 mg SL Q5MIN PRN #0 tab.subl 07/10/16 [Rx] Oxygen 2 l NS AD 08/07/16 [History] Clopidogrel [Plavix] 75 mg PO DAILY #30 tablet 08/15/16 [Rx] Melatonin 10 mg PO HS 09/19/16 [History] Anastrozole [Arimidex] 1 mg PO DAILY 11/04/16 [History] Cholecalciferol (D-3) [Vitamin D] 1,000 unit PO DAILY 11/04/16 [History] Isosorbide MONOnitrate [Isosorbide Mononitrate ER] 120 mg PO DAILY 11/04/16 [ History] Diltiazem HCl [Diltiazem ER] 180 mg PO DAILY #30 cap.er.deg 02/09/17 [Rx] Carvedilol 6.25 mg PO BID 03/19/17 [History] Famotidine [Heartburn Prevention] 20 mg PO HS 03/19/17 [History] Furosemide [Lasix] 60 mg PO BID 03/19/17 [History] traZODone [TraZODone] 50 mg PO HS PRN 03/19/17 [History] Warfarin [Coumadin] 2 mg PO 1800 #30 tablet 03/20/17 [Rx] Lactulose [Enulose] 10 gm PO Q72H PRN 07/06/17 [History] Lubiprostone [Amitiza] 24 mcg PO BID 07/06/17 [History] Pantoprazole Sodium [Protonix] 40 mg PO BID #60 tablet.dr 07/06/17 [Rx] Potassium Chloride [K-Tab ER] 20 meq PO BID 07/06/17 [History] Spironolactone [Aldactone] 25 mg PO DAILY 07/06/17 [History] Allergies/Adverse Reactions: 3 Allergy/AdvReac Type Severity Reaction Status Date / Time phenylbutazone Allergy Rash Verified 03/19/17 17:55 [From Butazolidin] amitriptyline [From Elavil] AdvReac Headache Verified 03/19/17 17:55 codeine AdvReac Headache Verified 03/19/17 17:55 desipramine AdvReac Headache Verified 03/19/17 17:55 lisinopril AdvReac Cough Verified 03/19/17 17:55 meperidine [From Demerol] AdvReac Headache Verified 03/19/17 17:55 nalbuphine AdvReac Headache Verified 03/19/17 17:55 Nortriptyline AdvReac Headache Verified 03/19/17 17:55 tiagabine AdvReac Headache Verified 03/19/17 17:55 Procedures/tests Complete & Pending: Procedures Performed prior 72 hours Category Date Time Status EV limited echocardiogram Routine Y 07/06/17 10:42 Ordered Date of admission: 07/05/17 21:35 Primary care physician: Adalberto Quijano MD - Patient Status Disposition: Home, Self-Care Condition: Fair Overall status at discharge: patient is back to baseline - Discharge Instructions Instructions: Gastritis (DC) Follow Up With: Adalberto Quijano MD [Primary Care Provider] - 07/13/17 9:45 am Additional Instructions: Follow-up with primary care physician within the next 7 days. Continue Protonix 40 mg twice a day. Hold Coumadin for 2 days - Diet and Activity Activity: increase activity as tolerated Diet: diabetic diet Hospital course: Ms. Fischer is a 71 year old female with a past medical history of diabetes type 2 insulin-dependent, hypertension, CVA, pneumonia, paroxysmal atrial fibrillation on Coumadin, portal vein thrombosis, factor V Ley[place] disorder, diastolic CHF, cervical spinal stenosis, CAD stents, chronic kidney disease stage III, sleep apnea, GERD, esophageal ulcer in the past, hyperlipidemia, lumbar spondylosis and stenosis with radiculitis, neuropathy, IBS, ADD, COPD not oxygen dependent, breast cancer status post right breast lumpectomy, cholecystectomy cardiac catheterizations with stents, pacemaker for tachybradycardia syndrome, [facility] 12/2016 with patent LAD stenting, proximal circumflex 50% stenosis, OM1 30%, patent proximal and mid RCA stents, mid RCA 40 %, distal RCA 60%. -Last coronary intervention 09/2016 at [facility]. Presented to [facility] with abdominal pain, constipation, nausea and vomiting that began approximately 3 weeks ago, and nausea began 1 week ago. She reported vomiting . Last Bm was yesterday. She is concerned because she has had poor nutritional intake for the last [address] abdomen and pelvis was normal. She is additionally reporting intermittent CP, troponin elevated at 0.05 . Has been complaining of burning sensation in the epigastric area that has improved this morning. INR today is 3.6. Troponins 0.05, 0.06, 0.04. -Troponins flat and adynamic in the setting of acute gastritis, CKD. -Patient has chronically elevated troponins. -ECG with new left bundle branch block. Cardiology was consulted and recommended to do an echocardiogram Symptoms have improved at the moment, was given the option to stay an additional day but prefers to follow-up as an outpatient and be discharged. Echocardiac exam showed an ejection fraction of 55% and concentric LVH, stable to be discharged - Time Spent with Patient Total time spent providing and/or coordinating discharge services: Greater than 30 minutes (40 min) - Constitutional Vitals: Temp Pulse Resp BP Pulse Ox 97.8 F 67 16 114/55 96 07/06/17 10:48 07/06/17 10:48 07/06/17 10:48 07/06/17 10:48 07/06/17 10:48 General appearance: Present: cooperative, A&O X 3, no acute distress, answers questions appropriately - Head Head exam: Present: atraumatic, normocephalic - Eye Eye exam: Present: PERRL, conjuntiva pink, sclera anicteric Pupils: Present: PERRL - Neck Neck exam general surgery: Present: supple, trachea midline. Absent: lymphadenopathy - Respiratory Respiratory exam: Present: CTAB. Absent: accessory muscle use, rales, rhonchi, wheezes - Cardiovascular Cardiovascular exam: Present: RRR, +S1, +S2. Absent: diastolic murmur, gallop, rubs, systolic murmur - GI/Abdominal GI/Abdominal exam: Present: normal bowel sounds, soft, no peritoneal signs. Absent: distended, tenderness - Extremities Exam Extremities exam: Present: warm, radial pulses palpable and symmetrical. Absent : calf tenderness, cyanotic, pedal edema - Neurological Exam Neurological exam: Present: CN II-XII intact, oriented X3, no focal deficits. Absent: pronater drift, facial droop, speech deficit - Skin Skin exam: Present: dry, intact
[2017-07-06] MEDS: *HR* HYDROcodone/Acet 5/325 mg TABLET PO PRN ×2 (13:39→21:26)
--- NOTE | 2017-07-06 14:10 | Electrocardiograph Report ---
[place] [id number] Test Date: 2017-07-05 Pat Name: Miriam Fischer Department: 103 Room: 2A43 Gender: F Reference Librarian: BONIFACIO : 1945 Requested By: Ted Walton Order Number: [id number] Reading MD: Sayda Hewitt Measurements Intervals [place] Rate: 66 P: 76 KS: 250 QRS: -54 QRSD: 153 T: 101 QT: 467 QTc: 481 Interpretive Statements SINUS RHYTHM WITH FIRST DEGREE AV BLOCK LEFT BUNDLE BRANCH BLOCK Electronically Signed On 07-06-2017 14:09:23 EDT by Sayda Hewitt
--- NOTE | 2017-07-06 16:51 | Event Note ---
Date of Encounter: 07/06/17 Time of Encounter: 16:50 - Cardiology Event Note Pacemaker checked with 4 atrial high rates noted. All measurements and battery life within normal limits. If limited TTE results with no significant change in LVEF ok for discharge from cardiology standpoint. Follow up has been set in cardiology clinic.
[2017-07-06] MEDS ORDERED: Warfarin perPT PO PRN (18:00)
[2017-07-06] MEDS ORDERED: Ondansetron ODT 4 MG TAB.RAPDIS SL PRN (18:38)
[2017-07-06] MEDS ORDERED: Insulin LISPRO 300 UNITS/3 ML VIAL SQ SCH (21:00)
[2017-07-06] MEDS ORDERED: Melatonin 3 MG TABLET PO SCH (21:00)
[2017-07-06] MEDS: Sucralfate 1 GM TABLET PO SCH (21:26)
[2017-07-06] MEDS: Insulin DETEMIR 100 UNIT/ML X5UNITS SQ SCH (21:28)
[2017-07-07 05:55] LABS: INR 3.4; Prothrombin Time 38.1 Seconds (9.4-12.1)
[2017-07-07 07:12] VITALS: BP 105/56
[2017-07-07] MEDS: Ranolazine 500 MG TAB.ER.12H PO SCH (08:45)
[2017-07-07] MEDS: Sucralfate 1 GM TABLET PO SCH (08:45)
[2017-07-07] MEDS: Diltiazem CD (24hr) 180 MG CAPSULE PO SCH (08:45)
[2017-07-07] MEDS: Anastrozole 1 MG TABLET PO SCH (08:46)
[2017-07-07] MEDS: Aspirin 81 MG TAB.CHEW PO SCH (08:46)
[2017-07-07] MEDS: Isosorbide MONOnitrate (24 HR) 60 MG TAB.ER.24H PO SCH (08:46)
[2017-07-07] MEDS: amLODIPine 5 MG TABLET PO SCH (08:46)
[2017-07-07] MEDS: Furosemide 20 MG TABLET PO SCH (08:46)
--- NOTE | 2017-07-07 08:46 | Event Note ---
Date of Encounter: 07/07/17 Time of Encounter: 08:45 - Cardiology Event Note Limited echo resulted with LVEF 55%, all visualized hill with normal motion. Cardiology will sign off and will follow in outpatient setting. Follow up set.
[2017-07-07] MEDS: Insulin LISPRO 300 UNITS/3 ML VIAL SQ SCH (08:50)
--- NOTE | 2017-07-07 10:11 | Event Note ---
Date of Encounter: 07/07/17 Time of Encounter: 10:07 She was seen and examined this morning. She has no acute events denies chest pain or shortness of breath. Abdominal pain is baseline. Echocardiogram was reviewed and fairly unchanged since last time. She will be discharged this morning.
[2017-07-07] MEDS ORDERED: *HR* Warfarin 1 MG TABLET PO ONE (18:00)
== END 2017-07-07 11:45 | disposition home or self-care (01) ==
LOC: EMEROO 19:37 → 2ANU 19:37 → SUATTDRO 21:35 → 2ANU 22:18
PROVIDERS: ADMIT Nurse Practitioner; ATTEND Student in an Organized Health Care Education/Training Program

== ENCOUNTER 2018-05-14 14:02 | Observation (INO) ==
[2018-05-14] MEDS ORDERED: Furosemide 40 MG/4 ML VIAL IVP ONE ×2 (14:48→17:03)
[2018-05-14] MEDS ORDERED: Ipratropium/Albuterol Neb 3 ML IH ONE (15:00)
[2018-05-14 15:13] LABS: Basophils % 0.3 %; Eosinophils % 0.3 %; Hematocrit 40.3 % (35.3-44.9); Hemoglobin 13.4 g/dL (11.5-15.4); Immature Granulocytes % 0.4 % (0-4); Lymphocytes # 0.8 K/mcL (0.6-4.6); Lymphocytes % 6.4 %; Mean Corpuscular HGB Conc 33.3 g/dL (31.6-35.5); Mean Corpuscular Hemoglobin 27.5 pg (28.0-33.3); Mean Corpuscular Volume 82.8 fL (83.0-100.0); Mean Platelet Volume 9.8 fL (9.4-12.4); Monocytes # 0.8 K/mcL (0.0-1.3); Monocytes % 7.1 %; Neutrophils # 10.1 K/mcL (1.6-8.9); Platelet Count 178 K/mcL (140-400); Red Blood Count 4.87 M/mcL (3.82-4.97); Red Cell Distribution Width 13.6 % (11.5-14.5); Segmented Neutrophils % 85.5 %
--- NOTE | 2018-05-14 15:17 | Emergency Department Note ---
Addendum entered and electronically signed by Mahin Santiago DO 05/14/18 17:08: We did interrogate patient's pacemaker as it seemed the patient was overriding it. [employer] did call back and said that she was in a 2:1 atrial arrhythmia conduction. He said the functions are all okay and otherwise the pacemaker is working fine. He said this can be followed up with cardiology in the outpatient setting. I did speak with the on-call inspector and clipper Dr. Bobby who did agree with this plan as once a there is no further needed. Original Note: Disposition Clinical Impression: Pacemaker, LBBB (left bundle branch block) Combined systolic and diastolic congestive heart failure Qualifiers: Heart failure chronicity: acute on chronic Qualified Code(s): I50.43 - Acute on chronic combined systolic (congestive) and diastolic (congestive) heart failure CHF exacerbation Qualifiers: Qualified Code(s): I50.33 - Acute on chronic diastolic (congestive) heart failure Disposition: Admitted As Inpatient Condition: Good Referrals: Adalberto Quijano MD [Primary Care Provider] - Forms: ED Satisfaction Letter Time of Disposition: 17:04 SOB HPI - General Chief Complaint: ED Shortness of Breath/Dyspnea Stated Complaint: JESÚS Time Seen by Provider: 05/14/18 14:09 Source: patient, EMS Mode of arrival: EMS Limitations: no limitations Nursing Notes Reviewed: Yes Vital Signs Reviewed: Yes - History of Present Illness The patient is a 72 year old female with history of CHF s/p 2 coronary stents and pacemaker, CKD, and atrial fibrillation who presented by EMS with shortness of breath. She complained of nausea, shortness of breath, orthopnea, wheezing, and a dry cough since last night. She had 9 days of constipation and took 2 doses of milk of magnesia yesterday which produced 2 bowel movements today. She then began feeling "sick" with nausea and shortness of breath. Her checked her O2 with a finger monitor they have at home and she was 87% on room air. He then placed her on 2L nasal cannula but she did not improve so he called EMS. She does not have a history of COPD or asthma but requires 2L O2 at home approximately 3-4 days per week secondary to her congestive heart failure. Her reported the patient eating high salt diet the past week which usually causes her to have a CHF exacerbation. 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 Her INR was checked yesterday and was 3.0. She denied dysuria, abdominal pain, chest pain, edema, vision changes, recent illness, fevers. I have re-performed and reviewed the history documented by the medical student, and I confirm its accuracy except as noted below I spoke with the patient as well with the medical student increase her history and physical. Patient stated that she possibly ate too much salt over the last few days also causing this exacerbation. Patient did try BiPAP at home he said it did help a little bit but she could tell it was getting worse also caused him to come in. Patient's I have any chest pain at this time is that she is a little short of breath. Patient has never smoked previously she does not have history of COPD but does use albuterol inhalers occasionally she has difficult time breathing which helps. Patient does not have any pedal edema which is normal for her she says it seems always buildup in her lungs first. They says she feels like this is a normal CHF exacerbation that she has. She has had no fevers or chills. - Related Data Home Medications Medication Instructions Recorded Confirmed Escitalopram [Lexapro] 20 mg PO QAM 05/16/15 05/14/18 Rosuvastatin [Crestor] 40 mg PO QPM 05/16/15 05/14/18 Insulin Glargine,Hum.rec.anlog 30 unit SQ HS 07/06/16 05/14/18 [Lantus Solostar] Insulin LISPRO [Humalog] 2 - 10 unit SQ TIDWM 07/06/16 05/14/18 Oxygen 2 l NS AD 08/07/16 05/14/18 traZODone [TraZODone] 50 mg PO HS PRN 03/19/17 05/14/18 Potassium Chloride [K-Tab ER] 20 meq PO BID 07/06/17 05/14/18 Spironolactone [Aldactone] 25 mg PO DAILY 07/06/17 05/14/18 Furosemide [Lasix] 60 mg PO BID 09/13/17 05/14/18 Amiodarone HCl [Pacerone] 200 mg PO DAILY 01/03/18 05/14/18 Ranolazine [Ranexa] 1,000 mg PO BID 01/03/18 05/14/18 Anastrozole [Arimidex] 1 mg PO DAILY 05/14/18 05/14/18 Diltiazem HCl [Diltiazem 24Hr Cd] 240 mg PO DAILY 05/14/18 05/14/18 Isosorbide MONOnitrate (24 HR) 60 mg PO BID 05/14/18 05/14/18 [Imdur] Pantoprazole Sodium [Protonix] 40 mg PO DAILY 05/14/18 05/14/18 Warfarin Sodium [Warfarin Sodium] 1 mg PO SUTUTHFR 05/14/18 05/14/18 Warfarin Sodium [Warfarin Sodium] 2 mg PO MOWESA 05/14/18 05/14/18 metOLazone [Zaroxolyn] 2.5 mg PO 2XW 05/14/18 05/14/18 Previous Rx's Medication Instructions Recorded Nitroglycerin 0.4 mg SL Q5MIN PRN #0 tab.subl 07/10/16 Clopidogrel [Plavix] 75 mg PO DAILY #30 tablet 08/15/16 Carvedilol [Coreg] 3.125 mg PO BIDWM #60 tablet 08/18/17 Allergies Allergy/AdvReac Type Severity Reaction Status Date / Time phenylbutazone Allergy Rash Verified 05/14/18 14:15 [From Butazolidin] amitriptyline [From Elavil] AdvReac Headache Verified 05/14/18 14:15 codeine AdvReac Headache Verified 05/14/18 14:15 desipramine AdvReac Headache Verified 05/14/18 14:15 lisinopril AdvReac Cough Verified 05/14/18 14:15 meperidine [From Demerol] AdvReac Headache Verified 05/14/18 14:15 nalbuphine AdvReac Headache Verified 05/14/18 14:15 Nortriptyline AdvReac Headache Verified 05/14/18 14:15 tiagabine AdvReac Headache Verified 05/14/18 14:15 All systems ED: reviewed and negative except as stated. Review of Systems: As Per HPI Constitutional: Denies: fever, chills, weight change Eyes: Denies: vision change ENT ED: Denies: ear pain, throat pain, dental pain, hearing loss, epistaxis, congestion, dysphagia Cardiovascular: Reports: orthopnea. Denies: chest pain, edema Respiratory: Reports: cough, dyspnea, wheezes. Denies: hemoptysis, sputum production Gastrointestinal: Reports: nausea, vomiting, constipation. Denies: abdominal pain Genitourinary: Denies: dysuria, frequency, hematuria Musculoskeletal: Denies: back pain, neck pain, arthralgia, myalgia Integumentary: Denies: rash, abrasion, lesions Neurological: Denies: headache, weakness, numbness, paresthesias, confusion, abnormal gait, vertigo Psychiatric: Denies: anxiety, depression, suicidal thoughts, homicidal thoughts , auditory hallucinations, visual hallucinations Endocrine: Denies: fatigue Hematological/Lymphatic: Denies: easy bleeding, easy bruising Allergic/Immunologic: Denies: facial swelling, urticaria Past Medical History - Past Medical History Attestation: Yes The following information was validated with the patient. 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 history - Social History Smoking Status: Never smoker Smokeless Tobacco Status: No Alcohol use: Reports: occasionally Drug use: Reports: none Physical Exam - General Limitations: no limitations General appearance: alert, in no apparent distress - Head Head exam: atraumatic, normocephalic - Eye Eye exam: Present: normal appearance - ENT ENT exam: normal exam, normal oropharynx, mucous membranes moist - Chest Chest inspection: Present: symmetric chest wall rise - Respiratory Respiratory exam: Present: wheezes, other (Rales in bilateral lung bases; decreased aeration throughout) - Expanded Respiratory Exam Location: rales: Left, Right, Lower - Cardiovascular Cardiovascular exam: Present: tachycardia, irregular rhythm - Abdominal Exam Abdominal exam: Present: soft, Non-Tender, normal bowel sounds. Absent: distention, guarding, rigidity - Extremities Exam Extremities exam: Present: normal inspection, full ROM. Absent: tenderness, pedal edema - Expanded Lower Extremity Exam Neurovascular/Tendon exam: Present: normal capillary refill. Absent: pulse deficit, motor deficit, sensory deficit, tendon deficit - Neurological Exam Neurological exam: Present: alert, oriented X3 - Skin Skin exam: Present: warm, dry, intact, normal color Course Course Narrative: 72-year-old female presents here with possible CHF exacerbation. We will get EKG, BMP, BNP, CBC, troponin as well as a magnesium. We will get EKG and chest x-ray. We will place patient on BiPAP as she says that this what she feels like she needs at this time we will also give patient 40 mg IV Lasix as well as aspirin. - Consultations Consultation #1: Spoke with the hospitalist Dr. Sanz who agreed to admit the patient to their service. Patient admitted in stable condition Time: 16:50 Vital Signs Temperature 99.1 F 05/14/18 14:10 Pulse Rate 104 05/14/18 14:10 Respiratory Rate 18 05/14/18 14:10 Blood Pressure 122/62 05/14/18 14:10 O2 Sat by Pulse Oximetry 97 05/14/18 14:10 Temperature 99.1 F 05/14/18 14:10 Pulse Rate 109 05/14/18 16:29 Respiratory Rate 22 05/14/18 16:29 Blood Pressure 123/73 05/14/18 16:29 O2 Sat by Pulse Oximetry 97 05/14/18 16:29 Oxygen Delivery Oxygen Delivery Bipap Shortness of Breath/Dyspnea - MDM Narrative Medical decision making narrative: 72-year-old female presented to the emergency department a CHF exacerbation. Patient was mildly dyspneic on examination she had rales throughout. Started patient on BiPAP did give 2 DuoNeb treatments as she got one albuterol via EMS prior to arrival. Patient was doing much better while she is on BiPAP and is tolerating it well. Also gave patient 40 mg IV Lasix was did seem to help. Patient's pressure has been stable her entire visit here she has been 120/60. We did give patient aspirin she did have an elevated troponin. Patient did have elevated creatinine but was right around her normal and actually better. Patient of elevated troponin but it it is always elevated as this is probably chronic ischemia. EKG did show a left bundle-branch block pattern is normal for her. Patient's car Boso criteria patient was not having a STEMI and she also was not symptomatically with any chest pain. I spoke with the hospitalist Dr. Sanz who agreed to admit the patient to their service for CHF exacerbation. Patient did agree with this plan. Patient is admitted in stable condition Chest X-Ray 05/14/18 14:18 IMPRESSION: Findings concerning for pulmonary edema with small effusions. D/ / Gee Pantoja MD / Gee Pantoja MD Interpreting Provider: Gee Pantoja MD - Medical Records Medical records reviewed: Yes I reviewed the patient's medical records. - Lab Data Lab results reviewed: Yes I reviewed the patient's lab results. Result diagrams: 05/14/18 15:01 05/14/18 15:01 - Radiology Data Radiology results reviewed: Yes I reviewed the patient's radiology results. - EKG Data EKG attestation: Yes I reviewed and interpreted this EKG. EKG results narrative: EKG done at 1450 review by myself and the attending shows atrial fibrillation at a rate of 98, QRS 158, QTC 519 with a leftward axis. There is no acute ST changes no acute T-wave changes. There is a left bundle-branch block which is old this is discordant of 3 small boxes and elevation does not meet sclerosis criteria. This does show LVH but no signs of heart strain. No WPW/Brugada/ HOCM. This EKG other rise is unchanged when compared with old one done 12/08/17
[2018-05-14 15:26] LABS: INR 2.2; Prothrombin Time 25.2 Seconds (9.4-12.1)
[2018-05-14 15:33] LABS: Calcium 9.3 mg/dL (8.6-10.3); Magnesium 2.5 mg/dL (1.6-2.6)
[2018-05-14 15:42] LABS: Troponin I 0.05 ng/mL (< 0.04)
[2018-05-14] MEDS ORDERED: Aspirin 81 MG TAB.CHEW PO ONE (15:49)
[2018-05-14] MEDS ORDERED: Naloxone 0.4 MG/ML INJ IVP PRN (16:32)
[2018-05-14] MEDS ORDERED: Ipratropium/Albuterol Neb 3 ML IH PRN (16:34)
--- NOTE | 2018-05-14 17:03 | Internal Med History&Physical ---
Date of Encounter: 05/14/18 Time of Encounter: 16:45 Internal Medicine - H&P: HPI Chief complaint: SOB Admitted From: Home History of present illness: Ms. Fischer is a 72 year old female with past medical history of heart failure with preserved EF, atrial fibrillation on Coumadin, sick sinus syndrome status post pacemaker insertion, diabetes, CAD, CKD stage III, presented to the ED with acute onset of soreness of breath. States that she started having dyspnea at around 10:00 this morning associated with palpitation. Her family member states that she had a heart rate of 112 in the morning which is unusual for her. He also commented that she was taking a lot of salt recently. Denies chest pain, cough or sputum production, orthopnea, PND, or leg swelling. No fever/chills, nausea/vomiting, diaphoresis or lightheadedness. Denies any sick contact. No GI/ symptoms, joint pain, or rash. She usually takes Lasix 60 mg twice a day and metolazone 2.5 mg PRN and states that she is compliant to her meds. In the ED, she was afebrile, HR104 with stable BP, and saturating 97 % on 2 L of O2. Initial investigation showed white blood cell count of 11.8, INR 2.2, creatinine 1.21 (baseline), troponin 0.05 (Baseline), and BNP of 1013 ( highest value for the last 2 years). EKG did not show any new changes and X- ray findings were compatible with pulmonary edema. She was given IV Lasix 40 mg , placed on BiPaP for tachypnea, and admitted for further management. Past Med Surg Social Fam HX - Past Medical History Attestation: Yes The following information was validated with the patient. Medical history: arthritis, cancer, CHF, coronary artery disease, CVA, diabetes , GERD, hypertension Additional medical history: PACEMAKER. FACTOR V LEIDEN. LEFT-SIDED WEAKINESS Psychiatric history: depression - Past Surgical History Surgical History: angioplasty/stent, breast surgery, cancer surgery, carotid endarterectomy, cholecystectomy, orthopedic, other, pacemaker Additional surgical history: portal vein thrombosis,tummy tuck. back surgery. lap band sx - Social History Smoking Status: Never smoker Smokeless Tobacco Status: No Alcohol use: occasionally Drug use: none - Family History Father Adopted: No Family Member Ethnicity: Non- Living Status: Hx Family Cardiac Disorders: Yes Hx Family Respiratory Disorders: No Hx Family Cancer: No Hx Family GI Disorders: No Hx Family Endocrine Disorder: Yes Hx Family Neuromuscular Disorders: No Hx Family Neurologic Disorders: Yes Hx Family HEENT Disorders: No Hx Family Autoimmune Disorders: Yes Mother Family Member Ethnicity: Non- Living Status: Hx Family Cardiac Disorders: Yes Hx Family Respiratory Disorders: No Hx Family Cancer: Yes Hx Family GI Disorders: No Hx Family Endocrine Disorder: Yes Hx Family Neuromuscular Disorders: No Hx Family Neurologic Disorders: No Hx Family HEENT Disorders: No Hx Family Autoimmune Disorders: Yes (RA) Sister Adopted: No Living Status: Still Living Hx Family Cardiac Disorders: Yes Hx Family Respiratory Disorders: No Hx Family Cancer: No Hx Family GI Disorders: No Hx Family Endocrine Disorder: Yes Hx Family Neuromuscular Disorders: No Hx Family Neurologic Disorders: Yes Hx Family HEENT Disorders: No Hx Family Autoimmune Disorders: No Brother Adopted: No Living Status: Still Living Hx Family Cardiac Disorders: Yes Hx Family Respiratory Disorders: No Hx Family Cancer: No Hx Family GI Disorders: No Hx Family Endocrine Disorder: No Hx Family Neuromuscular Disorders: No Hx Family Neurologic Disorders: No Hx Family HEENT Disorders: No Hx Family Autoimmune Disorders: No Internal Medicine - H&P: Meds Escitalopram [Lexapro] 20 mg PO QAM 05/16/15 [History] Rosuvastatin [Crestor] 40 mg PO QPM 05/16/15 [History] Insulin Glargine,Hum.rec.anlog [Lantus Solostar] 30 unit SQ HS 07/06/16 [History ] Insulin LISPRO [Humalog] 2 - 10 unit SQ TIDWM 07/06/16 [History] Nitroglycerin 0.4 mg SL Q5MIN PRN #0 tab.subl 07/10/16 [Rx] Oxygen 2 l NS AD 08/07/16 [History] Clopidogrel [Plavix] 75 mg PO DAILY #30 tablet 08/15/16 [Rx] traZODone [TraZODone] 50 mg PO HS PRN 03/19/17 [History] Potassium Chloride [K-Tab ER] 20 meq PO BID 07/06/17 [History] Spironolactone [Aldactone] 25 mg PO DAILY 07/06/17 [History] Carvedilol [Coreg] 3.125 mg PO BIDWM #60 tablet 08/18/17 [Rx] Furosemide [Lasix] 60 mg PO BID 09/13/17 [History] Amiodarone HCl [Pacerone] 200 mg PO DAILY 01/03/18 [History] Ranolazine [Ranexa] 1,000 mg PO BID 01/03/18 [History] Anastrozole [Arimidex] 1 mg PO DAILY 05/14/18 [History] Diltiazem HCl [Diltiazem 24Hr Cd] 240 mg PO DAILY 05/14/18 [History] Isosorbide MONOnitrate (24 HR) [Imdur] 60 mg PO BID 05/14/18 [History] Pantoprazole Sodium [Protonix] 40 mg PO DAILY 05/14/18 [History] Warfarin Sodium [Warfarin Sodium] 1 mg PO SUTUTHFR 05/14/18 [History] Warfarin Sodium [Warfarin Sodium] 2 mg PO MOWESA 05/14/18 [History] metOLazone [Zaroxolyn] 2.5 mg PO 2XW 05/14/18 [History] 3 Allergy/AdvReac Type Severity Reaction Status Date / Time phenylbutazone Allergy Rash Verified 05/14/18 14:15 [From Butazolidin] amitriptyline [From Elavil] AdvReac Headache Verified 05/14/18 14:15 codeine AdvReac Headache Verified 05/14/18 14:15 desipramine AdvReac Headache Verified 05/14/18 14:15 lisinopril AdvReac Cough Verified 05/14/18 14:15 meperidine [From Demerol] AdvReac Headache Verified 05/14/18 14:15 nalbuphine AdvReac Headache Verified 05/14/18 14:15 Nortriptyline AdvReac Headache Verified 05/14/18 14:15 tiagabine AdvReac Headache Verified 05/14/18 14:15 All Systems PM: A 10-system review of systems was performed and is negative for pertinent findings except as documented above in the HPI. - Constitutional Vitals: Temp Pulse Resp BP Pulse Ox 99.1 F 109 22 123/73 97 05/14/18 14:10 05/14/18 16:29 05/14/18 16:29 05/14/18 16:29 05/14/18 16:29 Exam: General: Alert and oriented, mild respiratory distress. HEENT:EOM, pupils equal, round and reactive. Cardiovascular:Normal S1 & S2, No JVD. Irregular rhythm and tachycardic Lungs: rales upto mid zones bilaterally, no rhonchi/wheeze Abdomen:Soft, non-tender, no rigidity. Extremities:No deformity or swelling Neurological:Normal cognition and motor skills. Non-focal Skin:Normal color, no rash, no lesions. Pulses:Carotid and radial pulses normal +2. Rest of the physical exam is non contributory Internal Med - H&P Results - Labs CBC & Chem 7: 05/14/18 15:01 05/14/18 15:01 Labs: Short CBC 05/14/18 Range/Units 15:01 WBC 11.8 H (4.3-11.1) K/mcL Hgb 13.4 (11.5-15.4) g/dL Hct 40.3 (35.3-44.9) % Plt Count 178 (140-400) K/mcL Neutrophils # 10.1 H (1.6-8.9) K/mcL BMP 05/14/18 15:01 Sodium 135 L Potassium 4.0 Chloride 102 Carbon Dioxide 25 BUN 30 H Creatinine 1.21 H Glucose 244 H Calcium 9.3 Cardiac Enzymes 05/14/18 Range/Units 15:01 Troponin I 0.05 H* (< 0.04) ng/mL - Impressions ITS Impressions Chest X-Ray 05/14/18 14:18 IMPRESSION: Findings concerning for pulmonary edema with small effusions. D/ / Gee Pantoja MD / Gee Pantoja MD Interpreting Provider: Gee Pantoja MD - Assessment and plan (1) Acute exacerbation of CHF (congestive heart failure) Current Visit: No Status: Acute Assessment and plan: Presented with acute onset of shortness of breath in the setting of A. fib with RVR Likely triggered by RVR in conjunction with excessive salt ingestion BNP 1013, CXR consistent with pulm edema Last echo 01/2017: EF intact, moderate diastolic dysfunction troponin 0.05 (chronically elevated), likely demand ischemia in the absence of angina or EKG changes but will trend to rule out ACS takes Lasix 60 mg twice a day in addition to metolazone 2.5 mg PRN -> will give additional IV lasix 40mg now for a total of 80mg Echocardiogram strict I&O, daily weight may need to uptitrate coreg for rate control, will reassess tomorrow once she is more euvolemic Qualifiers: Qualified Code(s): I50.33 - Acute on chronic diastolic (congestive) heart failure (2) Atrial fibrillation with rapid ventricular response Current Visit: No Status: Chronic Assessment and plan: likely responsible for decompensated heart failure on amiodarone, coreg, diltiazem, and coumadin INR therapeutic resume home meds, IF HR is persistently above 110, use lopressor 2.5mg Q6 PRN may need to uptitrate coreg or diltiazem for tighter HR control (3) CAD (coronary artery disease) Current Visit: No Status: Chronic Assessment and plan: On Plavix, beta jocelyne, statin, and imdur not on ASA as patient is on warfarin to avoid triple therapy continue home meds Qualifiers: Coronary Disease-Associated Artery/Lesion type: [place] artery [place] vs. 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: with cooking teacher use Diabetes mellitus complication status: with neurologic complications Diabetes mellitus complication detail: with polyneuropathy Qualified Code(s): E11.42 - Type 2 diabetes mellitus with diabetic polyneuropathy; Z79.4 - nursing home (current) use of insulin (5) CKD (chronic kidney disease), stage III Current Visit: No Status: Chronic Assessment and plan: Creatinine at her baseline (6) DVT prophylaxis Current Visit: No Status: Acute Assessment and plan: On Coumadin at home and INR is therapeutic - Time Spent With Patient Total time spent is greater than 50% in coordination of care (as documented) at patient's floor/unit and/or counseling patient:
[2018-05-14] MEDS ORDERED: Nitroglycerin 0.4 MG TAB.SUBL SL PRN (17:10)
[2018-05-14] MEDS ORDERED: traZODone 50 MG TABLET PO PRN (17:10)
[2018-05-14] MEDS ORDERED: D5% in Water 1,000 ML IVC PRN (17:16)
[2018-05-14] MEDS ORDERED: *HR* Dextrose 50 % in Water (Syg) 50 ML SYRINGE IVP PRN (17:16)
[2018-05-14] MEDS ORDERED: Dextrose Gel 15 GM/37.5 ML TUBE PO PRN ×2 (17:16)
[2018-05-14] MEDS ORDERED: *HR* Warfarin 1 MG TABLET PO SCH (18:00)
--- NOTE | 2018-05-14 19:42 | Emergency Department Note ---
Disposition Clinical Impression: Pacemaker, LBBB (left bundle branch block) Combined systolic and diastolic congestive heart failure Qualifiers: Qualified Code(s): I50.43 - Acute on chronic combined systolic (congestive) and diastolic (congestive) heart failure CHF exacerbation Qualifiers: Qualified Code(s): I50.33 - Acute on chronic diastolic (congestive) heart failure Disposition: Admitted As Inpatient Condition: Good Referrals: Adalberto Quijano MD [Primary Care Provider] - SOB HPI - General Chief Complaint: ED Shortness of Breath/Dyspnea Stated Complaint: JESÚS Time Seen by Provider: 05/14/18 14:09 Source: patient, EMS Mode of arrival: EMS Limitations: no limitations Nursing Notes Reviewed: Yes Vital Signs Reviewed: Yes - Related Data Home Medications Medication Instructions Recorded Confirmed Escitalopram [Lexapro] 20 mg PO QAM 05/16/15 09/13/17 Rosuvastatin [Crestor] 40 mg PO QPM 05/16/15 09/13/17 Insulin Glargine,Hum.rec.anlog 30 unit SQ HS 07/06/16 09/13/17 [Lantus Solostar] Insulin LISPRO [Humalog] 2 - 10 unit SQ TIDWM 07/06/16 09/13/17 Oxygen 2 l NS AD 08/07/16 09/13/17 traZODone [TraZODone] 50 mg PO HS PRN 03/19/17 09/13/17 Potassium Chloride [K-Tab ER] 20 meq PO BID 07/06/17 09/13/17 Spironolactone [Aldactone] 25 mg PO DAILY 07/06/17 09/13/17 Furosemide [Lasix] 60 mg PO BID 09/13/17 09/13/17 Amiodarone HCl [Pacerone] 200 mg 01/03/18 Ranolazine [Ranexa] 1,000 mg PO BID 01/03/18 01/03/18 Anastrozole [Arimidex] 1 mg PO DAILY 05/14/18 05/14/18 Diltiazem HCl [Diltiazem 24Hr Cd] 240 mg PO DAILY 05/14/18 05/14/18 Isosorbide MONOnitrate (24 HR) 60 mg PO BID 05/14/18 05/14/18 [Imdur] Pantoprazole Sodium [Protonix] 40 mg PO DAILY 05/14/18 05/14/18 Warfarin Sodium [Warfarin Sodium] 1 mg PO SUTUTHFR 05/14/18 05/14/18 Warfarin Sodium [Warfarin Sodium] 2 mg PO MOWESA 05/14/18 05/14/18 metOLazone [Zaroxolyn] 2.5 mg PO 2XW 05/14/18 05/14/18 Previous Rx's Medication Instructions Recorded Nitroglycerin 0.4 mg SL Q5MIN PRN #0 tab.subl 07/10/16 Clopidogrel [Plavix] 75 mg PO DAILY #30 tablet 08/15/16 Carvedilol [Coreg] 3.125 mg PO BIDWM #60 tablet 08/18/17 Allergies Allergy/AdvReac Type Severity Reaction Status Date / Time phenylbutazone Allergy Rash Verified 05/14/18 14:15 [From Butazolidin] amitriptyline [From Elavil] AdvReac Headache Verified 05/14/18 14:15 codeine AdvReac Headache Verified 05/14/18 14:15 desipramine AdvReac Headache Verified 05/14/18 14:15 lisinopril AdvReac Cough Verified 05/14/18 14:15 meperidine [From Demerol] AdvReac Headache Verified 05/14/18 14:15 nalbuphine AdvReac Headache Verified 05/14/18 14:15 Nortriptyline AdvReac Headache Verified 05/14/18 14:15 tiagabine AdvReac Headache Verified 05/14/18 14:15 Constitutional: Denies: fever, chills, weight change Eyes: Denies: vision change ENT ED: Denies: ear pain, throat pain, dental pain, hearing loss, epistaxis, congestion, dysphagia Cardiovascular: Reports: orthopnea. Denies: chest pain, edema Respiratory: Reports: cough, dyspnea, wheezes. Denies: hemoptysis, sputum production Gastrointestinal: Reports: nausea, vomiting, constipation. Denies: abdominal pain Genitourinary: Denies: dysuria, frequency, hematuria Musculoskeletal: Denies: back pain, neck pain, arthralgia, myalgia Integumentary: Denies: rash, abrasion, lesions Neurological: Denies: headache, weakness, numbness, paresthesias, confusion, abnormal gait, vertigo Psychiatric: Denies: anxiety, depression, suicidal thoughts, homicidal thoughts , auditory hallucinations, visual hallucinations Endocrine: Denies: fatigue Hematological/Lymphatic: Denies: easy bleeding, easy bruising Allergic/Immunologic: Denies: facial swelling, urticaria Past Medical History - Past Medical History Medical history: Reports: arthritis, cancer, CHF, coronary artery disease, CVA, diabetes, GERD, hypertension Surgical history: Reports: angioplasty/stent, breast surgery, cancer surgery, carotid endarterectomy, cholecystectomy, orthopedic, other, pacemaker Psychiatric history: Reports: depression 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 history - Social History Smoking Status: Never smoker Smokeless Tobacco Status: No Alcohol use: Reports: occasionally Drug use: Reports: none Physical Exam - General Limitations: no limitations General appearance: alert, in no apparent distress Course Vital Signs Temperature 99.1 F 05/14/18 14:10 Pulse Rate 104 05/14/18 14:10 Respiratory Rate 18 05/14/18 14:10 Blood Pressure 122/62 05/14/18 14:10 O2 Sat by Pulse Oximetry 97 05/14/18 14:10 Temperature 99.1 F 05/14/18 14:10 Pulse Rate 109 05/14/18 16:29 Respiratory Rate 22 05/14/18 18:20 Blood Pressure 112/69 05/14/18 18:20 O2 Sat by Pulse Oximetry 97 05/14/18 16:29 Oxygen Delivery Oxygen Delivery Room Air Shortness of Breath/Dyspnea - Lab Data Result diagrams: 05/14/18 15:01 05/14/18 15:01 Lab Results 05/14/18 05/14/18 05/14/18 Range/Units 15:01 15:01 15:01 WBC 11.8 H (4.3-11.1) K/mcL RBC 4.87 (3.82-4.97) M/mcL Hgb 13.4 (11.5-15.4) g/dL Hct 40.3 (35.3-44.9) % MCV 82.8 L (83.0-100.0) fL MCH 27.5 L (28.0-33.3) pg MCHC 33.3 (31.6-35.5) g/dL RDW 13.6 (11.5-14.5) % Plt Count 178 (140-400) K/mcL MPV 9.8 (9.4-12.4) fL Immature Gran % 0.4 (0-4) % Seg Neutrophils % 85.5 % Lymphocytes % 6.4 % Monocytes % 7.1 % Eosinophils % 0.3 % Basophils % 0.3 % Neutrophils # 10.1 H (1.6-8.9) K/mcL Lymphocytes # 0.8 (0.6-4.6) K/mcL Monocytes # 0.8 (0.0-1.3) K/mcL Eosinophils # 0.0 (0.0-0.6) K/mcL Basophils # 0.0 (0.0-0.2) K/mcL PT (9.4-12.1) Seconds INR Sodium 135 L (136-145) mEq/L Potassium 4.0 (3.5-5.1) mEq/L Chloride 102 (98-107) mEq/L Carbon Dioxide 25 (23-29) mEq/L BUN 30 H (8-23) mg/dL Creatinine 1.21 H (0.60-1.20) mg/dL Est GFR ( Amer) 53 L (> 60) Est GFR (Non-Af Amer) 44 L (> 60) BUN/Creatinine Ratio 25 (6-26) Glucose 244 H (70-105) mg/dL Calculated Osmolality 294 (280-300) Lactic Acid 0.9 (0.5-2.2) mmol/L Calcium 9.3 (8.6-10.3) mg/dL Magnesium 2.5 (1.6-2.6) mg/dL Troponin I 0.05 H* (< 0.04) ng/mL B-Natriuretic Peptide (Less than 100) pg/mL 05/14/18 05/14/18 Range/Units 15:01 15:01 WBC (4.3-11.1) K/mcL RBC (3.82-4.97) M/mcL Hgb (11.5-15.4) g/dL Hct (35.3-44.9) % MCV (83.0-100.0) fL MCH (28.0-33.3) pg MCHC (31.6-35.5) g/dL RDW (11.5-14.5) % Plt Count (140-400) K/mcL MPV (9.4-12.4) fL Immature Gran % (0-4) % Seg Neutrophils % % Lymphocytes % % Monocytes % % Eosinophils % % Basophils % % Neutrophils # (1.6-8.9) K/mcL Lymphocytes # (0.6-4.6) K/mcL Monocytes # (0.0-1.3) K/mcL Eosinophils # (0.0-0.6) K/mcL Basophils # (0.0-0.2) K/mcL PT 25.2 H (9.4-12.1) Seconds INR 2.2 Sodium (136-145) mEq/L Potassium (3.5-5.1) mEq/L Chloride (98-107) mEq/L Carbon Dioxide (23-29) mEq/L BUN (8-23) mg/dL Creatinine (0.60-1.20) mg/dL Est GFR ( Amer) (> 60) Est GFR (Non-Af Amer) (> 60) BUN/Creatinine Ratio (6-26) Glucose (70-105) mg/dL Calculated Osmolality (280-300) Lactic Acid (0.5-2.2) mmol/L Calcium (8.6-10.3) mg/dL Magnesium (1.6-2.6) mg/dL Troponin I (< 0.04) ng/mL B-Natriuretic Peptide 1013 H (Less than 100) pg/mL Attestation Statement - Attestation Attestation: I, Andrew Lizarraga, examined this patient and my medical decision-making was reviewed with the MARGIN ANALYST/PA/Advanced Practice Nurse/Resident Physician. I agree with the documented findings, disposition and treatment plan as described except to the extent set forth below. 72-year-old female presents emergency Department with concerns of difficulty in breathing. Patient states she has a history of congestive heart failure and chronic kidney disease. She states that her daughter is moving away to [place] and had a democrat where she indulged in salty foods. Patient states she has had increasing shortness of breath since that time. This feels similar to her previous CHF exacerbations. Patient had some mild respiratory distress on initial evaluation and this improved with placement of BiPAP. Patient had a chest x-ray which showed likely vascular congestion. Patient given Lasix in the emergency department. She felt comfortable with the plan for admission to hospital for further care and evaluation.
[2018-05-14] MEDS: Ranolazine 500 MG TAB.ER.12H PO SCH (21:54)
[2018-05-14] MEDS: Isosorbide MONOnitrate (24 HR) 60 MG TAB.ER.24H PO SCH (21:55)
[2018-05-14] MEDS: Insulin LISPRO 300 UNITS/3 ML VIAL SQ SCH (21:56)
[2018-05-14] MEDS: Insulin DETEMIR 100 UNIT/ML X5UNITS SQ SCH (21:57)
[2018-05-14] MEDS: Furosemide 40 MG/4 ML VIAL IVP SCH (21:58)
[2018-05-15 04:34] LABS: Basophils % 0.3 %; Eosinophils % 0.4 %; Hematocrit 35.7 % (35.3-44.9); Hemoglobin 11.9 g/dL (11.5-15.4); Immature Granulocytes % 0.6 % (0-4); Mean Corpuscular HGB Conc 33.3 g/dL (31.6-35.5); Mean Corpuscular Hemoglobin 27.6 pg (28.0-33.3); Mean Corpuscular Volume 82.8 fL (83.0-100.0); Mean Platelet Volume 9.6 fL (9.4-12.4); Monocytes # 0.9 K/mcL (0.0-1.3); Monocytes % 8.5 %; Neutrophils # 8.8 K/mcL (1.6-8.9); Platelet Count 173 K/mcL (140-400); Red Blood Count 4.31 M/mcL (3.82-4.97); Red Cell Distribution Width 13.7 % (11.5-14.5); Segmented Neutrophils % 81.2 %
[2018-05-15 04:46] LABS: INR 2.1; Prothrombin Time 23.3 Seconds (9.4-12.1)
[2018-05-15 04:49] LABS: Calcium 9.2 mg/dL (8.6-10.3); Magnesium 2.3 mg/dL (1.6-2.6)
[2018-05-15] MEDS: Insulin LISPRO 300 UNITS/3 ML VIAL SQ SCH ×4 (07:52→21:23)
[2018-05-15] MEDS: Ranolazine 500 MG TAB.ER.12H PO SCH ×2 (08:21→21:20)
[2018-05-15] MEDS: Furosemide 40 MG/4 ML VIAL IVP SCH ×2 (08:21→16:52)
[2018-05-15] MEDS: *HR* Amiodarone 200 MG TABLET PO SCH (08:21)
[2018-05-15] MEDS: Anastrozole 1 MG TABLET PO SCH (08:21)
--- NOTE | 2018-05-15 08:59 | Internal Med Progress Note ---
Hospitalist Progress Note - Encounter Date of Encounter: 05/15/18 Time of Encounter: 08:30 - Subjective Interval History: No acute events overnight - Exam Vitals: Temp Pulse Resp BP Pulse Ox 98.7 F 100 15 105/62 100 05/15/18 07:00 05/15/18 07:00 05/15/18 07:00 05/15/18 07:00 05/15/18 07:00 Exam: General: Alert and oriented, mild respiratory distress. HEENT:EOM, pupils equal, round and reactive. Cardiovascular:Normal S1 & S2, No JVD. Irregular rhythm and tachycardic Lungs: Has bilateral crackles, rales upto mid zones bilaterally, no rhonchi/ wheeze Abdomen:Soft, non-tender, no rigidity. Extremities:No deformity or swelling Neurological:Normal cognition and motor skills. Non-focal Skin:Normal color, no rash, no lesions. - Assessment and Plan (1) Atrial fibrillation with rapid ventricular response Current Visit: No Status: Chronic Assessment and Plan: likely responsible for decompensated heart failure. Now rate controlled Continue on amiodarone, coreg, diltiazem, and coumadin (2) Acute exacerbation of CHF (congestive heart failure) Current Visit: No Status: Acute Assessment and Plan: Presented with acute onset of shortness of breath in the setting of A. fib with RVR Likely triggered by RVR in conjunction with excessive salt ingestion BNP 1013, CXR consistent with pulm edema Last echo 01/2017: EF intact, moderate diastolic dysfunction troponin 0.05 (chronically elevated), likely demand ischemia in the absence of angina or EKG changes but will trend to rule out ACS takes Lasix 60 mg twice a day in addition to metolazone 2.5 mg PRN -> will give additional IV lasix 40mg now for a total of 80mg 05/15. continue BID lasix. Patient diuresing well, shortness of breath has improved (3) Diabetes Current Visit: No Status: Chronic Assessment and Plan: On Lantus 30 units at night and varying dose of lispro with meals continue home dose of lantus and add low-dose sliding scale (4) DVT prophylaxis Current Visit: No Status: Acute Assessment and Plan: On Coumadin at home and INR is therapeutic (5) CKD (chronic kidney disease), stage III Current Visit: No Status: Chronic Assessment and Plan: Creatinine at her baseline. Monitor creatinine on lasix (6) CAD (coronary artery disease) Current Visit: No Status: Chronic Assessment and Plan: On Plavix, beta jocelyne, statin, and imdur not on ASA as patient is on warfarin to avoid triple therapy continue home meds - Time Spent with Patient Total time spent is greater than 50% in coordination of care (as documented) at patient's floor/unit and/or counseling patient: Internal Medicine: Result - Labs CBC & Chem 7: 05/15/18 04:20 05/15/18 04:20 Labs: Short CBC 05/15/18 Range/Units 04:20 WBC 10.8 (4.3-11.1) K/mcL Hgb 11.9 D (11.5-15.4) g/dL Hct 35.7 (35.3-44.9) % Plt Count 173 (140-400) K/mcL Neutrophils # 8.8 (1.6-8.9) K/mcL BMP 05/15/18 04:20 Sodium 135 L Potassium 4.0 Chloride 101 Carbon Dioxide 26 BUN 29 H Creatinine 1.28 H Glucose 131 H Calcium 9.2 Cardiac Enzymes 05/14/18 05/15/18 Range/Units 21:06 04:20 Troponin I 0.05 H* 0.06 H* (< 0.04) ng/mL - ABG Interpretation ABG results: PT/INR, D-dimer PT 23.3 Seconds (9.4-12.1) H 05/15/18 04:20 Consult Discharge Plan - Plan Referrals: Adalberto Quijano MD [Primary Care Provider] - (3) Diabetes Qualifiers: Diabetes mellitus type: type 2 Diabetes mellitus longterm insulin use: with terminal makeup operator use Diabetes mellitus complication status: with neurologic complications Diabetes mellitus complication detail: with polyneuropathy Qualified Code(s): E11.42 - Type 2 diabetes mellitus with diabetic polyneuropathy; Z79.4 - terminal makeup operator (current) use of insulin (6) CAD (coronary artery disease) Qualifiers: Coronary Disease-Associated Artery/Lesion type: [place] artery [place] vs. transplanted heart: [place] heart Associated angina: with unspecified angina Qualified Code(s): I25.119 - Atherosclerotic heart disease of [place] coronary artery with unspecified angina pectoris
[2018-05-15] MEDS: Diltiazem CD (24hr) 240 MG CAPSULE PO SCH (11:10)
[2018-05-15] MEDS: Spironolactone 25 MG TABLET PO SCH (11:20)
[2018-05-15] MEDS: Isosorbide MONOnitrate (24 HR) 60 MG TAB.ER.24H PO SCH ×2 (11:21→21:20)
[2018-05-15] MEDS ORDERED: *HR* Warfarin 2 MG TABLET PO SCH (18:00)
[2018-05-15] MEDS: Insulin DETEMIR 100 UNIT/ML X5UNITS SQ SCH (21:20)
[2018-05-16] MEDS: Insulin LISPRO 300 UNITS/3 ML VIAL SQ SCH ×2 (07:33→13:01)
[2018-05-16] MEDS: *HR* Amiodarone 200 MG TABLET PO SCH (07:51)
[2018-05-16] MEDS: Anastrozole 1 MG TABLET PO SCH (07:51)
[2018-05-16] MEDS: Ranolazine 500 MG TAB.ER.12H PO SCH (07:51)
--- NOTE | 2018-05-16 08:08 | Discharge Summary ---
Orders not resulted at time of discharge: Pending orders 05/16/18 00:27 ECG 12 lead ECG [ECG] Stat Date of Encounter: 05/16/18 Time of Encounter: 08:00 - Discharge Diagnosis (1) Atrial fibrillation with rapid ventricular response Priority: Primary Status: Chronic Assessment and Plan: 72 year old female with past medical history of heart failure with preserved EF , atrial fibrillation on Coumadin, sick sinus syndrome status post pacemaker insertion, diabetes, CAD, CKD stage III, presented to the ED with acute onset of soreness of breath. States that she started having dyspnea at home associated with palpitation. She was given IV lasix in the ED and placed on BiPAP. She was assessed with afib with mild RVR and acute worsening of chronic diastolic CHF. She was resumed on her home meds of amiodarone, coreg, diltiazem , and coumadin and diuresed with Iv lasix BID. She improved considerably over 2 days and was discharged home in a stable condition (2) Diabetes Priority: Secondary Status: Chronic Assessment and Plan: On Lantus 30 units at night and varying dose of lispro with meals continue home dose of lantus and add low-dose sliding scale Qualifiers: Diabetes mellitus type: type 2 Diabetes mellitus intermodal customer service insulin use: with detention use Diabetes mellitus complication status: with neurologic complications Diabetes mellitus complication detail: with polyneuropathy Qualified Code(s): E11.42 - Type 2 diabetes mellitus with diabetic polyneuropathy; Z79.4 - ad terminal makeup operator (current) use of insulin (3) DVT prophylaxis Priority: Secondary Status: Acute (4) CKD (chronic kidney disease), stage III Priority: Secondary Status: Chronic (5) CAD (coronary artery disease) Priority: Secondary Status: Chronic Qualifiers: Coronary Disease-Associated Artery/Lesion type: [place] artery [place] vs. transplanted heart: [place] heart Associated angina: with unspecified angina Qualified Code(s): I25.119 - Atherosclerotic heart disease of [place] coronary artery with unspecified angina pectoris (6) Combined systolic and diastolic congestive heart failure Priority: Primary Status: Acute Assessment and Plan: Presented with acute onset of shortness of breath in the setting of A. fib with RVR Likely triggered by RVR in conjunction with excessive salt ingestion BNP 1013, CXR consistent with pulm edema Last echo 01/2017: EF intact, moderate diastolic dysfunction troponin 0.05 (chronically elevated), likely demand ischemia in the absence of angina or EKG changes but will trend to rule out ACS takes Lasix 60 mg twice a day in addition to metolazone 2.5 mg PRN -> will give additional IV lasix 40mg now for a total of 80mg 05/15. continue BID lasix. Patient diuresing well, shortness of breath has improved Qualifiers: Qualified Code(s): I50.41 - Acute combined systolic (congestive) and diastolic (congestive) heart failure Hospital course: Ms. Fischer is a 72 year old female - Time Spent with Patient Total time spent providing and/or coordinating discharge services: - Discharge Medications Home Medications: Escitalopram [Lexapro] 20 mg PO QAM 05/16/15 [History] Rosuvastatin [Crestor] 40 mg PO QPM 05/16/15 [History] Insulin Glargine,Hum.rec.anlog [Lantus Solostar] 30 unit SQ HS 07/06/16 [History ] Insulin LISPRO [Humalog] 2 - 10 unit SQ TIDWM 07/06/16 [History] Nitroglycerin 0.4 mg SL Q5MIN PRN #0 tab.subl 07/10/16 [Rx] Oxygen 2 l NS AD 08/07/16 [History] Clopidogrel [Plavix] 75 mg PO DAILY #30 tablet 08/15/16 [Rx] traZODone [TraZODone] 50 mg PO HS PRN 03/19/17 [History] Potassium Chloride [K-Tab ER] 20 meq PO BID 07/06/17 [History] Spironolactone [Aldactone] 25 mg PO DAILY 07/06/17 [History] Carvedilol [Coreg] 3.125 mg PO BIDWM #60 tablet 08/18/17 [Rx] Furosemide [Lasix] 60 mg PO BID 09/13/17 [History] Amiodarone HCl [Pacerone] 200 mg PO DAILY 01/03/18 [History] Ranolazine [Ranexa] 1,000 mg PO BID 01/03/18 [History] Anastrozole [Arimidex] 1 mg PO DAILY 05/14/18 [History] Diltiazem HCl [Diltiazem 24Hr Cd] 240 mg PO DAILY 05/14/18 [History] Isosorbide MONOnitrate (24 HR) [Imdur] 60 mg PO BID 05/14/18 [History] Pantoprazole Sodium [Protonix] 40 mg PO DAILY 05/14/18 [History] Warfarin Sodium 1 mg PO SUTUTHFR 05/14/18 [History] Warfarin Sodium 2 mg PO MOWESA 05/14/18 [History] metOLazone [Zaroxolyn] 2.5 mg PO 2XW 05/14/18 [History] Allergies/Adverse Reactions: 3 Allergy/AdvReac Type Severity Reaction Status Date / Time phenylbutazone Allergy Rash Verified 05/14/18 14:15 [From Butazolidin] amitriptyline [From Elavil] AdvReac Headache Verified 05/14/18 14:15 codeine AdvReac Headache Verified 05/14/18 14:15 desipramine AdvReac Headache Verified 05/14/18 14:15 lisinopril AdvReac Cough Verified 05/14/18 14:15 meperidine [From Demerol] AdvReac Headache Verified 05/14/18 14:15 nalbuphine AdvReac Headache Verified 05/14/18 14:15 Nortriptyline AdvReac Headache Verified 05/14/18 14:15 tiagabine AdvReac Headache Verified 05/14/18 14:15 Date of admission: 05/14/18 17:25 Primary care physician: Adalberto Quijano MD - Constitutional Vitals: Temp Pulse Resp BP Pulse Ox 98.7 F 105 15 87/59 94 05/16/18 06:58 05/16/18 06:58 05/16/18 06:58 05/16/18 06:58 05/16/18 06:58 Exam: General: Alert and oriented, mild respiratory distress. HEENT:EOM, pupils equal, round and reactive. Cardiovascular:Normal S1 & S2, No JVD. Irregular rhythm and tachycardic Lungs: improved. CTAB Abdomen:Soft, non-tender, no rigidity. Extremities:No deformity or swelling Neurological:Normal cognition and motor skills. Non-focal Skin:Normal color, no rash, no lesions. - Head Head exam: Present: atraumatic, normocephalic - Eye Eye exam: Present: PERRL, conjuntiva pink, sclera anicteric Pupils: Present: PERRL - Neck Neck exam general surgery: Present: supple, trachea midline. Absent: lymphadenopathy - Respiratory Respiratory exam: Present: CTAB. Absent: accessory muscle use, rales, rhonchi, wheezes - Cardiovascular Cardiovascular exam: Present: irregular rhythm, +S1, +S2. Absent: diastolic murmur, gallop, rubs, systolic murmur - GI/Abdominal GI/Abdominal exam: Present: normal bowel sounds, soft, no peritoneal signs. Absent: distended, tenderness - Extremities Exam Extremities exam: Present: warm, radial pulses palpable and symmetrical. Absent : calf tenderness, cyanotic, pedal edema - Neurological Exam Neurological exam: Present: CN II-XII intact, oriented X3, no focal deficits. Absent: pronater drift, facial droop, speech deficit - Skin Skin exam: Present: dry, intact - Patient Status Disposition: Home, Self-Care Condition: Good - Discharge Instructions Instructions: Heart Failure (DC), Atrial Fibrillation (DC), Chest Pain (DC), Urinary Tract Infection in Women (DC), Diabetes Mellitus Type 2 in Adults (DC), Chronic Obstructive Pulmonary Disease (DC), Sepsis (DC), Chronic Hypertension ( DC), Fall Prevention (DC) Follow Up With: Adalberto Quijano MD [Primary Care Provider] - Forms: ED Satisfaction Letter
[2018-05-16] MEDS ORDERED: Furosemide 40 MG/4 ML VIAL IVP SCH (09:00)
[2018-05-16] MEDS: Spironolactone 25 MG TABLET PO SCH (12:34)
[2018-05-16] MEDS: Isosorbide MONOnitrate (24 HR) 60 MG TAB.ER.24H PO SCH (12:34)
[2018-05-16] MEDS: Diltiazem CD (24hr) 240 MG CAPSULE PO SCH (12:34)
[2018-05-16 13:42] VITALS: BP 106/70
--- NOTE | 2018-05-18 21:14 | Electrocardiograph Report ---
[address] [place], [place] [address] Test Date: 2018-05-14 Pat Name: Miriam Fischer Department: EXAM3 Room: 2NE16 Gender: F Multiple [employer] Operator: : 1945 Requested By: Andrew Lizarraga Order Number: [id number] Reading MD: Loyda Neville Measurements Intervals [place] Rate: 98 P: [place]: QRS: -71 QRSD: 158 T: 98 QT: 406 QTc: 519 Interpretive Statements Atrial fibrillation Left bundle branch block Left axis deviation Electronically Signed On 05-18-2018 21:13:12 EDT by Loyda Neville
--- NOTE | 2018-05-19 21:46 | Electrocardiograph Report ---
[place] [address] Test Date: 2018-05-16 Pat Name: Miriam Fischer Department: 111 Room: 2NE16 Gender: F [employer] Operator: [id number] : 1945 Requested By: Chris French Order Number: [id number] Reading MD: Misha Paul Measurements Intervals [place] Rate: 98 P: [place]: 0 QRS: -42 QRSD: 154 T: 93 QT: 410 QTc: 465 Interpretive Statements ATRIAL FIBRILLATION MARKED LEFT AXIS DEVIATION Left bundle branch block Electronically Signed On 05-19-2018 21:45:03 EDT by Misha Paul
== END 2018-05-16 15:24 | disposition home or self-care (01) ==
LOC: EMEROOARM 14:02 → 2NENU 14:02
PROVIDERS: ADMIT Student in an Organized Health Care Education/Training Program; ATTEND Student in an Organized Health Care Education/Training Program

== ENCOUNTER 2019-01-11 17:16 | Observation (INO) ==
[2019-01-11] MEDS ORDERED: Aspirin 81 MG TAB.CHEW PO ONE (17:59)
[2019-01-11] MEDS ORDERED: Nitroglycerin 0.4 MG TAB.SUBL SL PRN (17:59)
--- NOTE | 2019-01-11 18:04 | Emergency Department Note ---
Disposition Clinical Impression: Elevated troponin [id number] kidney injury Qualifiers: Acute renal failure type: unspecified Chronic kidney disease stage: unspecified stage Qualified Code(s): N17.9 - Acute kidney failure, unspecified Chest pain Qualifiers: Chest pain type: unspecified Qualified Code(s): R07.9 - Chest pain, unspecified Disposition: Admitted As Inpatient Condition: Fair Time of Disposition: 21:30 Chest Pain HPI - General Chief Complaint: ED Chest Pain Stated Complaint: CP/JESÚS Time Seen by Provider: 01/11/19 17:32 Source: patient Mode of arrival: private vehicle Limitations: no limitations Vital Signs Reviewed: Yes Nursing Notes Reviewed: Yes - History of Present Illness HPI Narrative: 73-year-old female with past medical history of CHF that was recently admitted to a hospital in [place] for very similar complaints where she underwent a heart catheterization where they said that she had a small branch of her coronary artery that had an 80% blockage but that it could not be stented. Patient was discharged on 12.5 mg of Cardizem, however at bedside thinks this is too much medication so cut her dosage back to 3 mg once per day. at bedside also reports that she takes 120 mg of Lasix per day and he thinks that she looks dehydrated. However, he states that if you try to take her off Lasix it will cause a CHF exacerbation. Patient is complaining of chest pain that started approximately 4 hours ago when she was trying to get out of bed, she describes it as a left sided chest pressure that radiates into her left shoulder. It gets worse when she gets up and tries to move around. It is accompanied by lightheadedness, shortness of breath, nausea. She describes it as an 8 out of 10 in severity. Patient is also endorsing any headache, difficulty initiating micturition, and weakness in both upper extremities and lower extremities that she states has been going on for years. Severity scale (1-10): 8 - Related Data Home Medications Medication Instructions Recorded Confirmed Escitalopram [Lexapro] 20 mg PO QAM 05/16/15 01/11/19 Rosuvastatin [Crestor] 40 mg PO QPM 05/16/15 01/11/19 Insulin Glargine,Hum.rec.anlog 40 unit SQ HS 07/06/16 01/11/19 [Lantus Solostar] Insulin LISPRO [Humalog] 8 unit SQ TIDWM 07/06/16 01/11/19 Oxygen 2 l NS AD 08/07/16 01/11/19 traZODone [TraZODone] 50 mg PO HS PRN 03/19/17 01/11/19 Furosemide [Lasix] 60 mg PO BID 09/13/17 01/11/19 Amiodarone HCl [Pacerone] 200 mg PO DAILY 01/03/18 01/11/19 Ranolazine [Ranexa] 1,000 mg PO BID 01/03/18 01/11/19 Anastrozole [Arimidex] 1 mg PO DAILY 05/14/18 01/11/19 Diltiazem HCl [Diltiazem 24Hr Cd] 240 mg PO DAILY 05/14/18 01/11/19 Isosorbide MONOnitrate (24 HR) 120 mg PO BID 05/14/18 01/11/19 [Imdur] Pantoprazole Sodium [Protonix] 40 mg PO DAILY 05/14/18 01/11/19 metOLazone [Zaroxolyn] 2.5 mg PO 2XW PRN 05/14/18 01/11/19 Carvedilol 3.125 mg PO BID 01/11/19 01/11/19 Docusate [Colace] 100 mg PO DAILY PRN 01/11/19 01/11/19 Magnesium Citrate [Citroma] 150 ml PO DAILY PRN 01/11/19 01/11/19 Potassium Chloride [Klor-Con 10] 20 meq PO BID 01/11/19 01/11/19 Spironolactone [Aldactone] 25 mg PO DAILY 01/11/19 01/11/19 Warfarin [Coumadin] 2 mg PO 1800 01/11/19 01/11/19 Previous Rx's Medication Instructions Recorded Nitroglycerin 0.4 mg SL Q5MIN PRN #0 tab.subl 07/10/16 Clopidogrel [Plavix] 75 mg PO DAILY #30 tablet 08/15/16 Allergies Allergy/AdvReac Type Severity Reaction Status Date / Time phenylbutazone Allergy Rash Verified 05/14/18 14:15 [From Butazolidin] amitriptyline [From Elavil] AdvReac Headache Verified 05/14/18 14:15 codeine AdvReac Headache Verified 05/14/18 14:15 desipramine AdvReac Headache Verified 05/14/18 14:15 lisinopril AdvReac Cough Verified 05/14/18 14:15 meperidine [From Demerol] AdvReac Headache Verified 05/14/18 14:15 nalbuphine AdvReac Headache Verified 05/14/18 14:15 Nortriptyline AdvReac Headache Verified 05/14/18 14:15 tiagabine AdvReac Headache Verified 05/14/18 14:15 Review of Systems: All systems ED: reviewed and negative except as stated. Constitutional: Denies: fever, chills ENT ED: Denies: ear pain, throat pain Reports: Cardiovascular: Denies: palpitations Reports: chest pain, diaphoresis Respiratory: Denies: cough, dyspnea Gastrointestinal: Denies: abdominal pain, vomiting, diarrhea, constipation Reports: nausea Genitourinary: Denies: urgency, dysuria, frequency Musculoskeletal: Denies: back pain, neck pain Integumentary: Denies: rash, abrasion Neurological: Denies: weakness, numbness, paresthesias Reports: lightheadedness, headache Psychiatric: Denies: anxiety, depression Endocrine: Denies: fatigue, heat or cold intolerance Hematological/Lymphatic: Denies: easy bleeding, easy bruising Allergic/Immunologic: Denies: facial swelling, urticaria Chest Pain PMH - Past Medical History Medical history: Reports: arthritis, cancer, CHF, coronary artery disease, CVA, diabetes, GERD, hypertension Surgical history: Reports: angioplasty/stent, breast surgery, cancer surgery, carotid endarterectomy, cholecystectomy, orthopedic, other, pacemaker Psychiatric history: Reports: depression 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 Appears mildly distressed. Well developed, well nourished. Head: atraumatic, normocephalic. ENT: No conjunctival injection, no scleral icterus. PERRLA. EOMI. Oropharynx non- erythematous. mucous membranes tacky. Neuro: No focal deficits, no speech deficit, no facial droop, mentating well. BUE/BLE Str 5/5. Pulm: Lungs CTAB A/P. No wheezes, rales, ronchi. Cardio: RRR no m/r/g. Chest tender to palpation in epigastric area and in right inframammary area. Abd: Soft, non-distended. Normoactive bowel sounds. Non-tender to palpation. No guarding. Non rigid. Extremities: Radial pulses 2+ marleny, dorsalis pedis/posterior tibialis 1+ marleny. No LE edema. No cyanosis, clubbing. Vascular insufficiency rashes over marleny LE. Skin: warm, dry, some evidence of scattered abrasions over LE consistent with vascular insufficiency. Psych: Appropriate mood and affect. Answers questions appropriately. Cooperative with exam. - General Limitations: no limitations General appearance: alert, in no apparent distress Course - Reevaluation(s) Reevaluation #1: Pt refused aspirin, has supratherapeutic INR. Cr >3, will give gentle hydration with consideration for CHF and start on 1.5x maintenance fluids if she tolerates bolus. Pt will need to be admitted for FLORES and elevated troponin. Time: 18:30 Vital Signs Temperature 97.7 F 01/11/19 17:18 Pulse Rate 72 01/11/19 17:18 Respiratory Rate 18 01/11/19 17:18 Blood Pressure 112/74 01/11/19 17:18 O2 Sat by Pulse Oximetry 100 01/11/19 17:18 Temperature 97.7 F 01/11/19 17:18 Pulse Rate 61 01/11/19 20:40 Respiratory Rate 16 01/11/19 19:31 Blood Pressure 103/80 01/11/19 20:40 O2 Sat by Pulse Oximetry 99 01/11/19 19:31 Oxygen Delivery Oxygen Delivery Room Air Chest Pain - [facility] Narrative Medical decision making narrative: Pts EKG showed LBBB, but was not new as this was listed on her problem list prior to this visit. Her Creatinine was elevated at 3.02 with evidence of pre- renal disease. She was given gentle hydration with initial bolus of 500mL given her hx of CHF. She was then started on maintenance fluids at 140mL/hr. Troponin was elevated at 0.08, which is double her last value. She refused aspirin when troponin result came back, and her INR was supratherapeutic at 5.6 so heparin was not indicated at this time. Chest pain was eventually controlled with nitro and then morphine. Pt was admitted to hospitalist, Dr. Erickson, for FLORES, who agreed to accept the patient to his service. Patient was given an opportunity to ask questions at bedside and all of their concerns were addressed. Patient verbalized understanding and agreement with plan of care. Pt remained stable while in the department. - Medical Records Medical records reviewed: Yes I reviewed the patient's medical records. - Lab Data Lab results reviewed: Yes I reviewed the patient's lab results. Result diagrams: 01/11/19 17:47 01/11/19 17:47 Lab Results 01/11/19 01/11/19 01/11/19 Range/Units 17:47 17:47 17:47 WBC 5.8 (4.3-11.1) K/mcL RBC 5.16 H (3.82-4.97) M/mcL Hgb 14.3 (11.5-15.4) g/dL Hct 41.0 (35.3-44.9) % MCV 79.5 L (83.0-100.0) fL MCH 27.7 L (28.0-33.3) pg MCHC 34.9 (31.6-35.5) g/dL RDW 13.6 (11.5-14.5) % Plt Count 220 (140-400) K/mcL MPV 10.2 (9.4-12.4) fL Immature Gran % 0.7 (0-4) % Seg Neutrophils % 69.3 % Lymphocytes % 16.4 % Monocytes % 11.2 % Eosinophils % 2.1 % Basophils % 0.3 % Neutrophils # 4.0 (1.6-8.9) K/mcL Lymphocytes # 1.0 (0.6-4.6) K/mcL Monocytes # 0.7 (0.0-1.3) K/mcL Eosinophils # 0.1 (0.0-0.6) K/mcL Basophils # 0.0 (0.0-0.2) K/mcL PT 63.4 H* (9.4-12.1) Seconds INR 5.6 H* APTT 48.0 H (26.0-36.0) Seconds Sodium 131 L (136-145) mEq/L Potassium 3.8 (3.5-5.1) mEq/L Chloride 90 L (98-107) mEq/L Carbon Dioxide 28 (23-29) mEq/L BUN 93 H (8-23) mg/dL Creatinine 3.02 H (0.60-1.20) mg/dL Est GFR ( Amer) 18 L (> 60) Est GFR (Non-Af Amer) 15 L (> 60) BUN/Creatinine Ratio 31 H (6-26) Glucose 284 H (70-105) mg/dL Calculated Osmolality 311 H (280-300) Calcium 10.3 (8.6-10.3) mg/dL Troponin I 0.08 H* (< 0.04) ng/mL B-Natriuretic Peptide (Less than 100) pg/mL Ur Specimen Adequacy Urine Color (Yellow) Urine Clarity (Clear) Urine pH (5.0-8.0) pH Units Ur Specific Roff (1.010-1.025) Urine Protein (Neg-Trace) mg/dL Urine Glucose (UA) (Normal) mg/dL Urine Ketones (Negative) mg/dL Urine Blood (Negative) Urine Nitrite (Negative) Urine Bilirubin (Negative) Urine Urobilinogen (Normal) mg/dL Ur Leukocyte Esterase (Negative) Urine Microscopic RBC (0-3) per hpf Urine Microscopic WBC (0-3) per hpf Ur Squamous Epith Cells (None-Few) per lpf Urine Bacteria (None-Few) per hpf Hyaline Casts (None-Few) per lpf Ur Culture Indicated? (NO) Urine Creatinine mg/dL Urine Sodium mEq/L Urine Urea Nitrogen mg/dL 01/11/19 01/11/19 01/11/19 Range/Units 17:47 20:38 20:38 WBC (4.3-11.1) K/mcL RBC (3.82-4.97) M/mcL Hgb (11.5-15.4) g/dL Hct (35.3-44.9) % MCV (83.0-100.0) fL MCH (28.0-33.3) pg MCHC (31.6-35.5) g/dL RDW (11.5-14.5) % Plt Count (140-400) K/mcL MPV (9.4-12.4) fL Immature Gran % (0-4) % Seg Neutrophils % % Lymphocytes % % Monocytes % % Eosinophils % % Basophils % % Neutrophils # (1.6-8.9) K/mcL Lymphocytes # (0.6-4.6) K/mcL Monocytes # (0.0-1.3) K/mcL Eosinophils # (0.0-0.6) K/mcL Basophils # (0.0-0.2) K/mcL PT (9.4-12.1) Seconds INR APTT (26.0-36.0) Seconds Sodium (136-145) mEq/L Potassium (3.5-5.1) mEq/L Chloride (98-107) mEq/L Carbon Dioxide (23-29) mEq/L BUN (8-23) mg/dL Creatinine (0.60-1.20) mg/dL Est GFR ( Amer) (> 60) Est GFR (Non-Af Amer) (> 60) BUN/Creatinine Ratio (6-26) Glucose (70-105) mg/dL Calculated Osmolality (280-300) Calcium (8.6-10.3) mg/dL Troponin I (< 0.04) ng/mL B-Natriuretic Peptide 187 H (Less than 100) pg/mL Ur Specimen Adequacy Urine Color Yellow (Yellow) Urine Clarity Cloudy A (Clear) Urine pH 5.5 (5.0-8.0) pH Units Ur Specific Roff 1.011 (1.010-1.025) Urine Protein 100 H (Neg-Trace) mg/dL Urine Glucose (UA) Normal (Normal) mg/dL Urine Ketones Negative (Negative) mg/dL Urine Blood Trace H (Negative) Urine Nitrite Negative (Negative) Urine Bilirubin Negative (Negative) Urine Urobilinogen Normal (Normal) mg/dL Ur Leukocyte Esterase Large H (Negative) Urine Microscopic RBC 0-3 (0-3) per hpf Urine Microscopic WBC TNTC H (0-3) per hpf Ur Squamous Epith Cells Moderate H (None-Few) per lpf Urine Bacteria Many H (None-Few) per hpf Hyaline Casts None Seen (None-Few) per lpf Ur Culture Indicated? YES A (NO) Urine Creatinine 56 mg/dL Urine Sodium 49.4 mEq/L Urine Urea Nitrogen mg/dL 01/11/19 Range/Units 20:58 WBC (4.3-11.1) K/mcL RBC (3.82-4.97) M/mcL Hgb (11.5-15.4) g/dL Hct (35.3-44.9) % MCV (83.0-100.0) fL MCH (28.0-33.3) pg MCHC (31.6-35.5) g/dL RDW (11.5-14.5) % Plt Count (140-400) K/mcL MPV (9.4-12.4) fL Immature Gran % (0-4) % Seg Neutrophils % % Lymphocytes % % Monocytes % % Eosinophils % % Basophils % % Neutrophils # (1.6-8.9) K/mcL Lymphocytes # (0.6-4.6) K/mcL Monocytes # (0.0-1.3) K/mcL Eosinophils # (0.0-0.6) K/mcL Basophils # (0.0-0.2) K/mcL PT (9.4-12.1) Seconds INR APTT (26.0-36.0) Seconds Sodium (136-145) mEq/L Potassium (3.5-5.1) mEq/L Chloride (98-107) mEq/L Carbon Dioxide (23-29) mEq/L BUN (8-23) mg/dL Creatinine (0.60-1.20) mg/dL Est GFR ( Amer) (> 60) Est GFR (Non-Af Amer) (> 60) BUN/Creatinine Ratio (6-26) Glucose (70-105) mg/dL Calculated Osmolality (280-300) Calcium (8.6-10.3) mg/dL Troponin I (< 0.04) ng/mL B-Natriuretic Peptide (Less than 100) pg/mL Ur Specimen Adequacy Urine Color (Yellow) Urine Clarity (Clear) Urine pH (5.0-8.0) pH Units Ur Specific Roff (1.010-1.025) Urine Protein (Neg-Trace) mg/dL Urine Glucose (UA) (Normal) mg/dL Urine Ketones (Negative) mg/dL Urine Blood (Negative) Urine Nitrite (Negative) Urine Bilirubin (Negative) Urine Urobilinogen (Normal) mg/dL Ur Leukocyte Esterase (Negative) Urine Microscopic RBC (0-3) per hpf Urine Microscopic WBC (0-3) per hpf Ur Squamous Epith Cells (None-Few) per lpf Urine Bacteria (None-Few) per hpf Hyaline Casts (None-Few) per lpf Ur Culture Indicated? (NO) Urine Creatinine mg/dL Urine Sodium mEq/L Urine Urea Nitrogen 316 mg/dL - Radiology Data Radiology results reviewed: Yes I reviewed the patient's radiology results. Chest X-Ray 01/11/19 17:21 IMPRESSION: No acute process. D/ / Coy Schultz MD / Coy Schultz MD Interpreting Provider: Coy Schultz MD - EKG Data EKG attestation: Yes I reviewed and interpreted this EKG. EKG results narrative: HR 61, rhythm atrial pacemaker, axis left at -57. QRS 186 and prolonged, QTc 506 and prolonged. Left bundle branch block. No old EKG available for comparison, however, left bundle branch block is listed on pt's problem list, so presume this is not new. Heart Score - Score History: Moderately Suspicious EKG: Non Specific repolarisation Disturbance Age: Greater than 65 Risk Factors: Equal/Greater than 3 risk factor or history of atherosclerotic disease Troponin: 1-3x normal limit HEART Score Total: 7 Attestation Statement - Attestation Attestation: Resident Attestation: I examined this patient and my medical decision making was reviewed with the Resident Physician. I agree with the documented findings, disposition and treatment plan as described except to the extent set forth below. We independently had [id number] contact with the patient. Patient presents for evaluation of chest pain. Patient reports recent cardiac catheter with unstented lesion. Patient with chest pain that feels like previous heart attack. Patient will undergo further evaluation for underlying heart disease. Resting comfortable in bed, regular rate and rhythm, clear to auscultation bilaterally,swelling of lower extremities.
[2019-01-11 18:10] LABS: Basophils % 0.3 %; Eosinophils # 0.1 K/mcL (0.0-0.6); Eosinophils % 2.1 %; Hemoglobin 14.3 g/dL (11.5-15.4); Immature Granulocytes % 0.7 % (0-4); Lymphocytes % 16.4 %; Mean Corpuscular HGB Conc 34.9 g/dL (31.6-35.5); Mean Corpuscular Hemoglobin 27.7 pg (28.0-33.3); Mean Corpuscular Volume 79.5 fL (83.0-100.0); Mean Platelet Volume 10.2 fL (9.4-12.4); Monocytes # 0.7 K/mcL (0.0-1.3); Monocytes % 11.2 %; Platelet Count 220 K/mcL (140-400); Red Blood Count 5.16 M/mcL (3.82-4.97); Red Cell Distribution Width 13.6 % (11.5-14.5); Segmented Neutrophils % 69.3 %
[2019-01-11 18:29] LABS: Calcium 10.3 mg/dL (8.6-10.3); Potassium 3.8 mEq/L (3.5-5.1)
[2019-01-11 18:51] LABS: Troponin I 0.08 ng/mL (< 0.04)
[2019-01-11 18:56] LABS: Prothrombin Time 63.4 Seconds (9.4-12.1)
[2019-01-11 18:57] LABS: INR 5.6
[2019-01-11] MEDS ORDERED: 0.9 % Sodium Chloride 500 ML IVC ONE (19:45)
[2019-01-11 20:55] LABS: Bilirubin,Urine Negative (Negative); Blood,Urine Trace (Negative); Clarity,Urine Cloudy (Clear); Color,Urine Yellow (Yellow); Glucose,Urine (UA) Normal (Normal); Ketones,Urine Negative (Negative); Leukocyte Esterase,Urine Large (Negative); Nitrite,Urine Negative (Negative); PH,Urine 5.5 pH Units (5.0-8.0); Protein,Urine 100 mg/dL (Neg-Trace); Specific Gravity,Urine 1.011 (1.010-1.025); Urobilinogen,Urine Normal (Normal)
[2019-01-11 21:02] LABS: Hyaline Casts,Urine None Seen per lpf (None-Few); Squamous Epithelial Cell,Urine Moderate per lpf (None-Few)
[2019-01-11 21:03] LABS: Bacteria,Urine Many per hpf (None-Few); RBC,Urine 0-3 per hpf (0-3); WBC,Urine TNTC per hpf (0-3)
[2019-01-11 21:08] LABS: Sodium, Urine 49.4 mEq/L
[2019-01-11] MEDS ORDERED: *HR* Morphine 2 MG/ML SYRINGE IVP ONE (21:39)
[2019-01-12 06:36] LABS: Basophils % 0.3 %; Eosinophils # 0.2 K/mcL (0.0-0.6); Hematocrit 37.8 % (35.3-44.9); Hemoglobin 13.1 g/dL (11.5-15.4); Immature Granulocytes % 0.7 % (0-4); Lymphocytes # 1.1 K/mcL (0.6-4.6); Lymphocytes % 18.2 %; Mean Corpuscular HGB Conc 34.7 g/dL (31.6-35.5); Mean Corpuscular Hemoglobin 27.6 pg (28.0-33.3); Mean Corpuscular Volume 79.6 fL (83.0-100.0); Mean Platelet Volume 10.3 fL (9.4-12.4); Monocytes # 0.7 K/mcL (0.0-1.3); Monocytes % 11.2 %; Neutrophils # 4.1 K/mcL (1.6-8.9); Platelet Count 190 K/mcL (140-400); Red Blood Count 4.75 M/mcL (3.82-4.97); Red Cell Distribution Width 13.5 % (11.5-14.5); Segmented Neutrophils % 66.6 %
[2019-01-12 06:46] LABS: INR 5.6; Prothrombin Time 62.7 Seconds (9.4-12.1)
[2019-01-12 07:00] LABS: Albumin 4.3 g/dL (3.5-5.7); Albumin/Globulin Ratio 1.7 (1.1-2.2); Bilirubin,Total 0.6 mg/dL (0.3-1.0); Calcium 9.7 mg/dL (8.6-10.3); Globulin 2.6 g/dL (2.4-3.5); Potassium 2.5 mEq/L (3.5-5.1); Total Protein 6.9 g/dL (6.4-8.9); Troponin I 0.08 ng/mL (< 0.04)
[2019-01-12] MEDS ORDERED: Nitroglycerin 0.4 MG TAB.SUBL SL PRN (07:32)
[2019-01-12] MEDS ORDERED: Naloxone 0.4 MG/ML INJ IVP PRN (07:37)
[2019-01-12] MEDS ORDERED: cefTRIAXone 2,000 MG in 0.9 % Sodium Chloride Mini Bag 100 ML IVPB SCH (08:00)
[2019-01-12 08:24] LABS: Phosphorous 3.1 mg/dL (2.7-4.5)
[2019-01-12] MEDS: Ranolazine 500 MG TAB.ER.12H PO SCH ×2 (08:50→21:16)
[2019-01-12] MEDS: Anastrozole 1 MG TABLET PO SCH (08:50)
[2019-01-12] MEDS: *HR* Amiodarone 200 MG TABLET PO SCH (08:51)
[2019-01-12] MEDS ORDERED: CARVEDILOL 3.125 MG PO SCH (09:00)
[2019-01-12] MEDS ORDERED: Diltiazem CD (24hr) 240 MG CAPSULE PO SCH (09:00)
[2019-01-12] MEDS ORDERED: Spironolactone 25 MG TABLET PO SCH (09:00)
[2019-01-12] MEDS ORDERED: Isosorbide MONOnitrate (24 HR) 60 MG TAB.ER.24H PO SCH (09:00)
--- NOTE | 2019-01-12 09:11 | Nephrology Consult Note ---
Date of Encounter: 01/12/19 Time of Encounter: 08:50 Assessment and Plan (1) FLORES (acute kidney injury) Status: Acute FLORES on CKD stage III. The I/O recordings indicate that she has had 2 wet diapers, and this suggests non-oliguric acute kidney injury. She is typically followed by my colleague Dr. Curry. I have seen her in the past a few years ago when she had an FLORES during an inpatient admission. The urinalysis, urine electrolytes, retroperitoneal ultrasound have all been ordered: Agree. Hypokalemia: I see that she is typically on spironolactone. I agree with replacing, which is already been ordered. Hyponatremia: Improving. Continue to follow a renal protective strategy: Strict I's and O's, daily weights, avoidance of nephrotoxic agents such as NSAIDs, Bactrim, IV contrast; and renal dosing of Rx is recommended. I do not recommend starting renal replacement therapy at this time, and we will closely follow with you. Thank you for consult in the [facility] group. (2) Hypokalemia Status: Acute Likely related to diuretics and has a hx of needing spironolactone. Check Mg and replete. (3) CKD (chronic kidney disease) stage 3, GFR 30-59 ml/min Status: Chronic Baseline CKD stage III; and follows with Dr Curry (4) Anticoagulated on Coumadin Status: Chronic Elevated INR noted (5) HTN (hypertension) Status: Chronic Will monitor Qualifiers: Qualified Code(s): I10 - Essential (primary) hypertension (6) Hyponatremia Status: Resolved Slight and will need to monitor and avoid rapid over-correction. History of Present Illness - Reason for Consult Consult date: 01/12/19 Acute Kidney Injury, Chronic Kidney Disease, hypokalemia Requesting physician: Rosie Edouard - Chief Complaint FLORES on CKD with hypokalemia - History of Present Illness The patient is a very pleasant 73-year-old female who presented with chest pain and the findings of A. fib. She also had worsening renal function, and nephrology was consult it. The patient affirms having increased fatigue, nausea, without vomiting or diarrhea. She did not affirm urination changes such as dysuria. She did not affirm recent fevers or chills. She denied taking excessive NSAIDs. She reported recently having a heart catheter. She has seen both Dr. Curry and Dr. Eckert in the past for chronic kidney disease and urology. She has been taking spironolactone. She has had prior vacations outside of [place] and when missed spironolactone, at according to the notes in e[facility] that I reviewed, and then she developed hypokalemia. Past Med Surg Social Fam HX - Past Medical History Medical history: arthritis, cancer, CHF, coronary artery disease, CVA, diabetes, GERD, hypertension Additional medical history: PACEMAKER. FACTOR V LEIDEN. LEFT-SIDED WEAKINESS Psychiatric history: depression, other - Past Surgical History Surgical History: breast surgery Additional surgical history: portal vein thrombosis,tummy tuck. back surgery. lap band sx. right breast lumpectomy. lymph node removal - Social History Smoking Status: Never smoker Smokeless Tobacco Status: No Alcohol use: none Drug use: none - Family History Father Adopted: No Family Member Ethnicity: Non- Living Status: Cause of : CHF Hx Family Cardiac Disorders: Yes Hx Family Respiratory Disorders: No Hx Family Cancer: No Hx Family GI Disorders: No Hx Family Endocrine Disorder: Yes Hx Family Neuromuscular Disorders: No Hx Family Neurologic Disorders: Yes Hx Family HEENT Disorders: No Hx Family Autoimmune Disorders: Yes Mother Family Member Ethnicity: Non- Living Status: Cause of : CHF Hx Family Cardiac Disorders: Yes Hx Family Respiratory Disorders: No Hx Family Cancer: Yes Hx Family GI Disorders: No Hx Family Endocrine Disorder: Yes Hx Family Neuromuscular Disorders: No Hx Family Neurologic Disorders: No Hx Family HEENT Disorders: No Hx Family Autoimmune Disorders: Yes (RA) Sister Adopted: No Living Status: Still Living Hx Family Cardiac Disorders: Yes Hx Family Respiratory Disorders: No Hx Family Cancer: No Hx Family GI Disorders: No Hx Family Endocrine Disorder: Yes Hx Family Neuromuscular Disorders: No Hx Family Neurologic Disorders: Yes Hx Family HEENT Disorders: No Hx Family Autoimmune Disorders: No Brother Adopted: No Living Status: Still Living Hx Family Cardiac Disorders: Yes Hx Family Respiratory Disorders: No Hx Family Cancer: No Hx Family GI Disorders: No Hx Family Endocrine Disorder: No Hx Family Neuromuscular Disorders: No Hx Family Neurologic Disorders: No Hx Family HEENT Disorders: No Hx Family Autoimmune Disorders: No Medications and Allergies Escitalopram [Lexapro] 20 mg PO DAILY 05/16/15 [History] Rosuvastatin [Crestor] 40 mg PO DAILY 05/16/15 [History] Insulin Glargine,Hum.rec.anlog [Lantus Solostar] 30 unit SQ HS 07/06/16 [History] Nitroglycerin 0.4 mg SL Q5MIN PRN #0 tab.subl 07/10/16 [Rx] Clopidogrel [Plavix] 75 mg PO DAILY #30 tablet 08/15/16 [Rx] traZODone [TraZODone] 50 mg PO HS PRN 03/19/17 [History] Ranolazine [Ranexa] 1,000 mg PO BID 01/03/18 [History] Anastrozole [Arimidex] 1 mg PO DAILY 05/14/18 [History] Isosorbide MONOnitrate (24 HR) [Imdur] 60 mg PO BID 05/14/18 [History] Pantoprazole Sodium [Protonix] 40 mg PO DAILY 05/14/18 [History] metOLazone [Zaroxolyn] 2.5 mg PO 2XW 05/14/18 [History] Carvedilol 3.125 mg PO DAILY 01/11/19 [History] Potassium Chloride [Klor-Con 10] 20 meq PO BID 01/11/19 [History] Spironolactone [Aldactone] 25 mg PO DAILY 01/11/19 [History] Warfarin [Coumadin] 2 mg PO SUMOWETHFRSA 01/11/19 [History] Amiodarone HCl 200 mg PO DAILY 01/12/19 [History] Diltiazem CD (24hr) [Cardizem CD] 120 mg PO DAILY 01/12/19 [History] Docusate Sodium [Dok] 250 mg PO DAILY 01/12/19 [History] Meclizine HCl [Verticalm] 25 mg PO DAILY PRN 01/12/19 [History] Warfarin Sodium 1 mg PO TU 01/12/19 [History] Furosemide [Lasix] 40 mg PO DAILY 30 Days #30 tablet 01/14/19 [Rx] Allergy/AdvReac Type Severity Reaction Status Date / Time phenylbutazone Allergy Rash Verified 05/14/18 14:15 [From Butazolidin] amitriptyline [From Elavil] AdvReac Headache Verified 05/14/18 14:15 codeine AdvReac Headache Verified 05/14/18 14:15 desipramine AdvReac Headache Verified 05/14/18 14:15 lisinopril AdvReac Cough Verified 05/14/18 14:15 meperidine [From Demerol] AdvReac Headache Verified 05/14/18 14:15 nalbuphine AdvReac Headache Verified 05/14/18 14:15 Nortriptyline AdvReac Headache Verified 05/14/18 14:15 tiagabine AdvReac Headache Verified 05/14/18 14:15 Review of Systems All Systems: reviewed and no additional remarkable complaints except as stated Exam - Vital Signs Vital signs: Initial Vital Signs Temp Pulse Resp BP Pulse Ox 97.7 F 72 18 112/74 100 01/11/19 17:18 01/11/19 17:18 01/11/19 17:18 01/11/19 17:18 01/11/19 17:18 Vital Signs - Last 8 Hours Temp Pulse Resp BP Pulse Ox 01/12/19 06:53 97.5 F L 60 16 126/63 98 01/12/19 03:48 97.9 F 60 16 131/77 98 Intake and Output 01/11/19 01/12/19 01/12/19 23:59 07:59 15:59 Intake Total 500 / 500 Balance 500 / 500 Intake: IV Fluids 500 / 500 0.9 % Sodium Chloride 500 ML @ 500 / 500 999 mls/hr IVC .Q31M ONE Rx#: [id number] Other: # Urine Diapers 2 Weight 54.885 kg - General Appearance General appearance: well-developed EENT: ATNC, PERRL, mucous membranes moist Neck: supple Respiratory: clear Cardiology: no edema, rapid rhythm, irregular rhythm, normal S1, normal S2 Gastrointestinal: normoactive bowel sounds, no tenderness, no guarding Integumentary: warm and dry (with pack skin) Neurologic: no focal deficit, no asterixis, alert and oriented x3 Musculoskeletal: no erythema, no cyanosis, no clubbing Psychiatric: mood/affect appropriate, cooperative Results - Lab Results 01/13/19 05:07 01/14/19 18:23 Most recent lab results 01/12/19 05:54 Calcium 9.7 Phosphorus 3.1 Consult Discharge Plan - Plan Instructions: Furosemide (By mouth), Amoxicillin/Clavulanate Potassium (By mouth), Chest Pain (DC) Referrals: Okolie,Glover, MD [Primary Care Provider] - 01/19/19 1:15 pm Prescriptions: Furosemide [Lasix] 40 mg PO DAILY 30 Days #30 tablet
--- NOTE | 2019-01-12 09:32 | Internal Med History&Physical ---
Date of Encounter: 01/12/19 Time of Encounter: 07:00 Internal Medicine - H&P: HPI Chief complaint: chest pain Admitted From: Home Plans for Post Hospital Care: Home History of present illness: Ms. Fischer is a 73 year old female with history of CAD status post stent, atrial fibrillation status post pacemaker, heart failure preserved ejection fraction and insulin-dependent diabetes presented to the emergency department with chest pain. As per patient her pain started suddenly as she was walking to the bathroom it was located in the center of her chest it was 8 out of 10 on severe ED, pressure-like, radiated to her left shoulder. Chest pain occurs when she ambulates and is alleviated with rest. She denies any shortness of breath or palpitations associated with the chest pain. Denies any lower extremity fermín a, PND or orthopnea. Compliant to her medications. As per patient she was recently seen for the similar symptoms and a hospital in [facility] and underwent a heart catheterization and as per patient the cargo services coordinator told her that there is a blockage however it could not be stented. Currently her chest pain has resolved with the morphine that she received in the emergency department, she denies fever, chills, nausea, vomiting, diarrhea, abdominal pain, heat or cold intolerance. Past Med Surg Social Fam HX - Past Medical History Medical history: arthritis, cancer, CHF, coronary artery disease, CVA, diabetes, GERD, hypertension Additional medical history: PACEMAKER. FACTOR V LEIDEN. LEFT-SIDED WEAKINESS Psychiatric history: depression, other - Past Surgical History Surgical History: breast surgery Additional surgical history: portal vein thrombosis,tummy tuck. back surgery. lap band sx. right breast lumpectomy. lymph node removal - Social History Smoking Status: Never smoker Smokeless Tobacco Status: No Alcohol use: none Drug use: none - Family History Father Adopted: No Family Member Ethnicity: Non- Living Status: Cause of : CHF Hx Family Cardiac Disorders: Yes Hx Family Respiratory Disorders: No Hx Family Cancer: No Hx Family GI Disorders: No Hx Family Endocrine Disorder: Yes Hx Family Neuromuscular Disorders: No Hx Family Neurologic Disorders: Yes Hx Family HEENT Disorders: No Hx Family Autoimmune Disorders: Yes Mother Family Member Ethnicity: Non- Living Status: Cause of : CHF Hx Family Cardiac Disorders: Yes Hx Family Respiratory Disorders: No Hx Family Cancer: Yes Hx Family GI Disorders: No Hx Family Endocrine Disorder: Yes Hx Family Neuromuscular Disorders: No Hx Family Neurologic Disorders: No Hx Family HEENT Disorders: No Hx Family Autoimmune Disorders: Yes (RA) Sister Adopted: No Living Status: Still Living Hx Family Cardiac Disorders: Yes Hx Family Respiratory Disorders: No Hx Family Cancer: No Hx Family GI Disorders: No Hx Family Endocrine Disorder: Yes Hx Family Neuromuscular Disorders: No Hx Family Neurologic Disorders: Yes Hx Family HEENT Disorders: No Hx Family Autoimmune Disorders: No Brother Adopted: No Living Status: Still Living Hx Family Cardiac Disorders: Yes Hx Family Respiratory Disorders: No Hx Family Cancer: No Hx Family GI Disorders: No Hx Family Endocrine Disorder: No Hx Family Neuromuscular Disorders: No Hx Family Neurologic Disorders: No Hx Family HEENT Disorders: No Hx Family Autoimmune Disorders: No Internal Medicine - H&P: Meds Escitalopram [Lexapro] 20 mg PO DAILY 05/16/15 [History] Rosuvastatin [Crestor] 40 mg PO DAILY 05/16/15 [History] Insulin Glargine,Hum.rec.anlog [Lantus Solostar] 30 unit SQ HS 07/06/16 [History] Nitroglycerin 0.4 mg SL Q5MIN PRN #0 tab.subl 07/10/16 [Rx] Clopidogrel [Plavix] 75 mg PO DAILY #30 tablet 08/15/16 [Rx] traZODone [TraZODone] 50 mg PO HS PRN 03/19/17 [History] Furosemide [Lasix] 60 mg PO BID 09/13/17 [History] Ranolazine [Ranexa] 1,000 mg PO BID 01/03/18 [History] Anastrozole [Arimidex] 1 mg PO DAILY 05/14/18 [History] Isosorbide MONOnitrate (24 HR) [Imdur] 60 mg PO BID 05/14/18 [History] Pantoprazole Sodium [Protonix] 40 mg PO DAILY 05/14/18 [History] metOLazone [Zaroxolyn] 2.5 mg PO AD 05/14/18 [History] Carvedilol 3.125 mg PO BIDWM 01/11/19 [History] Potassium Chloride [Klor-Con 10] 20 meq PO BID 01/11/19 [History] Spironolactone [Aldactone] 25 mg PO DAILY 01/11/19 [History] Warfarin [Coumadin] 2 mg PO SUMOWETHFRSA 01/11/19 [History] Amiodarone HCl 200 mg PO DAILY 01/12/19 [History] Diltiazem CD (24hr) [Cardizem CD] 120 mg PO DAILY 01/12/19 [History] Lactulose 10 gm PO Q72H PRN 01/12/19 [History] Warfarin Sodium 1 mg PO TU 01/12/19 [History] Allergy/AdvReac Type Severity Reaction Status Date / Time phenylbutazone Allergy Rash Verified 05/14/18 14:15 [From Butazolidin] amitriptyline [From Elavil] AdvReac Headache Verified 05/14/18 14:15 codeine AdvReac Headache Verified 05/14/18 14:15 desipramine AdvReac Headache Verified 05/14/18 14:15 lisinopril AdvReac Cough Verified 05/14/18 14:15 meperidine [From Demerol] AdvReac Headache Verified 05/14/18 14:15 nalbuphine AdvReac Headache Verified 05/14/18 14:15 Nortriptyline AdvReac Headache Verified 05/14/18 14:15 tiagabine AdvReac Headache Verified 05/14/18 14:15 All Systems PM: A 10-system review of systems was performed and is negative for pertinent findings except as documented above in the HPI. - Constitutional Vitals: Temp Pulse Resp BP Pulse Ox 97.5 F L 60 16 126/63 98 01/12/19 06:53 01/12/19 06:53 01/12/19 06:53 01/12/19 06:53 01/12/19 06:53 Exam: General: Patient is alert, oriented, no acute distress, laying flat in bed Head: atraumatic, normocephalic, Eye: normal appearance, PERRL, no scleral icterus, no conjunctival injection ENT: mucous membranes moist, normal external ear exam Neck: normal inspection, trachea midline, full ROM, no carotid bruits Chest: normal inspection, symmetric chest rise Respiratory: Good respiratory effort. Bilateral breath sounds are clear without wheezing, crackles, or rhonchi. Cardiovascular: Device in the left chest, Regular rate and rhythm. s1 and s2 No clicks, rubs, gallops Abdomen: Bowel sounds present normoactive x-4 quadrants. Abdomen is soft, nondistended. no Epigastric tenderness. No guarding or rebound. No organomegaly noted, obese musculoskeletal: Spontaneously moving all extremities. no edema, no calf tenderness Skin: warm, dry, intact. Neuro: Alert and oriented x4. No focal deficit Psych: Patient's affect is normal Internal Med - H&P Results - Labs CBC & Chem 7: 01/12/19 05:54 01/12/19 05:54 Labs: Short CBC 01/11/19 01/12/19 Range/Units 17:47 05:54 WBC 5.8 6.1 (4.3-11.1) K/mcL Hgb 14.3 13.1 (11.5-15.4) g/dL Hct 41.0 37.8 (35.3-44.9) % Plt Count 220 190 (140-400) K/mcL Neutrophils # 4.0 4.1 (1.6-8.9) K/mcL BMP 01/11/19 01/12/19 17:47 05:54 Sodium 131 L 137 Potassium 3.8 2.5 L* D Chloride 90 L 100 Carbon Dioxide 28 26 BUN 93 H 83 H Creatinine 3.02 H 2.46 H Glucose 284 H 178 H Calcium 10.3 9.7 Cardiac Enzymes 01/11/19 01/12/19 Range/Units 17:47 05:54 Troponin I 0.08 H* 0.08 H* (< 0.04) ng/mL Liver Function 01/12/19 Range/Units 05:54 Total Bilirubin 0.6 (0.3-1.0) mg/dL AST 29 (13-39) Units/L ALT 42 (7-52) Units/L Alkaline Phosphatase 47 (34-104) Units/L Albumin 4.3 (3.5-5.7) g/dL Urine 01/11/19 Range/Units 20:38 Urine Color Yellow (Yellow) Urine Clarity Cloudy A (Clear) Urine pH 5.5 (5.0-8.0) pH Units Ur Specific [place] 1.011 (1.010-1.025) Urine Protein 100 H (Neg-Trace) mg/dL Urine Glucose (UA) Normal (Normal) mg/dL - EKG Data -: EKG Interpreted by Myself (LBBB, LAD, QTC of 506.) - EKG Data Prior EKG available for review: yes When compared to previous EKG: there is no significant change - Impressions ITS Impressions Chest X-Ray 01/11/19 17:21 IMPRESSION: No acute process. D/ / Coy Schultz MD / Coy Schultz MD Interpreting Provider: Coy Schultz MD - Assessment and Plan (1) Chest pain, rule out acute myocardial infarction Current Visit: Yes Status: Acute Assessment and plan: Chest pain rule out ACS Patient was recently admitted to a hospital in [facility] with similar complaints and underwent a heart catheterization and as per patient there was blockage that no intervention could be done for. Troponin 0.082 Continue with home Plavix, bb, ranexa, rosuvastatin, IMDUR NTG Q5M PRN TTE cardiology consulted will follow recommendations TSH and Lipid panel in AM Telemetry monitoring Obtain records from [facility]. (2) Acute renal failure superimposed on stage 3 chronic kidney disease Current Visit: Yes Status: Acute Assessment and plan: Most likely secondary to aggressive diuretic therapy will rule out other etiologies Renal ultrasound Urine electrolytes We will hold off the diuretics for now Nephrology was consulted will follow recommendations Strict intake and output, daily weights avoid nephrotoxic medications Qualifiers: Acute renal failure type: unspecified Qualified Code(s): N17.9 - Acute kidney failure, unspecified; N18.3 - Chronic kidney disease, stage 3 (moderate) (3) Supratherapeutic INR Current Visit: No Status: Acute Assessment and plan: INR 5.6 No signs of bleeding will hold Coumadin Follow INR in the morning (4) Atrial fibrillation Current Visit: No Status: Chronic Assessment and plan: Status post pacemaker Continue with home medications if not contraindicated Qualifiers: Atrial fibrillation type: paroxysmal Qualified Code(s): I48.0 - Paroxysmal atrial fibrillation (5) Diastolic heart failure Current Visit: No Status: Chronic Assessment and plan: Has history of chronic diastolic heart failure currently euvolemic Strict intake and output Daily weights Fluid restriction Hold off Lasix since aldactone for now we will consider resuming once renal functions have improved. TTE 04/2018 EF 50% with basal inferior hypokinesis. Mild AR, MR and TR. Moderate phtn Qualifiers: Heart failure chronicity: chronic Qualified Code(s): I50.32 - Chronic diastolic (congestive) heart failure (6) IDDM (insulin dependent diabetes mellitus) Current Visit: No Status: Chronic Assessment and plan: Continue home long-acting insulin Insulin sliding scale and adjust as per fingersticks A1c in a.m. (7) Acute cystitis with hematuria Current Visit: Yes Status: Acute Assessment and plan: Started on ceftriaxone Follow urine cultures (8) Hypokalemia Current Visit: Yes Status: Acute Assessment and plan: refused IV potassium replaced orally follow in 4 hours magnesium ordered (9) DVT prophylaxis Current Visit: Yes Status: Acute Assessment and plan: Has supratherapeutic INR SCDs - Time Spent With Patient Total time spent is greater than 50% in coordination of care (as documented) at patient's floor/unit and/or counseling patient:
[2019-01-12] MEDS: Isosorbide MONOnitrate (24 HR) 60 MG TAB.ER.24H PO SCH ×2 (09:37→21:16)
[2019-01-12] MEDS ORDERED: Dextrose Gel 15 GM/37.5 ML TUBE PO PRN ×2 (09:48)
[2019-01-12] MEDS ORDERED: D5% in Water 1,000 ML IVC PRN (09:48)
[2019-01-12] MEDS ORDERED: *HR* Dextrose 50 % in Water (Syg) 50 ML SYRINGE IVP PRN (09:48)
--- NOTE | 2019-01-12 09:53 | Electrocardiograph Report ---
[address] [address] Test Date: 2019-01-11 Pat Name: Miriam Fischer Department: 104 Room: 2A15 Gender: F Roller Operator: : [id number] Requested By: Erwin Calvin Order Number: [id number] Reading MD: Miller Hernandez Measurements Intervals [place] Rate: 61 P: 245 NE: 306 QRS: -57 QRSD: 186 T: 141 QT: 504 QTc: 506 Interpretive Statements ELECTRONIC ATRIAL PACEMAKER MARKED LEFT AXIS DEVIATION LEFT BUNDLE BRANCH BLOCK Electronically Signed On 01-12-2019 9:51:32 EDT by Miller Henrandez
--- NOTE | 2019-01-12 09:57 | Cardiology Consult Note ---
<Magno Laughlin R - Last Filed: 01/12/19 09:53> Date of Encounter: 01/12/19 Time of Encounter: 09:53 Assessment and Plan (1) Chest pain Current Visit: No Status: Resolved Presented to the ED with CP that started suddenly at rest, midsternal pressure, radiated to her left shoulder and neck, associated shortness of breath, relieved with morphine, no recurrence. Per pt, she was recently seen for the similar symptoms in [facility] at [facility] and underwent LHC. Pt reports a blockage that could not be stented due to it being a small vessel. Will request records. Troponins 0.08 x 2 in setting of FLORES on CKD, suspect demand ischemia. Will order TTE to evaluate structure and function. TTE 04/2018 EF 50% with basal inferior h ypokinesis. Mild AR, MR and TR. Moderate phtn. Continue Plavix, Statin, BB, nitrates. Will discuss and review with Dr. Hernandez. Qualifiers: Chest pain type: chest pain due to myocardial ischemia Ischemic chest pain type: unspecified angina pectoris type Qualified Code(s): I25.9 - Chronic ischemic heart disease, unspecified (2) Elevated troponin Current Visit: No Status: Chronic Troponin 0.08, 0.08 in setting of FLORES on CKD. Suspect demand ischemia, nondiagnostic for ACS. No cardiac rehab warranted. (3) CAD (coronary artery disease) Current Visit: No Status: Chronic As above, hx of CAD and PCI. LHC per pt ~3 weeks ago with small vessel disease and no intervention. Requesting records. Continue Statin, Plavix, BB, Nitrates. No ASA d/t being on Plavix and Coumadin. Qualifiers: Coronary Disease-Associated Artery/Lesion type: [place] artery [place] vs. transplanted heart: [place] heart Associated angina: with unspecified angina Qualified Code(s): I25.119 - Atherosclerotic heart disease of [place] coronary artery with unspecified angina pectoris (4) Atrial fibrillation Current Visit: No Status: Chronic Known hx of PAF. On Amiodarone and BB, currently paced. Anticoagulated on Coumadin. INR supratherapeutic 5.6, currently on hold. Denies active bleeding. Reports management outpt per [facility]. Qualifiers: Atrial fibrillation type: paroxysmal Qualified Code(s): I48.0 - Paroxysmal atrial fibrillation Discussion w patient/family: The assessment and plan as outlined above was discussed with the patient and/or family members who expressed understanding and agreement. All questions were answered. Thank you for involving us in the care of your patient. Please call with any questions. I will discuss all the above with Dr. Hernandez and make changes as necessary. History of Present Illness Consult date: 01/12/19 Consult reason: elevated troponin, chest pain Chief complaint: chest pain History of present illness: Ms. Fischer is a 73 year old female with PMH of CAD s/p PCI, A-Fib anticoagulated on Coumadin, tachy mikael syndrome s/p PPM, diastolic CHF and insulin-dependent diabetes presented to the ED with chest pain that started suddenly at rest in the center of her chest it was 8 out of 10 on severe ED, pressure-like, radiated to her left shoulder and neck, associated shortness of breath. Per pt, she was recently seen for the similar symptoms in [facility] and underwent LHC. Per patient the qa analyst told her that there is a blockage however it could not be stented due to it being a small vessel. Chest pain resolved with morphine in ED. Found to have FLORES on CKD. Troponin 0.08, 0.08. INR 5.6. Past Med Surg Social Fam HX - Past Medical History Medical history: arthritis, atrial fibrillation, cancer, CHF, coronary artery disease, CVA, diabetes, GERD, hypertension Additional medical history: PACEMAKER. FACTOR V LEIDEN. LEFT-SIDED WEAKINESS Psychiatric history: depression, other - Past Surgical History Surgical History: breast surgery Additional surgical history: portal vein thrombosis,tummy tuck. back surgery. lap band sx. right breast lumpectomy. lymph node removal - Social History Smoking Status: Never smoker Smokeless Tobacco Status: No Alcohol use: none Drug use: none - Family History Father Adopted: No Family Member Ethnicity: Non- Living Status: Cause of : CHF Hx Family Cardiac Disorders: Yes Hx Family Respiratory Disorders: No Hx Family Cancer: No Hx Family GI Disorders: No Hx Family Endocrine Disorder: Yes Hx Family Neuromuscular Disorders: No Hx Family Neurologic Disorders: Yes Hx Family HEENT Disorders: No Hx Family Autoimmune Disorders: Yes Mother Family Member Ethnicity: Non- Living Status: Cause of : CHF Hx Family Cardiac Disorders: Yes Hx Family Respiratory Disorders: No Hx Family Cancer: Yes Hx Family GI Disorders: No Hx Family Endocrine Disorder: Yes Hx Family Neuromuscular Disorders: No Hx Family Neurologic Disorders: No Hx Family HEENT Disorders: No Hx Family Autoimmune Disorders: Yes (RA) Sister Adopted: No Living Status: Still Living Hx Family Cardiac Disorders: Yes Hx Family Respiratory Disorders: No Hx Family Cancer: No Hx Family GI Disorders: No Hx Family Endocrine Disorder: Yes Hx Family Neuromuscular Disorders: No Hx Family Neurologic Disorders: Yes Hx Family HEENT Disorders: No Hx Family Autoimmune Disorders: No Brother Adopted: No Living Status: Still Living Hx Family Cardiac Disorders: Yes Hx Family Respiratory Disorders: No Hx Family Cancer: No Hx Family GI Disorders: No Hx Family Endocrine Disorder: No Hx Family Neuromuscular Disorders: No Hx Family Neurologic Disorders: No Hx Family HEENT Disorders: No Hx Family Autoimmune Disorders: No Medications and Allergies Escitalopram [Lexapro] 20 mg PO DAILY 05/16/15 [History] Rosuvastatin [Crestor] 40 mg PO DAILY 05/16/15 [History] Insulin Glargine,Hum.rec.anlog [Lantus Solostar] 30 unit SQ HS 07/06/16 [History] Nitroglycerin 0.4 mg SL Q5MIN PRN #0 tab.subl 07/10/16 [Rx] Clopidogrel [Plavix] 75 mg PO DAILY #30 tablet 08/15/16 [Rx] traZODone [TraZODone] 50 mg PO HS PRN 03/19/17 [History] Furosemide [Lasix] 60 mg PO BID 09/13/17 [History] Ranolazine [Ranexa] 1,000 mg PO BID 01/03/18 [History] Anastrozole [Arimidex] 1 mg PO DAILY 05/14/18 [History] Isosorbide MONOnitrate (24 HR) [Imdur] 60 mg PO BID 05/14/18 [History] Pantoprazole Sodium [Protonix] 40 mg PO DAILY 05/14/18 [History] metOLazone [Zaroxolyn] 2.5 mg PO 2XW 05/14/18 [History] Carvedilol 3.125 mg PO DAILY 01/11/19 [History] Potassium Chloride [Klor-Con 10] 20 meq PO BID 01/11/19 [History] Spironolactone [Aldactone] 25 mg PO DAILY 01/11/19 [History] Warfarin [Coumadin] 2 mg PO SUMOWETHFRSA 01/11/19 [History] Amiodarone HCl 200 mg PO DAILY 01/12/19 [History] Diltiazem CD (24hr) [Cardizem CD] 120 mg PO DAILY 01/12/19 [History] Docusate Sodium [Dok] 250 mg PO DAILY 01/12/19 [History] Meclizine HCl [Verticalm] 25 mg PO DAILY PRN 01/12/19 [History] Warfarin Sodium 1 mg PO TU 01/12/19 [History] Allergy/AdvReac Type Severity Reaction Status Date / Time phenylbutazone Allergy Rash Verified 05/14/18 14:15 [From Butazolidin] amitriptyline [From Elavil] AdvReac Headache Verified 05/14/18 14:15 codeine AdvReac Headache Verified 05/14/18 14:15 desipramine AdvReac Headache Verified 05/14/18 14:15 lisinopril AdvReac Cough Verified 05/14/18 14:15 meperidine [From Demerol] AdvReac Headache Verified 05/14/18 14:15 nalbuphine AdvReac Headache Verified 05/14/18 14:15 Nortriptyline AdvReac Headache Verified 05/14/18 14:15 tiagabine AdvReac Headache Verified 05/14/18 14:15 All Systems Review: The remainder of the systems were reviewed and are negative - Cardiovascular Cardiovascular: as per HPI, chest pain at rest, dyspnea at rest, dyspnea on exertion, radiating jaw, neck or arm pain - Respiratory Respiratory: dyspnea Physical Examination Vital Signs, Last 4 Hours Temp Pulse Resp BP Pulse Ox 01/12/19 06:53 97.5 F L 60 16 126/63 98 Vital Signs Temp Pulse Resp BP Pulse Ox 01/12/19 06:53 97.5 F L 60 16 126/63 98 01/12/19 03:48 97.9 F 60 16 131/77 98 01/12/19 00:05 97.6 F 63 16 141/73 100 01/11/19 22:35 16 111/59 01/11/19 20:40 61 103/80 01/11/19 19:31 60 16 120/50 99 01/11/19 17:18 97.7 F 72 18 112/74 100 Intake and Output 01/11/19 01/12/19 01/12/19 23:59 07:59 15:59 Intake Total 500 / 500 Balance 500 / 500 Intake: IV Fluids 500 / 500 0.9 % Sodium Chloride 500 ML @ 500 / 500 999 mls/hr IVC .Q31M ONE Rx#: [id number] Other: # Urine Diapers 2 Weight 54.885 kg General: Conversant, No Apparent Distress HEENT: Atraumatic, Normocephaly, Mucus Membranes Moist Neck: No JVD, Normal carotid pulses Cardiac: Reg Rate and Rhythm, Normal S1 and S2, No Murmur Lungs: Normal Breath Sounds, No Wheeze, Rales, Rhonchi Neuro: Alert and responsive, No focal deficits noted Abdomen: Soft, Non-Tender Skin: No rashes noted on visualized skin Musculoskeletal: No Chest Wall Tenderness Extremities: No Clubbing, No Cyanosis, No Edema, Normal Pulses Results 01/12/19 05:54 01/12/19 05:54 Lab Results 01/11/19 01/11/19 01/11/19 17:47 17:47 17:47 WBC 5.8 Hgb 14.3 Hct 41.0 Plt Count 220 INR 5.6 H* APTT 48.0 H Sodium 131 L Potassium 3.8 Chloride 90 L Carbon Dioxide 28 BUN 93 H Creatinine 3.02 H Glucose 284 H Calcium 10.3 Total Bilirubin AST ALT Alkaline Phosphatase Troponin I 0.08 H* B-Natriuretic Peptide 01/11/19 01/12/19 01/12/19 17:47 05:54 05:54 WBC 6.1 Hgb 13.1 Hct 37.8 Plt Count 190 INR 5.6 H* APTT Sodium Potassium Chloride Carbon Dioxide BUN Creatinine Glucose Calcium Total Bilirubin AST ALT Alkaline Phosphatase Troponin I B-Natriuretic Peptide 187 H 01/12/19 05:54 WBC Hgb Hct Plt Count INR APTT Sodium 137 Potassium 2.5 L* D Chloride 100 Carbon Dioxide 26 BUN 83 H Creatinine 2.46 H Glucose 178 H Calcium 9.7 Total Bilirubin 0.6 AST 29 ALT 42 Alkaline Phosphatase 47 Troponin I 0.08 H* B-Natriuretic Peptide Short CBC 01/12/19 01/11/19 Range/Units 05:54 17:47 WBC 6.1 5.8 (4.3-11.1) K/mcL Hgb 13.1 14.3 (11.5-15.4) g/dL Hct 37.8 41.0 (35.3-44.9) % Plt Count 190 220 (140-400) K/mcL Neutrophils # 4.1 4.0 (1.6-8.9) K/mcL BMP 01/12/19 01/11/19 Range/Units 05:54 17:47 Sodium 137 131 L (136-145) mEq/L Potassium 2.5 L* D 3.8 (3.5-5.1) mEq/L Chloride 100 90 L (98-107) mEq/L Carbon Dioxide 26 28 (23-29) mEq/L BUN 83 H 93 H (8-23) mg/dL Creatinine 2.46 H 3.02 H (0.60-1.20) mg/dL Glucose 178 H 284 H (70-105) mg/dL Calcium 9.7 10.3 (8.6-10.3) mg/dL Cardiac Enzymes 01/12/19 01/11/19 Range/Units 05:54 17:47 Troponin I 0.08 H* 0.08 H* (< 0.04) ng/mL Liver Function 01/12/19 Range/Units 05:54 Total Bilirubin 0.6 (0.3-1.0) mg/dL AST 29 (13-39) Units/L ALT 42 (7-52) Units/L Alkaline Phosphatase 47 (34-104) Units/L Albumin 4.3 (3.5-5.7) g/dL Urine 01/11/19 Range/Units 20:38 Urine Color Yellow (Yellow) Urine Clarity Cloudy A (Clear) Urine pH 5.5 (5.0-8.0) pH Units Ur Specific [place] 1.011 (1.010-1.025) Urine Protein 100 H (Neg-Trace) mg/dL Urine Glucose (UA) Normal (Normal) mg/dL Impressions Chest X-Ray 01/11/19 17:21 IMPRESSION: No acute process. D/ / Coy Schultz MD / Coy Schultz MD Interpreting Provider: Coy Schultz MD Active Medications Amiodarone HCl (Cordarone) 200 mg PO DAILY [facility] Stop: 07/14/19 09:01 Last Admin: 01/12/19 08:51 Dose: 200 mg Documented by: Anastrozole (Arimidex) 1 mg PO DAILY [facility] Stop: 07/14/19 09:01 Last Admin: 01/12/19 08:50 Dose: 1 mg Documented by: Carvedilol (Coreg) 3.125 mg PO BIDWM [facility] Stop: 07/14/19 08:01 Last Admin: 01/12/19 08:51 Dose: 3.125 mg Documented by: Clopidogrel Bisulfate (Plavix) 75 mg PO DAILY [facility] Stop: 07/14/19 09:01 Last Admin: 01/12/19 08:50 Dose: 75 mg Documented by: Dextrose/Water (Dextrose 50% (Syg)) 25 ml IVP AD PRN PRN Reason: Hypoglycemia Stop: 07/14/19 09:49 Diltiazem HCl (Cardizem Cd) 120 mg PO DAILY [facility] Stop: 07/15/19 09:01 Docusate Sodium (Colace) 100 mg PO DAILY PRN; Protocol PRN Reason: Constipation Stop: 07/14/19 07:33 Escitalopram Oxalate (Lexapro) 20 mg PO QAM [facility] Stop: 07/14/19 09:01 Last Admin: 01/12/19 08:50 Dose: 20 mg Documented by: Glucagon (Glucagen) 1 mg IM ONCE PRN PRN Reason: Hypoglycemia Stop: 07/14/19 09:49 Glucose (Gluctose) 15 gm PO ONCE PRN PRN Reason: Hypoglycemia Stop: 07/14/19 09:49 Glucose (Gluctose) 30 gm PO ONCE PRN PRN Reason: Hypoglycemia Stop: 07/14/19 09:49 Potassium Chloride (Potassium Chloride 10 Meq/100ml) 10 meq in 100 mls @ 100 mls/hr IVPB Q1H [facility] Stop: 01/12/19 11:44 Last Admin: 01/12/19 08:47 Dose: Not Given Documented by: Ceftriaxone Sodium 2,000 mg/ (Sterile Water) 20 mls @ 600 mls/hr IVP Q24H [facility] Stop: 07/14/19 09:01 Dextrose (Dextrose 5%) 1,000 mls @ 100 mls/hr IVC .Q10H PRN PRN Reason: HYPOGLYCEMIA Stop: 07/14/19 09:49 Insulin Detemir (Levemir) 40 unit SQ HS [facility] Stop: 07/14/19 21:01 Insulin Human Lispro (Humalog) 0 units SQ HS [facility]; Protocol Stop: 07/14/19 21:01 Insulin Human Lispro (Humalog) 0 units SQ TIDAC [facility]; Protocol Stop: 07/14/19 11:31 Isosorbide Mononitrate (Imdur) 60 mg PO BID [facility] Stop: 07/14/19 09:01 Last Admin: 01/12/19 09:37 Dose: 60 mg Documented by: Magnesium Citrate (Citroma) 150 ml PO DAILY PRN PRN Reason: Constipation Stop: 07/14/19 07:33 Naloxone HCl (Narcan) 0.4 mg IVP Q2MPRN PRN PRN Reason: SEE COMMENTS Stop: 07/14/19 07:38 Nitroglycerin (Nitroglycerin) 0.4 mg SL Q5MIN PRN PRN Reason: Chest Pain Stop: 07/14/19 07:33 Omeprazole (Prilosec) 20 mg PO DAILY [facility] Stop: 07/14/19 09:01 Last Admin: 01/12/19 08:51 Dose: 20 mg Documented by: Ranolazine (Ranexa) 1,000 mg PO BID [facility] Stop: 07/14/19 09:01 Last Admin: 01/12/19 08:50 Dose: 1,000 mg Documented by: Rosuvastatin Calcium (Crestor) 40 mg PO HS [facility] Stop: 07/14/19 21:01 Trazodone HCl (Trazodone) 50 mg PO HS PRN PRN Reason: Sleep Stop: 07/14/19 07:33 - Imaging and Cardiology Echo: report reviewed - EKG Interpretation EKG results cardiology: personally reviewed (paced, LBBB) Consult Discharge Plan - Plan Referrals: Adalberto Quijano MD [Primary Care Provider] - < - Last Filed: 01/12/19 16:44> Date of Encounter: 01/12/19 - Attending Attestation I have personally performed a face to face evaluation on this patient. I have reviewed and agree with the documented findings and care plan as documented by the [employer]. History and Exam by me shows: 73 y/o pleasant female with history of CAD, A. fib on Coumadin, tachybrady cardia syndrome status post pacemaker, admitted with atypical chest pain, and a supratherapeutic INR. Recent cardiac catheterization- awaiting the reports for review. Echo shows preserved ejection fraction. Continue aspirin, Plavix, beta jocelyne, Imdur, moderate intensity statin. Hold Coumadin Thanks, Miller Hernandez MD FAC Assessment and Plan Discussion w patient/family: The assessment and plan as outlined above was discussed with the patient and/or family members who expressed understanding and agreement. All questions were answered. Thank you for involving us in the care of your patient. Please call with any questions. History of Present Illness History of present illness: Ms. Fischer is a 73 year old female All Systems Review: The remainder of the systems were reviewed and are negative Physical Examination Vital Signs, Last 4 Hours Temp Pulse Resp BP Pulse Ox 01/12/19 16:04 97.9 F 60 16 112/59 97 Results 01/12/19 05:54 01/12/19 11:18 Lab Results 01/11/19 01/11/19 01/11/19 17:47 17:47 17:47 WBC 5.8 Hgb 14.3 Hct 41.0 Plt Count 220 INR 5.6 H* APTT 48.0 H Sodium 131 L Potassium 3.8 Chloride 90 L Carbon Dioxide 28 BUN 93 H Creatinine 3.02 H Glucose 284 H Calcium 10.3 Magnesium Total Bilirubin AST ALT Alkaline Phosphatase Troponin I 0.08 H* B-Natriuretic Peptide 01/11/19 01/12/19 01/12/19 17:47 05:54 05:54 WBC 6.1 Hgb 13.1 Hct 37.8 Plt Count 190 INR 5.6 H* APTT Sodium Potassium Chloride Carbon Dioxide BUN Creatinine Glucose Calcium Magnesium Total Bilirubin AST ALT Alkaline Phosphatase Troponin I B-Natriuretic Peptide 187 H 01/12/19 01/12/19 01/12/19 05:54 11:18 11:18 WBC Hgb Hct Plt Count INR APTT Sodium 137 135 L Potassium 2.5 L* D 2.9 L Chloride 100 99 Carbon Dioxide 26 28 BUN 83 H 75 H Creatinine 2.46 H 2.39 H Glucose 178 H 285 H Calcium 9.7 9.3 Magnesium 2.1 Total Bilirubin 0.6 AST 29 ALT 42 Alkaline Phosphatase 47 Troponin I 0.08 H* 0.07 H* B-Natriuretic Peptide
[2019-01-12 10:07] LABS: Magnesium 2.1 mg/dL (1.6-2.6)
[2019-01-12] MEDS ORDERED: Water for inj. (sterile) 20 ML 20 ML IV ONE (11:04)
[2019-01-12] MEDS: cefTRIAXone 2,000 MG in Water for inj. (sterile) 20 ML 20 ML IVP SCH (11:07)
[2019-01-12] MEDS: Insulin LISPRO 300 UNITS/3 ML VIAL SQ SCH ×3 (11:08→21:16)
[2019-01-12 11:53] LABS: Calcium 9.3 mg/dL (8.6-10.3); Potassium 2.9 mEq/L (3.5-5.1)
[2019-01-12 15:03] LABS: Potassium,Urine 37.4 mEq/L; Sodium, Urine 63.4 mEq/L
[2019-01-12] MEDS: Insulin DETEMIR 100 UNIT/ML X5UNITS SQ SCH (21:16)
[2019-01-13] MEDS ORDERED: Melatonin 3 MG TABLET PO ONE (03:56)
[2019-01-13 05:35] LABS: Estimated Average Glucose 140 mg/dl; Hemoglobin A1C 6.5 %
[2019-01-13 05:36] LABS: Hematocrit 37.5 % (35.3-44.9); Hemoglobin 12.8 g/dL (11.5-15.4); Mean Corpuscular HGB Conc 34.1 g/dL (31.6-35.5); Mean Corpuscular Hemoglobin 27.4 pg (28.0-33.3); Mean Corpuscular Volume 80.3 fL (83.0-100.0); Mean Platelet Volume 10.1 fL (9.4-12.4); Platelet Count 175 K/mcL (140-400); Red Blood Count 4.67 M/mcL (3.82-4.97); Red Cell Distribution Width 13.7 % (11.5-14.5)
[2019-01-13 05:48] LABS: Albumin 4.2 g/dL (3.5-5.7); Albumin/Globulin Ratio 1.7 (1.1-2.2); Bilirubin,Total 0.4 mg/dL (0.3-1.0); Calcium 9.3 mg/dL (8.6-10.3); Chol/HDL Ratio 3.6 (0-4.9); Globulin 2.5 g/dL (2.4-3.5); Magnesium 2.1 mg/dL (1.6-2.6); Potassium 3.1 mEq/L (3.5-5.1); Total Protein 6.7 g/dL (6.4-8.9)
[2019-01-13 05:58] LABS: INR 4.5; Prothrombin Time 50.5 Seconds (9.4-12.1)
[2019-01-13 06:00] LABS: Thyroid Stimulating Hormone 6.945 mcIU/mL (0.340-5.600)
[2019-01-13] MEDS: Insulin LISPRO 300 UNITS/3 ML VIAL SQ SCH ×4 (08:19→20:38)
[2019-01-13] MEDS: Anastrozole 1 MG TABLET PO SCH (08:21)
[2019-01-13] MEDS: Ranolazine 500 MG TAB.ER.12H PO SCH ×2 (08:21→20:36)
[2019-01-13] MEDS: *HR* Amiodarone 200 MG TABLET PO SCH (08:22)
[2019-01-13] MEDS: cefTRIAXone 2,000 MG in Water for inj. (sterile) 20 ML 20 ML IVP SCH (08:22)
[2019-01-13] MEDS: Diltiazem CD (24hr) 120 MG CAPSULE PO SCH (08:42)
[2019-01-13] MEDS: Isosorbide MONOnitrate (24 HR) 60 MG TAB.ER.24H PO SCH ×2 (08:43→20:36)
[2019-01-13] MEDS: Ondansetron 4 MG/2 ML VIAL IVP PRN (10:01)
--- NOTE | 2019-01-13 12:47 | Cardiology Progress Note ---
Date of Encounter: 01/13/19 Time of Encounter: 11:00 Assessment and Plan (1) Chest pain Current Visit: No Status: Resolved Per cardiology: -Presented to the ED with CP that started suddenly at rest, midsternal pressure, radiated to her left shoulder and neck, associated shortness of breath, relieved with morphine, no recurrence. Remains chest pain free. -Per pt, she was recently seen for the similar symptoms in [facility] at [facility] and underwent LHC. Pt reports a blockage that could not be stented due to it being a small vessel. Will request records. -Troponins 0.08 x 2, 0.07 x2 in setting of FLORES on CKD, suspect demand ischemia. -TTE with LVEF 50-55%, asymmetric basal hypertrophy, no LVOT, moderate diastolic dysfunction, mild AR, mild MR, no wall motion abnormalities noted. TTE 04/2018 EF 50% with basal inferior hypokinesis. Mild AR, MR and TR. Moderate phtn. -On plavix, statin, BB, imdur, ranexa. Not on asa due to need for coumadin for a.fib. -With preserved LVEF and no recurrence of chest pain, cardiology will sign off. Will arrange outpatient follow up. Qualifiers: Chest pain type: chest pain due to myocardial ischemia Ischemic chest pain type: unspecified angina pectoris type Qualified Code(s): I25.9 - Chronic ischemic heart disease, unspecified (2) Elevated troponin Current Visit: No Status: Chronic Per cardiology: -Troponin 0.08, 0.08, 0.07 x2 in setting of FLORES on CKD. -LVEF preserved, no wall motion abnormalities. -Demand ischemia, nondiagnostic for ACS. No cardiac rehab warranted. (3) CAD (coronary artery disease) Current Visit: No Status: Chronic Per cardiology: -As above, hx of CAD and PCI. LHC per pt ~3 weeks ago with small vessel disease and no intervention. Requesting records. -Continue Statin, Plavix, BB, Nitrates. No ASA d/t being on Plavix and Coumadin. Qualifiers: Coronary Disease-Associated Artery/Lesion type: [place] artery [place] vs. transplanted heart: [place] heart Associated angina: without angina Qualified Code(s): I25.10 - Atherosclerotic heart disease of [place] coronary artery without angina pectoris (4) Atrial fibrillation Current Visit: No Status: Chronic Per cardiology: -Known hx of PAF. On Amiodarone and BB, currently paced. -Anticoagulated on Coumadin. INR supratherapeutic 5.6, currently on hold. Denies active bleeding. Reports management outpt per [facility]. Qualifiers: Atrial fibrillation type: paroxysmal Qualified Code(s): I48.0 - Paroxysmal atrial fibrillation Discussion w patient/family: The assessment and plan as outlined above was discussed with the patient who expressed understanding and agreement. All questions were answered. Thank you for involving us in the care of your patient. Please call with any questions. Discussed and reviewed with Subjective Principal diagnosis: FLORES Interval history: Patient denies chest pain. Objective Vital Signs, Last 4 Hours Temp Pulse Resp BP Pulse Ox 01/13/19 11:12 97.8 F 60 18 118/60 100 General: Conversant, No Apparent Distress HEENT: Atraumatic, Normocephaly, Mucus Membranes Moist Neck: No JVD, Normal carotid pulses Cardiac: Normal S1 and S2, No Murmur, Other (Irregularly irregular) Lungs: Normal Breath Sounds, No Wheeze, Rales, Rhonchi Neuro: Alert and responsive, No focal deficits noted Abdomen: Soft, Non-Tender Skin: No rashes noted on visualized skin Musculoskeletal: No Chest Wall Tenderness Extremities: No Clubbing, No Cyanosis, No Edema, Normal Pulses Results 01/13/19 05:07 01/13/19 05:07 Lab Results Impressions Echocardiogram 01/12/19 07:42 Impressions: LVEF 50-55%. Normal LV chamber size and function. Asymmetric hypertrophy of the basal septum. No LVOT obstruction. Moderate left ventricular diastolic dysfunction. Atypical septal motion consistent with paced rhythm. Normal right ventricular structure and function. Mild aortic regurgitation. Mild mitral regurgitation. No evidence of pulmonary hypertension identified. A device lead was visualized in the right atrium and right ventricle. Left Ventricular Wall Motion: Rest Echo Findings All wall segments showed normal motion. Findings: Study Quality * Technically adequate exam. ECG Findings * Paced rhythm. Left Ventricle * LVEF 50-55%. * Normal LV chamber size and function. * Asymmetric hypertrophy of the basal septum. No LVOT obstruction. * Moderate left ventricular diastolic dysfunction. * Atypical septal motion consistent with paced rhythm. Right Ventricle * Normal right ventricular structure and function. Left Atrium * Mild to moderately dilated left atrium. Right Atrium * Normal right atrial size. Aortic Valve * Trileaflet aortic valve. * Mildly sclerotic aortic valve leaflets. * Mild aortic regurgitation. * No aortic stenosis. Mitral Valve * Mild mitral annular calcification. * Mildly calcified mitral valve leaflets. * Mild mitral regurgitation. * No mitral stenosis. Tricuspid Valve * Normal tricuspid valve structure and function. * Trace tricuspid regurgitation. * No evidence of pulmonary hypertension. Pulmonic Valve * Normal pulmonic valve structure and function. * No pulmonic regurgitation. Aorta * Normally sized aortic root. Pericardium * The pericardium appears normal. IVC * Normal IVC dimensions and inspiratory collapse. Pulmonary Artery * Normal visualized portions of the main pulmonary artery. Device lead * A device lead was visualized in the right atrium and right ventricle. Retroperitoneum Ultrasound 01/12/19 11:00 IMPRESSION: Small bilateral simple renal cysts with a few nonobstructing renal parenchymal calcifications. Dependent echogenic material within the bladder suggesting debris/sludge. D/ / 01/12/2019 12:30:13 Wei Shearer MD / darleen Interpreting Provider: Wei Shearer MD Active Medications Amiodarone HCl (Cordarone) 200 mg PO DAILY [facility] Stop: 07/14/19 09:01 Last Admin: 01/13/19 08:22 Dose: 200 mg Documented by: Anastrozole (Arimidex) 1 mg PO DAILY [facility] Stop: 07/14/19 09:01 Last Admin: 01/13/19 08:21 Dose: 1 mg Documented by: Carvedilol (Coreg) 3.125 mg PO BIDWM [facility] Stop: 07/14/19 08:01 Last Admin: 01/13/19 08:44 Dose: Not Given Documented by: Clopidogrel Bisulfate (Plavix) 75 mg PO DAILY [facility] Stop: 07/14/19 09:01 Last Admin: 01/13/19 08:22 Dose: 75 mg Documented by: Dextrose/Water (Dextrose 50% (Syg)) 25 ml IVP AD PRN PRN Reason: Hypoglycemia Stop: 07/14/19 09:49 Diltiazem HCl (Cardizem Cd) 120 mg PO DAILY [facility] Stop: 07/15/19 09:01 Last Admin: 01/13/19 08:42 Dose: Not Given Documented by: Docusate Sodium (Colace) 100 mg PO DAILY PRN; Protocol PRN Reason: Constipation Stop: 07/14/19 07:33 Escitalopram Oxalate (Lexapro) 20 mg PO QAM [facility] Stop: 07/14/19 09:01 Last Admin: 01/13/19 08:21 Dose: 20 mg Documented by: Glucagon (Glucagen) 1 mg IM ONCE PRN PRN Reason: Hypoglycemia Stop: 07/14/19 09:49 Glucose (Gluctose) 15 gm PO ONCE PRN PRN Reason: Hypoglycemia Stop: 07/14/19 09:49 Glucose (Gluctose) 30 gm PO ONCE PRN PRN Reason: Hypoglycemia Stop: 07/14/19 09:49 Ceftriaxone Sodium 2,000 mg/ (Sterile Water) 20 mls @ 600 mls/hr IVP Q24H [facility] Stop: 07/14/19 09:01 Last Admin: 01/13/19 08:22 Dose: 600 mls/hr Documented by: Dextrose (Dextrose 5%) 1,000 mls @ 100 mls/hr IVC .Q10H PRN PRN Reason: HYPOGLYCEMIA Stop: 07/14/19 09:49 Insulin Detemir (Levemir) 40 unit SQ HS [facility] Stop: 07/14/19 21:01 Last Admin: 01/12/19 21:16 Dose: 40 unit Documented by: Insulin Human Lispro (Humalog) 0 units SQ HS [facility]; Protocol Stop: 07/14/19 21:01 Last Admin: 01/12/19 21:16 Dose: Not Given Documented by: Insulin Human Lispro (Humalog) 0 units SQ TIDAC [facility]; Protocol Stop: 07/14/19 11:31 Last Admin: 01/13/19 12:08 Dose: 4 units Documented by: Isosorbide Mononitrate (Imdur) 60 mg PO BID [facility] Stop: 07/14/19 09:01 Last Admin: 01/13/19 08:43 Dose: Not Given Documented by: Magnesium Citrate (Citroma) 150 ml PO DAILY PRN PRN Reason: Constipation Stop: 07/14/19 07:33 Naloxone HCl (Narcan) 0.4 mg IVP Q2MPRN PRN PRN Reason: SEE COMMENTS Stop: 07/14/19 07:38 Nitroglycerin (Nitroglycerin) 0.4 mg SL Q5MIN PRN PRN Reason: Chest Pain Stop: 07/14/19 07:33 Omeprazole (Prilosec) 20 mg PO DAILY [facility] Stop: 07/14/19 09:01 Last Admin: 01/13/19 08:22 Dose: 20 mg Documented by: Ondansetron HCl (Zofran) 4 mg IVP Q6HR PRN; Protocol PRN Reason: nausea or vomiting Stop: 07/15/19 08:53 Last Admin: 01/13/19 10:01 Dose: 4 mg Documented by: Ranolazine (Ranexa) 1,000 mg PO BID [facility] Stop: 07/14/19 09:01 Last Admin: 01/13/19 08:21 Dose: 1,000 mg Documented by: Rosuvastatin Calcium (Crestor) 40 mg PO HS [facility] Stop: 07/14/19 21:01 Last Admin: 01/12/19 21:16 Dose: 40 mg Documented by: Trazodone HCl (Trazodone) 50 mg PO HS PRN PRN Reason: Sleep Stop: 07/14/19 07:33 Warfarin Sodium (Coumadin Perpt) 1 each PO DAILY@1800 PRN PRN Reason: SEE COMMENTS Stop: 07/16/19 18:01 Laboratory Tests 01/11/19 01/12/19 01/12/19 17:47 05:54 11:18 Hgb INR Creatinine 3.02 H Troponin I 0.08 H* 0.08 H* 0.07 H* 01/12/19 01/13/19 01/13/19 18:13 05:07 05:07 Hgb 12.8 INR 4.5 H* Creatinine Troponin I 0.07 H* 01/13/19 05:07 Hgb INR Creatinine 2.10 H Troponin I - Imaging and Cardiology Chest Xray: report reviewed Echo: report reviewed - EKG Interpretation EKG results cardiology: other (Telemetry reviewed with average HR previous 12 hours noted to be 63, paced rhythm.) - VTE Documentation of Mechanical Device: Intermittent pneumatic compression device Consult Discharge Plan - Plan Referrals: Adalberto Quijano MD [Primary Care Provider] -
--- NOTE | 2019-01-13 13:34 | Internal Med Progress Note ---
Hospitalist Progress Note - Encounter Date of Encounter: 01/13/19 Time of Encounter: 13:30 - Subjective Interval History: I have seen and evaluated the patient at bedside. patient reports feel well, denies chest pain or shortness of breath. reports she has been following at the [facility] every two weeks. denies abdominal pain, denies blood in her urine or stool. - Exam Vitals: Temp Pulse Resp BP Pulse Ox 97.8 F 60 18 118/60 100 01/13/19 11:12 01/13/19 11:12 01/13/19 11:12 01/13/19 11:12 01/13/19 11:12 Exam: Vitals: Reviewed General: Alert and oriented x4. in no distress Skin: Normal color, no rash, no lesions. HEENT: EOM, pupils equal, round and reactive. Cardiovascular: RRR, normal S1 & S2, no rubs, murmurs or gallops. Lungs: CTA b/l, no wheezes or crackles. Abdomen: Soft, non-tender, no rigidity. Extremities: No deformity, no edema or tenderness, no joint swelling or clubbing. Neurological: Normal cognition and motor skills. Rest of the physical exam is non contributory - Assessment and Plan (1) Atrial fibrillation Current Visit: No Status: Chronic Assessment and Plan: Rate controlled. Patient is on carvedilol, amiodarone and diltiazem. On warfarin for secondary stroke prevention, INR supratherapeutic. (2) Supratherapeutic INR Current Visit: No Status: Acute Assessment and Plan: Hold today's dose of warfarin, recheck INR tomorrow morning. (3) Diastolic heart failure Current Visit: No Status: Chronic Assessment and Plan: Patient not on acute exacerbation. Fluid restriction to 1.5 L a day. Furosemide has been on hold as blood pressure has been running in the low 100s. (4) IDDM (insulin dependent diabetes mellitus) Current Visit: No Status: Chronic Assessment and Plan: Blood sugar is well controlled. Patient is on Levemir 40 units at bedtime and lispro low-dose sliding scale before meals. Carb controlled diet. (5) Acute renal failure superimposed on stage 3 chronic kidney disease Current Visit: Yes Status: Acute Assessment and Plan: Kidney function continued to improve, possible FLORES on presentation secondary to diuresis. Continue to hold furosemide. (6) Acute cystitis with hematuria Current Visit: Yes Status: Acute Assessment and Plan: Continue ceftriaxone 1 g IV daily. Urine culture no growth final report. (7) Hypokalemia Current Visit: Yes Status: Acute Assessment and Plan: Hypokalemia possible likely due to diuresis. Electrolyte replaced. We will recheck potassium level tomorrow morning. (8) CAD (coronary artery disease) Current Visit: No Status: Chronic Assessment and Plan: Patient presented with chest pain and [place] zone troponin. Cardiology evaluated the patient recommended against any intervention. Patient on a beta jocelyne, Plavix, ranexa and isosorbide. (9) HLD (hyperlipidemia) Current Visit: Yes Status: Chronic Assessment and Plan: Patient on rosuvastatin 40 mg by mouth at bedtime. (10) Subclinical hypothyroidism Current Visit: Yes Status: Chronic DVT Prophylaxis: Patient on warfarin with a supratherapeutic INR. - Summary of Assessment and Plan Summary of Assessment and Plan: Patient to remain in the hospital due to supratherapeutic INR. Potential discharge tomorrow morning. - Time Spent with Patient Total time spent is greater than 50% in coordination of care (as documented) at patient's floor/unit and/or counseling patient: Greater than 35 minutes (40) Plan of Care Discussed with: patient (and the nurse.) Internal Medicine: Result - Labs CBC & Chem 7: 01/13/19 05:07 01/13/19 05:07 Labs: Short CBC 01/13/19 Range/Units 05:07 WBC 5.0 (4.3-11.1) K/mcL Hgb 12.8 (11.5-15.4) g/dL Hct 37.5 (35.3-44.9) % Plt Count 175 (140-400) K/mcL BMP 01/12/19 01/13/19 19:58 05:07 Sodium 136 Potassium 3.2 L 3.1 L Chloride 100 Carbon Dioxide 25 BUN 69 H Creatinine 2.10 H Glucose 181 H Calcium 9.3 Cardiac Enzymes 01/12/19 Range/Units 18:13 Troponin I 0.07 H* (< 0.04) ng/mL Liver Function 01/13/19 Range/Units 05:07 Total Bilirubin 0.4 (0.3-1.0) mg/dL AST 24 (13-39) Units/L ALT 39 (7-52) Units/L Alkaline Phosphatase 64 (34-104) Units/L Albumin 4.2 (3.5-5.7) g/dL - ABG Interpretation ABG results: PT/INR, D-dimer PT 50.5 Seconds (9.4-12.1) H* 01/13/19 05:07 - Impressions Impressions Echocardiogram 01/12/19 07:42 Impressions: LVEF 50-55%. Normal LV chamber size and function. Asymmetric hypertrophy of the basal septum. No LVOT obstruction. Moderate left ventricular diastolic dysfunction. Atypical septal motion consistent with paced rhythm. Normal right ventricular structure and function. Mild aortic regurgitation. Mild mitral regurgitation. No evidence of pulmonary hypertension identified. A device lead was visualized in the right atrium and right ventricle. Left Ventricular Wall Motion: Rest Echo Findings All wall segments showed normal motion. Findings: Study Quality * Technically adequate exam. ECG Findings * Paced rhythm. Left Ventricle * LVEF 50-55%. * Normal LV chamber size and function. * Asymmetric hypertrophy of the basal septum. No LVOT obstruction. * Moderate left ventricular diastolic dysfunction. * Atypical septal motion consistent with paced rhythm. Right Ventricle * Normal right ventricular structure and function. Left Atrium * Mild to moderately dilated left atrium. Right Atrium * Normal right atrial size. Aortic Valve * Trileaflet aortic valve. * Mildly sclerotic aortic valve leaflets. * Mild aortic regurgitation. * No aortic stenosis. Mitral Valve * Mild mitral annular calcification. * Mildly calcified mitral valve leaflets. * Mild mitral regurgitation. * No mitral stenosis. Tricuspid Valve * Normal tricuspid valve structure and function. * Trace tricuspid regurgitation. * No evidence of pulmonary hypertension. Pulmonic Valve * Normal pulmonic valve structure and function. * No pulmonic regurgitation. Aorta * Normally sized aortic root. Pericardium * The pericardium appears normal. IVC * Normal IVC dimensions and inspiratory collapse. Pulmonary Artery * Normal visualized portions of the main pulmonary artery. Device lead * A device lead was visualized in the right atrium and right ventricle. - VTE Documentation of Mechanical Device: Intermittent pneumatic compression device Consult Discharge Plan - Plan Referrals: Adalberto Quijano MD [Primary Care Provider] - (1) Atrial fibrillation Qualifiers: Atrial fibrillation type: paroxysmal Qualified Code(s): I48.0 - Paroxysmal atrial fibrillation (3) Diastolic heart failure Qualifiers: Heart failure chronicity: chronic Qualified Code(s): I50.32 - Chronic diastolic (congestive) heart failure (5) Acute renal failure superimposed on stage 3 chronic kidney disease Qualifiers: Acute renal failure type: unspecified Qualified Code(s): N17.9 - Acute kidney failure, unspecified; N18.3 - Chronic kidney disease, stage 3 (moderate) (8) CAD (coronary artery disease) Qualifiers: Coronary Disease-Associated Artery/Lesion type: [place] artery [place] vs. transplanted heart: [place] heart Associated angina: without angina Qualified Code(s): I25.10 - Atherosclerotic heart disease of [place] coronary artery without angina pectoris (9) HLD (hyperlipidemia) Qualifiers: Hyperlipidemia type: unspecified Qualified Code(s): E78.5 - Hyperlipidemia, unspecified
--- NOTE | 2019-01-13 15:14 | Event Note ---
Date of Encounter: 01/13/19 Time of Encounter: 15:13 - Nephrology Event Note Nephrology Chart update GFR trending better, but still below her baseline. Continue to follow a renal protective strategy. My colleague Dr. Curry will be on-service tomorrow. Thank you.
[2019-01-13] MEDS: Insulin DETEMIR 100 UNIT/ML X5UNITS SQ SCH (20:39)
[2019-01-13] MEDS: traZODone 50 MG TABLET PO PRN (20:40)
[2019-01-14 02:45] LABS: Prothrombin Time 33.7 Seconds (9.4-12.1)
[2019-01-14 02:56] LABS: Phosphorous 2.6 mg/dL (2.7-4.5); Potassium 2.9 mEq/L (3.5-5.1)
[2019-01-14] MEDS: Insulin LISPRO 300 UNITS/3 ML VIAL SQ SCH ×4 (06:59→20:51)
[2019-01-14] MEDS: Amoxicillin/Clavulanate 500 MG TABLET PO SCH ×2 (08:10→17:08)
[2019-01-14] MEDS: Ranolazine 500 MG TAB.ER.12H PO SCH ×2 (08:10→20:50)
[2019-01-14] MEDS: Anastrozole 1 MG TABLET PO SCH (08:10)
[2019-01-14] MEDS: *HR* Amiodarone 200 MG TABLET PO SCH (08:15)
[2019-01-14] MEDS: Isosorbide MONOnitrate (24 HR) 60 MG TAB.ER.24H PO SCH ×2 (08:34→20:50)
[2019-01-14] MEDS: Diltiazem CD (24hr) 120 MG CAPSULE PO SCH (08:34)
--- NOTE | 2019-01-14 10:05 | Discharge Summary ---
- NOTES TO OUTPATIENT PROVIDER Notes to Outpatient Provider: BMP within a week. INR on Thursday Orders not resulted at time of discharge: Pending orders 01/13/19 06:00 ECG 12 lead ECG [ECG] AM 0600 01/15/19 04:00 PT/INR [Prothrombin Time INR] [COAG] AM 0400 Date of Encounter: 01/14/19 Time of Encounter: 10:05 - Discharge Diagnosis (1) Atrial fibrillation Priority: Secondary Status: Chronic Qualifiers: Atrial fibrillation type: paroxysmal Qualified Code(s): I48.0 - Paroxysmal atrial fibrillation (2) Supratherapeutic INR Priority: Primary Status: Acute (3) Diastolic heart failure Priority: Secondary Status: Chronic Qualifiers: Heart failure chronicity: chronic Qualified Code(s): I50.32 - Chronic diastolic (congestive) heart failure (4) IDDM (insulin dependent diabetes mellitus) Priority: Secondary Status: Chronic (5) Acute renal failure superimposed on stage 3 chronic kidney disease Priority: Primary Status: Acute Qualifiers: Acute renal failure type: unspecified Qualified Code(s): N17.9 - Acute kidney failure, unspecified; N18.3 - Chronic kidney disease, stage 3 (moderate) (6) Acute cystitis with hematuria Priority: Primary Status: Acute (7) Hypokalemia Priority: Primary Status: Acute (8) CAD (coronary artery disease) Priority: Secondary Status: Chronic Qualifiers: Coronary Disease-Associated Artery/Lesion type: [place] artery [place] vs. transplanted heart: [place] heart Associated angina: without angina Qualified Code(s): I25.10 - Atherosclerotic heart disease of [place] coronary artery without angina pectoris (9) HLD (hyperlipidemia) Priority: Secondary Status: Chronic Qualifiers: Hyperlipidemia type: unspecified Qualified Code(s): E78.5 - Hyperlipidemia, unspecified (10) Subclinical hypothyroidism Priority: Secondary Status: Chronic Hospital course: Ms. Fischer is a 73 year old female history of CAD status post stent, atrial fibrillation status post pacemaker, heart failure preserved ejection fraction and insulin-dependent diabetes presented to the emergency department with chest pain. Patient admitted to the hospital due to chest pain rule out ACS, acute kidney injury, hypokalemia, urinary tract infection, a supratherapeutic INR. Cardiology consulted for chest pain and troponin, recommended outpatient follow- up. Acute kidney injury believed to be secondary to diuresis, kidney function improved while in the hospital after holding home dose of diuretics. Electrolyte abnormality was corrected. Patient was treated with IV antibiotics for the urinary tract infection, urine culture no growth final report. Patient acute symptoms on presentation have resolved, and she is hemodynamically stable to be discharged. Patient recommended to take only 1 mg warfarin for next 3 days, and to follow-up with her warfarin clinic on Thursday. Recommended to follow-up with her director [employer] and have a repeat BMP within a week. - Time Spent with Patient Total time spent providing and/or coordinating discharge services: Time spent: Greater than 30 minutes (35) - Discharge Medications Prescriptions: New Amoxicillin/Clavulanate [Augmentin] 500 mg PO BIDWM 2 Days #4 tablet Continued Rosuvastatin [Crestor] 40 mg PO DAILY Escitalopram [Lexapro] 20 mg PO DAILY Insulin Glargine,Hum.rec.anlog [Lantus Solostar] 30 unit SQ HS Nitroglycerin 0.4 mg SL Q5MIN PRN #0 tab.subl PRN Reason: Chest Pain Clopidogrel [Plavix] 75 mg PO DAILY #30 tablet traZODone [TraZODone] 50 mg PO HS PRN PRN Reason: Sleep Ranolazine [Ranexa] 1,000 mg PO BID Anastrozole [Arimidex] 1 mg PO DAILY Isosorbide MONOnitrate (24 HR) [Imdur] 60 mg PO BID metOLazone [Zaroxolyn] 2.5 mg PO 2XW Pantoprazole Sodium [Protonix] 40 mg PO DAILY Spironolactone [Aldactone] 25 mg PO DAILY Potassium Chloride [Klor-Con 10] 20 meq PO BID Carvedilol 3.125 mg PO DAILY Warfarin [Coumadin] 2 mg PO SUMOWETHFRSA Amiodarone HCl 200 mg PO DAILY Diltiazem CD (24hr) [Cardizem CD] 120 mg PO DAILY Warfarin Sodium 1 mg PO TU Meclizine HCl [Verticalm] 25 mg PO DAILY PRN PRN Reason: NAUSEA/MOTION SICKNESS Docusate Sodium [Dok] 250 mg PO DAILY Changed Furosemide [Lasix] 40 mg PO DAILY 30 Days #30 tablet Home Medications: Escitalopram [Lexapro] 20 mg PO DAILY 05/16/15 [History] Rosuvastatin [Crestor] 40 mg PO DAILY 05/16/15 [History] Insulin Glargine,Hum.rec.anlog [Lantus Solostar] 30 unit SQ HS 07/06/16 [History] Nitroglycerin 0.4 mg SL Q5MIN PRN #0 tab.subl 07/10/16 [Rx] Clopidogrel [Plavix] 75 mg PO DAILY #30 tablet 08/15/16 [Rx] traZODone [TraZODone] 50 mg PO HS PRN 03/19/17 [History] Ranolazine [Ranexa] 1,000 mg PO BID 01/03/18 [History] Anastrozole [Arimidex] 1 mg PO DAILY 05/14/18 [History] Isosorbide MONOnitrate (24 HR) [Imdur] 60 mg PO BID 05/14/18 [History] Pantoprazole Sodium [Protonix] 40 mg PO DAILY 05/14/18 [History] metOLazone [Zaroxolyn] 2.5 mg PO 2XW 05/14/18 [History] Carvedilol 3.125 mg PO DAILY 01/11/19 [History] Potassium Chloride [Klor-Con 10] 20 meq PO BID 01/11/19 [History] Spironolactone [Aldactone] 25 mg PO DAILY 01/11/19 [History] Warfarin [Coumadin] 2 mg PO SUMOWETHFRSA 01/11/19 [History] Amiodarone HCl 200 mg PO DAILY 01/12/19 [History] Diltiazem CD (24hr) [Cardizem CD] 120 mg PO DAILY 01/12/19 [History] Docusate Sodium [Dok] 250 mg PO DAILY 01/12/19 [History] Meclizine HCl [Verticalm] 25 mg PO DAILY PRN 01/12/19 [History] Warfarin Sodium 1 mg PO TU 01/12/19 [History] Amoxicillin/Clavulanate [Augmentin] 500 mg PO BIDWM 2 Days #4 tablet 01/14/19 [Rx] Furosemide [Lasix] 40 mg PO DAILY 30 Days #30 tablet 01/14/19 [Rx] Allergies/Adverse Reactions: Allergy/AdvReac Type Severity Reaction Status Date / Time phenylbutazone Allergy Rash Verified 05/14/18 14:15 [From Butazolidin] amitriptyline [From Elavil] AdvReac Headache Verified 05/14/18 14:15 codeine AdvReac Headache Verified 05/14/18 14:15 desipramine AdvReac Headache Verified 05/14/18 14:15 lisinopril AdvReac Cough Verified 05/14/18 14:15 meperidine [From Demerol] AdvReac Headache Verified 05/14/18 14:15 nalbuphine AdvReac Headache Verified 05/14/18 14:15 Nortriptyline AdvReac Headache Verified 05/14/18 14:15 tiagabine AdvReac Headache Verified 05/14/18 14:15 Date of admission: 01/11/19 21:52 Primary care physician: Adalberto Quijano MD Consults: 01/12/19 07:36 Consult to Cardiology [CONS] Routine Comment: Consulting Provider: Cardiology Sandie Reason for Consult: chest pain, history of CAD, elevated troponin Call Completed: No 01/12/19 07:44 Consult to Nephrology [CONS] Routine Consulting Provider: Kidney Sandie/BRIDGETTE/ALEX/NATHAN Reason for Consult: waqas Call Completed: No - Constitutional Vitals: Temp Pulse Resp BP Pulse Ox 97.6 F 60 15 119/65 99 01/14/19 06:40 01/14/19 06:40 01/14/19 06:40 01/14/19 06:40 01/14/19 08:38 Exam: Vitals: Reviewed General: Alert and oriented x4. in no distress Cardiovascular: Irregularly irregular, normal S1 & S2, no rubs, murmurs or gallops. Lungs: CTA b/l, no wheezes or crackles. Abdomen: Soft, non-tender, no rigidity. Extremities: No edema. Neurological: Normal cognition Rest of the physical exam is non contributory - Patient Status Disposition: Home, Self-Care Condition: Good Functional capacity at discharge: independent ambulation Overall status at discharge: patient is back to baseline - Discharge Instructions Follow Up With: Adalberto Quijano MD [Primary Care Provider] - 01/19/19 1:15 pm - Diet and Activity Activity: resume usual activities as tolerated Diet: diabetic diet, low salt diet - VTE Documentation of Mechanical Device: Intermittent pneumatic compression device
--- NOTE | 2019-01-14 15:01 | Nephrology Progress Note ---
Date of Encounter: 01/14/19 Time of Encounter: 12:00 - Assessment and Plan (1) Hypokalemia Current Visit: No Status: Acute Potassium noted at 2.9, agree with aggressive repletion. Discussed with pharm and hospitalist Will need further supplements if discharged today Will need repeat labs within days after discharge Potassium rich diet advised Can use diuretics prn moving forward for CHF given persistent hypotension with aldactone added (2) FLORES (acute kidney injury) Current Visit: No Status: Acute SCr improving at 1.93, GFR 27 today, will monitor off diuretics UOP noted at only 100cc documented in the past 24hrs, unclear if accurate Continue to avoid nephrotoxins if possible (3) CKD (chronic kidney disease) stage 3, GFR 30-59 ml/min Current Visit: No Status: Chronic Baseline GFr typically 30-40s (4) HTN (hypertension) Current Visit: No Status: Chronic Stable on the low side while supine. Might need to decrease some of her BP meds Qualifiers: Qualified Code(s): I10 - Essential (primary) hypertension (5) Anticoagulated on Coumadin Current Visit: No Status: Chronic (6) Hyponatremia Current Visit: No Status: Resolved Subjective Principal diagnosis: FLORES Interval history: Interim events noted. Pt seen and examined with at bedside. Pt is well known to me from outpatient management of her CKD. She reports persistent fatigue and poor po intake. No BM in days. Potassium gtt noted Objective - Vital Signs Vital signs: Vital Signs Temp Pulse Resp BP Pulse Ox 01/14/19 10:25 98.2 F 60 16 113/60 100 01/14/19 08:38 99 01/14/19 06:40 97.6 F 60 15 119/65 99 01/14/19 03:38 97.6 F 61 16 101/62 99 01/13/19 23:19 97.6 F 62 16 128/73 98 01/13/19 19:05 98 F 61 16 110/48 98 01/13/19 16:21 98.5 F 60 18 139/52 98 Intake and Output 01/13/19 01/14/19 01/14/19 23:59 07:59 15:59 Intake Total 140 / 1090 950 / 1090 Output Total 100 / 100 0 / 0 Balance -100 / 40 140 / 1090 950 / 1090 Intake: IV Fluids 200 / 200 Potassium Chloride 10 mEq/100mL 200 / 200 10 meq In 100 ml @ 100 mls/hr IVPB Q1H SETH Rx#:[id number] Oral 140 / 890 750 / 890 Output: Urine 100 / 100 0 / 0 Other: # Urine Diapers 1 1 Weight 54.2 kg Blood Glucose* 211 74 108 Patient Weight 01/14/19 23:59 Weight 54.2 kg - General Appearance General appearance: Present: chronically ill, fatigue, frail EENT: Present: ATNC, mucous membranes dry Neck: Present: no JVD, supple Respiratory: Present: clear (ant bilat) Cardiology: Present: no edema, normal S1, normal S2 Gastrointestinal: Present: no tenderness, no guarding, obese (truncal) Integumentary: Present: warm and dry Neurologic: Present: no focal deficit Musculoskeletal: Present: no deformities Psychiatric: Present: mood/affect appropriate, cooperative - Lab 01/13/19 05:07 01/14/19 02:18 - VTE Documentation of Mechanical Device: Intermittent pneumatic compression device Consult Discharge Plan - Plan Referrals: Adalbreto Quijano MD [Primary Care Provider] - 01/19/19 1:15 pm Prescriptions: Amoxicillin/Clavulanate [Augmentin] 500 mg PO BIDWM 2 Days #4 tablet Furosemide [Lasix] 40 mg PO DAILY 30 Days #30 tablet
--- NOTE | 2019-01-14 15:19 | Physician Discharge Referral ---
Home Health/Hosp Referral Info Transfer to: Home Health - Diagnosis (1) Atrial fibrillation Priority: Secondary Status: Chronic (2) Supratherapeutic INR Priority: Primary Status: Resolved (3) Diastolic heart failure Priority: Secondary Status: Chronic (4) IDDM (insulin dependent diabetes mellitus) Priority: Secondary Status: Chronic (5) Acute renal failure superimposed on stage 3 chronic kidney disease Priority: Secondary Status: Acute (6) Acute cystitis with hematuria Priority: Secondary Status: Acute (7) Hypokalemia Priority: Secondary Status: Acute (8) CAD (coronary artery disease) Priority: Secondary Status: Chronic (9) HLD (hyperlipidemia) Priority: Secondary Status: Chronic (10) Subclinical hypothyroidism Priority: Secondary Status: Chronic - Respiratory Orders None Smoking Cessation: Smoking cessation has been advised. For more information, call the [employer] Quit Line at 5-512-GWVQ-NOW. - Diet/Nutrition Diet/Nutrition Orders: Regular - Activity Activity Orders: Ambulate - Services Needed Following services are medically necessary services: Nursing, Home Health Aide, Physical Therapy, Occupational Therapy - Transfer Medications Prescriptions: Amoxicillin/Clavulanate [Augmentin] 500 mg PO BIDWM 2 Days #4 tablet Furosemide [Lasix] 40 mg PO DAILY 30 Days #30 tablet Home Medications: Escitalopram [Lexapro] 20 mg PO DAILY 05/16/15 [History] Rosuvastatin [Crestor] 40 mg PO DAILY 05/16/15 [History] Insulin Glargine,Hum.rec.anlog [Lantus Solostar] 30 unit SQ HS 07/06/16 [History] Nitroglycerin 0.4 mg SL Q5MIN PRN #0 tab.subl 07/10/16 [Rx] Clopidogrel [Plavix] 75 mg PO DAILY #30 tablet 08/15/16 [Rx] traZODone [TraZODone] 50 mg PO HS PRN 03/19/17 [History] Ranolazine [Ranexa] 1,000 mg PO BID 01/03/18 [History] Anastrozole [Arimidex] 1 mg PO DAILY 05/14/18 [History] Isosorbide MONOnitrate (24 HR) [Imdur] 60 mg PO BID 05/14/18 [History] Pantoprazole Sodium [Protonix] 40 mg PO DAILY 05/14/18 [History] metOLazone [Zaroxolyn] 2.5 mg PO 2XW 05/14/18 [History] Carvedilol 3.125 mg PO DAILY 01/11/19 [History] Potassium Chloride [Klor-Con 10] 20 meq PO BID 01/11/19 [History] Spironolactone [Aldactone] 25 mg PO DAILY 01/11/19 [History] Warfarin [Coumadin] 2 mg PO SUMOWETHFRSA 01/11/19 [History] Amiodarone HCl 200 mg PO DAILY 01/12/19 [History] Diltiazem CD (24hr) [Cardizem CD] 120 mg PO DAILY 01/12/19 [History] Docusate Sodium [Dok] 250 mg PO DAILY 01/12/19 [History] Meclizine HCl [Verticalm] 25 mg PO DAILY PRN 01/12/19 [History] Warfarin Sodium 1 mg PO TU 01/12/19 [History] Amoxicillin/Clavulanate [Augmentin] 500 mg PO BIDWM 2 Days #4 tablet 01/14/19 [Rx] Furosemide [Lasix] 40 mg PO DAILY 30 Days #30 tablet 01/14/19 [Rx] Allergies/Adverse Reactions: Allergy/AdvReac Type Severity Reaction Status Date / Time phenylbutazone Allergy Rash Verified 05/14/18 14:15 [From Butazolidin] amitriptyline [From Elavil] AdvReac Headache Verified 05/14/18 14:15 codeine AdvReac Headache Verified 05/14/18 14:15 desipramine AdvReac Headache Verified 05/14/18 14:15 lisinopril AdvReac Cough Verified 05/14/18 14:15 meperidine [From Demerol] AdvReac Headache Verified 05/14/18 14:15 nalbuphine AdvReac Headache Verified 05/14/18 14:15 Nortriptyline AdvReac Headache Verified 05/14/18 14:15 tiagabine AdvReac Headache Verified 05/14/18 14:15 Certification: Further, I certify that my clinical findings support that this patient is homebound (i.e. absences from home require considerable and taxing effort and are for medical reasons or [employer] services or infrequently or short duration when for other reasons) because: Homebound Reason: Patient requires assistance of a person or device to safely leave home Attestation: My signature below is to certify that this patient is under my care and that I, or nurse practitioner, or a physician's addictions counselor assistant working with me, has a [id number] encounter with this patient.
[2019-01-14] MEDS ORDERED: Warfarin perPT PO PRN (18:00)
[2019-01-14] MEDS ORDERED: *HR* Warfarin 1 MG TABLET PO ONE (18:00)
[2019-01-14] MEDS: Insulin DETEMIR 100 UNIT/ML X5UNITS SQ SCH (20:50)
[2019-01-14] MEDS: traZODone 50 MG TABLET PO PRN (20:50)
[2019-01-15 02:47] LABS: Prothrombin Time 22.4 Seconds (9.4-12.1)
[2019-01-15 06:50] VITALS: BP 104/63
[2019-01-15] MEDS: Ranolazine 500 MG TAB.ER.12H PO SCH (08:21)
[2019-01-15] MEDS: Ondansetron 4 MG/2 ML VIAL IVP PRN (08:21)
[2019-01-15] MEDS: *HR* Amiodarone 200 MG TABLET PO SCH (08:22)
[2019-01-15] MEDS: Isosorbide MONOnitrate (24 HR) 60 MG TAB.ER.24H PO SCH (08:22)
[2019-01-15] MEDS: Anastrozole 1 MG TABLET PO SCH (08:22)
[2019-01-15] MEDS: Amoxicillin/Clavulanate 500 MG TABLET PO SCH (08:22)
[2019-01-15] MEDS: Diltiazem CD (24hr) 120 MG CAPSULE PO SCH (08:22)
[2019-01-15] MEDS: Insulin LISPRO 300 UNITS/3 ML VIAL SQ SCH (09:33)
--- NOTE | 2019-01-15 10:52 | Event Note ---
Date of Encounter: 01/15/19 Time of Encounter: 10:48 I have seen and evaluated the patient at bedside. Patient reports feeling nauseous, denies abdominal pain, chest pain or shortness of breath. Physical exam: Vitals: Reviewed General: Alert and oriented x4. in no distress Cardiovascular: RRR, normal S1 & S2, no rubs, murmurs or gallops. Lungs: CTA b/l, no wheezes or crackles. Abdomen: Soft, non-tender, no rigidity. Extremities: No edema Neurological: Normal cognition Rest of the physical exam is non contributory Assessment 1. Chest Pain (resolved) 2. Nausea 3. Atrial fibrillation 4. Supratherapeutic INR (resolved) 5. DM 6. UTI 7. Hypokalemia (resolved) 8. VTE prophylaxis Plan patient's acute symptoms on presentation have resolved and she is hemodynamically stable to be discharged home discharge summary dictated yesterday
[2019-01-15] MEDS ORDERED: *HR* Warfarin 2 MG TABLET PO ONE (18:00)
--- NOTE | 2019-01-18 11:03 | Electrocardiograph Report ---
[address] [address] Test Date: 2019-01-12 Pat Name: Miriam Fischer Department: 112 Room: 2A15 Gender: Loader Helper: : [id number] Requested By: Rosie Edouard Order Number: [id number] Reading MD: Loyda Neville Measurements Intervals [place] Rate: 60 P: 216 IN: 304 QRS: -45 QRSD: 184 T: 140 QT: 523 QTc: 524 Interpretive Statements ELECTRONIC ATRIAL PACEMAKER MARKED LEFT AXIS DEVIATION LEFT BUNDLE BRANCH BLOCK Electronically Signed On 01-18-2019 11:01:53 EDT by Loyda Neville
== END 2019-01-15 10:23 | disposition home or self-care (01) ==
LOC: 2ANU 17:16 → EMEROOARM 17:16 → 2ANU 22:35
PROVIDERS: ADMIT Pediatrics; ATTEND Pediatrics

== ENCOUNTER 2019-04-08 16:17 | Observation (INO) ==
[2019-04-08 16:52] LABS: Basophils % 0.4 %; Eosinophils # 0.2 K/mcL (0.0-0.6); Eosinophils % 3.6 %; Hemoglobin 12.4 g/dL (11.5-15.4); Immature Granulocytes % 0.6 % (0-4); Lymphocytes # 0.9 K/mcL (0.6-4.6); Lymphocytes % 18.9 %; Mean Corpuscular HGB Conc 31.8 g/dL (31.6-35.5); Mean Corpuscular Hemoglobin 26.7 pg (28.0-33.3); Mean Corpuscular Volume 83.9 fL (83.0-100.0); Mean Platelet Volume 10.5 fL (9.4-12.4); Monocytes # 0.5 K/mcL (0.0-1.3); Monocytes % 10.9 %; Neutrophils # 3.3 K/mcL (1.6-8.9); Platelet Count 173 K/mcL (140-400); Red Blood Count 4.65 M/mcL (3.82-4.97); Segmented Neutrophils % 65.6 %
[2019-04-08 17:00] LABS: INR 2.4
[2019-04-08 17:02] LABS: Activated Partial Thrombo Time 37.1 Seconds (26.0-36.0)
--- NOTE | 2019-04-08 17:09 | Emergency Department Note ---
Disposition Clinical Impression: Chest pain Qualifiers: Chest pain type: unspecified Qualified Code(s): R07.9 - Chest pain, unspecified Disposition: Admitted As Inpatient Condition: Good Referrals: Adalberto Quijano MD [Primary Care Provider] - Time of Disposition: 17:10 General Adult [facility] - General Chief complaint: ED Chest Pain Stated complaint: chest pain Time Seen by Provider: 04/08/19 16:19 Source: patient, family Limitations: no limitations - History of Present Illness Pain Scale: 4 - Related Data Home Medications Medication Instructions Recorded Confirmed Escitalopram [Lexapro] 20 mg PO DAILY 05/16/15 02/13/19 Rosuvastatin [Crestor] 40 mg PO DAILY 05/16/15 02/13/19 traZODone [TraZODone] 50 mg PO HS PRN 03/19/17 02/13/19 Ranolazine [Ranexa] 1,000 mg PO BID 01/03/18 02/13/19 Anastrozole [Arimidex] 1 mg PO DAILY 05/14/18 02/13/19 Isosorbide MONOnitrate (24 HR) 120 mg PO DAILY 05/14/18 02/13/19 [Imdur] Pantoprazole Sodium [Protonix] 40 mg PO DAILY 05/14/18 02/13/19 metOLazone [Zaroxolyn] 2.5 mg PO 2XW PRN 05/14/18 02/13/19 Spironolactone [Aldactone] 25 mg PO DAILY 01/11/19 02/13/19 Warfarin [Coumadin] 2 mg PO 1800 01/11/19 02/14/19 Amiodarone HCl 200 mg PO DAILY 01/12/19 02/13/19 Diltiazem CD (24hr) [Cardizem CD] 120 mg PO DAILY 01/12/19 02/14/19 Docusate Sodium [Dok] 250 mg PO DAILY 01/12/19 02/13/19 Furosemide [Lasix] 20 mg PO DAILY 02/13/19 02/14/19 Insulin Glargine,Hum.rec.anlog 40 unit SQ HS 02/13/19 02/13/19 [Lantus Solostar] Insulin LISPRO [Humalog Kwikpen 8 unit SQ TIDWM 02/13/19 02/13/19 U-100] Lactulose 10 gm PO Q3D PRN 02/13/19 02/13/19 Magnesium Citrate [Citroma] 296 ml PO DAILY PRN 02/13/19 02/13/19 Potassium Chloride [Klor-Con 10] 20 meq PO BID 02/13/19 02/13/19 Previous Rx's Medication Instructions Recorded Nitroglycerin 0.4 mg SL Q5MIN PRN #0 tab.subl 07/10/16 Clopidogrel [Plavix] 75 mg PO DAILY #30 tablet 08/15/16 Allergies Allergy/AdvReac Type Severity Reaction Status Date / Time phenylbutazone Allergy Rash Verified 05/14/18 14:15 [From Butazolidin] amitriptyline [From Elavil] AdvReac Headache Verified 05/14/18 14:15 codeine AdvReac Headache Verified 05/14/18 14:15 desipramine AdvReac Headache Verified 05/14/18 14:15 lisinopril AdvReac Cough Verified 05/14/18 14:15 meperidine [From Demerol] AdvReac Headache Verified 05/14/18 14:15 nalbuphine AdvReac Headache Verified 05/14/18 14:15 Nortriptyline AdvReac Headache Verified 05/14/18 14:15 tiagabine AdvReac Headache Verified 05/14/18 14:15 Past Medical History - Past Medical History Medical history: Reports: arthritis, atrial fibrillation, cancer, CHF, coronary artery disease, CVA, diabetes, GERD, hypertension, renal disease, other Surgical history: Reports: breast surgery Psychiatric history: Reports: depression, other ENERGY ASSISTANT history: Reports: no ENERGY ASSISTANT history - Social History Smoking Status: Never smoker Smokeless Tobacco Status: No Alcohol use: Reports: none Drug use: Reports: none Physical Exam - General Limitations: no limitations General appearance: alert, anxious Course Vital Signs Temperature 98.4 F 04/08/19 16:22 Pulse Rate 75 04/08/19 16:22 Respiratory Rate 24 04/08/19 16:22 Blood Pressure 135/62 04/08/19 16:22 O2 Sat by Pulse Oximetry 100 04/08/19 16:22 Temperature 98.4 F 04/08/19 16:22 Pulse Rate 75 04/08/19 16:22 Respiratory Rate 24 04/08/19 16:22 Blood Pressure 135/62 04/08/19 16:22 O2 Sat by Pulse Oximetry 100 04/08/19 16:22 Oxygen Delivery Oxygen Delivery Room Air Medical Decision Making - Lab Data Result diagrams: 04/08/19 16:35 Lab Results 04/08/19 04/08/19 Range/Units 16:35 16:35 WBC 5.0 (4.3-11.1) K/mcL RBC 4.65 (3.82-4.97) M/mcL Hgb 12.4 (11.5-15.4) g/dL Hct 39.0 (35.3-44.9) % MCV 83.9 (83.0-100.0) fL MCH 26.7 L (28.0-33.3) pg MCHC 31.8 (31.6-35.5) g/dL RDW 14.0 (11.5-14.5) % Plt Count 173 (140-400) K/mcL MPV 10.5 (9.4-12.4) fL Immature Gran % 0.6 (0-4) % Seg Neutrophils % 65.6 % Lymphocytes % 18.9 % Monocytes % 10.9 % Eosinophils % 3.6 % Basophils % 0.4 % Neutrophils # 3.3 (1.6-8.9) K/mcL Lymphocytes # 0.9 (0.6-4.6) K/mcL Monocytes # 0.5 (0.0-1.3) K/mcL Eosinophils # 0.2 (0.0-0.6) K/mcL Basophils # 0.0 (0.0-0.2) K/mcL PT 27.0 H (9.4-12.1) Seconds INR 2.4 APTT 37.1 H (26.0-36.0) Seconds Attestation Statement - Attestation Attestation: I reviewed the residents documentation and agree with the residents assessment and plan of care. I have personally had face to face time with the patient. (Brief History, Brief Exam, and MDM) I personally supervised and was present for the arreola/critical portions of the following procedures completed by the resident: EKG 73 year old female with history of sick sinus syndrome and has a a pacemaker secondary to this in additiont to a history of MD in the past which resulte din two cadaic stents at [facility] presents to the Ed with complaints of chest pain that is midsternal and radiates into her left jaw and neck. Jarret states thst this feels simlar to her cardiac events in the past. On EKG it appers that she in sustained Wide complex ventricular rhythm with a rate of 76 and then converts back to her baseline EKG after 10 minutes of interview. Jarret chest pain is presents, but she otherwise is not diaphoretic but is exerperiencing icnressed exerational disypnea. We will interrogate the pacemaker and then continue with cardiolopulmonary workup and conults cardiology before admission to the hospital
[2019-04-08 17:11] LABS: Calcium 9.6 mg/dL (8.6-10.3); Potassium 4.4 mEq/L (3.5-5.1); Troponin I 0.03 ng/mL (< 0.04)
--- NOTE | 2019-04-08 18:22 | Emergency Department Note ---
Disposition Clinical Impression: Chest pain Qualifiers: Chest pain type: unspecified Qualified Code(s): R07.9 - Chest pain, unspecified Disposition: Admitted As Inpatient Condition: Good Time of Disposition: 16:45 General Adult HPI - General Chief complaint: ED Chest Pain Stated complaint: chest pain Time Seen by Provider: 04/08/19 16:19 Source: patient, family Mode of arrival: private vehicle Limitations: no limitations Nursing Notes Reviewed: Yes Vital Signs Reviewed: Yes - History of Present Illness HPI Narrative: 73-year-old female with a pacemaker who was coming to the ER for complaints of weakness and developed chest pain at approximately 1600 today. Patient has a [employer] pacemaker. She is endorsing some nausea, feeling hot, dizziness and lightheadedness. She describes her pain as a pressure, it is about 8 out of 10 in severity. Made worse with exertion. There is nothing that makes it better. Pain Scale: 4 - Related Data Home Medications Medication Instructions Recorded Confirmed Escitalopram [Lexapro] 20 mg PO DAILY 05/16/15 04/08/19 Rosuvastatin [Crestor] 40 mg PO DAILY 05/16/15 04/08/19 traZODone [TraZODone] 50 mg PO HS PRN 03/19/17 04/08/19 Ranolazine [Ranexa] 1,000 mg PO BID 01/03/18 04/08/19 Anastrozole [Arimidex] 1 mg PO DAILY 05/14/18 04/08/19 Isosorbide MONOnitrate (24 HR) 120 mg PO DAILY 05/14/18 04/08/19 [Imdur] Pantoprazole Sodium [Protonix] 40 mg PO DAILY 05/14/18 04/08/19 metOLazone [Zaroxolyn] 2.5 mg PO 2XW PRN 05/14/18 04/08/19 Spironolactone [Aldactone] 25 mg PO DAILY 01/11/19 04/08/19 Warfarin [Coumadin] 2 mg PO DAILY 01/11/19 04/08/19 Amiodarone HCl 200 mg PO DAILY 01/12/19 04/08/19 Furosemide [Lasix] 20 mg PO DAILY 02/13/19 04/08/19 Insulin Glargine,Hum.rec.anlog 40 unit SQ HS 02/13/19 04/08/19 [Lantus Solostar] Insulin LISPRO [Humalog Kwikpen 8 unit SQ TIDWM 02/13/19 04/08/19 U-100] Lactulose 10 gm PO Q3D PRN 02/13/19 04/08/19 Diltiazem HCl [Cardizem LA] 240 mg PO DAILY 04/08/19 04/08/19 Docusate [Colace] 100 mg PO DAILY PRN 04/08/19 04/08/19 Semaglutide [Ozempic] 0.25 mg SQ QWEEK 04/08/19 04/08/19 Previous Rx's Medication Instructions Recorded Nitroglycerin 0.4 mg SL Q5MIN PRN #0 tab.subl 07/10/16 Clopidogrel [Plavix] 75 mg PO DAILY #30 tablet 08/15/16 Allergies Allergy/AdvReac Type Severity Reaction Status Date / Time phenylbutazone Allergy Rash Verified 05/14/18 14:15 [From Butazolidin] amitriptyline [From Elavil] AdvReac Headache Verified 05/14/18 14:15 codeine AdvReac Headache Verified 05/14/18 14:15 desipramine AdvReac Headache Verified 05/14/18 14:15 lisinopril AdvReac Cough Verified 05/14/18 14:15 meperidine [From Demerol] AdvReac Headache Verified 05/14/18 14:15 nalbuphine AdvReac Headache Verified 05/14/18 14:15 Nortriptyline AdvReac Headache Verified 05/14/18 14:15 tiagabine AdvReac Headache Verified 05/14/18 14:15 Review of Systems: In addition to that documented in the HPI above, the additional ROS was obtained: Constitutional: Denies fevers or chills Reports feeling hot Eyes: Denies vision changes ENMT: Denies sore throat CV: Denies chest pain Resp: Denies SOB GI: Denies vomiting or diarrhea : Denies painful urination MSK: Denies recent trauma Skin: Denies new rashes Neuro: Denies new numbness or tingling or weakness Endocrine: Denies unexpected weight loss Heme: Denies bleeding disorders Past Medical History - Past Medical History Medical history: Reports: arthritis, atrial fibrillation, cancer, CHF, coronary artery disease, CVA, diabetes, GERD, hypertension, renal disease, other Surgical history: Reports: breast surgery Psychiatric history: Reports: depression, other [employer] history: Reports: no [employer] HEL[employer] history - Social History Smoking Status: Never smoker Smokeless Tobacco Status: No Alcohol use: Reports: none Drug use: Reports: none Physical Exam General: A&O x 3. Appears mildly distressed. Well developed, well nourished. Head: atraumatic, normocephalic. ENT: No conjunctival injection, no scleral icterus. PERRLA. EOMI. Oropharynx non- erythematous. mucous membranes moist. Neuro: No focal deficits, no speech deficit, no facial droop, mentating well. BUE/BLE Str 5/5. Pulm: Lungs CTAB A/P. No wheezes, rales, ronchi. Cardio: RRR no m/r/g. Chest not tender to palpation. Abd: Soft, non-distended. Normoactive bowel sounds. Non-tender to palpation. No guarding. Non rigid. Extremities: Radial pulses 2+ marleyn, dorsalis pedis/posterior tibialis 2+ marleny. No LE edema. No cyanosis, clubbing. Skin: warm, dry, intact. No rashes. Psych: Appropriate mood and affect. Answers questions appropriately. Cooperative with exam. - General Limitations: no limitations General appearance: alert, anxious Course - Consultations Consultation #1: Spoke with Dr. Bobby who recommended heparin for her. 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 He will be sending the local rep to fix this tomorrow. Time: 18:24 Vital Signs Temperature 98.4 F 04/08/19 16:22 Pulse Rate 75 04/08/19 16:22 Respiratory Rate 24 04/08/19 16:22 Blood Pressure 135/62 04/08/19 16:22 O2 Sat by Pulse Oximetry 100 04/08/19 16:22 Temperature 98.4 F 04/08/19 16:22 Pulse Rate 67 04/08/19 19:02 Respiratory Rate 20 04/08/19 19:02 Blood Pressure 125/66 04/08/19 17:18 O2 Sat by Pulse Oximetry 96 04/08/19 19:02 Oxygen Delivery Oxygen Delivery Room Air Medical Decision Making - MDM Narrative Medical decision making narrative: 73F who presents with feeling like her heart is racing who then developed chest pain on her way here. We will perform cardiac workup including CBC, BMP, troponin, EKG, chest x-ray. Suspect that the patient will require admission for further workup and treatment of her cardiac problem. Initial troponin was negative, EKG did not show any signs consistent with STEMI. Chest x-ray did not show any findings concerning for acute cardiopulmonary disease. Cardiology was consult, please see course details for full details of the consult. Patient was started on heparin. Patient was admitted to the hospitalist Dr. Obregon who agreed to accept the patient to her service. Results of the workup including any imaging and/or labwork was shared with the patient at bedside. Patient was given an opportunity to ask questions at bedside and all of their concerns were addressed. Patient verbalized understanding and agreement with plan of care. Pt remained stable while in the department. - Medical Records Medical records reviewed: Yes I reviewed the patient's medical records. - Lab Data Lab results reviewed: Yes I reviewed the patient's lab results. Result diagrams: 04/08/19 16:35 04/08/19 16:35 Lab Results 04/08/19 04/08/19 04/08/19 Range/Units 16:35 16:35 16:35 WBC 5.0 (4.3-11.1) K/mcL RBC 4.65 (3.82-4.97) M/mcL Hgb 12.4 (11.5-15.4) g/dL Hct 39.0 (35.3-44.9) % MCV 83.9 (83.0-100.0) fL MCH 26.7 L (28.0-33.3) pg MCHC 31.8 (31.6-35.5) g/dL RDW 14.0 (11.5-14.5) % Plt Count 173 (140-400) K/mcL MPV 10.5 (9.4-12.4) fL Immature Gran % 0.6 (0-4) % Seg Neutrophils % 65.6 % Lymphocytes % 18.9 % Monocytes % 10.9 % Eosinophils % 3.6 % Basophils % 0.4 % Neutrophils # 3.3 (1.6-8.9) K/mcL Lymphocytes # 0.9 (0.6-4.6) K/mcL Monocytes # 0.5 (0.0-1.3) K/mcL Eosinophils # 0.2 (0.0-0.6) K/mcL Basophils # 0.0 (0.0-0.2) K/mcL PT 27.0 H (9.4-12.1) Seconds INR 2.4 APTT 37.1 H (26.0-36.0) Seconds Heparin Anti-Xa, Unfract (0.30-0.70) IU/mL Sodium 137 (136-145) mEq/L Potassium 4.4 (3.5-5.1) mEq/L Chloride 104 (98-107) mEq/L Carbon Dioxide 25 (23-29) mEq/L BUN 31 H (8-23) mg/dL Creatinine 1.83 H (0.60-1.20) mg/dL Est GFR ( Amer) 33 L (> 60) Est GFR (Non-Af Amer) 27 L (> 60) BUN/Creatinine Ratio 17 (6-26) Glucose 106 H (70-105) mg/dL Calculated Osmolality 291 (280-300) Calcium 9.6 (8.6-10.3) mg/dL Troponin I 0.03 (< 0.04) ng/mL 04/08/19 Range/Units 18:46 WBC (4.3-11.1) K/mcL RBC (3.82-4.97) M/mcL Hgb (11.5-15.4) g/dL Hct (35.3-44.9) % MCV (83.0-100.0) fL MCH (28.0-33.3) pg MCHC (31.6-35.5) g/dL RDW (11.5-14.5) % Plt Count (140-400) K/mcL MPV (9.4-12.4) fL Immature Gran % (0-4) % Seg Neutrophils % % Lymphocytes % % Monocytes % % Eosinophils % % Basophils % % Neutrophils # (1.6-8.9) K/mcL Lymphocytes # (0.6-4.6) K/mcL Monocytes # (0.0-1.3) K/mcL Eosinophils # (0.0-0.6) K/mcL Basophils # (0.0-0.2) K/mcL PT (9.4-12.1) Seconds INR APTT (26.0-36.0) Seconds Heparin Anti-Xa, Unfract 0.05 L (0.30-0.70) IU/mL Sodium (136-145) mEq/L Potassium (3.5-5.1) mEq/L Chloride (98-107) mEq/L Carbon Dioxide (23-29) mEq/L BUN (8-23) mg/dL Creatinine (0.60-1.20) mg/dL Est GFR ( Amer) (> 60) Est GFR (Non-Af Amer) (> 60) BUN/Creatinine Ratio (6-26) Glucose (70-105) mg/dL Calculated Osmolality (280-300) Calcium (8.6-10.3) mg/dL Troponin I (< 0.04) ng/mL - Radiology Data Radiology results reviewed: Yes I reviewed the patient's radiology results. Chest X-Ray 04/08/19 16:25 IMPRESSION: No evidence for acute cardiopulmonary process. D/ / Irving Alston MD / Irving Alston MD Interpreting Provider: Irving Alston MD - EKG Data EKG #1 EKG attestation: Yes I reviewed and interpreted this EKG. EKG results narrative: 1619: HR 79, rhythm paced a-v dual paced rhythm, QRS 182 and prolonged, Qtc [address] elevations in V3, V4, V5, V6, II, III, aVF, with ST depression in aVL. Diffuse ST elevation but does not meet criteria for STEMI based on Sgarbossa criteria. 1624: HR 75, rhythm paced, axis left at -83. QRS 158 and prolonged, QTc [address] elevation noted in V1-V2-V3 with ST depressions in II, III, aVF, but does not meet criteria for STEMI based on Sgarbossa criteria.
[2019-04-08] MEDS ORDERED: *HR* Heparin 5,000 UNIT/ML VIAL IVP ONE (18:26)
[2019-04-08] MEDS ORDERED: *HR* Heparin 5,000 UNIT/ML VIAL IVP PRN ×2 (18:26)
[2019-04-08] MEDS ORDERED: Heparin 25,000 UNIT/250 ML D5W 25,000 UNIT/250 ML IV.SOLN IVC SCH (18:30)
--- NOTE | 2019-04-08 20:24 | Internal Med History&Physical ---
<oJsué Mueller - Last Filed: 04/08/19 23:01> Date of Encounter: 04/08/19 Time of Encounter: 20:50 Internal Medicine - H&P: HPI Chief complaint: Chest pain Admitted From: Emergency Dept Plans for Post Hospital Care: Home History of present illness: Ms. Fischer is a 73 year old female with a PMHx of Afib, breast cancer, CHF, CAD, CVA, DM, GERD, HTN, CKD III, INEZ, sick sinus syndrome with biventricular pacemaker who presented to ED with a complaint of chest pains. Patient states that she was getting out of her car at approximately 1500 this afternoon she began to experience sudden onset left-sided chest discomfort. She describes it as an ache with radiation to her left neck and left arm. She has had symptoms like this previously and states she has an extensive cardiac history. Most recent cardiac workup was in September of this year in [place], where she did have a left heart catheterization which showed a complete occlusion the patient states this was not an unstentable region. Patient admits to associated shortness of breath as well as some palpitations and nausea but denies any sym ptoms of fevers, chills, diaphoresis. Her pain lasted approximately 2-3 hours before resolving in the emergency department. She denies any associated symptoms of vomiting, urinary symptoms, diarrhea. She does admit to chronic constipation as well as frequent episodes of feeling "unsteady "with some tingling in her toes and shakes. She also admits to some visual hallucinations which she has had in the past. She also admits to a declining mental status over the past couple years. Breast cancer was 2 years ago, no chemo or radiation. In the ED, vitals showed a HR of 75, RR 24, BP 135/62 and she was tolerating room air. Labs show INR of 2.4, BUN/Cr of 31/1.83 which is near baseline, trop onin was wnl. CXR showed no acute process. EKG showed Dual paced AV rhythm, prolonged qtc of 552, QRS 182. ST elevations in diffuse leads (II, III, AVF, V3, V4, V5, V6 with ST depression in I, AVL) however this was with av pacing. When magnet was placed, there was very mild ST elevation in V1 and V2 which were present on previous. At time of my interview, patient states that her chest pain is no longer present. She is no longer nauseous. Past medical history: As above Past surgical history: Orthopedic, pacemaker, lumpectomy, cardiac stent 2 Social history: Never smoker, denies alcohol or drug use Family history: Cardiac disease in multiple members of her family I did discuss CODE STATUS with this patient and she states that in the event cardiac arrest, she would desire cardiopulmonary resuscitation would not like "heroic measures "if prognosis seems poor. Full CODE STATUS will be made. 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 breast cancer. stage III renal failure. INEZ. sick sinus surgery Psychiatric history: depression, other - Past Surgical History Surgical History: breast surgery Additional surgical history: portal vein thrombosis,tummy tuck. back surgery. lap band sx. right breast lumpectomy. lymph node removal. 2 cardiac stents - Social History Smoking Status: Never smoker Smokeless Tobacco Status: No Alcohol use: none Drug use: none - Family History Father Adopted: No Family Member Ethnicity: Non- Living Status: Hx Family Cardiac Disorders: Yes Hx Family Respiratory Disorders: No Hx Family Cancer: No Hx Family GI Disorders: No Hx Family Endocrine Disorder: Yes Hx Family Neuromuscular Disorders: No Hx Family Neurologic Disorders: Yes Hx Family HEENT Disorders: No Hx Family Autoimmune Disorders: Yes Mother Family Member Ethnicity: Non- Living Status: Hx Family Cardiac Disorders: Yes Hx Family Respiratory Disorders: No Hx Family Cancer: Yes Hx Family GI Disorders: No Hx Family Endocrine Disorder: Yes Hx Family Neuromuscular Disorders: No Hx Family Neurologic Disorders: No Hx Family HEENT Disorders: No Hx Family Autoimmune Disorders: Yes (RA) Sister Adopted: No Living Status: Still Living Hx Family Cardiac Disorders: Yes Hx Family Respiratory Disorders: No Hx Family Cancer: No Hx Family GI Disorders: No Hx Family Endocrine Disorder: Yes Hx Family Neuromuscular Disorders: No Hx Family Neurologic Disorders: Yes Hx Family HEENT Disorders: No Hx Family Autoimmune Disorders: No Brother Adopted: No Living Status: Still Living Hx Family Cardiac Disorders: Yes Hx Family Respiratory Disorders: No Hx Family Cancer: No Hx Family GI Disorders: No Hx Family Endocrine Disorder: No Hx Family Neuromuscular Disorders: No Hx Family Neurologic Disorders: No Hx Family HEENT Disorders: No Hx Family Autoimmune Disorders: No Internal Medicine - H&P: Meds Escitalopram [Lexapro] 20 mg PO DAILY 05/16/15 [History] Rosuvastatin [Crestor] 40 mg PO DAILY 05/16/15 [History] Nitroglycerin 0.4 mg SL Q5MIN PRN #0 tab.subl 07/10/16 [Rx] Clopidogrel [Plavix] 75 mg PO DAILY #30 tablet 08/15/16 [Rx] traZODone [TraZODone] 50 mg PO HS PRN 03/19/17 [History] Ranolazine [Ranexa] 1,000 mg PO BID 01/03/18 [History] Anastrozole [Arimidex] 1 mg PO DAILY 05/14/18 [History] Isosorbide MONOnitrate (24 HR) [Imdur] 120 mg PO DAILY 05/14/18 [History] Pantoprazole Sodium [Protonix] 40 mg PO DAILY 05/14/18 [History] metOLazone [Zaroxolyn] 2.5 mg PO 2XW PRN 05/14/18 [History] Spironolactone [Aldactone] 25 mg PO DAILY 01/11/19 [History] Warfarin [Coumadin] 2 mg PO DAILY 01/11/19 [History] Amiodarone HCl 200 mg PO DAILY 01/12/19 [History] Furosemide [Lasix] 20 mg PO DAILY 02/13/19 [History] Insulin Glargine,Hum.rec.anlog [Lantus Solostar] 40 unit SQ HS 02/13/19 [History] Insulin LISPRO [Humalog Kwikpen U-100] 8 unit SQ TIDWM 02/13/19 [History] Lactulose 10 gm PO Q3D PRN 02/13/19 [History] Diltiazem HCl [Cardizem LA] 240 mg PO DAILY 04/08/19 [History] Docusate [Colace] 100 mg PO DAILY PRN 04/08/19 [History] Semaglutide [Ozempic] 0.25 mg SQ QWEEK 04/08/19 [History] Allergy/AdvReac Type Severity Reaction Status Date / Time phenylbutazone Allergy Rash Verified 05/14/18 14:15 [From Butazolidin] amitriptyline [From Elavil] AdvReac Headache Verified 05/14/18 14:15 codeine AdvReac Headache Verified 05/14/18 14:15 desipramine AdvReac Headache Verified 05/14/18 14:15 lisinopril AdvReac Cough Verified 05/14/18 14:15 meperidine [From Demerol] AdvReac Headache Verified 05/14/18 14:15 nalbuphine AdvReac Headache Verified 05/14/18 14:15 Nortriptyline AdvReac Headache Verified 05/14/18 14:15 tiagabine AdvReac Headache Verified 05/14/18 14:15 All Systems PM: A 10-system review of systems was performed and is negative for pertinent findings except as documented above in the HPI. Review of systems: - Constitutional: Denies fevers, chills, weight loss, generalized fatigue - Head/Neck: Admits to neck pain. Denies CANALES, neck stiffness - EENT: Admits to vision changes/visual hallucinations. Denies rhinorrhea, congestion, sore throat, odynaphagia - CVS: Admits to chest pain, palpitations. Denies VILLA, orthopnea, edema, PND, - Pulm: Admits to cough, shortness of breath. Denies sputum, hematemesis, wheezing - GI: Admits to nausea. Denies abdominal pain, anorexia, vomiting, diarrhea, constipation, melena - : Denies dysuria, increased frequency, urgency, hematuria, - Heme: Admits to bruising secondary to falls. - MSK: Denies joint pain, limited ROM - Skin: Denies rashes, ulcers, color changes, - Neuro: Admits to forgetfulness. Denies CANALES, paresthesias, focal deficits, ataxia, - Constitutional Vitals: Temp Pulse Resp BP Pulse Ox 98.4 F 67 20 130/61 96 04/08/19 16:22 04/08/19 19:02 04/08/19 20:11 04/08/19 20:11 04/08/19 19:02 Exam: Gen.: Vitals noted. No acute distress. AAOx3, resting comfortably in bed. HEENT: PERRL/EOMI, oropharynx clear, Normocephalic, atraumatic, MMM Cardiac: Irregular rhythm, rate controlled., no murmur, +S1/S2, No BLE edema Pulmonary: CTA bilaterally, no wheezes, rales or rhonchi, equal chest expansion, unlabored breathing Abdomen: soft, nontender, BS noted, no guarding, no palpable HSM Back: Nontender throughout. Skin: warm and dry, no visible lesions. MSK: ROM intact, no joint swelling noted, gait no assessed while in bed. Non tender calf or clubbing Neuro: A&Ox3, moves all extremities, no focal deficits, sensation intact. Appears lost trying to remember at times. Psych: Appropriate mood and behavior Internal Med - H&P Results - Labs CBC & Chem 7: 04/08/19 16:35 04/08/19 16:35 Labs: Short CBC 04/08/19 Range/Units 16:35 WBC 5.0 (4.3-11.1) K/mcL Hgb 12.4 (11.5-15.4) g/dL Hct 39.0 (35.3-44.9) % Plt Count 173 (140-400) K/mcL Neutrophils # 3.3 (1.6-8.9) K/mcL BMP 04/08/19 16:35 Sodium 137 Potassium 4.4 Chloride 104 Carbon Dioxide 25 BUN 31 H Creatinine 1.83 H Glucose 106 H Calcium 9.6 Cardiac Enzymes 04/08/19 Range/Units 16:35 Troponin I 0.03 (< 0.04) ng/mL - Impressions ITS Impressions Chest X-Ray 04/08/19 16:25 IMPRESSION: No evidence for acute cardiopulmonary process. D/ / Irving Alston MD / Irving Alston MD Interpreting Provider: Irving Alston MD - Assessment and Plan (1) Chest pain Current Visit: Yes Status: Acute Assessment and plan: - Patient presenting with atypical chest pain - She reports a dull left-sided chest pain with radiation to the neck and arm but denies any exertional components - She does have a very significant history of coronary artery disease with a ssociated systolic heart failure, tachybradycardia syndrome - Suspected etiology is likely pacemaker desynchrony, however ischemic changes are also a possibility - She has been seen by cardiology most recently 01/12/19 - Most recent cardiac workup was reportedly in [place] this winter with findings of reported blockage that could not be stented due to location - In the emergency department, pacemaker was found to be in MVR mode which per ER documentation cardiology and [employer] rep will see the patient - It is reported that this mode because desynchrony of atrial ventricles possibly contributing to her chest pain - Currently patient is chest pain-free - Cardiology did recommend a heparin drip in the interum - Troponin was 0.03 - EKG was reported in the emergency room with diffuse ST elevations however did not reportedly meet STEMI criteria, After review, there were diffuse ST elevations however when magnet was placed these resolved and were similar to previous EKG in February 2018 - EKG was repeated with similar findings Plan - Cardiology consulted, [employer] rep with see patient in AM - Trend troponins - Continue heparin gtt. -Continue home plavix, ranexa, NTG, imdur Qualifiers: Chest pain type: unspecified Qualified Code(s): R07.9 - Chest pain, unspecified (2) Tachy-mikael syndrome Current Visit: Yes Status: Chronic Assessment and plan: As above Status post pacemaker (3) Diabetes Current Visit: Yes Status: Chronic Assessment and plan: Known history of insulin-dependent type 2 diabetes Blood sugar relatively well controlled upon presentation We will continue sliding scale insulin, basal insulin 25 units daily at bedtime ADA diet Qualifiers: Diabetes mellitus type: type 2 Diabetes mellitus ferry terminal agent insulin use: with custodial use Diabetes mellitus complication status: with neurologic complications Diabetes mellitus complication detail: with polyneuropathy Qualified Code(s): E11.42 - Type 2 diabetes mellitus with diabetic polyneuropathy; Z79.4 - ferry terminal agent (current) use of insulin (4) HTN (hypertension) Current Visit: Yes Status: Chronic Assessment and plan: Well-controlled this time at 127/61 Continue home medications Qualifiers: Hypertension type: essential hypertension Qualified Code(s): I10 - Essential (primary) hypertension (5) CKD (chronic kidney disease), stage III Current Visit: Yes Status: Chronic Assessment and plan: Known history of CKD stage III BUNs/creatinine presentation Baseline creatinine appears to be anywhere from 1.3 to 1.8 This is mildly decreased from baseline however she does not appear to me acute kidney injury criteria We will continue monitor and renally dose medications (6) Pacemaker Current Visit: Yes Status: Chronic Assessment and plan: As above (7) CAD (coronary artery disease) Current Visit: Yes Status: Chronic Assessment and plan: As above for chest pain Qualifiers: Coronary Disease-Associated Artery/Lesion type: [place] artery [place] vs. transplanted heart: [place] heart Associated angina: without angina Qualified Code(s): I25.10 - Atherosclerotic heart disease of [place] coronary artery without angina pectoris (8) Chronic systolic CHF (congestive heart failure) Current Visit: Yes Status: Chronic Assessment and plan: Chronic known systolic failure with ejection fraction of 50-55% with moderate diastolic dysfunction Takes Lasix at home 20 mg twice a day Does not appear to be in acute exacerbation Continue home meds (9) DVT prophylaxis Current Visit: Yes Status: Acute Assessment and plan: On heparin drip - Time Spent With Patient Total time spent is greater than 50% in coordination of care (as documented) at patient's floor/unit and/or counseling patient: <Adeel Del Valle - Last Filed: 04/09/19 00:00> Date of Encounter: 04/08/19 Internal Medicine - H&P: HPI History of present illness: Ms. Fischer is a 73 year old female All Systems PM: A 10-system review of systems was performed and is negative for pertinent findings except as documented above in the HPI. - Constitutional Vitals: Temp Pulse Resp BP Pulse Ox 98.5 F 60 16 127/61 97 04/08/19 21:05 04/08/19 21:05 04/08/19 21:05 04/08/19 21:05 04/08/19 21:13 Internal Med - H&P Results - Labs CBC & Chem 7: 04/08/19 16:35 04/08/19 16:35 Labs: Short CBC 04/08/19 Range/Units 16:35 WBC 5.0 (4.3-11.1) K/mcL Hgb 12.4 (11.5-15.4) g/dL Hct 39.0 (35.3-44.9) % Plt Count 173 (140-400) K/mcL Neutrophils # 3.3 (1.6-8.9) K/mcL BMP 04/08/19 16:35 Sodium 137 Potassium 4.4 Chloride 104 Carbon Dioxide 25 BUN 31 H Creatinine 1.83 H Glucose 106 H Calcium 9.6 Cardiac Enzymes 04/08/19 04/08/19 Range/Units 16:35 22:17 Troponin I 0.03 0.03 (< 0.04) ng/mL - Impressions ITS Impressions Chest X-Ray 04/08/19 16:25 IMPRESSION: No evidence for acute cardiopulmonary process. D/ / Irving Alston MD / Irving Alston MD Interpreting Provider: Irving Alston MD - Time Spent With Patient Total time spent is greater than 50% in coordination of care (as documented) at patient's floor/unit and/or counseling patient: - Attending Attestation I saw and evaluated the patient. I reviewed the residents note, performed my own physical examination and agree with findings and plan as documented in the residents note. Patient seen and examined on 04/08/19. Patient presented to the ER with chest pain, found to have a pacemaker issue. Cardiology and [employer] rep notified, will see the patient in the morning. Currently chest pain free, no complaints. Follow up recommen dations, continue to monitor on telemetry, heparin drip.
[2019-04-08] MEDS ORDERED: Naloxone 0.4 MG/ML INJ IVP PRN (21:19)
[2019-04-08] MEDS ORDERED: Acetaminophen 325 MG TABLET PO PRN (21:19)
[2019-04-08] MEDS ORDERED: Ondansetron 4 MG/2 ML VIAL IVP PRN (21:19)
[2019-04-08] MEDS ORDERED: Nitroglycerin 0.4 MG TAB.SUBL SL PRN (21:20)
[2019-04-08] MEDS ORDERED: *HR* Dextrose 50 % in Water (Syg) 50 ML SYRINGE IVP PRN (21:23)
[2019-04-08] MEDS ORDERED: D5% in Water 1,000 ML IVC PRN (21:23)
[2019-04-08] MEDS ORDERED: Dextrose Gel 15 GM/37.5 ML TUBE PO PRN ×2 (21:23)
[2019-04-08] MEDS: traZODone 50 MG TABLET PO PRN (23:00)
[2019-04-09 01:38] LABS: Basophils % 0.4 %; Eosinophils # 0.2 K/mcL (0.0-0.6); Eosinophils % 4.2 %; Hematocrit 34.5 % (35.3-44.9); Hemoglobin 11.2 g/dL (11.5-15.4); Immature Granulocytes % 0.6 % (0-4); Lymphocytes # 1.2 K/mcL (0.6-4.6); Lymphocytes % 25.9 %; Mean Corpuscular HGB Conc 32.5 g/dL (31.6-35.5); Mean Corpuscular Hemoglobin 26.9 pg (28.0-33.3); Mean Corpuscular Volume 82.7 fL (83.0-100.0); Mean Platelet Volume 10.5 fL (9.4-12.4); Monocytes # 0.4 K/mcL (0.0-1.3); Monocytes % 9.3 %; Neutrophils # 2.8 K/mcL (1.6-8.9); Platelet Count 155 K/mcL (140-400); Red Blood Count 4.17 M/mcL (3.82-4.97); Red Cell Distribution Width 13.9 % (11.5-14.5); Segmented Neutrophils % 59.6 %; White Blood Count 4.8 K/mcL (4.3-11.1)
[2019-04-09 01:48] LABS: INR 2.9; Prothrombin Time 32.8 Seconds (9.4-12.1)
[2019-04-09 02:12] LABS: Chol/HDL Ratio 3.1 (0-4.9); Magnesium 1.8 mg/dL (1.6-2.6); Potassium 3.8 mEq/L (3.5-5.1); Troponin I 0.04 ng/mL (< 0.04)
--- NOTE | 2019-04-09 07:08 | Cardiology Consult Note ---
Date of Encounter: 04/09/19 Time of Encounter: 07:05 Assessment and Plan (1) Chest pain Current Visit: Yes Status: Acute Possibly due to her pacing settings needing adjustment. Also has known MECHANIC ASSISTANT which is reportedly unamenable to revascularization that may also explain her chest pain and mild troponin. Limited TTE to assess for WMA and EF Qualifiers: Chest pain type: unspecified Qualified Code(s): R07.9 - Chest pain, unspecified (2) CAD (coronary artery disease) Current Visit: No Status: Chronic Continue aspirin, BB, statin as tolerated. Qualifiers: Coronary Disease-Associated Artery/Lesion type: [place] artery [place] vs. transplanted heart: [place] heart Associated angina: without angina Qualified Code(s): I25.10 - Atherosclerotic heart disease of [place] coronary artery without angina pectoris (3) Pacemaker Current Visit: Yes Status: Chronic Device rep to make adjustments today Discussion w patient/family: The assessment and plan as outlined above was discussed with the patient and/or family members who expressed understanding and agreement. All questions were answered. Thank you for involving us in the care of your patient. Please call with any questions. History of Present Illness Consult date: 04/09/19 Consult reason: chest pain Chief complaint: chest pain History of present illness: Ms. Fischer is a 73 year old female Afib on amiodarone and coumadin, breast cancer, CHF, CAD with reported history of MECHANIC ASSISTANT, CVA, DM, GERD, HTN, CKD III, INEZ, sick sinus syndrome with biventricular pacemaker who presented to ED with a complaint of chest pain. Patient states that she was getting out of her car at approximately 1500 this afternoon she began to experience sudden onset left- sided chest discomfort. She describes it as an ache with radiation to her left neck and left arm. It was associated with a queasy feeling. Most recent cardiac workup was in September of this year in [place], where she did have a left heart catheterization which showed a complete occlusion the patient states there was no option for PCI and thinks she had a stress test over the last year without any ischemic findings. Patient admits to associated shortness of breath as well as some palpitations and nausea but denies any symptoms of fevers, chills, diaphoresis. Her pain lasted approximately 2-3 hours before resolving in the emergency department. She denies any associated symptoms of vomiting, urinary symptoms, diarrhea There was abnormal findings on device interrogation in the ED with plan for the device rep to make changes today. 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 breast cancer. stage III renal failure. INEZ. sick sinus surgery Psychiatric history: depression, other - Past Surgical History Surgical History: breast surgery Additional surgical history: portal vein thrombosis,tummy tuck. back surgery. lap band sx. right breast lumpectomy. lymph node removal. 2 cardiac stents - Social History Smoking Status: Never smoker Smokeless Tobacco Status: No Alcohol use: none Drug use: none - Family History Father Adopted: No Family Member Ethnicity: Non- Living Status: Hx Family Cardiac Disorders: Yes Hx Family Respiratory Disorders: No Hx Family Cancer: No Hx Family GI Disorders: No Hx Family Endocrine Disorder: Yes Hx Family Neuromuscular Disorders: No Hx Family Neurologic Disorders: Yes Hx Family HEENT Disorders: No Hx Family Autoimmune Disorders: Yes Mother Family Member Ethnicity: Non- Living Status: Hx Family Cardiac Disorders: Yes Hx Family Respiratory Disorders: No Hx Family Cancer: Yes Hx Family GI Disorders: No Hx Family Endocrine Disorder: Yes Hx Family Neuromuscular Disorders: No Hx Family Neurologic Disorders: No Hx Family HEENT Disorders: No Hx Family Autoimmune Disorders: Yes (RA) Sister Adopted: No Living Status: Still Living Hx Family Cardiac Disorders: Yes Hx Family Respiratory Disorders: No Hx Family Cancer: No Hx Family GI Disorders: No Hx Family Endocrine Disorder: Yes Hx Family Neuromuscular Disorders: No Hx Family Neurologic Disorders: Yes Hx Family HEENT Disorders: No Hx Family Autoimmune Disorders: No Brother Adopted: No Living Status: Still Living Hx Family Cardiac Disorders: Yes Hx Family Respiratory Disorders: No Hx Family Cancer: No Hx Family GI Disorders: No Hx Family Endocrine Disorder: No Hx Family Neuromuscular Disorders: No Hx Family Neurologic Disorders: No Hx Family HEENT Disorders: No Hx Family Autoimmune Disorders: No Medications and Allergies Escitalopram [Lexapro] 20 mg PO DAILY 05/16/15 [History] Rosuvastatin [Crestor] 40 mg PO DAILY 05/16/15 [History] Nitroglycerin 0.4 mg SL Q5MIN PRN #0 tab.subl 07/10/16 [Rx] Clopidogrel [Plavix] 75 mg PO DAILY #30 tablet 08/15/16 [Rx] traZODone [TraZODone] 50 mg PO HS PRN 03/19/17 [History] Ranolazine [Ranexa] 1,000 mg PO BID 01/03/18 [History] Anastrozole [Arimidex] 1 mg PO DAILY 05/14/18 [History] Isosorbide MONOnitrate (24 HR) [Imdur] 120 mg PO DAILY 05/14/18 [History] Pantoprazole Sodium [Protonix] 40 mg PO DAILY 05/14/18 [History] metOLazone [Zaroxolyn] 2.5 mg PO 2XW PRN 05/14/18 [History] Spironolactone [Aldactone] 25 mg PO DAILY 01/11/19 [History] Warfarin [Coumadin] 2 mg PO DAILY 01/11/19 [History] Amiodarone HCl 200 mg PO DAILY 01/12/19 [History] Furosemide [Lasix] 20 mg PO DAILY 02/13/19 [History] Insulin Glargine,Hum.rec.anlog [Lantus Solostar] 40 unit SQ HS 02/13/19 [History] Insulin LISPRO [Humalog Kwikpen U-100] 8 unit SQ TIDWM 02/13/19 [History] Lactulose 10 gm PO Q3D PRN 02/13/19 [History] Diltiazem HCl [Cardizem LA] 240 mg PO DAILY 04/08/19 [History] Docusate [Colace] 100 mg PO DAILY PRN 04/08/19 [History] Semaglutide [Ozempic] 0.25 mg SQ QWEEK 04/08/19 [History] Allergy/AdvReac Type Severity Reaction Status Date / Time phenylbutazone Allergy Rash Verified 05/14/18 14:15 [From Butazolidin] amitriptyline [From Elavil] AdvReac Headache Verified 05/14/18 14:15 codeine AdvReac Headache Verified 05/14/18 14:15 desipramine AdvReac Headache Verified 05/14/18 14:15 lisinopril AdvReac Cough Verified 05/14/18 14:15 meperidine [From Demerol] AdvReac Headache Verified 05/14/18 14:15 nalbuphine AdvReac Headache Verified 05/14/18 14:15 Nortriptyline AdvReac Headache Verified 05/14/18 14:15 tiagabine AdvReac Headache Verified 05/14/18 14:15 All Systems Review: The remainder of the systems were reviewed and are negative - Constitutional Constitutional: no chills, no fever(s) - EENT Eyes: no blurred vision, no loss of vision Nose, mouth and throat: no dysphagia, no odynophagia - Cardiovascular Cardiovascular: chest pain at rest, diaphoresis, no slow heart rate - Respiratory Respiratory: no hemoptysis, no wheezing - Gastrointestinal Gastrointestinal: no hematemesis, no hematochezia - Genitourinary Genitourinary: no hematuria, no nocturia - Musculoskeletal Musculoskeletal: no arthralgias, no myalgias - Integumentary Integumentary: no rash, no unusual bruising - Neurological Neurological: no syncope, no tingling - Psychiatric Psychiatric: no hallucinations, no panic attacks Physical Examination Vital Signs, Last 4 Hours Temp Pulse Resp BP Pulse Ox 04/09/19 06:41 98.1 F 100 16 120/78 98 04/09/19 03:42 97.8 F 66 16 114/63 98 General: Conversant HEENT: Atraumatic Neck: No JVD Cardiac: Reg Rate and Rhythm Lungs: Normal Breath Sounds Neuro: Alert and responsive Abdomen: Soft Skin: No rashes noted on visualized skin Musculoskeletal: No Chest Wall Tenderness Extremities: No Clubbing Results 04/09/19 01:20 04/09/19 01:20 Lab Results 04/08/19 04/08/19 04/08/19 16:35 16:35 16:35 WBC 5.0 Hgb 12.4 Hct 39.0 Plt Count 173 INR 2.4 APTT 37.1 H Sodium 137 Potassium 4.4 Chloride 104 Carbon Dioxide 25 BUN 31 H Creatinine 1.83 H Glucose 106 H Calcium 9.6 Magnesium Troponin I 0.03 04/08/19 04/09/19 04/09/19 22:17 01:20 01:20 WBC 4.8 Hgb 11.2 L Hct 34.5 L Plt Count 155 INR APTT Sodium 137 Potassium 3.8 Chloride 107 Carbon Dioxide 23 BUN 30 H Creatinine 1.66 H Glucose 99 Calcium 9.0 Magnesium 1.8 Troponin I 0.03 0.04 H* 04/09/19 01:20 WBC Hgb Hct Plt Count INR 2.9 APTT Sodium Potassium Chloride Carbon Dioxide BUN Creatinine Glucose Calcium Magnesium Troponin I - EKG Interpretation EKG results cardiology: personally reviewed Consult Discharge Plan - Plan Referrals: Adalberto Quijano MD [Primary Care Provider] -
[2019-04-09] MEDS: Spironolactone 25 MG TABLET PO SCH (08:16)
[2019-04-09] MEDS: Insulin LISPRO 300 UNITS/3 ML VIAL SQ SCH ×3 (08:16→16:22)
[2019-04-09] MEDS: Diltiazem CD (24hr) 240 MG CAPSULE PO SCH (08:17)
[2019-04-09] MEDS: Isosorbide MONOnitrate (24 HR) 60 MG TAB.ER.24H PO SCH (08:17)
[2019-04-09] MEDS: *HR* Amiodarone 200 MG TABLET PO SCH (08:17)
[2019-04-09] MEDS: Ranolazine 500 MG TAB.ER.12H PO SCH ×2 (08:17→20:29)
--- NOTE | 2019-04-09 14:52 | Internal Med Progress Note ---
Hospitalist Progress Note - Encounter Date of Encounter: 04/09/19 Time of Encounter: 14:50 - Subjective Interval History: Evaluated patient earlier today. Denies any chest pain or palpitations this morning. Has been having episodes of chest pain intermittently over the past few weeks. 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 No shortness of breath. - Exam Vitals: Temp Pulse Resp BP Pulse Ox 98.2 F 56 16 109/64 97 04/09/19 10:59 04/09/19 10:59 04/09/19 10:59 04/09/19 10:59 04/09/19 10:59 Exam: General: Patient is alert, no acute distress, oriented x 3 Respiratory: Good respiratory effort. Normal breath sounds. No wheezing or crackles. Cardiovascular: Regular rate and rhythm. s1 and s2 normal No clicks, rubs, gallops, or murmurs. No pedal edema Abdomen: Abdomen is soft, nontender. Bowel sounds are present Musculoskeletal: Spontaneously moving all extremities Skin: warm, dry, intact. Neuro: Alert oriented x 3 normal cranial nerves, no focal deficits - Assessment and Plan (1) Chest pain Current Visit: Yes Status: Acute (2) CAD (coronary artery disease) Current Visit: Yes Status: Chronic (3) CKD (chronic kidney disease), stage III Current Visit: Yes Status: Chronic (4) Combined systolic and diastolic congestive heart failure Current Visit: Yes Status: Chronic (5) Atrial fibrillation Current Visit: Yes Status: Chronic DVT Prophylaxis: Patient currently on IV heparin. Will switch back to Coumadin - Summary of Assessment and Plan Summary of Assessment and Plan: Chest pain: Troponins adynamic. Mildly trended up to 0.04 but chronic. Now resolved. Cardiology evaluated patient. Recommend echocardiogram. Pacemaker: Abnormal EKGs noted on ER. Most likely related to device leads. Pacemaker appears to come and to adjust leads today. Coronary artery disease: Continue Plavix, statin. Continue Imdur and Ranexa. Chronic A. fib: Continue the amiodarone. On anticoagulation with Coumadin. - Time Spent with Patient Total time spent is greater than 50% in coordination of care (as documented) at patient's floor/unit and/or counseling patient: Internal Medicine: Result - Labs CBC & Chem 7: 04/09/19 01:20 04/09/19 01:20 Labs: Short CBC 04/08/19 04/09/19 Range/Units 16:35 01:20 WBC 5.0 4.8 (4.3-11.1) K/mcL Hgb 12.4 11.2 L (11.5-15.4) g/dL Hct 39.0 34.5 L (35.3-44.9) % Plt Count 173 155 (140-400) K/mcL Neutrophils # 3.3 2.8 (1.6-8.9) K/mcL BMP 04/08/19 04/09/19 16:35 01:20 Sodium 137 137 Potassium 4.4 3.8 Chloride 104 107 Carbon Dioxide 25 23 BUN 31 H 30 H Creatinine 1.83 H 1.66 H Glucose 106 H 99 Calcium 9.6 9.0 Cardiac Enzymes 04/08/19 04/08/19 04/09/19 Range/Units 16:35 22:17 01:20 Troponin I 0.03 0.03 0.04 H* (< 0.04) ng/mL 04/09/19 Range/Units 08:07 Troponin I 0.04 H* (< 0.04) ng/mL - ABG Interpretation ABG results: PT/INR, D-dimer PT 32.8 Seconds (9.4-12.1) H 04/09/19 01:20 - Impressions Impressions Chest X-Ray 04/08/19 16:25 IMPRESSION: No evidence for acute cardiopulmonary process. D/ / Irving Alston MD / Irving Alston MD Interpreting Provider: Irving Alston MD Consult Discharge Plan - Plan Referrals: Adalberto Quijano MD [Primary Care Provider] - (1) Chest pain Qualifiers: Chest pain type: chest pain due to myocardial ischemia Ischemic chest pain type: other angina pectoris type Qualified Code(s): I20.8 - Other forms of angina pectoris (2) CAD (coronary artery disease) Qualifiers: Coronary Disease-Associated Artery/Lesion type: [place] artery [place] vs. transplanted heart: [place] heart Associated angina: with stable angina Qualified Code(s): I25.118 - Atherosclerotic heart disease of [place] coronary artery with other forms of angina pectoris (4) Combined systolic and diastolic congestive heart failure Qualifiers: Qualified Code(s): I50.43 - Acute on chronic combined systolic (congestive) and diastolic (congestive) heart failure (5) Atrial fibrillation Qualifiers: Atrial fibrillation type: chronic Qualified Code(s): I48.2 - Chronic atrial f ibrillation
[2019-04-09] MEDS ORDERED: *HR* Warfarin 1 MG TABLET PO ONE (18:00)
[2019-04-09] MEDS ORDERED: Warfarin perPT PO PRN (18:00)
[2019-04-09] MEDS: traZODone 50 MG TABLET PO PRN (20:40)
[2019-04-09] MEDS ORDERED: Insulin DETEMIR 100 UNIT/ML X5UNITS SQ SCH (21:00)
[2019-04-09] MEDS ORDERED: Insulin LISPRO 300 UNITS/3 ML VIAL SQ SCH (21:00)
[2019-04-10 07:40] LABS: INR 2.5; Prothrombin Time 28.8 Seconds (9.4-12.1)
[2019-04-10] MEDS: Diltiazem CD (24hr) 240 MG CAPSULE PO SCH (08:19)
[2019-04-10] MEDS: Insulin LISPRO 300 UNITS/3 ML VIAL SQ SCH ×3 (08:19→15:29)
[2019-04-10] MEDS: Ranolazine 500 MG TAB.ER.12H PO SCH (08:19)
[2019-04-10] MEDS: *HR* Amiodarone 200 MG TABLET PO SCH (08:19)
[2019-04-10] MEDS: Spironolactone 25 MG TABLET PO SCH (08:19)
[2019-04-10] MEDS: Isosorbide MONOnitrate (24 HR) 60 MG TAB.ER.24H PO SCH (08:19)
--- NOTE | 2019-04-10 11:02 | Event Note ---
Date of Encounter: 04/10/19 Time of Encounter: 11:01 - Cardiology Event Note Patient is awaiting [employer] to make device setting changes due to desynchronization of a/v in MVP mode. Per RN, they have not been in to adjust. RN will call [employer]. TTE pending. Per , after device setting changes and no significant derrangements on TTE, cardiology will sign off.
--- NOTE | 2019-04-10 13:53 | Internal Med Progress Note ---
Hospitalist Progress Note - Encounter Date of Encounter: 04/10/19 Time of Encounter: 13:51 - Subjective Interval History: Patient is awake and alert. No new complaints. No chest pain. No shortness of breath. - Exam Vitals: Temp Pulse Resp BP Pulse Ox 98.1 F 64 16 108/64 96 04/10/19 11:24 04/10/19 11:24 04/10/19 11:24 04/10/19 11:24 04/10/19 11:24 Exam: General: Patient is alert, no acute distress, oriented x 3 Respiratory: Good respiratory effort. Normal breath sounds. No wheezing or crackles. Cardiovascular: Regular rate and rhythm. s1 and s2 normal No clicks, rubs, gallops, or murmurs. No pedal edema Abdomen: Abdomen is soft, nontender. Bowel sounds are present Musculoskeletal: Spontaneously moving all extremities Skin: warm, dry, intact. Neuro: Alert oriented x 3 normal cranial nerves, no focal deficits - Assessment and Plan (1) Chest pain Current Visit: Yes Status: Acute (2) CAD (coronary artery disease) Current Visit: Yes Status: Chronic (3) CKD (chronic kidney disease), stage III Current Visit: Yes Status: Chronic (4) Combined systolic and diastolic congestive heart failure Current Visit: Yes Status: Chronic (5) Atrial fibrillation Current Visit: Yes Status: Chronic DVT Prophylaxis: On Coumadin - Summary of Assessment and Plan Summary of Assessment and Plan: Chest pain: Echocardiogram done shows EF of 50-55%. No longer having chest pain. Pacemaker: Awaiting device Rep. Was supposed to come to make changes to patient's leads. Coronary artery disease: Continue Plavix, statin. Continue Imdur and Ranexa. Chronic A. fib: Continue the amiodarone. On anticoagulation with Coumadin. INR is therapeutic. Chronic kidney disease stage III: Creatinine 1.66 today. Continue to hold Lasix for now. May resume Lasix in 1-2 days as renal function continues to improve Recommend outpatient follow-up. - Time Spent with Patient Total time spent is greater than 50% in coordination of care (as documented) at patient's floor/unit and/or counseling patient: Internal Medicine: Result - Labs CBC & Chem 7: 04/09/19 01:20 04/09/19 01:20 - ABG Interpretation ABG results: PT/INR, D-dimer PT 28.8 Seconds (9.4-12.1) H 04/10/19 06:25 Consult Discharge Plan - Plan Referrals: Adalberto Quijano MD [Primary Care Provider] - (1) Chest pain Qualifiers: Chest pain type: chest pain due to myocardial ischemia Ischemic chest pain type: other angina pectoris type Qualified Code(s): I20.8 - Other forms of angina pectoris (2) CAD (coronary artery disease) Qualifiers: Coronary Disease-Associated Artery/Lesion type: [place] artery [place] vs. transplanted heart: [place] heart Associated angina: with stable angina Qualified Code(s): I25.118 - Atherosclerotic heart disease of [place] coronary artery with other forms of angina pectoris (4) Combined systolic and diastolic congestive heart failure Qualifiers: Qualified Code(s): I50.43 - Acute on chronic combined systolic (congestive) and diastolic (congestive) heart failure (5) Atrial fibrillation Qualifiers: Atrial fibrillation type: chronic Qualified Code(s): I48.2 - Chronic atrial fibrillation
[2019-04-10 15:27] VITALS: BP 110/65
--- NOTE | 2019-04-10 15:49 | Discharge Summary ---
- NOTES TO OUTPATIENT PROVIDER Notes to Outpatient Provider: Patient with a history of chronic A. fib status post permanent pacemaker, coronary artery disease, chronic kidney disease stage III was hospitalized here after she presented to the ER with complaints of chest discomfort. EKG done in the ER showed ST elevations in diffuse leads but patient had a paced rhythm and as such cardiology was consulted. Per their recommendations, patient was monitored with telemetry and also underwent echocardiogram which showed normal ejection fraction with no wall motion abnormalities. They also recommended that pacemaker device rep make changes to the device setting as there were some abnormalities detected. Patient will be discharged from the hospital once this changes are made. She did have mild acute kidney injury and her Lasix was held. She may resume taking Lasix from tomorrow. Date of Encounter: 04/10/19 Time of Encounter: 15:44 - Discharge Diagnosis (1) Chest pain Priority: Primary Status: Acute Qualifiers: Chest pain type: chest pain due to myocardial ischemia Ischemic chest pain type: other angina pectoris type Qualified Code(s): I20.8 - Other forms of angina pectoris (2) CAD (coronary artery disease) Priority: Secondary Status: Chronic Qualifiers: Coronary Disease-Associated Artery/Lesion type: [place] artery [place] vs. transplanted heart: [place] heart Associated angina: with stable angina Qualified Code(s): I25.118 - Atherosclerotic heart disease of [place] coronary artery with other forms of angina pectoris (3) CKD (chronic kidney disease), stage III Priority: Secondary Status: Chronic (4) Combined systolic and diastolic congestive heart failure Priority: Secondary Status: Chronic Qualifiers: Qualified Code(s): I50.43 - Acute on chronic combined systolic (congestive) and diastolic (congestive) heart failure (5) Atrial fibrillation Priority: Secondary Status: Chronic Qualifiers: Atrial fibrillation type: chronic Qualified Code(s): I48.2 - Chronic atrial fibrillation (6) Pacemaker Priority: Secondary Status: Chronic Hospital course: Ms. Fischer is a 73 year old female Patient with a history of chronic A. fib status post permanent pacemaker, coronary artery disease, chronic kidney disease stage III was hospitalized here after she presented to the ER with complaints of chest discomfort. EKG done in the ER showed ST elevations in diffuse leads but patient had a paced rhythm and as such cardiology was consulted. Per their recommendations, patient was monitored with telemetry and also underwent echocardiogram which showed normal ejection fraction with no wall motion abnormalities. They also recommended that pacemaker device rep make changes to the device setting as there was desynchronization of a/v in MVP mode. Patient will be discharged from the hospital once this changes are made. She did have mild acute kidney injury and her Lasix was held. She may resume taking Lasix from tomorrow. Discharge discussed with: patient - Time Spent with Patient Total time spent providing and/or coordinating discharge services: Time spent: Less than 30 minutes (25 min) - Discharge Medications Prescriptions: Continued Rosuvastatin [Crestor] 40 mg PO QAM Escitalopram [Lexapro] 20 mg PO DAILY Nitroglycerin 0.4 mg SL Q5MIN PRN #0 tab.subl PRN Reason: Chest Pain traZODone [TraZODone] 50 mg PO HS PRN PRN Reason: Sleep Ranolazine [Ranexa] 1,000 mg PO BID Anastrozole [Arimidex] 1 mg PO DAILY Isosorbide MONOnitrate (24 HR) [Imdur] 60 mg PO BID metOLazone [Zaroxolyn] 2.5 mg PO 2XW PRN PRN Reason: Edema Pantoprazole Sodium [Protonix] 40 mg PO DAILY Spironolactone [Aldactone] 25 mg PO DAILY Warfarin [Coumadin] 2 mg PO SUMOWETHFR Amiodarone HCl 200 mg PO DAILY Insulin Glargine,Hum.rec.anlog [Lantus Solostar] 30 unit SQ HS Insulin LISPRO [Humalog Kwikpen U-100] 0 - 10 unit SQ TIDWM Lactulose 10 gm PO DAILY PRN PRN Reason: Constipation Furosemide [Lasix] 20 mg PO BID Semaglutide [Ozempic] 0.25 mg SQ FR Clopidogrel [Plavix] 75 mg PO QAM Diltiazem HCl [Tiazac] 120 mg PO DAILY Docusate Sodium [Dok] 250 mg PO DAILY Meclizine HCl [Verticalm] 25 mg PO DAILY PRN PRN Reason: Dizziness/ NAUSEA Potassium Chloride [Klor-Con 10] 20 meq PO BID Warfarin Sodium 1 mg PO TUSA Home Medications: Escitalopram [Lexapro] 20 mg PO DAILY 05/16/15 [History] Rosuvastatin [Crestor] 40 mg PO QAM 05/16/15 [History] Nitroglycerin 0.4 mg SL Q5MIN PRN #0 tab.subl 07/10/16 [Rx] traZODone [TraZODone] 50 mg PO HS PRN 03/19/17 [History] Ranolazine [Ranexa] 1,000 mg PO BID 01/03/18 [History] Anastrozole [Arimidex] 1 mg PO DAILY 05/14/18 [History] Isosorbide MONOnitrate (24 HR) [Imdur] 60 mg PO BID 05/14/18 [History] Pantoprazole Sodium [Protonix] 40 mg PO DAILY 05/14/18 [History] metOLazone [Zaroxolyn] 2.5 mg PO 2XW PRN 05/14/18 [History] Spironolactone [Aldactone] 25 mg PO DAILY 01/11/19 [History] Warfarin [Coumadin] 2 mg PO SUMOWETHFR 01/11/19 [History] Amiodarone HCl 200 mg PO DAILY 01/12/19 [History] Furosemide [Lasix] 20 mg PO BID 02/13/19 [History] Insulin Glargine,Hum.rec.anlog [Lantus Solostar] 30 unit SQ HS 02/13/19 [History] Insulin LISPRO [Humalog Kwikpen U-100] 0 - 10 unit SQ TIDWM 02/13/19 [History] Lactulose 10 gm PO DAILY PRN 02/13/19 [History] Semaglutide [Ozempic] 0.25 mg SQ FR 04/08/19 [History] Clopidogrel [Plavix] 75 mg PO QAM 04/10/19 [History] Diltiazem HCl [Tiazac] 120 mg PO DAILY 04/10/19 [History] Docusate Sodium [Dok] 250 mg PO DAILY 04/10/19 [History] Meclizine HCl [Verticalm] 25 mg PO DAILY PRN 04/10/19 [History] Potassium Chloride [Klor-Con 10] 20 meq PO BID 04/10/19 [History] Warfarin Sodium 1 mg PO TUSA 04/10/19 [History] Allergies/Adverse Reactions: Allergy/AdvReac Type Severity Reaction Status Date / Time phenylbutazone Allergy Rash Verified 05/14/18 14:15 [From Butazolidin] amitriptyline [From Elavil] AdvReac Headache Verified 05/14/18 14:15 codeine AdvReac Headache Verified 05/14/18 14:15 desipramine AdvReac Headache Verified 05/14/18 14:15 lisinopril AdvReac Cough Verified 05/14/18 14:15 meperidine [From Demerol] AdvReac Headache Verified 05/14/18 14:15 nalbuphine AdvReac Headache Verified 05/14/18 14:15 Nortriptyline AdvReac Headache Verified 05/14/18 14:15 tiagabine AdvReac Headache Verified 05/14/18 14:15 Date of admission: 04/08/19 19:27 Primary care physician: Adalberto Quijano MD Consults: 04/08/19 18:19 Consult to Cardiology [CONS] Stat Comment: Consulting Provider: Card[facility] [place] Reason for Consult: Pacemaker changes needed - [employer] rep coming 04/09/19 Time Notified: 18:20 Call Completed: Yes Discharging clinician: Bert Parker Anticipated date of discharge: 04/10/19 - Constitutional Vitals: Temp Pulse Resp BP Pulse Ox 98.3 F 66 17 110/65 98 04/10/19 15:26 04/10/19 15:26 04/10/19 15:26 04/10/19 15:26 04/10/19 15:26 Exam: General: Patient is alert, no acute distress, oriented x 3 Respiratory: Good respiratory effort. Normal breath sounds. No wheezing or crackles. Cardiovascular: Regular rate and rhythm. s1 and s2 normal No clicks, rubs, gallops, or murmurs. No pedal edema Abdomen: Abdomen is soft, nontender. Bowel sounds are present Musculoskeletal: Spontaneously moving all extremities Skin: warm, dry, intact. Neuro: Alert oriented x 3 normal cranial nerves, no focal deficits - Patient Status Disposition: Home, Self-Care Condition: Good Functional capacity at discharge: independent ambulation Overall status at discharge: patient is progressing back to baseline - Discharge Instructions Instructions: Atrial Fibrillation (DC), Chest Pain (DC) Follow Up With: Adalberto Quijano MD [Primary Care Provider] - (in 1-2 weeks) Andrew Neville MD [Partnered Physician] - (in 2-3 weeks) - Diet and Activity Activity: increase activity as tolerated Diet: diabetic diet, low fat, low cholesterol, low salt diet
[2019-04-10] MEDS ORDERED: *HR* Warfarin 2 MG TABLET PO ONE (18:00)
--- NOTE | 2019-04-11 14:20 | Electrocardiograph Report ---
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
--- NOTE | 2019-04-12 15:45 | Electrocardiograph Report ---
[place] [id number] Test Date: 2019-04-08 Pat Name: Miriam Fischer Department: EXAM19 Room: 2A43 Gender: Decker Operator: : 1945 Requested By: Cherelle Alfredo Order Number: [id number] Reading MD: Andrew Neville Measurements Intervals [place] Rate: 75 P: [place]: 292 QRS: -83 QRSD: 158 T: 99 QT: 528 QTc: 582 Interpretive Statements Dual chamber pacemaker with probable MVP mode PACs with pacemaker undersensing and intermittent fusion. Prolonged [place] interval LBBB Borderline T abnormalities, lateral leads Electronically Signed On 04-12-2019 15:44:18 EDT by Andrew Neville
== END 2019-04-10 17:48 | disposition home or self-care (01) ==
LOC: 2ANU 16:17 → EMEROOARM 16:17 → SUATTDRO 19:27 → 2ANU 20:31
PROVIDERS: ADMIT Pediatrics; ATTEND Internal Medicine

== ENCOUNTER 2019-04-16 17:38 | Observation (INO) ==
--- NOTE | 2019-04-16 17:57 | Emergency Department Note ---
Disposition Clinical Impression: Action tremor Disposition: Still a Patient Condition: Fair Referrals: NONE,PCP [Primary Care Provider] - Forms: ED Satisfaction Letter, Work/School Release Time of Disposition: 19:22 General Adult HPI - General Chief complaint: ED General Medical Stated complaint: Full body tremors Time Seen by Provider: 04/16/19 17:39 Source: patient Nursing Notes Reviewed: Yes Vital Signs Reviewed: Yes - History of Present Illness Pain Scale: 2 - Related Data Home Medications Medication Instructions Recorded Confirmed Escitalopram [Lexapro] 20 mg PO DAILY 05/16/15 04/16/19 Rosuvastatin [Crestor] 40 mg PO QAM 05/16/15 04/16/19 traZODone [TraZODone] 50 mg PO HS PRN 03/19/17 04/16/19 Ranolazine [Ranexa] 1,000 mg PO BID 01/03/18 04/16/19 Anastrozole [Arimidex] 1 mg PO DAILY 05/14/18 04/16/19 Isosorbide MONOnitrate (24 HR) 60 mg PO BID 05/14/18 04/16/19 [Imdur] Pantoprazole Sodium [Protonix] 40 mg PO DAILY 05/14/18 04/16/19 metOLazone [Zaroxolyn] 2.5 mg PO 2XW PRN 05/14/18 04/16/19 Spironolactone [Aldactone] 25 mg PO DAILY 01/11/19 04/16/19 Warfarin [Coumadin] 2 mg PO SUMOWETHFR 01/11/19 04/16/19 Amiodarone HCl 200 mg PO DAILY 01/12/19 04/16/19 Furosemide [Lasix] 20 mg PO DAILY 02/13/19 04/16/19 Insulin Glargine,Hum.rec.anlog 30 unit SQ HS 02/13/19 04/16/19 [Lantus Solostar] Insulin LISPRO [Humalog Kwikpen 0 unit SQ TIDWM 02/13/19 04/16/19 U-100] Lactulose 10 gm PO Q72H PRN 02/13/19 04/16/19 Semaglutide [Ozempic] 0.25 mg SQ FR 04/08/19 04/16/19 Clopidogrel [Plavix] 75 mg PO QAM 04/10/19 04/16/19 Diltiazem HCl [Tiazac] 120 mg PO DAILY 04/10/19 04/16/19 Potassium Chloride [Klor-Con 10] 20 meq PO BID 04/10/19 04/16/19 Docusate [Colace] 100 mg PO DAILY PRN 04/16/19 04/16/19 Gabapentin [Neurontin] 300 mg PO BID 04/16/19 04/16/19 Magnesium Citrate [Citroma] 150 ml PO PRN PRN 04/16/19 04/16/19 Warfarin [Coumadin] 1 mg PO TUSA 04/16/19 04/16/19 Previous Rx's Medication Instructions Recorded Nitroglycerin 0.4 mg SL Q5MIN PRN #0 tab.subl 07/10/16 Allergies Allergy/AdvReac Type Severity Reaction Status Date / Time phenylbutazone Allergy Rash Verified 05/14/18 14:15 [From Butazolidin] amitriptyline [From Elavil] AdvReac Headache Verified 05/14/18 14:15 codeine AdvReac Headache Verified 05/14/18 14:15 desipramine AdvReac Headache Verified 05/14/18 14:15 lisinopril AdvReac Cough Verified 05/14/18 14:15 meperidine [From Demerol] AdvReac Headache Verified 05/14/18 14:15 nalbuphine AdvReac Headache Verified 05/14/18 14:15 Nortriptyline AdvReac Headache Verified 05/14/18 14:15 tiagabine AdvReac Headache Verified 05/14/18 14:15 Past Medical History - Past Medical History Medical history: Reports: arthritis, atrial fibrillation, cancer, CHF, coronary artery disease, CVA, diabetes, GERD, hypertension, renal disease, other Surgical history: Reports: breast surgery Psychiatric history: Reports: depression, other 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 - Social History Smoking Status: Never smoker Smokeless Tobacco Status: No Alcohol use: Reports: none Drug use: Reports: none Physical Exam - General General appearance: alert Course Vital Signs Temperature 98.1 F 04/16/19 17:47 Pulse Rate 60 04/16/19 17:47 Respiratory Rate 18 04/16/19 17:47 Blood Pressure 128/97 04/16/19 17:47 O2 Sat by Pulse Oximetry 97 04/16/19 17:47 Temperature 98.1 F 04/16/19 17:47 Pulse Rate 85 04/16/19 18:41 Respiratory Rate 18 04/16/19 18:41 Blood Pressure 128/97 04/16/19 18:41 O2 Sat by Pulse Oximetry 100 04/16/19 18:41 Oxygen Delivery Oxygen Delivery Room Air Medical Decision Making - MDM Narrative Medical decision making narrative: 1830 hrs.: Patient's gets here he says that they were having sex a sinus occurred this is happened before. He cities they put oxygen on her and this goes away. With histories of stroke in the past we will order a CT her head also. They are in agreement with plan. 1920 hrs. still waiting on labs and CT. I am a sign her out to Dr. Cole evening ER physician for further management disposition. Patient's in agreement with plan and is doing much better. - Lab Data Result diagrams: 04/16/19 18:18 04/16/19 18:18 Lab Results 04/16/19 04/16/19 04/16/19 Range/Units 18:18 18:18 19:04 WBC 9.5 (4.3-11.1) K/mcL RBC 4.57 (3.82-4.97) M/mcL Hgb 12.0 (11.5-15.4) g/dL Hct 38.7 (35.3-44.9) % MCV 84.7 (83.0-100.0) fL MCH 26.3 L (28.0-33.3) pg MCHC 31.0 L (31.6-35.5) g/dL RDW 13.6 (11.5-14.5) % Plt Count 191 (140-400) K/mcL MPV 10.5 (9.4-12.4) fL Immature Gran % 0.5 (0-4) % Seg Neutrophils % 86.1 % Lymphocytes % 7.4 % Monocytes % 5.3 % Eosinophils % 0.6 % Basophils % 0.1 % Neutrophils # 8.1 (1.6-8.9) K/mcL Lymphocytes # 0.7 (0.6-4.6) K/mcL Monocytes # 0.5 (0.0-1.3) K/mcL Eosinophils # 0.1 (0.0-0.6) K/mcL Basophils # 0.0 (0.0-0.2) K/mcL Sodium 135 L (136-145) mEq/L Potassium 4.7 (3.5-5.1) mEq/L Chloride 101 (98-107) mEq/L Carbon Dioxide 24 (23-29) mEq/L BUN 52 H (8-23) mg/dL Creatinine 2.05 H (0.60-1.20) mg/dL Est GFR ( Amer) 29 L (> 60) Est GFR (Non-Af Amer) 24 L (> 60) BUN/Creatinine Ratio 25 (6-26) Glucose 148 H (70-105) mg/dL POC Glucose (70-99) mg/dL Calculated Osmolality 297 (280-300) Calcium 9.6 (8.6-10.3) mg/dL Ammonia 30 (16-53) mcmol/L TSH 5.350 (0.340-5.600) mcIU/mL Urine Color (Yellow) Urine Clarity (Clear) Urine pH (5.0-8.0) pH Units Ur Specific Burna (1.010-1.025) Urine Protein (Neg-Trace) mg/dL Urine Glucose (UA) (Normal) mg/dL Urine Ketones (Negative) mg/dL Urine Blood (Negative) Urine Nitrite (Negative) Urine Bilirubin (Negative) Urine Urobilinogen (Normal) mg/dL Ur Leukocyte Esterase (Negative) Urine Opiates Screen (Zlbpfv=577) ng/mL Ur Buprenorphine Scrn (Cutoff=5) ng/mL Ur Barbiturates Screen (Mefutg=380) ng/mL Ur Phencyclidine Scrn (Cutoff=25) ng/mL Ur Amphetamines Screen (Ynpwxu=4444) ng/mL U Benzodiazepines Scrn (Vgorrc=007) ng/mL Urine Cocaine Screen (Cutoff= 300) ng/mL U Marijuana (THC) Screen (Cutoff = 50) ng/mL Ur Drug Screen Interp 04/16/19 04/16/19 04/16/19 Range/Units 19:14 19:18 19:19 WBC (4.3-11.1) K/mcL RBC (3.82-4.97) M/mcL Hgb (11.5-15.4) g/dL Hct (35.3-44.9) % MCV (83.0-100.0) fL MCH (28.0-33.3) pg MCHC (31.6-35.5) g/dL RDW (11.5-14.5) % Plt Count (140-400) K/mcL MPV (9.4-12.4) fL Immature Gran % (0-4) % Seg Neutrophils % % Lymphocytes % % Monocytes % % Eosinophils % % Basophils % % Neutrophils # (1.6-8.9) K/mcL Lymphocytes # (0.6-4.6) K/mcL Monocytes # (0.0-1.3) K/mcL Eosinophils # (0.0-0.6) K/mcL Basophils # (0.0-0.2) K/mcL Sodium (136-145) mEq/L Potassium (3.5-5.1) mEq/L Chloride (98-107) mEq/L Carbon Dioxide (23-29) mEq/L BUN (8-23) mg/dL Creatinine (0.60-1.20) mg/dL Est GFR ( Amer) (> 60) Est GFR (Non-Af Amer) (> 60) BUN/Creatinine Ratio (6-26) Glucose (70-105) mg/dL POC Glucose 172 H (70-99) mg/dL Calculated Osmolality (280-300) Calcium (8.6-10.3) mg/dL Ammonia (16-53) mcmol/L TSH (0.340-5.600) mcIU/mL Urine Color Yellow (Yellow) Urine Clarity Clear (Clear) Urine pH 6.0 (5.0-8.0) pH Units Ur Specific Burna 1.010 (1.010-1.025) Urine Protein Negative (Neg-Trace) mg/dL Urine Glucose (UA) Normal (Normal) mg/dL Urine Ketones Negative (Negative) mg/dL Urine Blood Negative (Negative) Urine Nitrite Negative (Negative) Urine Bilirubin Negative (Negative) Urine Urobilinogen Normal (Normal) mg/dL Ur Leukocyte Esterase Small H (Negative) Urine Opiates Screen Negative (Maeqdq=263) ng/mL Ur Buprenorphine Scrn Negative (Cutoff=5) ng/mL Ur Barbiturates Screen Negative (Kuncnc=277) ng/mL Ur Phencyclidine Scrn Negative (Cutoff=25) ng/mL Ur Amphetamines Screen Negative (Grbvmd=7931) ng/mL U Benzodiazepines Scrn Negative (Wmiobe=138) ng/mL Urine Cocaine Screen Negative (Cutoff= 300) ng/mL U Marijuana (THC) Screen Negative (Cutoff = 50) ng/mL Ur Drug Screen Interp See Below Attestation Statement - Attestation Attestation: This documentation is done with the assistance of Dragon dictation. Despite efforts made to ensure accuracy, there may be inaccuracies in panel fitter or spelling and typographical errors. I examined this patient and my medical decision-making was reviewed with the Resident Physician. I agree with the documented findings, disposition and treatment plan as described except to the extent set forth below. Patient was seen and evaluated by Dr. Cadet, I agree with their evaluation and management plan, I supervised care the patient's stay. Patient presents today by EMS with increased shakes. Her son said this happens all the time and he can feel what causes it. He says using by the time the squad get so they go away but persisted. Squad notes the more stress she gets the worse it gets this happens in her legs and her arms but is worse in her arms or legs. She is fully awake and mentating I do not think this is a seizure. This seems to be more associated with stress Charan underwent her comes in this gets worse when she is relaxed he gets better. We will order a workup on her I look through her charts see if this is been reported by neurology or she has been seen by her neurology before but I do not find that in her chart at this time. I reviewed the residents documentation and agree with the residents assessment and plan of care. I have personally had face to face time with the patient. (Brief History, Brief Exam, and MDM) I personally supervised and was present for the arreola/critical portions of the following procedures completed by the resident: EKG was interpreted by the resident under my supervision, I agree with their interpretation.
[2019-04-16] MEDS ORDERED: *HR* LORazepam 2 MG/ML VIAL IVP ONE (18:00)
--- NOTE | 2019-04-16 18:25 | Emergency Department Note ---
Disposition Clinical Impression: Action tremor Disposition: Still a Patient Condition: Fair Referrals: NONE,PCP [Primary Care Provider] - Forms: ED Satisfaction Letter, Work/School Release Time of Disposition: 19:50 General Adult HPI - General Chief complaint: ED General Medical Stated complaint: Full body tremors Time Seen by Provider: 04/16/19 17:39 Source: patient Limitations: no limitations Nursing Notes Reviewed: Yes Vital Signs Reviewed: Yes - History of Present Illness HPI Narrative: Female patient presenting to the emergency department with her for tremors. Patient does have history of this. Has been states that it started while they were having sex today. He states that she was acting a little off prior to the sexual encounter. This is happened to her before. The has been states that generally the patient on oxygen she starts to feel better. States that she has just been shaking. She is able to stop shaking and toxemia times. She is able to track me throughout the room. She however will not follow my commands when asked. Lung sounds are clear heart is normal abdomen is soft nontender. He does state that she was seen by neurology this week and had a CT of her head. States that they placed her on gabapentin which started yesterday. He denies any recent illnesses for her. States that she did was here couple weeks ago for chest pain but was not complaining about today. Patient does have a history of CVA as well as NM. Pain Scale: 2 - Related Data Home Medications Medication Instructions Recorded Confirmed Escitalopram [Lexapro] 20 mg PO DAILY 05/16/15 04/16/19 Rosuvastatin [Crestor] 40 mg PO QAM 05/16/15 04/16/19 traZODone [TraZODone] 50 mg PO HS PRN 03/19/17 04/16/19 Ranolazine [Ranexa] 1,000 mg PO BID 01/03/18 04/16/19 Anastrozole [Arimidex] 1 mg PO DAILY 05/14/18 04/16/19 Isosorbide MONOnitrate (24 HR) 60 mg PO BID 05/14/18 04/16/19 [Imdur] Pantoprazole Sodium [Protonix] 40 mg PO DAILY 05/14/18 04/16/19 metOLazone [Zaroxolyn] 2.5 mg PO 2XW PRN 05/14/18 04/16/19 Spironolactone [Aldactone] 25 mg PO DAILY 01/11/19 04/16/19 Warfarin [Coumadin] 2 mg PO SUMOWETHFR 01/11/19 04/16/19 Amiodarone HCl 200 mg PO DAILY 01/12/19 04/16/19 Furosemide [Lasix] 20 mg PO DAILY 02/13/19 04/16/19 Insulin Glargine,Hum.rec.anlog 30 unit SQ HS 02/13/19 04/16/19 [Lantus Solostar] Insulin LISPRO [Humalog Kwikpen 0 unit SQ TIDWM 02/13/19 04/16/19 U-100] Lactulose 10 gm PO Q72H PRN 02/13/19 04/16/19 Semaglutide [Ozempic] 0.25 mg SQ FR 04/08/19 04/16/19 Clopidogrel [Plavix] 75 mg PO QAM 04/10/19 04/16/19 Diltiazem HCl [Tiazac] 120 mg PO DAILY 04/10/19 04/16/19 Potassium Chloride [Klor-Con 10] 20 meq PO BID 04/10/19 04/16/19 Docusate [Colace] 100 mg PO DAILY PRN 04/16/19 04/16/19 Gabapentin [Neurontin] 300 mg PO BID 04/16/19 04/16/19 Magnesium Citrate [Citroma] 150 ml PO PRN PRN 04/16/19 04/16/19 Warfarin [Coumadin] 1 mg PO TUSA 04/16/19 04/16/19 Previous Rx's Medication Instructions Recorded Nitroglycerin 0.4 mg SL Q5MIN PRN #0 tab.subl 07/10/16 Allergies Allergy/AdvReac Type Severity Reaction Status Date / Time phenylbutazone Allergy Rash Verified 05/14/18 14:15 [From Butazolidin] amitriptyline [From Elavil] AdvReac Headache Verified 05/14/18 14:15 codeine AdvReac Headache Verified 05/14/18 14:15 desipramine AdvReac Headache Verified 05/14/18 14:15 lisinopril AdvReac Cough Verified 05/14/18 14:15 meperidine [From Demerol] AdvReac Headache Verified 05/14/18 14:15 nalbuphine AdvReac Headache Verified 05/14/18 14:15 Nortriptyline AdvReac Headache Verified 05/14/18 14:15 tiagabine AdvReac Headache Verified 05/14/18 14:15 Limitations: ROS unobtainable due to patients medical condition (Patient will not answer my questions.) Past Medical History - Past Medical History Medical history: Reports: arthritis, atrial fibrillation, cancer, CHF, coronary artery disease, CVA, diabetes, GERD, hypertension, renal disease, other Surgical history: Reports: breast surgery Psychiatric history: Reports: depression, 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 Tremors all over. These do stop and she does track me whenever I am in the room.) - Head Head exam: atraumatic, normocephalic, normal inspection - Eye Eye exam: Present: normal appearance, PERRL, EOMI. Absent: scleral icterus - ENT ENT exam: normal exam, normal oropharynx, mucous membranes moist - Neck Neck exam: Present: normal inspection, full ROM, trachea midline - Chest Chest inspection: Present: normal inspection, symmetric chest wall rise. Absent: tenderness - Respiratory Respiratory exam: Present: normal lung sounds bilaterally. Absent: respiratory distress, accessory muscle use - Cardiovascular Cardiovascular exam: Present: regular rate, normal rhythm, normal heart sounds - Abdominal Exam Abdominal exam: Present: soft, Non-Tender. Absent: tenderness, distention, guarding, rebound, rigidity, organomegaly, Manning's sign, Rovsing's sign, tenderness at McBurney's Point - Extremities Exam Extremities exam: Present: normal inspection, full ROM, normal capillary refill. Absent: tenderness, pedal edema, calf tenderness - Back Exam Back exam: Present: normal inspection, full ROM. Absent: tenderness - Neurological Exam Neurological exam: Present: alert, other (Patient moving all 4 extremities equally. No facial droop. Is able to track me throughout the room. This is her eyelids well and will not allow me to open them.) - Skin Skin exam: Present: warm, dry, intact, normal color. Absent: rash, cyanosis, diaphoresis Course Course Narrative: Patient not following my commands. Protecting her airway well. states that she has not had any shortness of breath or chest pain today. States it started intracoitall. He states that this has happened to her several times before. Vital Signs Temperature 98.1 F 04/16/19 17:47 Pulse Rate 60 04/16/19 17:47 Respiratory Rate 18 04/16/19 17:47 Blood Pressure 128/97 04/16/19 17:47 O2 Sat by Pulse Oximetry 97 04/16/19 17:47 Temperature 98.1 F 04/16/19 17:47 Pulse Rate 60 04/16/19 17:47 Respiratory Rate 18 04/16/19 17:47 Blood Pressure 128/97 04/16/19 17:47 O2 Sat by Pulse Oximetry 97 04/16/19 17:47 Oxygen Delivery Oxygen Delivery Room Air Medical Decision Making - Lab Data Result diagrams: 04/16/19 18:18 04/16/19 18:18
[2019-04-16 19:02] LABS: Basophils % 0.1 %; Eosinophils # 0.1 K/mcL (0.0-0.6); Eosinophils % 0.6 %; Hematocrit 38.7 % (35.3-44.9); Immature Granulocytes % 0.5 % (0-4); Lymphocytes # 0.7 K/mcL (0.6-4.6); Lymphocytes % 7.4 %; Mean Corpuscular Hemoglobin 26.3 pg (28.0-33.3); Mean Corpuscular Volume 84.7 fL (83.0-100.0); Mean Platelet Volume 10.5 fL (9.4-12.4); Monocytes # 0.5 K/mcL (0.0-1.3); Monocytes % 5.3 %; Neutrophils # 8.1 K/mcL (1.6-8.9); Platelet Count 191 K/mcL (140-400); Red Blood Count 4.57 M/mcL (3.82-4.97); Red Cell Distribution Width 13.6 % (11.5-14.5); Segmented Neutrophils % 86.1 %; White Blood Count 9.5 K/mcL (4.3-11.1)
[2019-04-16 19:22] LABS: Calcium 9.6 mg/dL (8.6-10.3); Potassium 4.7 mEq/L (3.5-5.1)
[2019-04-16 19:26] LABS: Bilirubin,Urine Negative (Negative); Blood,Urine Negative (Negative); Clarity,Urine Clear (Clear); Color,Urine Yellow (Yellow); Glucose,Urine (UA) Normal (Normal); Ketones,Urine Negative (Negative); Leukocyte Esterase,Urine Small (Negative); Nitrite,Urine Negative (Negative); Protein,Urine Negative (Neg-Trace); Urobilinogen,Urine Normal (Normal)
[2019-04-16 19:30] LABS: Bacteria,Urine None Seen per hpf (None-Few); RBC,Urine 0-3 per hpf (0-3); Squamous Epithelial Cell,Urine Many per lpf (None-Few)
[2019-04-16 19:35] LABS: Thyroid Stimulating Hormone 5.35 mcIU/mL (0.340-5.600)
[2019-04-16 19:38] LABS: Amphetamine Screen,Urine Negative ng/mL (Cutoff=1000); Barbiturate Screen,Urine Negative ng/mL (Cutoff=200); Benzodiazepines Screen,Urine Negative ng/mL (Cutoff=200); Cannabinoid Screen,Urine Negative ng/mL (Cutoff = 50); Cocaine Screen,Urine Negative ng/mL (Cutoff= 300); Opiate Screen,Urine Negative ng/mL (Cutoff=300); Phencyclidine Screen,Urine Negative ng/mL (Cutoff=25)
[2019-04-16 19:48] LABS: Alanine Aminotransferase 39 Units/L (7-52); Albumin 4.4 g/dL (3.5-5.7); Albumin/Globulin Ratio 1.8 (1.1-2.2); Alkaline Phosphatase 63 Units/L (34-104); Aspartate Amino Transferase 22 Units/L (13-39); Bilirubin,Direct 0.1 mg/dL (0.0-0.2); Bilirubin,Indirect 0.3 mg/dL (0.0-1.2); Bilirubin,Total 0.4 mg/dL (0.3-1.0); Ethanol < 10 mg/dL (Less than 10); Globulin 2.5 g/dL (2.4-3.5); Total Protein 6.9 g/dL (6.4-8.9); Troponin I 0.04 ng/mL (< 0.04)
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
--- NOTE | 2019-04-16 21:40 | Emergency Department Note ---
Disposition Clinical Impression: Action tremor [id number] kidney injury Qualifiers: Acute renal failure type: unspecified Chronic kidney disease stage: unspecified stage Qualified Code(s): N17.9 - Acute kidney failure, unspecified; N18.9 - Chronic kidney disease, unspecified Altered mental status Qualifiers: Altered mental status type: unspecified Qualified Code(s): R41.82 - Altered mental status, unspecified Disposition: Admitted As Inpatient Condition: Fair Time of Disposition: 21:39 General Adult HPI - General Chief complaint: ED General Medical Stated complaint: Full body tremors Time Seen by Provider: 04/16/19 17:39 Source: patient Limitations: no limitations Nursing Notes Reviewed: Yes Vital Signs Reviewed: Yes - History of Present Illness Pain Scale: 0 - Related Data Home Medications Medication Instructions Recorded Confirmed Escitalopram [Lexapro] 20 mg PO DAILY 05/16/15 04/16/19 Rosuvastatin [Crestor] 40 mg PO QAM 05/16/15 04/16/19 traZODone [TraZODone] 50 mg PO HS PRN 03/19/17 04/16/19 Ranolazine [Ranexa] 1,000 mg PO BID 01/03/18 04/16/19 Anastrozole [Arimidex] 1 mg PO DAILY 05/14/18 04/16/19 Isosorbide MONOnitrate (24 HR) 60 mg PO BID 05/14/18 04/16/19 [Imdur] Pantoprazole Sodium [Protonix] 40 mg PO DAILY 05/14/18 04/16/19 metOLazone [Zaroxolyn] 2.5 mg PO 2XW PRN 05/14/18 04/16/19 Spironolactone [Aldactone] 25 mg PO DAILY 01/11/19 04/16/19 Warfarin [Coumadin] 2 mg PO SUMOWETHFR 01/11/19 04/16/19 Amiodarone HCl 200 mg PO DAILY 01/12/19 04/16/19 Furosemide [Lasix] 20 mg PO DAILY 02/13/19 04/16/19 Insulin Glargine,Hum.rec.anlog 30 unit SQ HS 02/13/19 04/16/19 [Lantus Solostar] Insulin LISPRO [Humalog Kwikpen 0 unit SQ TIDWM 02/13/19 04/16/19 U-100] Lactulose 10 gm PO Q72H PRN 02/13/19 04/16/19 Semaglutide [Ozempic] 0.25 mg SQ FR 04/08/19 04/16/19 Clopidogrel [Plavix] 75 mg PO QAM 04/10/19 04/16/19 Diltiazem HCl [Tiazac] 120 mg PO DAILY 04/10/19 04/16/19 Potassium Chloride [Klor-Con 10] 20 meq PO BID 04/10/19 04/16/19 Docusate [Colace] 100 mg PO DAILY PRN 04/16/19 04/16/19 Gabapentin [Neurontin] 300 mg PO BID 04/16/19 04/16/19 Magnesium Citrate [Citroma] 150 ml PO PRN PRN 04/16/19 04/16/19 Warfarin [Coumadin] 1 mg PO TUSA 04/16/19 04/16/19 Previous Rx's Medication Instructions Recorded Nitroglycerin 0.4 mg SL Q5MIN PRN #0 tab.subl 07/10/16 Allergies Allergy/AdvReac Type Severity Reaction Status Date / Time phenylbutazone Allergy Rash Verified 05/14/18 14:15 [From Butazolidin] amitriptyline [From Elavil] AdvReac Headache Verified 05/14/18 14:15 codeine AdvReac Headache Verified 05/14/18 14:15 desipramine AdvReac Headache Verified 05/14/18 14:15 lisinopril AdvReac Cough Verified 05/14/18 14:15 meperidine [From Demerol] AdvReac Headache Verified 05/14/18 14:15 nalbuphine AdvReac Headache Verified 05/14/18 14:15 Nortriptyline AdvReac Headache Verified 05/14/18 14:15 tiagabine AdvReac Headache Verified 05/14/18 14:15 Past Medical History - Past Medical History Medical history: Reports: arthritis, atrial fibrillation, cancer, CHF, coronary artery disease, CVA, diabetes, GERD, hypertension, renal disease, other Surgical history: Reports: breast surgery Psychiatric history: Reports: depression, other 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 Tremors all over. These do stop and she does track me whenever I am in the room.) Course Vital Signs Temperature 98.1 F 04/16/19 17:47 Pulse Rate 60 04/16/19 17:47 Respiratory Rate 18 04/16/19 17:47 Blood Pressure 128/97 04/16/19 17:47 O2 Sat by Pulse Oximetry 97 04/16/19 17:47 Temperature 98.1 F 04/16/19 17:47 Pulse Rate 62 04/16/19 20:49 Respiratory Rate 15 04/16/19 20:49 Blood Pressure 173/104 04/16/19 20:49 O2 Sat by Pulse Oximetry 100 04/16/19 20:49 Oxygen Delivery Oxygen Delivery Room Air Medical Decision Making - Medical Records Medical records reviewed: Yes I reviewed the patient's medical records. - Lab Data Lab results reviewed: Yes I reviewed the patient's lab results. Result diagrams: 04/16/19 18:18 04/16/19 18:18 Lab Results 04/16/19 04/16/19 04/16/19 Range/Units 18:18 18:18 18:18 WBC 9.5 (4.3-11.1) K/mcL RBC 4.57 (3.82-4.97) M/mcL Hgb 12.0 (11.5-15.4) g/dL Hct 38.7 (35.3-44.9) % MCV 84.7 (83.0-100.0) fL MCH 26.3 L (28.0-33.3) pg MCHC 31.0 L (31.6-35.5) g/dL RDW 13.6 (11.5-14.5) % Plt Count 191 (140-400) K/mcL MPV 10.5 (9.4-12.4) fL Immature Gran % 0.5 (0-4) % Seg Neutrophils % 86.1 % Lymphocytes % 7.4 % Monocytes % 5.3 % Eosinophils % 0.6 % Basophils % 0.1 % Neutrophils # 8.1 (1.6-8.9) K/mcL Lymphocytes # 0.7 (0.6-4.6) K/mcL Monocytes # 0.5 (0.0-1.3) K/mcL Eosinophils # 0.1 (0.0-0.6) K/mcL Basophils # 0.0 (0.0-0.2) K/mcL Sodium 135 L (136-145) mEq/L Potassium 4.7 (3.5-5.1) mEq/L Chloride 101 (98-107) mEq/L Carbon Dioxide 24 (23-29) mEq/L BUN 52 H (8-23) mg/dL Creatinine 2.05 H (0.60-1.20) mg/dL Est GFR ( Amer) 29 L (> 60) Est GFR (Non-Af Amer) 24 L (> 60) BUN/Creatinine Ratio 25 (6-26) Glucose 148 H (70-105) mg/dL POC Glucose (70-99) mg/dL Calculated Osmolality 297 (280-300) Calcium 9.6 (8.6-10.3) mg/dL Total Bilirubin (0.3-1.0) mg/dL Direct Bilirubin (0.0-0.2) mg/dL Indirect Bilirubin (0.0-1.2) mg/dL AST (13-39) Units/L ALT (7-52) Units/L Alkaline Phosphatase (34-104) Units/L Ammonia (16-53) mcmol/L Troponin I (< 0.04) ng/mL B-Natriuretic Peptide 125 H (Less than 100) pg/mL Serum Total Protein (6.4-8.9) g/dL Albumin (3.5-5.7) g/dL Globulin (2.4-3.5) g/dL Albumin/Globulin Ratio (1.1-2.2) TSH 5.350 (0.340-5.600) mcIU/mL Urine Color (Yellow) Urine Clarity (Clear) Urine pH (5.0-8.0) pH Units Ur Specific [place] (1.010-1.025) Urine Protein (Neg-Trace) mg/dL Urine Glucose (UA) (Normal) mg/dL Urine Ketones (Negative) mg/dL Urine Blood (Negative) Urine Nitrite (Negative) Urine Bilirubin (Negative) Urine Urobilinogen (Normal) mg/dL Ur Leukocyte Esterase (Negative) Urine Microscopic RBC (0-3) per hpf Urine Microscopic WBC (0-3) per hpf Ur Squamous Epith Cells (None-Few) per lpf Urine Bacteria (None-Few) per hpf Ur Culture Indicated? (NO) Urine Opiates Screen (Jehvvt=042) ng/mL Ur Buprenorphine Scrn (Cutoff=5) ng/mL Ur Barbiturates Screen (Hrvoeq=101) ng/mL Ur Phencyclidine Scrn (Cutoff=25) ng/mL Ur Amphetamines Screen (Osiekj=3773) ng/mL U Benzodiazepines Scrn (Pprtfb=079) ng/mL Urine Cocaine Screen (Cutoff= 300) ng/mL U Marijuana (THC) Screen (Cutoff = 50) ng/mL Ur Drug Screen Interp Ethyl Alcohol (Less than 10) mg/dL 04/16/19 04/16/19 04/16/19 Range/Units 19:04 19:04 19:14 WBC (4.3-11.1) K/mcL RBC (3.82-4.97) M/mcL Hgb (11.5-15.4) g/dL Hct (35.3-44.9) % MCV (83.0-100.0) fL MCH (28.0-33.3) pg MCHC (31.6-35.5) g/dL RDW (11.5-14.5) % Plt Count (140-400) K/mcL MPV (9.4-12.4) fL Immature Gran % (0-4) % Seg Neutrophils % % Lymphocytes % % Monocytes % % Eosinophils % % Basophils % % Neutrophils # (1.6-8.9) K/mcL Lymphocytes # (0.6-4.6) K/mcL Monocytes # (0.0-1.3) K/mcL Eosinophils # (0.0-0.6) K/mcL Basophils # (0.0-0.2) K/mcL Sodium (136-145) mEq/L Potassium (3.5-5.1) mEq/L Chloride (98-107) mEq/L Carbon Dioxide (23-29) mEq/L BUN (8-23) mg/dL Creatinine (0.60-1.20) mg/dL Est GFR ( Amer) (> 60) Est GFR (Non-Af Amer) (> 60) BUN/Creatinine Ratio (6-26) Glucose (70-105) mg/dL POC Glucose (70-99) mg/dL Calculated Osmolality (280-300) Calcium (8.6-10.3) mg/dL Total Bilirubin 0.4 (0.3-1.0) mg/dL Direct Bilirubin 0.1 (0.0-0.2) mg/dL Indirect Bilirubin 0.3 (0.0-1.2) mg/dL AST 22 (13-39) Units/L ALT 39 (7-52) Units/L Alkaline Phosphatase 63 (34-104) Units/L Ammonia 30 (16-53) mcmol/L Troponin I 0.04 H* (< 0.04) ng/mL B-Natriuretic Peptide (Less than 100) pg/mL Serum Total Protein 6.9 (6.4-8.9) g/dL Albumin 4.4 (3.5-5.7) g/dL Globulin 2.5 (2.4-3.5) g/dL Albumin/Globulin Ratio 1.8 (1.1-2.2) TSH (0.340-5.600) mcIU/mL Urine Color Yellow (Yellow) Urine Clarity Clear (Clear) Urine pH 6.0 (5.0-8.0) pH Units Ur Specific [place] 1.010 (1.010-1.025) Urine Protein Negative (Neg-Trace) mg/dL Urine Glucose (UA) Normal (Normal) mg/dL Urine Ketones Negative (Negative) mg/dL Urine Blood Negative (Negative) Urine Nitrite Negative (Negative) Urine Bilirubin Negative (Negative) Urine Urobilinogen Normal (Normal) mg/dL Ur Leukocyte Esterase Small H (Negative) Urine Microscopic RBC 0-3 (0-3) per hpf Urine Microscopic WBC 5-15 H (0-3) per hpf Ur Squamous Epith Cells Many H (None-Few) per lpf Urine Bacteria None Seen (None-Few) per hpf Ur Culture Indicated? YES A (NO) Urine Opiates Screen (Jtffry=048) ng/mL Ur Buprenorphine Scrn (Cutoff=5) ng/mL Ur Barbiturates Screen (Jhidmw=817) ng/mL Ur Phencyclidine Scrn (Cutoff=25) ng/mL Ur Amphetamines Screen (Znmugi=6243) ng/mL U Benzodiazepines Scrn (Ksypzo=845) ng/mL Urine Cocaine Screen (Cutoff= 300) ng/mL U Marijuana (THC) Screen (Cutoff = 50) ng/mL Ur Drug Screen Interp Ethyl Alcohol < 10 (Less than 10) mg/dL 04/16/19 04/16/19 Range/Units 19:18 19:19 WBC (4.3-11.1) K/mcL RBC (3.82-4.97) M/mcL Hgb (11.5-15.4) g/dL Hct (35.3-44.9) % MCV (83.0-100.0) fL MCH (28.0-33.3) pg MCHC (31.6-35.5) g/dL RDW (11.5-14.5) % Plt Count (140-400) K/mcL MPV (9.4-12.4) fL Immature Gran % (0-4) % Seg Neutrophils % % Lymphocytes % % Monocytes % % Eosinophils % % Basophils % % Neutrophils # (1.6-8.9) K/mcL Lymphocytes # (0.6-4.6) K/mcL Monocytes # (0.0-1.3) K/mcL Eosinophils # (0.0-0.6) K/mcL Basophils # (0.0-0.2) K/mcL Sodium (136-145) mEq/L Potassium (3.5-5.1) mEq/L Chloride (98-107) mEq/L Carbon Dioxide (23-29) mEq/L BUN (8-23) mg/dL Creatinine (0.60-1.20) mg/dL Est GFR ( Amer) (> 60) Est GFR (Non-Af Amer) (> 60) BUN/Creatinine Ratio (6-26) Glucose (70-105) mg/dL POC Glucose 172 H (70-99) mg/dL Calculated Osmolality (280-300) Calcium (8.6-10.3) mg/dL Total Bilirubin (0.3-1.0) mg/dL Direct Bilirubin (0.0-0.2) mg/dL Indirect Bilirubin (0.0-1.2) mg/dL AST (13-39) Units/L ALT (7-52) Units/L Alkaline Phosphatase (34-104) Units/L Ammonia (16-53) mcmol/L Troponin I (< 0.04) ng/mL B-Natriuretic Peptide (Less than 100) pg/mL Serum Total Protein (6.4-8.9) g/dL Albumin (3.5-5.7) g/dL Globulin (2.4-3.5) g/dL Albumin/Globulin Ratio (1.1-2.2) TSH (0.340-5.600) mcIU/mL Urine Color (Yellow) Urine Clarity (Clear) Urine pH (5.0-8.0) pH Units Ur Specific [place] (1.010-1.025) Urine Protein (Neg-Trace) mg/dL Urine Glucose (UA) (Normal) mg/dL Urine Ketones (Negative) mg/dL Urine Blood (Negative) Urine Nitrite (Negative) Urine Bilirubin (Negative) Urine Urobilinogen (Normal) mg/dL Ur Leukocyte Esterase (Negative) Urine Microscopic RBC (0-3) per hpf Urine Microscopic WBC (0-3) per hpf Ur Squamous Epith Cells (None-Few) per lpf Urine Bacteria (None-Few) per hpf Ur Culture Indicated? (NO) Urine Opiates Screen Negative (Kkmxlr=332) ng/mL Ur Buprenorphine Scrn Negative (Cutoff=5) ng/mL Ur Barbiturates Screen Negative (Cbbpzf=280) ng/mL Ur Phencyclidine Scrn Negative (Cutoff=25) ng/mL Ur Amphetamines Screen Negative (Qlxsfa=1806) ng/mL U Benzodiazepines Scrn Negative (Myjjvl=314) ng/mL Urine Cocaine Screen Negative (Cutoff= 300) ng/mL U Marijuana (THC) Screen Negative (Cutoff = 50) ng/mL Ur Drug Screen Interp See Below Ethyl Alcohol (Less than 10) mg/dL - Radiology Data Radiology results reviewed: Yes I reviewed the patient's radiology results. Chest X-Ray 04/16/19 18:16 IMPRESSION: No significant interval change since previous examination. No radiographic evidence of acute cardiopulmonary process. Prominence of interstitial lung markings may be secondary to low lung volumes. Mild interstitial pulmonary edema is not excluded. Correlation with volume status is recommended. D/ / 04/16/2019 19:26:51 Anthony Matias MD / ru Interpreting Provider: Anthony Matias MD Head CT 04/16/19 18:18 IMPRESSION: No acute intracranial abnormality. D/ / Charan Castaneda MD / Charan Castaneda MD Interpreting Provider: Charan Castaneda MD Attestation Statement - Attestation Attestation: I, Flaco Cloe MD, personally evaluated this patient and discussed their management with the resident physician. I reviewed the resident's note and agree with the documented findings, medical decision making, and plan of care. This patient was signed out at shift change from Dr. Cadet and Dr. Blancas. Please refer to their notes for complete details of the history and physical examination. At shift change patient is still awaiting some lab results and a CT of the head. She presented with tremors and thrashing. This apparently has been a recurrent problem in the past but is getting progressively worse. reports that these spells just come in episodes and usually they resolve with oxygen. He reports that usually just last about 15 or 20 minutes but he wants to return home for over an hour today and the symptoms did not resolve so he brought her in. She did receive some Ativan here in the symptoms improved however she is still having involuntary movements of the hands and feet and also is having difficulty speaking. reports this is definitely not her baseline. She was just recently seen by neurology here for some problems with b alance as well as these shaking episodes. She was started on gabapentin and just took her first dose last night and second dose this morning. On examination patient is a well-developed well-nourished elderly female in no acute distress. She is alert but seems confused. She tries to answer some q uestions but speech is difficult to understand. Breath sounds are clear and equal bilaterally. Heart regular rate and rhythm. Abdomen is soft and nontender with present bowel sounds. Labs and imaging reviewed. Dr. Betancur discussed the patient with the neurologist front load trash truck driver, Dr. Qiu. He will consult on the patient in the hospital. The hospitalist, Dr. Kirkpatrick, was consulted and accepted admission of the patient.
[2019-04-16] MEDS ORDERED: Nitroglycerin 0.4 MG TAB.SUBL SL PRN (22:03)
[2019-04-16] MEDS ORDERED: metOLazone 2.5 MG TABLET PO PRN (22:03)
[2019-04-16] MEDS ORDERED: Lactulose 200 GM/300 ML (for enema) RC PRN (22:03)
[2019-04-16] MEDS ORDERED: Lactulose 200 GM, Sodium Chloride IRRigation 700 ML RC PRN (22:28)
--- NOTE | 2019-04-16 22:29 | Internal Med History&Physical ---
Date of Encounter: 04/16/19 Time of Encounter: 22:20 Internal Medicine - H&P: HPI Chief complaint: AMS; Tremors History of present illness: Ms. Fischer is a 73 year old female with a PMHx of Afib, breast cancer, CHF, CAD, CVA x 2, DM, GERD, HTN, CKD III, INEZ, sick sinus syndrome with biventricular pacemaker who presented to ED. of note, patient was recently discharged several weeks ago for evaluation of chest pain with a negative workup. Patient's pacemaker was evaluated and changes were made to the settings. at bedside reports that today during sexual intercourse patient started having generalized shaking and became altered. According to the , this is not new and has happened frequently over the past 3-4 years, typically with sexual activity, most recent episode was approximately one month ago. He will place her on oxygen and BiPAP with clinical improvement typically within 15-20 minutes. However, after one hour of this treatment patient continued to tremor and was less conversive. Patient has had neurological workup for her condition with no definitive diagnosis made. She was recently seen by Dr. Monson outpatient yesterday and started on gabapentin. reports she has has otherwise been in her usual state of health. No reports of seizures. On arrival patient was afebrile, hemodynamically stable with a heart rate in the 60s. O2 saturations 97% on 2 L. Laboratory workup relatively unremarkable. Patient's elevated creatinine appears to be at baseline. Elevated troponin of 0.04 which appears to be chronic. TSH within normal limits. Urine drug screen was negative. Urine clean catch was obtained which showed small leukocyte esterase. CT scan of the head unremarkable. Chest x-ray did not show any acute cardiopulmonary abnormality. Case was discussed with neurology who recommended no further evaluation and would follow-up with the patient if admitted. On my assessment, patient was noted to have frequent twitching in dystonia of her upper and lower extremities. She was alert oriented 3 answering questions appropriately. at bedside stated that she has significantly improved since arrival but is yet to be at baseline in terms of her tremors. 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 breast cancer. stage III renal failure. INEZ. sick sinus surgery Psychiatric history: depression, other - Past Surgical History Surgical History: breast surgery Additional surgical history: portal vein thrombosis,tummy tuck. back surgery. lap band sx. right breast lumpectomy. lymph node removal. 2 cardiac stents - Social History Smoking Status: Never smoker Smokeless Tobacco Status: No Alcohol use: none Drug use: none - Family History Father Adopted: No Family Member Ethnicity: Non- Living Status: Hx Family Cardiac Disorders: Yes Hx Family Respiratory Disorders: No Hx Family Cancer: No Hx Family GI Disorders: No Hx Family Endocrine Disorder: Yes Hx Family Neuromuscular Disorders: No Hx Family Neurologic Disorders: Yes Hx Family HEENT Disorders: No Hx Family Autoimmune Disorders: Yes Mother Family Member Ethnicity: Non- Living Status: Hx Family Cardiac Disorders: Yes Hx Family Respiratory Disorders: No Hx Family Cancer: Yes Hx Family GI Disorders: No Hx Family Endocrine Disorder: Yes Hx Family Neuromuscular Disorders: No Hx Family Neurologic Disorders: No Hx Family HEENT Disorders: No Hx Family Autoimmune Disorders: Yes (RA) Sister Adopted: No Living Status: Still Living Hx Family Cardiac Disorders: Yes Hx Family Respiratory Disorders: No Hx Family Cancer: No Hx Family GI Disorders: No Hx Family Endocrine Disorder: Yes Hx Family Neuromuscular Disorders: No Hx Family Neurologic Disorders: Yes Hx Family HEENT Disorders: No Hx Family Autoimmune Disorders: No Brother Adopted: No Living Status: Still Living Hx Family Cardiac Disorders: Yes Hx Family Respiratory Disorders: No Hx Family Cancer: No Hx Family GI Disorders: No Hx Family Endocrine Disorder: No Hx Family Neuromuscular Disorders: No Hx Family Neurologic Disorders: No Hx Family HEENT Disorders: No Hx Family Autoimmune Disorders: No Internal Medicine - H&P: Meds Escitalopram [Lexapro] 20 mg PO DAILY 05/16/15 [History] Rosuvastatin [Crestor] 40 mg PO QAM 05/16/15 [History] Nitroglycerin 0.4 mg SL Q5MIN PRN #0 tab.subl 07/10/16 [Rx] traZODone [TraZODone] 50 mg PO HS PRN 03/19/17 [History] Ranolazine [Ranexa] 1,000 mg PO BID 01/03/18 [History] Anastrozole [Arimidex] 1 mg PO DAILY 05/14/18 [History] Isosorbide MONOnitrate (24 HR) [Imdur] 60 mg PO BID 05/14/18 [History] Pantoprazole Sodium [Protonix] 40 mg PO DAILY 05/14/18 [History] metOLazone [Zaroxolyn] 2.5 mg PO 2XW PRN 05/14/18 [History] Spironolactone [Aldactone] 25 mg PO DAILY 01/11/19 [History] Warfarin [Coumadin] 2 mg PO SUMOWETHFR 01/11/19 [History] Amiodarone HCl 200 mg PO DAILY 01/12/19 [History] Furosemide [Lasix] 20 mg PO DAILY 02/13/19 [History] Insulin Glargine,Hum.rec.anlog [Lantus Solostar] 30 unit SQ HS 02/13/19 [History] Insulin LISPRO [Humalog Kwikpen U-100] 0 unit SQ TIDWM 02/13/19 [History] Lactulose 10 gm PO Q72H PRN 02/13/19 [History] Semaglutide [Ozempic] 0.25 mg SQ FR 04/08/19 [History] Clopidogrel [Plavix] 75 mg PO QAM 04/10/19 [History] Diltiazem HCl [Tiazac] 120 mg PO DAILY 04/10/19 [History] Potassium Chloride [Klor-Con 10] 20 meq PO BID 04/10/19 [History] Docusate [Colace] 100 mg PO DAILY PRN 04/16/19 [History] Gabapentin [Neurontin] 300 mg PO BID 04/16/19 [History] Magnesium Citrate [Citroma] 150 ml PO PRN PRN 04/16/19 [History] Warfarin [Coumadin] 1 mg PO TUSA 04/16/19 [History] Allergy/AdvReac Type Severity Reaction Status Date / Time phenylbutazone Allergy Rash Verified 05/14/18 14:15 [From Butazolidin] amitriptyline [From Elavil] AdvReac Headache Verified 05/14/18 14:15 codeine AdvReac Headache Verified 05/14/18 14:15 desipramine AdvReac Headache Verified 05/14/18 14:15 lisinopril AdvReac Cough Verified 05/14/18 14:15 meperidine [From Demerol] AdvReac Headache Verified 05/14/18 14:15 nalbuphine AdvReac Headache Verified 05/14/18 14:15 Nortriptyline AdvReac Headache Verified 05/14/18 14:15 tiagabine AdvReac Headache Verified 05/14/18 14:15 All Systems PM: A 10-system review of systems was performed and is negative for pertinent f indings except as documented above in the HPI. - Constitutional Constitutional: no chills, no fever(s), no night sweats - EENT Eyes: no change in vision, no discharge, no pain, no photophobia Ears: no ear discharge, no ear pain, no tinnitus Nose, mouth and throat: no dysphagia, no nasal discharge, no neck pain, no sore throat - Cardiovascular Cardiovascular ROS IM: no chest pain, no diaphoresis, no dyspnea, no lightheadedness, no palpitations, no syncope - Respiratory Respiratory: no cough, no dyspnea, no wheezing, no excessive phlegm production - Gastrointestinal Gastrointestinal: no abdominal pain, no diarrhea, no hematemesis, no hematochezia, no melena, no nausea, no vomiting - Genitourinary Genitourinary: no change in urinary stream, no dysuria, no flank pain, no hematuria - Musculoskeletal Musculoskeletal ROS IM: no numbness, no tingling - Integumentary Integumentary IM: no rash, no unusual bruising - Neurological Neurological ROS: no confusion, no convulsions, no focal weakness, no numbness, no tingling, no tremor(s) - Hematologic/Lymphatic Hematologic/Lymphatic: no easy bruising - Constitutional Vitals: Temp Pulse Resp BP Pulse Ox 98.1 F 60 18 140/129 98 04/16/19 17:47 04/16/19 21:50 04/16/19 21:50 04/16/19 21:50 04/16/19 21:50 Exam: General: Alert and oriented 3 Skin:Normal color, no rash, no lesions. HEENT:EOM, pupils equal, round and reactive. Cardiovascular:Normal S1 & S2, no rubs, murmurs or gallops. No JVD. Pulse regular. Lungs:Normal breath sounds, no wheezes or crackles. Abdomen:Soft, non-tender, no rigidity. Extremities:No deformity, no edema or tenderness, no joint swelling or clubbing. Neurological:Normal cognition; dystonia of the upper and lower extremities with frequent jerking. Cranial nerves II through XII intact. Muscle strength difficult to assess due to tremors. Sensation intact. Significant dysmetria. Pulses:Carotid and radial pulses normal +2. Rest of the physical exam is non contributory Internal Med - H&P Results - Labs CBC & Chem 7: 04/17/19 07:34 04/17/19 04:05 Labs: Short CBC 04/16/19 Range/Units 18:18 WBC 9.5 (4.3-11.1) K/mcL Hgb 12.0 (11.5-15.4) g/dL Hct 38.7 (35.3-44.9) % Plt Count 191 (140-400) K/mcL Neutrophils # 8.1 (1.6-8.9) K/mcL BMP 04/16/19 18:18 Sodium 135 L Potassium 4.7 Chloride 101 Carbon Dioxide 24 BUN 52 H Creatinine 2.05 H Glucose 148 H Calcium 9.6 Cardiac Enzymes 04/16/19 Range/Units 19:04 Troponin I 0.04 H* (< 0.04) ng/mL Liver Function 04/16/19 Range/Units 19:04 Total Bilirubin 0.4 (0.3-1.0) mg/dL Direct Bilirubin 0.1 (0.0-0.2) mg/dL AST 22 (13-39) Units/L ALT 39 (7-52) Units/L Alkaline Phosphatase 63 (34-104) Units/L Albumin 4.4 (3.5-5.7) g/dL Urine 04/16/19 Range/Units 19:14 Urine Color Yellow (Yellow) Urine Clarity Clear (Clear) Urine pH 6.0 (5.0-8.0) pH Units Ur Specific [place] 1.010 (1.010-1.025) Urine Protein Negative (Neg-Trace) mg/dL Urine Glucose (UA) Normal (Normal) mg/dL - Impressions ITS Impressions Chest X-Ray 04/16/19 18:16 IMPRESSION: No significant interval change since previous examination. No radiographic evidence of acute cardiopulmonary process. Prominence of interstitial lung markings may be secondary to low lung volumes. Mild interstitial pulmonary edema is not excluded. Correlation with volume status is recommended. D/ / 04/16/2019 19:26:51 Anthony Matias MD / ru Interpreting Provider: Anthony Matias MD Head CT 04/16/19 18:18 IMPRESSION: No acute intracranial abnormality. D/ / Charan Castaneda MD / Charan Castaneda MD Interpreting Provider: Charan Castaneda MD - Assessment and Plan (1) Altered mental status Current Visit: Yes Status: Acute Assessment and plan: Altered mental status of unclear etiology. No evidence of underlying infection. No significant electrolyte abnormalities. Creatinine appears to be slightly elevated compared to baseline which may be causing some uremia. Urine toxicology negative. According to , patient has had extensive workup of these episodes of neurologic jerking movements. Patient has had prior history of stroke and thus this may be a possibility as well given her prolonged recovery and aphasia from this presentation. Seizure may also be a possibility to consider. Patient appears to be returning back to her baseline and is able to answer questions which she was not doing prior. -Neurochecks -Telemetry -We will obtain carotid duplex. Patient had recent echocardiogram 7 days ago. -We attempt to obtain a MRI in the morning though patient does have a cardiac p acemaker/ICD which will need to be determined if MRI safe. -Consult to neurology Qualifiers: Altered mental status type: unspecified Qualified Code(s): R41.82 - Altered mental status, unspecified (2) Acute renal failure superimposed on stage 3 chronic kidney disease Current Visit: No Status: Acute Assessment and plan: Creatinine 2.05 on admission. Baseline appears to be around 1.5. -We will start patient on gentle hydration and monitor. Qualifiers: Acute renal failure type: unspecified Qualified Code(s): N17.9 - Acute kidney failure, unspecified; N18.3 - Chronic kidney disease, stage 3 (moderate) (3) Elevated troponin Current Visit: No Status: Acute Assessment and plan: Elevated troponin of 0.04 which appears to be chronic in the setting of her chronic kidney disease. EKG shows paced rhythm. No reports of chest pain. -We will continue to monitor for evidence of cardiac ischemia. (4) Pacemaker Current Visit: No Status: Acute Assessment and plan: Patient had recent adjustments made to her pacemaker during previous admission. reports however that pacemaker was reverted back to its original settings after follow-up with Dr. Neville. (5) CAD (coronary artery disease) Current Visit: No Status: Chronic Assessment and plan: Continue aspirin, BB, statin as tolerated. Qualifiers: Coronary Disease-Associated Artery/Lesion type: [place] artery [place] vs. transplanted heart: [place] heart Associated angina: without angina Qualified Code(s): I25.10 - Atherosclerotic heart disease of [place] coronary artery without angina pectoris (6) Diabetes mellitus Current Visit: No Status: Chronic Assessment and plan: Known history of insulin-dependent type 2 diabetes Blood sugar relatively well controlled upon presentation We will continue sliding scale insulin plus basal insulin ADA diet Qualifiers: Diabetes mellitus type: type 2 Diabetes mellitus intermediate insulin use: with intermediate use Diabetes mellitus complication status: with hyperglycemia Qualified Code(s): E11.65 - Type 2 diabetes mellitus with hyperglycemia; 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.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 (current) use of insulin; Z79.4 - rodent 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 (current) use of insulin; Z79.4 - senior care (current) use of insulin; Z79.4 - senior care (current) use of insulin (7) Combined systolic and diastolic congestive heart failure Current Visit: No Status: Acute Assessment and plan: Chronic known systolic failure with ejection fraction of 50-55% with moderate diastolic dysfunction Takes Lasix at home 20 mg a day Does not appear to be in acute exacerbation Continue home meds Qualifiers: Qualified Code(s): I50.41 - Acute combined systolic (congestive) and diastolic (congestive) heart failure (8) DVT prophylaxis Current Visit: No Status: Acute Assessment and plan: Currently on warfarin - Time Spent With Patient Total time spent is greater than 50% in coordination of care (as documented) at patient's floor/unit and/or counseling patient:
[2019-04-16] MEDS: Isosorbide MONOnitrate (24 HR) 60 MG TAB.ER.24H PO SCH (22:56)
[2019-04-16] MEDS: traZODone 50 MG TABLET PO PRN (22:58)
[2019-04-17] MEDS ORDERED: 0.9 % Sodium Chloride 1,000 ML IVC SCH (03:45)
[2019-04-17 04:51] LABS: INR 3.4; Prothrombin Time 38.9 Seconds (9.4-12.1)
[2019-04-17 04:54] LABS: Activated Partial Thrombo Time 37.2 Seconds (26.0-36.0)
[2019-04-17 05:07] LABS: Albumin 4.1 g/dL (3.5-5.7); Albumin/Globulin Ratio 1.7 (1.1-2.2); Bilirubin,Total 0.4 mg/dL (0.3-1.0); Calcium 9.4 mg/dL (8.6-10.3); Globulin 2.4 g/dL (2.4-3.5); Potassium 4.7 mEq/L (3.5-5.1); Total Protein 6.5 g/dL (6.4-8.9); Troponin I 0.04 ng/mL (< 0.04)
[2019-04-17 06:53] LABS: Estimated Average Glucose 120 mg/dl
[2019-04-17] MEDS ORDERED: *HR* LORazepam 2 MG/ML VIAL IVP ONE (07:01)
[2019-04-17 07:55] LABS: Basophils % 0.2 %; Eosinophils % 0.2 %; Hematocrit 35.9 % (35.3-44.9); Hemoglobin 11.6 g/dL (11.5-15.4); Immature Granulocytes % 0.4 % (0-4); Lymphocytes # 0.6 K/mcL (0.6-4.6); Lymphocytes % 6.1 %; Mean Corpuscular HGB Conc 32.3 g/dL (31.6-35.5); Mean Corpuscular Hemoglobin 26.6 pg (28.0-33.3); Mean Corpuscular Volume 82.3 fL (83.0-100.0); Mean Platelet Volume 10.3 fL (9.4-12.4); Monocytes # 0.4 K/mcL (0.0-1.3); Monocytes % 4.2 %; Neutrophils # 9.2 K/mcL (1.6-8.9); Platelet Count 168 K/mcL (140-400); Red Blood Count 4.36 M/mcL (3.82-4.97); Red Cell Distribution Width 13.7 % (11.5-14.5); Segmented Neutrophils % 88.9 %; White Blood Count 10.3 K/mcL (4.3-11.1)
--- NOTE | 2019-04-17 08:14 | Event Note ---
Date of Encounter: 04/17/19 Time of Encounter: 06:54 Responded to a rapid response around 6:[address] Josue was already in the room evaluating the patient. I spoke with the who was in the room who stated that was asleep and suddenly appeared to be delusional reaching out and grabbing things and space. Her arms and legs were flailing more than usual when all of a sudden she seized and became unresponsive. On my assessment patient was lethargic arousable to verbal stimulation. She would open her eyes but was not responding to commands. There was evidence of blood on the left side of her tongue and lip. She did have twitching of her upper and lower extremities but much more diminished than previous. Vitals were obtained which were stable. Due to concern for seizure, 2 mg of IV Ativan were administered. Additionally patient was given 500 mL of fluids. Patient was taken down for CT of the head which did not show any evidence of bleed. At this time patient patient will open her eyes but will not respond. Case discussed with Dr. Eastman who has prior knowledge of the patient's clinical condition and recommended initiating patient on 500 mg of Keppra IV and will consult on the patient.
[2019-04-17 08:22] LABS: Troponin I 0.04 ng/mL (< 0.04)
[2019-04-17] MEDS ORDERED: Furosemide 20 MG TABLET PO SCH (09:00)
--- NOTE | 2019-04-17 09:48 | Neurology - Consult Note ---
Date of Encounter: 04/17/19 Time of Encounter: 09:46 Assessment and Plan (1) Seizure Current Visit: Yes Status: Acute The patient has rather complicated neurological history of recurrent shaking activity within the last 4 years characterized by generalized limb shaking activity lasting 20-30 minutes without losing her consciousness therefore these are likely nonepileptic events. However, patient developed rather prolonged similar episode resulting in hospital stay and this was followed by a much different generalized arm stiffening, associate with loss of consciousness and tongue biting therefore this appears to be an epileptic event. This may be complicated by worsening renal function evidenced by elevated creatinine which may provoke generalized seizure activity It is my opinion that the patient may have normally non-epileptic/psychogenic event however, this time likely she had a generalized tonic-clonic seizure that is provoked by medical conditions as well as possibility of hyperventilation that proceeded the epileptic event. At this time, I would recommend starting her on antiepileptic therapy in the form of Keppra 500 mg twice a day and would obtain routine EEG in the morning. Meanwhile, would recommend medical and supportive treatment for her underlying renal insufficiency. Patient's CT of the head images were reviewed and it showed no acute intracranial abnormality. Patient is unable to have MRI due to AICD placement I spent 60 minutes [id number] with the patient, of which more than 50% of time was spent in counseling and coordination of care (2) Convulsion, non-epileptic Current Visit: Yes Status: Acute Patient has had recurrent shaking activity in the last 4 years usually lasting 20-30 minutes without loss of consciousness and I still believe that these are likely not epileptic events. This can be best evaluated with prolonged ambulato ry EEG in an outpatient setting Currently would keep her on antiepileptic therapy in the form of Keppra 500 mg twice a day and stabilize her medical conditions and eventually she needs to follow with neurology for such workup. Qualifiers: Convulsion type: unspecified Qualified Code(s): R56.9 - Unspecified convulsions History of Present Illness Chief complaint: seizuure like activity HPI: Ms. Fischer is a 73 year old female with PMH significant for congestive heart failure, chronic kidney disease, diabetes, history of cerebral infarct, anxiety depression, obstructive sleep apnea on CPAP, diabetes, AICD placement on Coumadin therapy who developed rather prolonged episode of seizure-like activity characterized by shaking activity involving her limbs. Patient is interviewed in the presence of his who provided rather detailed history of her medical condition. Apparently, the patient has been experiencing these recurrent shaking activity occurred approximately 4 years ago. At the time, she had lap band surgery and thus when all the problems started. The patient developed about a dozen of such shaking activity over the last 4 years and the work slightly more frequent within the last year. These episodes are somewhat similar in their characteristics. With her typical episodes, the patient would feeling the spell is coming on and she would start having jerking/flailing movements involving her arms and legs gradually getting up. During the episod es, the patient would be alert and aware of what is going on and her would put oxygen mask on and usually after 20 minutes the spells would gradually stop and usually by the time she arrives to the emergency room her symptoms would resolve. Patient states that he did brain the patient to the emergency room 2-3 times in the past however, by the time she arrived in the emergency room her symptoms would resolve therefore initially it was thought these are nonepileptic events. Yesterday, however, the patient had a similar event and as usual the patient's started her on oxygen via facial mask however, this did not help the patient's spell and the spell actually lasted more than 1 hour therefore her became concerned and brought her to the emergency room last night for further evaluation. Patient was found to have slightly elevated creatinine. Per the patient's , after going up on to the medical floor the patient was still having shaking and flailing movements until about 3 AM in the morning or at the movements appeared slowing down however, at about 5 AM this morning the patient started having the episode again and this time the shaking activity turned into significant arm stiffening which is definitively different than her usual flailing movements. Per her , this appears to be a real seizure activity. Later it was found the patient has bitten her tongue to the left side and during the spell the patient lost her consciousness which has never happened in the past. Patient also has long history of balance difficulty and frequent falling patient has been evaluated by few different neurologists and no definitive cause of her balance difficulty was identified. Patient is unable to get MRI scanning due to AICD placement patient had repeat CT of the head this morning which showed no acute intracranial abnormality. Patient was started Keppra 500 mg twice a day for seizure-like activity. Currently the patient is drowsy and likely due to the use of Ativan. CT of the head result reviewed and discussed with the patient. 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 breast cancer. stage III renal failure. INEZ. sick sinus surgery Psychiatric history: depression, other - Past Surgical History Surgical History: breast surgery Additional surgical history: portal vein thrombosis,tummy tuck. back surgery. lap band sx. right breast lumpectomy. lymph node removal. 2 cardiac stents - Social History Smoking Status: Never smoker Smokeless Tobacco Status: No Alcohol use: none Drug use: none - Family History Father Adopted: No Family Member Ethnicity: Non- Living Status: Hx Family Cardiac Disorders: Yes Hx Family Respiratory Disorders: No Hx Family Cancer: No Hx Family GI Disorders: No Hx Family Endocrine Disorder: Yes Hx Family Neuromuscular Disorders: No Hx Family Neurologic Disorders: Yes Hx Family HEENT Disorders: No Hx Family Autoimmune Disorders: Yes Mother Family Member Ethnicity: Non- Living Status: Hx Family Cardiac Disorders: Yes Hx Family Respiratory Disorders: No Hx Family Cancer: Yes Hx Family GI Disorders: No Hx Family Endocrine Disorder: Yes Hx Family Neuromuscular Disorders: No Hx Family Neurologic Disorders: No Hx Family HEENT Disorders: No Hx Family Autoimmune Disorders: Yes (RA) Sister Adopted: No Living Status: Still Living Hx Family Cardiac Disorders: Yes Hx Family Respiratory Disorders: No Hx Family Cancer: No Hx Family GI Disorders: No Hx Family Endocrine Disorder: Yes Hx Family Neuromuscular Disorders: No Hx Family Neurologic Disorders: Yes Hx Family HEENT Disorders: No Hx Family Autoimmune Disorders: No Brother Adopted: No Living Status: Still Living Hx Family Cardiac Disorders: Yes Hx Family Respiratory Disorders: No Hx Family Cancer: No Hx Family GI Disorders: No Hx Family Endocrine Disorder: No Hx Family Neuromuscular Disorders: No Hx Family Neurologic Disorders: No Hx Family HEENT Disorders: No Hx Family Autoimmune Disorders: No Medications and Allergies Escitalopram [Lexapro] 20 mg PO DAILY 05/16/15 [History] Rosuvastatin [Crestor] 40 mg PO QAM 05/16/15 [History] Nitroglycerin 0.4 mg SL Q5MIN PRN #0 tab.subl 07/10/16 [Rx] traZODone [TraZODone] 50 mg PO HS PRN 03/19/17 [History] Ranolazine [Ranexa] 1,000 mg PO BID 01/03/18 [History] Anastrozole [Arimidex] 1 mg PO DAILY 05/14/18 [History] Isosorbide MONOnitrate (24 HR) [Imdur] 60 mg PO BID 05/14/18 [History] Pantoprazole Sodium [Protonix] 40 mg PO DAILY 05/14/18 [History] metOLazone [Zaroxolyn] 2.5 mg PO 2XW PRN 05/14/18 [History] Spironolactone [Aldactone] 25 mg PO DAILY 01/11/19 [History] Warfarin [Coumadin] 2 mg PO SUMOWETHFR 01/11/19 [History] Amiodarone HCl 200 mg PO DAILY 01/12/19 [History] Furosemide [Lasix] 20 mg PO DAILY 02/13/19 [History] Insulin Glargine,Hum.rec.anlog [Lantus Solostar] 30 unit SQ HS 02/13/19 [History] Insulin LISPRO [Humalog Kwikpen U-100] 0 unit SQ TIDWM 02/13/19 [History] Lactulose 10 gm PO Q72H PRN 02/13/19 [History] Semaglutide [Ozempic] 0.25 mg SQ FR 04/08/19 [History] Clopidogrel [Plavix] 75 mg PO QAM 04/10/19 [History] Diltiazem HCl [Tiazac] 120 mg PO DAILY 04/10/19 [History] Potassium Chloride [Klor-Con 10] 20 meq PO BID 04/10/19 [History] Docusate [Colace] 100 mg PO DAILY PRN 04/16/19 [History] Gabapentin [Neurontin] 300 mg PO BID 04/16/19 [History] Magnesium Citrate [Citroma] 150 ml PO PRN PRN 04/16/19 [History] Warfarin [Coumadin] 1 mg PO TUSA 04/16/19 [History] Allergy/AdvReac Type Severity Reaction Status Date / Time phenylbutazone Allergy Rash Verified 05/14/18 14:15 [From Butazolidin] amitriptyline [From Elavil] AdvReac Headache Verified 05/14/18 14:15 codeine AdvReac Headache Verified 05/14/18 14:15 desipramine AdvReac Headache Verified 05/14/18 14:15 lisinopril AdvReac Cough Verified 05/14/18 14:15 meperidine [From Demerol] AdvReac Headache Verified 05/14/18 14:15 nalbuphine AdvReac Headache Verified 05/14/18 14:15 Nortriptyline AdvReac Headache Verified 05/14/18 14:15 tiagabine AdvReac Headache Verified 05/14/18 14:15 All Systems: The remainder of the systems were reviewed and are negative - Constitutional Constitutional ROS IM: anorexia (no), chills (no), daytime sleepiness (no), fever(s) (no), frequent falls (yes), headache(s) (no) - Cardiovascular Cardiovascular ROS IM: chest pain (no), chest pain at rest (no), chest pain with activity (no), claudication (no) - Respiratory Respiratory IM: cough (no), hemoptysis (no) - Genitourinary Genitourinary ROS: difficulty urinating (no) - Musculoskeletal Musculoskeletal ROS IM: abnormal gait (yes) - Neurological Neurological ROS: abnormal gait (yes), abnormal hearing (no), abnormal movements (yes), convulsions (yes), disequilibrium (yes), frequent falls (yes) - Psychiatric Psychiatric general PM: abnormal sleep pattern (no), anhedonia (no), anxiety (no), auditory hallucinations (no) - Endocrine Endocrine IM: change in body appearance (no) Physical Examination - Vital Signs Vital Signs: Initial Vital Signs Temp Pulse Resp BP Pulse Ox 98.1 F 60 18 128/97 97 04/16/19 17:47 04/16/19 17:47 04/16/19 17:47 04/16/19 17:47 04/16/19 17:47 - Constitutional General appearance: uncomfortable - Neurologic Sensorimotor examination: other (Unable to assess due to somnolence) Detailed motor examination: other (Patient moves all extremities. intermittent shakes noted to both arms, with a dystonic feature) Reflexes: Biceps: 2+, Triceps: 2+, Brachioradialis: 2+, Patella: 2+, Achilles: 2+ Mental Status Examination: drowsy (Patient drowsy due to sedation. Not be able to assess mental status) Cranial nerve examination: PERRL, EOMI (Unable to assess), visual [place] intact (Unable to assess), corneal reflexes brisk symmetrically, sensory to face intact (Unable to assess), mastication intact, no facial asymmetry is present, no dysarthria (Unable to assess speech), hearing is intact symmetrically, soft palate elevates bilaterally upon phonation (Unable to assess), tongue protrudes midline (Tongue is midline. Noted biting odilia on the left side of tongue) Results - Laboratory Findings CBC and BMP: 04/17/19 07:34 04/17/19 04:05 Abnormal lab findings: Abnormal lab results MCV 82.3 fL (83.0-100.0) L 04/17/19 07:34 MCH 26.6 pg (28.0-33.3) L 04/17/19 07:34 MCHC 31.0 g/dL (31.6-35.5) L 04/16/19 18:18 Neutrophils # 9.2 K/mcL (1.6-8.9) H 04/17/19 07:34 PT 38.9 Seconds (9.4-12.1) H 04/17/19 04:05 APTT 37.2 Seconds (26.0-36.0) H 04/17/19 04:05 Sodium 134 mEq/L (136-145) L 04/17/19 04:05 Carbon Dioxide 22 mEq/L (23-29) L 04/17/19 04:05 BUN 53 mg/dL (8-23) H 04/17/19 04:05 Creatinine 2.10 mg/dL (0.60-1.20) H 04/17/19 04:05 Est GFR ( Amer) 28 (> 60) L 04/17/19 04:05 Est GFR (Non-Af Amer) 23 (> 60) L 04/17/19 04:05 Glucose 157 mg/dL (70-105) H 04/17/19 04:05 POC Glucose 149 mg/dL (70-99) H 04/17/19 06:42 Hemoglobin A1c 5.8 % (-5.6) H 04/17/19 04:05 Lactic Acid 3.2 mmol/L (0.5-2.2) H 04/17/19 07:34 Creatine Kinase 24 Units/L (30-223) L 04/17/19 07:34 Troponin I 0.04 ng/mL (< 0.04) H* 04/17/19 07:34 B-Natriuretic Peptide 125 pg/mL (Less than 100) H 04/16/19 18:18 Ur Leukocyte Esterase Small (Negative) H 04/16/19 19:14 Urine Microscopic WBC 5-15 per hpf (0-3) H 04/16/19 19:14 Ur Squamous Epith Cells Many per lpf (None-Few) H 04/16/19 19:14 Ur Culture Indicated? YES (NO) A 04/16/19 19:14 - Diagnostic Findings Additional findings: EXAMINATION: CT OF THE HEAD WITHOUT CONTRAST 04/17/2019 7:28 am TECHNIQUE: CT of the head was performed without the administration of intravenous contrast. Dose modulation, iterative reconstruction, and/or weight based adjustment of the mA/kV was utilized to reduce the radiation dose to as low as reasonably achievable. COMPARISON: 04/16/2019 HISTORY: ORDERING SYSTEM PROVIDED HISTORY: Seizure-type activity FINDINGS: BRAIN/VENTRICLES: Generalized cerebral atrophy. Mild periventricular white matter hypodensity is again demonstrated bilaterally. No hydrocephalus. No mass effect or midline shift. No gross acute hemorrhage. 6 mm calcified lesion along the peripheral left frontal lobe, suggestive of meningioma. ORBITS: The visualized portion of the orbits demonstrate no acute abnormality. SINUSES: The visualized paranasal sinuses and mastoid air cells demonstrate no acute abnormality. SOFT TISSUES/SKULL: No acute abnormality of the visualized skull or soft tissues. CT/CT head/brain wo con IMPRESSION: Atrophy and small vessel ischemic disease. D/ / Adeel Calvin MD / Adeel Calvin MD Interpreting Provider: Adeel Calvin MD Consult Discharge Plan - Plan Referrals: NONE,PCP [Primary Care Provider] -
[2019-04-17] MEDS: Diltiazem CD (24hr) 120 MG CAPSULE PO SCH (09:56)
[2019-04-17] MEDS: *HR* Amiodarone 200 MG TABLET PO SCH (09:56)
[2019-04-17] MEDS: Gabapentin 300 MG CAPSULE PO SCH ×2 (09:56→21:42)
[2019-04-17] MEDS: Anastrozole 1 MG TABLET PO SCH (09:56)
[2019-04-17] MEDS: Isosorbide MONOnitrate (24 HR) 60 MG TAB.ER.24H PO SCH ×2 (09:56→21:42)
[2019-04-17] MEDS: Spironolactone 25 MG TABLET PO SCH (09:56)
[2019-04-17] MEDS: Ranolazine 500 MG TAB.ER.12H PO SCH ×2 (09:57→21:42)
[2019-04-17] MEDS ORDERED: 0.9 % Sodium Chloride 500 ML IVC ONE (10:35)
--- NOTE | 2019-04-17 11:56 | Internal Med Progress Note ---
Hospitalist Progress Note - Encounter Date of Encounter: 04/17/19 Time of Encounter: 09:45 - Subjective Interval History: Had seizure-like episode this morning for which rapid response was called. Pt's reports that she had UEs jerking followed by stiffening of the all 4 extremities associated with LOC and tongue biting. She was loaded with Keppra after which she returned to her "usual shaking activity" of her UEs that appear rhythmic. No fever overnight. - Exam Vitals: Temp Pulse Resp BP Pulse Ox 97.9 F 60 17 114/62 98 04/17/19 11:42 04/17/19 11:42 04/17/19 11:42 04/17/19 11:42 04/17/19 11:42 Exam: General: Alert, able to answer the questions with yes or no answers and nodding HEENT: pupils equal, round and reactive. Cardiovascular:Normal S1 & S2, no rubs, murmurs or gallops. No JVD. Pulse regular. Lungs:Normal breath sounds, no wheezes or crackles. Abdomen:Soft, non-tender, no rigidity. Extremities:No deformity, no edema or tenderness, no joint swelling or clubbing. Neurological: continues to have frequent, jerky movement most notably on UEs and L face - Assessment and Plan (1) Seizure Current Visit: Yes Status: Acute Assessment and Plan: complicated neurological history of recurrent shaking activity, predominantly in the UEs, for the last 4 years. Likely to be non-epileptic per neuro however, pt did have an episode this morning when she had tonic-clonic events a/w LOC and tongue biting. Raises suspicion for an epileptic event Aborted after loading with IV keppra and she returned to her "usual shaking movement". Alert and able to answer the questions appropriately with yes or no answers ?triggered by AoCKD appreciate neuro input, start on keppra and check EEG tomorrow unable to perform MRI due to PPM seizure precautions (2) Acute renal failure superimposed on stage 3 chronic kidney disease Current Visit: Yes Status: Acute Assessment and Plan: Baseline creatinine around 1.6, presented with 2.1 and lactic acidosis CPK normal continue IVF and monitor Cr hold off on lasix avoid nephrotoxins (3) Elevated troponin Current Visit: Yes Status: Acute Assessment and Plan: 0.04-0.04-0.04, flat and adynamic without EKG changes. Noted to be chronic as well (4) Diabetes mellitus Current Visit: Yes Status: Chronic Assessment and Plan: continue basal-bolus insulin (5) CAD (coronary artery disease) Current Visit: No Status: Chronic Assessment and Plan: resume home meds (6) Chronic a-fib Current Visit: Yes Status: Chronic Assessment and Plan: Status post pacemaker insertion for sick sinus syndrome. Continue amiodarone, diltiazem INR 3.4, pharmacy to assist with Coumadin dosing (7) (HFpEF) heart failure with preserved ejection fraction Current Visit: Yes Status: Chronic Assessment and Plan: not in decompensation, lasix on hold due to AoCKD (8) DVT prophylaxis Current Visit: No Status: Acute Assessment and Plan: Currently on warfarin - Time Spent with Patient Total time spent is greater than 50% in coordination of care (as documented) at patient's floor/unit and/or counseling patient: 25 - 35 minutes Plan of Care Discussed with: family Internal Medicine: Result - Labs CBC & Chem 7: 04/17/19 07:34 04/17/19 04:05 Labs: Short CBC 04/16/19 04/17/19 Range/Units 18:18 07:34 WBC 9.5 10.3 (4.3-11.1) K/mcL Hgb 12.0 11.6 (11.5-15.4) g/dL Hct 38.7 35.9 (35.3-44.9) % Plt Count 191 168 (140-400) K/mcL Neutrophils # 8.1 9.2 H (1.6-8.9) K/mcL BMP 04/16/19 04/17/19 18:18 04:05 Sodium 135 L 134 L Potassium 4.7 4.7 Chloride 101 101 Carbon Dioxide 24 22 L BUN 52 H 53 H Creatinine 2.05 H 2.10 H Glucose 148 H 157 H Calcium 9.6 9.4 Cardiac Enzymes 04/16/19 04/17/19 04/17/19 Range/Units 19:04 04:05 07:34 Troponin I 0.04 H* 0.04 H* 0.04 H* (< 0.04) ng/mL Liver Function 04/16/19 04/17/19 Range/Units 19:04 04:05 Total Bilirubin 0.4 0.4 (0.3-1.0) mg/dL Direct Bilirubin 0.1 (0.0-0.2) mg/dL AST 22 18 (13-39) Units/L ALT 39 33 (7-52) Units/L Alkaline Phosphatase 63 54 (34-104) Units/L Albumin 4.4 4.1 (3.5-5.7) g/dL Urine 04/16/19 Range/Units 19:14 Urine Color Yellow (Yellow) Urine Clarity Clear (Clear) Urine pH 6.0 (5.0-8.0) pH Units Ur Specific [place] 1.010 (1.010-1.025) Urine Protein Negative (Neg-Trace) mg/dL Urine Glucose (UA) Normal (Normal) mg/dL - ABG Interpretation ABG results: PT/INR, D-dimer PT 38.9 Seconds (9.4-12.1) H 04/17/19 04:05 - Impressions Impressions Chest X-Ray 04/16/19 18:16 IMPRESSION: 1. No significant interval change since previous examination. No radiographic evidence of acute cardiopulmonary process. 2. Prominence of interstitial lung markings may be secondary to low lung volumes. Mild interstitial pulmonary edema is not excluded. Correlation with volume status is recommended. D/ / 04/16/2019 19:26:51 Anthony Matias MD / speedy Interpreting Provider: Anthony Matias MD Head CT 04/16/19 18:18 IMPRESSION: No acute intracranial abnormality. D/ / Charan Castaneda MD / Charan Castaneda MD Interpreting Provider: Charan Castaneda MD Head CT 04/17/19 07:03 IMPRESSION: Atrophy and small vessel ischemic disease. D/ / Adeel Calvin MD / Adeel Calvin MD Interpreting Provider: Adeel Calvin MD Consult Discharge Plan - Plan Referrals: NONE,PCP [Primary Care Provider] - (2) Acute renal failure superimposed on stage 3 chronic kidney disease Qualifiers: Acute renal failure type: unspecified Qualified Code(s): N17.9 - Acute kidney failure, unspecified; N18.3 - Chronic kidney disease, stage 3 (moderate) (4) Diabetes mellitus Qualifiers: Diabetes mellitus type: type 2 Diabetes mellitus assisted insulin use: with extermination inspector use Diabetes mellitus complication status: with hyperglycemia Qualified Code(s): E11.65 - Type 2 diabetes mellitus with hyperglycemia; Z79.4 - termite control servicer (current) use of insulin; Z79.4 - senior care (current) use of insulin; Z79.4 - termite control servicer (current) use of insulin; Z79.4 - termite control servicer (current) use of insulin (5) CAD (coronary artery disease) Qualifiers: Coronary Disease-Associated Artery/Lesion type: [place] artery [place] vs. transplanted heart: [place] heart Associated angina: without angina Qualified Code(s): I25.10 - Atherosclerotic heart disease of [place] coronary artery without angina pectoris (7) (HFpEF) heart failure with preserved ejection fraction Qualifiers: Heart failure chronicity: chronic Qualified Code(s): I50.32 - Chronic diasto lic (congestive) heart failure
[2019-04-17] MEDS: levETIRAcetam 250 MG TABLET PO SCH (17:37)
[2019-04-17] MEDS ORDERED: *HR* Warfarin 2 MG TABLET PO SCH (18:00)
[2019-04-17] MEDS ORDERED: Insulin DETEMIR 100 UNIT/ML X5UNITS SQ SCH (21:00)
[2019-04-18] MEDS: traZODone 50 MG TABLET PO PRN (00:05)
[2019-04-18] MEDS: levETIRAcetam 250 MG TABLET PO SCH ×2 (05:11→17:17)
[2019-04-18 05:28] LABS: Basophils % 0.2 %; Eosinophils # 0.2 K/mcL (0.0-0.6); Eosinophils % 1.9 %; Hematocrit 34.6 % (35.3-44.9); Hemoglobin 11.2 g/dL (11.5-15.4); Immature Granulocytes % 0.4 % (0-4); Lymphocytes # 0.7 K/mcL (0.6-4.6); Lymphocytes % 7.3 %; Mean Corpuscular HGB Conc 32.4 g/dL (31.6-35.5); Mean Corpuscular Hemoglobin 26.7 pg (28.0-33.3); Mean Corpuscular Volume 82.6 fL (83.0-100.0); Mean Platelet Volume 10.7 fL (9.4-12.4); Monocytes # 0.7 K/mcL (0.0-1.3); Neutrophils # 7.5 K/mcL (1.6-8.9); Platelet Count 154 K/mcL (140-400); Red Blood Count 4.19 M/mcL (3.82-4.97); Red Cell Distribution Width 13.6 % (11.5-14.5); Segmented Neutrophils % 82.2 %; White Blood Count 9.1 K/mcL (4.3-11.1)
[2019-04-18 05:39] LABS: INR 3.4; Prothrombin Time 38.6 Seconds (9.4-12.1)
[2019-04-18 05:48] LABS: Calcium 9.5 mg/dL (8.6-10.3); Potassium 3.6 mEq/L (3.5-5.1)
[2019-04-18] MEDS ORDERED: Dextrose Gel 15 GM/37.5 ML TUBE PO PRN ×2 (08:26)
[2019-04-18] MEDS ORDERED: *HR* Dextrose 50 % in Water (Syg) 50 ML SYRINGE IVP PRN (08:26)
[2019-04-18] MEDS ORDERED: D5% in Water 1,000 ML IVC PRN (08:26)
[2019-04-18] MEDS: Spironolactone 25 MG TABLET PO SCH (08:55)
[2019-04-18] MEDS: Gabapentin 300 MG CAPSULE PO SCH (08:55)
[2019-04-18] MEDS: Isosorbide MONOnitrate (24 HR) 60 MG TAB.ER.24H PO SCH (08:55)
[2019-04-18] MEDS: Diltiazem CD (24hr) 120 MG CAPSULE PO SCH (08:55)
[2019-04-18] MEDS: Anastrozole 1 MG TABLET PO SCH (08:55)
[2019-04-18] MEDS: Ranolazine 500 MG TAB.ER.12H PO SCH (08:55)
[2019-04-18] MEDS: *HR* Amiodarone 200 MG TABLET PO SCH (08:55)
--- NOTE | 2019-04-18 09:43 | Discharge Summary ---
- NOTES TO OUTPATIENT PROVIDER Notes to Outpatient Provider: Follow up with Neurology as outpatient. Metolazone and lasix on hold due to AoCKD, repeat BMP in 5 days and follow up with PCP. Date of Encounter: 04/18/19 Time of Encounter: 07:30 - Discharge Diagnosis (1) Seizure Priority: Primary Status: Acute (2) Acute renal failure superimposed on stage 3 chronic kidney disease Priority: Secondary Status: Acute Qualifiers: Acute renal failure type: unspecified Qualified Code(s): N17.9 - Acute kidney failure, unspecified; N18.3 - Chronic kidney disease, stage 3 (moderate) (3) Elevated troponin Priority: Secondary Status: Acute (4) Diabetes mellitus Priority: Secondary Status: Chronic Qualifiers: Diabetes mellitus type: type 2 Diabetes mellitus chcf insulin use: with chcf use Diabetes mellitus complication status: with hyperglycemia Qualified Code(s): E11.65 - Type 2 diabetes mellitus with hyperglycemia; Z79.4 - retirement (current) use of insulin; 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 transplanted heart: [place] heart Associated angina: without angina Qualified Code(s): I25.10 - Atherosclerotic heart disease of [place] coronary artery without angina pectoris (6) Chronic a-fib Priority: Secondary Status: Chronic (7) (HFpEF) heart failure with preserved ejection fraction Priority: Secondary Status: Chronic Qualifiers: Heart failure chronicity: chronic Qualified Code(s): I50.32 - Chronic diastolic (congestive) heart failure (8) DVT prophylaxis Priority: Secondary Status: Acute Hospital course: Ms. Fischer is a 73 year old female with PMHx of Afib/SSS s/p PM, breast cancer, CHF, CAD, CVA x 2, DM, GERD, HTN, CKD III, INEZ, who presented to ED with rather prolonged episode of seizure-like activity characterized by shaking activity involving her limbs. Of note, she had seen Neurology over the past 4 years for the similar complaint but was rather prolonged in duration and was also associated with limb stiffening that was noted during the admission. Although the prior episodes were attributed to non-epileptic events, the current episode that was observed in the hospital raised suspicion for seizure hence keppra 500mg BID was started. Unable to obtain MRI due to the presence of PPM. She also had acute on chronic kidney failure that could potentially be the trigger for such neurologic event and Cr subsequent improved with IVF and her "shaking" also stopped. Seen in consultation with Neurology and pt also underwent EEG during the hospitalization and she will follow up with them as outpatient. Discharge discussed with: patient, nurse - Time Spent with Patient Total time spent providing and/or coordinating discharge services: 31 mins - Discharge Medications Prescriptions: New levETIRAcetam [Keppra] 500 mg PO Q12HR #120 tablet Continued Rosuvastatin [Crestor] 40 mg PO QAM Escitalopram [Lexapro] 20 mg PO DAILY Nitroglycerin 0.4 mg SL Q5MIN PRN #0 tab.subl PRN Reason: Chest Pain traZODone [TraZODone] 50 mg PO HS PRN PRN Reason: Sleep Ranolazine [Ranexa] 1,000 mg PO BID Anastrozole [Arimidex] 1 mg PO DAILY Isosorbide MONOnitrate (24 HR) [Imdur] 60 mg PO BID Pantoprazole Sodium [Protonix] 40 mg PO DAILY Spironolactone [Aldactone] 25 mg PO DAILY Warfarin [Coumadin] 2 mg PO SUMOWETHFR Amiodarone HCl 200 mg PO DAILY Insulin Glargine,Hum.rec.anlog [Lantus Solostar] 30 unit SQ HS Insulin LISPRO [Humalog Kwikpen U-100] 0 unit SQ TIDWM Lactulose 10 gm PO Q72H PRN PRN Reason: Constipation Semaglutide [Ozempic] 0.25 mg SQ FR Clopidogrel [Plavix] 75 mg PO QAM Diltiazem HCl [Tiazac] 120 mg PO DAILY Potassium Chloride [Klor-Con 10] 20 meq PO BID Magnesium Citrate [Citroma] 150 ml PO PRN PRN PRN Reason: Constipation Docusate [Colace] 100 mg PO DAILY PRN PRN Reason: Constipation Gabapentin [Neurontin] 300 mg PO BID Warfarin [Coumadin] 1 mg PO TUSA Discontinued metOLazone [Zaroxolyn] 2.5 mg PO 2XW PRN PRN Reason: Edema Furosemide [Lasix] 20 mg PO DAILY Home Medications: Escitalopram [Lexapro] 20 mg PO DAILY 05/16/15 [History] Rosuvastatin [Crestor] 40 mg PO QAM 05/16/15 [History] Nitroglycerin 0.4 mg SL Q5MIN PRN #0 tab.subl 07/10/16 [Rx] traZODone [TraZODone] 50 mg PO HS PRN 03/19/17 [History] Ranolazine [Ranexa] 1,000 mg PO BID 01/03/18 [History] Anastrozole [Arimidex] 1 mg PO DAILY 05/14/18 [History] Isosorbide MONOnitrate (24 HR) [Imdur] 60 mg PO BID 05/14/18 [History] Pantoprazole Sodium [Protonix] 40 mg PO DAILY 05/14/18 [History] Spironolactone [Aldactone] 25 mg PO DAILY 01/11/19 [History] Warfarin [Coumadin] 2 mg PO SUMOWETHFR 01/11/19 [History] Amiodarone HCl 200 mg PO DAILY 01/12/19 [History] Insulin Glargine,Hum.rec.anlog [Lantus Solostar] 30 unit SQ HS 02/13/19 [History] Insulin LISPRO [Humalog Kwikpen U-100] 0 unit SQ TIDWM 02/13/19 [History] Lactulose 10 gm PO Q72H PRN 02/13/19 [History] Semaglutide [Ozempic] 0.25 mg SQ FR 04/08/19 [History] Clopidogrel [Plavix] 75 mg PO QAM 04/10/19 [History] Diltiazem HCl [Tiazac] 120 mg PO DAILY 04/10/19 [History] Potassium Chloride [Klor-Con 10] 20 meq PO BID 04/10/19 [History] Docusate [Colace] 100 mg PO DAILY PRN 04/16/19 [History] Gabapentin [Neurontin] 300 mg PO BID 04/16/19 [History] Magnesium Citrate [Citroma] 150 ml PO PRN PRN 04/16/19 [History] Warfarin [Coumadin] 1 mg PO TUSA 04/16/19 [History] levETIRAcetam [Keppra] 500 mg PO Q12HR #120 tablet 04/18/19 [Rx] Allergies/Adverse Reactions: Allergy/AdvReac Type Severity Reaction Status Date / Time phenylbutazone Allergy Rash Verified 05/14/18 14:15 [From Butazolidin] amitriptyline [From Elavil] AdvReac Headache Verified 05/14/18 14:15 codeine AdvReac Headache Verified 05/14/18 14:15 desipramine AdvReac Headache Verified 05/14/18 14:15 lisinopril AdvReac Cough Verified 05/14/18 14:15 meperidine [From Demerol] AdvReac Headache Verified 05/14/18 14:15 nalbuphine AdvReac Headache Verified 05/14/18 14:15 Nortriptyline AdvReac Headache Verified 05/14/18 14:15 tiagabine AdvReac Headache Verified 05/14/18 14:15 Date of admission: 04/16/19 21:47 Primary care physician: PCP NONE Consults: 04/16/19 21:11 Consult to Neurology [CONS] Stat Consulting Provider: Neurology [facility] Reason for Consult: AMS, Shaking, Hx of CVA, EST Time Notified: 21:12 Call Completed: No 04/16/19 22:48 Consult to Ranch Manager [CONS] Routine Reason for SW Consult: Possible ECF - Constitutional Vitals: Temp Pulse Resp BP Pulse Ox 97.7 F 60 18 116/50 100 04/18/19 08:02 04/18/19 08:02 04/18/19 08:02 04/18/19 08:02 04/18/19 08:02 Exam: General: Alert and oriented x 3, no longer having twitching movement of the extremities HEENT: pupils equal, round and reactive. Cardiovascular:Normal S1 & S2, no rubs, murmurs or gallops. No JVD. Pulse regular. Lungs:Normal breath sounds, no wheezes or crackles. Abdomen:Soft, non-tender, no rigidity. Extremities:No deformity, no edema or tenderness, no joint swelling or clubbing. Neurological: non-focal - Patient Status Disposition: Home, Self-Care Condition: Fair Overall status at discharge: patient is progressing back to baseline - Discharge Instructions Instructions: Atrial Fibrillation (DC), Diabetes Mellitus Type 2 in Adults (DC) Follow Up With: NONE,PCP [Primary Care Provider] - Dm Qiu MD [Partnered Physician] - - Diet and Activity Activity: resume usual activities as tolerated Diet: diabetic diet
--- NOTE | 2019-04-18 11:29 | Neurology Progress Note ---
Date of Encounter: 04/18/19 Time of Encounter: 10:00 Assessment and Plan (1) Seizure Current Visit: Yes Status: Acute Patient having no memory of the seizure activity lends credence to the idea that this may have been an epileptiform seizure. Patient not remembering the entirety of yesterday points to her underlying psychiatric diagnosis contributing to these episodes. EEG was performed with read currently pending. Patient taking Keppra 500mg BID and will follow with neurology outpatient. Case discussed and seen under the supervision of Dr. Qiu, attending neurologist. Subjective Principal diagnosis: Seizure Like Activity Interval history: Ms. Fischer was seen at her bedside today having just finished her EEG. She admits to feeling "really tired" and denies any numbness, tingling, weakness, loss of consciousness, dizziness or vertigo at this time. She is somnolent today during interview but does cooperate. She reports not remembering "anything from yesterday." She states she feels better today but remains tired. She admits to similar episodes in the past where she has twitching of her hands and feet but denies losing consciousness and retains memory of these events which differs from her seizure like activity yesterday which she retains no memory of. She admits to previous diagnosis of anxiety for which she takes Lexapro 20mg but denies it helping with her episodes. Objective - Constitutional Vitals: Temp Pulse Resp BP Pulse Ox 97.7 F 60 18 116/50 100 04/18/19 08:02 04/18/19 08:02 04/18/19 08:02 04/18/19 08:02 04/18/19 08:02 - Neurological Exam Sensorimotor examination: Present: intact. Absent: pronator drift, flaccid paralysis, hemineglect, rigidity Motor Examination: Present: grossly full strength in all extremities Sensation intact: Present: intact Reflex and gait examination: other (unable to assess gait due to fall risk from current somnolence) Reflexes: Biceps: 2+, Triceps: 2+, Brachioradialis: 2+, Patella: 2+, Achilles: 2+ Mental Status Examination: Present: awake, alert, oriented to person, oriented to place, oriented to time, follows commands appropriately, answers questions appropriately, drowsy (Patient drowsy due to sedation) Cranial nerve examination: Present: PERRL, EOMI, visual [place] intact, corneal reflexes brisk symmetrically, sensory to face intact, mastication intact, no facial asymmetry is present, no dysarthria, hearing is intact symmetrically, soft palate elevates bilaterally upon phonation, tongue protrudes midline Cerebellar examination: Present: performs finger to nose and heel to webb symmetrically without ataxia, no difficulty with rapid alternating movements Results - Laboratory Findings CBC and BMP: 04/18/19 04:21 04/18/19 04:21 Abnormal lab findings: Abnormal lab results Hgb 11.2 g/dL (11.5-15.4) L 04/18/19 04:21 Hct 34.6 % (35.3-44.9) L 04/18/19 04:21 MCV 82.6 fL (83.0-100.0) L 04/18/19 04:21 MCH 26.7 pg (28.0-33.3) L 04/18/19 04:21 MCHC 31.0 g/dL (31.6-35.5) L 04/16/19 18:18 Neutrophils # 9.2 K/mcL (1.6-8.9) H 04/17/19 07:34 PT 38.6 Seconds (9.4-12.1) H 04/18/19 04:21 APTT 37.2 Seconds (26.0-36.0) H 04/17/19 04:05 Sodium 134 mEq/L (136-145) L 04/18/19 04:21 Carbon Dioxide 22 mEq/L (23-29) L 04/17/19 04:05 BUN 42 mg/dL (8-23) H 04/18/19 04:21 Creatinine 1.69 mg/dL (0.60-1.20) H 04/18/19 04:21 Est GFR ( Amer) 36 (> 60) L 04/18/19 04:21 Est GFR (Non-Af Amer) 30 (> 60) L 04/18/19 04:21 Glucose 122 mg/dL (70-105) H 04/18/19 04:21 POC Glucose 159 mg/dL (70-99) H 04/17/19 20:56 Hemoglobin A1c 5.8 % (-5.6) H 04/17/19 04:05 Lactic Acid 3.2 mmol/L (0.5-2.2) H 04/17/19 07:34 Creatine Kinase 24 Units/L (30-223) L 04/17/19 07:34 Troponin I 0.04 ng/mL (< 0.04) H* 04/17/19 07:34 B-Natriuretic Peptide 125 pg/mL (Less than 100) H 04/16/19 18:18 Ur Leukocyte Esterase Small (Negative) H 04/16/19 19:14 Urine Microscopic WBC 5-15 per hpf (0-3) H 04/16/19 19:14 Ur Squamous Epith Cells Many per lpf (None-Few) H 04/16/19 19:14 Ur Culture Indicated? YES (NO) A 04/16/19 19:14 Consult Discharge Plan - Plan Instructions: Atrial Fibrillation (DC), Diabetes Mellitus Type 2 in Adults (DC) Referrals: Adalberto Quijano MD [Partnered Physician] - 04/21/19 9:45 am (Please follow up as schedule...) Dm Qiu MD [Partnered Physician] - 05/03/19 10:00 am (Please follow up as schedule....) Prescriptions: levETIRAcetam [Keppra] 500 mg PO Q12HR #120 tablet
--- NOTE | 2019-04-18 13:53 | Electrocardiograph Report ---
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
--- NOTE | 2019-04-18 14:10 | Electrocardiograph Report ---
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
--- NOTE | 2019-04-18 14:15 | EEG/EMG/Oth Biometrics Report ---
EEG Procedure Report Date of procedure: 04/18/19 EEG Procedure: Routine EEG Procedure Note: This EEG was acquired with standard international 10-20 system with EKG recording. The background EEG activity was characterized by sleeping records from that beging and until the very end of the study did the presence of posterior dominant alpha rhythm showing up with the best frequency up to 10 Hz. The background activity was reactive to eye openings. Sleep stages were characterized by the presence of background fragmentation, vertex waves, K complexes, and sleep spindles. There are no electrographic seizures identified during this tracing. There are no epileptiform discharges or focal slowing noted during this recording. Photic stimulation produced no abnormalities. Hyperventilation procedure was not performed. EKG tracing showed normal sinus rhythm. Impression: This is essentially a normal awake and asleep EEG. Clinical Correlation: Normal EEGs, however, do not exclude epilepsy. Clinical correlation advised.
[2019-04-18 16:26] VITALS: BP 142/69
[2019-04-18] MEDS ORDERED: *HR* Water for inj. (sterile) Vial IV ONE (17:44)
[2019-04-18] MEDS ORDERED: Warfarin perPT PO PRN (18:00)
[2019-04-19] MEDS ORDERED: *HR* Warfarin 1 MG TABLET PO SCH (18:00)
[2019-04-22] MEDS ORDERED: (Semaglutide [Ozempic] 0.25 MG) SQ SCH (22:03)
== END 2019-04-18 17:45 | disposition home or self-care (01) ==
LOC: 2ANU 17:38 → EMEROOARM 17:38 → SUATTDRO 21:47 → 2ANU 22:08
PROVIDERS: ADMIT Internal Medicine; ATTEND Internal Medicine

== ENCOUNTER 2019-05-10 02:00 | Observation (INO) ==
[2019-05-10] MEDS ORDERED: Ondansetron 4 MG/2 ML VIAL IVP ONE (02:11)
--- NOTE | 2019-05-10 02:15 | Emergency Department Note ---
Disposition Clinical Impression: Elevated INR, FLORES (acute kidney injury), Bladder distension UTI (urinary tract infection) Qualifiers: Urinary tract infection type: acute cystitis Hematuria presence: without hematuria Qualified Code(s): N30.00 - Acute cystitis without hematuria Pneumonia Qualifiers: Pneumonia type: due to unspecified organism Laterality: bilateral Lung location: unspecified part of lung Qualified Code(s): J18.9 - Pneumonia, unspecified organism Disposition: Admitted As Inpatient Condition: Fair Time of Disposition: 05:51 General Adult HPI - General Stated complaint: general illness Time Seen by Provider: 05/10/19 02:09 Nursing Notes Reviewed: Yes Vital Signs Reviewed: Yes - History of Present Illness HPI Narrative: 73-year-old female presents emergency department via EMS after concern the patient had decreased level of consciousness earlier today while at home. Also reports that she has been vomiting. Patient has been reporting intermittent left lower quadrant abdominal pain as well. She has had multiple surgeries. No fevers, chest pain. reports that she has had some falls as she has difficulty with ambulation. States that she is on blood thinning medication. States that she had a very low impact when she fell. The fall today. Patient has vomited several times today, nonbloody, not coffee-ground. - Related Data Home Medications Medication Instructions Recorded Confirmed Escitalopram [Lexapro] 20 mg PO DAILY 05/16/15 04/29/19 Rosuvastatin [Crestor] 40 mg PO DAILY 05/16/15 04/29/19 traZODone [TraZODone] 50 mg PO HS PRN 03/19/17 04/29/19 Ranolazine [Ranexa] 1,000 mg PO BID 01/03/18 04/29/19 Anastrozole [Arimidex] 1 mg PO DAILY 05/14/18 04/29/19 Isosorbide MONOnitrate (24 HR) 30 mg PO DAILY 05/14/18 04/29/19 [Imdur] Pantoprazole Sodium [Protonix] 40 mg PO DAILY 05/14/18 04/29/19 Spironolactone [Aldactone] 25 mg PO DAILY 01/11/19 04/29/19 Warfarin [Coumadin] 2 mg PO SUMOWETHFR 01/11/19 04/29/19 Amiodarone HCl 200 mg PO DAILY 01/12/19 04/29/19 Insulin LISPRO [Humalog Kwikpen 8 unit SQ TIDWM 02/13/19 04/29/19 U-100] Lactulose 10 gm PO Q72H PRN 02/13/19 04/29/19 Semaglutide [Ozempic] 0.25 mg SQ FR 04/08/19 04/29/19 Clopidogrel [Plavix] 75 mg PO QAM 04/10/19 04/29/19 Diltiazem HCl [Tiazac] 120 mg PO DAILY 04/10/19 04/29/19 Potassium Chloride [Klor-Con 10] 20 meq PO BID 04/10/19 04/29/19 Warfarin [Coumadin] 1 mg PO TUSA 04/16/19 04/29/19 Furosemide [Lasix] 20 mg PO BID 04/23/19 04/29/19 Cholecalciferol (Vitamin D3) 1,000 unit PO DAILY 04/29/19 04/29/19 [Vitamin D3] Previous Rx's Medication Instructions Recorded levETIRAcetam [Keppra] 500 mg PO Q12HR #120 tablet 04/18/19 Acetaminophen [Tylenol] 650 mg PO Q6HR PRN tablet 05/06/19 Insulin DETEMIR [Levemir] 20 unit SQ HS x5fvqpm 05/06/19 Polyethylene Glycol 3350 [MiraLAX] 17 gm PO DAILY powd.pack 05/06/19 Sulfamethoxazole/Trimeth DS 0.5 each PO BID 7 Days #14 tablet 05/06/19 [Bactrim Ds] Allergies Allergy/AdvReac Type Severity Reaction Status Date / Time phenylbutazone Allergy Rash Verified 05/14/18 14:15 [From Butazolidin] amitriptyline [From Elavil] AdvReac Headache Verified 05/14/18 14:15 codeine AdvReac Headache Verified 05/14/18 14:15 desipramine AdvReac Headache Verified 05/14/18 14:15 lisinopril AdvReac Cough Verified 05/14/18 14:15 meperidine [From Demerol] AdvReac Headache Verified 05/14/18 14:15 nalbuphine AdvReac Headache Verified 05/14/18 14:15 Nortriptyline AdvReac Headache Verified 05/14/18 14:15 tiagabine AdvReac Headache Verified 05/14/18 14:15 All systems ED: reviewed and negative except as stated. Review of Systems: As Per HPI Constitutional: Denies: fever Cardiovascular: Denies: chest pain Respiratory: Denies: dyspnea Gastrointestinal: Reports: abdominal pain, nausea, vomiting Genitourinary: Denies: urgency, dysuria, frequency Musculoskeletal: Denies: back pain Neurological: Denies: headache Past Medical History - Past Medical History Attestation: Yes The following information was validated with the patient. Medical history: Reports: arthritis, atrial fibrillation, cancer, CHF, coronary artery disease, CVA, diabetes, GERD, hypertension, myocardial infarction, renal disease, other Surgical history: Reports: breast surgery Psychiatric history: Reports: depression, other OCULAR CARE TECHNICIAN history: Reports: no OCULAR CARE TECHNICIAN history - Social History Smoking Status: Never smoker Smokeless Tobacco Status: No Alcohol use: Reports: rarely Drug use: Reports: none Physical Exam - General Limitations: no limitations General appearance: alert, in no apparent distress - Head Head exam: normocephalic - Eye Eye exam: Present: EOMI - ENT ENT exam: mucous membranes moist - Neck Neck exam: Present: trachea midline - Chest Chest inspection: Present: symmetric chest wall rise - Respiratory Respiratory exam: Present: normal lung sounds bilaterally. Absent: respiratory distress, accessory muscle use - Cardiovascular Cardiovascular exam: Present: regular rate - Abdominal Exam Abdominal exam: Present: soft, tenderness. Absent: distention, guarding, rebound, rigidity Abdominal tenderness: Present: LLQ, moderate - Extremities Exam Extremities exam: Present: normal capillary refill - Back Exam Back exam: Present: full ROM - Neurological Exam Neurological exam: Present: alert, oriented X3, CN II-XII intact - Psychiatric Psychiatric exam: Present: normal affect, normal mood - Skin Skin exam: Present: warm, dry, intact, normal color. Absent: rash Course Vital Signs Temperature 98.1 F 05/10/19 02:08 Pulse Rate 59 05/10/19 02:08 Respiratory Rate 18 05/10/19 02:08 Blood Pressure 77/48 05/10/19 02:08 O2 Sat by Pulse Oximetry 98 05/10/19 02:08 Temperature 98.1 F 05/10/19 02:08 Pulse Rate 60 05/10/19 02:51 Respiratory Rate 20 05/10/19 02:51 Blood Pressure 114/54 05/10/19 02:51 O2 Sat by Pulse Oximetry 97 05/10/19 02:51 Oxygen Delivery Oxygen Delivery Room Air Medical Decision Making - MDM Narrative Medical decision making narrative: 73-year-old female since the emergency department with concern for an episode of decreased level of consciousness earlier today with vomiting. With her recent falls and being on Coumadin, we will obtain CT scan of the head and neck. Also, we will obtain CT scan of abdomen and pelvis as patient has moderate left lower quadrant abdominal pain in the setting of vomiting. Patient has elevated INR. She is not actively bleeding at this time. She does take Coumadin. We will not administer any vitamin K or FFP at this time. We recommend holding her Coumadin dose until her INR corrects. Patient has elevated creatinine. History of chronic kidney disease, but appears to have an acute kidney injury. This most likely secondary to her dehydration CT scan of the abdomen and pelvis reveals evidence of significant urinary bladder distention with gas. Patient did have recent instrumentation on previous admission per reports from family. Other concerns would be for the p ossibility of infection. Urine reveals bacteria and white blood cells, but no nitrites or leukocyte esterase. Urine culture has been obtained Also, there is a possibility of pneumonia by appearance of CT scan as well. White blood cell count was normal, lactic acid was normal. Patient afebrile, not tachycardic here. Initial blood pressure appeared to be low, however, adjustment of the blood pressure cuff revealed a significantly improved blood pressure with map greater than 65. Patient remained hemodynamically stable throughout her stay here. Blood cultures were obtained. After discussion of the patient's presentation with Dr. rodríguez, we decided to provide patient with Unasyn to cover both a possible urinary tract infection as well as pneumonia. He agreed to accept the patient for admission. Spoke to family regarding renal cyst as well as myolipoma. They are aware. EKG did not reveal any ischemic ST changes. Troponin at 0.06, it has been higher in the past, patient not reporting any chest discomfort. Abdomen/Pelvis CT 05/10/19 02:09 IMPRESSION: Marked urinary bladder distention with nondependent gas, the latter of which could reflect recent instrumentation/catheterization versus cystitis. No obstructive uropathy. Regarding the kidneys, the indeterminate cysts are not substantially changed in size. Consideration could be given to follow-up renal protocol MRI or CT. Patchy right basilar tree-in-bud opacities, suspicious for infectious or inflammatory bronchiolitis. Aspiration sequela is a consideration given basilar pendant distribution. D/ / Erwin Hernandez / Erwin Hernandez Interpreting Provider: Erwin Hernandez Cervical Spine CT 05/10/19 02:09 IMPRESSION: Stable CT cervical spine with no acute abnormality and advanced multilevel degenerative changes most pronounced at C5-C6 and C6-C7 as described. D/ / Jaylen Roach MD / Jaylen Roach MD Interpreting Provider: Jaylen Roach MD Head CT 05/10/19 02:09 IMPRESSION: Stable CT brain with no acute intracranial abnormality. D/ / Jaylen Roach MD / Jaylen Roach MD Interpreting Provider: Jaylen Roach MD Chest X-Ray 05/10/19 02:10 IMPRESSION: No acute process. D/ / Jaylen Roach MD / Jaylen Roach MD Interpreting Provider: Jaylen Roach MD - Lab Data Result diagrams: 05/10/19 02:36 05/10/19 02:36 Lab Results 05/10/19 05/10/19 05/10/19 Range/Units 02:36 02:36 02:36 WBC 8.2 (4.3-11.1) K/mcL RBC 4.64 (3.82-4.97) M/mcL Hgb 12.5 (11.5-15.4) g/dL Hct 37.3 (35.3-44.9) % MCV 80.4 L (83.0-100.0) fL MCH 26.9 L (28.0-33.3) pg MCHC 33.5 (31.6-35.5) g/dL RDW 15.7 H (11.5-14.5) % Plt Count 168 (140-400) K/mcL MPV 9.8 (9.4-12.4) fL Immature Gran % 0.9 (0-4) % Seg Neutrophils % 86.6 % Lymphocytes % 7.9 % Monocytes % 3.7 % Eosinophils % 0.5 % Basophils % 0.4 % Neutrophils # 7.1 (1.6-8.9) K/mcL Lymphocytes # 0.7 (0.6-4.6) K/mcL Monocytes # 0.3 (0.0-1.3) K/mcL Eosinophils # 0.0 (0.0-0.6) K/mcL Basophils # 0.0 (0.0-0.2) K/mcL PT 62.0 H* D (9.4-12.1) Seconds INR 5.4 H* D Sodium 133 L (136-145) mEq/L Potassium 4.9 (3.5-5.1) mEq/L Chloride 100 (98-107) mEq/L Carbon Dioxide 18 L (23-29) mEq/L BUN 39 H (8-23) mg/dL Creatinine 2.52 H (0.60-1.20) mg/dL Est GFR ( Amer) 23 L (> 60) Est GFR (Non-Af Amer) 19 L (> 60) BUN/Creatinine Ratio 15 (6-26) Glucose 262 H (70-105) mg/dL Calculated Osmolality 294 (280-300) Lactic Acid (0.5-2.2) mmol/L Calcium 9.8 (8.6-10.3) mg/dL Total Bilirubin 0.4 (0.3-1.0) mg/dL AST 24 (13-39) Units/L ALT 35 (7-52) Units/L Alkaline Phosphatase 46 (34-104) Units/L Troponin I 0.06 H* (< 0.04) ng/mL Serum Total Protein 6.8 (6.4-8.9) g/dL Albumin 4.1 (3.5-5.7) g/dL Globulin 2.7 (2.4-3.5) g/dL Albumin/Globulin Ratio 1.5 (1.1-2.2) Lipase 75 (11-82) Units/L Urine Color (Yellow) Urine Clarity (Clear) Urine pH (5.0-8.0) pH Units Ur Specific [place] (1.010-1.025) Urine Protein (Neg-Trace) mg/dL Urine Glucose (UA) (Normal) mg/dL Urine Ketones (Negative) mg/dL Urine Blood (Negative) Urine Nitrite (Negative) Urine Bilirubin (Negative) Urine Urobilinogen (Normal) mg/dL Ur Leukocyte Esterase (Negative) Urine Microscopic RBC (0-3) per hpf Urine Microscopic WBC (0-3) per hpf Ur Squamous Epith Cells (None-Few) per lpf Urine Bacteria (None-Few) per hpf Hyaline Casts (None-Few) per lpf Ur Culture Indicated? (NO) Urine Creatinine mg/dL Urine Sodium mEq/L 05/10/19 05/10/19 05/10/19 Range/Units 02:56 04:58 04:58 WBC (4.3-11.1) K/mcL RBC (3.82-4.97) M/mcL Hgb (11.5-15.4) g/dL Hct (35.3-44.9) % MCV (83.0-100.0) fL MCH (28.0-33.3) pg MCHC (31.6-35.5) g/dL RDW (11.5-14.5) % Plt Count (140-400) K/mcL MPV (9.4-12.4) fL Immature Gran % (0-4) % Seg Neutrophils % % Lymphocytes % % Monocytes % % Eosinophils % % Basophils % % Neutrophils # (1.6-8.9) K/mcL Lymphocytes # (0.6-4.6) K/mcL Monocytes # (0.0-1.3) K/mcL Eosinophils # (0.0-0.6) K/mcL Basophils # (0.0-0.2) K/mcL PT (9.4-12.1) Seconds INR Sodium (136-145) mEq/L Potassium (3.5-5.1) mEq/L Chloride (98-107) mEq/L Carbon Dioxide (23-29) mEq/L BUN (8-23) mg/dL Creatinine (0.60-1.20) mg/dL Est GFR ( Amer) (> 60) Est GFR (Non-Af Amer) (> 60) BUN/Creatinine Ratio (6-26) Glucose (70-105) mg/dL Calculated Osmolality (280-300) Lactic Acid 0.9 (0.5-2.2) mmol/L Calcium (8.6-10.3) mg/dL Total Bilirubin (0.3-1.0) mg/dL AST (13-39) Units/L ALT (7-52) Units/L Alkaline Phosphatase (34-104) Units/L Troponin I (< 0.04) ng/mL Serum Total Protein (6.4-8.9) g/dL Albumin (3.5-5.7) g/dL Globulin (2.4-3.5) g/dL Albumin/Globulin Ratio (1.1-2.2) Lipase (11-82) Units/L Urine Color Yellow (Yellow) Urine Clarity Clear (Clear) Urine pH 6.0 (5.0-8.0) pH Units Ur Specific [place] 1.016 (1.010-1.025) Urine Protein 30 H (Neg-Trace) mg/dL Urine Glucose (UA) Normal (Normal) mg/dL Urine Ketones Negative (Negative) mg/dL Urine Blood Negative (Negative) Urine Nitrite Negative (Negative) Urine Bilirubin Negative (Negative) Urine Urobilinogen Normal (Normal) mg/dL Ur Leukocyte Esterase Negative (Negative) Urine Microscopic RBC 3-5 H (0-3) per hpf Urine Microscopic WBC 5-15 H (0-3) per hpf Ur Squamous Epith Cells Many H (None-Few) per lpf Urine Bacteria Many H (None-Few) per hpf Hyaline Casts Few (None-Few) per lpf Ur Culture Indicated? YES A (NO) Urine Creatinine 57 mg/dL Urine Sodium 58.5 mEq/L - EKG Data EKG #1 EKG attestation: Yes I reviewed and interpreted this EKG. EKG results narrative: 2:15 Heart rate 60 bpm, no P waves, QRS duration 167 ms, Atrial ventricular dual paced rhythm.
--- NOTE | 2019-05-10 02:24 | Emergency Department Note ---
Disposition Clinical Impression: Elevated INR, FLORES (acute kidney injury), Bladder distension UTI (urinary tract infection) Qualifiers: Urinary tract infection type: acute cystitis Hematuria presence: without hematuria Qualified Code(s): N30.00 - Acute cystitis without hematuria Pneumonia Qualifiers: Pneumonia type: due to unspecified organism Laterality: bilateral Lung location: unspecified part of lung Qualified Code(s): J18.9 - Pneumonia, unspecified organism Disposition: Admitted As Inpatient Condition: Fair Time of Disposition: 05:51 General Adult HPI - General Chief complaint: ED Nausea/Vomiting/Diarrhea Stated complaint: general illness Time Seen by Provider: 05/10/19 02:09 Source: EMS Limitations: no limitations Nursing Notes Reviewed: Yes Vital Signs Reviewed: Yes - History of Present Illness Pain Scale: 0 - Related Data Home Medications Medication Instructions Recorded Confirmed Escitalopram [Lexapro] 20 mg PO DAILY 05/16/15 04/29/19 Rosuvastatin [Crestor] 40 mg PO DAILY 05/16/15 04/29/19 traZODone [TraZODone] 50 mg PO HS PRN 03/19/17 04/29/19 Ranolazine [Ranexa] 1,000 mg PO BID 01/03/18 04/29/19 Anastrozole [Arimidex] 1 mg PO DAILY 05/14/18 04/29/19 Isosorbide MONOnitrate (24 HR) 30 mg PO DAILY 05/14/18 04/29/19 [Imdur] Pantoprazole Sodium [Protonix] 40 mg PO DAILY 05/14/18 04/29/19 Spironolactone [Aldactone] 25 mg PO DAILY 01/11/19 04/29/19 Warfarin [Coumadin] 2 mg PO SUMOWETHFR 01/11/19 04/29/19 Amiodarone HCl 200 mg PO DAILY 01/12/19 04/29/19 Insulin LISPRO [Humalog Kwikpen 8 unit SQ TIDWM 02/13/19 04/29/19 U-100] Lactulose 10 gm PO Q72H PRN 02/13/19 04/29/19 Semaglutide [Ozempic] 0.25 mg SQ FR 04/08/19 04/29/19 Clopidogrel [Plavix] 75 mg PO QAM 04/10/19 04/29/19 Diltiazem HCl [Tiazac] 120 mg PO DAILY 04/10/19 04/29/19 Potassium Chloride [Klor-Con 10] 20 meq PO BID 04/10/19 04/29/19 Warfarin [Coumadin] 1 mg PO TUSA 04/16/19 04/29/19 Furosemide [Lasix] 20 mg PO BID 04/23/19 04/29/19 Cholecalciferol (Vitamin D3) 1,000 unit PO DAILY 04/29/19 04/29/19 [Vitamin D3] Previous Rx's Medication Instructions Recorded levETIRAcetam [Keppra] 500 mg PO Q12HR #120 tablet 04/18/19 Acetaminophen [Tylenol] 650 mg PO Q6HR PRN tablet 05/06/19 Insulin DETEMIR [Levemir] 20 unit SQ HS [id number] 05/06/19 Polyethylene Glycol 3350 [MiraLAX] 17 gm PO DAILY powd.pack 05/06/19 Sulfamethoxazole/Trimeth DS 0.5 each PO BID 7 Days #14 tablet 05/06/19 [Bactrim Ds] Allergies Allergy/AdvReac Type Severity Reaction Status Date / Time phenylbutazone Allergy Rash Verified 05/14/18 14:15 [From Butazolidin] amitriptyline [From Elavil] AdvReac Headache Verified 05/14/18 14:15 codeine AdvReac Headache Verified 05/14/18 14:15 desipramine AdvReac Headache Verified 05/14/18 14:15 lisinopril AdvReac Cough Verified 05/14/18 14:15 meperidine [From Demerol] AdvReac Headache Verified 05/14/18 14:15 nalbuphine AdvReac Headache Verified 05/14/18 14:15 Nortriptyline AdvReac Headache Verified 05/14/18 14:15 tiagabine AdvReac Headache Verified 05/14/18 14:15 Constitutional: Denies: fever Cardiovascular: Denies: chest pain Respiratory: Denies: dyspnea Gastrointestinal: Reports: abdominal pain, nausea, vomiting Genitourinary: Denies: urgency, dysuria, frequency Musculoskeletal: Denies: back pain Neurological: Denies: headache Past Medical History - Past Medical History Medical history: Reports: arthritis, atrial fibrillation, cancer, CHF, coronary artery disease, CVA, diabetes, GERD, hypertension, myocardial infarction, renal disease, other Surgical history: Reports: breast surgery Psychiatric history: Reports: depression, other 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 - Social History Smoking Status: Never smoker Smokeless Tobacco Status: No Alcohol use: Reports: rarely Drug use: Reports: none Physical Exam - General Limitations: no limitations General appearance: alert, in no apparent distress Course Vital Signs Temperature 98.1 F 05/10/19 02:08 Pulse Rate 59 05/10/19 02:08 Respiratory Rate 18 05/10/19 02:08 Blood Pressure 77/48 05/10/19 02:08 O2 Sat by Pulse Oximetry 98 05/10/19 02:08 Temperature 98.1 F 05/10/19 02:08 Pulse Rate 60 05/10/19 02:51 Respiratory Rate 20 05/10/19 02:51 Blood Pressure 114/54 05/10/19 02:51 O2 Sat by Pulse Oximetry 97 05/10/19 02:51 Oxygen Delivery Oxygen Delivery Room Air Medical Decision Making - Medical Records Medical records reviewed: Yes I reviewed the patient's medical records. - Lab Data Lab results reviewed: Yes I reviewed the patient's lab results. Result diagrams: 05/10/19 02:36 05/10/19 02:36 Lab Results 05/10/19 05/10/19 05/10/19 Range/Units 02:36 02:36 02:36 WBC 8.2 (4.3-11.1) K/mcL RBC 4.64 (3.82-4.97) M/mcL Hgb 12.5 (11.5-15.4) g/dL Hct 37.3 (35.3-44.9) % MCV 80.4 L (83.0-100.0) fL MCH 26.9 L (28.0-33.3) pg MCHC 33.5 (31.6-35.5) g/dL RDW 15.7 H (11.5-14.5) % Plt Count 168 (140-400) K/mcL MPV 9.8 (9.4-12.4) fL Immature Gran % 0.9 (0-4) % Seg Neutrophils % 86.6 % Lymphocytes % 7.9 % Monocytes % 3.7 % Eosinophils % 0.5 % Basophils % 0.4 % Neutrophils # 7.1 (1.6-8.9) K/mcL Lymphocytes # 0.7 (0.6-4.6) K/mcL Monocytes # 0.3 (0.0-1.3) K/mcL Eosinophils # 0.0 (0.0-0.6) K/mcL Basophils # 0.0 (0.0-0.2) K/mcL PT 62.0 H* D (9.4-12.1) Seconds INR 5.4 H* D Sodium 133 L (136-145) mEq/L Potassium 4.9 (3.5-5.1) mEq/L Chloride 100 (98-107) mEq/L Carbon Dioxide 18 L (23-29) mEq/L BUN 39 H (8-23) mg/dL Creatinine 2.52 H (0.60-1.20) mg/dL Est GFR ( Amer) 23 L (> 60) Est GFR (Non-Af Amer) 19 L (> 60) BUN/Creatinine Ratio 15 (6-26) Glucose 262 H (70-105) mg/dL Calculated Osmolality 294 (280-300) Lactic Acid (0.5-2.2) mmol/L Calcium 9.8 (8.6-10.3) mg/dL Total Bilirubin 0.4 (0.3-1.0) mg/dL AST 24 (13-39) Units/L ALT 35 (7-52) Units/L Alkaline Phosphatase 46 (34-104) Units/L Troponin I 0.06 H* (< 0.04) ng/mL Serum Total Protein 6.8 (6.4-8.9) g/dL Albumin 4.1 (3.5-5.7) g/dL Globulin 2.7 (2.4-3.5) g/dL Albumin/Globulin Ratio 1.5 (1.1-2.2) Lipase 75 (11-82) Units/L Urine Color (Yellow) Urine Clarity (Clear) Urine pH (5.0-8.0) pH Units Ur Specific [place]olia (1.010-1.025) Urine Protein (Neg-Trace) mg/dL Urine Glucose (UA) (Normal) mg/dL Urine Ketones (Negative) mg/dL Urine Blood (Negative) Urine Nitrite (Negative) Urine Bilirubin (Negative) Urine Urobilinogen (Normal) mg/dL Ur Leukocyte Esterase (Negative) Urine Microscopic RBC (0-3) per hpf Urine Microscopic WBC (0-3) per hpf Ur Squamous Epith Cells (None-Few) per lpf Urine Bacteria (None-Few) per hpf Hyaline Casts (None-Few) per lpf Ur Culture Indicated? (NO) Urine Creatinine mg/dL Urine Sodium mEq/L 05/10/19 05/10/19 05/10/19 Range/Units 02:56 04:58 04:58 WBC (4.3-11.1) K/mcL RBC (3.82-4.97) M/mcL Hgb (11.5-15.4) g/dL Hct (35.3-44.9) % MCV (83.0-100.0) fL MCH (28.0-33.3) pg MCHC (31.6-35.5) g/dL RDW (11.5-14.5) % Plt Count (140-400) K/mcL MPV (9.4-12.4) fL Immature Gran % (0-4) % Seg Neutrophils % % Lymphocytes % % Monocytes % % Eosinophils % % Basophils % % Neutrophils # (1.6-8.9) K/mcL Lymphocytes # (0.6-4.6) K/mcL Monocytes # (0.0-1.3) K/mcL Eosinophils # (0.0-0.6) K/mcL Basophils # (0.0-0.2) K/mcL PT (9.4-12.1) Seconds INR Sodium (136-145) mEq/L Potassium (3.5-5.1) mEq/L Chloride (98-107) mEq/L Carbon Dioxide (23-29) mEq/L BUN (8-23) mg/dL Creatinine (0.60-1.20) mg/dL Est GFR ( Amer) (> 60) Est GFR (Non-Af Amer) (> 60) BUN/Creatinine Ratio (6-26) Glucose (70-105) mg/dL Calculated Osmolality (280-300) Lactic Acid 0.9 (0.5-2.2) mmol/L Calcium (8.6-10.3) mg/dL Total Bilirubin (0.3-1.0) mg/dL AST (13-39) Units/L ALT (7-52) Units/L Alkaline Phosphatase (34-104) Units/L Troponin I (< 0.04) ng/mL Serum Total Protein (6.4-8.9) g/dL Albumin (3.5-5.7) g/dL Globulin (2.4-3.5) g/dL Albumin/Globulin Ratio (1.1-2.2) Lipase (11-82) Units/L Urine Color Yellow (Yellow) Urine Clarity Clear (Clear) Urine pH 6.0 (5.0-8.0) pH Units Ur Specific [place] 1.016 (1.010-1.025) Urine Protein 30 H (Neg-Trace) mg/dL Urine Glucose (UA) Normal (Normal) mg/dL Urine Ketones Negative (Negative) mg/dL Urine Blood Negative (Negative) Urine Nitrite Negative (Negative) Urine Bilirubin Negative (Negative) Urine Urobilinogen Normal (Normal) mg/dL Ur Leukocyte Esterase Negative (Negative) Urine Microscopic RBC 3-5 H (0-3) per hpf Urine Microscopic WBC 5-15 H (0-3) per hpf Ur Squamous Epith Cells Many H (None-Few) per lpf Urine Bacteria Many H (None-Few) per hpf Hyaline Casts Few (None-Few) per lpf Ur Culture Indicated? YES A (NO) Urine Creatinine 57 mg/dL Urine Sodium 58.5 mEq/L - Radiology Data Radiology results reviewed: Yes I reviewed the patient's radiology results. Abdomen/Pelvis CT 05/10/19 02:09 IMPRESSION: Marked urinary bladder distention with nondependent gas, the latter of which could reflect recent instrumentation/catheterization versus cystitis. No obstructive uropathy. Regarding the kidneys, the indeterminate cysts are not substantially changed in size. Consideration could be given to follow-up renal protocol MRI or CT. Patchy right basilar tree-in-bud opacities, suspicious for infectious or inflammatory bronchiolitis. Aspiration sequela is a consideration given basilar pendant distribution. D/ / Erwin Hernandez / Erwin Hernandez Interpreting Provider: Erwin Hernandez Cervical Spine CT 05/10/19 02:09 IMPRESSION: Stable CT cervical spine with no acute abnormality and advanced multilevel degenerative changes most pronounced at C5-C6 and C6-C7 as described. D/ / Jaylen Roach MD / Jaylen Roach MD Interpreting Provider: Jaylen Roach MD Head CT 05/10/19 02:09 IMPRESSION: Stable CT brain with no acute intracranial abnormality. D/ / Jaylen Roach MD / Jaylen Roach MD Interpreting Provider: Jaylen Roach MD Chest X-Ray 05/10/19 02:10 IMPRESSION: No acute process. D/ / Jaylen Roach MD / Jaylen Roach MD Interpreting Provider: Jaylen Roach MD - EKG Data EKG #1 EKG attestation: Yes I reviewed and interpreted this EKG. EKG results narrative: EKG shows an electronic atrial ventricular dual pacemaker with totally paced rhythm. No further analysis available due to paced rhythm. Critical Care Time Critical Care Time: Yes Total Critical Care Time: 35 Attestation: Critical care performed: Time is exclusive of separately billable procedures. Time includes: direct patient care, patient reassessment, coordination of patient care, interpretation of data (laboratory data, radiology data, and respiratory data), review of patient's medical records, medical consultation and documentation of patient care. Procedures included in critical care time: Procedures excluded from critical care time: Attestation Statement - Attestation Attestation: I, Flaco Cole MD, personally evaluated this patient and discussed their management with the resident physician. I reviewed the resident's note and agree with the documented findings, medical decision making, and plan of care. I reviewed the residents documentation and agree with the residents assessment and plan of care. I have personally had face to face time with the patient. I personally supervised and was present for the arreola/critical portions of the following procedures completed by the resident: EKG interpretation. 73-year-old female presents to the emergency department by EMS with a complaint of several episodes of vomiting tonight. reports that earlier she was unresponsive. This is not unusual for the patient. He states she has these episodes frequently with decreased responsiveness and shaking and jerking which he calls seizures. He normally placed her on oxygen and a short time she is back to her baseline. He reports that tonight after she vomited she became awake and alert and is more alert and oriented than normal baseline for her. EMS reports that she was awake alert and oriented during transport. Vital signs normal. Patient denies any pain. She does complain that she feels like she is having a little difficulty breathing and feels kind of tight in her throat but denies any chest pain or pressure. On examination patient is a well-developed well-nourished elderly female in no acute distress. She is alert and oriented. No cyanosis or diaphoresis. Breath sounds are clear and equal bilaterally. Heart regular rate and rhythm. Abdomen is soft and nontender with normal bowel sounds. EKG shows an electronic atrial ventricular dual pacemaker with totally paced rhythm. No further analysis available due to paced rhythm. Chest x-ray negative. CT the abdomen and pelvis shows basilar tree-in-bud appearance which could be infectious in nature. The urinary bladder was markedly distended with some gas in the bladder. Labs reviewed. INR 5.4. Creatinine 2.52 which is a significant increase above her baseline. Troponin 0.06 which is baseline for patient. Blood cultures obtained and antibiotics initiated. The hospitalist, Dr. Erickson, was consulted and accepted admission of the patient.
[2019-05-10 02:44] LABS: Basophils % 0.4 %; Eosinophils % 0.5 %; Hematocrit 37.3 % (35.3-44.9); Hemoglobin 12.5 g/dL (11.5-15.4); Immature Granulocytes % 0.9 % (0-4); Lymphocytes # 0.7 K/mcL (0.6-4.6); Lymphocytes % 7.9 %; Mean Corpuscular HGB Conc 33.5 g/dL (31.6-35.5); Mean Corpuscular Hemoglobin 26.9 pg (28.0-33.3); Mean Corpuscular Volume 80.4 fL (83.0-100.0); Mean Platelet Volume 9.8 fL (9.4-12.4); Monocytes # 0.3 K/mcL (0.0-1.3); Monocytes % 3.7 %; Neutrophils # 7.1 K/mcL (1.6-8.9); Platelet Count 168 K/mcL (140-400); Red Blood Count 4.64 M/mcL (3.82-4.97); Red Cell Distribution Width 15.7 % (11.5-14.5); Segmented Neutrophils % 86.6 %; White Blood Count 8.2 K/mcL (4.3-11.1)
[2019-05-10 02:58] LABS: INR 5.4
[2019-05-10 03:11] LABS: Albumin 4.1 g/dL (3.5-5.7); Albumin/Globulin Ratio 1.5 (1.1-2.2); Bilirubin,Total 0.4 mg/dL (0.3-1.0); Calcium 9.8 mg/dL (8.6-10.3); Globulin 2.7 g/dL (2.4-3.5); Potassium 4.9 mEq/L (3.5-5.1); Total Protein 6.8 g/dL (6.4-8.9); Troponin I 0.06 ng/mL (< 0.04)
[2019-05-10] MEDS ORDERED: 0.9 % Sodium Chloride 1,000 ML IVC ONE (03:23)
[2019-05-10 05:10] LABS: Bilirubin,Urine Negative (Negative); Blood,Urine Negative (Negative); Clarity,Urine Clear (Clear); Color,Urine Yellow (Yellow); Glucose,Urine (UA) Normal (Normal); Ketones,Urine Negative (Negative); Leukocyte Esterase,Urine Negative (Negative); Nitrite,Urine Negative (Negative); Protein,Urine 30 mg/dL (Neg-Trace); Specific Gravity,Urine 1.016 (1.010-1.025); Urobilinogen,Urine Normal (Normal)
[2019-05-10 05:12] LABS: Squamous Epithelial Cell,Urine Many per lpf (None-Few)
[2019-05-10 05:21] LABS: Hyaline Casts,Urine Few per lpf (None-Few)
[2019-05-10 05:22] LABS: Bacteria,Urine Many per hpf (None-Few)
[2019-05-10 05:27] LABS: Sodium, Urine 58.5 mEq/L
[2019-05-10] MEDS ORDERED: Ampicillin/Sulbactam 1,500 MG in 0.9 % Sodium Chloride Mini Bag 100 ML IVPB ONE (05:42)
[2019-05-10] MEDS ORDERED: Aminoglycoside Consult 1 EACH MC ONE (05:50)
[2019-05-10] MEDS ORDERED: Acetaminophen 325 MG TABLET PO PRN (07:32)
[2019-05-10] MEDS ORDERED: D5% in Water 1,000 ML IVC PRN (07:36)
[2019-05-10] MEDS ORDERED: *HR* Dextrose 50 % in Water (Syg) 50 ML SYRINGE IVP PRN (07:36)
[2019-05-10] MEDS ORDERED: Dextrose Gel 15 GM/37.5 ML TUBE PO PRN ×2 (07:36)
[2019-05-10] MEDS ORDERED: Mag Hydrox/Al Hydrox/Simeth 30 ML UDC PO PRN (07:38)
[2019-05-10] MEDS ORDERED: Ondansetron 4 MG/2 ML VIAL IVP PRN (07:38)
[2019-05-10] MEDS ORDERED: *HR* Promethazine 25 MG/ML VIAL IVP PRN (07:38)
[2019-05-10] MEDS ORDERED: Naloxone 0.4 MG/ML INJ IVP PRN (07:38)
--- NOTE | 2019-05-10 07:57 | Internal Med History&Physical ---
Date of Encounter: 05/10/19 Time of Encounter: 07:49 Internal Medicine - H&P: HPI Admitted From: Home Plans for Post Hospital Care: Home History of present illness: Ms. Fischer is a 73 year old female with past medical history significant for CA D, chronic atrial fibrillation, chronic kidney disease, diastolic congestive heart failure, diabetes mellitus, subdural hematoma secondary to fall, and tremor who presented with decreased level of consciousness and fall at home. Patient recently was discharged from [facility]. She reported she just moved into new house, felt sick with vomiting. She uses a walker at home. Yesterday, she feel weak and fell to the floor, hit her head. was at home. EMS was called and the patient was brought to the ED. She had a history of subdural hematoma secondary to in the past. She is currently on Coumadin. During the fall, patient denies loss of consciousness, she denies tongue biting, incontinence in stool or bladder. She reported nasal congestion, cough with white mucus, and projectile vomiting recently. She reported absence of abdominal pain, hematemesis, or bloody stool. In the ED, her INR was above 5, CT of the head was negative for acute bleeding. CT of abdomen/pelvis was also performed which showed a distended bladder and tree-in-bud changes on both lower lung [place] suspicious for infection versus aspiration. Patient received 1 dose of Unasyn and a little saline. She was admitted for further evaluation. CODE STATUS: full code. Past Med Surg Social Fam HX - Past Medical History Medical history: arthritis, atrial fibrillation, cancer, CHF, coronary artery disease, CVA, diabetes, GERD, hypertension, myocardial infarction, renal disease, other Additional medical history: portal vein thrombosis - factor V mutation. breast cancer. stage III renal failure. INEZ. sick sinus surgery Psychiatric history: depression, other - Past Surgical History Surgical History: breast surgery Additional surgical history: portal vein thrombosis,tummy tuck. back surgery. lap band sx. right breast lumpectomy. lymph node removal. 2 cardiac stents - Social History Smoking Status: Never smoker Smokeless Tobacco Status: No Alcohol use: rarely Drug use: none - Family History Father Adopted: No Family Member Ethnicity: Non- Living Status: Hx Family Cardiac Disorders: Yes Hx Family Respiratory Disorders: No Hx Family Cancer: No Hx Family GI Disorders: No Hx Family Endocrine Disorder: Yes Hx Family Neuromuscular Disorders: No Hx Family Neurologic Disorders: Yes Hx Family HEENT Disorders: No Hx Family Autoimmune Disorders: Yes Mother Family Member Ethnicity: Non- Living Status: Hx Family Cardiac Disorders: Yes Hx Family Respiratory Disorders: No Hx Family Cancer: Yes Hx Family GI Disorders: No Hx Family Endocrine Disorder: Yes Hx Family Neuromuscular Disorders: No Hx Family Neurologic Disorders: No Hx Family HEENT Disorders: No Hx Family Autoimmune Disorders: Yes (RA) Sister Adopted: No Living Status: Still Living Hx Family Cardiac Disorders: Yes Hx Family Respiratory Disorders: No Hx Family Cancer: No Hx Family GI Disorders: No Hx Family Endocrine Disorder: Yes Hx Family Neuromuscular Disorders: No Hx Family Neurologic Disorders: Yes Hx Family HEENT Disorders: No Hx Family Autoimmune Disorders: No Brother Adopted: No Living Status: Still Living Hx Family Cardiac Disorders: Yes Hx Family Respiratory Disorders: No Hx Family Cancer: No Hx Family GI Disorders: No Hx Family Endocrine Disorder: No Hx Family Neuromuscular Disorders: No Hx Family Neurologic Disorders: No Hx Family HEENT Disorders: No Hx Family Autoimmune Disorders: No Internal Medicine - H&P: Meds Escitalopram [Lexapro] 20 mg PO DAILY 05/16/15 [History] Rosuvastatin [Crestor] 40 mg PO DAILY 05/16/15 [History] traZODone [TraZODone] 50 mg PO HS PRN 03/19/17 [History] Ranolazine [Ranexa] 1,000 mg PO BID 01/03/18 [History] Anastrozole [Arimidex] 1 mg PO DAILY 05/14/18 [History] Isosorbide MONOnitrate (24 HR) [Imdur] 30 mg PO DAILY 05/14/18 [History] Spironolactone [Aldactone] 25 mg PO DAILY 01/11/19 [History] Warfarin [Coumadin] 2 mg PO SUMOWETHFR 01/11/19 [History] Amiodarone HCl 200 mg PO DAILY 01/12/19 [History] Insulin LISPRO [Humalog Kwikpen U-100] 8 unit SQ TIDWM 02/13/19 [History] Lactulose 10 gm PO Q72H PRN 02/13/19 [History] Semaglutide [Ozempic] 0.25 mg SQ FR 04/08/19 [History] Clopidogrel [Plavix] 75 mg PO QAM 04/10/19 [History] Potassium Chloride [Klor-Con 10] 20 meq PO BID 04/10/19 [History] Warfarin [Coumadin] 1 mg PO TUSA 04/16/19 [History] levETIRAcetam [Keppra] 500 mg PO Q12HR #120 tablet 04/18/19 [Rx] Furosemide [Lasix] 20 mg PO BID 04/23/19 [History] Cholecalciferol (Vitamin D3) [Vitamin D3] 1,000 unit PO DAILY 04/29/19 [History] Acetaminophen [Tylenol] 650 mg PO Q6HR PRN tablet 05/06/19 [Rx] Insulin DETEMIR [Levemir] 20 unit SQ HS [id number] 05/06/19 [Rx] Polyethylene Glycol 3350 [MiraLAX] 17 gm PO DAILY powd.pack 05/06/19 [Rx] Sulfamethoxazole/Trimeth DS [Bactrim Ds] 0.5 each PO BID 7 Days #14 tablet 05/06/19 [Rx] Allergy/AdvReac Type Severity Reaction Status Date / Time phenylbutazone Allergy Rash Verified 05/14/18 14:15 [From Butazolidin] amitriptyline [From Elavil] AdvReac Headache Verified 05/14/18 14:15 codeine AdvReac Headache Verified 05/14/18 14:15 desipramine AdvReac Headache Verified 05/14/18 14:15 lisinopril AdvReac Cough Verified 05/14/18 14:15 meperidine [From Demerol] AdvReac Headache Verified 05/14/18 14:15 nalbuphine AdvReac Headache Verified 05/14/18 14:15 Nortriptyline AdvReac Headache Verified 05/14/18 14:15 tiagabine AdvReac Headache Verified 05/14/18 14:15 All Systems PM: A 10-system review of systems was performed and is negative for pertinent findings except as documented above in the HPI. Review of systems: REVIEW OF SYSTEMS: CONSTITUTIONAL: No weight loss, fever, chills, weakness or fatigue. HEENT: see HPI. SKIN: No rash or itching. CARDIOVASCULAR: No chest pain, chest pressure or chest discomfort. No palpitations or edema. RESPIRATORY: No shortness of breath, cough or sputum. GASTROINTESTINAL: see HPI. GENITOURINARY: No dysuria, urgency, or frequency. NEUROLOGICAL: No headache, dizziness, syncope, paralysis, ataxia, numbness or tingling in the extremities. No change in bowel or bladder control. MUSCULOSKELETAL: No muscle, back pain, joint pain or stiffness. HEMATOLOGIC: No anemia, bleeding or bruising. LYMPHATICS: No enlarged nodes. No history of splenectomy. PSYCHIATRIC: No history of depression or anxiety. ENDOCRINOLOGIC: No reports of sweating, cold or heat intolerance. No polyuria or polydipsia. - Constitutional Vitals: Temp Pulse Resp BP Pulse Ox 98.3 F 60 16 108/55 100 05/10/19 06:55 05/10/19 06:55 05/10/19 06:55 05/10/19 06:55 05/10/19 06:55 General appearance: Present: A&O X 3 Exam: PHYSICAL EXAMINATION: GENERAL APPEARANCE: The patient is alert, oriented and in no acute distress. HEENT: Head is normocephalic. The sinuses are nontender. Pupils are equal and reactive. The nares are patent. Oropharynx clear without lesions. NECK: Supple without lymphadenopathy. HEART: Regular rate and rhythm. LUNGS: No crackles or wheezes are heard. ABDOMEN: Soft, nontender, nondistended with good bowel sounds heard. Inguinal area is normal. EXTREMITIES: Without cyanosis, clubbing or edema. NEUROLOGICAL: Gross nonfocal. SKIN: Warm and dry without any rash. Internal Med - H&P Results - Labs CBC & Chem 7: 05/10/19 02:36 05/10/19 02:36 Labs: Short CBC 05/10/19 Range/Units 02:36 WBC 8.2 (4.3-11.1) K/mcL Hgb 12.5 (11.5-15.4) g/dL Hct 37.3 (35.3-44.9) % Plt Count 168 (140-400) K/mcL Neutrophils # 7.1 (1.6-8.9) K/mcL BMP 05/10/19 02:36 Sodium 133 L Potassium 4.9 Chloride 100 Carbon Dioxide 18 L BUN 39 H Creatinine 2.52 H Glucose 262 H Calcium 9.8 Cardiac Enzymes 05/10/19 Range/Units 02:36 Troponin I 0.06 H* (< 0.04) ng/mL Liver Function 05/10/19 Range/Units 02:36 Total Bilirubin 0.4 (0.3-1.0) mg/dL AST 24 (13-39) Units/L ALT 35 (7-52) Units/L Alkaline Phosphatase 46 (34-104) Units/L Albumin 4.1 (3.5-5.7) g/dL Urine 05/10/19 Range/Units 04:58 Urine Color Yellow (Yellow) Urine Clarity Clear (Clear) Urine pH 6.0 (5.0-8.0) pH Units Ur Specific [place] 1.016 (1.010-1.025) Urine Protein 30 H (Neg-Trace) mg/dL Urine Glucose (UA) Normal (Normal) mg/dL - Impressions ITS Impressions Abdomen/Pelvis CT 05/10/19 02:09 IMPRESSION: Marked urinary bladder distention with nondependent gas, the latter of which could reflect recent instrumentation/catheterization versus cystitis. No obstructive uropathy. Regarding the kidneys, the indeterminate cysts are not substantially changed in size. Consideration could be given to follow-up renal protocol MRI or CT. Patchy right basilar tree-in-bud opacities, suspicious for infectious or inflammatory bronchiolitis. Aspiration sequela is a consideration given basilar pendant distribution. D/ / Erwin Hernandez / Erwin Hernandez Interpreting Provider: Erwin Hernandez Cervical Spine CT 05/10/19 02:09 IMPRESSION: Stable CT cervical spine with no acute abnormality and advanced multilevel degenerative changes most pronounced at C5-C6 and C6-C7 as described. D/ / Jaylen Roach MD / Jaylen Roach MD Interpreting Provider: Jaylen Roach MD Head CT 05/10/19 02:09 IMPRESSION: Stable CT brain with no acute intracranial abnormality. D/ / Jaylen Roach MD / Jaylen Roach MD Interpreting Provider: Jaylen Roach MD Chest X-Ray 05/10/19 02:10 IMPRESSION: No acute process. D/ / Jaylen Roach MD / Jaylen Roach MD Interpreting Provider: Jaylen Roach MD - Assessment and Plan (1) Altered mental status Current Visit: Yes Status: Acute Assessment and plan: 74-year-old female recently was discharged from rehabilitation center presented with acute mental status change and a mechanical fall. Initial workup in the ED showed normal vital signs, afebrile. Labs showed slightly elevated troponin, elevated BUN and creatinine. UA showed increased in number of WBC but negative nitrates. CT of head was negative for acute bleeding. CT abdomen/pelvis showed distended bladder and tree-in-bud changes on both lower lung [place] suspicious for infection versus aspiration. She sleeved Unasyn at the ED. Blood culture and urine culture obtained. We will will continue empirical IV antibiotics with Zosyn and vancomycin for possible hospital associated pneumonia, aspiration, UTI, and possible sinus infection. Qualifiers: Altered mental status type: unspecified Qualified Code(s): R41.82 - Altered mental status, unspecified (2) Diabetes Current Visit: No Status: Chronic Assessment and plan: Continue present insulin at home dose, decrease of bolus insulin dose to half, started patient insulin sliding scale. We will adjust insulin dose based on the Accu-Chek results. 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 (4) Elevated troponin Current Visit: No Status: Chronic Assessment and plan: Patient had chronic troponin elevation due to chronic kidney disease and heart failure. Current level is very close to baseline. We will continue cycling troponin, telemetry monitoring, EKG as needed. She denies chest pain. (5) HTN (hypertension) Current Visit: No Status: Chronic Assessment and plan: BP initially was low, suspicious for dehydration, patient received a saline bolus at the ED. Current blood pressure improved. We will continue home BP meds and monitoring BP year. Qualifiers: Hypertension type: essential hypertension Qualified Code(s): I10 - Essential (primary) hypertension (6) Congestive heart failure Current Visit: No Status: Chronic Qualifiers: Heart failure type: other Qualified Code(s): I50.9 - Heart failure, unspecified (7) CKD (chronic kidney disease), stage III Current Visit: No Status: Chronic Assessment and plan: Creatinine at the baseline, continue monitoring. (8) Combined systolic and diastolic congestive heart failure Current Visit: No Status: Chronic Assessment and plan: Euvolemic on the physical exam, continue home medications including Lasix and Aldactone. Qualifiers: Qualified Code(s): I50.43 - Acute on chronic combined systolic (congestive) and diastolic (congestive) heart failure (9) CAD (coronary artery disease) Current Visit: No Status: Chronic Assessment and plan: No chest pain, continue home medications including aspirin. Qualifiers: Coronary Disease-Associated Artery/Lesion type: [place] artery [place] vs. transplanted heart: [place] heart Associated angina: without angina Qualified Code(s): I25.10 - Atherosclerotic heart disease of [place] coronary artery without angina pectoris (10) Chronic atrial fibrillation Current Visit: No Status: Chronic Assessment and plan: Rate controlled, INR supratherapeutic currently, pharmacy to dose. (11) Elevated INR Current Visit: Yes Status: Acute Assessment and plan: Same as above. No active bleeding, no need for reversal currently. (12) Fall Current Visit: No Status: Acute Assessment and plan: PT/OT consult. Qualifiers: Encounter type: initial encounter Qualified Code(s): W19.XXXA - Unspecified fall, initial encounter - Time Spent With Patient Total time spent is greater than 50% in coordination of care (as documented) at patient's floor/unit and/or counseling patient: Greater than 35 minutes
[2019-05-10] MEDS: levETIRAcetam 250 MG TABLET PO SCH ×2 (09:58→21:39)
[2019-05-10] MEDS: *HR* Amiodarone 200 MG TABLET PO SCH (09:59)
[2019-05-10] MEDS: Isosorbide MONOnitrate (24 HR) 60 MG TAB.ER.24H PO SCH (09:59)
[2019-05-10] MEDS: Spironolactone 25 MG TABLET PO SCH (09:59)
[2019-05-10] MEDS: Furosemide 20 MG TABLET PO SCH ×2 (09:59→21:39)
[2019-05-10] MEDS: Cholecalciferol (D-3) 1,000 UNIT (25MCG) TABLET PO SCH (09:59)
[2019-05-10] MEDS: Ranolazine 500 MG TAB.ER.12H PO SCH ×2 (09:59→21:39)
[2019-05-10] MEDS: Anastrozole 1 MG TABLET PO SCH (10:00)
[2019-05-10] MEDS: Piperacillin/Tazobactam 3.375 GM in 0.9 % Sodium Chloride Mini Bag 100 ML IVPB SCH (11:48)
[2019-05-10] MEDS: Insulin LISPRO 300 UNITS/3 ML VIAL SQ SCH ×5 (11:57→21:30)
[2019-05-10] MEDS ORDERED: Warfarin perPT PO PRN (18:00)
[2019-05-10] MEDS: Insulin DETEMIR 100 UNIT/ML X5UNITS SQ SCH (21:39)
[2019-05-10] MEDS: traZODone 50 MG TABLET PO PRN (21:41)
--- NOTE | 2019-05-10 23:36 | Electrocardiograph Report ---
[employer] Test Date: 2019-05-10 Pat Name: Miriam Fischer Department: EXAM2 Room: 3B65 Gender: F [employer]: : 1945 Requested By: Arnold Storm Order Number: [id number] Reading MD: Megan Ward Measurements Intervals [place] Rate: 60 P: 266 MD: 308 QRS: -69 QRSD: 167 T: 106 QT: 509 QTc: 509 Interpretive Statements Atrial-ventricular dual-paced rhythm No further analysis attempted due to paced rhythm Electronically Signed On 05-10-2019 23:34:25 EDT by Megan Ward
[2019-05-11] MEDS: Piperacillin/Tazobactam 3.375 GM in 0.9 % Sodium Chloride Mini Bag 100 ML IVPB SCH ×2 (00:52→12:48)
[2019-05-11 04:30] LABS: Hematocrit 34.7 % (35.3-44.9); Hemoglobin 11.2 g/dL (11.5-15.4); Mean Corpuscular HGB Conc 32.3 g/dL (31.6-35.5); Mean Corpuscular Hemoglobin 27.4 pg (28.0-33.3); Mean Corpuscular Volume 84.8 fL (83.0-100.0); Mean Platelet Volume 9.8 fL (9.4-12.4); Platelet Count 150 K/mcL (140-400); Red Blood Count 4.09 M/mcL (3.82-4.97); Red Cell Distribution Width 16.2 % (11.5-14.5); White Blood Count 6.3 K/mcL (4.3-11.1)
[2019-05-11 04:44] LABS: INR 5.6; Prothrombin Time 63.7 Seconds (9.4-12.1)
[2019-05-11 04:50] LABS: Albumin 3.6 g/dL (3.5-5.7); Albumin/Globulin Ratio 1.5 (1.1-2.2); Bilirubin,Total 0.4 mg/dL (0.3-1.0); Calcium 9.1 mg/dL (8.6-10.3); Globulin 2.4 g/dL (2.4-3.5); Magnesium 2.1 mg/dL (1.6-2.6); Phosphorous 2.4 mg/dL (2.7-4.5)
[2019-05-11] MEDS: Insulin LISPRO 300 UNITS/3 ML VIAL SQ SCH ×7 (08:40→22:15)
--- NOTE | 2019-05-11 09:26 | Internal Med Progress Note ---
Hospitalist Progress Note - Encounter Date of Encounter: 05/11/19 Time of Encounter: 09:26 - Subjective Interval History: Patient was seen and examined at bedside currently sitting up eating breakfast denies any chest pain or shortness of breath. She does admit that she has been experiencing frequent falls discussed patient that she is high risk for bleeding due to falls. Also discussed possible rehabilitation she states she just completed not long ago. She does agree that she is unsteady and would benefit from further rehabilitation - Exam Vitals: Temp Pulse Resp BP Pulse Ox 97.4 F L 57 14 116/72 96 05/11/19 08:10 05/11/19 08:10 05/11/19 08:10 05/11/19 08:10 05/11/19 08:10 Exam: PHYSICAL EXAMINATION: GENERAL APPEARANCE: The patient is alert, oriented and in no acute distress. HEENT: Head is normocephalic. The sinuses are nontender. Pupils are equal and reactive. The nares are patent. Oropharynx clear without lesions. NECK: Supple without lymphadenopathy. HEART: Regular rate and rhythm. LUNGS: No crackles or wheezes are heard. ABDOMEN: Soft, nontender, nondistended with good bowel sounds heard. Inguinal area is normal. EXTREMITIES: Without cyanosis, clubbing or edema. NEUROLOGICAL: Gross nonfocal. SKIN: Warm and dry without any rash. - Assessment and Plan (1) Fall Current Visit: No Status: Acute Assessment and Plan: PT/OT consult. (2) Altered mental status Current Visit: Yes Status: Acute Assessment and Plan: 74-year-old female recently was discharged from rehabilitation center presented with acute mental status change and a mechanical fall. Initial workup in the ED showed normal vital signs, afebrile. Labs showed slightly elevated troponin, elevated BUN and creatinine. UA showed increased in number of WBC but negative nitrates. CT of head was negative for acute bleeding. CT abdomen/pelvis showed distended bladder and tree-in-bud changes on both lower lung [place] suspicious for infection versus aspiration. She sleeved Unasyn at the ED. Blood culture and urine culture obtained. We will will continue empirical IV antibiotics with Zosyn and vancomycin for possible hospital associated pneumonia, aspiration, UTI, and possible sinus infection. 05/11 Currently she is alert and appropriate following simple commands Continue with IV antibiotic Zosyn for possible pneumonia aspiration UTI and possible sinus infection. MRSA swab was negative so we will discontinue the vancomycin Blood cultures are pending at this time as well as urine cultures (3) Diabetes Current Visit: No Status: Chronic Assessment and Plan: Continue present insulin at home dose, decrease of bolus insulin dose to half, started patient insulin sliding scale. We will adjust insulin dose based on the Accu-Chek results. (4) DVT prophylaxis Current Visit: No Status: Acute Assessment and Plan: Patient on Coumadin, INR supratherapeutic. (5) Elevated troponin Current Visit: No Status: Chronic Assessment and Plan: Patient had chronic troponin elevation due to chronic kidney disease and heart failure. Current level is very close to baseline. We will continue cycling troponin, telemetry monitoring, EKG as needed. She denies chest pain. 05/11 Appear to be chronically elevated currently close to baseline no chest pain voiced EKG with no ischemic changes (6) HTN (hypertension) Current Visit: No Status: Chronic Assessment and Plan: BP initially was low, suspicious for dehydration, patient received a saline bolus at the ED. Current blood pressure improved. We will continue home BP meds. (7) Congestive heart failure Current Visit: No Status: Chronic Assessment and Plan: Cardiac echo 04/02/2019 Impressions: Limited Echo LVEF 50-55%. Atypical septal motion consistent with paced rhythm. Asymmetric septal hypertrophy. Normal right ventricular structure and function. Combined systolic and diastolic congestive heart failure continue -patient has elevated creatinine at this time patient does not appear to be fluid overloaded we will give a gentle IV hydration and hold Lasix and Aldactone at this time (8) CKD (chronic kidney disease), stage III Current Visit: No Status: Chronic Assessment and Plan: Creatinine at the baseline, continue monitoring. She has a slight increase and creatinine we will hold diuretics and give gentle IV fluids continue to monitor closely Avoid nephrotoxins will Will discontinue vancomycin for now renal dose all antibiotics (9) Combined systolic and diastolic congestive heart failure Current Visit: No Status: Chronic Assessment and Plan: Euvolemic on the physical exam, continue home medications -we will hold diuretics for now (10) CAD (coronary artery disease) Current Visit: No Status: Chronic Assessment and Plan: No chest pain, continue home medications including aspirin. (11) Chronic atrial fibrillation Current Visit: No Status: Chronic Assessment and Plan: Rate controlled, INR supratherapeutic currently, pharmacy to dose. (12) Elevated INR Current Visit: Yes Status: Acute Assessment and Plan: Same as above. No active bleeding, no need for reversal currently. - Time Spent with Patient Total time spent is greater than 50% in coordination of care (as documented) at patient's floor/unit and/or counseling patient: Internal Medicine: Result - Labs CBC & Chem 7: 05/11/19 03:35 05/11/19 03:35 Labs: Short CBC 05/11/19 Range/Units 03:35 WBC 6.3 (4.3-11.1) K/mcL Hgb 11.2 L (11.5-15.4) g/dL Hct 34.7 L (35.3-44.9) % Plt Count 150 (140-400) K/mcL BMP 05/11/19 03:35 Sodium 135 L Potassium 4.0 Chloride 107 Carbon Dioxide 20 L BUN 29 H Creatinine 2.30 H Glucose 83 Calcium 9.1 Cardiac Enzymes 05/10/19 05/10/19 Range/Units 14:33 21:08 Troponin I 0.06 H* 0.07 H* (< 0.04) ng/mL Liver Function 05/11/19 Range/Units 03:35 Total Bilirubin 0.4 (0.3-1.0) mg/dL AST 27 (13-39) Units/L ALT 36 (7-52) Units/L Alkaline Phosphatase 41 (34-104) Units/L Albumin 3.6 (3.5-5.7) g/dL - ABG Interpretation ABG results: PT/INR, D-dimer PT 63.7 Seconds (9.4-12.1) H* 05/11/19 03:35 Consult Discharge Plan - Plan Referrals: NONE,PCP [Primary Care Provider] - _ (1) Fall Qualifiers: Encounter type: initial encounter Qualified Code(s): W19.XXXA - Unspecified fall, initial encounter (2) Altered mental status Qualifiers: Altered mental status type: unspecified Qualified Code(s): R41.82 - Altered mental status, unspecified (3) Diabetes Qualifiers: Diabetes mellitus type: type 2 Diabetes mellitus alf insulin use: with alf use Diabetes mellitus complication status: with neurologic complications Diabetes mellitus complication detail: with polyneuropathy Qualified Code(s): E11.42 - Type 2 diabetes mellitus with diabetic polyneuropathy; 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 transplanted heart: [place] heart Associated angina: without angina Qualified Code(s): I25.10 - Atherosclerotic heart disease of [place] coronary artery without angina pectoris
[2019-05-11] MEDS: *HR* Amiodarone 200 MG TABLET PO SCH (10:11)
[2019-05-11] MEDS: Ranolazine 500 MG TAB.ER.12H PO SCH ×2 (10:11→22:16)
[2019-05-11] MEDS: Isosorbide MONOnitrate (24 HR) 60 MG TAB.ER.24H PO SCH (10:11)
[2019-05-11] MEDS: Cholecalciferol (D-3) 1,000 UNIT (25MCG) TABLET PO SCH (10:11)
[2019-05-11] MEDS: levETIRAcetam 250 MG TABLET PO SCH ×2 (10:11→22:15)
[2019-05-11] MEDS: Furosemide 20 MG TABLET PO SCH (10:11)
[2019-05-11] MEDS: Spironolactone 25 MG TABLET PO SCH (10:11)
[2019-05-11] MEDS: Anastrozole 1 MG TABLET PO SCH (10:25)
[2019-05-11] MEDS ORDERED: 0.9 % Sodium Chloride 500 ML IVC SCH (17:30)
[2019-05-11] MEDS: Insulin DETEMIR 100 UNIT/ML X5UNITS SQ SCH (22:16)
[2019-05-11] MEDS: traZODone 50 MG TABLET PO PRN (22:16)
[2019-05-12] MEDS: Piperacillin/Tazobactam 3.375 GM in 0.9 % Sodium Chloride Mini Bag 100 ML IVPB SCH ×3 (00:33→23:49)
[2019-05-12 04:55] LABS: INR 3.2
[2019-05-12 05:03] LABS: Potassium 3.9 mEq/L (3.5-5.1)
[2019-05-12] MEDS: Insulin LISPRO 300 UNITS/3 ML VIAL SQ SCH ×7 (07:45→21:47)
[2019-05-12] MEDS: Isosorbide MONOnitrate (24 HR) 60 MG TAB.ER.24H PO SCH (09:38)
[2019-05-12] MEDS: Ranolazine 500 MG TAB.ER.12H PO SCH ×2 (09:38→21:47)
[2019-05-12] MEDS: levETIRAcetam 250 MG TABLET PO SCH ×2 (09:38→21:47)
[2019-05-12] MEDS: Anastrozole 1 MG TABLET PO SCH (09:38)
[2019-05-12] MEDS: Cholecalciferol (D-3) 1,000 UNIT (25MCG) TABLET PO SCH (09:38)
[2019-05-12] MEDS: *HR* Amiodarone 200 MG TABLET PO SCH (09:38)
--- NOTE | 2019-05-12 10:20 | Internal Med Progress Note ---
Hospitalist Progress Note - Encounter Date of Encounter: 05/12/19 Time of Encounter: 10:20 - Subjective Interval History: Patient was seen and examined at bedside she currently states she does feel somewhat better however she continues to feel unsteady on her feet currently awaiting placement to ECF for rehabilitation - Exam Vitals: Temp Pulse Resp BP Pulse Ox 98.0 F 60 16 126/63 97 05/12/19 07:30 05/12/19 07:30 05/12/19 07:30 05/12/19 07:30 05/12/19 07:30 Exam: PHYSICAL EXAMINATION: GENERAL APPEARANCE: The patient is alert, oriented and in no acute distress. HEENT: Head is normocephalic. The sinuses are nontender. Pupils are equal and reactive. The nares are patent. Oropharynx clear without lesions. NECK: Supple without lymphadenopathy. HEART: Regular rate and rhythm. LUNGS: No crackles or wheezes are heard. ABDOMEN: Soft, nontender, nondistended with good bowel sounds heard. Inguinal area is normal. EXTREMITIES: Without cyanosis, clubbing or edema. NEUROLOGICAL: Gross nonfocal. SKIN: Warm and dry without any rash. - Assessment and Plan (1) Fall Current Visit: No Status: Acute Assessment and Plan: PT/OT consult.-Recommending ECF placement Fall precautions (2) Altered mental status Current Visit: Yes Status: Acute Assessment and Plan: 74-year-old female recently was discharged from rehabilitation center presented with acute mental status change and a mechanical fall. Initial workup in the ED showed normal vital signs, afebrile. Labs showed slightly elevated troponin, elevated BUN and creatinine. UA showed increased in number of WBC but negative nitrates. CT of head was negative for acute bleeding. CT abdomen/pelvis showed distended bladder and tree-in-bud changes on both lower lung [place] suspicious for infection versus aspiration. She sleeved Unasyn at the ED. Blood culture and urine culture obtained. We will will continue empirical IV antibiotics with Zosyn and vancomycin for possible hospital associated pneumonia, aspiration, UTI, and possible sinus infection. 05/11 Currently she is alert and appropriate following simple commands Continue with IV antibiotic Zosyn for possible pneumonia aspiration UTI and possible sinus infection. MRSA swab was negative so we will discontinue the vancomycin Blood cultures are pending at this time as well as urine cultures 05/12 Currently she is alert and appropriate following simple commands continue with Zosyn Blood and urine cultures are pending (3) Diabetes Current Visit: No Status: Chronic Assessment and Plan: Continue present insulin at home dose, decrease of bolus insulin dose to half, started patient insulin sliding scale. We will adjust insulin dose based on the Accu-Chek results. (4) DVT prophylaxis Current Visit: No Status: Acute Assessment and Plan: Patient on Coumadin, (5) Elevated troponin Current Visit: No Status: Chronic Assessment and Plan: Patient had chronic troponin elevation due to chronic kidney disease and heart failure. Current level is very close to baseline. We will continue cycling troponin, telemetry monitoring, EKG as needed. She denies chest pain. 05/11 Appear to be chronically elevated currently close to baseline no chest pain voiced EKG with no ischemic changes 05/12 This appears to be chronic (6) HTN (hypertension) Current Visit: No Status: Chronic Assessment and Plan: BP initially was low, suspicious for dehydration, patient received a saline bolus at the ED. Current blood pressure improved. We will continue home BP meds. (7) Congestive heart failure Current Visit: No Status: Chronic Assessment and Plan: Cardiac echo 04/02/2019 Impressions: Limited Echo LVEF 50-55%. Atypical septal motion consistent with paced rhythm. Asymmetric septal hypertrophy. Normal right ventricular structure and function. Combined systolic and diastolic congestive heart failure continue Lasix and Aldactone tomorrow (8) CKD (chronic kidney disease), stage III Current Visit: No Status: Chronic Assessment and Plan: Creatinine at the baseline, continue monitoring. She has a slight increase and creatinine we will hold diuretics and give gentle IV fluids continue to monitor closely Avoid nephrotoxins will Will discontinue vancomycin for now renal dose all antibiotics 05/12 Appears to be improving we will hold diuretics for now (9) Combined systolic and diastolic congestive heart failure Current Visit: No Status: Chronic Assessment and Plan: Euvolemic on the physical exam, continue home medications -we will hold diuretics for now (10) CAD (coronary artery disease) Current Visit: No Status: Chronic Assessment and Plan: No chest pain, continue home medications including aspirin. (11) Chronic atrial fibrillation Current Visit: No Status: Chronic Assessment and Plan: Rate controlled, INR supratherapeutic currently, pharmacy to dose. (12) Elevated INR Current Visit: Yes Status: Acute Assessment and Plan: Same as above. No active bleeding, no need for reversal currently. 05/12 improved cont per pharmacy - Time Spent with Patient Total time spent is greater than 50% in coordination of care (as documented) at patient's floor/unit and/or counseling patient: Internal Medicine: Result - Labs CBC & Chem 7: 05/11/19 03:35 05/12/19 03:34 Labs: BMP 05/12/19 03:34 Sodium 136 Potassium 3.9 Chloride 107 Carbon Dioxide 21 L BUN 26 H Creatinine 2.00 H Glucose 90 Calcium 9.0 - ABG Interpretation ABG results: PT/INR, D-dimer PT 36.0 Seconds (9.4-12.1) H 05/12/19 03:34 Consult Discharge Plan - Plan Referrals: NONE,PCP [Primary Care Provider] - (1) Fall Qualifiers: Encounter type: initial encounter Qualified Code(s): W19.XXXA - Unspecified fall, initial encounter (2) Altered mental status Qualifiers: Altered mental status type: unspecified Qualified Code(s): R41.82 - Altered mental status, unspecified (3) Diabetes Qualifiers: Diabetes mellitus type: type 2 Diabetes mellitus intermediate insulin use: with intermediate use Diabetes mellitus complication status: with neurologic complications Diabetes mellitus complication detail: with polyneuropathy Qualified Code(s): E11.42 - Type 2 diabetes mellitus with diabetic polyneuropathy; Z79.4 - halfway (current) use of insulin (6) HTN (hypertension) Qualifiers: Hypertension type: essential hypertension Qualified Code(s): I10 - Essential (primary) hypertension (7) Congestive heart failure Qualifiers: Heart failure type: other Qualified Code(s): I50.9 - Heart failure, unspecified (10) CAD (coronary artery disease) Qualifiers: Coronary Disease-Associated Artery/Lesion type: [place] artery [place] vs. transplanted heart: [place] heart Associated angina: without angina Qualified Code(s): I25.10 - Atherosclerotic heart disease of [place] coronary artery without angina pectoris
[2019-05-12] MEDS ORDERED: *HR* Warfarin 1 MG TABLET PO ONE (18:00)
[2019-05-12] MEDS: traZODone 50 MG TABLET PO PRN (21:47)
[2019-05-12] MEDS: Insulin DETEMIR 100 UNIT/ML X5UNITS SQ SCH (21:48)
[2019-05-13 06:09] LABS: Basophils % 0.7 %; Eosinophils # 0.2 K/mcL (0.0-0.6); Eosinophils % 4.6 %; Hematocrit 33.6 % (35.3-44.9); Hemoglobin 10.7 g/dL (11.5-15.4); Immature Granulocytes % 0.9 % (0-4); Lymphocytes # 0.8 K/mcL (0.6-4.6); Lymphocytes % 18.9 %; Mean Corpuscular HGB Conc 31.8 g/dL (31.6-35.5); Mean Corpuscular Hemoglobin 26.6 pg (28.0-33.3); Mean Corpuscular Volume 83.6 fL (83.0-100.0); Mean Platelet Volume 10.2 fL (9.4-12.4); Monocytes # 0.4 K/mcL (0.0-1.3); Monocytes % 8.3 %; Neutrophils # 2.9 K/mcL (1.6-8.9); Platelet Count 133 K/mcL (140-400); Red Blood Count 4.02 M/mcL (3.82-4.97); Red Cell Distribution Width 16.6 % (11.5-14.5); Segmented Neutrophils % 66.6 %; White Blood Count 4.4 K/mcL (4.3-11.1)
[2019-05-13 06:14] LABS: INR 1.9
[2019-05-13 06:27] LABS: Calcium 8.7 mg/dL (8.6-10.3); Potassium 4.3 mEq/L (3.5-5.1)
[2019-05-13] MEDS: Insulin LISPRO 300 UNITS/3 ML VIAL SQ SCH ×4 (08:23→12:51)
[2019-05-13] MEDS ORDERED: Spironolactone 25 MG TABLET PO SCH (09:23)
--- NOTE | 2019-05-13 09:51 | Internal Med Progress Note ---
Hospitalist Progress Note - Encounter Date of Encounter: 05/13/19 Time of Encounter: 09:26 - Exam Vitals: Temp Pulse Resp BP Pulse Ox 97.8 F 60 16 136/70 98 05/13/19 06:53 05/13/19 06:53 05/13/19 06:53 05/13/19 06:53 05/13/19 06:53 - Assessment and Plan (1) Fall Current Visit: No Status: Acute (2) Altered mental status Current Visit: Yes Status: Acute (3) Diabetes Current Visit: No Status: Chronic (4) DVT prophylaxis Current Visit: No Status: Acute (5) Elevated troponin Current Visit: No Status: Chronic (6) HTN (hypertension) Current Visit: No Status: Chronic (7) Congestive heart failure Current Visit: No Status: Chronic (8) CKD (chronic kidney disease), stage III Current Visit: No Status: Chronic (9) Combined systolic and diastolic congestive heart failure Current Visit: No Status: Chronic (10) CAD (coronary artery disease) Current Visit: No Status: Chronic (11) Chronic atrial fibrillation Current Visit: No Status: Chronic (12) Elevated INR Current Visit: Yes Status: Acute - Time Spent with Patient Total time spent is greater than 50% in coordination of care (as documented) at patient's floor/unit and/or counseling patient: Internal Medicine: Result - Labs CBC & Chem 7: 05/13/19 05:26 05/13/19 05:26 Labs: Short CBC 05/13/19 Range/Units 05:26 WBC 4.4 (4.3-11.1) K/mcL Hgb 10.7 L (11.5-15.4) g/dL Hct 33.6 L (35.3-44.9) % Plt Count 133 L (140-400) K/mcL Neutrophils # 2.9 (1.6-8.9) K/mcL BMP 05/13/19 05:26 Sodium 136 Potassium 4.3 Chloride 108 H Carbon Dioxide 19 L BUN 23 Creatinine 1.82 H Glucose 150 H Calcium 8.7 - ABG Interpretation ABG results: PT/INR, D-dimer PT 22.0 Seconds (9.4-12.1) H 05/13/19 05:26 Consult Discharge Plan - Plan Referrals: NONE,PCP [Primary Care Provider] - (1) Fall Qualifiers: Encounter type: initial encounter Qualified Code(s): W19.XXXA - Unspecified fall, initial encounter (2) Altered mental status Qualifiers: Altered mental status type: unspecified Qualified Code(s): R41.82 - Altered mental status, unspecified (3) Diabetes Qualifiers: Diabetes mellitus type: type 2 Diabetes mellitus alf insulin use: with alf use Diabetes mellitus complication status: with neurologic complications Diabetes mellitus complication detail: with polyneuropathy Qualified Code(s): E11.42 - Type 2 diabetes mellitus with diabetic polyneuropathy; Z79.4 - watermelon inspector (current) use of insulin (6) HTN (hypertension) Qualifiers: Hypertension type: essential hypertension Qualified Code(s): I10 - Essential (primary) hypertension (7) Congestive heart failure Qualifiers: Heart failure type: other Qualified Code(s): I50.9 - Heart failure, unspecified (10) CAD (coronary artery disease) Qualifiers: Coronary Disease-Associated Artery/Lesion type: [place] artery [place] vs. transplanted heart: [place] heart Associated angina: without angina Qualified Code(s): I25.10 - Atherosclerotic heart disease of [place] coronary artery without angina pectoris
--- NOTE | 2019-05-13 10:04 | Discharge Summary ---
- NOTES TO OUTPATIENT PROVIDER Notes to Outpatient Provider: Follow up with nephrology - FLORES Held diuretics. we will check chem7. Treated for pneumonia - on augmentin Orders not resulted at time of discharge: Pending orders 05/10/19 04:24 Culture,Blood [BC] Stat 05/10/19 05:08 Urinalysis Reflex Cult & Micro [URIN] Stat Date of Encounter: 05/13/19 Time of Encounter: 09:55 - Discharge Diagnosis (1) Fall Priority: Primary Status: Acute Qualifiers: Encounter type: initial encounter Qualified Code(s): W19.XXXA - Unspecified fall, initial encounter (2) Altered mental status Priority: Secondary Status: Acute Qualifiers: Altered mental status type: unspecified Qualified Code(s): R41.82 - Altered mental status, unspecified (3) Diabetes Priority: Secondary Status: Chronic Qualifiers: Diabetes mellitus type: type 2 Diabetes mellitus custodial insulin use: with custodial use Diabetes mellitus complication status: with neurologic complications Diabetes mellitus complication detail: with polyneuropathy Qualified Code(s): E11.42 - Type 2 diabetes mellitus with diabetic polyneuropathy; Z79.4 - manager terminal (current) use of insulin (4) Elevated troponin Priority: Secondary Status: Chronic (5) HTN (hypertension) Priority: Secondary Status: Chronic Qualifiers: Hypertension type: essential hypertension Qualified Code(s): I10 - Essential (primary) hypertension (6) Congestive heart failure Priority: Secondary Status: Chronic Qualifiers: Heart failure type: other Qualified Code(s): I50.9 - Heart failure, unspecified (7) CKD (chronic kidney disease), stage III Priority: Secondary Status: Chronic (8) CAD (coronary artery disease) Priority: Secondary Status: Chronic Qualifiers: Coronary Disease-Associated Artery/Lesion type: [place] artery [place] vs. transplanted heart: [place] heart Associated angina: without angina Qualified Code(s): I25.10 - Atherosclerotic heart disease of [place] coronary artery without angina pectoris (9) Chronic atrial fibrillation Priority: Secondary Status: Chronic (10) Elevated INR Priority: Secondary Status: Acute Hospital course: Ms. Fischer is a 73 year old female past medical history of CAD chronic atrial fibrillation chronic kidney disease diastolic congestive heart failure diabetes subdural hematoma secondary to fall tremor presented to [facility] ED with decreased level of consciousness as a fall at home. She had recently been discharged from [facility] and had recently moved into a new house she felt sick or vomiting. She was using her walker at home and his she felt weak and fell to the floor she did hit her head. Patient denies any loss of consciousness. She did undergo CT of head which is negative for any acute bleed CT of abdomen and pelvis which showed a distended bladder and tree-in-bud changes of left lower lung field suspicious for infection versus aspiration. She was initially placed on Zosyn and vancomycin due to recent admission. Lab work did show a AK I-patient was given gentle hydration and diuretics were held she was also supratherapeutic on her INR Coumadin was held and she did return back down to baseline with INR 1.9 we will resume home dose and recheck INR later this week. Troponin was slightly elevated but appears to be chronic urine culture was negative blood cultures were negative vital signs were stable. He was evaluated by PT and OT recommending inpatient rehabilitation she has been accepted at [facility] currently she is hemodynamically stable. She will be discharged with prescription of Augmentin she will follow-up with primary care provider as well as nephrology we will recheck her Chem-7 later this week. - Time Spent with Patient Total time spent providing and/or coordinating discharge services: - Discharge Medications Prescriptions: New Amoxicillin/Clavulanate [Augmentin] 500 mg PO BIDWM 10 Days #20 tablet Continued Rosuvastatin [Crestor] 40 mg PO QPM Escitalopram [Lexapro] 20 mg PO DAILY traZODone [TraZODone] 50 mg PO HS Ranolazine [Ranexa] 1,000 mg PO BID Anastrozole [Arimidex] 1 mg PO DAILY Warfarin [Coumadin] 2 mg PO SUMOWETHFR Amiodarone HCl 200 mg PO DAILY Insulin LISPRO [Humalog Kwikpen U-100] 0 - 15 unit SQ TIDWM Lactulose 10 gm PO Q72H PRN PRN Reason: Constipation Semaglutide [Ozempic] 0.25 mg SQ FR Clopidogrel [Plavix] 75 mg PO QAM Potassium Chloride [Klor-Con 10] 20 meq PO BID Warfarin [Coumadin] 1 mg PO TUSA levETIRAcetam [Keppra] 500 mg PO Q12HR #120 tablet Furosemide [Lasix] 20 mg PO BID Isosorbide MONOnitrate (24 HR) [Imdur] 60 mg PO BID Pantoprazole Sodium 40 mg PO DAILY Diltiazem HCl [Tiazac] 120 mg PO DAILY Cholecalciferol (Vitamin D3) [Vitamin D3] 1,000 unit PO DAILY Acetaminophen [Tylenol] 650 mg PO Q6HR PRN tablet PRN Reason: Analgesia Insulin DETEMIR [Levemir] 20 unit SQ HS [id number] Discontinued metOLazone [Zaroxolyn] 2.5 mg PO 2XW PRN PRN Reason: WEIGHT GAIN Sulfamethoxazole/Trimeth DS [Bactrim Ds] 1 tab PO BID No Action Spironolactone [Aldactone] 25 mg PO DAILY Home Medications: Escitalopram [Lexapro] 20 mg PO DAILY 05/16/15 [History] Rosuvastatin [Crestor] 40 mg PO QPM 05/16/15 [History] traZODone [TraZODone] 50 mg PO HS 03/19/17 [History] Ranolazine [Ranexa] 1,000 mg PO BID 01/03/18 [History] Anastrozole [Arimidex] 1 mg PO DAILY 05/14/18 [History] Spironolactone [Aldactone] 25 mg PO DAILY 01/11/19 [History] Warfarin [Coumadin] 2 mg PO SUMOWETHFR 01/11/19 [History] Amiodarone HCl 200 mg PO DAILY 01/12/19 [History] Insulin LISPRO [Humalog Kwikpen U-100] 0 - 15 unit SQ TIDWM 02/13/19 [History] Lactulose 10 gm PO Q72H PRN 02/13/19 [History] Semaglutide [Ozempic] 0.25 mg SQ FR 04/08/19 [History] Clopidogrel [Plavix] 75 mg PO QAM 04/10/19 [History] Potassium Chloride [Klor-Con 10] 20 meq PO BID 04/10/19 [History] Warfarin [Coumadin] 1 mg PO TUSA 04/16/19 [History] levETIRAcetam [Keppra] 500 mg PO Q12HR #120 tablet 04/18/19 [Rx] Furosemide [Lasix] 20 mg PO BID 04/23/19 [History] Cholecalciferol (Vitamin D3) [Vitamin D3] 1,000 unit PO DAILY 04/29/19 [History] Acetaminophen [Tylenol] 650 mg PO Q6HR PRN tablet 05/06/19 [Rx] Insulin DETEMIR [Levemir] 20 unit SQ HS [id number] 05/06/19 [Rx] Isosorbide MONOnitrate (24 HR) [Imdur] 60 mg PO BID 05/10/19 [History] Pantoprazole Sodium 40 mg PO DAILY 05/10/19 [History] Diltiazem HCl [Tiazac] 120 mg PO DAILY 05/11/19 [History] Amoxicillin/Clavulanate [Augmentin] 500 mg PO BIDWM 10 Days #20 tablet 05/13/19 [Rx] Allergies/Adverse Reactions: Allergy/AdvReac Type Severity Reaction Status Date / Time phenylbutazone Allergy Rash Verified 05/14/18 14:15 [From Butazolidin] amitriptyline [From Elavil] AdvReac Headache Verified 05/14/18 14:15 codeine AdvReac Headache Verified 05/14/18 14:15 desipramine AdvReac Headache Verified 05/14/18 14:15 lisinopril AdvReac Cough Verified 05/14/18 14:15 meperidine [From Demerol] AdvReac Headache Verified 05/14/18 14:15 nalbuphine AdvReac Headache Verified 05/14/18 14:15 Nortriptyline AdvReac Headache Verified 05/14/18 14:15 tiagabine AdvReac Headache Verified 05/14/18 14:15 Date of admission: 05/10/19 05:49 Primary care physician: PCP NONE Consults: 05/10/19 07:46 Consult to Physical Therapy [CONS] Routine Comment: Evaluate, develop and implement POC Reason for Consult: dc plan Does patient have active BEDREST order?: No Is patient medically & hemodynamically stable?: Yes Patient assessed for mobility or mobilized this visit?: Yes OT [Consult to Occupational Therapy] [CONS] Routine Comment: Evaluate, develop and implement POC Reason for Consult: dc plan Does patient have active BEDREST order?: No Is patient medically & hemodynamically stable?: Yes Patient assessed for mobility or mobilized this visit?: Yes 05/12/19 08:41 Consult to Equity Sales Assistant [CONS] Routine Reason for SW Consult: PT/OT RECOMMEND SNF Discharging clinician: Nena Stratton Anticipated date of discharge: 05/13/19 - Constitutional Vitals: Temp Pulse Resp BP Pulse Ox 97.8 F 60 16 136/70 98 05/13/19 06:53 05/13/19 06:53 05/13/19 06:53 05/13/19 06:53 05/13/19 06:53 General appearance: Present: A&O X 3 Exam: . - Patient Status Disposition: Transfer SNF Condition: Fair Functional capacity at discharge: uses cane/walker Overall status at discharge: patient is back to baseline - Ambulatory Orders Ambulatory Orders: Basic Metabolic Panel [CHEM] Time Frame: 04/17/20, Facility: [facility], Location: Lab Prothrombin Time INR [COAG] Time Frame: 04/16/20, Facility: [facility], Location: Lab - Discharge Instructions Follow Up With: Adalberto Quijano MD [Partnered Physician] - 05/19/19 9:45 am Adeel Sharma DO [Partnered Physician] - (Appointment has been requested. Office will call with date and time of appointment. ) - Diet and Activity Activity: as per physical therapy Diet: advance to your usual diet
[2019-05-13] MEDS: levETIRAcetam 250 MG TABLET PO SCH (11:38)
[2019-05-13] MEDS: *HR* Amiodarone 200 MG TABLET PO SCH (11:38)
[2019-05-13] MEDS: Isosorbide MONOnitrate (24 HR) 60 MG TAB.ER.24H PO SCH (11:39)
[2019-05-13] MEDS: Cholecalciferol (D-3) 1,000 UNIT (25MCG) TABLET PO SCH (11:39)
[2019-05-13] MEDS: Piperacillin/Tazobactam 3.375 GM in 0.9 % Sodium Chloride Mini Bag 100 ML IVPB SCH (11:40)
[2019-05-13] MEDS: Ranolazine 500 MG TAB.ER.12H PO SCH (11:40)
[2019-05-13] MEDS: Anastrozole 1 MG TABLET PO SCH (11:40)
--- NOTE | 2019-05-13 12:05 | Physician Discharge Referral ---
ExtendedCare Referral Info Transfer To: [facility] Provider in Charge: Nena Stratton Provider in Charge after Transfer: PCP Institutional Level of Care: Skilled - Diagnosis (1) Fall Priority: Primary Status: Acute (2) Altered mental status Priority: Secondary Status: Acute (3) Diabetes Priority: Secondary Status: Chronic (4) Elevated troponin Priority: Secondary Status: Chronic (5) HTN (hypertension) Priority: Secondary Status: Chronic (6) Congestive heart failure Priority: Secondary Status: Chronic (7) CKD (chronic kidney disease), stage III Priority: Secondary Status: Chronic (8) CAD (coronary artery disease) Priority: Secondary Status: Chronic (9) Chronic atrial fibrillation Priority: Secondary Status: Chronic (10) Elevated INR Priority: Secondary Status: Acute - Transfer Medications Prescriptions: Amoxicillin/Clavulanate [Augmentin] 500 mg PO BIDWM 10 Days #20 tablet Home Medications: Escitalopram [Lexapro] 20 mg PO DAILY 05/16/15 [History] Rosuvastatin [Crestor] 40 mg PO QPM 05/16/15 [History] traZODone [TraZODone] 50 mg PO HS 03/19/17 [History] Ranolazine [Ranexa] 1,000 mg PO BID 01/03/18 [History] Anastrozole [Arimidex] 1 mg PO DAILY 05/14/18 [History] Spironolactone [Aldactone] 25 mg PO DAILY 01/11/19 [History] Warfarin [Coumadin] 2 mg PO SUMOWETHFR 01/11/19 [History] Amiodarone HCl 200 mg PO DAILY 01/12/19 [History] Insulin LISPRO [Humalog Kwikpen U-100] 0 - 15 unit SQ TIDWM 02/13/19 [History] Lactulose 10 gm PO Q72H PRN 02/13/19 [History] Semaglutide [Ozempic] 0.25 mg SQ FR 04/08/19 [History] Clopidogrel [Plavix] 75 mg PO QAM 04/10/19 [History] Potassium Chloride [Klor-Con 10] 20 meq PO BID 04/10/19 [History] Warfarin [Coumadin] 1 mg PO TUSA 04/16/19 [History] levETIRAcetam [Keppra] 500 mg PO Q12HR #120 tablet 04/18/19 [Rx] Furosemide [Lasix] 20 mg PO BID 04/23/19 [History] Cholecalciferol (Vitamin D3) [Vitamin D3] 1,000 unit PO DAILY 04/29/19 [History] Acetaminophen [Tylenol] 650 mg PO Q6HR PRN tablet 05/06/19 [Rx] Insulin DETEMIR [Levemir] 20 unit SQ HS [id number] 05/06/19 [Rx] Isosorbide MONOnitrate (24 HR) [Imdur] 60 mg PO BID 05/10/19 [History] Pantoprazole Sodium 40 mg PO DAILY 05/10/19 [History] Diltiazem HCl [Tiazac] 120 mg PO DAILY 05/11/19 [History] Amoxicillin/Clavulanate [Augmentin] 500 mg PO BIDWM 10 Days #20 tablet 05/13/19 [Rx] Allergies/Adverse Reactions: Allergy/AdvReac Type Severity Reaction Status Date / Time phenylbutazone Allergy Rash Verified 05/14/18 14:15 [From Butazolidin] amitriptyline [From Elavil] AdvReac Headache Verified 05/14/18 14:15 codeine AdvReac Headache Verified 05/14/18 14:15 desipramine AdvReac Headache Verified 05/14/18 14:15 lisinopril AdvReac Cough Verified 05/14/18 14:15 meperidine [From Demerol] AdvReac Headache Verified 05/14/18 14:15 nalbuphine AdvReac Headache Verified 05/14/18 14:15 Nortriptyline AdvReac Headache Verified 05/14/18 14:15 tiagabine AdvReac Headache Verified 05/14/18 14:15 - Respiratory Orders Smoking Cessation: Smoking cessation has been advised. For more information, call the [place] Tobacco Quit Line at 0-269-NYUT-NOW. - Advance Directives Living Will: No Power of [place] Spear for Health Care: No Code Status: Full Code - Mobility Orders Ambulate - Rehabiliation Orders Rehab Potential: Good Rehab Orders: Evaluation for Physical Therapy, Evaluation for Occupational Therapy - Diet Orders Regular (check PT/INR and chem 7- 9/) CERTIFICATION: I certify that the transfer of the above named patient to an Extended Care Facility is necessary for the continuing treatment of the diagnosis listed. The above information is true and accurate reflection of patient's current condition. Confidential - Redisclosure prohibited without a patient's written consent.
[2019-05-13 15:39] VITALS: BP 117/73
[2019-05-13] MEDS ORDERED: *HR* Warfarin 2 MG TABLET PO ONE (18:00)
[2019-05-14] MEDS ORDERED: Furosemide 20 MG TABLET PO SCH (09:24)
== END 2019-05-13 16:45 ==
LOC: 3BNU 02:00 → EMEROOARM 02:00 → 3BNU 06:50
PROVIDERS: ADMIT Pediatrics; ATTEND Pediatrics

== ENCOUNTER 2020-08-25 11:44 | Inpatient (IN) ==
[2020-08-25] MEDS ORDERED: Morphine Sulfate 2 MG/ML SYRINGE IVP ONE (11:55)
[2020-08-25] MEDS ORDERED: Ondansetron 4 MG/2 ML VIAL IVP ONE (12:13)
[2020-08-25 13:33] LABS: Prothrombin Time 23.1 Seconds (9.4-12.1)
[2020-08-25 13:36] LABS: Activated Partial Thrombo Time 29.2 Seconds (26.0-36.0)
[2020-08-25] MEDS ORDERED: Aspirin 325 MG TABLET PO ONE (13:50)
[2020-08-25 13:59] LABS: Basophils % 0.3 %; Eosinophils # 0.3 K/mcL (0.0-0.6); Eosinophils % 2.7 %; Hematocrit 40.6 % (35.3-44.9); Hemoglobin 13.1 g/dL (11.5-15.4); Immature Granulocytes % 2.1 % (0-4); Lymphocytes # 0.6 K/mcL (0.6-4.6); Mean Corpuscular HGB Conc 32.3 g/dL (31.6-35.5); Mean Corpuscular Hemoglobin 29.2 pg (28.0-33.3); Mean Corpuscular Volume 90.6 fL (83.0-100.0); Monocytes # 0.6 K/mcL (0.0-1.3); Monocytes % 6.8 %; Neutrophils # 7.7 K/mcL (1.6-8.9); Platelet Count 122 K/mcL (140-400); Red Blood Count 4.48 M/mcL (3.82-4.97); Red Cell Distribution Width 13.9 % (11.5-14.5); Segmented Neutrophils % 82.1 %; White Blood Count 9.4 K/mcL (4.3-11.1)
[2020-08-25 14:23] LABS: Calcium 11.1 mg/dL (8.6-10.3); Potassium 3.5 mEq/L (3.5-5.1); Troponin I 0.1 ng/mL (< 0.04)
[2020-08-25] MEDS ORDERED: Naloxone 0.4 MG/ML INJ IVP PRN (15:23)
[2020-08-25] MEDS ORDERED: metOLazone 2.5 MG TABLET PO PRN (15:28)
[2020-08-25] MEDS ORDERED: *HR* Heparin 5,000 UNIT/ML VIAL IVP ONE (15:32)
[2020-08-25] MEDS ORDERED: *HR* Heparin 5,000 UNIT/ML VIAL IVP PRN ×2 (15:32)
[2020-08-25] MEDS ORDERED: Dextrose Gel 15 GM/37.5 ML TUBE PO PRN ×2 (15:33)
[2020-08-25] MEDS ORDERED: *HR* Dextrose 50 % in Water (Vial) 50 ML VIAL IVP PRN (15:33)
[2020-08-25] MEDS ORDERED: D5% in Water 1,000 ML IVC PRN (15:33)
[2020-08-25] MEDS ORDERED: Perflutren Lipid Microsphere 1.3 ML in 0.9 % Sodium Chloride 8.7 ML IVP PRN (15:38)
[2020-08-25] MEDS: Heparin 25,000UNIT/250ML 1/2NS 25,000 UNIT/250 ML IV.SOLN IVC SCH (16:48)
[2020-08-25 17:19] LABS: Hematocrit 39.9 % (35.3-44.9); Hemoglobin 13.1 g/dL (11.5-15.4); Mean Corpuscular HGB Conc 32.8 g/dL (31.6-35.5); Mean Corpuscular Hemoglobin 29.4 pg (28.0-33.3); Mean Corpuscular Volume 89.7 fL (83.0-100.0); Mean Platelet Volume 9.6 fL (9.4-12.4); Platelet Count 118 K/mcL (140-400); Red Blood Count 4.45 M/mcL (3.82-4.97); Red Cell Distribution Width 13.7 % (11.5-14.5); White Blood Count 8.5 K/mcL (4.3-11.1)
[2020-08-25 17:26] LABS: Heparin anti-factor XA UFH 0.04 IU/mL (0.30-0.70); INR 1.9
[2020-08-25 17:42] LABS: Magnesium 2.2 mg/dL (1.6-2.6)
[2020-08-25 17:50] LABS: Troponin I 0.13 ng/mL (< 0.04)
[2020-08-25] MEDS: Insulin LISPRO 300 UNITS/3 ML VIAL SQ SCH ×2 (18:09→21:35)
[2020-08-25] MEDS: traZODone 50 MG TABLET PO SCH (21:33)
[2020-08-25] MEDS: Isosorbide MONOnitrate (24 HR) 60 MG TAB.ER.24H PO SCH (21:35)
[2020-08-26] MEDS: Nitroglycerin 0.4 MG TAB.SUBL SL PRN ×3 (00:48→01:00)
[2020-08-26] MEDS ORDERED: Morphine Sulfate 2 MG/ML SYRINGE IVP PRN (01:24)
[2020-08-26 02:07] LABS: Basophils # 0.1 K/mcL (0.0-0.2); Basophils % 0.6 %; Eosinophils # 0.3 K/mcL (0.0-0.6); Eosinophils % 3.2 %; Hematocrit 43.4 % (35.3-44.9); Hemoglobin 14.2 g/dL (11.5-15.4); Immature Granulocytes % 2.8 % (0-4); Lymphocytes # 0.9 K/mcL (0.6-4.6); Lymphocytes % 9.4 %; Mean Corpuscular HGB Conc 32.7 g/dL (31.6-35.5); Mean Corpuscular Hemoglobin 29.5 pg (28.0-33.3); Mean Corpuscular Volume 90.2 fL (83.0-100.0); Mean Platelet Volume 9.5 fL (9.4-12.4); Monocytes # 0.7 K/mcL (0.0-1.3); Monocytes % 7.4 %; Platelet Count 119 K/mcL (140-400); Red Blood Count 4.81 M/mcL (3.82-4.97); Segmented Neutrophils % 76.6 %; White Blood Count 9.7 K/mcL (4.3-11.1)
[2020-08-26 02:08] LABS: Neutrophils # 7.4 K/mcL (1.6-8.9)
[2020-08-26 02:18] LABS: Calcium 10.8 mg/dL (8.6-10.3); Potassium 3.9 mEq/L (3.5-5.1)
[2020-08-26] MEDS: Insulin LISPRO 300 UNITS/3 ML VIAL SQ SCH ×4 (08:29→21:38)
[2020-08-26] MEDS: Aspirin 81 MG TAB.CHEW PO SCH (08:30)
[2020-08-26] MEDS: Ranolazine 500 MG TAB.ER.12H PO SCH (08:31)
[2020-08-26] MEDS: Isosorbide MONOnitrate (24 HR) 60 MG TAB.ER.24H PO SCH ×2 (08:31→21:32)
[2020-08-26] MEDS: Furosemide 40 MG/4 ML VIAL IVP SCH (08:31)
[2020-08-26] MEDS: *HR* Amiodarone 200 MG TABLET PO SCH (08:31)
[2020-08-26] MEDS: Anastrozole 1 MG TABLET PO SCH (08:32)
[2020-08-26] MEDS: Spironolactone 25 MG TABLET PO SCH (08:32)
[2020-08-26] MEDS ORDERED: Furosemide 40 MG in 0.9 % Sodium Chloride 50 ML IV SCH (09:00)
[2020-08-26 10:27] LABS: Bilirubin,Urine Negative (Negative); Blood,Urine Negative (Negative); Clarity,Urine Turbid (Clear); Color,Urine Light-Yellow (Yellow); Glucose,Urine (UA) Normal (Normal); Ketones,Urine Negative (Negative); Leukocyte Esterase,Urine Small (Negative); Nitrite,Urine Negative (Negative); PH,Urine 6.5 pH Units (5.0-8.0); Protein,Urine Trace mg/dL (Neg-Trace); RBC,Urine 0-3 per hpf (0-3); Specific Gravity,Urine 1.011 (1.010-1.025); Urobilinogen,Urine Normal (Normal); WBC,Urine 15-30 per hpf (0-3)
[2020-08-26 11:35] LABS: Heparin anti-factor XA UFH 0.49 IU/mL (0.30-0.70)
[2020-08-26 11:43] LABS: Albumin 3.7 g/dL (3.5-5.7); Albumin/Globulin Ratio 1.5 (1.1-2.2); Bilirubin,Direct 0.2 mg/dL (0.0-0.2); Bilirubin,Indirect 0.5 mg/dL (0.0-1.0); Bilirubin,Total 0.7 mg/dL (0.3-1.0); Chol/HDL Ratio 2.5 (0-4.9); Globulin 2.5 g/dL (2.4-3.5); Total Protein 6.2 g/dL (6.4-8.9)
[2020-08-26 11:55] LABS: Thyroid Stimulating Hormone 1.252 mcIU/mL (0.340-5.600)
[2020-08-26] MEDS ORDERED: cefTRIAXone 1,000 MG in 0.9 % Sodium Chloride Mini Bag 100 ML IVPB SCH (13:00)
[2020-08-26] MEDS: Sulfamethoxazole/Trimeth DS 1 EACH TABLET PO SCH ×2 (14:57→21:32)
[2020-08-26 15:50] LABS: Folate 18.4 ng/mL (3.0-16.0)
[2020-08-26 15:52] LABS: Vitamin B12 > 1500 pg/mL (250-1100)
[2020-08-26] MEDS: MELATONIN 20 MG PO SCH (17:11)
[2020-08-26] MEDS ORDERED: Lactulose Oral Soln 20 GM/30 ML UDC PO SCH (18:45)
[2020-08-26] MEDS: Heparin 25,000UNIT/250ML 1/2NS 25,000 UNIT/250 ML IV.SOLN IVC SCH (21:30)
[2020-08-26] MEDS: traZODone 50 MG TABLET PO SCH (21:32)
[2020-08-26] MEDS: predniSONE 20 MG TABLET PO SCH (21:32)
[2020-08-26] MEDS: Famotidine 20 MG TABLET PO SCH (21:32)
[2020-08-27] MEDS: Isosorbide MONOnitrate (24 HR) 60 MG TAB.ER.24H PO SCH ×2 (08:42→21:58)
[2020-08-27] MEDS: Ranolazine 500 MG TAB.ER.12H PO SCH (08:43)
[2020-08-27] MEDS: Lactulose Oral Soln 20 GM/30 ML UDC PO SCH (08:43)
[2020-08-27] MEDS: Anastrozole 1 MG TABLET PO SCH (08:44)
[2020-08-27] MEDS: Cyanocobalamin (B-12) 1,000 MCG TABLET PO SCH (08:44)
[2020-08-27] MEDS: Famotidine 20 MG TABLET PO SCH (08:44)
[2020-08-27] MEDS: predniSONE 20 MG TABLET PO SCH (08:45)
[2020-08-27] MEDS: Spironolactone 25 MG TABLET PO SCH (08:45)
[2020-08-27] MEDS: Sulfamethoxazole/Trimeth DS 1 EACH TABLET PO SCH (08:45)
[2020-08-27] MEDS: Insulin LISPRO 300 UNITS/3 ML VIAL SQ SCH ×4 (08:46→21:45)
[2020-08-27] MEDS ORDERED: cefTRIAXone 1,000 MG in Water for inj. (sterile) 10 ML IVP SCH (09:00)
[2020-08-27 09:48] LABS: Estimated Average Glucose 126 mg/dl
[2020-08-27 10:50] LABS: Basophils % 0.2 %; Eosinophils % 0.1 %; Hematocrit 46.6 % (35.3-44.9); Hemoglobin 15.4 g/dL (11.5-15.4); Lymphocytes # 0.5 K/mcL (0.6-4.6); Lymphocytes % 3.9 %; Mean Corpuscular Hemoglobin 30.1 pg (28.0-33.3); Mean Corpuscular Volume 91.2 fL (83.0-100.0); Mean Platelet Volume 9.8 fL (9.4-12.4); Monocytes # 0.1 K/mcL (0.0-1.3); Monocytes % 1.1 %; Neutrophils # 11.8 K/mcL (1.6-8.9); Platelet Count 137 K/mcL (140-400); Red Blood Count 5.11 M/mcL (3.82-4.97); Red Cell Distribution Width 13.7 % (11.5-14.5); Segmented Neutrophils % 93.7 %; White Blood Count 12.6 K/mcL (4.3-11.1)
[2020-08-27] MEDS: cefTRIAXone 1,000 MG in Water for inj. (sterile) 10 ML IVP SCH (11:06)
[2020-08-27] MEDS: Furosemide 40 MG/4 ML VIAL IVP SCH (11:08)
[2020-08-27] MEDS: Doxycycline 100 MG in 0.9 % Sodium Chloride Mini Bag 100 ML IVPB SCH ×2 (11:09→18:42)
[2020-08-27] MEDS: Heparin 25,000UNIT/250ML 1/2NS 25,000 UNIT/250 ML IV.SOLN IVC SCH (11:09)
[2020-08-27] MEDS: Aspirin 81 MG TAB.CHEW PO SCH (11:09)
[2020-08-27] MEDS: *HR* Amiodarone 200 MG TABLET PO SCH (11:09)
[2020-08-27 11:24] LABS: Calcium 10.7 mg/dL (8.6-10.3); Magnesium 2.3 mg/dL (1.6-2.6); Phosphorous 4.4 mg/dL (2.7-4.5); Potassium 3.8 mEq/L (3.5-5.1)
[2020-08-27] MEDS: MELATONIN 20 MG PO SCH (18:44)
[2020-08-27] MEDS: traZODone 50 MG TABLET PO SCH (21:58)
[2020-08-27] MEDS ORDERED: Doxycycline 100 MG CAPSULE PO SCH (22:00)
[2020-08-28] MEDS ORDERED: Melatonin 3 MG TABLET PO ONE (02:44)
[2020-08-28] MEDS: predniSONE 20 MG TABLET PO SCH (03:38)
[2020-08-28 07:09] LABS: Basophils % 0.1 %; Immature Granulocytes % 1.2 % (0-4); Lymphocytes # 0.7 K/mcL (0.6-4.6); Lymphocytes % 3.2 %; Mean Corpuscular HGB Conc 34.1 g/dL (31.6-35.5); Mean Corpuscular Hemoglobin 29.6 pg (28.0-33.3); Mean Corpuscular Volume 86.9 fL (83.0-100.0); Mean Platelet Volume 9.9 fL (9.4-12.4); Monocytes # 0.9 K/mcL (0.0-1.3); Monocytes % 4.2 %; Neutrophils # 18.5 K/mcL (1.6-8.9); Platelet Count 131 K/mcL (140-400); Red Blood Count 4.26 M/mcL (3.82-4.97); Red Cell Distribution Width 13.7 % (11.5-14.5); Segmented Neutrophils % 91.3 %
[2020-08-28 07:14] LABS: Hemoglobin 12.6 g/dL (11.5-15.4); White Blood Count 20.3 K/mcL (4.3-11.1)
[2020-08-28 07:45] LABS: Calcium 9.4 mg/dL (8.6-10.3); Magnesium 2.3 mg/dL (1.6-2.6); Phosphorous 2.4 mg/dL (2.7-4.5); Potassium 3.9 mEq/L (3.5-5.1)
[2020-08-28] MEDS ORDERED: Vancomycin 1,500 MG/265 ML IV.SOLN IVPB SCH (08:00)
[2020-08-28] MEDS ORDERED: levoFLOXacin 750 MG/150 ML 750 MG/150 ML BAG IVPB ONE (09:00)
[2020-08-28] MEDS ORDERED: Ranolazine 500 MG TAB.ER.12H PO SCH (09:00)
[2020-08-28] MEDS ORDERED: Vancomycin 1 EACH in 0.9 % Sodium Chloride 250 ML IVPB SCH (09:00)
[2020-08-28] MEDS ORDERED: Famotidine 20 MG TABLET PO SCH ×2 (09:00)
[2020-08-28] MEDS: Lactulose Oral Soln 20 GM/30 ML UDC PO SCH (10:59)
[2020-08-28] MEDS: cefTRIAXone 1,000 MG in Water for inj. (sterile) 10 ML IVP SCH (10:59)
[2020-08-28] MEDS: Furosemide 40 MG TABLET PO SCH (11:00)
[2020-08-28] MEDS: *HR* Amiodarone 200 MG TABLET PO SCH (11:00)
[2020-08-28] MEDS: Anastrozole 1 MG TABLET PO SCH (11:00)
[2020-08-28] MEDS: Isosorbide MONOnitrate (24 HR) 60 MG TAB.ER.24H PO SCH ×2 (11:00→20:28)
[2020-08-28] MEDS: Aspirin 81 MG TAB.CHEW PO SCH (11:00)
[2020-08-28] MEDS: Spironolactone 25 MG TABLET PO SCH (11:00)
[2020-08-28] MEDS: Cyanocobalamin (B-12) 1,000 MCG TABLET PO SCH (11:00)
[2020-08-28] MEDS: Insulin LISPRO 300 UNITS/3 ML VIAL SQ SCH ×3 (11:04→17:52)
[2020-08-28] MEDS: Nitroglycerin 0.4 MG TAB.SUBL SL PRN ×2 (15:29→16:05)
[2020-08-28] MEDS ORDERED: Ipratropium/Albuterol Neb 3 ML IH PRN (16:54)
[2020-08-28 17:15] LABS: INR 4.2
[2020-08-28 17:17] LABS: Heparin anti-factor XA UFH > 2.00 IU/mL (0.30-0.70); Prothrombin Time 47.1 Seconds (9.4-12.1)
[2020-08-28] MEDS: Melatonin 3 MG TABLET PO SCH (17:50)
[2020-08-28] MEDS ORDERED: Warfarin perPT PO PRN (18:00)
[2020-08-28] MEDS: Insulin DETEMIR 100 UNIT/ML X5UNITS SQ SCH (20:25)
[2020-08-29] MEDS: Heparin 25,000UNIT/250ML 1/2NS 25,000 UNIT/250 ML IV.SOLN IVC SCH ×2 (01:00→07:54)
[2020-08-29 04:43] LABS: Basophils % 0.2 %; Eosinophils # 0.3 K/mcL (0.0-0.6); Eosinophils % 1.9 %; Hematocrit 39.1 % (35.3-44.9); Hemoglobin 12.8 g/dL (11.5-15.4); Immature Granulocytes % 1.1 % (0-4); Lymphocytes # 0.7 K/mcL (0.6-4.6); Lymphocytes % 5.5 %; Mean Corpuscular HGB Conc 32.7 g/dL (31.6-35.5); Mean Corpuscular Hemoglobin 29.4 pg (28.0-33.3); Mean Corpuscular Volume 89.9 fL (83.0-100.0); Mean Platelet Volume 9.9 fL (9.4-12.4); Monocytes # 0.7 K/mcL (0.0-1.3); Monocytes % 5.2 %; Neutrophils # 11.4 K/mcL (1.6-8.9); Platelet Count 143 K/mcL (140-400); Red Blood Count 4.35 M/mcL (3.82-4.97); Red Cell Distribution Width 13.7 % (11.5-14.5); Segmented Neutrophils % 86.1 %; White Blood Count 13.2 K/mcL (4.3-11.1)
[2020-08-29 05:00] LABS: Calcium 9.9 mg/dL (8.6-10.3); Phosphorous 2.1 mg/dL (2.7-4.5); Potassium 3.8 mEq/L (3.5-5.1); Uric Acid 6.6 mg/dL (2.3-7.6)
[2020-08-29 05:11] LABS: Prothrombin Time 22.3 Seconds (9.4-12.1)
[2020-08-29 05:34] LABS: Hepatitis B Surface Antigen Nonreactive (Nonreactive)
[2020-08-29 06:03] LABS: Hepatitis B Core IgM Nonreactive (Nonreactive); Hepatitis C Virus Antibody Nonreactive (Nonreactive)
[2020-08-29 06:05] LABS: Hepatitis A Antibody IgM Nonreactive (Nonreactive)
[2020-08-29] MEDS: Insulin LISPRO 300 UNITS/3 ML VIAL SQ SCH ×3 (07:52→16:18)
[2020-08-29] MEDS: Spironolactone 25 MG TABLET PO SCH (07:53)
[2020-08-29] MEDS: Lactulose Oral Soln 20 GM/30 ML UDC PO SCH (07:53)
[2020-08-29] MEDS: *HR* Amiodarone 200 MG TABLET PO SCH (07:54)
[2020-08-29] MEDS: Isosorbide MONOnitrate (24 HR) 60 MG TAB.ER.24H PO SCH ×2 (07:54→20:44)
[2020-08-29] MEDS: Furosemide 40 MG TABLET PO SCH (07:54)
[2020-08-29] MEDS: Anastrozole 1 MG TABLET PO SCH (07:54)
[2020-08-29] MEDS: Cyanocobalamin (B-12) 1,000 MCG TABLET PO SCH (07:54)
[2020-08-29] MEDS: Cefepime HCl 2,000 MG in Water for inj. (sterile) 20 ML IVP SCH (11:33)
[2020-08-29] MEDS: Ondansetron 4 MG/2 ML VIAL IVP PRN (13:38)
[2020-08-29] MEDS ORDERED: GI Cocktail 40 ML EACH PO ONE (13:50)
[2020-08-29] MEDS: Melatonin 3 MG TABLET PO SCH (17:13)
[2020-08-29] MEDS ORDERED: *HR* Warfarin 1 MG TABLET PO ONE (18:00)
[2020-08-29] MEDS: Insulin DETEMIR 100 UNIT/ML X5UNITS SQ SCH (20:45)
[2020-08-29] MEDS: Famotidine 20 MG TABLET PO SCH (20:45)
[2020-08-29] MEDS: traZODone 50 MG TABLET PO PRN (20:49)
[2020-08-30] MEDS: Insulin LISPRO 300 UNITS/3 ML VIAL SQ SCH ×3 (07:55→16:40)
[2020-08-30] MEDS: Cyanocobalamin (B-12) 1,000 MCG TABLET PO SCH (08:02)
[2020-08-30] MEDS: Isosorbide MONOnitrate (24 HR) 60 MG TAB.ER.24H PO SCH ×2 (08:02→19:52)
[2020-08-30] MEDS: Furosemide 40 MG TABLET PO SCH (08:02)
[2020-08-30] MEDS: Spironolactone 25 MG TABLET PO SCH (08:02)
[2020-08-30] MEDS: *HR* Amiodarone 200 MG TABLET PO SCH (08:02)
[2020-08-30] MEDS: Famotidine 20 MG TABLET PO SCH ×2 (08:02→19:52)
[2020-08-30] MEDS: Anastrozole 1 MG TABLET PO SCH (08:02)
[2020-08-30] MEDS: Lactulose Oral Soln 20 GM/30 ML UDC PO SCH (08:03)
[2020-08-30] MEDS: Ondansetron 4 MG/2 ML VIAL IVP PRN (08:05)
[2020-08-30] MEDS ORDERED: levoFLOXacin 500 MG/100 ML 500 MG/100 ML BAG IVPB SCH (09:00)
[2020-08-30 10:53] LABS: INR 1.4; Prothrombin Time 15.8 Seconds (9.4-12.1)
[2020-08-30 10:54] LABS: Potassium 3.9 mEq/L (3.5-5.1)
[2020-08-30 11:00] LABS: Basophils % 0.3 %; Eosinophils # 0.4 K/mcL (0.0-0.6); Eosinophils % 4.1 %; Hematocrit 41.8 % (35.3-44.9); Hemoglobin 13.8 g/dL (11.5-15.4); Immature Granulocytes % 1.1 % (0-4); Lymphocytes # 0.5 K/mcL (0.6-4.6); Lymphocytes % 5.4 %; Mean Corpuscular Volume 90.9 fL (83.0-100.0); Mean Platelet Volume 9.7 fL (9.4-12.4); Monocytes # 0.6 K/mcL (0.0-1.3); Monocytes % 6.7 %; Neutrophils # 7.7 K/mcL (1.6-8.9); Platelet Count 144 K/mcL (140-400); Red Cell Distribution Width 13.9 % (11.5-14.5); Segmented Neutrophils % 82.4 %; White Blood Count 9.3 K/mcL (4.3-11.1)
[2020-08-30] MEDS ORDERED: *HR* Heparin 5,000 UNIT/ML VIAL IVP PRN ×2 (11:45)
[2020-08-30] MEDS ORDERED: *HR* Heparin 5,000 UNIT/ML VIAL IVP ONE (11:45)
[2020-08-30] MEDS: Cefepime HCl 2,000 MG in Water for inj. (sterile) 20 ML IVP SCH (12:21)
[2020-08-30] MEDS: Heparin 25,000UNIT/250ML 1/2NS 25,000 UNIT/250 ML IV.SOLN IVC SCH (12:29)
[2020-08-30] MEDS ORDERED: *HR* Warfarin 1 MG TABLET PO ONE (18:00)
[2020-08-30] MEDS: Melatonin 3 MG TABLET PO SCH (18:35)
[2020-08-30] MEDS: traZODone 50 MG TABLET PO PRN (19:53)
[2020-08-30] MEDS: Insulin DETEMIR 100 UNIT/ML X5UNITS SQ SCH (20:38)
[2020-08-31] MEDS: Insulin LISPRO 300 UNITS/3 ML VIAL SQ SCH ×3 (07:32→17:34)
[2020-08-31] MEDS: Spironolactone 25 MG TABLET PO SCH (07:49)
[2020-08-31] MEDS: Anastrozole 1 MG TABLET PO SCH (07:49)
[2020-08-31] MEDS: Isosorbide MONOnitrate (24 HR) 60 MG TAB.ER.24H PO SCH ×2 (07:49→21:36)
[2020-08-31] MEDS: *HR* Amiodarone 200 MG TABLET PO SCH (07:49)
[2020-08-31] MEDS: Cyanocobalamin (B-12) 1,000 MCG TABLET PO SCH (07:49)
[2020-08-31] MEDS: Cefdinir 300 MG CAPSULE PO SCH (07:49)
[2020-08-31] MEDS: Lactulose Oral Soln 20 GM/30 ML UDC PO SCH (07:50)
[2020-08-31] MEDS: Furosemide 40 MG TABLET PO SCH (07:50)
[2020-08-31 09:03] LABS: Basophils % 0.5 %; Eosinophils # 0.4 K/mcL (0.0-0.6); Eosinophils % 4.4 %; Hematocrit 43.6 % (35.3-44.9); Hemoglobin 14.2 g/dL (11.5-15.4); Immature Granulocytes % 2.1 % (0-4); Lymphocytes # 0.7 K/mcL (0.6-4.6); Lymphocytes % 8.2 %; Mean Corpuscular HGB Conc 32.6 g/dL (31.6-35.5); Mean Corpuscular Hemoglobin 29.8 pg (28.0-33.3); Mean Corpuscular Volume 91.4 fL (83.0-100.0); Mean Platelet Volume 9.8 fL (9.4-12.4); Monocytes # 0.5 K/mcL (0.0-1.3); Monocytes % 5.8 %; Neutrophils # 6.3 K/mcL (1.6-8.9); Platelet Count 135 K/mcL (140-400); Red Blood Count 4.77 M/mcL (3.82-4.97); Red Cell Distribution Width 13.9 % (11.5-14.5)
[2020-08-31 09:21] LABS: Potassium 3.9 mEq/L (3.5-5.1)
[2020-08-31 12:50] LABS: Heparin anti-factor XA UFH 0.2 IU/mL (0.30-0.70); INR 1.3; Prothrombin Time 14.8 Seconds (9.4-12.1)
[2020-08-31] MEDS: Melatonin 3 MG TABLET PO SCH (17:56)
[2020-08-31] MEDS ORDERED: *HR* Warfarin 2 MG TABLET PO ONE (18:00)
[2020-08-31] MEDS: Famotidine 20 MG TABLET PO SCH (21:37)
[2020-08-31] MEDS: Insulin DETEMIR 100 UNIT/ML X5UNITS SQ SCH (21:39)
[2020-09-01 01:56] LABS: White Blood Count 9.5 K/mcL (4.3-11.1)
[2020-09-01 01:57] LABS: Basophils # 0.1 K/mcL (0.0-0.2); Basophils % 0.6 %; Eosinophils # 0.4 K/mcL (0.0-0.6); Eosinophils % 3.7 %; Hematocrit 41.5 % (35.3-44.9); Hemoglobin 13.9 g/dL (11.5-15.4); Immature Granulocytes % 2.2 % (0-4); Lymphocytes # 0.8 K/mcL (0.6-4.6); Lymphocytes % 8.5 %; Mean Corpuscular HGB Conc 33.5 g/dL (31.6-35.5); Mean Corpuscular Volume 89.6 fL (83.0-100.0); Monocytes # 0.6 K/mcL (0.0-1.3); Monocytes % 6.1 %; Neutrophils # 7.5 K/mcL (1.6-8.9); Platelet Count 138 K/mcL (140-400); Red Blood Count 4.63 M/mcL (3.82-4.97); Red Cell Distribution Width 13.7 % (11.5-14.5); Segmented Neutrophils % 78.9 %
[2020-09-01 02:00] LABS: Heparin anti-factor XA UFH 0.5 IU/mL (0.30-0.70); INR 1.4; Prothrombin Time 15.5 Seconds (9.4-12.1)
[2020-09-01 02:19] LABS: Calcium 10.3 mg/dL (8.6-10.3); Potassium 3.8 mEq/L (3.5-5.1)
[2020-09-01] MEDS: Insulin LISPRO 300 UNITS/3 ML VIAL SQ SCH ×2 (08:41→11:41)
[2020-09-01] MEDS: *HR* Amiodarone 200 MG TABLET PO SCH (08:42)
[2020-09-01] MEDS: Furosemide 40 MG TABLET PO SCH (08:42)
[2020-09-01] MEDS: Lactulose Oral Soln 20 GM/30 ML UDC PO SCH (08:42)
[2020-09-01] MEDS: Cefdinir 300 MG CAPSULE PO SCH (08:43)
[2020-09-01] MEDS: Spironolactone 25 MG TABLET PO SCH (08:43)
[2020-09-01] MEDS: Isosorbide MONOnitrate (24 HR) 60 MG TAB.ER.24H PO SCH (08:43)
[2020-09-01] MEDS: Anastrozole 1 MG TABLET PO SCH (08:43)
[2020-09-01] MEDS: Cyanocobalamin (B-12) 1,000 MCG TABLET PO SCH (08:43)
[2020-09-01] MEDS: Heparin 25,000UNIT/250ML 1/2NS 25,000 UNIT/250 ML IV.SOLN IVC SCH (08:51)
[2020-09-01 10:29] VITALS: BP 108/62
[2020-09-01] MEDS ORDERED: *HR* Enoxaparin 60 MG/0.6 ML SYRINGE SQ ONE (11:00)
[2020-09-01] MEDS ORDERED: *HR* Warfarin 1 MG TABLET PO ONE (18:00)
== END 2020-09-01 12:45 | disposition home or self-care (01) | DRG 280 ==
LOC: EMEROOARM 11:44 → 2ANU 11:44 → SUATTDRO 15:26 → 2ANU 17:41 → SUATTDRO 08-26 15:31
PROVIDERS: ADMIT Internal Medicine; ATTEND General Practice

== ENCOUNTER 2022-01-01 10:31 | Inpatient (IN) ==
[2022-01-01 11:11] LABS: Basophils % 0.4 %; Eosinophils # 0.3 K/mcL (0.0-0.6); Hemoglobin 13.4 g/dL (11.5-15.4); Immature Granulocytes % 0.5 % (0-4); Lymphocytes # 1.4 K/mcL (0.6-4.6); Lymphocytes % 15.3 %; Mean Corpuscular HGB Conc 32.7 g/dL (31.6-35.5); Mean Corpuscular Hemoglobin 29.3 pg (28.0-33.3); Mean Corpuscular Volume 89.7 fL (83.0-100.0); Mean Platelet Volume 9.9 fL (9.4-12.4); Monocytes # 0.7 K/mcL (0.0-1.3); Monocytes % 7.3 %; Neutrophils # 6.7 K/mcL (1.6-8.9); Platelet Count 123 K/mcL (140-400); Red Blood Count 4.57 M/mcL (3.82-4.97); Red Cell Distribution Width 13.4 % (11.5-14.5); Segmented Neutrophils % 73.5 %; White Blood Count 9.1 K/mcL (4.3-11.1)
[2022-01-01 11:24] LABS: INR 2.9; Prothrombin Time 31.9 Seconds (9.4-12.1)
[2022-01-01 11:27] LABS: Activated Partial Thrombo Time 37.7 Seconds (26.0-36.0)
[2022-01-01] MEDS ORDERED: Furosemide 40 MG/4 ML VIAL IVP ONE (11:46)
[2022-01-01 11:59] LABS: Calcium 10.9 mg/dL (8.6-10.3); Magnesium 2.4 mg/dL (1.6-2.6); Potassium 3.7 mEq/L (3.5-5.1); Troponin I 0.06 ng/mL (< 0.04)
[2022-01-01] MEDS ORDERED: Dextrose 4 GM Chewable Tablets PO PRN ×2 (16:16)
[2022-01-01] MEDS ORDERED: *HR* Dextrose 50 % in Water (Syg) 50 ML SYRINGE IVP PRN (16:16)
[2022-01-01] MEDS ORDERED: D5% in Water 1,000 ML IVC PRN (16:16)
[2022-01-01] MEDS ORDERED: Ondansetron 4 MG/2 ML VIAL IVP PRN (16:47)
[2022-01-01] MEDS ORDERED: Naloxone 0.4 MG/ML INJ IVP PRN (16:47)
[2022-01-01] MEDS: Insulin LISPRO 300 UNITS/3 ML VIAL SUBQ SCH ×2 (17:22→21:38)
[2022-01-01] MEDS: Furosemide 20 MG TABLET PO SCH (17:27)
[2022-01-01] MEDS: Isosorbide MONOnitrate (24 HR) 60 MG TAB.ER.24H PO SCH (17:27)
[2022-01-01] MEDS ORDERED: Warfarin perPT PO PRN (18:00)
[2022-01-01] MEDS: traZODone 50 MG TABLET PO SCH (21:44)
[2022-01-01] MEDS: Famotidine 20 MG TABLET PO SCH (21:45)
[2022-01-01] MEDS: Melatonin 3 MG TABLET PO SCH (21:45)
[2022-01-02 02:15] LABS: Basophils % 0.2 %; Eosinophils # 0.2 K/mcL (0.0-0.6); Eosinophils % 1.7 %; Hematocrit 43.2 % (35.3-44.9); Hemoglobin 14.7 g/dL (11.5-15.4); Immature Granulocytes % 0.4 % (0-4); Lymphocytes # 1.5 K/mcL (0.6-4.6); Lymphocytes % 11.1 %; Mean Corpuscular Hemoglobin 29.6 pg (28.0-33.3); Mean Corpuscular Volume 86.9 fL (83.0-100.0); Mean Platelet Volume 10.3 fL (9.4-12.4); Monocytes % 7.5 %; Neutrophils # 10.8 K/mcL (1.6-8.9); Platelet Count 144 K/mcL (140-400); Red Blood Count 4.97 M/mcL (3.82-4.97); Red Cell Distribution Width 13.4 % (11.5-14.5); Segmented Neutrophils % 79.1 %
[2022-01-02 02:17] LABS: White Blood Count 13.7 K/mcL (4.3-11.1)
[2022-01-02 02:23] LABS: INR 2.2; Prothrombin Time 24.7 Seconds (9.4-12.1)
[2022-01-02 02:37] LABS: Calcium 11.4 mg/dL (8.6-10.3); Magnesium 2.3 mg/dL (1.6-2.6); Potassium 3.6 mEq/L (3.5-5.1)
[2022-01-02] MEDS: Insulin LISPRO 300 UNITS/3 ML VIAL SUBQ SCH ×4 (07:30→20:34)
[2022-01-02] MEDS: Furosemide 20 MG TABLET PO SCH ×2 (08:37→17:45)
[2022-01-02] MEDS: Spironolactone 25 MG TABLET PO SCH (08:37)
[2022-01-02] MEDS: Aspirin Enteric Coated 81 MG Tablet PO SCH (08:37)
[2022-01-02] MEDS: DilTIAZem CD (24hr) 120 MG CAP.ER.24H PO SCH (08:37)
[2022-01-02] MEDS: Cyanocobalamin (B-12) 1,000 MCG TABLET PO SCH (08:37)
[2022-01-02] MEDS: Isosorbide MONOnitrate (24 HR) 60 MG TAB.ER.24H PO SCH ×2 (08:37→17:45)
[2022-01-02] MEDS ORDERED: Perflutren Lipid Microsphere 1.3 ML in 0.9 % Sodium Chloride 8.7 ML IVP PRN (08:51)
[2022-01-02] MEDS ORDERED: metOLazone 2.5 MG TABLET PO PRN (11:18)
[2022-01-02] MEDS ORDERED: *HR* Warfarin 2 MG TABLET PO ONE (18:00)
[2022-01-02] MEDS: Famotidine 20 MG TABLET PO SCH (20:32)
[2022-01-02] MEDS: Melatonin 3 MG TABLET PO SCH (20:32)
[2022-01-02] MEDS: Sucralfate 1 GM TABLET PO SCH (20:33)
[2022-01-02] MEDS: traZODone 50 MG TABLET PO SCH (20:33)
[2022-01-03 05:38] LABS: Basophils % 0.4 %; Eosinophils # 0.3 K/mcL (0.0-0.6); Eosinophils % 3.7 %; Hematocrit 40.8 % (35.3-44.9); Hemoglobin 13.6 g/dL (11.5-15.4); Immature Granulocytes % 0.4 % (0-4); Lymphocytes # 1.3 K/mcL (0.6-4.6); Lymphocytes % 18.8 %; Mean Corpuscular HGB Conc 33.3 g/dL (31.6-35.5); Mean Corpuscular Hemoglobin 28.9 pg (28.0-33.3); Mean Corpuscular Volume 86.8 fL (83.0-100.0); Mean Platelet Volume 10.4 fL (9.4-12.4); Monocytes # 0.5 K/mcL (0.0-1.3); Monocytes % 7.5 %; Neutrophils # 4.9 K/mcL (1.6-8.9); Platelet Count 122 K/mcL (140-400); Red Cell Distribution Width 13.3 % (11.5-14.5); Segmented Neutrophils % 69.2 %
[2022-01-03 05:43] LABS: INR 1.5; Prothrombin Time 17.1 Seconds (9.4-12.1)
[2022-01-03 05:47] LABS: Calcium 11.4 mg/dL (8.6-10.3); Potassium 3.5 mEq/L (3.5-5.1)
[2022-01-03] MEDS: Cyanocobalamin (B-12) 1,000 MCG TABLET PO SCH (08:28)
[2022-01-03] MEDS: DilTIAZem CD (24hr) 120 MG CAP.ER.24H PO SCH (08:28)
[2022-01-03] MEDS: Aspirin Enteric Coated 81 MG Tablet PO SCH (08:28)
[2022-01-03] MEDS: Sucralfate 1 GM TABLET PO SCH ×2 (08:29→21:06)
[2022-01-03] MEDS: Spironolactone 25 MG TABLET PO SCH (08:29)
[2022-01-03] MEDS: Lactulose Oral Soln 20 GM/30 ML UDC PO SCH (08:29)
[2022-01-03] MEDS: Isosorbide MONOnitrate (24 HR) 60 MG TAB.ER.24H PO SCH ×2 (08:29→16:47)
[2022-01-03] MEDS: Furosemide 20 MG TABLET PO SCH ×2 (08:29→16:47)
[2022-01-03] MEDS: Insulin LISPRO 300 UNITS/3 ML VIAL SUBQ SCH ×4 (08:36→21:03)
[2022-01-03] MEDS ORDERED: [UNRECOGNIZED DRUG - OTHER] PO SCH (09:00)
[2022-01-03] MEDS ORDERED: *HR* Warfarin 3 MG TABLET PO ONE (18:00)
[2022-01-03 21:02] LABS: Bilirubin,Urine Negative (Negative); Blood,Urine Trace (Negative); Clarity,Urine Clear (Clear); Color,Urine Colorless (Yellow); Glucose,Urine (UA) Normal (Normal); Hyaline Casts,Urine Few per lpf (None Seen); Ketones,Urine Negative (Negative); Leukocyte Esterase,Urine Negative (Negative); Mucus,Urine Few per lpf (None-Few); Nitrite,Urine Negative (Negative); Protein,Urine Negative (Neg-Trace); Specific Gravity,Urine 1.014 (1.010-1.025); Squamous Epithelial Cell,Urine Few per hpf (None-Few); Urobilinogen,Urine Normal (Normal)
[2022-01-03] MEDS: Famotidine 20 MG TABLET PO SCH (21:06)
[2022-01-03] MEDS: traZODone 50 MG TABLET PO SCH (21:06)
[2022-01-03] MEDS: Melatonin 3 MG TABLET PO SCH (21:07)
[2022-01-04 05:50] LABS: Basophils % 0.6 %; Eosinophils # 0.2 K/mcL (0.0-0.6); Eosinophils % 3.7 %; Hematocrit 38.3 % (35.3-44.9); Immature Granulocytes % 0.6 % (0-4); Lymphocytes # 1.1 K/mcL (0.6-4.6); Lymphocytes % 17.4 %; Mean Corpuscular HGB Conc 33.9 g/dL (31.6-35.5); Mean Corpuscular Hemoglobin 29.4 pg (28.0-33.3); Mean Corpuscular Volume 86.7 fL (83.0-100.0); Monocytes # 0.4 K/mcL (0.0-1.3); Monocytes % 6.3 %; Neutrophils # 4.4 K/mcL (1.6-8.9); Platelet Count 128 K/mcL (140-400); Red Blood Count 4.42 M/mcL (3.82-4.97); Red Cell Distribution Width 13.2 % (11.5-14.5); Segmented Neutrophils % 71.4 %; White Blood Count 6.2 K/mcL (4.3-11.1)
[2022-01-04 06:01] LABS: INR 1.6; Prothrombin Time 18.1 Seconds (9.4-12.1)
[2022-01-04 06:12] LABS: Calcium 11.6 mg/dL (8.6-10.3); Magnesium 2.1 mg/dL (1.6-2.6); Potassium 3.3 mEq/L (3.5-5.1)
[2022-01-04] MEDS: Insulin LISPRO 300 UNITS/3 ML VIAL SUBQ SCH ×4 (08:10→20:19)
[2022-01-04] MEDS: Lactulose Oral Soln 20 GM/30 ML UDC PO SCH (08:23)
[2022-01-04] MEDS: Spironolactone 25 MG TABLET PO SCH (08:24)
[2022-01-04] MEDS: Aspirin Enteric Coated 81 MG Tablet PO SCH (08:24)
[2022-01-04] MEDS: Sucralfate 1 GM TABLET PO SCH ×2 (08:24→20:20)
[2022-01-04] MEDS: Furosemide 20 MG TABLET PO SCH ×2 (08:24→16:39)
[2022-01-04] MEDS: Cyanocobalamin (B-12) 1,000 MCG TABLET PO SCH (08:24)
[2022-01-04] MEDS: Isosorbide MONOnitrate (24 HR) 60 MG TAB.ER.24H PO SCH ×2 (08:24→16:39)
[2022-01-04] MEDS: DilTIAZem CD (24hr) 240 MG CAP.ER.24H PO SCH (08:24)
[2022-01-04] MEDS ORDERED: *HR* Warfarin 3 MG TABLET PO ONE (18:00)
[2022-01-04] MEDS: traZODone 50 MG TABLET PO SCH (20:20)
[2022-01-04] MEDS: Famotidine 20 MG TABLET PO SCH (20:20)
[2022-01-04] MEDS: Melatonin 3 MG TABLET PO SCH (20:20)
[2022-01-05 05:46] LABS: Basophils % 0.5 %; Eosinophils # 0.2 K/mcL (0.0-0.6); Eosinophils % 3.7 %; Hematocrit 38.8 % (35.3-44.9); Immature Granulocytes % 0.3 % (0-4); Lymphocytes # 1.1 K/mcL (0.6-4.6); Lymphocytes % 17.4 %; Mean Corpuscular HGB Conc 33.5 g/dL (31.6-35.5); Mean Corpuscular Hemoglobin 29.1 pg (28.0-33.3); Mean Platelet Volume 10.2 fL (9.4-12.4); Monocytes # 0.5 K/mcL (0.0-1.3); Monocytes % 7.3 %; Neutrophils # 4.5 K/mcL (1.6-8.9); Platelet Count 144 K/mcL (140-400); Red Blood Count 4.46 M/mcL (3.82-4.97); Red Cell Distribution Width 13.2 % (11.5-14.5); Segmented Neutrophils % 70.8 %; White Blood Count 6.4 K/mcL (4.3-11.1)
[2022-01-05 05:55] LABS: Prothrombin Time 22.5 Seconds (9.4-12.1)
[2022-01-05 06:13] LABS: Calcium 11.7 mg/dL (8.6-10.3); Potassium 3.4 mEq/L (3.5-5.1)
[2022-01-05 06:40] VITALS: BP 119/71; PULSE 80; TEMP 97.9; O2SAT 98
[2022-01-05] MEDS: Insulin LISPRO 300 UNITS/3 ML VIAL SUBQ SCH (08:56)
[2022-01-05] MEDS: Lactulose Oral Soln 20 GM/30 ML UDC PO SCH (08:56)
[2022-01-05] MEDS: Aspirin Enteric Coated 81 MG Tablet PO SCH (08:57)
[2022-01-05] MEDS: DilTIAZem CD (24hr) 240 MG CAP.ER.24H PO SCH (08:57)
[2022-01-05] MEDS: Sucralfate 1 GM TABLET PO SCH (08:57)
[2022-01-05] MEDS: Furosemide 20 MG TABLET PO SCH (08:57)
[2022-01-05] MEDS: Spironolactone 25 MG TABLET PO SCH (08:57)
[2022-01-05] MEDS: Cyanocobalamin (B-12) 1,000 MCG TABLET PO SCH (08:57)
[2022-01-05] MEDS: Isosorbide MONOnitrate (24 HR) 60 MG TAB.ER.24H PO SCH (08:57)
== END 2022-01-05 10:14 | disposition home or self-care (01) | DRG 281 ==
LOC: EMEROOARM 10:31 → 3BNU 10:31 → SUATTDRO 16:22 → 3BNU 17:15
PROVIDERS: ADMIT Internal Medicine; ATTEND Family Medicine

== ENCOUNTER 2022-02-01 08:13 | Inpatient (IN) ==
[2022-02-01] MEDS ORDERED: Nitroglycerin 0.4 MG TAB.SUBL SL ONE (08:46)
[2022-02-01] MEDS ORDERED: Aspirin 325 MG TABLET PO ONE (08:46)
[2022-02-01] MEDS ORDERED: Ondansetron 4 MG/2 ML VIAL IVP ONE ×2 (08:49→10:10)
[2022-02-01] MEDS ORDERED: Ondansetron 4 MG/2 ML VIAL ONE (08:51)
[2022-02-01] MEDS ORDERED: Morphine Sulfate 2 MG/ML SYRINGE IVP ONE ×2 (08:55→10:10)
[2022-02-01 09:06] LABS: Basophils # 0.1 K/mcL (0.0-0.2); Basophils % 0.4 %; Eosinophils # 0.2 K/mcL (0.0-0.6); Eosinophils % 1.4 %; Hematocrit 48.8 % (35.3-44.9); Hemoglobin 16.9 g/dL (11.5-15.4); Immature Granulocytes % 0.6 % (0-4); Lymphocytes # 1.6 K/mcL (0.6-4.6); Lymphocytes % 14.5 %; Mean Corpuscular HGB Conc 34.6 g/dL (31.6-35.5); Mean Corpuscular Hemoglobin 29.1 pg (28.0-33.3); Mean Corpuscular Volume 84.1 fL (83.0-100.0); Mean Platelet Volume 10.1 fL (9.4-12.4); Monocytes # 0.8 K/mcL (0.0-1.3); Monocytes % 7.3 %; Neutrophils # 8.4 K/mcL (1.6-8.9); Platelet Count 186 K/mcL (140-400); Segmented Neutrophils % 75.8 %; White Blood Count 11.1 K/mcL (4.3-11.1)
[2022-02-01 09:14] LABS: INR 3.7; Prothrombin Time 41.3 Seconds (9.4-12.1)
[2022-02-01] MEDS ORDERED: DilTIAZem 50 MG/50 ML IV.SOLN IVC SCH (09:15)
[2022-02-01] MEDS ORDERED: Perflutren Lipid Microsphere 1.3 ML in 0.9 % Sodium Chloride 8.7 ML IVP PRN (09:37)
[2022-02-01 09:43] LABS: Albumin 4.7 g/dL (3.5-5.7); Albumin/Globulin Ratio 1.6 (1.1-2.2); Bilirubin,Total 0.7 mg/dL (0.3-1.0); Calcium 14.4 mg/dL (8.6-10.3); Globulin 2.9 g/dL (2.4-3.5); Potassium 3.7 mEq/L (3.5-5.1); Total Protein 7.6 g/dL (6.4-8.9)
[2022-02-01] MEDS ORDERED: 0.9 % Sodium Chloride 1,000 ML IVC ONE ×2 (10:00→11:38)
[2022-02-01] MEDS ORDERED: Nitroglycerin 0.4 MG TAB.SUBL SL SCH (10:15)
[2022-02-01 10:38] LABS: Troponin I 0.15 ng/mL (< 0.04)
[2022-02-01] MEDS ORDERED: Naloxone 0.4 MG/ML INJ IVP PRN (11:01)
[2022-02-01] MEDS ORDERED: Acetaminophen 325 MG TABLET PO PRN (11:01)
[2022-02-01] MEDS ORDERED: Zoledronic Acid (Zometa) 4 MG in 0.9 % Sodium Chloride 100 ML IVPB ONE (11:36)
[2022-02-01] MEDS ORDERED: *HR* Heparin 5,000 UNIT/ML VIAL IVP PRN ×2 (11:55)
[2022-02-01] MEDS ORDERED: *HR* Heparin 5,000 UNIT/ML VIAL IVP ONE (11:55)
[2022-02-01] MEDS ORDERED: D5% in Water 1,000 ML IVC PRN (13:51)
[2022-02-01] MEDS ORDERED: *HR* Dextrose 50 % in Water (Syg) 50 ML SYRINGE IVP PRN (13:51)
[2022-02-01] MEDS ORDERED: Dextrose 4 GM Chewable Tablets PO PRN ×2 (13:51)
[2022-02-01] MEDS: 0.9 % Sodium Chloride 1,000 ML IVC SCH (15:14)
[2022-02-01] MEDS: Metoprolol XL (24 HR) Succ 25 MG TAB.ER.24H PO SCH (16:08)
[2022-02-01 16:10] LABS: Heparin anti-factor XA UFH < 0.04 IU/mL (0.30-0.70)
[2022-02-01 16:26] LABS: Troponin I 0.67 ng/mL (< 0.04)
[2022-02-01] MEDS: Insulin LISPRO 300 UNITS/3 ML VIAL SUBQ SCH ×2 (17:01→19:19)
[2022-02-01 17:40] LABS: Calcium 12.3 mg/dL (8.6-10.3); Potassium 3.8 mEq/L (3.5-5.1)
[2022-02-01] MEDS: *HR* Digoxin 0.5 MG/2 ML AMPUL IVP SCH (17:58)
[2022-02-01 19:57] LABS: INR 3.3; Prothrombin Time 36.7 Seconds (9.4-12.1)
[2022-02-01 20:00] LABS: Activated Partial Thrombo Time 43.2 Seconds (26.0-36.0)
[2022-02-01 21:06] LABS: Calcium 11.6 mg/dL (8.6-10.3)
[2022-02-01 21:12] LABS: Troponin I 1.14 ng/mL (< 0.04)
[2022-02-02] MEDS: *HR* Digoxin 0.5 MG/2 ML AMPUL IVP SCH ×2 (00:06→05:48)
[2022-02-02] MEDS: 0.9 % Sodium Chloride 1,000 ML IVC SCH (00:07)
[2022-02-02 00:42] LABS: Bilirubin,Urine Negative (Negative); Blood,Urine Small (Negative); Clarity,Urine Clear (Clear); Color,Urine Colorless (Yellow); Glucose,Urine (UA) Normal (Normal); Ketones,Urine Negative (Negative); Leukocyte Esterase,Urine Negative (Negative); Nitrite,Urine Negative (Negative); Protein,Urine Negative (Neg-Trace); Specific Gravity,Urine 1.009 (1.010-1.025); Urobilinogen,Urine Normal (Normal)
[2022-02-02 03:12] LABS: Mean Corpuscular Volume 86.5 fL (83.0-100.0); Mean Platelet Volume 9.9 fL (9.4-12.4); Segmented Neutrophils % 78.3 %
[2022-02-02 03:14] LABS: Basophils % 0.2 %; Eosinophils # 0.2 K/mcL (0.0-0.6); Eosinophils % 2.2 %; Hematocrit 41.7 % (35.3-44.9); Hemoglobin 14.1 g/dL (11.5-15.4); Immature Granulocytes % 0.6 % (0-4); Immature Platelets 2.4 % (1.1-6.1); Lymphocytes # 1.1 K/mcL (0.6-4.6); Lymphocytes % 12.1 %; Mean Corpuscular HGB Conc 33.8 g/dL (31.6-35.5); Mean Corpuscular Hemoglobin 29.3 pg (28.0-33.3); Monocytes # 0.6 K/mcL (0.0-1.3); Monocytes % 6.6 %; Neutrophils # 6.8 K/mcL (1.6-8.9); Platelet Count 137 K/mcL (140-400); Red Blood Count 4.82 M/mcL (3.82-4.97); Red Cell Distribution Width 12.9 % (11.5-14.5); White Blood Count 8.7 K/mcL (4.3-11.1)
[2022-02-02 03:20] LABS: INR 3.3; Prothrombin Time 36.5 Seconds (9.4-12.1)
[2022-02-02 03:32] LABS: Calcium 11.4 mg/dL (8.6-10.3); Magnesium 2.5 mg/dL (1.6-2.6); Potassium 3.8 mEq/L (3.5-5.1)
[2022-02-02] MEDS: Spironolactone 25 MG TABLET PO SCH (08:17)
[2022-02-02] MEDS: Metoprolol XL (24 HR) Succ 25 MG TAB.ER.24H PO SCH (08:17)
[2022-02-02] MEDS: Isosorbide MONOnitrate (24 HR) 60 MG TAB.ER.24H PO SCH ×2 (08:17→19:36)
[2022-02-02] MEDS: *HR* Digoxin 0.125 MG TABLET PO SCH (08:17)
[2022-02-02] MEDS: Pantoprazole 40 MG VIAL IVP SCH (08:17)
[2022-02-02] MEDS: Insulin LISPRO 300 UNITS/3 ML VIAL SUBQ SCH ×4 (08:18→19:16)
[2022-02-02] MEDS ORDERED: Perflutren Lipid Microsphere 1.3 ML in 0.9 % Sodium Chloride 8.7 ML IVP PRN (08:55)
[2022-02-02] MEDS: Ondansetron 4 MG/2 ML VIAL IVP PRN (10:31)
[2022-02-02 11:08] LABS: Procalcitonin 0.08 ng/mL (0.00-0.15)
[2022-02-02] MEDS ORDERED: Morphine Sulfate 2 MG/ML SYRINGE IVP ONE (12:32)
[2022-02-02] MEDS: Furosemide 20 MG TABLET PO SCH (19:36)
[2022-02-03 04:39] LABS: INR 2.9; Prothrombin Time 32.4 Seconds (9.4-12.1)
[2022-02-03] MEDS ORDERED: metOLazone 2.5 MG TABLET PO PRN (07:49)
[2022-02-03] MEDS: Insulin LISPRO 300 UNITS/3 ML VIAL SUBQ SCH ×4 (08:29→19:48)
[2022-02-03] MEDS: Sucralfate 1 GM TABLET PO SCH ×2 (08:29→19:49)
[2022-02-03] MEDS: Potassium Chloride Elixir 20 MEQ/15 ML UDC PO SCH ×2 (08:29→08:38)
[2022-02-03] MEDS: Spironolactone 25 MG TABLET PO SCH (08:34)
[2022-02-03] MEDS: Furosemide 20 MG TABLET PO SCH ×2 (08:34→19:48)
[2022-02-03] MEDS: *HR* Digoxin 0.125 MG TABLET PO SCH (08:34)
[2022-02-03] MEDS: Metoprolol XL (24 HR) Succ 25 MG TAB.ER.24H PO SCH (08:34)
[2022-02-03] MEDS: Isosorbide MONOnitrate (24 HR) 60 MG TAB.ER.24H PO SCH ×2 (08:34→19:48)
[2022-02-03] MEDS: Aspirin Enteric Coated 81 MG Tablet PO SCH (08:34)
[2022-02-03] MEDS: Pantoprazole 40 MG VIAL IVP SCH (08:38)
[2022-02-03 08:40] LABS: Basophils % 0.4 %; Hemoglobin 13.2 g/dL (11.5-15.4); Mean Platelet Volume 9.6 fL (9.4-12.4)
[2022-02-03 08:42] LABS: Eosinophils # 0.2 K/mcL (0.0-0.6); Eosinophils % 2.7 %; Hematocrit 39.5 % (35.3-44.9); Immature Granulocytes % 0.7 % (0-4); Immature Platelets 2.3 % (1.1-6.1); Lymphocytes # 0.9 K/mcL (0.6-4.6); Lymphocytes % 11.1 %; Mean Corpuscular HGB Conc 33.4 g/dL (31.6-35.5); Mean Corpuscular Hemoglobin 29.4 pg (28.0-33.3); Monocytes # 0.5 K/mcL (0.0-1.3); Monocytes % 6.8 %; Platelet Count 132 K/mcL (140-400); Red Blood Count 4.49 M/mcL (3.82-4.97); Red Cell Distribution Width 12.9 % (11.5-14.5); Segmented Neutrophils % 78.3 %; White Blood Count 7.7 K/mcL (4.3-11.1)
[2022-02-03] MEDS: Lactulose Oral Soln 20 GM/30 ML UDC PO SCH (08:48)
[2022-02-03 08:59] LABS: Calcium 10.6 mg/dL (8.6-10.3); Potassium 3.4 mEq/L (3.5-5.1)
[2022-02-03] MEDS: Insulin DETEMIR 100 UNIT/ML X5UNITS SUBQ SCH (19:48)
[2022-02-03] MEDS: MELATONIN 10 MG PO SCH (20:09)
[2022-02-03] MEDS: Ondansetron 4 MG/2 ML VIAL IVP PRN (22:50)
[2022-02-03] MEDS: Nitroglycerin 0.4 MG TAB.SUBL SL PRN (22:58)
[2022-02-03] MEDS: traZODone 50 MG TABLET PO PRN (23:05)
[2022-02-04] MEDS: Nitroglycerin 0.4 MG TAB.SUBL SL PRN (00:28)
[2022-02-04] MEDS: Morphine Sulfate 2 MG/ML SYRINGE IVP PRN (00:40)
[2022-02-04 05:34] LABS: Hemoglobin 12.4 g/dL (11.5-15.4); Red Blood Count 4.28 M/mcL (3.82-4.97)
[2022-02-04 05:37] LABS: Basophils % 0.6 %; Eosinophils # 0.2 K/mcL (0.0-0.6); Eosinophils % 2.6 %; Hematocrit 36.1 % (35.3-44.9); Immature Granulocytes % 0.9 % (0-4); Immature Platelets 2.6 % (1.1-6.1); Lymphocytes # 1.1 K/mcL (0.6-4.6); Lymphocytes % 15.8 %; Mean Corpuscular HGB Conc 34.3 g/dL (31.6-35.5); Mean Corpuscular Volume 84.3 fL (83.0-100.0); Mean Platelet Volume 9.8 fL (9.4-12.4); Monocytes # 0.6 K/mcL (0.0-1.3); Monocytes % 8.1 %; Platelet Count 126 K/mcL (140-400); Red Cell Distribution Width 12.9 % (11.5-14.5); White Blood Count 6.9 K/mcL (4.3-11.1)
[2022-02-04 05:45] LABS: Calcium 11.3 mg/dL (8.6-10.3); Potassium 3.1 mEq/L (3.5-5.1)
[2022-02-04] MEDS: Insulin LISPRO 300 UNITS/3 ML VIAL SUBQ SCH ×4 (08:43→19:34)
[2022-02-04] MEDS: Lactulose Oral Soln 20 GM/30 ML UDC PO SCH (08:44)
[2022-02-04] MEDS: *HR* Digoxin 0.125 MG TABLET PO SCH (08:45)
[2022-02-04] MEDS: Metoprolol XL (24 HR) Succ 25 MG TAB.ER.24H PO SCH (08:45)
[2022-02-04] MEDS: Sucralfate 1 GM TABLET PO SCH ×2 (08:45→19:41)
[2022-02-04] MEDS: Isosorbide MONOnitrate (24 HR) 60 MG TAB.ER.24H PO SCH ×2 (08:45→19:41)
[2022-02-04] MEDS: Potassium Chloride Elixir 20 MEQ/15 ML UDC PO SCH (08:45)
[2022-02-04] MEDS: Furosemide 20 MG TABLET PO SCH ×2 (08:45→19:41)
[2022-02-04] MEDS: Spironolactone 25 MG TABLET PO SCH (08:45)
[2022-02-04] MEDS: Aspirin Enteric Coated 81 MG Tablet PO SCH (08:46)
[2022-02-04] MEDS: Pantoprazole 40 MG VIAL IVP SCH (08:52)
[2022-02-04 09:26] LABS: INR 1.8; Prothrombin Time 19.8 Seconds (9.4-12.1)
[2022-02-04] MEDS: Heparin 25,000UNIT/250ML 1/2NS 25,000 UNIT/250 ML IV.SOLN IVC SCH (12:18)
[2022-02-04] MEDS: Insulin DETEMIR 100 UNIT/ML X5UNITS SUBQ SCH (19:34)
[2022-02-04] MEDS: traZODone 50 MG TABLET PO PRN (21:17)
[2022-02-04] MEDS: MELATONIN 10 MG PO SCH (21:18)
[2022-02-05 01:17] LABS: Basophils % 0.3 %; Eosinophils # 0.2 K/mcL (0.0-0.6); Eosinophils % 3.6 %; Hematocrit 35.8 % (35.3-44.9); Hemoglobin 12.3 g/dL (11.5-15.4); Immature Granulocytes % 1.2 % (0-4); Immature Platelets 2.1 % (1.1-6.1); Lymphocytes % 17.7 %; Mean Corpuscular HGB Conc 34.4 g/dL (31.6-35.5); Mean Corpuscular Hemoglobin 29.3 pg (28.0-33.3); Mean Corpuscular Volume 85.2 fL (83.0-100.0); Mean Platelet Volume 9.6 fL (9.4-12.4); Monocytes # 0.4 K/mcL (0.0-1.3); Monocytes % 6.8 %; Neutrophils # 4.1 K/mcL (1.6-8.9); Platelet Count 126 K/mcL (140-400); Red Cell Distribution Width 13.1 % (11.5-14.5); Segmented Neutrophils % 70.4 %; White Blood Count 5.9 K/mcL (4.3-11.1)
[2022-02-05 01:24] LABS: INR 1.7; Prothrombin Time 18.4 Seconds (9.4-12.1)
[2022-02-05 01:41] LABS: Calcium 11.1 mg/dL (8.6-10.3); Potassium 3.9 mEq/L (3.5-5.1)
[2022-02-05] MEDS: Ondansetron 4 MG/2 ML VIAL IVP PRN ×2 (03:35→09:16)
[2022-02-05] MEDS: Morphine Sulfate 2 MG/ML SYRINGE IVP PRN ×3 (03:35→16:17)
[2022-02-05] MEDS: Nitroglycerin 0.4 MG TAB.SUBL SL PRN (03:38)
[2022-02-05] MEDS ORDERED: Heparin 1,000 UNITS/500 mL 500 ML ONE ×2 (07:11→10:35)
[2022-02-05] MEDS ORDERED: 0.9 % Sodium Chloride 2,000 ML ONE (07:11)
[2022-02-05] MEDS ORDERED: *HR* Heparin 10,000 UNIT/10 ML VIAL ONE ×2 (07:11→10:35)
[2022-02-05] MEDS ORDERED: ISOVUE-370 200 ML INFUS..BTL ONE ×2 (07:11→10:35)
[2022-02-05] MEDS ORDERED: Nitroglycerin 1,000 MCG/5 ML VIAL IV ONE ×2 (07:12→10:35)
[2022-02-05] MEDS: Insulin LISPRO 300 UNITS/3 ML VIAL SUBQ SCH ×4 (07:41→20:36)
[2022-02-05] MEDS: Metoprolol XL (24 HR) Succ 25 MG TAB.ER.24H PO SCH (07:42)
[2022-02-05] MEDS: Isosorbide MONOnitrate (24 HR) 60 MG TAB.ER.24H PO SCH ×2 (07:42→20:48)
[2022-02-05] MEDS: Furosemide 20 MG TABLET PO SCH ×2 (07:42→20:48)
[2022-02-05] MEDS: Sucralfate 1 GM TABLET PO SCH ×2 (07:42→20:48)
[2022-02-05] MEDS: Spironolactone 25 MG TABLET PO SCH (07:42)
[2022-02-05] MEDS: Aspirin Enteric Coated 81 MG Tablet PO SCH (07:43)
[2022-02-05] MEDS: *HR* Digoxin 0.125 MG TABLET PO SCH (07:43)
[2022-02-05] MEDS: Potassium Chloride Elixir 20 MEQ/15 ML UDC PO SCH (07:44)
[2022-02-05] MEDS: Pantoprazole 40 MG VIAL IVP SCH (07:44)
[2022-02-05] MEDS: Lactulose Oral Soln 20 GM/30 ML UDC PO SCH (07:45)
[2022-02-05] MEDS ORDERED: *HR* FentaNYL (PF) 100 MCG/2 ML VIAL ONE ×2 (08:12→10:35)
[2022-02-05] MEDS ORDERED: *HR* Midazolam HCl 2 MG/2 ML VIAL ONE ×2 (08:12→10:35)
[2022-02-05 09:54] LABS: INR 1.6
[2022-02-05] MEDS ORDERED: 0.9 % Sodium Chloride 1,000 ML ONE (10:35)
[2022-02-05] MEDS: Heparin 25,000UNIT/250ML 1/2NS 25,000 UNIT/250 ML IV.SOLN IVC SCH ×3 (12:44→17:33)
[2022-02-05] MEDS ORDERED: Famotidine 20 MG/2 ML VIAL IVP ONE (16:21)
[2022-02-05] MEDS ORDERED: Perflutren Lipid Microsphere 1.3 ML in 0.9 % Sodium Chloride 8.7 ML IVP PRN (16:36)
[2022-02-05] MEDS: *HR* Warfarin 2 MG TABLET PO ONE (17:38)
[2022-02-05] MEDS ORDERED: Warfarin perPT PO PRN (18:00)
[2022-02-05] MEDS: MELATONIN 10 MG PO SCH (20:45)
[2022-02-05] MEDS: Insulin DETEMIR 100 UNIT/ML X5UNITS SUBQ SCH (20:45)
[2022-02-06 03:05] LABS: Basophils % 0.4 %; Eosinophils # 0.2 K/mcL (0.0-0.6); Eosinophils % 1.8 %; Hemoglobin 12.9 g/dL (11.5-15.4); Immature Granulocytes % 0.8 % (0-4); Lymphocytes % 9.6 %; Mean Corpuscular HGB Conc 32.3 g/dL (31.6-35.5); Mean Corpuscular Hemoglobin 28.7 pg (28.0-33.3); Mean Corpuscular Volume 89.1 fL (83.0-100.0); Mean Platelet Volume 9.9 fL (9.4-12.4); Monocytes # 0.7 K/mcL (0.0-1.3); Monocytes % 6.9 %; Neutrophils # 8.4 K/mcL (1.6-8.9); Platelet Count 141 K/mcL (140-400); Red Blood Count 4.49 M/mcL (3.82-4.97); Red Cell Distribution Width 13.2 % (11.5-14.5); Segmented Neutrophils % 80.5 %
[2022-02-06 03:09] LABS: White Blood Count 10.4 K/mcL (4.3-11.1)
[2022-02-06 03:29] LABS: Calcium 10.5 mg/dL (8.6-10.3); Potassium 4.4 mEq/L (3.5-5.1)
[2022-02-06] MEDS: Insulin LISPRO 300 UNITS/3 ML VIAL SUBQ SCH ×4 (07:48→19:38)
[2022-02-06] MEDS: Furosemide 20 MG TABLET PO SCH ×2 (08:20→20:56)
[2022-02-06] MEDS: Sucralfate 1 GM TABLET PO SCH ×2 (08:20→20:57)
[2022-02-06] MEDS: Isosorbide MONOnitrate (24 HR) 60 MG TAB.ER.24H PO SCH ×2 (08:20→20:56)
[2022-02-06] MEDS: Spironolactone 25 MG TABLET PO SCH (08:20)
[2022-02-06] MEDS: *HR* Digoxin 0.125 MG TABLET PO SCH (08:20)
[2022-02-06] MEDS: Metoprolol XL (24 HR) Succ 25 MG TAB.ER.24H PO SCH (08:21)
[2022-02-06] MEDS: Lactulose Oral Soln 20 GM/30 ML UDC PO SCH (08:21)
[2022-02-06] MEDS: Pantoprazole 40 MG VIAL IVP SCH (08:22)
[2022-02-06] MEDS: Potassium Chloride Elixir 20 MEQ/15 ML UDC PO SCH (09:40)
[2022-02-06] MEDS ORDERED: 0.9 % Sodium Chloride 1,000 ML ONE (11:50)
[2022-02-06 12:47] LABS: Hematocrit 36.6 % (35.3-44.9); Hemoglobin 11.8 g/dL (11.5-15.4)
[2022-02-06] MEDS: Colchicine 0.6 MG TABLET PO SCH ×2 (16:12→20:57)
[2022-02-06 17:52] LABS: INR 1.7; Prothrombin Time 18.7 Seconds (9.4-12.1)
[2022-02-06] MEDS ORDERED: *HR* Warfarin 2 MG TABLET PO ONE (18:00)
[2022-02-06] MEDS: MELATONIN 10 MG PO SCH (19:39)
[2022-02-06] MEDS: Insulin DETEMIR 100 UNIT/ML X5UNITS SUBQ SCH (20:57)
[2022-02-06] MEDS: *HR* Warfarin 2 MG TABLET PO ONE (20:57)
[2022-02-07 03:17] LABS: Heparin anti-factor XA UFH < 0.04 IU/mL (0.30-0.70); INR 1.6; Prothrombin Time 17.4 Seconds (9.4-12.1)
[2022-02-07] MEDS: Aspirin 81 MG TAB.CHEW PO SCH (09:09)
[2022-02-07] MEDS: *HR* Digoxin 0.125 MG TABLET PO SCH (09:09)
[2022-02-07] MEDS: Furosemide 20 MG TABLET PO SCH ×2 (09:09→20:44)
[2022-02-07] MEDS: Sucralfate 1 GM TABLET PO SCH ×2 (09:09→20:44)
[2022-02-07] MEDS: Colchicine 0.6 MG TABLET PO SCH ×2 (09:09→20:44)
[2022-02-07] MEDS: Metoprolol XL (24 HR) Succ 25 MG TAB.ER.24H PO SCH (09:09)
[2022-02-07] MEDS: Pantoprazole 40 MG VIAL IVP SCH (09:09)
[2022-02-07] MEDS: Lactulose Oral Soln 20 GM/30 ML UDC PO SCH (09:09)
[2022-02-07] MEDS: Spironolactone 25 MG TABLET PO SCH (09:09)
[2022-02-07] MEDS: Potassium Chloride Elixir 20 MEQ/15 ML UDC PO SCH (09:10)
[2022-02-07] MEDS: Insulin LISPRO 300 UNITS/3 ML VIAL SUBQ SCH ×4 (09:11→20:44)
[2022-02-07] MEDS: Isosorbide MONOnitrate (24 HR) 60 MG TAB.ER.24H PO SCH ×2 (09:11→20:44)
[2022-02-07 09:12] LABS: Basophils % 0.3 %; Eosinophils # 0.2 K/mcL (0.0-0.6); Eosinophils % 1.8 %; Hematocrit 33.5 % (35.3-44.9); Hemoglobin 11.3 g/dL (11.5-15.4); Immature Granulocytes % 0.8 % (0-4); Lymphocytes % 11.3 %; Mean Corpuscular HGB Conc 33.7 g/dL (31.6-35.5); Mean Corpuscular Hemoglobin 29.4 pg (28.0-33.3); Monocytes # 0.6 K/mcL (0.0-1.3); Monocytes % 6.4 %; Neutrophils # 6.9 K/mcL (1.6-8.9); Platelet Count 108 K/mcL (140-400); Red Blood Count 3.85 M/mcL (3.82-4.97); Red Cell Distribution Width 13.2 % (11.5-14.5); Segmented Neutrophils % 79.4 %; White Blood Count 8.7 K/mcL (4.3-11.1)
[2022-02-07 09:26] LABS: BUN/Creatinine Ratio 15 (6-26); Blood Urea Nitrogen 16 mg/dL (8-23); Calcium 9.8 mg/dL (8.6-10.3); Carbon Dioxide 27 mEq/L (23-29); Chloride 105 mEq/L (98-107); Glucose 103 mg/dL (70-105); Osmolality,Calculated 285 (280-300); Potassium 3.8 mEq/L (3.5-5.1); Sodium 137 mEq/L (136-145); eGFR For African Americans > 60 (> 60); eGFR For Non-African Americans 50 (> 60)
[2022-02-07 14:17] LABS: Digoxin 1.7 ng/mL (0.8-2.0)
[2022-02-07] MEDS ORDERED: *HR* Warfarin 2 MG TABLET PO ONE (18:00)
[2022-02-07] MEDS: Insulin DETEMIR 100 UNIT/ML X5UNITS SUBQ SCH (20:43)
[2022-02-07] MEDS: *HR* Warfarin 2 MG TABLET PO ONE (20:43)
[2022-02-07] MEDS: traZODone 50 MG TABLET PO PRN (20:44)
[2022-02-08 01:48] LABS: Basophils % 0.2 %; Eosinophils # 0.2 K/mcL (0.0-0.6); Eosinophils % 2.2 %; Hemoglobin 10.4 g/dL (11.5-15.4); Immature Granulocytes % 0.8 % (0-4); Lymphocytes # 1.2 K/mcL (0.6-4.6); Lymphocytes % 14.8 %; Mean Corpuscular HGB Conc 33.5 g/dL (31.6-35.5); Mean Corpuscular Hemoglobin 28.7 pg (28.0-33.3); Mean Corpuscular Volume 85.6 fL (83.0-100.0); Mean Platelet Volume 10.2 fL (9.4-12.4); Monocytes # 0.6 K/mcL (0.0-1.3); Monocytes % 6.8 %; Neutrophils # 6.2 K/mcL (1.6-8.9); Platelet Count 122 K/mcL (140-400); Red Blood Count 3.62 M/mcL (3.82-4.97); Red Cell Distribution Width 13.2 % (11.5-14.5); Segmented Neutrophils % 75.2 %; White Blood Count 8.3 K/mcL (4.3-11.1)
[2022-02-08 02:00] LABS: INR 2.1; Prothrombin Time 23.3 Seconds (9.4-12.1)
[2022-02-08 02:17] LABS: Calcium 9.6 mg/dL (8.6-10.3); Potassium 4.1 mEq/L (3.5-5.1)
[2022-02-08] MEDS: Insulin LISPRO 300 UNITS/3 ML VIAL SUBQ SCH ×2 (07:12→11:14)
[2022-02-08] MEDS: Spironolactone 25 MG TABLET PO SCH (08:07)
[2022-02-08] MEDS: Colchicine 0.6 MG TABLET PO SCH (08:08)
[2022-02-08] MEDS: Sucralfate 1 GM TABLET PO SCH (08:08)
[2022-02-08] MEDS: *HR* Digoxin 0.125 MG TABLET PO SCH (08:08)
[2022-02-08] MEDS: Isosorbide MONOnitrate (24 HR) 60 MG TAB.ER.24H PO SCH (08:08)
[2022-02-08] MEDS: Furosemide 20 MG TABLET PO SCH (08:08)
[2022-02-08] MEDS: Lactulose Oral Soln 20 GM/30 ML UDC PO SCH (08:09)
[2022-02-08] MEDS: Potassium Chloride Elixir 20 MEQ/15 ML UDC PO SCH (08:09)
[2022-02-08] MEDS: Pantoprazole 40 MG VIAL IVP SCH (08:09)
[2022-02-08] MEDS: Aspirin 81 MG TAB.CHEW PO SCH (08:09)
[2022-02-08] MEDS: Metoprolol XL (24 HR) Succ 25 MG TAB.ER.24H PO SCH (08:09)
[2022-02-08 11:12] VITALS: BP 106/57; PULSE 60; TEMP 98.4; O2SAT 94
[2022-02-08] MEDS ORDERED: *HR* Warfarin 2 MG TABLET PO ONE (18:00)
== END 2022-02-08 14:08 | disposition home or self-care (01) | DRG 246 ==
LOC: EMEROOARM 08:13 → 2NNU 08:13 → SUATTDRO 12:27 → 2NNU 14:16 → 2ANU 02-07 12:22
PROVIDERS: ADMIT Pharmacist; ATTEND Internal Medicine